=== PATIENT | female | born 1940 | race Caucasian/White ===

== ENCOUNTER → 2017-02-14 | Outpatient (CLI) | payer OTHER ==
[~2017-02-14] MED LIST: AMLO10TA2 PO; ASPI81TA28 PO; CHOL100027 PO; CHOL20007 PO; INSDGI SC; INSUINJ14 SC; LISI40TA PO; LVQ750 PO; METF500T PO; METO-217 PO; NVLGI/PEN SQ; PLMINS INH; PLV75 PO; PRED1SUS3 OPR; PRVHFAIN INH; RISP3TAB12 PO; VEIN SUPPORT PO; VENL150C56 PO; VENL75CA PO
[2017-02-14 14:44] LABS: HEMATOCRIT 39.4 % (37-47); MEAN CORPUSCULAR HEMOGLOBIN 26.9 pg (25-34); PLATELET COUNT 200 K/uL (130-400); RED BLOOD COUNT 4.69 M/uL (4.2-5.4); WHITE BLOOD COUNT 6.59 K/uL (4.8-10.8)
[2017-02-14 14:45] LABS: URINE APPEARANCE CLEAR (CLEAR); URINE BILIRUBIN NEG (NEG); URINE COLOR YELLOW; URINE EPITHELIAL CELL AUTO 0-5 /lpf (0-5); URINE NITRITE NEG (NEG); URINE PH 7.5 (4.5-7.5); URINE SPECIFIC GRAVITY 1.006 (1.000-1.030); UROBILINOGEN NEG (NEG)
[2017-02-14 14:47] LABS: MANUAL MICROSCOPIC REQUIRED? NO; REVIEW REQ? NO
[2017-02-14 15:17] LABS: ALB/GLOB RATIO 1.1 (0.9-2); ALT/SGPT 21 U/L (12-78); AST/SGOT 10 U/L (15-37); BLOOD UREA NITROGEN 23 mg/dl (7-18); BUN/CREATININE RATIO 24.5 (10-20); CARBON DIOXIDE 33 mmol/L (21-32); CREATININE 0.92 mg/dl (0.60-1.20); GLUCOSE 91 mg/dl (70-99)
[2017-02-14 15:18] LABS: CREATININE, URINE < 13.0 mg/dl; URINE TOTAL PROTEIN 6.5 mg/dl (0-11.9)
[2017-02-14 15:50] LABS: ALKALINE PHOSPHATASE 64 U/L (45-117); CHLORIDE 100 mmol/L (98-107); POTASSIUM 4.1 mmol/L (3.5-5.1); SODIUM 139 mmol/L (136-145)
[2017-02-15 05:41] LABS: ESTIMATED AVERAGE GLUCOSE 114 mg/dl; HA1C FLAG Normal (Normal)
== END | disposition home or self-care (01) ==
LOC: C.LAB1850 13:38
PROVIDERS: ATTEND Internal Medicine Nephrology
DX: I12.9 Hypertensive chronic kidney disease with stage 1 through stage 4 chronic kidney disease, or unspecified chronic kidney disease (principal); R80.9 Proteinuria, unspecified; N18.3 Chronic kidney disease, stage 3 (moderate); E55.9 Vitamin D deficiency, unspecified; E66.9 Obesity, unspecified; E11.65 Type 2 diabetes mellitus with hyperglycemia

== ENCOUNTER → 2017-05-22 | Outpatient (CLI) | payer OTHER ==
[~2017-05-22] MED LIST changes: -CHOL20007 PO; -LVQ750 PO; -NVLGI/PEN SQ; -PLMINS INH; -PLV75 PO; -PRVHFAIN INH
[2017-05-22 16:13] LABS: BLOOD UREA NITROGEN 23 mg/dl (7-18); BUN/CREATININE RATIO 25.4 (10-20); CALCIUM 9.1 mg/dl (8.5-10.1); CARBON DIOXIDE 32 mmol/L (21-32); CHLORIDE 101 mmol/L (98-107); CHOLESTEROL 140 mg/dl (0-200); CREATININE 0.92 mg/dl (0.60-1.20); GLUCOSE 140 mg/dl (70-99); POTASSIUM 4.2 mmol/L (3.5-5.1); SODIUM 137 mmol/L (136-145); TRIGLYCERIDES 216 mg/dl (0-150); VERY LOW DENSITY LIPOPROT CALC 43 mg/dl
[2017-05-22 16:23] LABS: CHOLESTEROL/HDL RATIO 3.1; HDL CHOLESTEROL 45 mg/dl; LDL CHOLESTEROL CALCULATED 52 mg/dl
[2017-05-23 06:29] LABS: ESTIMATED AVERAGE GLUCOSE 131 mg/dl; HA1C FLAG Normal (Normal)
== END | disposition home or self-care (01) ==
LOC: C.LAB1850 14:11
PROVIDERS: ATTEND Nurse Practitioner Adult Health
DX: E78.1 Pure hyperglyceridemia (principal); E11.319 Type 2 diabetes mellitus with unspecified diabetic retinopathy without macular edema; Z68.36 Body mass index [BMI] 36.0-36.9, adult; E66.9 Obesity, unspecified

== ENCOUNTER 2017-07-22 09:30 | Inpatient (IN) | payer OTHER ==
[~2017-07-22] VITALS: Ht 152.4 cm; Wt 92.4 kg
[2017-07-22] MEDS ORDERED: INSDGI SC (09:52)
[2017-07-22] MEDS ORDERED: CHOL20007 PO (09:52)
[2017-07-22] MEDS ORDERED: NVLGI/PEN SQ (09:52)
--- NOTE | 2017-07-22 10:27 | DIAGNOSTIC IMAGING REPORT ---
CHEST ONE VIEW PORTABLE CLINICAL HISTORY: Fusion, shortness of breath. COMPARISON STUDY: 04/20/2015 FINDINGS: The cardiac and mediastinal contours are normal. There is no evidence of focal pulmonary consolidation. There is no evidence of failure. No pleural effusions are visualized.[ IMPRESSION: No active disease in the chest. Electronically signed by: Wilbert Koenig M.D. 07/22/2017 10:26 AM Dictated Date/Time: 07/22/2017 10:24 AM
[2017-07-22 11:08] LABS: URINE APPEARANCE CLEAR (CLEAR); URINE BILIRUBIN NEG (NEG); URINE COLOR DK YELLOW; URINE EPITHELIAL CELL AUTO >30 /lpf (0-5); URINE NITRITE NEG (NEG); URINE PH 5.5 (4.5-7.5); URINE SPECIFIC GRAVITY 1.019 (1.000-1.030); UROBILINOGEN NEG (NEG); ZZURINE CULT IF INDIC CATH NO
[2017-07-22 11:10] LABS: BASO % 0.2 %; BASO ABS # 0.01 K/uL (0-0.2); COMPLETE YES; EOS % 0.3 %; HEMATOCRIT 34.2 % (37-47); IG% 0.7 %; LYMPH % 4.1 %; LYMPH ABS # 0.25 K/uL (1.2-3.4); MEAN CELL VOLUME 80.7 fL (80-100); MEAN CORPUSCULAR HEMOGLOBIN 26.9 pg (25-34); MEAN CORPUSCULAR HGB CONC 33.3 g/dl (32-36); MEAN PLATELET VOLUME 10.6 fL (7.4-10.4); MONO % 3.6 %; NEUT % 91.1 %; PLATELET COUNT 114 K/uL (130-400); RED BLOOD COUNT 4.24 M/uL (4.2-5.4); WHITE BLOOD COUNT 6.03 K/uL (4.8-10.8)
[2017-07-22 11:10] LABS: MANUAL MICROSCOPIC REQUIRED? NO; REVIEW REQ? YES
[2017-07-22 11:17] LABS: BUN/CREATININE RATIO 27.9 (10-20); CREATININE 1.11 mg/dl (0.60-1.20); POTASSIUM 3.5 mmol/L (3.5-5.1)
[2017-07-22 11:18] LABS: INR 1.4 (0.9-1.1); PARTIAL THROMBOPLASTIN RATIO 1.3; PROTHROMBIN TIME (PATIENT) 14.7 SECONDS (9.0-12.0)
--- NOTE | 2017-07-22 11:19 | DIAGNOSTIC IMAGING REPORT ---
HEAD WITHOUT CONTRAST (CT) CT DOSE: 614.27 mGy.cm HISTORY: Mental status change AMS TECHNIQUE: Multiaxial CT images of the head were performed without the use of intravenous contrast. A dose lowering technique was utilized adhering to the principles of ALARA. Comparison: None. Findings: The paranasal sinuses and mastoid air cells are clear. The calvarium and skull base are intact. The ventricles and sulci are within normal limits. There is no mass, hematoma, midline shift, or acute infarct. Impression: No acute intracranial abnormality. The above report was generated using voice recognition software. It may contain grammatical, syntax or spelling errors. Electronically signed by: Jamar Vanegas M.D. 07/22/2017 11:17 AM Dictated Date/Time: 07/22/2017 11:12 AM
[2017-07-22] MEDS ORDERED: ASPIRIN 81 MG CHEW PO STA (11:35)
[2017-07-22 11:37] LABS: URINE PATH CASTS 1-5 GRANULAR CASTS /lpf (0)
[2017-07-22] MEDS: ASPIRIN 324 MG CHEW PO STA ×2 (11:59→12:04)
[2017-07-22] MEDS ORDERED: OPTIRAY 320 IV PRN (12:30)
[2017-07-22] MEDS ORDERED: ACETAMINOPHEN 325 MG TAB PO PRN (12:45)
[2017-07-22] MEDS ORDERED: MAGNESIUM HYDROXIDE SUSP 30 ML UDC PO PRN (12:45)
[2017-07-22] MEDS ORDERED: GLUCOSE 10 TABS/TUBE PO PRN (12:45)
[2017-07-22] MEDS ORDERED: PHARMACIST DISCHARGE MED REC CONSULT PRN (12:45)
[2017-07-22] MEDS ORDERED: DEXTROSE 50% 50 ML SYR IV PRN (12:45)
[2017-07-22] MEDS ORDERED: ONDANSETRON INJ 2 MG/ML 2 ML VIAL IV PRN (12:45)
[2017-07-22] MEDS ORDERED: GLUCOSE 40% GEL 15 GM TUBE PO PRN (12:45)
[2017-07-22] MEDS ORDERED: GLUCAGON FOR INJ 1 MG VIAL SQ PRN (12:45)
--- NOTE | 2017-07-22 13:00 | History and Physical ---
History & Physical Date & Time of Service: Jul 22, 2017 at 12:41 Chief Complaint: Hot, Confusion, Shuffling, Curtis, Sob Primary Care Physician: Tab Bellamy M.D. History of Present Illness Source: patient, family 77 y/o F who was brought to the ED for concerns of possible CVA. Pt states she has felt very hot and flushed over the last few days. Daughter states that pt is usually cold and covered up, but that she was complaining of being over heated during this time. Pt states "I thought I might have the flu". She had little appetite and slept more during this time. Last night, it was noted that pt was not able to communicate as she usually would. She was unable to form complete sentences and had some work finding issues with slight slurring. She was also unable to ambulate on her own. She could stand, but not move her LE as she usually would. Pt generally ambulates independently. Daughter states that pt's BS was 330 during this episode. Her BS have been in the low to mid 100s recently as she is working on weight loss with diet and exercise (no supplements ) with a Dr. Crawford, a weight loss doctor in the area. She was seen by Dr. Crawford earlier today and it was again noted that her gait was not its usual. Daughter states that as the day has gone on, it continues to improve. Her speech and mentation are now WNL. Her BP at that appt earlier was 150s/50, which daughter states is a bit high for pt (generally 140s systolic). Pt denies SOB, however daughter states that her son noted that pt seemed to be having difficulty breathing. Pt denies fever, chest pain, abd pain, n/v/c/d, LE pain or swelling. Pt does note that she feels abd bloating. As part of her weight loss plan, she does eat a lot of vegetables and has been having more broccoli lately. Again, no supplements for weight loss. Pt states she still feels a bit flushed at this point, but overall improved. She states that she had this flushing feeling a few years ago. It was determined at that time she might have had a mini-stroke, but it was unclear. She was not admitted at that time. She was started on aspirin 81mg, which she states she rarely misses and specifically did not miss over the last week. 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 hx of TIA, on aspirin 81mg Family History Family history was reviewed; no changes noted. neg for LA, CVA Social History Smoking Status: Former Smoker (quit in 2011) Alcohol Use: none Marital Status: single, Occupational Status: retired Immunizations History of Influenza Vaccine: Yes Influenza Vaccine Date: Aug 09, 2011 History of Tetanus Vaccine?: Yes Tetanus Immunization Date: Apr 08, 2007 History of Pneumococcal: Yes Pneumococcal Date: Apr 08, 2012 History of Hepatitis B Vaccine: No Multi-Drug Resistant Organisms History of MDRO: No Allergies Coded Allergies: Bacitracin (Verified Allergy, Unknown, UNKNOWN, 07/22/17) Polymyxin B (Verified Allergy, Unknown, UNKNOWN, 07/22/17) Adhesives (Verified Adverse Reaction, Mild, RED AND ITCHY, 07/22/17) Home Medications Scheduled Amlodipine Besylate (Norvasc), 10 MG PO QAM Aspirin (Aspirin Ec), 81 MG PO QAM Cholecalciferol (Vitamin D 1000 Unit), 1,000 INTER.UNIT PO QAM Cholecalciferol (Vitamin D3), 2,000 UNITS PO DAILY Insulin Aspart (Novolog Flexpen), 6-8 UNITS SQ TIDM Insulin Glargine (Lantus), 16 UNITS SC QPM Lisinopril (Zestril), 40 MG PO QAM Metformin Hcl (Glucophage), 500 MG PO BIDM Metoprolol Succinate (Toprol Xl), 50 MG PO QAM Risperidone (Risperdal), 3 MG PO QAM Venlafaxine Hcl (Effexor Xr), 75 MG PO QAM Venlafaxine Hcl (Effexor Extended Rel), 150 MG PO QAM Review of Systems Pertinent positives and negatives reviewed in HPI--all others negative Physical Exam Vital Signs Date Time Temp Pulse Resp B/P (MAP) Pulse Ox O2 Delivery O2 Flow Rate FiO2 07/22/17 11:17 77 18 124/48 96 Nasal Cannula 2.0 07/22/17 10:52 93 Nasal Cannula 2.0 07/22/17 10:52 86 20 137/52 88 Room Air 07/22/17 10:16 87 20 149/53 91 07/22/17 10:15 86 07/22/17 09:31 37.0 87 18 145/75 90 Room Air General Appearance: WD/WN, no apparent distress Head: normocephalic, atraumatic Eyes: normal inspection, EOMI ENT: hearing grossly normal Neck: supple Respiratory/Chest: normal breath sounds, no respiratory distress Cardiovascular: regular rate, rhythm, no edema Abdomen/GI: non tender, soft, + distended Extremities/Musculoskelatal: no calf tenderness, no pedal edema 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, alert, normal mood/affect, oriented x 3 Skin: normal color, warm/dry (increased skin temp) Diagnostics Laboratory Results Results Past 24 Hours Test 07/22/17 10:10 07/22/17 10:34 Range/Units Urine Color DK YELLOW Urine Appearance CLEAR CLEAR Urine pH 5.5 4.5-7.5 Urine Specific [place] 1.019 1.000-1.030 Urine Protein 2+ NEG Urine Glucose (UA) NEG NEG Urine Ketones NEG NEG Urine Occult Blood NEG NEG Urine Nitrite NEG NEG Urine Bilirubin NEG NEG Urine Urobilinogen NEG NEG Urine Leukocyte Esterase NEG NEG Urine WBC (Auto) 1-5 0-5 /hpf Urine RBC (Auto) 0-4 0-4 /hpf Urine Hyaline Casts (Auto) 5-10 0-5 /lpf Urine Epithelial Cells (Auto) >30 0-5 /lpf Urine Bacteria (Auto) NEG NEG Urine Crystals AMORPHOUS SEDIMENT NONE PRSENT Urine Pathogenic Casts 1-5 GRANULAR CASTS 0 /lpf White Blood Count 6.03 4.8-10.8 K/uL Red Blood Count 4.24 4.2-5.4 M/uL Hemoglobin 11.4 12.0-16.0 g/dL Hematocrit 34.2 37-47 % Mean Corpuscular Volume 80.7 80-100 fL Mean Corpuscular Hemoglobin 26.9 25-34 pg Mean Corpuscular Hemoglobin Concent 33.3 32-36 g/dl Platelet Count 114 130-400 K/uL Mean Platelet Volume 10.6 7.4-10.4 fL Neutrophils (%) (Auto) 91.1 % Lymphocytes (%) (Auto) 4.1 % Monocytes (%) (Auto) 3.6 % Eosinophils (%) (Auto) 0.3 % Basophils (%) (Auto) 0.2 % Neutrophils # (Auto) 5.49 1.4-6.5 K/uL Lymphocytes # (Auto) 0.25 1.2-3.4 K/uL Monocytes # (Auto) 0.22 0.11-0.59 K/uL Eosinophils # (Auto) 0.02 0-0.5 K/uL Basophils # (Auto) 0.01 0-0.2 K/uL RDW Standard Deviation 45.5 36.4-46.3 fL RDW Coefficient of Variation 15.5 11.5-14.5 % Immature Granulocyte % (Auto) 0.7 % Immature Granulocyte # (Auto) 0.04 0.00-0.02 K/uL Prothrombin Time 14.7 9.0-12.0 SECONDS Prothromb Time International Ratio 1.4 0.9-1.1 Activated Partial Thromboplast Time 33.9 21.0-31.0 SECONDS Partial Thromboplastin Ratio 1.3 D-Dimer 2009 0-500 ug/L FEU Sodium Level 126 136-145 mmol/L Potassium Level 3.5 3.5-5.1 mmol/L Chloride Level 92 98-107 mmol/L Carbon Dioxide Level 26 21-32 mmol/L Anion Gap 8.0 3-11 mmol/L Blood Urea Nitrogen 31 7-18 mg/dl Creatinine 1.11 0.60-1.20 mg/dl Est Creatinine Clear Calc Drug Dose 41.6 ml/min Estimated GFR () 54.7 Estimated GFR (Non- 47.2 BUN/Creatinine Ratio 27.9 10-20 Random Glucose 162 70-99 mg/dl Calcium Level 8.0 8.5-10.1 mg/dl Total Bilirubin 0.8 0.2-1 mg/dl Direct Bilirubin 0.4 0-0.2 mg/dl Aspartate Amino Transf (AST/SGOT) 226 15-37 U/L Alanine Aminotransferase (ALT/SGPT) 277 12-78 U/L Alkaline Phosphatase 49 45-117 U/L Troponin I 0.050 0-0.045 ng/ml Total Protein 6.3 6.4-8.2 gm/dl Albumin 2.8 3.4-5.0 gm/dl Diagnostic Radiology CT head neg for acute CXR normal EKG NSR with RBBB, seen prior Impression Assessment and Plan 77 y/o F who was admitted on 07/22 with possible stroke Stroke like sx: Hx of similar with dx of TIA CT head neg for acute Trop with mild elevation, serials pending ECHO pending Flu swab given flushing Lyme, TSH pending PT/OT pending + ddimer: in the setting of elderly female, given unusual sx and new O2 requirement, will order LE US and t/c CT chest HypoNa: ? related to nutritional status vs recently elevated BS Monitor on fluid restriction t/c salt tab if not improving Transaminitis: in the setting of illness and weight loss Monitor and will consider US if no improvement New O2 req: as above, stable on 2L t/c CT chest if other work-up is neg DM: BS recently quite elevated, but improved now Continue with home lantus + SSI PRN A1c pending HTN: continue home meds Hx of ?? TIA: continue aspirin 81mg Depression/paranoia: continue home meds Other: Does wish for cardiac resuscitation, but no intubation. Also states she would not want a feeding tube or other life prolonging measures DM diet SCDs for DVT proph Level of Care Telemetry Resuscitation Status FULL NO MECH VENTILATION VTE Prophylaxis VTE Risk Assessment Done? Y/N: Yes Risk Level: Low
--- NOTE | 2017-07-22 13:19 | DIAGNOSTIC IMAGING REPORT ---
CT ANGIOGRAM OF THE CHEST CLINICAL HISTORY: Hypoxia. COMPARISON STUDY: No previous studies for comparison. TECHNIQUE: Following the IV administration of 94 mL of [id number]-320, CT angiogram of the thorax was performed from the thoracic inlet to the lung bases utilizing the pulmonary embolus protocol. Images are reviewed in the axial, sagittal, and coronal planes. IV contrast was administered without complication. MIP imaging was performed. A dose lowering technique was utilized adhering to the principles of ALARA. CT DOSE: 568.01 mGy.cm FINDINGS: No pathologically enlarged axillary mediastinal or hilar lymph nodes were visualized. There was no evidence of thoracic aortic dilatation. There were no pulmonary artery filling defects to indicate acute pulmonary embolism. No pleural effusions are visualized. There is no focal pulmonary consolidation. There are mild dependent atelectatic changes. The heart is mildly enlarged. No pericardial effusion is visualized IMPRESSION: 1. No evidence of acute pulmonary embolism 2. No evidence of focal pulmonary consolidation Electronically signed by: Wilbert Koenig M.D. 07/22/2017 1:18 PM Dictated Date/Time: 07/22/2017 1:13 PM
[2017-07-22 13:20] VITALS: O2SAT 97; Ht 152.4 cm; Wt 92.4 kg
[2017-07-22 13:54] VITALS: BP 115/71; PULSE 87; TEMP 37; O2SAT 96
[2017-07-22 14:51] LABS: LYME DISEASE AB IGG NEG (NEG); LYME DISEASE AB IGM NEG (NEG)
--- NOTE | 2017-07-22 15:15 | EMERGENCY ROOM VISIT NOTE ---
History Report prepared by Scott: Emeterio Rodriguez Under the Supervision of: Dr. Raymond Pate D.O. First contact with patient: 09:37 Chief Complaint: CONFUSION Stated Complaint: HOT, CONFUSION, SHUFFLING, HAWK, SOB Nursing Triage Summary: pt reports she is hot and daughter reports pt was having difficulty finding words yesterday to form sentances. c/o headache late yesterday afternoon. denies any pain now. pt is dibetic yesterday was 330 given insulin. today was 187 given insulin History of Present Illness The patient is a 77 year old female who presents to the Emergency Room with complaints of resolved altered mental status beginning yesterday. She was seen by her PCP today and was referred to the ED with concerns of possible stroke. She was reported to have been having trouble finding words yesterday and could hardly speak, but is back to normal today. The patient is also reported to have been having some difficulty with walking. She states that her "skin has felt very hot" recently. She also complains of lack of appetite and shakiness. The patient states that she had a headache yesterday, but it has since resolved. She denies chest pain, SOB, nausea, vomiting, fevers, diarrhea, weakness, numbness, or urinary symptoms. Her last normal bowel movement was this morning. The patient's daughter states that the patient has been "shuffling" when she is walking. She states that the patient's walk has returned to normal. She notes that the patient's blood sugar was 330 yesterday. Source of History: patient, family (daughter) Onset: Yesterday Quality: other Timing: resolved Associated Symptoms: + headache (yesterday), No fevers, No chest pain, No SOB, No nausea, No vomiting, No urinary symptoms, No weakness, No numbness Review of Systems See HPI for pertinent positives & negatives. A total of 10 systems reviewed and were otherwise negative. Past Medical & Surgical Medical Problems: (1) Depression (2) DM (diabetes mellitus) (3) HTN (hypertension) (4) Kidney disease Surgical Problems: (1) Hx of tonsillectomy Family History Diabetes mellitus Heart disease Hypertension Social History Smoking Status: Never Smoker Alcohol Use: none Marital Status: single, Housing Status: lives with family Occupation Status: retired Current/Historical Medications Scheduled Amlodipine Besylate (Norvasc), 10 MG PO QAM Aspirin (Aspirin Ec), 81 MG PO QAM Cholecalciferol (Vitamin D 1000 Unit), 1,000 INTER.UNIT PO QAM Cholecalciferol (Vitamin D3), 2,000 UNITS PO DAILY Insulin Aspart (Novolog Flexpen), 6-8 UNITS SQ TIDM Insulin Glargine (Lantus), 16 UNITS SC QPM Lisinopril (Zestril), 40 MG PO QAM Metformin Hcl (Glucophage), 500 MG PO BIDM Metoprolol Succinate (Toprol Xl), 50 MG PO QAM Risperidone (Risperdal), 3 MG PO QAM Venlafaxine Hcl (Effexor Xr), 75 MG PO QAM Venlafaxine Hcl (Effexor Extended Rel), 150 MG PO QAM Allergies Coded Allergies: Bacitracin (Verified Allergy, Unknown, UNKNOWN, 07/22/17) Polymyxin B (Verified Allergy, Unknown, UNKNOWN, 07/22/17) Adhesives (Verified Adverse Reaction, Mild, RED AND ITCHY, 07/22/17) Physical Exam Vital Signs Date Time Temp Pulse Resp B/P (MAP) Pulse Ox O2 Delivery O2 Flow Rate FiO2 07/22/17 11:17 77 18 124/48 96 Nasal Cannula 2.0 07/22/17 10:52 93 Nasal Cannula 2.0 07/22/17 10:52 86 20 137/52 88 Room Air 07/22/17 10:16 87 20 149/53 91 07/22/17 10:15 86 07/22/17 09:31 37.0 87 18 145/75 90 Room Air Physical Exam GENERAL: Sitting up on edge of bed, slow to respond, disheveled, no acute distress. EYE EXAM: normal conjunctiva. PERRL and EOM's intact. OROPHARYNX: no exudate, no erythema, lips, buccal mucosa, and tongue normal and mucous membranes are moist NECK: supple, no nuchal rigidity, no adenopathy, non-tender LUNGS: Clear to auscultation. Normal chest wall mechanics HEART: no murmurs, S1 normal and S2 normal ABDOMEN: abdomen soft, non-tender, normo-active bowel sounds, no masses, no rebound or guarding. BACK: Back is symmetrical on inspection and there is no deformity, no midline tenderness, no CVA tenderness. SKIN: no rashes and no bruising UPPER EXTREMITIES: upper extremities are grossly normal. LOWER EXTREMITIES: No pitting edema. NEURO EXAM: Normal sensorium, cranial nerves II-XII intact, normal speech, no weakness of arms, no weakness of legs. No drift. Finger to nose intact. Gross sensation intact. Ambulates without difficulty. Medical Decision & Procedures ER Provider Diagnostic Interpretation: Radiology results as stated below per my review and the radiologist's interpretation: HEAD WITHOUT CONTRAST (CT) Findings: The paranasal sinuses and mastoid air cells are clear. The calvarium and skull base are intact. The ventricles and sulci are within normal limits. There is no mass, hematoma, midline shift, or acute infarct. Impression: No acute intracranial abnormality. The above report was generated using voice recognition software. It may contain grammatical, syntax or spelling errors. Electronically signed by: Jamar Vanegas M.D. 07/22/2017 11:17 AM CHEST ONE VIEW PORTABLE FINDINGS: The cardiac and mediastinal contours are normal. There is no evidence of focal pulmonary consolidation. There is no evidence of failure. No pleural effusions are visualized.[ IMPRESSION: No active disease in the chest. Electronically signed by: Wilbert Koenig M.D. 07/22/2017 10:26 AM Laboratory Results 07/22/17 10:34 Red Blood Count 4.24, Mean Corpuscular Volume 80.7, Mean Corpuscular Hemoglobin 26.9, Mean Corpuscular Hemoglobin Concent 33.3, Mean Platelet Volume 10.6, Neutrophils (%) (Auto) 91.1, Lymphocytes (%) (Auto) 4.1, Monocytes (%) (Auto) 3.6, Eosinophils (%) (Auto) 0.3, Basophils (%) (Auto) 0.2, Neutrophils # (Auto) 5.49, Lymphocytes # (Auto) 0.25, Monocytes # (Auto) 0.22, Eosinophils # (Auto) 0.02, Basophils # (Auto) 0.01 07/22/17 10:34 Test 07/22/17 10:10 07/22/17 10:34 Urine Color DK YELLOW Urine Appearance CLEAR (CLEAR) Urine pH 5.5 (4.5-7.5) Urine Specific [place] 1.019 (1.000-1.030) Urine Protein 2+ (NEG) Urine Glucose (UA) NEG (NEG) Urine Ketones NEG (NEG) Urine Occult Blood NEG (NEG) Urine Nitrite NEG (NEG) Urine Bilirubin NEG (NEG) Urine Urobilinogen NEG (NEG) Urine Leukocyte Esterase NEG (NEG) Urine WBC (Auto) 1-5 /hpf (0-5) Urine RBC (Auto) 0-4 /hpf (0-4) Urine Hyaline Casts (Auto) 5-10 /lpf (0-5) Urine Epithelial Cells (Auto) >30 /lpf (0-5) Urine Bacteria (Auto) NEG (NEG) Urine Crystals AMORPHOUS SEDIMENT (NONE Urine Pathogenic Casts 1-5 GRANULAR CASTS /lpf (0) White Blood Count 6.03 K/uL (4.8-10.8) Red Blood Count 4.24 M/uL (4.2-5.4) Hemoglobin 11.4 g/dL (12.0-16.0) Hematocrit 34.2 % (37-47) Mean Corpuscular Volume 80.7 fL (80-100) Mean Corpuscular Hemoglobin 26.9 pg (25-34) Mean Corpuscular Hemoglobin Concent 33.3 g/dl (32-36) Platelet Count 114 K/uL (130-400) Mean Platelet Volume 10.6 fL (7.4-10.4) Neutrophils (%) (Auto) 91.1 % Lymphocytes (%) (Auto) 4.1 % Monocytes (%) (Auto) 3.6 % Eosinophils (%) (Auto) 0.3 % Basophils (%) (Auto) 0.2 % Neutrophils # (Auto) 5.49 K/uL (1.4-6.5) Lymphocytes # (Auto) 0.25 K/uL (1.2-3.4) Monocytes # (Auto) 0.22 K/uL (0.11-0.59) Eosinophils # (Auto) 0.02 K/uL (0-0.5) Basophils # (Auto) 0.01 K/uL (0-0.2) RDW Standard Deviation 45.5 fL (36.4-46.3) RDW Coefficient of Variation 15.5 % (11.5-14.5) Immature Granulocyte % (Auto) 0.7 % Immature Granulocyte # (Auto) 0.04 K/uL (0.00-0.02) Prothrombin Time 14.7 SECONDS (9.0-12.0) Prothromb Time International Ratio 1.4 (0.9-1.1) Activated Partial Thromboplast Time 33.9 SECONDS (21.0-31.0) Partial Thromboplastin Ratio 1.3 D-Dimer 2010 ug/L FEU (0-500) Anion Gap 8.0 mmol/L (3-11) Est Creatinine Clear Calc Drug Dose 41.6 ml/min Estimated GFR () 54.7 Estimated GFR (Non- 47.2 BUN/Creatinine Ratio 27.9 (10-20) Calcium Level 8.0 mg/dl (8.5-10.1) Total Bilirubin 0.8 mg/dl (0.2-1) Direct Bilirubin 0.4 mg/dl (0-0.2) Aspartate Amino Transf (AST/SGOT) 226 U/L (15-37) Alanine Aminotransferase (ALT/SGPT) 277 U/L (12-78) Alkaline Phosphatase 49 U/L (45-117) Troponin I 0.050 ng/ml (0-0.045) Total Protein 6.3 gm/dl (6.4-8.2) Albumin 2.8 gm/dl (3.4-5.0) Lyme Disease IgG Antibody NEG (NEG) Lyme Disease IgM Antibody NEG (NEG) Laboratory results per my review. Medications Administered Medications (Trade) Dose Ordered Sig/Jakub Route Start Time Stop Time Status Last Admin Dose Admin Aspirin (Aspirin Chew) 324 mg NOW STAT PO 07/22/17 11:35 07/22/17 11:36 DC 07/22/17 12:01 324 MG ECG Indication: altered mental status Rate (beats per minute): 90 Rhythm: sinus rhythm Findings: RBBB, other (T-wave flattening inferiorly) ED Course ED COURSE: Vital signs were reviewed and showed mild hypertension. The patients medical record was reviewed The above diagnostic studies were performed and reviewed. ED treatments and interventions as stated above. 0939: The patient was evaluated in room B4B. A complete history and physical examination was performed. 1135: Ordered Aspirin Chew 324 mg PO. 1144: Upon reevaluation, the patient is resting comfortably. I discussed my findings with the patient and she understands and agrees with the treatment plan. Based on the patients age, coexisting illnesses, exam and lab findings the decision to treat as an inpatient was made. The patient remained stable while under my care. The patient will be evaluated for further management. Medical Decision Differential diagnoses includes but is not limited to toxic, metabolic, infectious, traumatic, cardiac, neurologic, hematologic, psychiatric and inflammatory etiologies. Patient is a 77-year-old female who presents to ER feeling hot and shaky. Family notes that yesterday patient had a slurred speech and difficulty talking. She also notes patient has been having trouble inability. Patient saw PCP today. Patient's completely neurologically intact today. CBC was unremarkable. Sodium was 126 along with a transaminitis in the 200s and elevated troponin at 0.05. EKG was nondiagnostic. D-dimer was elevated and CT PE was performed and was negative with the hypoxia. CT head was negative. Chest x-ray was unremarkable. Patient was given fluids. She was updated at bedside admits internal medicine for altered mental status, possible TIA, hypernatremia and transaminitis. Medication Reconcilliation Current Medication List: was personally reviewed by me Blood Pressure Screening Patient's blood pressure: Elevated blood pressure Blood pressure disposition: Elevated BP felt to be situational Consults Time Called: 1135 Consulting Physician: Dr. Ledesma -FELICITY Returned Call: [phone] I reviewed the patient's case with Dr. Ledesma. [facility] [place] will evaluate the patient for further management. Impression Primary Impression: Hyponatremia Additional Impressions: Transaminitis Elevated troponin Anemia Scribe Attestation The scribe's documentation has been prepared under my direction and personally reviewed by me in its entirety. I confirm that the note above accurately reflects all work, treatment, procedures, and medical decision making performed by me. Departure Information Dispostion Being Evaluated By Hospitalist Referrals Tab Bellamy M.D. (PCP) Patient Instructions My [facility] Problem Qualifiers Additional Impressions: Anemia Anemia type: unspecified type Qualified Codes: D64.9 - Anemia, unspecified
[2017-07-22 15:27] VITALS: BP 138/63; PULSE 87; TEMP 36.8; O2SAT 95
--- NOTE | 2017-07-22 16:41 | ECHOCARDIOGRAM REPORT ---
*NOTICE TO RECEIVING [facility] This information is strictly Confidential and protected under [place] law. [place] law prohibits you from making any further disclosure of this information unless further disclosure is expressly permitted by the written consent of the person to whom it pertains or is authorized by law. A general authorization for the release of medical or other information is not sufficient for this purpose. Hospital accepts no responsibility if the information is made available to any other person, INCLUDING THE PATIENT. Interpretation Summary * Name: SAMANTHA REDDY Study Date: 07/22/2017 02:36 PM BP: 124/48 mmHg * Patient Location: .2T\S\S232\S\1 HR: 77 * : 1940 (M/d/yyy) Gender: Female Height: 60 in * Age: 77 yrs Ethnicity: CA Weight: 202 lb * Ordering Physician: Inna Ledesma * Performed By: Andree Giron RDCS * * Reason For Study: ELEVATED TROP * BSA: 1.9 m2 * -- Conclusions -- * There is borderline concentric left ventricular hypertrophy. * Left ventricular systolic function is normal. * Grade I diastolic dysfunction, (abnormal relaxation pattern). * Compared to an echocardiogram from 2012 there is no significant change Procedure Details * A complete two-dimensional transthoracic echocardiogram was performed (2D, M-mode, Doppler and color flow Doppler). * The study was technically difficult. * There were technical limitations due to patient'sbody habitus * A contrast injection of Definity was performed to improve assessment of LV function. * Contrast was injected into an intravenous site in the left arm. * One vial of Definity ultrasound contrast was diluted in normal saline to a total volume of 10 ml. A total of '3' ml of solution was administered during imaging. * Lot # [id number] of Definity utilized for procedure. * Expiration date 07/16. * The attending nurse who injected the contrast agent was LISBET MURPHY RN. Left Ventricle * The left ventricle is normal in size. * There is borderline concentric left ventricular hypertrophy. * Ejection Fraction = >70 %. * Left ventricular systolic function is normal. * Grade I diastolic dysfunction, (abnormal relaxation pattern). * The left ventricular wall motion is normal. Right Ventricle * The right ventricle is grossly normal size. * The right ventricular systolic function is normal as assessed by tricuspid annular plane systolic excursion (TAPSE) (normal >1.5 cm). Atria * The left atrial size is normal. * Right atrial size is normal. Mitral Valve * The mitral valve anatomy is normal. * Significant mitral regurgitation is absent. Tricuspid Valve * The tricuspid valve is not well visualized. * Significant tricuspid regurgitation is absent. Aortic Valve * The aortic valve is normal in structure and function. * No hemodynamically significant valvular aortic stenosis. * No aortic regurgitation is present. Pericardium/Pleural * There is no pericardial effusion. Great Vessels * Normal inferior vena cava diameter and respiratory variation suggests normal central venous pressure. MMode 2D Measurements and Calculations IVSd 1.5 cm IVSs 2.0 cm LVIDd 4.3 cm LVIDs 2.7 cm LVPWd 1.3 cm LVPWs 1.9 cm IVS/LVPW 1.2 FS 37.3 % EDV(Teich) 81.5 ml ESV(Teich) 26.4 ml EF(Teich) 67.6 % EDV(cubed) 77.6 ml ESV(cubed) 19.1 ml EF(cubed) 75.3 % % IVS thick 27.5 % % LVPW thick 45.1 % LV mass(C)d 231.8 grams LV mass(C)dI 123.7 grams/m\S\2 LV mass(C)s 212.7 grams LV mass(C)sI 113.5 grams/m\S\2 SV(Teich) 55.1 ml SI(Teich) 29.4 ml/m\S\2 SV(cubed) 58.4 ml SI(cubed) 31.2 ml/m\S\2 ACS 1.5 cm LA dimension 3.5 cm asc Aorta Diam 2.5 cm LVOT diam 1.8 cm LVOT area 2.4 cm\S\2 LVAd ap4 30.8 cm\S\2 LVLd ap4 7.3 cm EDV(MOD-sp4) 106.2 ml EDV(sp4-el) 110.7 ml LVAs ap4 15.0 cm\S\2 LVLs ap4 5.9 cm ESV(MOD-sp4) 32.5 ml ESV(sp4-el) 32.5 ml EF(MOD-sp4) 69.4 % EF(sp4-el) 70.6 % LVAd ap2 34.1 cm\S\2 LVLd ap2 7.9 cm EDV(MOD-sp2) 120.1 ml EDV(sp2-el) 124.8 ml LVAs ap2 16.3 cm\S\2 LVLs ap2 6.4 cm ESV(MOD-sp2) 35.4 ml ESV(sp2-el) 34.8 ml EF(MOD-sp2) 70.5 % EF(sp2-el) 72.1 % LVLd %diff 8.0 % EDV(MOD-bp) 118.3 ml LVLs %diff 8.5 % ESV(MOD-bp) 33.3 ml EF(MOD-bp) 71.9 % SV(MOD-sp4) 73.8 ml SI(MOD-sp4) 39.4 ml/m\S\2 SV(MOD-sp2) 84.7 ml SI(MOD-sp2) 45.2 ml/m\S\2 SV(MOD-bp) 85.1 ml SI(MOD-bp) 45.4 ml/m\S\2 SV(sp4-el) 78.2 ml SI(sp4-el) 41.7 ml/m\S\2 SV(sp2-el) 90.0 ml SI(sp2-el) 48.0 ml/m\S\2 Doppler Measurements and Calculations MV E max vivian 99.8 cm/sec MV A max vivian 113.8 cm/sec MV E/A 0.88 MV dec time 0.26 sec Ao V2 max 153.6 cm/sec Ao max PG 9.4 mmHg Ao max PG (full) 3.5 mmHg NAYELI(V,A) 1.9 cm\S\2 NAYELI(V,D) 1.9 cm\S\2 LV V1 max PG 5.9 mmHg LV V1 max 121.5 cm/sec PA V2 max 66.9 cm/sec PA max PG 1.8 mmHg
[2017-07-22] MEDS: INSULIN ASPART 100 UNITS/ML 3 ML PEN SC SCH ×2 (17:11→21:12)
[2017-07-22 19:05] LABS: CKMB/CK RATIO 0.6 (0-3.0)
--- NOTE | 2017-07-22 19:10 | DIAGNOSTIC IMAGING REPORT ---
BILATERAL LOWER EXTREMITY VENOUS DOPPLER HISTORY: new O2 req, + ddimer COMPARISON STUDY: None. FINDINGS: There is normal compressibility, flow, and augmentation within the bilateral lower extremity deep venous systems. IMPRESSION: No DVT within the right or left lower extremity. Electronically signed by: Willam Reyes M.D. 07/22/2017 7:09 PM Dictated Date/Time: 07/22/2017 7:08 PM
[2017-07-22 20:00] VITALS: BP 125/76; PULSE 78; TEMP 37; O2SAT 96
[2017-07-22] MEDS ORDERED: NURSING VERBAL MED ORDER ONE (20:45)
[2017-07-22] MEDS ORDERED: INSULIN GLARGINE SOLOSTAR 100 UNITS/ML 3 ML PEN SC SCH (21:00)
[2017-07-22] MEDS ORDERED: RISPERIDONE 3 MG TAB PO SCH (21:00)
[2017-07-22 23:47] VITALS: BP 154/78; PULSE 75; TEMP 36.8; O2SAT 97
[2017-07-22 23:59] VITALS: O2SAT 97
[2017-07-23 01:17] LABS: INFLUENZA A PCR Neg for Influ A (NEG); INFLUENZA B PCR Neg for Influ B (NEG)
[2017-07-23 03:18] LABS: BUN/CREATININE RATIO 28.8 (10-20); CALCIUM 8.1 mg/dl (8.5-10.1); CKMB/CK RATIO 0.7 (0-3.0); CREATININE 0.96 mg/dl (0.60-1.20); POTASSIUM 3.3 mmol/L (3.5-5.1)
[2017-07-23 03:59] VITALS: BP 147/75; PULSE 74; TEMP 37.6; O2SAT 96
[2017-07-23 04:00] VITALS: O2SAT 96
[2017-07-23] MEDS ORDERED: POTASSIUM CHLORIDE 20 MEQ TABCR PO STA (05:57)
[2017-07-23 06:56] LABS: ESTIMATED AVERAGE GLUCOSE 134 mg/dl; HA1C FLAG Normal (Normal)
[2017-07-23 07:36] VITALS: BP 144/66; PULSE 76; TEMP 36.9; O2SAT 96
[2017-07-23] MEDS: INSULIN ASPART 100 UNITS/ML 3 ML PEN SC SCH ×2 (08:11→12:33)
--- NOTE | 2017-07-23 08:48 | Clinical Documentation Query ---
CLINICAL DOCUMENTATION QUERY 77 y/o F who was admitted on 07/22 with possible stroke: In your clinical opinion is this patient being managed for: ( ) Encephalopathy, resolved ( x ) Not Agree, AMS related to TIA ( ) Other explanation of clinical findings (Please Explain) ( ) Unable to determine (Please Define) ( ) Need to Discuss The medical record reflects the following clinical findings, treatment, and risk factors. Clinical Indicators: Altered mental status, confusion, lethargic, BSG 330 Treatment: CT head/chest, aspiration precautions, neuro checks Risk Factors: Age, possible TIA/CVA, fall risk Please clarify and document your clinical opinion in the progress notes and discharge summary. Terms such as "probable", "suspected", "likely", "questionable", "possible", or "still to be ruled out" are acceptable. IF IN AGREEMENT, YOU MUST DOCUMENT ABOVE DIAGNOSTIC STATEMENT IN DAILY PROGRESS NOTES AND DISCHARGE SUMMARY. This document is not part of the patient's record. Thank You, Nanette Shaefr RN [phone]
[2017-07-23] MEDS ORDERED: CHOLECALCIFEROL 1000 INTER.UNIT TAB PO SCH ×2 (09:00)
[2017-07-23] MEDS ORDERED: VENLAFAXINE HCL XR 150 MG CAPXR PO SCH (09:00)
[2017-07-23] MEDS ORDERED: ASPIRIN 81 MG ECTAB PO SCH (09:00)
[2017-07-23] MEDS ORDERED: VENLAFAXINE HCL XR 75 MG CAPXR PO SCH (09:00)
[2017-07-23] MEDS ORDERED: METOPROLOL SUCC 50MG EXT REL TAB PO SCH (09:00)
[2017-07-23] MEDS ORDERED: RISPERIDONE 3 MG TAB PO SCH (09:00)
[2017-07-23] MEDS ORDERED: LISINOPRIL 40 MG TAB PO SCH (09:00)
[2017-07-23] MEDS ORDERED: AMLODIPINE BESYLATE 5 MG TAB PO SCH (09:00)
[2017-07-23 09:42] LABS: MEAN CORPUSCULAR HGB CONC 33.5 g/dl (32-36)
[2017-07-23 09:48] LABS: HEMATOCRIT 32.5 % (37-47); MEAN CORPUSCULAR HEMOGLOBIN 26.8 pg (25-34); RED BLOOD COUNT 4.06 M/uL (4.2-5.4); WHITE BLOOD COUNT 4.13 K/uL (4.8-10.8)
[2017-07-23 10:30] VITALS: BP 137/76; PULSE 72; TEMP 36.6; O2SAT 93
[2017-07-23 10:40] LABS: MEAN PLATELET VOLUME 11.6 fL (7.4-10.4); PLATELET COUNT 86 K/uL (130-400)
[2017-07-23 10:41] LABS: PLT ESTIMATE DECREASED
--- NOTE | 2017-07-23 13:49 | Discharge Instructions ---
Discharge Instructions Date of Service Jul 23, 2017. Admission Reason for Admission: Confusion,Difficulty Walking Discharge Discharge Diagnosis / Problem: Transient ischemic attack Discharge Goals Goal(s): Decrease discomfort, Improve function, Diagnostic testing, Therapeutic intervention Activity Recommendations Activity Limitations: resume your previous activity (as tolerated) . Instructions / Follow-Up Instructions / Follow-Up You were admitted to the hospital after presenting with transient difficulty speaking, confusion, and gait dysfunction. A head CT scan was negative for acute stroke. Your symptoms did resolve on their own, and this is thought to be secondary to a transient ischemic attack (TIA) or "mini-stroke". A cholesterol panel was checked, and this showed that your cholesterol levels are all very low except for your triglycerides. Initiation of a cholesterol medication was held at this time due to your other cholesterol being so low. An echocardiogram or ultrasound of the heart was also checked, and this was normal. Medications: *No changes were made to your medications. Please be sure to take your aspirin every day. Your primary care provider may decide to later add on a medication to help lower your triglycerides. Follow up: *You have been scheduled to follow up at Dr. Bellamy's office with Megan Gtz on July 28 at 1:50 pm. Please seek medical attention if you experience fevers, chills, sweats, changes in vision, dizziness/lightheadedness, loss of consciousness, fall, sudden weakness especially on one side, trouble speaking, slurred speech, chest pain, shortness of breath, nausea, vomiting, numbness or tingling. Risk Factors for Stroke: You can reduce your chances of stroke by working with your medical provider to adopt a healthy lifestyle. Some specific ways to lower your chance of stroke are: * If you are a smoker, now is the time to stop smoking cigarettes * If you are diabetic, improve the control of your blood sugars * Avoid excessive amounts of alcohol * Control high blood pressure * Lose weight if you are overweight * Be sure to lead an active lifestyle * Eat a healthy diet low in salt, cholesterol and fat You should know about other risk factors for stroke that you are unable to control. These include: * Age 55 years or older * Male gender * Certain racial groups: , or / * Family History of Stroke, Mini stroke or Heart Attack * Sickle Cell Disease Follow Up: It is important for you to keep your follow up appointments with your medical provider. Current Hospital Diet Patient's current hospital diet: Diabetes Type 2 Diet Discharge Diet Recommended Diet: AHA Diet (Heart Healthy), Diabetes Type 2 Diet Pending Studies Studies pending at discharge: no Laboratory Results Hemoglobin A1c Test 07/23/17 02:23 Range/Units Estimated Average Glucose 134 mg/dl Hemoglobin A1c 6.3 H 4.5-5.6 % Lipid Panel Test 07/23/17 02:23 Range/Units Triglycerides Level 220 H 0-150 mg/dl Cholesterol Level 72 0-200 mg/dl HDL Cholesterol 12 mg/dl Cholesterol/HDL Ratio 6.0 LDL Cholesterol, Calculated 16 mg/dl Medical Emergencies . Who to Call and When: Medical Emergencies: Call 911 immediately if you experience any of the following warning signs and symptoms of Stroke: * Sudden numbness or weakness of the face, arm or leg, especially on one side of the body * Sudden confusion, trouble speaking or understanding * Sudden trouble seeing in one or both eyes * Sudden trouble walking, dizziness, loss of balance or coordination * Sudden severe headache with no cause Do not delay calling 911 if you experience any warning signs or symptoms of a stroke. Delay in seeking medical attention may affect what treatments can be given to you. . Non-Emergent Contact Non-Emergency issues call your: Primary Care Provider . Past History Medical & Surgical History: (1) TIA (transient ischemic attack) . "Provider Documentation" section prepared by Natividad Basilio. . Stroke Core Measures Reason no t-PA for Stroke: Treatment not indicated Reason no antithrom by day 2: Treatment not indicated Reason no antithrom at D/C: Treatment provided - N/A Reason no statin at D/C: Treatment not indicated (cholesterol very low) Reason no anticoag w/a fib: Treatment not indicated VTE Core Measure Inpt VTE Proph given/why not?: SCD's
[2017-07-23 13:59] VITALS: BP 137/76; PULSE 72; TEMP 36.6; O2SAT 93
--- NOTE | 2017-07-23 15:18 | Discharge Summary ---
Discharge Summary Date of Service Jul 23, 2017. (Natividad Basilio PA-C) Discharge Summary Admission Date: Jul 22, 2017 at 12:40 Discharge Date: Jul 23, 2017 Discharge Disposition: Home Principal Diagnosis: TIA Problems/Secondary Diagnoses: HTN DM II Immunizations: Have You Had Influenza Vaccine: Yes Influenza Vaccine Date: Aug 09, 2011 History of Tetanus Vaccine?: Yes Tetanus Immunization Date: Apr 08, 2007 History of Pneumococcal: Yes Pneumococcal Date: Apr 08, 2012 History of Hepatitis B Vaccine: No Procedures: Echocardiogram: * The tricuspid valve is not well visualized. * Significant tricuspid regurgitation is absent. Aortic Valve * The aortic valve is normal in structure and function. * No hemodynamically significant valvular aortic stenosis. * No aortic regurgitation is present. Pericardium/Pleural * There is no pericardial effusion. Great Vessels * Normal inferior vena cava diameter and respiratory variation suggests normal central venous pressure. (Natividad Basilio PA-C) Medication Reconciliation Continued Medications: Amlodipine Besylate (Norvasc) 10 Mg Tab 10 MG PO QAM, TAB Aspirin (Aspirin Ec) 81 Mg Tab 81 MG PO QAM Cholecalciferol (Vitamin D 1000 Unit) 1,000 Unit Cap 1000 INTER.UNIT PO QAM, CAP Cholecalciferol (Vitamin D3) 2,000 Unit Tab 2000 UNITS PO DAILY for 90 Days, TAB 3 Refills Insulin Aspart (Novolog Flexpen) 100 Units/Ml Inj 6-8 UNITS SQ TIDM Insulin Glargine (Lantus) 100 Unit/Ml Inj 16 UNITS SC QPM, VIAL Lisinopril (Zestril) 40 Mg Tab 40 MG PO QAM Metformin Hcl (Glucophage) 500 Mg Tab 500 MG PO BIDM, TAB Metoprolol Succinate (Toprol Xl) 50 Mg Tabcr 50 MG PO QAM Risperidone (Risperdal) 3 Mg Tab 3 MG PO QAM Venlafaxine Hcl (Effexor Xr) 75 Mg Cap 75 MG PO QAM 225MG TOTAL Venlafaxine Hcl (Effexor Extended Rel) 150 Mg Cap 150 MG PO QAM 225MG TOTAL Discharge Exam The patient reports feeling well. Per patient and daughter, she is back to baseline. She states her right facial droop is chronic. She denies any trouble with word finding, slurred speech, or any difficulty speaking. The patient denies fevers, chills, sweats, chest pain, palpitations, claudication, cough, wheezing, shortness of breath, nausea, vomiting, abdominal pain, dysuria , hematuria, urinary retention, paralysis, weakness, numbness and tingling. Review of Systems: Constitutional: No fever, No chills, No sweats Eyes: No worsening of vision, No eye pain, No diplopia ENT: No hearing loss, No sore throat, No trouble swallowing Respiratory: No cough, No wheezing, No shortness of breath Cardiovascular: No chest pain, No claudication, No palpitations Abdomen: No pain, No nausea, No vomiting Musculoskeletal: No joint pain, No muscle pain, No calf pain Genitourinary - Female: No dysuria, No urinary retention, No hematuria Neurologic: No paralysis, No weakness, No numbness/tingling Integumentary: No rash, No itch, No color change Physical Exam: General Appearance: WD/WN, no apparent distress, + obese Eyes: normal inspection, PERRL, EOMI ENT: normal ENT inspection, hearing grossly normal, pharynx normal Neck: supple, no JVD, trachea midline Respiratory/Chest: lungs clear, normal breath sounds, no respiratory distress Cardiovascular: regular rate, rhythm, no gallop, no murmur Abdomen / GI: normal bowel sounds, non tender, soft Extremities: normal inspection, no calf tenderness, no pedal edema Neurologic/Psychiatric: no motor/sensory deficits, alert, normal mood/affect , oriented x 3, + facial droop (right side, chronic) Skin: normal color, warm/dry, no rash (Natividad Basilio ., PA-C) Hospital Course 77 y/o female with a history of HTN, DM II, CKD stage III, ?TIA/CVA, depression and paranoia who was admitted on 07/22 with possible stroke. Suspected TIA, h/o ?TIA/CVA--resolved -Admit to telemetry. No acute events overnight. Pt in SR with HR 70s-90s -Stroke protocol -Head CT negative. Pt refuses MRI -Trop mildly elevated initially, then trended down. Peak trop 0.05. Cardiac enzymes otherwise negative x 3 -Echo shows LVEF of 70%, grade 1 diastolic dysfunction. No significant change from 2012 study. -Lipid panel shows triglycerides 220, total cholesterol 72, LDL 16, HDL 12 -No statin at this time due to very low cholesterol levels. Hold off on fenofibrate for now, will leave up to PCP to possibly start at later date -Continue ASA 81 mg PO qd -HgbA1c 6.3 on 07/23 -Flu and Lyme negative. Pt had presented with flushing, resolved -PT/OT--recommend return home with family Elevated d-dimer -Ultrasound negative for DVT -CT chest negative for PE HypoNa: ? related to nutritional status vs recently elevated BS--improving -Sodium 128 on discharge. Asymptomatic Transaminitis--improving -In the setting of illness and weight loss -LFTs trending down on discharge, asymptomatic DM II--A1c as above -Hold metformin -Lantus 16 units SC qpm -Insulin sliding scale -Check BSGs q ac and qhs HTN--stable -Continue amlodipine 10 mg PO qd, lisinopril 40 mg PO qd, and metoprolol succinate 50 mg PO qd CKD stage III--stable -Creatinine stable, at baseline Depression/paranoia--stable -Continue Risperdal 3 mg PO qd and Effexor 225 mg PO qd DVT prophylaxis -SCDs Code Status -Level III, FULL NO [facility] Total Time Spent: Greater than 30 minutes This includes examination of the patient, discharge planning, medication reconciliation, and communication with other providers. (Natividad Basilio ., PA-C) I agree with PA assessment and plan and have seen and examined pt myself Resting comfortably in bed VSS Labs reviewed No neuro deficits elicited Facial droop is residual from previous stroke Pt refusing MRI at this time ECHO unremarkable DC home at this time (Jose E Vang, D.O.) Discharge Instructions Please refer to the electronic Patient Visit Report (Discharge Instructions) for additional information. (Natividad Basilio ., EDDI-C) Additional Copies To Megan Gtz PA-C
== END 2017-07-23 14:55 | disposition home or self-care (01) | DRG 69 ==
LOC: C.EDB 09:31 → C.2T 12:40 → ENRESERV 13:08
PROVIDERS: ADMIT Family Medicine; ATTEND Family Medicine
DX: G45.9 Transient cerebral ischemic attack, unspecified (principal); E87.1 Hypo-osmolality and hyponatremia; R79.1 Abnormal coagulation profile; R74.0 Nonspecific elevation of levels of transaminase and lactic acid dehydrogenase [LDH]; E11.9 Type 2 diabetes mellitus without complications; I12.9 Hypertensive chronic kidney disease with stage 1 through stage 4 chronic kidney disease, or unspecified chronic kidney disease; N18.3 Chronic kidney disease, stage 3 (moderate); F32.9 Major depressive disorder, single episode, unspecified; F22 Delusional disorders; E66.9 Obesity, unspecified; Z68.39 Body mass index [BMI] 39.0-39.9, adult; Z86.73 Personal history of transient ischemic attack (TIA), and cerebral infarction without residual deficits; Z87.891 Personal history of nicotine dependence; Z79.4 Long term (current) use of insulin; Z79.82 Long term (current) use of aspirin; Z79.84 Long term (current) use of oral hypoglycemic drugs; Z79.899 Other long term (current) drug therapy; Z88.1 Allergy status to other antibiotic agents

== ENCOUNTER → 2017-07-28 | Outpatient (CLI) | payer OTHER ==
[~2017-07-28] MED LIST changes: +CHOL20007 PO; -INSUINJ14 SC; +NVLGI/PEN SQ; -PRED1SUS3 OPR; -VEIN SUPPORT PO
[2017-07-28 16:33] LABS: BASO % 0.2 %; BASO ABS # 0.02 K/uL (0-0.2); COMPLETE YES; EOS % 1.9 %; HEMATOCRIT 38.9 % (37-47); IG% 1.4 %; LYMPH % 17.1 %; LYMPH ABS # 1.37 K/uL (1.2-3.4); MEAN CELL VOLUME 83.8 fL (80-100); MEAN CORPUSCULAR HEMOGLOBIN 27.2 pg (25-34); MEAN CORPUSCULAR HGB CONC 32.4 g/dl (32-36); MONO % 8.7 %; NEUT % 70.7 %; PLATELET COUNT 256 K/uL (130-400); RED BLOOD COUNT 4.64 M/uL (4.2-5.4); WHITE BLOOD COUNT 8.01 K/uL (4.8-10.8)
[2017-07-28 16:37] LABS: ALT/SGPT 78 U/L (12-78); AST/SGOT 24 U/L (15-37); BLOOD UREA NITROGEN 21 mg/dl (7-18); BUN/CREATININE RATIO 22.6 (10-20); CALCIUM 9.2 mg/dl (8.5-10.1); CARBON DIOXIDE 32 mmol/L (21-32); CHLORIDE 99 mmol/L (98-107); CREATININE 0.95 mg/dl (0.60-1.20); GLUCOSE 100 mg/dl (70-99); POTASSIUM 4.6 mmol/L (3.5-5.1); SODIUM 136 mmol/L (136-145)
[2017-07-28 16:39] LABS: ALB/GLOB RATIO 0.9 (0.9-2); ALKALINE PHOSPHATASE 72 U/L (45-117)
== END | disposition home or self-care (01) ==
LOC: C.LAB1850 14:27
PROVIDERS: ATTEND Physician Assistant Medical
DX: E87.1 Hypo-osmolality and hyponatremia (principal); R74.8 Abnormal levels of other serum enzymes; D69.6 Thrombocytopenia, unspecified; R09.89 Other specified symptoms and signs involving the circulatory and respiratory systems; G45.9 Transient cerebral ischemic attack, unspecified; I65.23 Occlusion and stenosis of bilateral carotid arteries

== ENCOUNTER → 2017-07-28 | Outpatient (CLI) | payer OTHER ==
--- NOTE | 2017-07-28 15:57 | DIAGNOSTIC IMAGING REPORT ---
CAROTID DOPPLER NECK ART HISTORY: Mental status change G45.9 Transient ischemic [id number] Carotid [id number] COMPARISON: None. TECHNIQUE: Real-time, grayscale, and color Doppler sonography of the carotid arteries was performed. Imaging reviewed in the transverse and longitudinal planes. All measurements were calculated based on NASCET criteria. FINDINGS: Antegrade flow is seen in the bilateral vertebral arteries. The brachial pressures are hemodynamically similar. Considerable plaque formation bilaterally The peak systolic velocity within the right ICA is 251. The right systolic ratio is 3.3. The peak systolic velocity within the left ICA is 62. The left systolic ratio is 1.4. IMPRESSION: 1. Considerable plaque formation bilaterally. 2. 80% stenosis right internal carotid artery. 3. High-grade stenosis of the external carotid arteries bilaterally. The above report was generated using voice recognition software. It may contain grammatical, syntax or spelling errors. Electronically signed by: Jamar Vanegas M.D. 07/28/2017 3:56 PM Dictated Date/Time: 07/28/2017 3:55 PM
== END | disposition home or self-care (01) ==
LOC: C.ULTR 14:56
PROVIDERS: ATTEND Physician Assistant Medical
DX: R09.89 Other specified symptoms and signs involving the circulatory and respiratory systems (principal); G45.9 Transient cerebral ischemic attack, unspecified; I65.23 Occlusion and stenosis of bilateral carotid arteries

== ENCOUNTER → 2017-08-19 | Outpatient (CLI) | payer OTHER ==
[2017-08-19 09:39] LABS: HEMATOCRIT 38.6 % (37-47); MEAN CELL VOLUME 84.8 fL (80-100); MEAN CORPUSCULAR HEMOGLOBIN 27.9 pg (25-34); MEAN CORPUSCULAR HGB CONC 32.9 g/dl (32-36); MEAN PLATELET VOLUME 11.6 fL (7.4-10.4); PLATELET COUNT 199 K/uL (130-400); RED BLOOD COUNT 4.55 M/uL (4.2-5.4); WHITE BLOOD COUNT 5.16 K/uL (4.8-10.8)
[2017-08-19 09:43] LABS: MANUAL MICROSCOPIC REQUIRED? YES; URINE APPEARANCE CLEAR (CLEAR); URINE BILIRUBIN NEG (NEG); URINE COLOR YELLOW; URINE NITRITE NEG (NEG); URINE PH 5.5 (4.5-7.5); UROBILINOGEN NEG (NEG)
[2017-08-19 09:44] LABS: REVIEW REQ? NO
[2017-08-19 09:52] LABS: URINE BACTERIA NEG (NEG); URINE RBC 0-4 /hpf (0-4)
[2017-08-19 09:56] LABS: ESTIMATED AVERAGE GLUCOSE 128 mg/dl; HA1C FLAG Normal (Normal)
[2017-08-19 09:58] LABS: BLOOD UREA NITROGEN 24 mg/dl (7-18); BUN/CREATININE RATIO 25.2 (10-20); CALCIUM 9.2 mg/dl (8.5-10.1); CARBON DIOXIDE 31 mmol/L (21-32); CHLORIDE 100 mmol/L (98-107); CREATININE 0.96 mg/dl (0.60-1.20); GLUCOSE 170 mg/dl (70-99); PHOSPHORUS 3.8 mg/dl (2.5-4.9); POTASSIUM 4.3 mmol/L (3.5-5.1); SODIUM 138 mmol/L (136-145)
[2017-08-19 10:05] LABS: CREATININE, URINE 41.6 mg/dl; URINE PROTIEN/CREAT RATIO 0.6 (0-0.2); URINE TOTAL PROTEIN 25.2 mg/dl (0-11.9)
== END | disposition home or self-care (01) ==
LOC: C.LAB1850 07:19
PROVIDERS: ATTEND Internal Medicine Nephrology
DX: E11.319 Type 2 diabetes mellitus with unspecified diabetic retinopathy without macular edema (principal); Z79.4 Long term (current) use of insulin; I12.9 Hypertensive chronic kidney disease with stage 1 through stage 4 chronic kidney disease, or unspecified chronic kidney disease; N18.3 Chronic kidney disease, stage 3 (moderate); R80.9 Proteinuria, unspecified; E55.9 Vitamin D deficiency, unspecified

== ENCOUNTER 2017-08-26 22:50 | Inpatient (IN) | payer OTHER ==
[~2017-08-26] VITALS: Ht 152.4 cm; Wt 91.3 kg
--- NOTE | 2017-08-26 23:22 | EMERGENCY ROOM VISIT NOTE ---
History Report prepared by Scott: Jean Marie Rodriguez Under the Supervision of: Dr. Jazzmine Duran D.O. First contact with patient: 22:58 Chief Complaint: CONFUSION Stated Complaint: CONFUSION, UNABLE TO FIND WORDS History of Present Illness The patient is a 77 year old female who presents to the Emergency Room with complaints of persistent confusion starting last night. The patient's family states that the patient has been having difficulty finding words, weakness, and a headache that started this afternoon. The patient additionally had some congestion and shortness of breath. She denies any falls or recent traumas. The patient was in the ED a couple of weeks ago for similar symptoms consistent with a TIA, and the patient currently denies any fevers. 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 She also has a history of another TIA five years ago, and she has had an intracranial hemorrhage in the past as well. Additionally, the patient's family notes that the stomach flu has been going around her family. The patient does not have difficulty breathing at baseline. Source of History: patient, family Onset: last night Position: other (global) Quality: other (confusion) Timing: other (persistent) Associated Symptoms: + headache, + SOB, + weakness Note: Associated symptoms: Difficulty finding words and congestion Review of Systems See HPI for pertinent positives & negatives. A total of 10 systems reviewed and were otherwise negative. Past Medical & Surgical Medical Problems: (1) Depression (2) DM (diabetes mellitus) (3) HTN (hypertension) (4) Kidney disease (5) TIA (transient ischemic attack) Surgical Problems: (1) Hx of tonsillectomy Family History Diabetes mellitus Heart disease Hypertension Social History Smoking Status: Never Smoker Alcohol Use: none Marital Status: single, Housing Status: lives with family Occupation Status: retired Current/Historical Medications Scheduled Amlodipine Besylate (Norvasc), 10 MG PO QAM Aspirin (Aspirin Ec), 81 MG PO QAM Cholecalciferol (Vitamin D 1000 Unit), 1,000 INTER.UNIT PO QAM Cholecalciferol (Vitamin D3), 2,000 UNITS PO DAILY Clopidogrel Bisulfate (Clopidogrel), 75 MG PO DAILY Insulin Aspart (Novolog Flexpen), 6-8 UNITS SQ TIDM Insulin Glargine (Lantus), 16 UNITS SC QPM Lisinopril (Zestril), 40 MG PO QAM Metformin Hcl (Glucophage), 500 MG PO BIDM Metoprolol Succinate (Toprol Xl), 50 MG PO QAM Risperidone (Risperdal), 3 MG PO QAM Venlafaxine Hcl (Effexor Xr), 75 MG PO QAM Venlafaxine Hcl (Effexor Extended Rel), 150 MG PO QAM Allergies Coded Allergies: Bacitracin (Verified Allergy, Unknown, UNKNOWN, 08/26/17) Polymyxin B (Verified Allergy, Unknown, UNKNOWN, 08/26/17) Adhesives (Verified Adverse Reaction, Mild, RED AND ITCHY, 08/26/17) Physical Exam Vital Signs Date Time Temp Pulse Resp B/P (MAP) Pulse Ox O2 Delivery O2 Flow Rate FiO2 08/27/17 01:06 88 96 08/27/17 01:01 165/61 96 Nasal Cannula 2.0 08/27/17 00:55 92 32 93 08/27/17 00:40 94 96 08/27/17 00:31 174/67 08/27/17 00:25 93 94 08/27/17 00:10 95 20 94 08/27/17 00:05 98 19 95 08/27/17 00:01 185/65 08/26/17 23:31 174/71 08/26/17 23:27 39.2 08/26/17 23:26 176/64 08/26/17 23:20 94 30 95 Nasal Cannula 2.0 08/26/17 23:19 93 Nasal Cannula 2.0 08/26/17 23:09 95 08/26/17 23:02 Nasal Cannula 2.0 08/26/17 22:54 36.7 101 20 184/72 91 Room Air Physical Exam HEENT: Head - normocephalic and atraumatic. Pupils are equal, round, and reactive to light. Extraocular eye muscles are intact and sclera are anicteric. Ears - bilaterally patent canals with noninjected tympanic membranes and no evidence of hemotympanum. Nose - moist nasal mucosa without discharge. Mouth - extremely dry buccal mucosa. Oropharynx is nonerythematous and there is no tonsillar exudate or edema noted. Neck: Supple; no JVD, nuchal rigidity, cervical lymphadenopathy. Heart: Regular rate and rhythm. There is a normal S1 and S2 with no murmurs, clicks, or gallops appreciated. Lungs: Diminished breath sounds bilaterally. Clear to auscultation bilaterally with no wheezes, rales, or rhonchi. Abdomen: Soft, completely nontender, nondistended, with good bowel sounds. There are no palpable pulsatile masses or hepatosplenomegaly. There is no guarding, rigidity, or rebound noted. Extremities: No evidence of cyanosis, clubbing, or edema. There are easily palpable peripheral pulses. Skin: Skin has poor turgor, it is dry and hot. Neuro:The patient is awake and alert, oriented to day, time, and place. Muscle strength is 5/5 in all 4 extremities. The patient has equal distribution driver strength and equal pedal push and pull. The patient has pass-pointing Medical Decision & Procedures ER Provider Diagnostic Interpretation: X-ray results as stated below per interpretation by me: Chest One View: Right upper lobe early infiltrate. Radiology results as stated below per my review and the radiologist's interpretation: CT HEAD: Comparison: CT Dated 07/22/2017. No evidence of acute intracranial abnormality. Stable mild senescent changes of the brain. Laboratory Results 08/26/17 23:12 Red Blood Count 4.31, Mean Corpuscular Volume 82.4, Mean Corpuscular Hemoglobin 27.8, Mean Corpuscular Hemoglobin Concent 33.8, Mean Platelet Volume 10.7, Neutrophils (%) (Auto) 93.1, Lymphocytes (%) (Auto) 1.5, Monocytes (%) (Auto) 4.8, Eosinophils (%) (Auto) 0.0, Basophils (%) (Auto) 0.1, Neutrophils # (Auto) 22.54, Lymphocytes # (Auto) 0.36, Monocytes # (Auto) 1.15, Eosinophils # (Auto) 0.00, Basophils # (Auto) 0.02 08/26/17 23:12 Test 08/26/17 23:12 08/26/17 23:18 08/27/17 00:09 08/27/17 01:00 White Blood Count 24.20 K/uL (4.8-10.8) Red Blood Count 4.31 M/uL (4.2-5.4) Hemoglobin 12.0 g/dL (12.0-16.0) Hematocrit 35.5 % (37-47) Mean Corpuscular Volume 82.4 fL (80-100) Mean Corpuscular Hemoglobin 27.8 pg (25-34) Mean Corpuscular Hemoglobin Concent 33.8 g/dl (32-36) Platelet Count 197 K/uL (130-400) Mean Platelet Volume 10.7 fL (7.4-10.4) Neutrophils (%) (Auto) 93.1 % Lymphocytes (%) (Auto) 1.5 % Monocytes (%) (Auto) 4.8 % Eosinophils (%) (Auto) 0.0 % Basophils (%) (Auto) 0.1 % Neutrophils # (Auto) 22.54 K/uL (1.4-6.5) Lymphocytes # (Auto) 0.36 K/uL (1.2-3.4) Monocytes # (Auto) 1.15 K/uL (0.11-0.59) Eosinophils # (Auto) 0.00 K/uL (0-0.5) Basophils # (Auto) 0.02 K/uL (0-0.2) RDW Standard Deviation 47.8 fL (36.4-46.3) RDW Coefficient of Variation 15.7 % (11.5-14.5) Immature Granulocyte % (Auto) 0.5 % Immature Granulocyte # (Auto) 0.13 K/uL (0.00-0.02) Prothrombin Time 12.9 SECONDS (9.0-12.0) Prothromb Time International Ratio 1.2 (0.9-1.1) Activated Partial Thromboplast Time 32.7 SECONDS (21.0-31.0) Partial Thromboplastin Ratio 1.3 Anion Gap 8.0 mmol/L (3-11) Est Creatinine Clear Calc Drug Dose 43.1 ml/min Estimated GFR () 57.2 Estimated GFR (Non- 49.3 BUN/Creatinine Ratio 22.7 (10-20) Calcium Level 8.8 mg/dl (8.5-10.1) Total Bilirubin 0.6 mg/dl (0.2-1) Aspartate Amino Transf (AST/SGOT) 11 U/L (15-37) Alanine Aminotransferase (ALT/SGPT) 19 U/L (12-78) Alkaline Phosphatase 60 U/L (45-117) Total Creatine Kinase 45 U/L (26-192) Creatine Kinase MB 0.5 ng/ml (0.5-3.6) Troponin I 0.048 ng/ml (0-0.045) Pro-B-Type Natriuretic Peptide 1352 pg/ml (0-1800) Total Protein 6.9 gm/dl (6.4-8.2) Albumin 3.3 gm/dl (3.4-5.0) Globulin 3.6 gm/dl (2.5-4.0) Albumin/Globulin Ratio 0.9 (0.9-2) Bedside Lactic Acid Venous 2.10 mmol/L (0.90-1.70) Creatine Kinase MB Ratio (0-3.0) Urine Color YELLOW Urine Appearance CLEAR (CLEAR) Urine pH 6.0 (4.5-7.5) Urine Specific [place] 1.020 (1.000-1.030) Urine Protein 2+ (NEG) Urine Glucose (UA) NEG (NEG) Urine Ketones NEG (NEG) Urine Occult Blood NEG (NEG) Urine Nitrite NEG (NEG) Urine Bilirubin NEG (NEG) Urine Urobilinogen NEG (NEG) Urine Leukocyte Esterase NEG (NEG) Urine WBC (Auto) 1-5 /hpf (0-5) Urine RBC (Auto) 0-4 /hpf (0-4) Urine Hyaline Casts (Auto) 1-5 /lpf (0-5) Urine Epithelial Cells (Auto) 20-30 /lpf (0-5) Urine Bacteria (Auto) NEG (NEG) Laboratory results per my review. Medications Administered Medications (Trade) Dose Ordered Sig/Jakub Route Start Time Stop Time Status Last Admin Dose Admin Sodium Chloride 500 ml @ 999 mls/hr Q31M STAT IV 08/27/17 00:08 08/27/17 00:38 DC 08/27/17 00:12 999 MLS/HR Acetaminophen (Tylenol Tab) 1,000 mg NOW STAT PO 08/27/17 00:24 08/27/17 00:26 DC 08/27/17 00:34 1,000 MG Piperacillin Sod/ Tazobactam Sod (Zosyn Iv) 4.5 gm NOW STAT IV 08/27/17 00:24 08/27/17 00:26 DC 08/27/17 00:41 4.5 GM Levofloxacin (Levaquin / D5W) 750 mg NOW ONCE IV 08/27/17 00:30 08/27/17 00:31 DC 08/27/17 00:36 750 MG Procedure NSS IV, Zosyn IV, Tylenol Tab, Levofloxacin IV ECG Indication: other (confusion) Rate (beats per minute): 97 Rhythm: normal sinus Findings: RBBB, ST depression (Lateral and inferior) Comparison ECG Date: 07/22/17 Change: The ST depressions in the lateral and inferior leads are new. ED Course 2303: Past medical records reviewed. The patient was evaluated in room C2. A complete history and physical exam was performed. A septic protocol was performed. The patient went for CT scan of the brain because of the increasing headache and recently starting Plavix. She had an EKG as described above. She had a chest x-ray as described above.. She attempted to give urine specimen was unsuccessful. 0008: Sodium Chloride 500 ml @ 999 mls/hr IV. 0024: Zosyn IV 4.5gm IV, Tylenol Tab 1000mg PO 0026: I reevaluated the patient, and she is doing well. I went over the treatment plan with her and the family, and they were agreeable. 0028: Discussed the patient's case with Dr. Squires. The patient will be evaluated for further management. 0030: Levofloxacin 750mg IV Medical Decision The patient is a 77 year old female who presents to the ED with confusion. Differential diagnosis includes sepsis, hyponatremia, TIA, intracranial hemorrhage, pneumonia, and dehydration. Lab results: Lactic acid of 2.1, white count of 24.2, 93% neutrophils, stable H& H, sodium of 129, BUN 24, creatinine 1.0, glucose 186, LFTs are normal, and troponin of 0.048 This is a 77-year-old female patient who presents to the emergency department with confusion, shortness of breath, and chills. The patient was noted to be hypoxic on presentation. She was placed on supplemental oxygen. She appeared significantly dehydrated on physical exam. Her mental status seemed to be normal except for some mild confusion. Occasionally she would appear to be word finding. Patient had a significant leukocytosis and left shift with an elevated lactic acid. The patient was started on antibiotics to treat what appeared to be a right-sided pneumonia. I discussed the case with the [facility] hospitalist and they will evaluate further management. Medication Reconcilliation Current Medication List: was personally reviewed by me Blood Pressure Screening Patient's blood pressure: Elevated blood pressure Monitored by the hospitalist Consults Time Called: 23 Consulting Physician: Dr. Squires Returned Call: 27 Discussed the patient's case with Dr. Squires, [facility]. The patient will be evaluated for further management. Impression Primary Impression: Sepsis Additional Impressions: Hyponatremia Pneumonia involving right lung Hypoxia Scribe Attestation The scribe's documentation has been prepared under my direction and personally reviewed by me in its entirety. I confirm that the note above accurately reflects all work, treatment, procedures, and medical decision making performed by me. Departure Information Dispostion Being Evaluated By Hospitalist Referrals Tab Bellamy M.D. (PCP) Patient Instructions My [facility] Problem Qualifiers Primary Impression: Sepsis Sepsis type: sepsis due to unspecified organism Qualified Codes: A41.9 - Sepsis, unspecified organism Additional Impressions: Pneumonia involving right lung Pneumonia type: due to unspecified organism Lung location: upper lobe of lung Qualified Codes: J18.1 - Lobar pneumonia, unspecified organism
[2017-08-26 23:29] LABS: HEMATOCRIT 35.5 % (37-47); MEAN CELL VOLUME 82.4 fL (80-100); MEAN CORPUSCULAR HEMOGLOBIN 27.8 pg (25-34); MEAN CORPUSCULAR HGB CONC 33.8 g/dl (32-36); MEAN PLATELET VOLUME 10.7 fL (7.4-10.4); PLATELET COUNT 197 K/uL (130-400); RED BLOOD COUNT 4.31 M/uL (4.2-5.4)
[2017-08-26] MEDS ORDERED: PLV75 PO (23:37)
[2017-08-26 23:41] LABS: INR 1.2 (0.9-1.1); PARTIAL THROMBOPLASTIN RATIO 1.3; PROTHROMBIN TIME (PATIENT) 12.9 SECONDS (9.0-12.0)
[2017-08-26 23:49] LABS: BUN/CREATININE RATIO 22.7 (10-20); CALCIUM 8.8 mg/dl (8.5-10.1); CREATININE 1.07 mg/dl (0.60-1.20); POTASSIUM 3.7 mmol/L (3.5-5.1)
[2017-08-26 23:52] LABS: ALB/GLOB RATIO 0.9 (0.9-2)
[2017-08-26 23:56] LABS: BASO % 0.1 %; BASO ABS # 0.02 K/uL (0-0.2); COMPLETE YES; IG% 0.5 %; LYMPH % 1.5 %; LYMPH ABS # 0.36 K/uL (1.2-3.4); MONO % 4.8 %; NEUT % 93.1 %
[2017-08-27] VITALS (13 sets, daily range): BP systolic 109–168; BP diastolic 65–73; PULSE 77–98; TEMP 36.7–38.2; O2SAT 93–97; Ht 152.4 cm; Wt 91.3 kg
[2017-08-27] MEDS ORDERED: SODIUM CHLORIDE 0.9% 500ML 500 ML IV STA (00:08)
[2017-08-27] MEDS ORDERED: ACETAMINOPHEN 500 MG TAB PO STA (00:24)
[2017-08-27] MEDS ORDERED: PIPERACILLIN/TAZOBACTAM 4.5 GM/100ML D5W IV STA (00:24)
[2017-08-27] MEDS ORDERED: LEVAQUIN 750MG / 150ML D5W IV ONE (00:30)
[2017-08-27 00:49] LABS: CKMB/CK RATIO 1.1 (0-3.0)
[2017-08-27 01:26] LABS: URINE APPEARANCE CLEAR (CLEAR); URINE BILIRUBIN NEG (NEG); URINE COLOR YELLOW; URINE EPITHELIAL CELL AUTO 20-30 /lpf (0-5); URINE NITRITE NEG (NEG); UROBILINOGEN NEG (NEG); ZZURINE CULT IF INDIC CATH NO
[2017-08-27] MEDS ORDERED: ONDANSETRON INJ 2 MG/ML 2 ML VIAL IV PRN (01:30)
[2017-08-27] MEDS ORDERED: DEXTROSE 50% 50 ML SYR IV PRN (01:30)
[2017-08-27] MEDS ORDERED: ACETAMINOPHEN 325 MG TAB PO PRN (01:30)
[2017-08-27] MEDS ORDERED: GLUCOSE 10 TABS/TUBE PO PRN (01:30)
[2017-08-27] MEDS ORDERED: NITROGLYCERIN 0.4 MG SL PER TAB CHARGE SL PRN (01:30)
[2017-08-27] MEDS ORDERED: GLUCAGON FOR INJ 1 MG VIAL SQ PRN (01:30)
[2017-08-27] MEDS ORDERED: GLUCOSE 40% GEL 15 GM TUBE PO PRN (01:30)
[2017-08-27] MEDS ORDERED: VANCOMYCIN INJ 1,000 MG in SODIUM CHLORIDE 0.9% 250ML 250 ML IV STA (01:32)
[2017-08-27] MEDS ORDERED: IPRATROPIUM BROMIDE NEB SOLN 0.02% 2.5 ML VIAL INH PRN (01:45)
[2017-08-27] MEDS ORDERED: CEFEPIME IV 1,000 MG in DEXTROSE 5% 100ML 100 ML IV SCH (01:45)
[2017-08-27] MEDS ORDERED: LEVALBUTEROL 1.25MG/0.5ML NEB INH PRN (01:45)
--- NOTE | 2017-08-27 01:46 | History and Physical ---
History & Physical Date & Time of Service: Aug 27, 2017 at 01:35 Chief Complaint: Confusion, Unable To Find Words Primary Care Physician: Tab Bellamy M.D. History of Present Illness Source: patient, family, hospital records The patient is a 77-year-old female who is brought to the emergency room after her daughter noticed difficulty with word finding, generalized weakness, headache and shortness of breath that began earlier in the afternoon. These symptoms, except for the shortness of breath, with similar to what brought her into the hospital a little over 1 month ago when she was diagnosed with a TIA. Family reports that the patient was just placed on Plavix 2 days ago due to a worsening of carotid artery stenosis. She does have a history of intracranial hemorrhage. Past Medical/Surgical History Medical Problems: (1) Depression Status: Chronic (2) DM (diabetes mellitus) Status: Chronic (3) HTN (hypertension) Status: Chronic (4) Kidney disease Status: Chronic Surgical Problems: (1) Hx of tonsillectomy Status: Resolved Family History Diabetes mellitus Heart disease Hypertension Social History Smoking Status: Never Smoker Smokeless Tobacco Use: No Alcohol Use: none Drug Use: none Marital Status: single, Occupational Status: retired Immunizations History of Influenza Vaccine: Yes Influenza Vaccine Date: Aug 09, 2011 History of Tetanus Vaccine?: Yes Tetanus Immunization Date: Apr 08, 2007 History of Pneumococcal: Yes Pneumococcal Date: Apr 08, 2012 History of Hepatitis B Vaccine: No Multi-Drug Resistant Organisms History of MDRO: No Allergies Coded Allergies: Bacitracin (Verified Allergy, Unknown, UNKNOWN, 08/26/17) Polymyxin B (Verified Allergy, Unknown, UNKNOWN, 08/26/17) Adhesives (Verified Adverse Reaction, Mild, RED AND ITCHY, 08/26/17) Home Medications Scheduled Amlodipine Besylate (Norvasc), 10 MG PO QAM Aspirin (Aspirin Ec), 81 MG PO QAM Cholecalciferol (Vitamin D 1000 Unit), 1,000 INTER.UNIT PO QAM Cholecalciferol (Vitamin D3), 2,000 UNITS PO DAILY Clopidogrel Bisulfate (Clopidogrel), 75 MG PO DAILY Insulin Aspart (Novolog Flexpen), 6-8 UNITS SQ TIDM Insulin Glargine (Lantus), 16 UNITS SC QPM Lisinopril (Zestril), 40 MG PO QAM Metformin Hcl (Glucophage), 500 MG PO BIDM Metoprolol Succinate (Toprol Xl), 50 MG PO QAM Risperidone (Risperdal), 3 MG PO QAM Venlafaxine Hcl (Effexor Xr), 75 MG PO QAM Venlafaxine Hcl (Effexor Extended Rel), 150 MG PO QAM Review of Systems The patient denies chest pain, palpitations, cough, lower extremity swelling, vision change, hearing change, sore throat, fevers, chills, sweats, weight change, fatigue, nausea, vomiting, diarrhea or constipation, abdominal pain, pelvic pain, blood in urine or stool, dysuria, urinary frequency or urgency, loss of consciousness, rash, abnormal bruising or bleeding, focal weakness, numbness or tingling in arms or legs, generalized arthralgias or myalgias, back or neck pain, or night sweats. The review of systems is otherwise negative other than for that already noted above, and at least 10 systems have been reviewed. Physical Exam Vital Signs Date Time Temp Pulse Resp B/P (MAP) Pulse Ox O2 Delivery O2 Flow Rate FiO2 08/27/17 01:24 37.5 08/27/17 01:21 89 30 94 08/27/17 01:06 88 96 08/27/17 01:01 165/61 96 Nasal Cannula 2.0 08/27/17 00:55 92 32 93 08/27/17 00:40 94 96 08/27/17 00:31 174/67 08/27/17 00:25 93 94 08/27/17 00:10 95 20 94 08/27/17 00:05 98 19 95 08/27/17 00:01 185/65 08/26/17 23:31 174/71 08/26/17 23:27 39.2 08/26/17 23:26 176/64 08/26/17 23:20 94 30 95 Nasal Cannula 2.0 08/26/17 23:19 93 Nasal Cannula 2.0 08/26/17 23:09 95 08/26/17 23:02 Nasal Cannula 2.0 08/26/17 22:54 36.7 101 20 184/72 91 Room Air The patient is awake, well-developed and adequately nourished, alert and oriented 3, normocephalic and atraumatic, lying in bed and in no acute distress. HEENT--PERRL, EOMI, mucous membranes and oropharynx normal. Neck--supple, no JVD or bruits, thyroid normal, trachea midline, no adenopathy. Heart--normal S1 and S2, no extra beats, no murmurs, rubs or gallops. Lungs--decreased breath sounds right side, no respiratory distress, no accessory muscle use. Abdomen--normal bowel sounds and soft, nontender and nondistended, no hernias or masses, no organomegaly. Extremities--no cyanosis, clubbing or edema. There are good distal pulses b/l. Dermatologic--normal skin turgor, normal color, warm and dry, no abnormal lymph nodes, no rash. Neurologic--cranial nerves II through XII grossly intact. Rheumatologic--normal range of motion. Psychiatric--normal affect. Diagnostics Laboratory Results Results Past 24 Hours Test 08/26/17 23:12 08/26/17 23:18 08/27/17 00:09 08/27/17 01:00 Range/Units White Blood Count 24.20 4.8-10.8 K/uL Red Blood Count 4.31 4.2-5.4 M/uL Hemoglobin 12.0 12.0-16.0 g/dL Hematocrit 35.5 37-47 % Mean Corpuscular Volume 82.4 80-100 fL Mean Corpuscular Hemoglobin 27.8 25-34 pg Mean Corpuscular Hemoglobin Concent 33.8 32-36 g/dl Platelet Count 197 130-400 K/uL Mean Platelet Volume 10.7 7.4-10.4 fL Neutrophils (%) (Auto) 93.1 % Lymphocytes (%) (Auto) 1.5 % Monocytes (%) (Auto) 4.8 % Eosinophils (%) (Auto) 0.0 % Basophils (%) (Auto) 0.1 % Neutrophils # (Auto) 22.54 1.4-6.5 K/uL Lymphocytes # (Auto) 0.36 1.2-3.4 K/uL Monocytes # (Auto) 1.15 0.11-0.59 K/uL Eosinophils # (Auto) 0.00 0-0.5 K/uL Basophils # (Auto) 0.02 0-0.2 K/uL RDW Standard Deviation 47.8 36.4-46.3 fL RDW Coefficient of Variation 15.7 11.5-14.5 % Immature Granulocyte % (Auto) 0.5 % Immature Granulocyte # (Auto) 0.13 0.00-0.02 K/uL Prothrombin Time 12.9 9.0-12.0 SECONDS Prothromb Time International Ratio 1.2 0.9-1.1 Activated Partial Thromboplast Time 32.7 21.0-31.0 SECONDS Partial Thromboplastin Ratio 1.3 Sodium Level 129 136-145 mmol/L Potassium Level 3.7 3.5-5.1 mmol/L Chloride Level 94 98-107 mmol/L Carbon Dioxide Level 27 21-32 mmol/L Anion Gap 8.0 3-11 mmol/L Blood Urea Nitrogen 24 7-18 mg/dl Creatinine 1.07 0.60-1.20 mg/dl Est Creatinine Clear Calc Drug Dose 43.1 ml/min Estimated GFR () 57.2 Estimated GFR (Non- 49.3 BUN/Creatinine Ratio 22.7 10-20 Random Glucose 186 70-99 mg/dl Calcium Level 8.8 8.5-10.1 mg/dl Total Bilirubin 0.6 0.2-1 mg/dl Aspartate Amino Transf (AST/SGOT) 11 15-37 U/L Alanine Aminotransferase (ALT/SGPT) 19 12-78 U/L Alkaline Phosphatase 60 45-117 U/L Total Creatine Kinase 45 26-192 U/L Creatine Kinase MB 0.5 0.5-3.6 ng/ml Creatine Kinase MB Ratio 1.1 0-3.0 Troponin I 0.048 0-0.045 ng/ml Pro-B-Type Natriuretic Peptide 1352 0-1800 pg/ml Total Protein 6.9 6.4-8.2 gm/dl Albumin 3.3 3.4-5.0 gm/dl Globulin 3.6 2.5-4.0 gm/dl Albumin/Globulin Ratio 0.9 0.9-2 Bedside Lactic Acid Venous 2.10 0.90-1.70 mmol/L Microbiology Results 08/26/17 Blood Culture, Received Pending 08/26/17 Blood Culture, Received Pending Impression Assessment and Plan Pneumonia involving right lung-- Place on vancomycin IV and cefepime IV due to recent hospitalization a little over 1 month ago. Xopenex with Atrovent nebulizer every 6 hours while awake and every 2 hours when necessary Nasal cannula oxygen, titrate to keep pulse ox greater than or equal to 92% and keep humidified. Pulmicort Respules 0.5 mg inhaled twice a day. Elevated troponin/hypertension/cerebrovascular disease/carotid stenosis-- Troponin is mildly elevated at 0.048. The patient will be admitted to telemetry for serial cardiac enzymes, cardiac rhythm monitoring and a 2-D echocardiogram with Dopplers. Continue amlodipine 10 mg by mouth every morning, aspirin 81 mg by mouth every morning, clopidogrel 75 mg by mouth daily, lisinopril 40 mg by mouth every morning and metoprolol succinate 50 mg by mouth every morning. Diabetes mellitus-- Continue Lantus 16 units subcutaneous in the evening. Place on Accu-Cheks before meals and at bedtime with NovoLog coverage per scale. Hold metformin 500 mg by mouth twice a day. Depression-- Continue risperidone 3 mg every morning and venlafaxine ER 225 mg by mouth every morning. Level of Care Telemetry Advanced Directives Existing Advance Directive: No Existing Living Will: No Existing Power of Sterile Supply Technician: No Resuscitation Status FULL RESUSCITATION VTE Prophylaxis VTE Risk Assessment Done? Y/N: Yes Risk Level: Moderate Given or contraindicated: SCD's Social Service Consult None Apply
[2017-08-27 01:49] LABS: MANUAL MICROSCOPIC REQUIRED? NO; REVIEW REQ? NO
[2017-08-27] MEDS: IPRATROPIUM BROMIDE NEB SOLN 0.02% 2.5 ML VIAL INH SCH ×4 (02:02→19:01)
[2017-08-27] MEDS: LEVALBUTEROL 1.25MG/0.5ML NEB INH SCH ×4 (02:02→19:01)
[2017-08-27] MEDS ORDERED: VANCOMYCIN CONSULT ACTIVE PRN (02:15)
[2017-08-27] MEDS ORDERED: VANCOMYCIN INJ 2,250 MG in SODIUM CHLORIDE 0.9% 500ML 500 ML IV SCH (02:30)
[2017-08-27] MEDS ORDERED: LEVALBUTEROL/IPRATROPIUM NEB INH SCH (03:00)
[2017-08-27] MEDS: CEFEPIME IV 1,000 MG in SYRINGE 0 ML IV SCH ×3 (03:56→20:55)
[2017-08-27] MEDS: BUDESONIDE 0.5 MG/2 ML VIAL (PULMICORT) INH SCH ×2 (06:55→19:01)
--- NOTE | 2017-08-27 07:06 | DIAGNOSTIC IMAGING REPORT ---
HEAD CT NONCONTRAST CT DOSE: 537.48 mGy.cm HISTORY: Altered mental status. TECHNIQUE: Multiaxial CT images of the head were performed without the use of intravenous contrast. Automated exposure control was utilized for this study. A dose lowering technique was utilized adhering to the principles of ALARA. Comparison: Head CT 07/22/2017. Findings: The paranasal sinuses and mastoid air cells are clear. The calvarium and skull base are intact. There is no mass, hematoma, midline shift, acute infarct. White matter hypodensity is nonspecific but suggestive of microvascular ischemic change. The ventricles and sulci demonstrate mild age-related involutional changes. Impression: No significant change compared to the prior study. No acute intracranial abnormality. Electronically signed by: Willam Reyes M.D. 08/27/2017 7:05 AM Dictated Date/Time: 08/27/2017 7:04 AM
--- NOTE | 2017-08-27 07:09 | DIAGNOSTIC IMAGING REPORT ---
CHEST ONE VIEW PORTABLE CLINICAL HISTORY: 77 years-old Female presenting with Sepsis. TECHNIQUE: Portable upright AP view of the chest was obtained. COMPARISON: 07/22/2017. FINDINGS: Atherosclerosis of aortic arch. Cardiac silhouette normal in size. Patchy vague opacities in the right upper and lower lung. Left lung essentially clear. Trace blunting of the costophrenic angles may suggest trace pleural effusions. No pneumothorax. Degenerative changes of the thoracic spine. Upper abdomen normal. IMPRESSION: 1. Vague patchy opacities in the right lung concerning for pneumonia. The report will be called/faxed according to standard departmental protocol. Electronically signed by: Sincere Reyes M.D. 08/27/2017 7:08 AM Dictated Date/Time: 08/27/2017 7:06 AM
[2017-08-27] MEDS: CLOPIDOGREL BISULFATE 75 MG TAB PO SCH (07:43)
[2017-08-27] MEDS: AMLODIPINE BESYLATE 5 MG TAB PO SCH (07:43)
[2017-08-27] MEDS: ASPIRIN 81 MG ECTAB PO SCH (07:43)
[2017-08-27] MEDS: LISINOPRIL 40 MG TAB PO SCH (07:44)
[2017-08-27] MEDS: CHOLECALCIFEROL 1000 INTER.UNIT TAB PO SCH (07:45)
[2017-08-27] MEDS: RISPERIDONE 3 MG TAB PO SCH (07:45)
[2017-08-27] MEDS: METOPROLOL SUCC 50MG EXT REL TAB PO SCH (07:46)
[2017-08-27] MEDS: INSULIN ASPART 100 UNITS/ML 3 ML PEN SC SCH ×4 (07:55→21:26)
[2017-08-27] MEDS: HEPARIN SOD 5000 UNIT/0.5 ML CARP SQ SCH ×2 (07:56→21:27)
[2017-08-27] MEDS ORDERED: CHOLECALCIFEROL 1000 INTER.UNIT TAB PO SCH (09:00)
[2017-08-27] MEDS ORDERED: VENLAFAXINE HCL XR 150 MG CAPXR PO SCH (09:00)
[2017-08-27] MEDS: VENLAFAXINE HCL XR 75 MG CAPXR PO SCH (09:18)
--- NOTE | 2017-08-27 09:41 | Progress Note ---
Progress Note Date of Service Aug 27, 2017. Progress Note Patient admitted after midnight. Seen and examined this morning. Patient states that she is feeling better. She currently denies any SOB, cough , wheezing, or chest pain. She had presented with weakness but is unsure if she still feels weak as she hasn't really been up yet. The patient denies fevers, chills, sweats, chest pain, palpitations, claudication, cough, wheezing , shortness of breath, nausea, vomiting, abdominal pain, dysuria, hematuria, urinary retention, paralysis, weakness, numbness and tingling. Physical exam pertinent for decreased breath sounds in right side. Pt on 3L currently, does not wear oxygen at home. Alert and oriented x 3. Physical exam otherwise unremarkable. A/P: R HCAP -Admit to telemetry -O2 by protocol. Currently 95% on 3L -Blood cultures pending -D/C vanc -Continue Cefepime IV. Start Levaquin 750 mg IV q48h (renal dosing). Day #1 -Continue Xopenex/Atrovent nebs QIDR and q2h prn SOB/wheezing -Continue Pulmicort BID -Afebrile today Elevated troponin--resolved, likely demand ischemia. Denies CP -Troponin 0.048 on admission -Repeat troponin WNL H/o CVA/TIA, CAD, HTN--stable -Continue ASA, Plavix, Norvasc 10 mg PO qd, lisinopril 40 mg PO qd, and Toprol XL 50 mg PO qd CKD stage III--stable -Creatinine stable, at baseline DM II--last HgbA1c 08/19/17 was 6.1 -Hold metformin -Lantus 16 units SC qpm -Insulin sliding scale -Check BSGs q ac and qhs Depression, paranoia -Continue Risperdal 3 mg PO qd, Effexor 225 mg PO qd Dispo -Lives at home with daughter -PT/OT evaluate and treat
[2017-08-27 09:59] LABS: HEMATOCRIT 32.7 % (37-47); MEAN CELL VOLUME 82.6 fL (80-100); MEAN CORPUSCULAR HGB CONC 32.7 g/dl (32-36); MEAN PLATELET VOLUME 10.9 fL (7.4-10.4); PLATELET COUNT 170 K/uL (130-400); RED BLOOD COUNT 3.96 M/uL (4.2-5.4); WHITE BLOOD COUNT 19.47 K/uL (4.8-10.8)
[2017-08-27 10:22] LABS: CALCIUM 8.6 mg/dl (8.5-10.1); CKMB/CK RATIO 1.5 (0-3.0); CREATININE 1.2 mg/dl (0.60-1.20); POTASSIUM 3.5 mmol/L (3.5-5.1)
[2017-08-27] MEDS ORDERED: PERFLUTREN LIPID MICROSPHERE (DEFINITY) IV ONE (14:42)
--- NOTE | 2017-08-27 16:16 | ECHOCARDIOGRAM REPORT ---
*NOTICE TO RECEIVING [facility] This information is strictly Confidential and protected under [place] law. [place] law prohibits you from making any further disclosure of this information unless further disclosure is expressly permitted by the written consent of the person to whom it pertains or is authorized by law. A general authorization for the release of medical or other information is not sufficient for this purpose. Hospital accepts no responsibility if the information is made available to any other person, INCLUDING THE PATIENT. Interpretation Summary * Name: SAMANTHA REDDY Study Date: 08/27/2017 02:17 PM BP: 152/72 mmHg * Patient Location: C.2T\S\S242\S\2 HR: 104 * : 1940 (M/d/y) Gender: Female Height: 60 in * Age: 77 yrs Ethnicity: [place] Weight: 202 lb * Ordering Physician: Cyrus Squires * Referring Physician: Self, Referred * Performed By: Barbara Austin RDCS * * Reason For Study: ELEVATED TROPONIN, FOLLOW UP * BSA: 1.9 m2 * -- Conclusions -- * Limited study to evaluate LV function and wall motion. * Left ventricular systolic function is normal. * The left ventricular wall motion is normal. Procedure Details * A contrast injection of Definity was performed to improve assessment of LV function. * Contrast was injected into an intravenous site in the left arm. * One vial of Definity ultrasound contrast was diluted in normal saline to a total volume of 10 ml. A total of '1' ml of solution was administered during imaging. * Lot # [id number] of Definity utilized for procedure. * Expiration date SEP 15. * The attending nurse who injected the contrast agent was LISBET MURPHY RN. * Limited study to evaluate LV function and wall motion. Left Ventricle * Ejection Fraction = 65-70%. * Left ventricular systolic function is normal. * The left ventricular wall motion is normal. * No regional walll motion abnormalities Right Ventricle * The right ventricle is normal in size and function. MMode 2D Measurements and Calculations IVSd 1.2 cm IVSs 1.5 cm LVIDd 4.3 cm LVIDs 2.6 cm LVPWd 1.3 cm LVPWs 2.3 cm IVS/LVPW 0.96 FS 39.9 % EDV(Teich) 82.8 ml ESV(Teich) 24.1 ml EF(Teich) 70.9 % EDV(cubed) 79.2 ml ESV(cubed) 17.2 ml EF(cubed) 78.3 % % IVS thick 25.8 % % LVPW thick 80.7 % LV mass(C)d 194.8 grams LV mass(C)dI 103.9 grams/m\S\2 LV mass(C)s 205.7 grams LV mass(C)sI 109.7 grams/m\S\2 SV(Teich) 58.7 ml SI(Teich) 31.3 ml/m\S\2 SV(cubed) 62.1 ml SI(cubed) 33.1 ml/m\S\2 LVAd ap4 28.2 cm\S\2 LVLd ap4 8.5 cm EDV(MOD-sp4) 77.0 ml EDV(sp4-el) 80.1 ml LVAs ap4 14.0 cm\S\2 LVLs ap4 6.5 cm ESV(MOD-sp4) 26.2 ml ESV(sp4-el) 25.8 ml EF(MOD-sp4) 66.0 % EF(sp4-el) 67.8 % LVAd ap2 28.2 cm\S\2 LVLd ap2 8.1 cm EDV(MOD-sp2) 81.3 ml EDV(sp2-el) 83.4 ml LVAs ap2 14.1 cm\S\2 LVLs ap2 6.4 cm ESV(MOD-sp2) 25.4 ml ESV(sp2-el) 26.3 ml EF(MOD-sp2) 68.8 % EF(sp2-el) 68.5 % LVLd %diff -4.53 % EDV(MOD-bp) 81.0 ml LVLs %diff -10 % ESV(MOD-bp) 25.7 ml EF(MOD-bp) 68.2 % SV(MOD-sp4) 50.9 ml SI(MOD-sp4) 27.1 ml/m\S\2 SV(MOD-sp2) 55.9 ml SI(MOD-sp2) 29.8 ml/m\S\2 SV(MOD-bp) 55.2 ml SI(MOD-bp) 29.5 ml/m\S\2 SV(sp4-el) 54.3 ml SI(sp4-el) 28.9 ml/m\S\2 SV(sp2-el) 57.1 ml SI(sp2-el) 30.5 ml/m\S\2
[2017-08-27 18:26] LABS: CKMB/CK RATIO 1.4 (0-3.0)
[2017-08-27] MEDS ORDERED: VANCOMYCIN INJ 1,250 MG in SODIUM CHLORIDE 0.9% 250ML 250 ML IV SCH (21:00)
[2017-08-27] MEDS: INSULIN GLARGINE SOLOSTAR 100 UNITS/ML 3 ML PEN SC SCH (21:26)
[2017-08-28] VITALS (13 sets, daily range): BP systolic 125–167; BP diastolic 66–80; PULSE 76–97; TEMP 36.5–37.8; O2SAT 90–99
[2017-08-28] MEDS: LEVALBUTEROL 1.25MG/0.5ML NEB INH SCH ×4 (01:38→19:36)
[2017-08-28] MEDS: IPRATROPIUM BROMIDE NEB SOLN 0.02% 2.5 ML VIAL INH SCH ×4 (01:38→19:36)
[2017-08-28] MEDS: CEFEPIME IV 1,000 MG in SYRINGE 0 ML IV SCH ×3 (04:03→20:13)
[2017-08-28] MEDS: BUDESONIDE 0.5 MG/2 ML VIAL (PULMICORT) INH SCH ×2 (07:02→19:36)
[2017-08-28 08:11] LABS: BASO % 0.1 %; BASO ABS # 0.01 K/uL (0-0.2); COMPLETE YES; EOS % 0.8 %; HEMATOCRIT 32.4 % (37-47); IG% 0.5 %; LYMPH % 3.5 %; MEAN CORPUSCULAR HEMOGLOBIN 27.1 pg (25-34); MEAN PLATELET VOLUME 11.5 fL (7.4-10.4); MONO % 4.5 %; NEUT % 90.6 %; PLATELET COUNT 178 K/uL (130-400); RED BLOOD COUNT 3.95 M/uL (4.2-5.4); WHITE BLOOD COUNT 11.44 K/uL (4.8-10.8)
[2017-08-28 08:20] LABS: BUN/CREATININE RATIO 21.3 (10-20); CALCIUM 8.7 mg/dl (8.5-10.1); CREATININE 0.98 mg/dl (0.60-1.20); POTASSIUM 3.7 mmol/L (3.5-5.1)
[2017-08-28] MEDS: METOPROLOL SUCC 50MG EXT REL TAB PO SCH (08:34)
[2017-08-28] MEDS: AMLODIPINE BESYLATE 5 MG TAB PO SCH (08:34)
[2017-08-28] MEDS: CLOPIDOGREL BISULFATE 75 MG TAB PO SCH (08:34)
[2017-08-28] MEDS: ASPIRIN 81 MG ECTAB PO SCH (08:34)
[2017-08-28] MEDS: CHOLECALCIFEROL 1000 INTER.UNIT TAB PO SCH (08:34)
[2017-08-28] MEDS: VENLAFAXINE HCL XR 75 MG CAPXR PO SCH (08:35)
[2017-08-28] MEDS: RISPERIDONE 3 MG TAB PO SCH (08:37)
[2017-08-28] MEDS: LISINOPRIL 40 MG TAB PO SCH (08:37)
[2017-08-28] MEDS: INSULIN ASPART 100 UNITS/ML 3 ML PEN SC SCH ×4 (08:40→21:00)
[2017-08-28] MEDS: HEPARIN SOD 5000 UNIT/0.5 ML CARP SQ SCH ×2 (08:42→21:15)
--- NOTE | 2017-08-28 08:50 | Clinical Documentation Query ---
CLINICAL DOCUMENTATION QUERY QUERY 1 OF 2 A 77-year-old female who is brought to the emergency room after her daughter noticed difficulty with word finding, generalized weakness, headache and shortness of breath that began earlier in the afternoon. In your clinical opinion is this patient being managed for: ( ) Sepsis in the setting of pneumonia and treated with IV Zosyn, Levofloxacin and Vancomycin ( ) Not Agree ( ) Other explanation of clinical findings (Please Explain) ( ) Unable to determine (Please Define) ( ) Need to Discuss The medical record reflects the following clinical findings, treatment, and risk factors. Clinical Indicators: WBC 24.20, lactic acid 2.10, temp 38.2, tachycardia Treatment: IV Zosyn, Levofloxacin, Vancomycin, O2, telemetry Risk Factors: Age, pneumonia QUERY 2 OF 2 In your clinical opinion is this patient being managed for: ( ) Hyponatremia ( ) Not Agree ( ) Other explanation of clinical findings (Please Explain) ( ) Unable to determine (Please Define) ( ) Need to Discuss The medical record reflects the following clinical findings, treatment, and risk factors. Clinical Indicators: Na 125, Treatment: IV hydration, telemetry Risk Factors: Age, pneumonia Please clarify and document your clinical opinion in the progress notes and discharge summary. Terms such as "probable", "suspected", "likely", "questionable", "possible", or "still to be ruled out" are acceptable. IF IN AGREEMENT, YOU MUST DOCUMENT ABOVE DIAGNOSTIC STATEMENT IN DAILY PROGRESS NOTES AND DISCHARGE SUMMARY. This document is not part of the patient's record. Thank You, Nanette Shafer RN [phone] You, Nanette Shafer RN [phone]
[2017-08-28 10:14] LABS: INFLUENZA A PCR Neg for Influ A (NEG); INFLUENZA B PCR Neg for Influ B (NEG)
--- NOTE | 2017-08-28 13:38 | Hospitalist Progress Note ---
Hospitalist Progress Note Date of Service Aug 28, 2017. (Hedy Stephenson CRNP) Subjective Pt evaluation today including: conversation w/ patient, physical exam, chart review, lab review, review of inpatient medication list Ms. Alfaro feels better this morning. Her sob has improved, no cough. ROS Constitutional: no chills, aches, sweats or fever Respiratory: see HPI Cardiac: no chest pain, palpitations, edema, orthopnea or lightheadedness GI: no abdominal pain, nausea, vomiting, diarrhea or constipation : no dysuria or hesitancy Extremities: no joint pain or weakness Skin: no rash (Hedy Stephenson CRNP) Medications Medications Administered Medications (Trade) Dose Ordered Sig/Jakub Route Start Time Stop Time Status Last Admin Dose Admin Sodium Chloride 500 ml @ 999 mls/hr Q31M STAT IV 08/27/17 00:08 08/27/17 00:38 DC 08/27/17 00:12 999 MLS/HR Acetaminophen (Tylenol Tab) 1,000 mg NOW STAT PO 08/27/17 00:24 08/27/17 00:26 DC 08/27/17 00:34 1,000 MG Piperacillin Sod/ Tazobactam Sod (Zosyn Iv) 4.5 gm NOW STAT IV 08/27/17 00:24 08/27/17 00:26 DC 08/27/17 00:41 4.5 GM Levofloxacin (Levaquin / D5W) 750 mg NOW ONCE IV 08/27/17 00:30 08/27/17 00:31 DC 08/27/17 00:36 750 MG Heparin Sodium (Porcine) (Heparin Sq 5000 Unit/0.5ml) 5,000 unit Q12 SQ 08/27/17 09:00 09/26/17 08:59 08/28/17 08:42 5,000 UNIT Acetaminophen (Tylenol Tab) 650 mg Q4H PRN PO 08/27/17 01:30 09/26/17 01:29 08/27/17 19:03 650 MG Amlodipine Besylate (Norvasc Tab) 10 mg QAM PO 08/27/17 09:00 09/26/17 08:59 08/28/17 08:34 10 MG Aspirin (Ecotrin Tab) 81 mg QAM PO 08/27/17 09:00 09/26/17 08:59 08/28/17 08:34 81 MG Clopidogrel Bisulfate (plAVix TAB) 75 mg DAILY PO 08/27/17 09:00 09/26/17 08:59 08/28/17 08:34 75 MG Insulin Glargine (Lantus Solostar Pen) 16 units QPM SC 08/27/17 21:00 09/26/17 20:59 08/27/17 21:26 16 UNITS Lisinopril (Zestril Tab) 40 mg QAM PO 08/27/17 09:00 09/26/17 08:59 08/28/17 08:37 40 MG Metoprolol Succinate (Toprol Xl Tab) 50 mg QAM PO 08/27/17 09:00 09/26/17 08:59 08/28/17 08:34 50 MG Risperidone (Risperdal Tab) 3 mg QAM PO 08/27/17 09:00 09/26/17 08:59 08/28/17 08:37 3 MG Cholecalciferol (Vitamin D Tab) 3,000 inter.unit QAM PO 08/27/17 09:00 09/26/17 08:59 08/28/17 08:34 3,000 INTER.UNIT Insulin Aspart (novoLOG ASPART) SLIDING SCALE If C... ACHS SC 08/27/17 07:00 09/26/17 06:59 08/28/17 12:38 5 UNITS Ipratropium [place] (Atrovent 0.02% 0.5MG/2.5ML Neb) 0.5 mg Q6R INH 08/27/17 03:00 09/26/17 02:59 08/28/17 07:02 0.5 MG Levalbuterol (Xopenex 1.25MG/ 0.5ML Neb) 1.25 mg Q6R INH 08/27/17 03:00 09/26/17 02:59 08/28/17 07:02 1.25 MG Budesonide (Pulmicort Respules 0.5MG/ 2ML Neb Soln) 0.5 mg BIDR INH 08/27/17 08:00 09/26/17 07:59 08/28/17 07:02 0.5 MG Vancomycin HCl 2250 mg/Sodium Chloride 545 ml @ 200 mls/hr TODAY@0230 IV 08/27/17 02:30 08/27/17 05:14 DC 08/27/17 02:39 200 MLS/HR Cefepime HCl 1000 mg/Syringe 11 ml @ 5.5 mls/min Q8H IV 08/27/17 04:00 09/03/17 03:59 08/28/17 12:31 5.5 MLS/MIN Venlafaxine HCl (effeXOR EXTENDED REL CAP) 225 mg QAM PO 08/27/17 09:00 09/26/17 08:59 08/28/17 08:35 225 MG Perflutren Lipid Microsphere (Definity) 2 ml ONE ONCE IV 08/27/17 14:42 08/27/17 14:43 DC 08/27/17 14:42 2 ML (Hedy Stephenson CRNP) Objective Vital Signs Date Time Temp Pulse Resp B/P (MAP) Pulse Ox O2 Delivery O2 Flow Rate FiO2 08/28/17 12:39 36.5 76 18 148/66 (93) 99 08/28/17 08:19 37.6 76 18 149/74 (99) 95 08/28/17 08:00 91 Nasal Cannula 2.0 08/28/17 07:02 97 20 91 Nasal Cannula 3.0 08/28/17 04:00 Nasal Cannula 2.0 08/28/17 04:00 37.8 94 20 156/74 (101) 93 Nasal Cannula 2.0 08/28/17 01:38 90 20 94 Nasal Cannula 3.0 08/28/17 01:00 37.7 90 18 148/79 (102) 97 Nasal Cannula 2.0 08/28/17 00:00 Nasal Cannula 2.0 08/27/17 22:37 94 Nasal Cannula 3.0 08/27/17 20:31 38.2 98 16 164/73 (103) 94 Nasal Cannula 3.0 08/27/17 19:01 98 20 94 Nasal Cannula 3.0 08/27/17 15:36 88 95 08/27/17 15:17 36.7 87 18 168/70 (102) 95 Nasal Cannula 3.0 08/27/17 15:15 93 Nasal Cannula 2.0 (Hedy Stephenson CRNP) Physical Exam Notes: General: no distress Eyes: normal inspection, PERLL Respiratory: chest non tender, clear to auscultation, normal breath sounds, no respiratory distress, no accessory muscle use Cardiac: regular rate and rhythm, no rub or gallop, no murmur, no edema, no jvd GI/: active bowel sounds, no abd pain or tenderness, soft, non distended Extremities: normal range of motion, normal strength, non tender Neuro/Psych: alert and oriented x 3, normal mood and affect Skin: normal color, dry (Hedy Stephenson, MICHELLE) Laboratory Results Last 24 Hours Test 08/27/17 16:01 08/27/17 17:41 08/27/17 20:13 08/28/17 07:08 Bedside Glucose 135 mg/dl 227 mg/dl Total Creatine Kinase 44 U/L Creatine Kinase MB 0.6 ng/ml Creatine Kinase MB Ratio 1.4 Troponin I 0.030 ng/ml White Blood Count 11.44 K/uL Red Blood Count 3.95 M/uL Hemoglobin 10.7 g/dL Hematocrit 32.4 % Mean Corpuscular Volume 82.0 fL Mean Corpuscular Hemoglobin 27.1 pg Mean Corpuscular Hemoglobin Concent 33.0 g/dl Platelet Count 178 K/uL Mean Platelet Volume 11.5 fL Neutrophils (%) (Auto) 90.6 % Lymphocytes (%) (Auto) 3.5 % Monocytes (%) (Auto) 4.5 % Eosinophils (%) (Auto) 0.8 % Basophils (%) (Auto) 0.1 % Neutrophils # (Auto) 10.36 K/uL Lymphocytes # (Auto) 0.40 K/uL Monocytes # (Auto) 0.52 K/uL Eosinophils # (Auto) 0.09 K/uL Basophils # (Auto) 0.01 K/uL RDW Standard Deviation 48.7 fL RDW Coefficient of Variation 16.1 % Immature Granulocyte % (Auto) 0.5 % Immature Granulocyte # (Auto) 0.06 K/uL Sodium Level 131 mmol/L Potassium Level 3.7 mmol/L Chloride Level 96 mmol/L Carbon Dioxide Level 28 mmol/L Anion Gap 7.0 mmol/L Blood Urea Nitrogen 21 mg/dl Creatinine 0.98 mg/dl Est Creatinine Clear Calc Drug Dose 46.8 ml/min Estimated GFR () 63.6 Estimated GFR (Non- 54.9 BUN/Creatinine Ratio 21.3 Random Glucose 122 mg/dl Calcium Level 8.7 mg/dl Magnesium Level 2.0 mg/dl Chemistry Specimen Hemolysis Test 08/28/17 07:12 08/28/17 09:15 08/28/17 11:45 Bedside Glucose 128 mg/dl 162 mg/dl Influenza Type A (RT-PCR) Neg for Influ A Influenza Type B (RT-PCR) Neg for Influ B (Hedy Stephenson, MICHELLE) Assessment and Plan Ms. Alfaro is a 77 year old woman here for right upper and lower lobe pneumonia. Right upper and lower lung pneumonia -O2 by protocol. Currently 95% on 2L -Blood cultures 08/26 - no growth -Continue Cefepime and Levaquin -Continue Xopenex/Atrovent nebs -Continue Pulmicort BID - Flu negative Elevated troponin--resolved, likely demand ischemia. -Troponin 0.048 on admission, repeat trops wnl H/o CVA/TIA, CAD, HTN--stable -Continue ASA, Plavix, Norvasc 10 mg PO qd, lisinopril 40 mg PO qd, and Toprol XL 50 mg PO qd - no focal neuro deficits on exam today CKD stage III -Creatinine stable, at baseline DM II--last HgbA1c 08/19/17 was 6.1 - Hold metformin - Lantus, ss - BSGs AC&HS Depression, paranoia -Continue Risperdal 3 mg PO qd, Effexor 225 mg PO qd DVT prophylaxis - heparin full code (Hedy Stephenson CRNP) Attending Attestation: Pt seen/examined, chart reviewed, care plan d/w MICHELLE Stephenson. I agree w/ the francois components of her documentation. Pt "feeling better." Minimal cough. Fever subsiding. Better appetite. Stools still slightly loose. VSS Tm >38 gen - NAD neck - no JVD mouth - MM dry heart - RRR lungs - mild rales, RUL and right base; minimal left basilar rales no wheeze abd - soft, obese ext - no edema Na 131 Cr 0.9 A/P: 1. RUL/RLL pneumonia, likely gram negative in etiology - cont same IV abx. 2. sepsis 2nd to #1 - improving. 3. hyponatremia - appears volume depleted; check urine osm, urine Na to be complete but anticipate giving a little more IVF. 4. acute kidney injury - improved. PT, OT consults Erik Bailey MD (Erik Bailey MD)
[2017-08-28] MEDS ORDERED: SODIUM CHLORIDE 0.9% 1000ML 1,000 ML IV SCH (18:30)
[2017-08-28] MEDS: INSULIN GLARGINE SOLOSTAR 100 UNITS/ML 3 ML PEN SC SCH (21:14)
[2017-08-29] VITALS (14 sets, daily range): BP systolic 156–194; BP diastolic 66–77; PULSE 81–99; TEMP 36.6–37.1; O2SAT 87–98
[2017-08-29] MEDS ORDERED: LEVOFLOXACIN / D5W 750 MG in PREMIXED IN D5W 150 ML IV SCH
[2017-08-29] MEDS: LEVALBUTEROL 1.25MG/0.5ML NEB INH SCH ×4 (01:46→19:10)
[2017-08-29] MEDS: IPRATROPIUM BROMIDE NEB SOLN 0.02% 2.5 ML VIAL INH SCH ×4 (01:46→19:10)
[2017-08-29] MEDS: CEFEPIME IV 1,000 MG in SYRINGE 0 ML IV SCH ×3 (04:10→20:57)
[2017-08-29 07:31] LABS: BUN/CREATININE RATIO 21.5 (10-20); CALCIUM 8.4 mg/dl (8.5-10.1); CREATININE 0.84 mg/dl (0.60-1.20); POTASSIUM 3.8 mmol/L (3.5-5.1)
[2017-08-29] MEDS: BUDESONIDE 0.5 MG/2 ML VIAL (PULMICORT) INH SCH ×2 (07:37→19:10)
[2017-08-29] MEDS ORDERED: VANCOMYCIN TROUGH ONE (08:30)
[2017-08-29] MEDS: AMLODIPINE BESYLATE 5 MG TAB PO SCH (08:57)
[2017-08-29] MEDS: CHOLECALCIFEROL 1000 INTER.UNIT TAB PO SCH (08:58)
[2017-08-29] MEDS: ASPIRIN 81 MG ECTAB PO SCH (08:58)
[2017-08-29] MEDS: METOPROLOL SUCC 50MG EXT REL TAB PO SCH (08:58)
[2017-08-29] MEDS: CLOPIDOGREL BISULFATE 75 MG TAB PO SCH (08:58)
[2017-08-29] MEDS: VENLAFAXINE HCL XR 75 MG CAPXR PO SCH (08:58)
[2017-08-29] MEDS: LISINOPRIL 40 MG TAB PO SCH (08:59)
[2017-08-29] MEDS: HEPARIN SOD 5000 UNIT/0.5 ML CARP SQ SCH ×2 (09:03→20:56)
[2017-08-29] MEDS: INSULIN ASPART 100 UNITS/ML 3 ML PEN SC SCH ×4 (09:03→20:55)
--- NOTE | 2017-08-29 09:22 | Clinical Documentation Query ---
CLINICAL VALIDATION The Hospitalist Progress Note dated 08/28/17 indicates the patient is/has been treated for RAIN. Acute Kidney Injury is defined as any of the following: o Increase in SCr by (>/=) 0.3 mg/dl within 48 hours; or o Increase in SCr to (>/=)1.5 times baseline, which is known or presumed to have occurred within the prior 7 days; or o Urine volume <0.5 ml/kg/h for 6 hours. Please document indications and treatment for support of an RAIN diagnosis. Thank you. Please clarify and document your clinical opinion in the progress notes and discharge summary. Terms such as "probable", "suspected", "likely", "questionable", "possible", or "still to be ruled out" are acceptable. IF IN AGREEMENT, YOU MUST DOCUMENT ABOVE DIAGNOSTIC STATEMENT IN DAILY PROGRESS NOTES AND DISCHARGE SUMMARY. This document is not part of the patient's record. Thank You, Nanette Shafer RN [phone]
--- NOTE | 2017-08-29 10:28 | Hospitalist Progress Note ---
Hospitalist Progress Note Date of Service Aug 29, 2017. (Hedy Stephenson ., MICHELLE) Subjective Pt evaluation today including: conversation w/ patient, physical exam, chart review, lab review, review of inpatient medication list Voiding: no voiding problems Ms. Alfaro says that she is feeling 90% better and would like to go home. She continues to be sob especially with exertion. She has a mild cough, no sputum. Per nursing, she desats into the mid 80s when off supplemental O2. ROS Constitutional: no chills, aches, sweats or fever Respiratory: See HPI Cardiac: no chest pain, palpitations, edema, orthopnea or lightheadedness GI: no abdominal pain, nausea, vomiting, diarrhea or constipation : no dysuria or hesitancy Extremities: no joint pain or weakness Skin: no rash All Other Systems: Reviewed and Negative (Hedy Stephenson CRNP) Medications Medications Administered Medications (Trade) Dose Ordered Sig/Jakub Route Start Time Stop Time Status Last Admin Dose Admin Sodium Chloride 500 ml @ 999 mls/hr Q31M STAT IV 08/27/17 00:08 08/27/17 00:38 DC 08/27/17 00:12 999 MLS/HR Acetaminophen (Tylenol Tab) 1,000 mg NOW STAT PO 08/27/17 00:24 08/27/17 00:26 DC 08/27/17 00:34 1,000 MG Piperacillin Sod/ Tazobactam Sod (Zosyn Iv) 4.5 gm NOW STAT IV 08/27/17 00:24 08/27/17 00:26 DC 08/27/17 00:41 4.5 GM Levofloxacin (Levaquin / D5W) 750 mg NOW ONCE IV 08/27/17 00:30 08/27/17 00:31 DC 08/27/17 00:36 750 MG Heparin Sodium (Porcine) (Heparin Sq 5000 Unit/0.5ml) 5,000 unit Q12 SQ 08/27/17 09:00 09/26/17 08:59 08/29/17 09:03 5,000 UNIT Acetaminophen (Tylenol Tab) 650 mg Q4H PRN PO 08/27/17 01:30 09/26/17 01:29 08/27/17 19:03 650 MG Amlodipine Besylate (Norvasc Tab) 10 mg QAM PO 08/27/17 09:00 09/26/17 08:59 08/29/17 08:57 10 MG Aspirin (Ecotrin Tab) 81 mg QAM PO 08/27/17 09:00 09/26/17 08:59 08/29/17 08:58 81 MG Clopidogrel Bisulfate (plAVix TAB) 75 mg DAILY PO 08/27/17 09:00 09/26/17 08:59 08/29/17 08:58 75 MG Insulin Glargine (Lantus Solostar Pen) 16 units QPM SC 08/27/17 21:00 09/26/17 20:59 08/28/17 21:14 16 UNITS Lisinopril (Zestril Tab) 40 mg QAM PO 08/27/17 09:00 09/26/17 08:59 08/29/17 08:59 40 MG Metoprolol Succinate (Toprol Xl Tab) 50 mg QAM PO 08/27/17 09:00 09/26/17 08:59 08/29/17 08:58 50 MG Risperidone (Risperdal Tab) 3 mg QAM PO 08/27/17 09:00 08/28/17 20:35 DC 08/28/17 08:37 3 MG Cholecalciferol (Vitamin D Tab) 3,000 inter.unit QAM PO 08/27/17 09:00 09/26/17 08:59 08/29/17 08:58 3,000 INTER.UNIT Insulin Aspart (novoLOG ASPART) SLIDING SCALE If C... ACHS LA 08/27/17 07:00 09/26/17 06:59 08/29/17 09:03 4 UNITS Ipratropium [place] (Atrovent 0.02% 0.5MG/2.5ML Neb) 0.5 mg Q6R INH 08/27/17 03:00 09/26/17 02:59 08/29/17 07:37 0.5 MG Levalbuterol (Xopenex 1.25MG/ 0.5ML Neb) 1.25 mg Q6R INH 08/27/17 03:00 09/26/17 02:59 08/29/17 07:37 1.25 MG Budesonide (Pulmicort Respules 0.5MG/ 2ML Neb Soln) 0.5 mg BIDR INH 08/27/17 08:00 09/26/17 07:59 08/29/17 07:37 0.5 MG Vancomycin HCl 2250 mg/Sodium Chloride 545 ml @ 200 mls/hr TODAY@0230 IV 08/27/17 02:30 08/27/17 05:14 DC 08/27/17 02:39 200 MLS/HR Cefepime HCl 1000 mg/Syringe 11 ml @ 5.5 mls/min Q8H IV 08/27/17 04:00 09/03/17 03:59 08/29/17 04:10 5.5 MLS/MIN Venlafaxine HCl (effeXOR EXTENDED REL CAP) 225 mg QAM PO 08/27/17 09:00 09/26/17 08:59 08/29/17 08:58 225 MG Levofloxacin 750 mg/Prmx 150 ml @ 100 mls/hr Q48H IV 08/29/17 00:00 09/05/17 00:00 08/28/17 23:30 100 MLS/HR Perflutren Lipid Microsphere (Definity) 2 ml ONE ONCE IV 08/27/17 14:42 08/27/17 14:43 DC 08/27/17 14:42 2 ML Sodium Chloride 1,000 ml @ 75 mls/hr [id number] IV 08/28/17 18:30 08/29/17 07:49 DC 08/28/17 18:26 75 MLS/HR (Hedy Stephenson, MICHELLE) Objective Vital Signs Date Time Temp Pulse Resp B/P (MAP) Pulse Ox O2 Delivery O2 Flow Rate FiO2 08/29/17 09:39 87 Room Air 08/29/17 08:00 36.8 93 20 156/73 (100) 94 Nasal Cannula 1.5 Humidified Oxygen 08/29/17 07:37 88 20 90 Nasal Cannula 2.0 08/29/17 04:00 Nasal Cannula 2.0 08/29/17 03:35 37.1 88 17 169/66 (100) 91 Nasal Cannula 2.0 08/29/17 01:49 84 20 98 Nasal Cannula 2.0 08/28/17 23:59 Nasal Cannula 2.0 08/28/17 23:38 37.7 97 23 132/80 (97) 90 Room Air 08/28/17 20:00 Nasal Cannula 2.0 08/28/17 19:39 91 20 93 Nasal Cannula 2.0 08/28/17 19:13 37.2 93 18 167/77 (107) 93 Nasal Cannula 1.0 08/28/17 16:44 Nasal Cannula 2.0 08/28/17 16:00 37.3 87 18 155/75 (101) 94 Nasal Cannula 1.0 08/28/17 14:47 86 20 93 Nasal Cannula 2.0 08/28/17 13:57 76 99 08/28/17 12:39 36.5 76 18 148/66 (93) 99 08/28/17 12:00 Nasal Cannula 2.0 (Hedy Stephenson CRNP) Physical Exam Notes: General: no distress Eyes: normal inspection, PERLL Respiratory: chest non tender, crackles left lung upper and lower lobes, right lung cta, no respiratory distress, no accessory muscle use Cardiac: regular rate and rhythm, no rub or gallop, no murmur, no edema, no jvd GI/: active bowel sounds, no abd pain or tenderness, soft, non distended Extremities: normal range of motion, normal strength, non tender Neuro/Psych: alert and oriented x 3, normal mood and affect Skin: normal color, dry (Hedy Stephenson CRNP) Laboratory Results Last 24 Hours Test 08/28/17 11:45 08/28/17 16:19 08/28/17 17:15 08/28/17 20:46 Bedside Glucose 162 mg/dl 124 mg/dl 148 mg/dl Urine Osmolality 238 mOms/kg Urine Random Sodium 10 mEq/L Test 08/29/17 06:36 08/29/17 06:52 Sodium Level 132 mmol/L Potassium Level 3.8 mmol/L Chloride Level 99 mmol/L Carbon Dioxide Level 30 mmol/L Anion Gap 3.0 mmol/L Blood Urea Nitrogen 18 mg/dl Creatinine 0.84 mg/dl Est Creatinine Clear Calc Drug Dose 54.7 ml/min Estimated GFR () 76.6 Estimated GFR (Non- 66.1 BUN/Creatinine Ratio 21.5 Random Glucose 124 mg/dl Calcium Level 8.4 mg/dl Bedside Glucose 119 mg/dl (Hedy Stephenson CRNP) Assessment and Plan Ms. Alfaro is a 77 year old woman here for right upper and lower lobe pneumonia. Right upper and lower lung pneumonia/encephalopathy due to infection -O2 by protocol. Currently 95% on 2L - desats to mid 80s on RA -Blood cultures 08/26 - no growth -Continue Cefepime and Levaquin -Continue Xopenex/Atrovent nebs -Continue Pulmicort BID - Flu negative - encephalopathy resolved Elevated troponin--resolved, likely demand ischemia. -Troponin 0.048 on admission, repeat trops wnl H/o CVA/TIA, CAD, HTN--stable -Continue ASA, Plavix,ivan htn medications CKD stage III -Creatinine stable, at baseline Hyponatremia - Sodium continues to trend up - 132 today DM II--last HgbA1c 08/19/17 was 6.1 - Hold metformin - Lantus, ss - BSGs AC&HS Depression, paranoia -Continue Risperdal 3 mg PO qd, Effexor 225 mg PO qd Transfer to med/surg DVT prophylaxis - heparin full code (Hedy Stephenson, MICHELLE) Attending Attestation: Pt seen/examined, chart reviewed, care plan d/w MICHELLE Stephenson. I agree w/ the francois components of her documentation. Pt asks about discharge. "I feel good." No dyspnea at rest or w/ exertion. Minimal cough. Good appetite. VSS afebrile gen - NAD neck - no JVD mouth - MM more moist today heart - RRR lungs - mild rales b/l, good airation, no wheeze today abd - soft, obese ext - no edema Na 132 A/P: 1. RUL/RLL pneumonia, likely gram negative in etiology - cont same IV abx. Day #3 of abx. Would complete at least 5 days of IV therapy, then transition to monotherapy with levaquin. 2. sepsis 2nd to #1 - resolved. 3. hyponatremia - has improved with IVF and oral hydration. Urine Na was 10 c/ w salt depletion. BMP am. 4. acute kidney injury - resolved. PT, OT consults to determine if safe for d/c home cxr in AM Erik Bailey MD (Erik Bailey MD)
[2017-08-29] MEDS: INSULIN GLARGINE SOLOSTAR 100 UNITS/ML 3 ML PEN SC SCH (20:56)
[2017-08-29] MEDS: RISPERIDONE 3 MG TAB PO SCH (20:58)
[2017-08-30] VITALS (7 sets, daily range): BP systolic 170–179; BP diastolic 73–81; PULSE 74–87; TEMP 36.3–37; O2SAT 92–95
[2017-08-30] MEDS: LEVALBUTEROL 1.25MG/0.5ML NEB INH SCH ×4 (01:33→19:22)
[2017-08-30] MEDS: IPRATROPIUM BROMIDE NEB SOLN 0.02% 2.5 ML VIAL INH SCH ×4 (01:33→19:22)
[2017-08-30] MEDS: CEFEPIME IV 1,000 MG in SYRINGE 0 ML IV SCH ×3 (04:14→20:54)
[2017-08-30] MEDS: BUDESONIDE 0.5 MG/2 ML VIAL (PULMICORT) INH SCH ×2 (07:05→19:22)
[2017-08-30] MEDS: CLOPIDOGREL BISULFATE 75 MG TAB PO SCH (08:41)
[2017-08-30] MEDS: VENLAFAXINE HCL XR 75 MG CAPXR PO SCH (08:41)
[2017-08-30] MEDS: METOPROLOL SUCC 50MG EXT REL TAB PO SCH ×2 (08:41→21:45)
[2017-08-30] MEDS: CHOLECALCIFEROL 1000 INTER.UNIT TAB PO SCH (08:42)
[2017-08-30] MEDS: ASPIRIN 81 MG ECTAB PO SCH (08:42)
[2017-08-30] MEDS: AMLODIPINE BESYLATE 5 MG TAB PO SCH (08:42)
[2017-08-30] MEDS: LISINOPRIL 40 MG TAB PO SCH (08:43)
[2017-08-30] MEDS: INSULIN ASPART 100 UNITS/ML 3 ML PEN SC SCH ×4 (08:50→20:49)
[2017-08-30 09:09] LABS: BUN/CREATININE RATIO 17.9 (10-20); CALCIUM 9.1 mg/dl (8.5-10.1); CREATININE 0.89 mg/dl (0.60-1.20); POTASSIUM 4.1 mmol/L (3.5-5.1)
--- NOTE | 2017-08-30 09:27 | DIAGNOSTIC IMAGING REPORT ---
CHEST 2 VIEWS ROUTINE HISTORY: 77 years-old Female recent pneumonia, interval change follow-up study in a patient with pneumonia COMPARISON: Chest radiographs 08/26/2017 TECHNIQUE: PA and lateral views of the chest FINDINGS: Cardiac silhouette is mildly enlarged, unchanged. There is no pneumothorax. Mild blunting of the costophrenic angles suggests effusions. No overt pulmonary edema. No lobar airspace consolidations of the left lung. There are progressive alveolar opacities of the right upper lobe with unchanged alveolar opacities of the right lower lobe. Bones of the chest appear grossly intact. IMPRESSION: 1. Progressive airspace consolidation of the right upper lobe with unchanged alveolar opacities of the right lower lobe suggesting pneumonia. Follow-up recommended. 2. Mild cardiomegaly without overt pulmonary edema. 3. Trace bilateral pleural effusions. The above report was generated using voice recognition software. It may contain grammatical, syntax or spelling errors. Electronically signed by: Silver Childress M.D. 08/30/2017 9:26 AM Dictated Date/Time: 08/30/2017 9:24 AM
[2017-08-30] MEDS: HEPARIN SOD 5000 UNIT/0.5 ML CARP SQ SCH ×2 (10:36→20:54)
--- NOTE | 2017-08-30 20:18 | Progress Note ---
Subjective Date of Service: Aug 30, 2017. Subjective Pt evaluation today including: conversation w/ patient, conversation w/ family (daughter, grand-daughter at bedside), physical exam, chart review, lab review, review of studies (cxr), review of inpatient medication list Pain: none PO Intake: improved/normal Voiding: no voiding problems feels very good/improved minimal cough no sputum denies dyspnea asks about discharge Problem List Medical Problems: (1) Hyponatremia Status: Acute (2) Hypoxia Status: Acute (3) Pneumonia involving right lung Status: Acute (4) Sepsis Status: Acute Review of Systems Constitutional: No fever, No chills Respiratory: No shortness of breath, No dyspnea on exertion Cardiac: No chest pain Abdomen: No pain, No diarrhea Objective Vital Signs Date Time Temp Pulse Resp B/P (MAP) Pulse Ox O2 Delivery O2 Flow Rate FiO2 08/30/17 19:22 81 18 95 Nasal Cannula 2.0 08/30/17 16:00 Room Air 90 08/30/17 14:57 36.4 76 18 175/73 (107) 93 2.0 08/30/17 08:30 Room Air 2.0 08/30/17 07:55 37.0 87 18 174/81 (112) 92 Room Air 08/30/17 07:05 83 18 92 Nasal Cannula 2.0 08/30/17 01:35 82 18 93 Nasal Cannula 2.0 08/30/17 00:00 Nasal Cannula 2.0 08/29/17 23:36 93 166/74 (104) 08/29/17 22:54 37.0 99 20 194/73 (113) 91 Nasal Cannula 2.0 Physical Exam General Appearance: no apparent distress, + pertinent finding (looks well ) ENT: pharynx normal Neck: no JVD Respiratory/Chest: no respiratory distress, no accessory muscle use, + decreased breath sounds (right base), + rales (minimal, right anterior chest) Cardiovascular: regular rate, rhythm, no gallop, no JVD, no murmur Abdomen: normal bowel sounds, non tender, soft, no organomegaly Extremities: no pedal edema Laboratory Results Last 24 Hours Test 08/29/17 20:32 08/30/17 07:56 08/30/17 08:18 08/30/17 11:58 Bedside Glucose 144 mg/dl 133 mg/dl 160 mg/dl Sodium Level 133 mmol/L Potassium Level 4.1 mmol/L Chloride Level 98 mmol/L Carbon Dioxide Level 31 mmol/L Anion Gap 4.0 mmol/L Blood Urea Nitrogen 16 mg/dl Creatinine 0.89 mg/dl Est Creatinine Clear Calc Drug Dose 51.6 ml/min Estimated GFR () 71.4 Estimated GFR (Non- 61.6 BUN/Creatinine Ratio 17.9 Random Glucose 144 mg/dl Calcium Level 9.1 mg/dl Test 08/30/17 17:00 08/30/17 20:03 Bedside Glucose 114 mg/dl 123 mg/dl Assessment and Plan 77yo female: 1. RUL/RLL pneumonia, likely gram negative in etiology - cont same IV abx. Day #4 of abx. Would complete at least 5 days of IV therapy, possibly up to 7, in light of significant lobar distribution on today's chest x-ray. With that said she has done quite well with normalization of wbc count, no fever in several days, and good appetite. reasonable to make the levaquin oral but cont cefepime. MRSA CAR JOCKEY swab checked and was negative; defer on MRSA coverage for now. 2. sepsis 2nd to #1 - resolved. 3. hyponatremia - continues to improve; 133 today; BMP in am. 4. acute kidney injury - resolved. 5. T2DM - controlled. 6. +troponin - likely myocardial demand ischemia in setting of #1/#2 above. 7. HTN - uncontrolled - increase metoprolol to BID dosing. Cont other meds as is. 8. DVT proph - heparin. family updated ambulate, incentive paco, wean O2 as tolerated PT, OT have cleared her for home Continued [facility] stay due to: multiple IV medications needed Discharge planning: home
[2017-08-30] MEDS: RISPERIDONE 3 MG TAB PO SCH (20:48)
[2017-08-30] MEDS: INSULIN GLARGINE SOLOSTAR 100 UNITS/ML 3 ML PEN SC SCH (20:53)
[2017-08-31] VITALS (9 sets, daily range): BP systolic 157–178; BP diastolic 68–73; PULSE 75–86; TEMP 36.4; O2SAT 84–97
[2017-08-31] MEDS: LEVALBUTEROL 1.25MG/0.5ML NEB INH SCH ×4 (01:29→19:32)
[2017-08-31] MEDS: IPRATROPIUM BROMIDE NEB SOLN 0.02% 2.5 ML VIAL INH SCH ×4 (01:29→19:32)
[2017-08-31] MEDS: CEFEPIME IV 1,000 MG in SYRINGE 0 ML IV SCH ×3 (03:53→20:42)
[2017-08-31 06:42] LABS: HEMATOCRIT 34.9 % (37-47); MEAN CELL VOLUME 83.9 fL (80-100); MEAN CORPUSCULAR HEMOGLOBIN 27.6 pg (25-34); MEAN PLATELET VOLUME 10.3 fL (7.4-10.4); PLATELET COUNT 223 K/uL (130-400); RED BLOOD COUNT 4.16 M/uL (4.2-5.4); WHITE BLOOD COUNT 6.45 K/uL (4.8-10.8)
[2017-08-31] MEDS: BUDESONIDE 0.5 MG/2 ML VIAL (PULMICORT) INH SCH ×2 (06:58→19:32)
[2017-08-31 07:21] LABS: CREATININE 0.84 mg/dl (0.60-1.20); POTASSIUM 4.1 mmol/L (3.5-5.1)
[2017-08-31] MEDS: VENLAFAXINE HCL XR 75 MG CAPXR PO SCH (08:41)
[2017-08-31] MEDS: METOPROLOL SUCC 50MG EXT REL TAB PO SCH ×2 (08:41→20:28)
[2017-08-31] MEDS: ASPIRIN 81 MG ECTAB PO SCH (08:42)
[2017-08-31] MEDS: LISINOPRIL 40 MG TAB PO SCH (08:42)
[2017-08-31] MEDS: CLOPIDOGREL BISULFATE 75 MG TAB PO SCH (08:42)
[2017-08-31] MEDS: CHOLECALCIFEROL 1000 INTER.UNIT TAB PO SCH (08:42)
[2017-08-31] MEDS: AMLODIPINE BESYLATE 5 MG TAB PO SCH (08:43)
[2017-08-31] MEDS: INSULIN ASPART 100 UNITS/ML 3 ML PEN SC SCH ×4 (08:51→20:30)
[2017-08-31] MEDS: HEPARIN SOD 5000 UNIT/0.5 ML CARP SQ SCH ×2 (08:51→20:34)
[2017-08-31] MEDS ORDERED: LEVOFLOXACIN 750 MG TAB PO SCH (11:00)
[2017-08-31] MEDS: RISPERIDONE 3 MG TAB PO SCH (20:28)
[2017-08-31] MEDS: INSULIN GLARGINE SOLOSTAR 100 UNITS/ML 3 ML PEN SC SCH (20:33)
[2017-09-01] VITALS (7 sets, daily range): BP systolic 164–180; BP diastolic 85–93; PULSE 74–82; TEMP 36.4–36.9; O2SAT 93–96
[2017-09-01] MEDS: LEVALBUTEROL 1.25MG/0.5ML NEB INH SCH ×3 (01:41→14:24)
[2017-09-01] MEDS: IPRATROPIUM BROMIDE NEB SOLN 0.02% 2.5 ML VIAL INH SCH ×3 (01:41→14:24)
[2017-09-01] MEDS: CEFEPIME IV 1,000 MG in SYRINGE 0 ML IV SCH ×2 (04:16→12:43)
--- NOTE | 2017-09-01 05:09 | Progress Note ---
Subjective Date of Service: late entry for visit Aug 31, 2017. Subjective Pt evaluation today including: conversation w/ patient, physical exam, chart review, lab review Pain: none PO Intake: normal appetite Voiding: no voiding problems feels good no complaints no sob at rest no dyspnea on exertion scant cough no real sputum no chest pain good energy walking hallways w/o issue lowest O2 sat w/ walking about 84% today Problem List Medical Problems: (1) Hyponatremia Status: Acute (2) Hypoxia Status: Acute (3) Pneumonia involving right lung Status: Acute (4) Sepsis Status: Acute Review of Systems Constitutional: No fever Cardiac: No chest pain Abdomen: No pain, No diarrhea Objective Vital Signs Date Time Temp Pulse Resp B/P (MAP) Pulse Ox O2 Delivery O2 Flow Rate FiO2 09/01/17 01:42 82 18 95 Nasal Cannula 2.0 09/01/17 01:06 36.9 79 18 164/86 (112) 94 1.0 09/01/17 00:30 Nasal Cannula 2.0 08/31/17 20:23 75 178/69 (105) 96 Nasal Cannula 2.0 08/31/17 19:33 86 18 95 Nasal Cannula 2.0 08/31/17 16:00 Nasal Cannula 2.0 08/31/17 15:57 36.4 78 20 165/73 (103) 97 Nasal Cannula 2.0 08/31/17 14:14 83 18 97 Nasal Cannula 2.0 08/31/17 09:36 92 Nasal Cannula 2.0 08/31/17 09:35 84 Room Air 08/31/17 07:23 36.4 84 20 157/68 (97) 93 Nasal Cannula 2.0 08/31/17 07:01 80 18 95 Nasal Cannula 2.0 Physical Exam General Appearance: no apparent distress ENT: pharynx normal Neck: no JVD Respiratory/Chest: no respiratory distress, no accessory muscle use, + crackles (minimal rales heard RUL anterior and posterior; otherwise CTA b/l ) Cardiovascular: regular rate, rhythm, no gallop, no murmur Abdomen: normal bowel sounds, non tender, soft, no organomegaly Extremities: no pedal edema Neurologic/Psychiatric: alert, oriented x 3 Laboratory Results Last 24 Hours Test 08/31/17 06:21 08/31/17 07:40 08/31/17 11:23 08/31/17 16:45 White Blood Count 6.45 K/uL Red Blood Count 4.16 M/uL Hemoglobin 11.5 g/dL Hematocrit 34.9 % Mean Corpuscular Volume 83.9 fL Mean Corpuscular Hemoglobin 27.6 pg Mean Corpuscular Hemoglobin Concent 33.0 g/dl RDW Standard Deviation 49.8 fL RDW Coefficient of Variation 16.3 % Platelet Count 223 K/uL Mean Platelet Volume 10.3 fL Sodium Level 134 mmol/L Potassium Level 4.1 mmol/L Chloride Level 98 mmol/L Carbon Dioxide Level 33 mmol/L Anion Gap 3.0 mmol/L Blood Urea Nitrogen 20 mg/dl Creatinine 0.84 mg/dl Est Creatinine Clear Calc Drug Dose 54.7 ml/min Estimated GFR () 76.6 Estimated GFR (Non- 66.1 BUN/Creatinine Ratio 24.0 Random Glucose 124 mg/dl Calcium Level 9.0 mg/dl Bedside Glucose 138 mg/dl 168 mg/dl 81 mg/dl Test 08/31/17 20:21 Bedside Glucose 123 mg/dl Assessment and Plan 77yo female: 1. RUL/RLL pneumonia, likely gram negative in etiology - cont same IV abx. Day #5 of abx. She has done quite well with normalization of wbc count, no fever in several days, and good appetite. 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 2. sepsis 2nd to #1 - resolved. 3. hyponatremia - continues to improve; 134 today. Can stop bmp checks for now. 4. acute kidney injury - resolved. 5. T2DM - controlled. 6. +troponin - likely myocardial demand ischemia in setting of #1/#2 above. 7. HTN - uncontrolled but slowly improving with the metoprolol that was added; adjust as needed. 8. DVT proph - heparin. I believe if we keep her 1 additional day she will not need O2 at discharge PT, OT have cleared her for home possible d/c tomorrow Continued [facility] stay due to: multiple IV medications needed Discharge planning: home
[2017-09-01] MEDS: BUDESONIDE 0.5 MG/2 ML VIAL (PULMICORT) INH SCH (07:10)
[2017-09-01] MEDS: ASPIRIN 81 MG ECTAB PO SCH (08:20)
[2017-09-01] MEDS: AMLODIPINE BESYLATE 5 MG TAB PO SCH (08:20)
[2017-09-01] MEDS: METOPROLOL SUCC 50MG EXT REL TAB PO SCH (08:21)
[2017-09-01] MEDS: CLOPIDOGREL BISULFATE 75 MG TAB PO SCH (08:21)
[2017-09-01] MEDS: VENLAFAXINE HCL XR 75 MG CAPXR PO SCH (08:21)
[2017-09-01] MEDS: LISINOPRIL 40 MG TAB PO SCH (08:21)
[2017-09-01] MEDS: CHOLECALCIFEROL 1000 INTER.UNIT TAB PO SCH (08:21)
[2017-09-01] MEDS: INSULIN ASPART 100 UNITS/ML 3 ML PEN SC SCH ×2 (08:29→12:32)
[2017-09-01] MEDS: HEPARIN SOD 5000 UNIT/0.5 ML CARP SQ SCH (08:30)
[2017-09-01] MEDS ORDERED: LEVOFLOXACIN 750 MG TAB PO SCH (11:00)
[2017-09-01] MEDS ORDERED: PRVHFAIN INH (15:30)
[2017-09-01] MEDS ORDERED: LVQ750 PO (15:30)
[2017-09-01] MEDS ORDERED: PLMINS INH (15:30)
--- NOTE | 2017-09-01 15:34 | Discharge Instructions ---
Discharge Instructions Date of Service Sep 01, 2017. Admission Reason for Admission: Elevated Troponin, Pneumonia Involving Rt Lung Discharge Discharge Diagnosis / Problem: elevated troponin, pneumonia right lung Discharge Goals Goal(s): Decrease discomfort, Improve disease control Activity Recommendations Activity Limitations: resume your previous activity Exercise/Sports Limitations: gradually increase as tolerated . Instructions / Follow-Up Instructions / Follow-Up You will be going home with supplemental oxygen for when you are ambulating or moving around. Your oxygen saturations are good when you are at rest. You can reassess your need for the oxygen with your primary care doctor as your pneumonia heals. Current Hospital Diet Patient's current hospital diet: Diabetes Type 2 Diet, AHA Diet (Heart Healthy) Discharge Diet Recommended Diet: AHA Diet (Heart Healthy), Diabetes Type 2 Diet Procedures Procedures Performed: Chest xray Chest CT Pending Studies Studies pending at discharge: no Laboratory Results Hemoglobin A1c Test 08/19/17 07:22 Range/Units Estimated Average Glucose 128 mg/dl Hemoglobin A1c 6.1 H 4.5-5.6 % Lipid Panel Test 07/23/17 02:23 Range/Units Triglycerides Level 220 H 0-150 mg/dl Cholesterol Level 72 0-200 mg/dl HDL Cholesterol 12 mg/dl Cholesterol/HDL Ratio 6.0 LDL Cholesterol, Calculated 16 mg/dl Medical Emergencies . Who to Call and When: Medical Emergencies: If at any time you feel your situation is an emergency, please call 911 immediately. . Non-Emergent Contact Non-Emergency issues call your: Primary Care Provider Call Non-Emergent contact if: you have a fever, you have any medication questions . Past History Medical & Surgical History: (1) Pneumonia involving right lung (2) Elevated troponin (3) Hypoxia (4) Confusion . "Provider Documentation" section prepared by Hedy Stephenson. . VTE Core Measure Inpt VTE Proph given/why not?: SCD's
[2017-09-01] MEDS ORDERED: METO-217 PO (17:47)
--- NOTE | 2017-09-01 18:32 | Discharge Summary ---
Discharge Summary Date of Service Sep 01, 2017. Discharge Summary Admission Date: Aug 27, 2017 at 01:13 Discharge Date: Sep 01, 2017 Discharge Disposition: Home Principal Diagnosis: RUL/RLL pneumonia, likely gram negative in etiology Problems/Secondary Diagnoses: Acute medical conditions: 1. hyponatremia - resolved 2. acute kidney injury - resolved 3. sepsis 2nd to pneumonia - resolved 4. metabolic encephalopathy 2nd to pneumonia - resolved Chronic medical conditions: (1) Depression Status: Chronic (2) T2DM Status: Chronic (3) HTN (hypertension) Status: Chronic (4) CKD stage 2 Status: Chronic Immunizations: Have You Had Influenza Vaccine: Yes Influenza Vaccine Date: Aug 09, 2011 History of Tetanus Vaccine?: Yes Tetanus Immunization Date: Apr 08, 2007 History of Pneumococcal: Yes Pneumococcal Date: Apr 08, 2012 History of Hepatitis B Vaccine: No Procedures: Head CT Impression: No significant change compared to the prior study. No acute intracranial abnormality. CXR 08/26 IMPRESSION: 1. Vague patchy opacities in the right lung concerning for pneumonia. CXR 08/30 IMPRESSION: 1. Progressive airspace consolidation of the right upper lobe with unchanged alveolar opacities of the right lower lobe suggesting pneumonia. Follow-up recommended. 2. Mild cardiomegaly without overt pulmonary edema. 3. Trace bilateral pleural effusions. Echocardiogram: -- Conclusions -- Limited study to evaluate LV function and wall motion. Left ventricular systolic function is normal. The left ventricular wall motion is normal. Consultations: PT, OT Medication Reconciliation New Medications: Albuterol (Ventolin Hfa) 60 Puffs/5400 Mcg Aers 2 PUFFS INH Q4H for SOB/Wheezing for 14 Days, #1 DOSE Budesonide (Inhalation) (Pulmicort Respules 0.5MG/2ML) 0.5 Mg/2 Ml Leatha 0.5 MG INH BIDR for 14 Days, #1 INHALER 1 Refill Levofloxacin (Levofloxacin) 750 Mg Tab 750 MG PO DAILY@1100 for 3 Days, #3 TAB Changed Medications: Metoprolol Succinate (Toprol Xl) 50 Mg Tabcr 50 MG PO BID, #60 TABS 5 Refills (Changed from: QAM; Refills: ) Continued Medications: Amlodipine Besylate (Norvasc) 10 Mg Tab 10 MG PO QAM, TAB Aspirin (Aspirin Ec) 81 Mg Tab 81 MG PO QAM Cholecalciferol (Vitamin D 1000 Unit) 1,000 Unit Cap 1000 INTER.UNIT PO QAM, CAP Cholecalciferol (Vitamin D3) 2,000 Unit Tab 2000 UNITS PO DAILY for 90 Days, TAB 3 Refills Clopidogrel Bisulfate (Clopidogrel) 75 Mg Tab 75 MG PO DAILY Insulin Aspart (Novolog Flexpen) 100 Units/Ml Inj 6-8 UNITS SQ TIDM Insulin Glargine (Lantus) 100 Unit/Ml Inj 16 UNITS SC QPM, VIAL Lisinopril (Zestril) 40 Mg Tab 40 MG PO QAM Metformin Hcl (Glucophage) 500 Mg Tab 500 MG PO BIDM, TAB Risperidone (Risperdal) 3 Mg Tab 3 MG PO QAM Venlafaxine Hcl (Effexor Xr) 75 Mg Cap 75 MG PO QAM 225MG TOTAL Venlafaxine Hcl (Effexor Extended Rel) 150 Mg Cap 150 MG PO QAM 225MG TOTAL Discharge Exam ROS Constitutional: no chills, aches, sweats or fever Respiratory: no sob,cough, sputum, or wheezing Cardiac: no chest pain, palpitations, edema, orthopnea or lightheadedness GI: no abdominal pain, nausea, vomiting, diarrhea or constipation : no dysuria or hesitancy Extremities: no joint pain or weakness Skin: no rash PE General: no distress Eyes: normal inspection, PERLL Respiratory: chest non tender, clear to auscultation, normal breath sounds, no respiratory distress, no accessory muscle use Cardiac: regular rate and rhythm, no rub or gallop, no murmur, no edema, no jvd GI/: active bowel sounds, no abd pain or tenderness, soft, non distended Extremities: normal range of motion, normal strength, non tender Neuro/Psych: alert and oriented x 3, normal mood and affect Skin: normal color, dry Hospital Course The patient is a 77-year-old female who was brought to the emergency room after her daughter noticed difficulty with word finding, generalized weakness, headache and shortness of breath that began earlier on the day of admission. These symptoms, except for the shortness of breath, were similar to what brought her into the hospital a little over 1 month ago when she was diagnosed with a TIA. Upon obtaining a CXR it was found that the patient had right lobe pneumonia. The encephalopathy resolved shortly after admission. Right upper and lower lung pneumonia/encephalopathy due to infection -Blood cultures showed no growth - given Cefepime and Levaquin - will continue Levaquin for three more days outpatient for a total of 10 days abx treatment - Given Xopenex/Atrovent nebs while inpatient - to home with prn albuterol inhaler - Continue Pulmicort BID for home - Flu negative - encephalopathy resolved shortly after admission - head CT was negative for acute process - to home with supplemental O2 due to desat to mid 80s when ambulating, sats mid 90s on RA when at rest Elevated troponin--resolved, likely demand ischemia. -Troponin 0.048 on admission, repeat trops wnl H/o CVA/TIA, CAD, HTN- -Continued ASA, Plavix, lisinopril, amlodipine - metoprolol changed to 50 mg bid for home as sbp continued to be 150s-180s - will need outpatient follow up with this CKD stage III -Creatinine stable, at baseline Hyponatremia - Sodium 129 on admission and trended up to 134 at time of discharge DM II--last HgbA1c 08/19/17 was 6.1 - Held metformin - restarted upon discharge - Lantus, sliding scale while inpatient - BSGs AC&HS - BSGs remained stable Depression, paranoia -Continue Risperdal 3 mg PO qd, Effexor 225 mg PO qd Patient cleared by PT/OT for discharge home. Attending Discharge note & attestation: Pt seen/examined, chart reviewed, discharge care plan d/w MICHELLE Stephenson. I agree w/ the francois components of her discharge summary. 77yo female - admitted 1 month ago for TIA - who presented with hyponatremia, altered MS, cough, congestion, and dyspnea. CXR at ER presentation showed right-sided pneumonia. She was begun on broad-spectrum IV antibiotics (cefepime, levaquin) to cover for possible gram negative etiology. The patient had an uneventful hospitalization marked by resolution of her leukocytosis, resolution of her pulmonary symptoms, and improved O2 requirement. Unfortunately she will need O2 with ambulation after discharge (but O2 sats at rest were normal in room air). CXR later in her stay showed consolidation in the RUL and mild opacities in the RLL without any effusion. Blood cx's were negative while here. 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 Hyponatremia improved to 134 with IVF. Her altered MS was thought 2nd to the hyponatremia & pneumonia NOT another TIA. She will complete 3 more days of oral levaquin after discharge. All other medical problems remained stable while here. Discharge exam: gen - nad neck - no JVD mouth - no thrush heart - RRR, s1, s2 lungs - mild rales right upper lobe anteriorly, otherwise CTA b/l abd - soft, NT ext - trace edema b/l Repeat cxr in 6 weeks is recommended to ensure resolution of infiltrates. Erik Bailey MD Total Time Spent: Greater than 30 minutes This includes examination of the patient, discharge planning, medication reconciliation, and communication with other providers. Discharge Instructions Please refer to the electronic Patient Visit Report (Discharge Instructions) for additional information. Follow-Up Dr. Bellamy's office with Megan Gtz PA-C on FridaySeptember 05 at 1:20 pm. Additional Copies To Tab Bellamy M.D.
== END 2017-09-01 18:30 | disposition home or self-care (01) | DRG 871 ==
LOC: C.EDB 22:50 → C.2T 08-27 01:13 → ENRESERV 08-27 01:23 → C.4E 08-29 12:22
PROVIDERS: ADMIT Hospitalist; ATTEND Internal Medicine
DX: A41.9 Sepsis, unspecified organism (principal); J15.6 Pneumonia due to other Gram-negative bacteria; G93.41 Metabolic encephalopathy; I21.A1 Myocardial infarction type 2; E87.1 Hypo-osmolality and hyponatremia; N17.9 Acute kidney failure, unspecified; I13.10 Hypertensive heart and chronic kidney disease without heart failure, with stage 1 through stage 4 chronic kidney disease, or unspecified chronic kidney disease; E11.22 Type 2 diabetes mellitus with diabetic chronic kidney disease; I25.10 Atherosclerotic heart disease of native coronary artery without angina pectoris; F32.9 Major depressive disorder, single episode, unspecified; N18.3 Chronic kidney disease, stage 3 (moderate); Z79.899 Other long term (current) drug therapy; Z79.4 Long term (current) use of insulin; Z79.82 Long term (current) use of aspirin; Z86.73 Personal history of transient ischemic attack (TIA), and cerebral infarction without residual deficits; Z83.3 Family history of diabetes mellitus; Z82.49 Family history of ischemic heart disease and other diseases of the circulatory system

== ENCOUNTER 2017-10-06 20:43 | Inpatient (IN) | payer OTHER ==
[~2017-10-06] VITALS: Ht 152.4 cm; Wt 86.9 kg
[~2017-10-06 20:43] MED LIST changes: -OPTIRAY 320 IV PRN
[2017-10-06] MEDS ORDERED: ALBUT/IPRATROP 3MG/0.5MG NEB 3 ML VIAL INH STA (20:59)
--- NOTE | 2017-10-06 21:15 | DIAGNOSTIC IMAGING REPORT ---
SINGLE VIEW CHEST CLINICAL HISTORY: Dyspnea. FINDINGS: An AP, portable, upright chest radiograph is compared to study dated 08/30/2017. The examination is degraded by portable technique and patient rotation. The heart is top normal for projection and there is atherosclerotic calcification of the thoracic aorta. There is prominence of the central pulmonary vessels. There is dense right basilar airspace consolidation with a right pleural effusion. A small left pleural effusion is noted. No pneumothorax is seen. The skeletal structures are osteopenic. The bony thorax is grossly intact. Calcific tendinopathy is noted in the left shoulder. IMPRESSION: 1. There is dense right bibasilar consolidation with associated right pleural effusion. The appearance suggests pneumonia. Clinical correlation will be required and radiographic follow-up to resolution is recommended. 2. A trace left pleural effusion is identified. 3. Cardiomegaly with prominence of the central pulmonary vessels. Cortical clinically for evidence of mild congestive failure. Electronically signed by: Sebastian Aguilar M.D. 10/06/2017 9:14 PM Dictated Date/Time: 10/06/2017 9:12 PM
[2017-10-06] MEDS ORDERED: LEVOFLOXACIN / D5W 750 MG in PREMIXED IN D5W 150 ML IV STA (21:29)
[2017-10-06] MEDS ORDERED: PIPERACILL/TAZOBAC IV 4.5 GM in DEXTROSE 5% 100ML 100 ML IV STA (21:29)
[2017-10-06 21:35] LABS: BASO % 0.2 %; BASO ABS # 0.02 K/uL (0-0.2); EOS % 1.7 %; EOS ABS # 0.14 K/uL (0-0.5); HEMATOCRIT 35.1 % (37-47); HEMOGLOBIN 11.2 g/dL (12.0-16.0); IG# 0.04 K/uL (0.00-0.02); LYMPH % 10.1 %; LYMPH ABS # 0.82 K/uL (1.2-3.4); MEAN CELL VOLUME 83.8 fL (80-100); MEAN CORPUSCULAR HEMOGLOBIN 26.7 pg (25-34); MEAN CORPUSCULAR HGB CONC 31.9 g/dl (32-36); MEAN PLATELET VOLUME 9.9 fL (7.4-10.4); MONO % 7.2 %; MONO ABS # 0.59 K/uL (0.11-0.59); NEUT % 80.3 %; NEUT ABS # 6.53 K/uL (1.4-6.5); NUCLEATED RED BLOOD CELL ABS 0.04 K/uL (0-0); PLATELET COUNT 342 K/uL (130-400); RED CELL DISTRIBUTION WIDTH CV 15.8 % (11.5-14.5); RED CELL DISTRIBUTION WIDTH SD 47.9 fL (36.4-46.3); WHITE BLOOD COUNT 8.14 K/uL (4.8-10.8)
[2017-10-06 21:46] LABS: INR 1.1 (0.9-1.1); PTT PATIENT 31.2 SECONDS (21.0-31.0)
[2017-10-06 22:56] LABS: ALBUMIN 2.9 gm/dl (3.4-5.0); CREATININE 0.79 mg/dl (0.60-1.20); POTASSIUM 4.4 mmol/L (3.5-5.1)
[2017-10-06 23:01] LABS: CKMB 2.8 ng/ml (0.5-3.6); TOTAL PROTEIN 7.1 gm/dl (6.4-8.2)
[2017-10-07] VITALS (11 sets, daily range): BP systolic 137–183; BP diastolic 72–90; PULSE 69–84; TEMP 36.4–36.8; O2SAT 86–95; Ht 152.4 cm; Wt 86.9 kg
[2017-10-07] MEDS ORDERED: GLUCOSE 40% GEL 15 GM TUBE PO PRN (01:45)
[2017-10-07] MEDS ORDERED: ACETAMINOPHEN 325 MG TAB PO PRN (01:45)
[2017-10-07] MEDS ORDERED: DEXTROSE 50% 50 ML SYR IV PRN (01:45)
[2017-10-07] MEDS ORDERED: MAGNESIUM HYDROXIDE SUSP 30 ML UDC PO PRN (01:45)
[2017-10-07] MEDS ORDERED: NITROGLYCERIN 0.4 MG SL PER TAB CHARGE SL PRN (01:45)
[2017-10-07] MEDS ORDERED: ONDANSETRON INJ 2 MG/ML 2 ML VIAL IV PRN (01:45)
[2017-10-07] MEDS ORDERED: GLUCAGON FOR INJ 1 MG VIAL SQ PRN (01:45)
[2017-10-07] MEDS ORDERED: GLUCOSE 10 TABS/TUBE PO PRN (01:45)
--- NOTE | 2017-10-07 02:00 | History and Physical ---
History & Physical Date & Time of Service: Oct 07, 2017 at 01:51 Chief Complaint: SOB Primary Care Physician: Tab Bellamy M.D. History of Present Illness Source: patient, hospital records The patient is a 77-year-old female with a past medical history of diabetes, hypertension, depression, and recently an episode of pneumonia 1 month ago with discharge on 2 L of oxygen, that presents with a one-month history of shortness of breath that has worsened over the last 2 days. The family states that she has been struggling to breathe over the last few days, gasping for air and also using accessory abdominal muscles in order to breathe. The patient has been on 2 L of oxygen since discharge from the hospital after experiencing her pneumonia. The family states that she experiences pneumonia after initially having been admitted to the hospital for concerns over a possible stroke. Before her episode of pneumonia, the patient never experienced any episodes of shortness of breath or chest pain. The patient has not had any flulike symptoms including fevers, chills, cough, or productive sputum. The patient does have an approximate [id number] smoking history. The patient was prescribed an albuterol inhaler as needed for wheezing on discharge. The patient was in the hospital earlier today for an MRI brain and CTA of the neck. Past Medical/Surgical History Medical Problems: (1) Depression Status: Chronic (2) DM (diabetes mellitus) Status: Chronic (3) HTN (hypertension) Status: Chronic (4) Kidney disease Status: Chronic Surgical Problems: (1) Hx of tonsillectomy Status: Resolved Family History Diabetes mellitus Heart disease Hypertension Social History Smoking Status: Former Smoker Smokeless Tobacco Use: No Alcohol Use: none Drug Use: none Marital Status: single, Occupational Status: retired Immunizations History of Influenza Vaccine: Yes Influenza Vaccine Date: Aug 09, 2011 History of Tetanus Vaccine?: Yes Tetanus Immunization Date: Apr 08, 2007 History of Pneumococcal: Yes Pneumococcal Date: Apr 08, 2012 History of Hepatitis B Vaccine: No Multi-Drug Resistant Organisms History of MDRO: No Allergies Coded Allergies: Bacitracin (Verified Allergy, Unknown, UNKNOWN, 10/06/17) Polymyxin B (Verified Allergy, Unknown, UNKNOWN, 10/06/17) Adhesives (Verified Adverse Reaction, Mild, RED AND ITCHY, 10/06/17) Home Medications Scheduled Albuterol (Ventolin Hfa), 2 PUFFS INH Q4H Amlodipine Besylate (Norvasc), 10 MG PO QAM Aspirin (Aspirin Ec), 81 MG PO QAM Cholecalciferol (Vitamin D3), 2,000 UNITS PO DAILY Clopidogrel Bisulfate (Clopidogrel), 75 MG PO DAILY Insulin Aspart (Novolog Flexpen), 6-8 UNITS SQ TIDM Insulin Glargine (Lantus), 16 UNITS SC QPM Lisinopril (Zestril), 40 MG PO QAM Metformin Hcl (Glucophage), 500 MG PO BIDM Metoprolol Succinate (Toprol Xl), 50 MG PO BID Risperidone (Risperdal), 3 MG PO HS Venlafaxine Hcl (Effexor Xr), 75 MG PO QAM Venlafaxine Hcl (Effexor Extended Rel), 150 MG PO QAM Review of Systems Constitutional: + fatigue, No fever, No chills, No sweats Respiratory: + wheezing, + shortness of breath, + dyspnea on exertion, No cough , No sputum Cardiovascular: No chest pain, No palpitations Abdomen: No pain, No nausea, No vomiting, No diarrhea, No constipation Genitourinary - Female: No dysuria Neurologic: + weakness, No numbness/tingling Endocrine: + fatigue Physical Exam Vital Signs Date Time Temp Pulse Resp B/P (MAP) Pulse Ox O2 Delivery O2 Flow Rate FiO2 10/07/17 00:49 71 28 176/81 90 Nasal Cannula 3.0 10/07/17 00:47 73 10/06/17 22:36 72 30 169/67 90 Nasal Cannula 3.0 10/06/17 21:09 95 Nasal Cannula 3.0 10/06/17 21:00 82 10/06/17 20:57 95 Nasal Cannula 3.0 10/06/17 20:46 36.7 93 24 203/79 62 Room Air General Appearance: + mild distress, + obese Head: normocephalic, atraumatic Eyes: normal inspection, sclerae normal Neck: supple, no JVD Respiratory/Chest: chest non-tender, + respiratory distress, + decreased breath sounds (over right lower lobe), + wheezing Cardiovascular: regular rate, rhythm, no gallop, no JVD, no murmur Abdomen/GI: normal bowel sounds, non tender, soft Extremities/Musculoskelatal: no calf tenderness, no pedal edema Neurologic/Psych: alert, oriented x 3 Diagnostics Laboratory Results Results Past 24 Hours Test 10/06/17 21:21 10/06/17 21:33 10/06/17 22:14 Range/Units White Blood Count 8.14 4.8-10.8 K/uL Red Blood Count 4.19 4.2-5.4 M/uL Hemoglobin 11.2 12.0-16.0 g/dL Hematocrit 35.1 37-47 % Mean Corpuscular Volume 83.8 80-100 fL Mean Corpuscular Hemoglobin 26.7 25-34 pg Mean Corpuscular Hemoglobin Concent 31.9 32-36 g/dl Platelet Count 342 130-400 K/uL Mean Platelet Volume 9.9 7.4-10.4 fL Neutrophils (%) (Auto) 80.3 % Lymphocytes (%) (Auto) 10.1 % Monocytes (%) (Auto) 7.2 % Eosinophils (%) (Auto) 1.7 % Basophils (%) (Auto) 0.2 % Neutrophils # (Auto) 6.53 1.4-6.5 K/uL Lymphocytes # (Auto) 0.82 1.2-3.4 K/uL Monocytes # (Auto) 0.59 0.11-0.59 K/uL Eosinophils # (Auto) 0.14 0-0.5 K/uL Basophils # (Auto) 0.02 0-0.2 K/uL RDW Standard Deviation 47.9 36.4-46.3 fL RDW Coefficient of Variation 15.8 11.5-14.5 % Immature Granulocyte % (Auto) 0.5 % Immature Granulocyte # (Auto) 0.04 0.00-0.02 K/uL Nucleated RBC Absolute Count (auto) 0.04 0-0 K/uL Nucleated Red Blood Cells % 0.4 % Prothrombin Time 11.8 9.0-12.0 SECONDS Prothromb Time International Ratio 1.1 0.9-1.1 Activated Partial Thromboplast Time 31.2 21.0-31.0 SECONDS Partial Thromboplastin Ratio 1.2 Sodium Level 136 136-145 mmol/L Potassium Level 4.4 3.5-5.1 mmol/L Chloride Level 97 98-107 mmol/L Carbon Dioxide Level 37 21-32 mmol/L Anion Gap 2.0 3-11 mmol/L Blood Urea Nitrogen 23 7-18 mg/dl Creatinine 0.79 0.60-1.20 mg/dl Est Creatinine Clear Calc Drug Dose 57.4 ml/min Estimated GFR () 82.5 Estimated GFR (Non- 71.2 BUN/Creatinine Ratio 28.4 10-20 Random Glucose 101 70-99 mg/dl Calcium Level 9.0 8.5-10.1 mg/dl Total Bilirubin 0.2 0.2-1 mg/dl Aspartate Amino Transf (AST/SGOT) 11 15-37 U/L Alanine Aminotransferase (ALT/SGPT) 20 12-78 U/L Alkaline Phosphatase 62 45-117 U/L Total Creatine Kinase 55 26-192 U/L Creatine Kinase MB 2.8 0.5-3.6 ng/ml Creatine Kinase MB Ratio 5.1 0-3.0 Troponin I 0.020 0-0.045 ng/ml Pro-B-Type Natriuretic Peptide 464 0-1800 pg/ml Total Protein 7.1 6.4-8.2 gm/dl Albumin 2.9 3.4-5.0 gm/dl Globulin 4.2 2.5-4.0 gm/dl Albumin/Globulin Ratio 0.7 0.9-2 Arterial Blood pH 7.35 7.35-7.45 Arterial Blood Partial Pressure CO2 64 35-46 mmHg Arterial Blood Partial Pressure O2 66 80-95 mm/Hg Arterial Blood HCO3 35 19-24 mmol/L Arterial Blood Oxygen Saturation 89.5 90-95 % Arterial Blood Base Excess 7.3 -9-1.8 mEq/L Arterial Blood Gas Delivery 3 L Arian Test POS POS Bedside Lactic Acid Venous 0.50 0.90-1.70 mmol/L Microbiology Results 10/06/17 Blood Culture, Received Pending 10/06/17 Blood Culture, Received Pending Impression Assessment and Plan The patient is a 77-year-old female with a past medical history of diabetes, hypertension, depression, and recently an episode of pneumonia 1 month ago with discharge on 2 L of oxygen, that presents with a one-month history of shortness of breath that has worsened over the last 2 days. 1) Acute Hypoxic Respiratory Failure - Supplemental oxygen to maintain SpO2 > 92% - Duonebs q3h + q2h PRN for shortness of breath - CXR: 1. There is dense right bibasilar consolidation with associated right pleural effusion. The appearance suggests pneumonia. Clinical correlation will be required and radiographic follow-up to resolution is recommended. 2. A trace left pleural effusion is identified. 3. Cardiomegaly with prominence of the central pulmonary vessels. Cortical clinically for evidence of mild congestive failure. - Repeat Chest CT - Most recent ECHO on 08/27 shows EF of 65-70% 2) Hospital Acquired Pneumonia - See X-ray findings above - Vancomycin and Zosyn - Blood Cultures - Oxygen and Duonebs as needed - Pulmonary Consult --> concern for repeat pnuemonias in the right lung, risk of COPD due to extensive smoking history, continued oxygen use despite antibiotic therapy 3) Diabetes - Lantus 16 units SC qPM - ISS - BSG AC & HS - Hold home metformin 4) Carotid Stenosis - High Grade Stenosis in right coronary artery on CTA neck yesterday --> ordered by Dr. Briceno as part of stroke workup - Continue home Aspirin and Plavex 5) Hypertension - Continue home Norvasc, Zestril, and Toprol XL 6) Depression - Continue home Risperdal and Effexor 7) DVT Prophylaxis - Heparin 8) Code Status - Full Resuscitation Attending addendum: I have physically seen this patient, have supervised the medical residents activities, and agree with the H&P unless as otherwise noted. Assessment and Plan: Acute respiratory therapy with hypoxia/healthcare associated pneumonia-- The patient will be admitted to telemetry for serial cardiac enzymes, serial EKG's, cardiac rhythm monitoring. Most recent echo on 08/27 shows EF 65-70%. Vancomycin IV per pharmacokinetic monitoring Zosyn 3.375 mg IV every 8 hours Levofloxacin 500 mg IV every 24 hours Duonebs every 4 hours while awake and every 2 hours when necessary. Pulmicort Respules 0.5 mg inhaled twice a day Guaifenesin extended release 600 mg by mouth twice a day Nasal cannula oxygen titrate to keep pulse ox greater than or equal to 92% Follow sputum Gram stain and culture, and cultures. Consult pulmonology Level of Care Telemetry Advanced Directives Existing Advance Directive: No Existing Living Will: No Existing Power of Reel And Rewinder Operator: No Resuscitation Status FULL RESUSCITATION VTE Prophylaxis VTE Risk Assessment Done? Y/N: Yes Risk Level: Moderate Given or contraindicated: Unfractionated heparin SQ Resident Tracking Resident Involvement: Resident Care Provided Care Provided: Adult Hospital Medicine
--- NOTE | 2017-10-07 02:45 | EMERGENCY ROOM VISIT NOTE ---
History Report prepared by Scott: Mak Jamil Under the Supervision of: Dr. Román Worley D.O. First contact with patient: 20:53 Chief Complaint: SHORTNESS OF BREATH Stated Complaint: SOB History of Present Illness The patient is a 77 year old female who presents to the Emergency Room with complaints of constant shortness of breath beginning a month ago. The patient states she had pneumonia a month ago, and since then, she has been short of breath. She reports she cannot walk or hold a conversation without getting short of breath. The patient's family notes the patient was here 5 weeks ago for her sodium level. They state it is suspected that the patient picked up her pneumonia during that visit because she did not show signs of pneumonia. The family reports she came to the ED for a fever and was diagnosed with pneumonia. They note she did not have a cough or congestion. The patient states she thinks her pneumonia may not have been completely resolved. She reports she was discharged on 2L of oxygen, and she has never had to wear oxygen before. She states she has a chest x-ray scheduled in 6 days, but she did not want to wait for it. The patient denies swelling in her legs. She notes she has a history of smoking but quit several years ago. Source of History: patient Onset: a month ago Position: other (global) Quality: other (SOB) Timing: constant Modifying Factors (Worsening): exertion, other (talking) Note: Denies: swelling in her legs Review of Systems See HPI for pertinent positives & negatives. A total of 10 systems reviewed and were otherwise negative. Past Medical & Surgical Medical Problems: (1) Depression (2) DM (diabetes mellitus) (3) HCAP (healthcare-associated pneumonia) (4) HTN (hypertension) (5) Kidney disease (6) TIA (transient ischemic attack) Surgical Problems: (1) Hx of tonsillectomy Family History Diabetes mellitus Heart disease Hypertension Social History Smoking Status: Former Smoker Alcohol Use: none Drug Use: none Marital Status: single, Housing Status: lives with family Occupation Status: retired Current/Historical Medications Scheduled Albuterol (Ventolin Hfa), 2 PUFFS INH Q4H Amlodipine Besylate (Norvasc), 10 MG PO QAM Aspirin (Aspirin Ec), 81 MG PO QAM Cholecalciferol (Vitamin D3), 2,000 UNITS PO DAILY Clopidogrel Bisulfate (Clopidogrel), 75 MG PO DAILY Insulin Aspart (Novolog Flexpen), 6-8 UNITS SQ TIDM Insulin Glargine (Lantus), 16 UNITS SC QPM Lisinopril (Zestril), 40 MG PO QAM Metformin Hcl (Glucophage), 500 MG PO BIDM Metoprolol Succinate (Toprol Xl), 50 MG PO BID Risperidone (Risperdal), 3 MG PO HS Venlafaxine Hcl (Effexor Xr), 75 MG PO QAM Venlafaxine Hcl (Effexor Extended Rel), 150 MG PO QAM Allergies Coded Allergies: Bacitracin (Verified Allergy, Unknown, UNKNOWN, 10/06/17) Polymyxin B (Verified Allergy, Unknown, UNKNOWN, 10/06/17) Adhesives (Verified Adverse Reaction, Mild, RED AND ITCHY, 10/06/17) Physical Exam Vital Signs Date Time Temp Pulse Resp B/P (MAP) Pulse Ox O2 Delivery O2 Flow Rate FiO2 10/07/17 02:10 70 30 157/63 91 Room Air 10/07/17 00:49 71 28 176/81 90 Nasal Cannula 3.0 10/07/17 00:47 73 10/06/17 22:36 72 30 169/67 90 Nasal Cannula 3.0 10/06/17 21:09 95 Nasal Cannula 3.0 10/06/17 21:00 82 10/06/17 20:57 95 Nasal Cannula 3.0 10/06/17 20:46 36.7 93 24 203/79 62 Room Air Physical Exam CONSTITUTIONAL/VITAL SIGNS: Reviewed / noted above. GENERAL: Non-toxic in appearance. INTEGUMENTARY: Warm, dry, and [place]. HEAD: Normocephalic. EYES: without scleral icterus or trauma. ENT/OROPHARYNX: clear and moist. LYMPHADENOPATHY/NECK: Is supple without lymphadenopathy or meningismus. RESPIRATORY: Diminished breath sounds on the right compared to left. Poor air movement bilaterally. Increased rate of respirations. Mild increase workers breathing. CARDIOVASCULAR: Regular rate and rhythm. GI/ABDOMEN: Soft and nontender. No organomegaly or pulsatile mass. No rebound or guarding. Normal bowel sounds. EXTREMITIES: Warm and well perfused. BACK: No CVA tenderness. NEUROLOGICAL: Intact without focal deficits. PSYCHIATRIC: normal affect. MUSCULOSKELETAL: Normally developed with good muscle tone. Medical Decision & Procedures ER Provider Diagnostic Interpretation: X ray results and stated below per my interpretation and radiology interpretation. SINGLE VIEW CHEST CLINICAL HISTORY: Dyspnea. FINDINGS: An AP, portable, upright chest radiograph is compared to study dated 08/30/2017. The examination is degraded by portable technique and patient rotation. The heart is top normal for projection and there is atherosclerotic calcification of the thoracic aorta. There is prominence of the central pulmonary vessels. There is dense right basilar airspace consolidation with a right pleural effusion. A small left pleural effusion is noted. No pneumothorax is seen. The skeletal structures are osteopenic. The bony thorax is grossly intact. Calcific tendinopathy is noted in the left shoulder. IMPRESSION: 1. There is dense right bibasilar consolidation with associated right pleural effusion. The appearance suggests pneumonia. Clinical correlation will be required and radiographic follow-up to resolution is recommended. 2. A trace left pleural effusion is identified. 3. Cardiomegaly with prominence of the central pulmonary vessels. Cortical clinically for evidence of mild congestive failure. Electronically signed by: Sebastian Aguilar M.D. 10/06/2017 9:14 PM Dictated Date/Time: 10/06/2017 9:12 PM Laboratory Results 10/06/17 21:21 Red Blood Count 4.19, Mean Corpuscular Volume 83.8, Mean Corpuscular Hemoglobin 26.7, Mean Corpuscular Hemoglobin Concent 31.9, Mean Platelet Volume 9.9, Neutrophils (%) (Auto) 80.3, Lymphocytes (%) (Auto) 10.1, Monocytes (%) (Auto) 7.2, Eosinophils (%) (Auto) 1.7, Basophils (%) (Auto) 0.2, Neutrophils # (Auto) 6.53, Lymphocytes # (Auto) 0.82, Monocytes # (Auto) 0.59, Eosinophils # (Auto) 0.14, Basophils # (Auto) 0.02 10/06/17 21:21 Test 10/06/17 21:21 10/06/17 21:33 10/06/17 22:14 White Blood Count 8.14 K/uL (4.8-10.8) Red Blood Count 4.19 M/uL (4.2-5.4) Hemoglobin 11.2 g/dL (12.0-16.0) Hematocrit 35.1 % (37-47) Mean Corpuscular Volume 83.8 fL (80-100) Mean Corpuscular Hemoglobin 26.7 pg (25-34) Mean Corpuscular Hemoglobin Concent 31.9 g/dl (32-36) Platelet Count 342 K/uL (130-400) Mean Platelet Volume 9.9 fL (7.4-10.4) Neutrophils (%) (Auto) 80.3 % Lymphocytes (%) (Auto) 10.1 % Monocytes (%) (Auto) 7.2 % Eosinophils (%) (Auto) 1.7 % Basophils (%) (Auto) 0.2 % Neutrophils # (Auto) 6.53 K/uL (1.4-6.5) Lymphocytes # (Auto) 0.82 K/uL (1.2-3.4) Monocytes # (Auto) 0.59 K/uL (0.11-0.59) Eosinophils # (Auto) 0.14 K/uL (0-0.5) Basophils # (Auto) 0.02 K/uL (0-0.2) RDW Standard Deviation 47.9 fL (36.4-46.3) RDW Coefficient of Variation 15.8 % (11.5-14.5) Immature Granulocyte % (Auto) 0.5 % Immature Granulocyte # (Auto) 0.04 K/uL (0.00-0.02) Nucleated RBC Absolute Count (auto) 0.04 K/uL (0-0) Nucleated Red Blood Cells % 0.4 % Prothrombin Time 11.8 SECONDS (9.0-12.0) Prothromb Time International Ratio 1.1 (0.9-1.1) Activated Partial Thromboplast Time 31.2 SECONDS (21.0-31.0) Partial Thromboplastin Ratio 1.2 Anion Gap 2.0 mmol/L (3-11) Est Creatinine Clear Calc Drug Dose 57.4 ml/min Estimated GFR () 82.5 Estimated GFR (Non- 71.2 BUN/Creatinine Ratio 28.4 (10-20) Calcium Level 9.0 mg/dl (8.5-10.1) Total Bilirubin 0.2 mg/dl (0.2-1) Aspartate Amino Transf (AST/SGOT) 11 U/L (15-37) Alanine Aminotransferase (ALT/SGPT) 20 U/L (12-78) Alkaline Phosphatase 62 U/L (45-117) Total Creatine Kinase 55 U/L (26-192) Creatine Kinase MB 2.8 ng/ml (0.5-3.6) Creatine Kinase MB Ratio 5.1 (0-3.0) Troponin I 0.020 ng/ml (0-0.045) Pro-B-Type Natriuretic Peptide 464 pg/ml (0-1800) Total Protein 7.1 gm/dl (6.4-8.2) Albumin 2.9 gm/dl (3.4-5.0) Globulin 4.2 gm/dl (2.5-4.0) Albumin/Globulin Ratio 0.7 (0.9-2) Arterial Blood pH 7.35 (7.35-7.45) Arterial Blood Partial Pressure CO2 64 mmHg (35-46) Arterial Blood Partial Pressure O2 66 mm/Hg (80-95) Arterial Blood HCO3 35 mmol/L (19-24) Arterial Blood Oxygen Saturation 89.5 % (90-95) Arterial Blood Base Excess 7.3 mEq/L (-9-1.8) Arterial Blood Gas Delivery 3 L Arian Test POS (POS) Bedside Lactic Acid Venous 0.50 mmol/L (0.90-1.70) Laboratory results as stated above per my review. Medications Administered Medications (Trade) Dose Ordered Sig/Jakub Route Start Time Stop Time Status Last Admin Dose Admin Albuterol/ Ipratropium (Duoneb) 3 ml NOW STAT INH 10/06/17 20:59 10/06/17 21:02 DC 10/06/17 21:35 3 ML Piperacillin Sod/ Tazobactam Sod 4.5 gm/Dextrose 120 ml @ 200 mls/hr Q6 STAT IV 10/06/17 21:29 10/06/17 22:04 DC 10/06/17 22:35 200 MLS/HR Levofloxacin 750 mg/Prmx 150 ml @ 100 mls/hr Q24H STAT IV 10/06/17 21:29 10/06/17 22:58 DC 10/06/17 23:12 100 MLS/HR ECG Indication: SOB/dyspnea Rate (beats per minute): 77 Rhythm: normal sinus Findings: RBBB, no acute ischemic change, no ectopy ED Course 2053: Previous medical records were reviewed. The patient was evaluated in room A11B. A complete history and physical examination was performed. 2058: Ordered Albuterol/Ipratropium 3 ml INH 2128: Ordered Levofloxacin 750 mg/Prmx 150 ml @ 100 mls/hr IV, Piperacillin Sod/ Tazobactam Sod 4.5 gm/Dextrose 120 ml @ 200 mls/hr IV 2356: On reevaluation, the patient is resting comfortably. I discussed the results and findings with her. She verbalized agreement of the treatment plan. The patient will be evaluated for further management and care. 2358: I discussed the patient's case with Dr. Squires [facility] Hospitalist. The patient will be evaluated for further management and care. Medical Decision Differentials considered include acute myocardial infarction, acute coronary syndrome, myocarditis, pericarditis, pericardial effusions /tamponade, esophageal perforation, pulmonary embolism, pneumonia, pneumothorax, cardiomyopathy, congestive heart, anemia, and COPD/asthma exacerbation. This is a 77-year-old female who presents to the ED with a chief complaint of having pneumonia 1 month ago. The patient was discharged on oxygen at that time. She has become increasingly weak recently and short of breath with exertion. She is requiring 2 L of oxygen at home but this does not seem to be assisting with her dyspnea. The past 5 days the patient has progressively worsened. Her initial blood pressure was 203/77. This did improve some during her stay. The patient's exam revealed diminished breath sounds on the right. Chest x-ray revealed right base pneumonia. EKG shows a normal sinus rhythm. CBC was unremarkable, troponin was negative and a BnP was normal. An ABG reveals a normal acid base status with PCO2 of 64 and PaO2 66. She is somewhat hypercarbic although this appears to be mostly chronic. The patient was started on IV antibiotics. She was given a DuoNeb treatment. She will be seen by the hospitalist service for further inpatient evaluation and care. Medication Reconcilliation Current Medication List: was personally reviewed by me Blood Pressure Screening Patient's blood pressure: Elevated blood pressure Blood pressure disposition: Elevated BP felt to be situational Monitored by hospitalist. Consults Time Called: 2350 Consulting Physician: Dr. Squires [facility] Hospitalist Returned Call: [phone] I discussed the patient's case with Dr. Squires [facility] Hospitalist. The patient will be evaluated for further management and care. Impression Primary Impression: PNA (pneumonia) Scribe Attestation The scribe's documentation has been prepared under my direction and personally reviewed by me in its entirety. I confirm that the note above accurately reflects all work, treatment, procedures, and medical decision making performed by me. Departure Information Dispostion Being Evaluated By Hospitalist Referrals Tab Bellamy M.D. (PCP) Patient Instructions My [facility] [address]
[2017-10-07] MEDS ORDERED: VANCOMYCIN INJ 2,000 MG in SODIUM CHLORIDE 0.9% 500ML 500 ML IV SCH (04:00)
[2017-10-07] MEDS ORDERED: PIPERACILL/TAZOBAC CONSULT ACTIVE PRN (04:00)
[2017-10-07] MEDS ORDERED: VANCOMYCIN CONSULT ACTIVE PRN (04:00)
[2017-10-07] MEDS: PIPERACILL/TAZOBAC IV 4.5 GM in DEXTROSE 5% 100ML IV SCH ×3 (04:54→19:59)
[2017-10-07] MEDS ORDERED: PIPERACILL/TAZOBAC IV 3.375 GM in DEXTROSE 5% 100ML 100 ML IV SCH (06:00)
[2017-10-07] MEDS: HEPARIN SOD 5000 UNIT/0.5 ML CARP SQ SCH ×3 (06:26→21:05)
[2017-10-07] MEDS: ALBUT/IPRATROP 3MG/0.5MG NEB 3 ML VIAL INH SCH ×4 (07:38→20:03)
--- NOTE | 2017-10-07 08:12 | DIAGNOSTIC IMAGING REPORT ---
(CHEST) THORAX WITHOUT CT DOSE: 595.88 mGy.cm HISTORY: Short of breath. recurrent pneumonia TECHNIQUE: Multiaxial CT images of the chest were performed without contrast. A dose lowering technique was utilized adhering to the principles of ALARA. COMPARISON: Chest CTA 07/22/2017. FINDINGS: Interval development of a moderate to large right pleural effusion. This results in compressive atelectasis of the posterior aspects of the right upper lobe and right lower lobe. No pneumothorax. Nodular septal thickening with scattered groundglass airspace opacities suggestive of pulmonary edema. There are few small nodular opacities within the left lower lobe demonstrating a groundglass halo. This favors a component of the pulmonary edema or a mild infectious change. Central airways are patent. No suspicious lytic or blastic osseous lesions. No acute fractures within the visualized osseous structures. The visualized liver and spleen are unremarkable. Mild bilateral adrenal gland thickening, unchanged. A few borderline enlarged. Lymph nodes which have slightly increased in size. Normal caliber thoracic aorta. The heart is mildly enlarged. No significant pericardial effusion. IMPRESSION: 1. Interval development of a moderate to large right pleural effusion. 2. Mild cardiomegaly with mild pulmonary edema. 3. Prominent mediastinal lymph nodes which may be reactive. 4. Small nodular opacities within the left lower lobe demonstrating a groundglass halo. This could be due to pulmonary edema or mild infectious change. Electronically signed by: Willam Reyes M.D. 10/07/2017 8:11 AM Dictated Date/Time: 10/07/2017 8:03 AM
[2017-10-07] MEDS: VENLAFAXINE HCL XR 75 MG CAPXR PO SCH (08:14)
[2017-10-07] MEDS: VENLAFAXINE HCL XR 150 MG CAPXR PO SCH (08:14)
[2017-10-07] MEDS: METOPROLOL SUCC 50MG EXT REL TAB PO SCH ×2 (08:15→20:55)
[2017-10-07] MEDS: LISINOPRIL 40 MG TAB PO SCH (08:15)
[2017-10-07] MEDS: AMLODIPINE BESYLATE 5 MG TAB PO SCH (08:16)
[2017-10-07] MEDS: ASPIRIN 81 MG ECTAB PO SCH (08:16)
--- NOTE | 2017-10-07 08:33 | Pharmacy Progress Note ---
Pharmacy Abx Initial Consult Date of Service Oct 07, 2017. Pharmacy Dosing Scope Date of Consult: 10/07/17 Consultation requested by: Dr. Alvarado Pharmacy is consulted to initiate Vancomycin/Zosyn IV dosing therapy, order appropriate labs and adjust drug dose/frequency. Subjective The patient is a 77 year old female admitted on Oct 07, 2017 at 01:50 with respiratory failure. Objective Height (Feet): 5 Height (Inches): 0.00 Weight (Kilograms): 89.600 Vital Signs (Past 12Hrs) Vital Signs Past 12 Hours Date Time Temp Pulse Resp B/P (MAP) Pulse Ox O2 Delivery O2 Flow Rate FiO2 10/07/17 08:12 84 163/76 (105) 10/07/17 07:44 70 16 86 Nasal Cannula 3.0 10/07/17 07:35 36.8 73 18 170/79 (109) 91 3.0 10/07/17 05:06 19 170/73 (105) 95 Nasal Cannula 3.0 10/07/17 03:10 36.4 78 20 183/90 90 Nasal Cannula 3.0 10/07/17 02:41 79 26 150/89 91 10/07/17 02:10 70 30 157/63 91 Room Air 10/07/17 00:49 71 28 176/81 90 Nasal Cannula 3.0 10/07/17 00:47 73 10/06/17 22:36 72 30 169/67 90 Nasal Cannula 3.0 10/06/17 21:09 95 Nasal Cannula 3.0 10/06/17 21:00 82 10/06/17 20:57 95 Nasal Cannula 3.0 10/06/17 20:46 36.7 93 24 203/79 62 Room Air Lab Results (24Hrs) Laboratory Tests (24 Hours) Test 10/06/17 21:21 White Blood Count 8.14 K/uL (4.8-10.8) Red Blood Count 4.19 M/uL (4.2-5.4) L Hemoglobin 11.2 g/dL (12.0-16.0) L Hematocrit 35.1 % (37-47) L Mean Corpuscular Volume 83.8 fL (80-100) Mean Corpuscular Hemoglobin 26.7 pg (25-34) Mean Corpuscular Hemoglobin Concent 31.9 g/dl (32-36) L Platelet Count 342 K/uL (130-400) Mean Platelet Volume 9.9 fL (7.4-10.4) Neutrophils (%) (Auto) 80.3 % Lymphocytes (%) (Auto) 10.1 % Monocytes (%) (Auto) 7.2 % Eosinophils (%) (Auto) 1.7 % Basophils (%) (Auto) 0.2 % Neutrophils # (Auto) 6.53 K/uL (1.4-6.5) H Lymphocytes # (Auto) 0.82 K/uL (1.2-3.4) L Monocytes # (Auto) 0.59 K/uL (0.11-0.59) Eosinophils # (Auto) 0.14 K/uL (0-0.5) Basophils # (Auto) 0.02 K/uL (0-0.2) Total Creatine Kinase 55 U/L (26-192) Micro Results Date/Time Source Procedure Growth Status 10/06/17 21:33 Blood Blood Culture Pending Received 10/06/17 20:59 Blood Blood Culture Pending Received Risk Factors for Resistance * Hospitalization for 48 hours or more within the past 90 days * Antimicrobial use within the last 90 days: Levaquin + Cefepime IV Assessment & Plan Assessment 77 year old female admitted with respiratory failure likely secondary to a recurrent pneumonia. Pt initiated on Vancomycin/Zosyn IV and blood cultures pending. MRSA nasal swab added to aid in future deescalation. Plan Vancomycin IV * Loading dose: 2000 mg (22 mg/kg) * Maintenance dose: 1250 mg IV (14 mg/kg) every 14 hours * Goal trough level for pneumonia: 15 to 20 mcg/mL * Trough level ordered for 10/09/17 @1130 prior to 1200 dose. * There is a likelihood of drug accumulation in BMI >35 which should be seen around day 3-5 of continued therapy. Will initiate aggressive Vancomycin given clinical picture and pull back if/when drug accumulation takes place. Piperacillin/tazobactam * 4.5 g IV extended infusion every 8 hours for CrCl greater than 20 mL/min * Aggressive dosing selected due to BMI 35 Pharmacy will continue to follow and will adjust dose/frequency as necessary. Thank you.
[2017-10-07] MEDS: INSULIN ASPART 100 UNITS/ML 3 ML PEN SC SCH ×4 (08:52→20:54)
[2017-10-07] MEDS ORDERED: VANCOMYCIN INJ 1,000 MG in SODIUM CHLORIDE 0.9% 250ML 250 ML IV SCH (09:00)
[2017-10-07] MEDS ORDERED: CLOPIDOGREL BISULFATE 75 MG TAB PO SCH (09:00)
--- NOTE | 2017-10-07 10:40 | Hospitalist Progress Note ---
Hospitalist Progress Note Date of Service Oct 07, 2017. Subjective Pt evaluation today including: conversation w/ patient, physical exam, chart review, lab review, review of studies, conversation w/ internet consultant (Sebastian Stein PA-C - Pulmonary), review of inpatient medication list Patient seen and evaluated. Admitted early this AM for suspected HCAP. Patient is afebrile and without leukocytosis with a large R pleural effusion with minimal L sided effusion. Echo reviewed from previous admission with appropriate EF and no mention of diastolic dysfunction. Given smoking history this effusion is concerning. She denies unintentional weight loss but does report she has noticed sweating at night x approx. 2 weeks. Likely she will need a thoracentesis to further evaluation. She denies feeling SOB and is laying relatively flat. Appears to be breathing more from the abdomen. Mentation is appropriate. Constitutional: + sweats (nightly x 2 weeks), No fever, No chills, No weight loss Respiratory: + dyspnea on exertion, No cough, No shortness of breath Cardiovascular: No chest pain Abdomen: No pain, No nausea, No vomiting, No diarrhea, No constipation, No GI bleeding Musculoskeletal: + swelling (b/l hands - denies swelling of b/l lower extremities), No calf pain Female : No dysuria Heme: No abnormal bleeding/bruising Medications Current Inpatient Medications Medications (Trade) Dose Ordered Sig/Symone Route Start Time Stop Time Status Last Admin Dose Admin Heparin Sodium (Porcine) (Heparin Sq 5000 Unit/0.5ml) 5,000 unit Q8 SQ 10/07/17 06:00 11/06/17 05:59 10/07/17 06:26 5,000 UNIT Acetaminophen (Tylenol Tab) 650 mg Q4H PRN PO 10/07/17 01:45 11/06/17 01:44 Magnesium Hydroxide (Milk Of Magnesia Susp) 30 ml Q12H PRN PO 10/07/17 01:45 11/06/17 01:44 Ondansetron HCl (Zofran Inj) 4 mg Q6H PRN IV 10/07/17 01:45 11/06/17 01:44 Nitroglycerin (Nitrostat Tab) 0.4 mg UD PRN SL 10/07/17 01:45 11/06/17 01:44 Polyethylene (Miralax Powder Packet) 17 gm DAILY PRN PO 10/07/17 01:45 11/06/17 01:44 Insulin Aspart (novoLOG ASPART) SLIDING SCALE If C... ACHS SC 10/07/17 06:30 11/06/17 06:59 10/07/17 08:52 3 UNITS Glucose (Glucose 40% Gel) 15-30 GRAMS 15 GRAMS... UD PRN PO 10/07/17 01:45 11/06/17 01:44 Glucose (Glucose Chew Tab) 4-8 Tablets 4 Tabl... UD PRN PO 10/07/17 01:45 11/06/17 01:44 Dextrose (Dextrose 50% 50ML Syringe) 25-50ML OF 50% DW IV FOR... UD PRN IV 10/07/17 01:45 11/06/17 01:44 Glucagon (Glucagon Inj) 1 mg UD PRN SQ 10/07/17 01:45 11/06/17 01:44 Amlodipine Besylate (Norvasc Tab) 10 mg QAM PO 10/07/17 09:00 11/06/17 08:59 10/07/17 08:16 10 MG Aspirin (Ecotrin Tab) 81 mg QAM PO 10/07/17 09:00 11/06/17 08:59 10/07/17 08:16 81 MG Clopidogrel Bisulfate (plAVix TAB) 75 mg DAILY PO 10/07/17 09:00 11/06/17 08:59 10/07/17 08:15 75 MG Insulin Glargine (Lantus Solostar Pen) 16 units QPM SC 10/07/17 21:00 11/06/17 20:59 Lisinopril (Zestril Tab) 40 mg QAM PO 10/07/17 09:00 11/06/17 08:59 10/07/17 08:15 40 MG Metoprolol Succinate (Toprol Xl Tab) 50 mg BID PO 10/07/17 09:00 11/06/17 08:59 10/07/17 08:15 50 MG Risperidone (Risperdal Tab) 3 mg HS PO 10/07/17 21:00 11/06/17 20:59 Venlafaxine HCl (effeXOR EXTENDED REL CAP) 150 mg QAM PO 10/07/17 09:00 11/06/17 08:59 10/07/17 08:14 150 MG Venlafaxine HCl (effeXOR EXTENDED REL CAP) 75 mg QAM PO 10/07/17 09:00 11/06/17 08:59 10/07/17 08:14 75 MG Albuterol/ Ipratropium (Duoneb) 3 ml QIDR INH 10/07/17 08:00 11/06/17 07:59 10/07/17 07:38 3 ML Piperacillin Sod/ Tazobactam Sod 4.5 gm/Dextrose 120 ml @ 30 mls/hr Q8H IV 10/07/17 04:00 10/14/17 03:59 10/07/17 04:54 30 MLS/HR Vancomycin HCl (Consult) 1 ea UD PRN N/A 10/07/17 04:00 11/06/17 03:59 Piperacillin Sod/ Tazobactam Sod (Consult) 1 ea UD PRN N/A 10/07/17 04:00 11/06/17 03:59 Vancomycin HCl 1250 mg/Sodium Chloride 275 ml @ 125 mls/hr Q14H IV 10/07/17 18:00 10/14/17 17:59 Objective Vital Signs Date Time Temp Pulse Resp B/P (MAP) Pulse Ox O2 Delivery O2 Flow Rate FiO2 10/07/17 08:12 84 163/76 (105) 10/07/17 08:00 Nasal Cannula 4.0 10/07/17 07:44 70 16 86 Nasal Cannula 3.0 10/07/17 07:35 36.8 73 18 170/79 (109) 91 3.0 10/07/17 05:06 19 170/73 (105) 95 Nasal Cannula 3.0 10/07/17 03:10 36.4 78 20 183/90 90 Nasal Cannula 3.0 10/07/17 02:41 79 26 150/89 91 10/07/17 02:10 70 30 157/63 91 Room Air 10/07/17 00:49 71 28 176/81 90 Nasal Cannula 3.0 10/07/17 00:47 73 10/06/17 22:36 72 30 169/67 90 Nasal Cannula 3.0 10/06/17 21:09 95 Nasal Cannula 3.0 10/06/17 21:00 82 10/06/17 20:57 95 Nasal Cannula 3.0 10/06/17 20:46 36.7 93 24 203/79 62 Room Air Physical Exam General Appearance: WD/WN, + mild distress (labored breathing/abdominal breathing - however able to care a full conversation), + obese Eyes: sclerae normal ENT: hearing grossly normal Neck: supple, + JVD Respiratory/Chest: + decreased breath sounds (largely diminished profusely but likely rom body habitus - no exp. wheeze and hard to apprec. crackles; air flow better in L compared to R) Cardiovascular: regular rate, rhythm Abdomen: normal bowel sounds, non tender, soft Extremities: no pedal edema, no calf tenderness Neurologic/Psychiatric: alert, oriented x 3 Skin: normal color, warm/dry Laboratory Results Last 24 Hours Test 10/06/17 21:21 10/06/17 21:33 10/06/17 22:14 10/07/17 07:38 White Blood Count 8.14 K/uL Red Blood Count 4.19 M/uL Hemoglobin 11.2 g/dL Hematocrit 35.1 % Mean Corpuscular Volume 83.8 fL Mean Corpuscular Hemoglobin 26.7 pg Mean Corpuscular Hemoglobin Concent 31.9 g/dl Platelet Count 342 K/uL Mean Platelet Volume 9.9 fL Neutrophils (%) (Auto) 80.3 % Lymphocytes (%) (Auto) 10.1 % Monocytes (%) (Auto) 7.2 % Eosinophils (%) (Auto) 1.7 % Basophils (%) (Auto) 0.2 % Neutrophils # (Auto) 6.53 K/uL Lymphocytes # (Auto) 0.82 K/uL Monocytes # (Auto) 0.59 K/uL Eosinophils # (Auto) 0.14 K/uL Basophils # (Auto) 0.02 K/uL RDW Standard Deviation 47.9 fL RDW Coefficient of Variation 15.8 % Immature Granulocyte % (Auto) 0.5 % Immature Granulocyte # (Auto) 0.04 K/uL Nucleated RBC Absolute Count (auto) 0.04 K/uL Nucleated Red Blood Cells % 0.4 % Prothrombin Time 11.8 SECONDS Prothromb Time International Ratio 1.1 Activated Partial Thromboplast Time 31.2 SECONDS Partial Thromboplastin Ratio 1.2 Sodium Level 136 mmol/L Potassium Level 4.4 mmol/L Chloride Level 97 mmol/L Carbon Dioxide Level 37 mmol/L Anion Gap 2.0 mmol/L Blood Urea Nitrogen 23 mg/dl Creatinine 0.79 mg/dl Est Creatinine Clear Calc Drug Dose 57.4 ml/min Estimated GFR () 82.5 Estimated GFR (Non- 71.2 BUN/Creatinine Ratio 28.4 Random Glucose 101 mg/dl Calcium Level 9.0 mg/dl Total Bilirubin 0.2 mg/dl Aspartate Amino Transf (AST/SGOT) 11 U/L Alanine Aminotransferase (ALT/SGPT) 20 U/L Alkaline Phosphatase 62 U/L Total Creatine Kinase 55 U/L Creatine Kinase MB 2.8 ng/ml Creatine Kinase MB Ratio 5.1 Troponin I 0.020 ng/ml Pro-B-Type Natriuretic Peptide 464 pg/ml Total Protein 7.1 gm/dl Albumin 2.9 gm/dl Globulin 4.2 gm/dl Albumin/Globulin Ratio 0.7 Arterial Blood pH 7.35 Arterial Blood Partial Pressure CO2 64 mmHg Arterial Blood Partial Pressure O2 66 mm/Hg Arterial Blood HCO3 35 mmol/L Arterial Blood Oxygen Saturation 89.5 % Arterial Blood Base Excess 7.3 mEq/L Arterial Blood Gas Delivery 3 L Arian Test POS Bedside Lactic Acid Venous 0.50 mmol/L Bedside Glucose 124 mg/dl Assessment and Plan The patient is a 77-year-old female with a past medical history of diabetes, hypertension, depression, and recently an episode of pneumonia 1 month ago with discharge on 2 L of oxygen, that presents with a one-month history of shortness of breath that has worsened over the last 2 days. 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 - Will continue coverage and could consider procalcitonin in AM - suspect worsening of breathing related to fluid and associated atelectasis - Continue Zosyn and Vanc at this time - Can continue Duonebs SYMONE T2DM: - Hold Metformin and cover with Lantus 16 units HS and SSI Carotid Stenosis: - Continue ASA 81 mg daily and hold Plavix with anticipated thoracentesis HTN: - Lisinopril 40 mg daiy, Norvasc 10 mg daily, and Toprol XL 50 mg BID DVT Prophylaxis: Heparin 5000 units SC Q8H Code Status: FULL RESUSCITATION Disposition: Pending clinical course - in-house thora vs outpatient Continued [facility] stay due to: multiple IV medications needed
[2017-10-07] MEDS: VANCOMYCIN INJ 1,250 MG in SODIUM CHLORIDE 0.9% 250ML 250 ML IV SCH (17:41)
--- NOTE | 2017-10-07 18:29 | Pulmonary Consultation ---
History General Date of Service: Oct 07, 2017. Chief Complaint: shortness of breath, large right pleural effusion Stated Complaint: HCAP HPI The patient is a 77 year old female who presents to [facility] with complaints of HCAP. The patient's primary care provider is Tab Bellamy M.D.. The patient was previously admitted from 08/27 - 09/01 for sepsis secondary to pneumonia. The patient was discharged on supplemental O2 2 L/m. She was also discharged on albuterol HFA inhaler, Pulmicort inhaler, and levofloxacin 750 mg for a total seven days of treatment. Since her discharge she has been doing relatively well until the last 2-3 days when she had increased shortness of breath. She noticed that she started having some feeling of chest fullness as well as an increased wheeze and shortness of breath. On admission the chest x- ray showed that there was a dense right bibasilar consolidation as well as a right pleural effusion. He was also evidence of trace left pleural effusion. Due to her recent admission, the patient was on levofloxacin, Zosyn, vancomycin. WBC this admission is 8.14. Patient is afebrile. She denies any significant sputum production. CT scan of the chest does reveal some right middle lobe and right lower lobe atelectasis. She also has prominent mediastinal lymph nodes which may be reactive. The patient does continue to smoke daily and has a 50+ pack year history. Aside from fatigue and some shortness of breath the patient denies any fever, chills, sweats, rigors. She does note that occasionally she has night sweats. She has no chest pain or tightness. She has no nausea or vomiting. She is morbidly obese and has a protuberant abdomen and has difficulty positioning herself in bed. She has no asymmetrical edema of lower extremities. She has no other acute complaints. Review of Systems A total of 12 systems was reviewed and is negative other than as listed above in the HPI All Other Symptoms All Other Systems: Reviewed and Negative Past Medical History Past Medical History: Medical Problems: (1) Depression (2) DM (diabetes mellitus) (3) HCAP (healthcare-associated pneumonia) (4) HTN (hypertension) (5) Kidney disease (6) TIA (transient ischemic attack) Past Surgical History: Surgical Problems: (1) Hx of tonsillectomy Family History Diabetes mellitus Heart disease Hypertension Social History Hx Tobacco Use In Past Year?: No (Quit 2011) Smoking Status: Former Smoker Alcohol: never Drug Use: none Marital status: single, Housing status: lives with family Occupational Status: retired Immunizations History of Influenza Vaccine: Yes Influenza Vaccine Date: Aug 09, 2011 History of Tetanus Vaccine?: Yes Tetanus Immunization Date: Apr 08, 2007 History of Pneumococcal: Yes Pneumococcal Date: Apr 08, 2012 History of Hepatitis B Vaccine: No History of MDRO History of MDRO: No Allergies Coded Allergies: Bacitracin (Verified Allergy, Unknown, UNKNOWN, 10/06/17) Polymyxin B (Verified Allergy, Unknown, UNKNOWN, 10/06/17) Adhesives (Verified Adverse Reaction, Mild, RED AND ITCHY, 10/06/17) Current Medications Reported Home Medications Medications Dose Route/Sig Max Daily Dose Days Date Category Dose Instructions Toprol Xl (Metoprolol Succinate) 50 Mg Tabcr 50 Mg PO BID 09/01/17 Rx Ventolin Hfa (Albuterol) 60 Puffs/5400 Mcg Aers 2 Puffs INH Q4H 14 09/01/17 Rx Clopidogrel (Clopidogrel Bisulfate) 75 Mg Tab 75 Mg PO DAILY 08/26/17 Reported Vitamin D3 (Cholecalciferol) 2,000 Unit Tab 2,000 Units PO DAILY 90 07/22/17 Reported Lantus (Insulin Glargine) 100 Unit/Ml Inj 16 Units SC QPM 07/22/17 Reported Novolog Flexpen (Insulin Aspart) 100 Units/Ml Inj 6-8 Units SQ TIDM 07/22/17 Reported Effexor Extended Rel (Venlafaxine Hcl) 150 Mg Cap 150 Mg PO QAM 03/19/16 Reported 225MG TOTAL Risperdal (Risperidone) 3 Mg Tab 3 Mg PO HS 04/20/15 Reported Aspirin Ec (Aspirin) 81 Mg Tab 81 Mg PO QAM 04/20/15 Reported Zestril (Lisinopril) 40 Mg Tab 40 Mg PO QAM 06/20/14 Reported Effexor Xr (Venlafaxine Hcl) 75 Mg Cap 75 Mg PO QAM 06/20/14 Reported 225MG TOTAL Norvasc (Amlodipine Besylate) 10 Mg Tab 10 Mg PO QAM 06/20/14 Reported Glucophage (Metformin Hcl) 500 Mg Tab 500 Mg PO BIDM 04/05/12 Reported PT NOT TAKING UNTIL FURTHER NOTICE. PT CALLING THE DR ROOT 10/08/17 FOR INSTRUCTIONS. Physical Physical Exam Vital Signs: Date Time Temp Pulse Resp B/P (MAP) Pulse Ox O2 Delivery O2 Flow Rate FiO2 10/07/17 16:00 Nasal Cannula 4.0 10/07/17 16:00 36.5 75 18 137/72 (93) 93 Nasal Cannula 2.0 10/07/17 15:09 70 16 93 Nasal Cannula 4.0 10/07/17 12:00 Nasal Cannula 4.0 10/07/17 11:31 36.6 77 18 163/73 (103) 92 4.0 10/07/17 11:16 78 16 92 Nasal Cannula 3.0 10/07/17 08:12 84 163/76 (105) 10/07/17 08:00 Nasal Cannula 4.0 10/07/17 07:44 70 16 86 Nasal Cannula 3.0 10/07/17 07:35 36.8 73 18 170/79 (109) 91 3.0 10/07/17 05:06 19 170/73 (105) 95 Nasal Cannula 3.0 10/07/17 03:10 36.4 78 20 183/90 90 Nasal Cannula 3.0 10/07/17 02:41 79 26 150/89 91 10/07/17 02:10 70 30 157/63 91 Room Air 10/07/17 00:49 71 28 176/81 90 Nasal Cannula 3.0 10/07/17 00:47 73 10/06/17 22:36 72 30 169/67 90 Nasal Cannula 3.0 10/06/17 21:09 95 Nasal Cannula 3.0 10/06/17 21:00 82 10/06/17 20:57 95 Nasal Cannula 3.0 10/06/17 20:46 36.7 93 24 203/79 62 Room Air Weight in Kilograms: 89.6 GENERAL : No acute distress. However, she does appear short of breath EYES: No icterus, gaze conjugate. PERRL NOSE: No evidence of epistaxis. Nasal cannula in place MOUTH: No lesions or candidiasis. Tongue midline NECK: Supple. No stridor. Positive carotid bruits LUNGS: Decreased breath sounds at the right base to mid lung field. Diminished breath sounds globally HEART: Regular, rate controlled ABDOMEN: Soft, NT, ND, BS Present. Protuberant EXTREMITIES: No LE edema, pedal pulses intact NEURO: [facility] Labs Results Past 24 Hours Test 10/06/17 21:21 10/06/17 21:33 10/06/17 22:14 10/07/17 07:38 Range/Units White Blood Count 8.14 4.8-10.8 K/uL Red Blood Count 4.19 4.2-5.4 M/uL Hemoglobin 11.2 12.0-16.0 g/dL Hematocrit 35.1 37-47 % Mean Corpuscular Volume 83.8 80-100 fL Mean Corpuscular Hemoglobin 26.7 25-34 pg Mean Corpuscular Hemoglobin Concent 31.9 32-36 g/dl Platelet Count 342 130-400 K/uL Mean Platelet Volume 9.9 7.4-10.4 fL Neutrophils (%) (Auto) 80.3 % Lymphocytes (%) (Auto) 10.1 % Monocytes (%) (Auto) 7.2 % Eosinophils (%) (Auto) 1.7 % Basophils (%) (Auto) 0.2 % Neutrophils # (Auto) 6.53 1.4-6.5 K/uL Lymphocytes # (Auto) 0.82 1.2-3.4 K/uL Monocytes # (Auto) 0.59 0.11-0.59 K/uL Eosinophils # (Auto) 0.14 0-0.5 K/uL Basophils # (Auto) 0.02 0-0.2 K/uL RDW Standard Deviation 47.9 36.4-46.3 fL RDW Coefficient of Variation 15.8 11.5-14.5 % Immature Granulocyte % (Auto) 0.5 % Immature Granulocyte # (Auto) 0.04 0.00-0.02 K/uL Nucleated RBC Absolute Count (auto) 0.04 0-0 K/uL Nucleated Red Blood Cells % 0.4 % Prothrombin Time 11.8 9.0-12.0 SECONDS Prothromb Time International Ratio 1.1 0.9-1.1 Activated Partial Thromboplast Time 31.2 21.0-31.0 SECONDS Partial Thromboplastin Ratio 1.2 Sodium Level 136 136-145 mmol/L Potassium Level 4.4 3.5-5.1 mmol/L Chloride Level 97 98-107 mmol/L Carbon Dioxide Level 37 21-32 mmol/L Anion Gap 2.0 3-11 mmol/L Blood Urea Nitrogen 23 7-18 mg/dl Creatinine 0.79 0.60-1.20 mg/dl Est Creatinine Clear Calc Drug Dose 57.4 ml/min Estimated GFR () 82.5 Estimated GFR (Non- 71.2 BUN/Creatinine Ratio 28.4 10-20 Random Glucose 101 70-99 mg/dl Calcium Level 9.0 8.5-10.1 mg/dl Total Bilirubin 0.2 0.2-1 mg/dl Aspartate Amino Transf (AST/SGOT) 11 15-37 U/L Alanine Aminotransferase (ALT/SGPT) 20 12-78 U/L Alkaline Phosphatase 62 45-117 U/L Total Creatine Kinase 55 26-192 U/L Creatine Kinase MB 2.8 0.5-3.6 ng/ml Creatine Kinase MB Ratio 5.1 0-3.0 Troponin I 0.020 0-0.045 ng/ml Pro-B-Type Natriuretic Peptide 464 0-1800 pg/ml Total Protein 7.1 6.4-8.2 gm/dl Albumin 2.9 3.4-5.0 gm/dl Globulin 4.2 2.5-4.0 gm/dl Albumin/Globulin Ratio 0.7 0.9-2 Arterial Blood pH 7.35 7.35-7.45 Arterial Blood Partial Pressure CO2 64 35-46 mmHg Arterial Blood Partial Pressure O2 66 80-95 mm/Hg Arterial Blood HCO3 35 19-24 mmol/L Arterial Blood Oxygen Saturation 89.5 90-95 % Arterial Blood Base Excess 7.3 -9-1.8 mEq/L Arterial Blood Gas Delivery 3 L Arian Test POS POS Bedside Lactic Acid Venous 0.50 0.90-1.70 mmol/L Bedside Glucose 124 70-90 mg/dl Test 10/07/17 11:53 10/07/17 16:39 Range/Units Bedside Glucose 137 117 70-90 mg/dl Microbiology Results 10/06/17 Blood Culture, Received Pending 10/06/17 Blood Culture, Received Pending 10/07/17 MRSA DNA Surveillance Screen - Final, Complete Specimen Negative for MRSA by DNA Probe Diagnostic Radiology (CHEST) THORAX WITHOUT CT DOSE: 595.88 mGy.cm HISTORY: Short of breath. recurrent pneumonia TECHNIQUE: Multiaxial CT images of the chest were performed without contrast. A dose lowering technique was utilized adhering to the principles of ALARA. COMPARISON: Chest CTA 07/22/2017. FINDINGS: Interval development of a moderate to large right pleural effusion. This results in compressive atelectasis of the posterior aspects of the right upper lobe and right lower lobe. No pneumothorax. Nodular septal thickening with scattered groundglass airspace opacities suggestive of pulmonary edema. There are few small nodular opacities within the left lower lobe demonstrating a groundglass halo. This favors a component of the pulmonary edema or a mild infectious change. Central airways are patent. No suspicious lytic or blastic osseous lesions. No acute fractures within the visualized osseous structures. The visualized liver and spleen are unremarkable. Mild bilateral adrenal gland thickening, unchanged. A few borderline enlarged. Lymph nodes which have slightly increased in size. Normal caliber thoracic aorta. The heart is mildly enlarged. No significant pericardial effusion. IMPRESSION: 1. Interval development of a moderate to large right pleural effusion. 2. Mild cardiomegaly with mild pulmonary edema. 3. Prominent mediastinal lymph nodes which may be reactive. 4. Small nodular opacities within the left lower lobe demonstrating a groundglass halo. This could be due to pulmonary edema or mild infectious change. Electronically signed by: Willam Reyes M.D. 10/07/2017 8:11 AM SINGLE VIEW CHEST CLINICAL HISTORY: Dyspnea. FINDINGS: An AP, portable, upright chest radiograph is compared to study dated 08/30/2017. The examination is degraded by portable technique and patient rotation. The heart is top normal for projection and there is atherosclerotic calcification of the thoracic aorta. There is prominence of the central pulmonary vessels. There is dense right basilar airspace consolidation with a right pleural effusion. A small left pleural effusion is noted. No pneumothorax is seen. The skeletal structures are osteopenic. The bony thorax is grossly intact. Calcific tendinopathy is noted in the left shoulder. IMPRESSION: 1. There is dense right bibasilar consolidation with associated right pleural effusion. The appearance suggests pneumonia. Clinical correlation will be required and radiographic follow-up to resolution is recommended. 2. A trace left pleural effusion is identified. 3. Cardiomegaly with prominence of the central pulmonary vessels. Cortical clinically for evidence of mild congestive failure. Electronically signed by: Sebastian Aguilar M.D. 10/06/2017 9:14 PM Impression Assessment and Plan LARGE RIGHT PLEURAL EFFUSION * Patient would most likely benefit from thoracentesis * Patient currently is on Plavix (clopidogrel) with last dose 10/07/17 am * We'll continue monitoring the patient and family are aware that we will need to wait for thoracentesis secondary to recent Plavix * In the event the patient is ready for discharge prior to thoracentesis, can bring her back for outpatient procedure * No prior history of pleural effusion per the patient QUESTION OF HCAP * Patient started on broad-spectrum antibiotics * Question of aspiration component * Patient is afebrile with no elevation of white count * Check Pro calcitonin * Most likely atelectasis versus pneumonia * Patient was started on Zosyn and vancomycin - de-escalate as appropriate CAROTID STENOSIS * Patient placed on clopidogrel per Dr. Mcgregor due to 80% stenosis of bilateral carotid arteries * Clopidogrel has been held for possible thoracentesis * Continue aspirin 81 mg daily * Carotid bruits appreciated bilaterally * Patient and family aware that clopidogrel has been held for possible procedure DVT PROPHYLAXIS * Probable thoracentesis in the next few days * Okay to continue with heparin 5000 units subcutaneously every 8 hours * Recommend TEDs/SCDs * Ambulate as tolerated Thank you for including us in the care of this patient. Please refer to Dr. Carranza's addendum for further recommendations Physician Supervision Note: I was present with Sebastian Stein PA-C during the history and exam. I discussed the case with his and agree with the findings and plan as documented in the note. Any exceptions or clarifications are listed here: 77 year old female with h/o DM, recent pneumonia (right upper lobe), active smoker, returned to the hospital for increasing shortness of breath and new onset large left pleural effusion. Possibly para-pneumonic effusion. Doubt empyema She is not symptomatic at rest. Will plan for thoracentesis, but meanwhile will hold the Plavix Continue Abx Documented By: Bonifacio Carranza MD
[2017-10-07] MEDS: RISPERIDONE 3 MG TAB PO SCH (20:55)
[2017-10-07] MEDS: INSULIN GLARGINE SOLOSTAR 100 UNITS/ML 3 ML PEN SC SCH (21:05)
[2017-10-08] VITALS (12 sets, daily range): BP systolic 138–173; BP diastolic 63–84; PULSE 62–94; TEMP 36.4–36.8; O2SAT 90–99
[2017-10-08] MEDS: PIPERACILL/TAZOBAC IV 4.5 GM in DEXTROSE 5% 100ML IV SCH ×3 (04:00→20:05)
[2017-10-08] MEDS: HEPARIN SOD 5000 UNIT/0.5 ML CARP SQ SCH ×3 (05:57→21:30)
[2017-10-08 06:23] LABS: HEMOGLOBIN 10.7 g/dL (12.0-16.0); MEAN CELL VOLUME 84.7 fL (80-100); MEAN CORPUSCULAR HEMOGLOBIN 25.9 pg (25-34); MEAN CORPUSCULAR HGB CONC 30.6 g/dl (32-36); MEAN PLATELET VOLUME 9.9 fL (7.4-10.4); PLATELET COUNT 334 K/uL (130-400); RED CELL DISTRIBUTION WIDTH CV 15.7 % (11.5-14.5); RED CELL DISTRIBUTION WIDTH SD 48.4 fL (36.4-46.3); WHITE BLOOD COUNT 6.36 K/uL (4.8-10.8)
[2017-10-08 06:50] LABS: CALCIUM 8.7 mg/dl (8.5-10.1); CREATININE 0.89 mg/dl (0.60-1.20); POTASSIUM 4.5 mmol/L (3.5-5.1)
[2017-10-08 07:25] LABS: HEMOGLOBIN A1C 6.1 % (4.5-5.6)
[2017-10-08] MEDS: ASPIRIN 81 MG ECTAB PO SCH (07:27)
[2017-10-08] MEDS: VENLAFAXINE HCL XR 75 MG CAPXR PO SCH (07:27)
[2017-10-08] MEDS: VENLAFAXINE HCL XR 150 MG CAPXR PO SCH (07:27)
[2017-10-08] MEDS: LISINOPRIL 40 MG TAB PO SCH (07:28)
[2017-10-08] MEDS: METOPROLOL SUCC 50MG EXT REL TAB PO SCH ×2 (07:28→21:24)
[2017-10-08] MEDS: AMLODIPINE BESYLATE 5 MG TAB PO SCH (07:28)
[2017-10-08] MEDS: VANCOMYCIN INJ 1,250 MG in SODIUM CHLORIDE 0.9% 250ML 250 ML IV SCH (07:32)
[2017-10-08] MEDS: POLYETHYLENE (MIRALAX) 17 GM PACK PO PRN (07:32)
[2017-10-08] MEDS: ALBUT/IPRATROP 3MG/0.5MG NEB 3 ML VIAL INH SCH ×4 (07:43→20:03)
[2017-10-08] MEDS: INSULIN ASPART 100 UNITS/ML 3 ML PEN SC SCH ×4 (08:09→21:00)
--- NOTE | 2017-10-08 14:43 | Hospitalist Progress Note ---
Hospitalist Progress Note Date of Service Oct 08, 2017. (Britni Tavarez PA-C) Subjective Pt evaluation today including: conversation w/ patient, conversation w/ family , physical exam, chart review, lab review, review of studies, review of inpatient medication list Patient seen and evaluated. No acute events overnight. Telemetry unremarkable with NSR. Patient is sitting at bedside chair and no respiratory distress but still requiring 4L. Compared to exam yesterday breathing looks improved however exam yesterday she was laying in bed. Procalcitonin negative and WBC WNL and remains afebrile. Possibly somewhat improving on antibiotics but suspect that the underlying issue is not infectious. Plavix is on hold and plan for likely thoracentesis. Would like plan on in- house thora. Constitutional: No fever, No chills Respiratory: + cough, + dyspnea on exertion, No sputum, No dyspnea at rest Cardiovascular: No chest pain Abdomen: No pain, No nausea, No vomiting, No diarrhea, No constipation Heme: No abnormal bleeding/bruising Skin: No rash (Britni Tavarez PA-C) Medications Current Inpatient Medications Medications (Trade) Dose Ordered Sig/Jakub Route Start Time Stop Time Status Last Admin Dose Admin Heparin Sodium (Porcine) (Heparin Sq 5000 Unit/0.5ml) 5,000 unit Q8 SQ 10/07/17 06:00 11/06/17 05:59 10/08/17 13:53 5,000 UNIT Acetaminophen (Tylenol Tab) 650 mg Q4H PRN PO 10/07/17 01:45 11/06/17 01:44 Magnesium Hydroxide (Milk Of Magnesia Susp) 30 ml Q12H PRN PO 10/07/17 01:45 11/06/17 01:44 Ondansetron HCl (Zofran Inj) 4 mg Q6H PRN IV 10/07/17 01:45 11/06/17 01:44 Nitroglycerin (Nitrostat Tab) 0.4 mg UD PRN SL 10/07/17 01:45 11/06/17 01:44 Polyethylene (Miralax Powder Packet) 17 gm DAILY PRN PO 10/07/17 01:45 11/06/17 01:44 10/08/17 07:32 17 GM Insulin Aspart (novoLOG ASPART) SLIDING SCALE If C... ACHS SC 10/07/17 06:30 11/06/17 06:59 10/08/17 12:19 3 UNITS Glucose (Glucose 40% Gel) 15-30 GRAMS 15 GRAMS... UD PRN PO 10/07/17 01:45 11/06/17 01:44 Glucose (Glucose Chew Tab) 4-8 Tablets 4 Tabl... UD PRN PO 10/07/17 01:45 11/06/17 01:44 Dextrose (Dextrose 50% 50ML Syringe) 25-50ML OF 50% DW IV FOR... UD PRN IV 10/07/17 01:45 11/06/17 01:44 Glucagon (Glucagon Inj) 1 mg UD PRN SQ 10/07/17 01:45 11/06/17 01:44 Amlodipine Besylate (Norvasc Tab) 10 mg QAM PO 10/07/17 09:00 11/06/17 08:59 10/08/17 07:28 10 MG Aspirin (Ecotrin Tab) 81 mg QAM PO 10/07/17 09:00 11/06/17 08:59 10/08/17 07:27 81 MG Clopidogrel Bisulfate (plAVix TAB) 75 mg DAILY PO 10/07/17 09:00 11/06/17 08:59 Future Hold 10/07/17 08:15 75 MG Insulin Glargine (Lantus Solostar Pen) 16 units QPM SC 10/07/17 21:00 11/06/17 20:59 10/07/17 21:05 16 UNITS Lisinopril (Zestril Tab) 40 mg QAM PO 10/07/17 09:00 11/06/17 08:59 10/08/17 07:28 40 MG Metoprolol Succinate (Toprol Xl Tab) 50 mg BID PO 10/07/17 09:00 11/06/17 08:59 10/08/17 07:28 50 MG Risperidone (Risperdal Tab) 3 mg HS PO 10/07/17 21:00 11/06/17 20:59 10/07/17 20:55 3 MG Venlafaxine HCl (effeXOR EXTENDED REL CAP) 150 mg QAM PO 10/07/17 09:00 11/06/17 08:59 10/08/17 07:27 150 MG Venlafaxine HCl (effeXOR EXTENDED REL CAP) 75 mg QAM PO 10/07/17 09:00 11/06/17 08:59 10/08/17 07:27 75 MG Albuterol/ Ipratropium (Duoneb) 3 ml QIDR INH 10/07/17 08:00 11/06/17 07:59 10/08/17 11:22 3 ML Piperacillin Sod/ Tazobactam Sod 4.5 gm/Dextrose 120 ml @ 30 mls/hr Q8H IV 10/07/17 04:00 10/14/17 03:59 10/08/17 11:57 30 MLS/HR Piperacillin Sod/ Tazobactam Sod (Consult) 1 ea UD PRN N/A 10/07/17 04:00 11/06/17 03:59 (Britni Tavarez PA-C) Objective Vital Signs Date Time Temp Pulse Resp B/P (MAP) Pulse Ox O2 Delivery O2 Flow Rate FiO2 10/08/17 11:59 Nasal Cannula 4.0 10/08/17 11:27 36.4 81 18 155/84 (107) 91 10/08/17 11:22 79 16 91 Nasal Cannula 4.0 10/08/17 07:47 36.4 94 20 173/79 (110) 99 10/08/17 07:43 79 16 95 Nasal Cannula 4.0 10/08/17 07:40 Nasal Cannula 4.0 10/08/17 04:09 36.4 66 18 145/68 (93) 94 Nasal Cannula 4.0 10/08/17 04:00 Nasal Cannula 4.0 10/08/17 00:08 36.7 62 18 138/75 (96) 90 Nasal Cannula 4.0 10/08/17 00:00 Nasal Cannula 4.0 10/07/17 20:07 36.6 69 18 151/73 (99) 90 Nasal Cannula 4.0 10/07/17 20:03 79 16 93 Nasal Cannula 4.0 10/07/17 20:00 Nasal Cannula 4.0 10/07/17 16:00 Nasal Cannula 4.0 10/07/17 16:00 36.5 75 18 137/72 (93) 93 Nasal Cannula 2.0 10/07/17 15:09 70 16 93 Nasal Cannula 4.0 (Britni Tavarez PA-C) Physical Exam General Appearance: WD/WN, no apparent distress, + obese Eyes: sclerae normal ENT: hearing grossly normal Neck: supple, no JVD, trachea midline Respiratory/Chest: no respiratory distress, no accessory muscle use, + decreased breath sounds (R mid-base of lungs - good air flow in RUL; L lung boyd clear) Cardiovascular: regular rate, rhythm Abdomen: normal bowel sounds, non tender, soft Neurologic/Psychiatric: alert, oriented x 3 Skin: normal color, warm/dry (Britni Tavarez, TYRELL) Laboratory Results Last 24 Hours Test 10/07/17 16:39 10/07/17 20:28 10/08/17 05:47 10/08/17 07:20 Bedside Glucose 117 mg/dl 121 mg/dl 134 mg/dl White Blood Count 6.36 K/uL Red Blood Count 4.13 M/uL Hemoglobin 10.7 g/dL Hematocrit 35.0 % Mean Corpuscular Volume 84.7 fL Mean Corpuscular Hemoglobin 25.9 pg Mean Corpuscular Hemoglobin Concent 30.6 g/dl RDW Standard Deviation 48.4 fL RDW Coefficient of Variation 15.7 % Platelet Count 334 K/uL Mean Platelet Volume 9.9 fL Sodium Level 137 mmol/L Potassium Level 4.5 mmol/L Chloride Level 98 mmol/L Carbon Dioxide Level 40 mmol/L Anion Gap -1.0 mmol/L Blood Urea Nitrogen 16 mg/dl Creatinine 0.89 mg/dl Est Creatinine Clear Calc Drug Dose 50.9 ml/min Estimated GFR () 71.4 Estimated GFR (Non- 61.6 BUN/Creatinine Ratio 17.5 Random Glucose 103 mg/dl Estimated Average Glucose 128 mg/dl Hemoglobin A1c 6.1 % Calcium Level 8.7 mg/dl Procalcitonin < 0.05 ng/ml Test 10/08/17 11:36 Bedside Glucose 131 mg/dl (Britni Tavarez PA-C) Assessment and Plan The patient is a 77-year-old female with a past medical history of diabetes, hypertension, depression, and recently an episode of pneumonia 1 month ago with discharge on 2 L of oxygen, that presents with a one-month history of shortness of breath that has worsened over the last 2 days. Acute on Chronic Hypoxic Respiratory Failure 2/2 Pleural Effusion: Para- Pneumonic vs Malignant - Continue supplemental O2 and wean if tolerated; continue aspiration precautions but no overt signs of bedside swallow eval - Echo from previous admission reviewed - no mention of diastolic dysfunction and EF 60-70% - Given past smoking history this is concerning for underlying malignancy vs para-pneumonic but given acute nature following recent PNA could easily be for infectious related - Hold on Lasix at this time as suspect minimal contribution to overall picture given the one sided nature of the effusion - Pulmonary following - continue to hold Plavix and plan for upcoming thoracentesis Possible HCAP: - Patient remains afebrile and without leukocytosis - procalcitonin negative - Continue Zosyn at this time as clinically she appears to be improving but this may be more from sitting up and better lung expansion as her O2 requirements are still more than baseline - Can continue Duonebs JAKUB T2DM: - Hold Metformin and cover with Lantus 16 units HS and SSI Carotid Stenosis: - Continue ASA 81 mg daily and hold Plavix with anticipated thoracentesis HTN: - Lisinopril 40 mg daily, Norvasc 10 mg daily, and Toprol XL 50 mg BID DVT Prophylaxis: Heparin 5000 units SC Q8H Code Status: FULL RESUSCITATION Disposition: Pending clinical course - in-house thora vs outpatient - PT/OT evaluations Continued [facility] stay due to: multiple IV medications needed Discharge planning: home (Britni Tavarez PAKarinC) Attending Attestation: Pt seen/examined, chart reviewed, care plan d/w EDDI Tavarez. I agree w/ the francois components of her documentation. Pt w/o complaints during my visit. Reports 6# of weight loss since her July admission but this was intentional. Has been eating fine. No fever but some chronic sweats. No cough. No pleuritic pain. VSS no fever gen - nad heart - RRR lungs - decreased BS 3/4 way up right posterior hemithorax, no rales or wheeze, left lung clear abd - soft ext - no edema A/P: 1. acute/chronic hypoxic resp failure - acute component 2nd to large right- sided pleural effusion. 2. right-sided pleural effusion - needs diagnostic/therapeutic thoracentesis but awaiting plavix to exit system. Doubt empyema (no fever, no leukocytosis, no pleurisy). Could be para-pneumonic , malignant, etc. Await tap. 3. ?recurrent pneumonia - agree with Ms. Tavarez - this is doubtful, but remains on antibiotics as precautionary measure. daughter updated at bedside Bi BAILEY MD (Erik Bailey MD)
--- NOTE | 2017-10-08 20:31 | Pulmonology Progress Note ---
Pulmonary Progress Note Date of Service Oct 08, 2017. Attending Dr. Carranza Subjective 77-year-old female with tobacco abuse referred to us for evaluation of large right pleural effusion. Imaging reviewed and patient does have a large effusion. Patient is on clopidogrel for bilateral internal carotid stenosis. Last dose received was 10/07/17. Per standard, clopidogrel will need to be held for five days prior to invasive procedure. Patient and family aware of this. Patient currently is asymptomatic and able to lay flat in bed. She did ambulate out of bed to chair today without difficulty. She's been a substantial amount of time upright in the bedside chair. She is tolerating her diet with no nausea or vomiting or dysphagia. She has no fever, chills, pleuritic pain. No acute complaints Objective Vital Signs - as noted below Laboratory Data - as noted below Physical Exam: General - NAD Eyes - No icterus, gaze conjugate ENT - Mucosa moist, no lesions or candidiasis Neck - Supple, No JVD Lungs - No bronchospasm, rales, or rhonchi. Decreased breath sounds in the right Heart - Regular, rate controlled Abdomen - Soft, NT, ND, BS present Extremities - No edema, pedal pulses intact Neuro - A&OX3 Assessment & Plan LARGE RIGHT PLEURAL EFFUSION * Patient would most likely benefit from thoracentesis * Patient currently is on Plavix (clopidogrel) with last dose 10/07/17 am * Will continue monitoring the patient. Family aware that we will need to wait for thoracentesis secondary to recent Plavix * In the event the patient is ready for discharge prior to thoracentesis, can bring her back for outpatient procedure * No prior history of pleural effusion per the patient QUESTION OF HCAP * Patient started on broad-spectrum antibiotics * Question of aspiration component * Patient is afebrile with no elevation of white count * Pro calcitonin is negative * Most likely atelectasis versus pneumonia * Patient was started on Zosyn and vancomycin - recommend de-escalating abx CAROTID STENOSIS * Patient placed on clopidogrel per Dr. Mcgregor due to 80% stenosis of bilateral carotid arteries * Clopidogrel has been held for possible thoracentesis * Continue aspirin 81 mg daily * Carotid bruits appreciated bilaterally * Patient and family aware that clopidogrel has been held for possible procedure DVT PROPHYLAXIS * Probable thoracentesis in the next few days * Okay to continue with heparin 5000 units subcutaneously every 8 hours * Recommend TEDs/SCDs * Ambulate as tolerated Thank you for including us in the care of this patient. Please refer to Dr. Carranza's addendum for further recommendations Physician Supervision Note: I was present with Sebastian Stein PA-C during the history and exam. I discussed the case with his and agree with the findings and plan as documented in the note. Any exceptions or clarifications are listed here: 77 year old female with h/o DM, recent pneumonia (right upper lobe), active smoker, returned to the hospital for increasing shortness of breath and new onset large left pleural effusion. Possibly para-pneumonic effusion. Doubt empyema She is not symptomatic at rest. Will plan for thoracentesis, but meanwhile will hold the Plavix Continue Abx Documented By: Bonifacio Carranza MD Data Medications: Current Inpatient Medications Medications (Trade) Dose Ordered Sig/Jakub Route Start Time Stop Time Status Last Admin Dose Admin Heparin Sodium (Porcine) (Heparin Sq 5000 Unit/0.5ml) 5,000 unit Q8 SQ 10/07/17 06:00 11/06/17 05:59 10/08/17 13:53 5,000 UNIT Acetaminophen (Tylenol Tab) 650 mg Q4H PRN PO 10/07/17 01:45 11/06/17 01:44 Magnesium Hydroxide (Milk Of Magnesia Susp) 30 ml Q12H PRN PO 10/07/17 01:45 11/06/17 01:44 Ondansetron HCl (Zofran Inj) 4 mg Q6H PRN IV 10/07/17 01:45 11/06/17 01:44 Nitroglycerin (Nitrostat Tab) 0.4 mg UD PRN SL 10/07/17 01:45 11/06/17 01:44 Polyethylene (Miralax Powder Packet) 17 gm DAILY PRN PO 10/07/17 01:45 11/06/17 01:44 10/08/17 07:32 17 GM Insulin Aspart (novoLOG ASPART) SLIDING SCALE If C... ACHS SC 10/07/17 06:30 11/06/17 06:59 10/08/17 17:28 4 UNITS Glucose (Glucose 40% Gel) 15-30 GRAMS 15 GRAMS... UD PRN PO 10/07/17 01:45 11/06/17 01:44 Glucose (Glucose Chew Tab) 4-8 Tablets 4 Tabl... UD PRN PO 10/07/17 01:45 11/06/17 01:44 Dextrose (Dextrose 50% 50ML Syringe) 25-50ML OF 50% DW IV FOR... UD PRN IV 10/07/17 01:45 11/06/17 01:44 Glucagon (Glucagon Inj) 1 mg UD PRN SQ 10/07/17 01:45 11/06/17 01:44 Amlodipine Besylate (Norvasc Tab) 10 mg QAM PO 10/07/17 09:00 11/06/17 08:59 10/08/17 07:28 10 MG Aspirin (Ecotrin Tab) 81 mg QAM PO 10/07/17 09:00 11/06/17 08:59 10/08/17 07:27 81 MG Clopidogrel Bisulfate (plAVix TAB) 75 mg DAILY PO 10/07/17 09:00 11/06/17 08:59 Future Hold 10/07/17 08:15 75 MG Insulin Glargine (Lantus Solostar Pen) 16 units QPM SC 10/07/17 21:00 11/06/17 20:59 10/07/17 21:05 16 UNITS Lisinopril (Zestril Tab) 40 mg QAM PO 10/07/17 09:00 11/06/17 08:59 10/08/17 07:28 40 MG Metoprolol Succinate (Toprol Xl Tab) 50 mg BID PO 10/07/17 09:00 11/06/17 08:59 10/08/17 07:28 50 MG Risperidone (Risperdal Tab) 3 mg HS PO 10/07/17 21:00 11/06/17 20:59 10/07/17 20:55 3 MG Venlafaxine HCl (effeXOR EXTENDED REL CAP) 150 mg QAM PO 10/07/17 09:00 11/06/17 08:59 10/08/17 07:27 150 MG Venlafaxine HCl (effeXOR EXTENDED REL CAP) 75 mg QAM PO 10/07/17 09:00 11/06/17 08:59 10/08/17 07:27 75 MG Albuterol/ Ipratropium (Duoneb) 3 ml QIDR INH 10/07/17 08:00 11/06/17 07:59 10/08/17 20:03 3 ML Piperacillin Sod/ Tazobactam Sod 4.5 gm/Dextrose 120 ml @ 30 mls/hr Q8H IV 10/07/17 04:00 10/14/17 03:59 10/08/17 20:05 30 MLS/HR Piperacillin Sod/ Tazobactam Sod (Consult) 1 ea UD PRN N/A 10/07/17 04:00 11/06/17 03:59 I & O: 24-Hour Column 10/09/17 07:59 Intake Total 580 ml Output Total 300 ml Balance 280 ml Vital Signs: Date Time Temp Pulse Resp B/P (MAP) Pulse Ox O2 Delivery O2 Flow Rate FiO2 10/08/17 20:17 36.8 70 18 151/63 (92) 98 Nasal Cannula 3.0 10/08/17 20:03 82 16 92 Nasal Cannula 2.0 10/08/17 16:00 93 Nasal Cannula 3.0 10/08/17 15:59 36.4 94 18 138/71 (93) 99 Room Air 10/08/17 14:48 80 16 93 Nasal Cannula 4.0 10/08/17 11:59 Nasal Cannula 4.0 10/08/17 11:27 36.4 81 18 155/84 (107) 91 10/08/17 11:22 79 16 91 Nasal Cannula 4.0 10/08/17 07:47 36.4 94 20 173/79 (110) 99 10/08/17 07:43 79 16 95 Nasal Cannula 4.0 10/08/17 07:40 Nasal Cannula 4.0 10/08/17 04:09 36.4 66 18 145/68 (93) 94 Nasal Cannula 4.0 10/08/17 04:00 Nasal Cannula 4.0 10/08/17 00:08 36.7 62 18 138/75 (96) 90 Nasal Cannula 4.0 10/08/17 00:00 Nasal Cannula 4.0 Laboratory Results: Last 24 Hours Test 10/07/17 20:28 10/08/17 05:47 10/08/17 07:20 10/08/17 11:36 Bedside Glucose 121 mg/dl 134 mg/dl 131 mg/dl White Blood Count 6.36 K/uL Red Blood Count 4.13 M/uL Hemoglobin 10.7 g/dL Hematocrit 35.0 % Mean Corpuscular Volume 84.7 fL Mean Corpuscular Hemoglobin 25.9 pg Mean Corpuscular Hemoglobin Concent 30.6 g/dl RDW Standard Deviation 48.4 fL RDW Coefficient of Variation 15.7 % Platelet Count 334 K/uL Mean Platelet Volume 9.9 fL Sodium Level 137 mmol/L Potassium Level 4.5 mmol/L Chloride Level 98 mmol/L Carbon Dioxide Level 40 mmol/L Anion Gap -1.0 mmol/L Blood Urea Nitrogen 16 mg/dl Creatinine 0.89 mg/dl Est Creatinine Clear Calc Drug Dose 50.9 ml/min Estimated GFR () 71.4 Estimated GFR (Non- 61.6 BUN/Creatinine Ratio 17.5 Random Glucose 103 mg/dl Estimated Average Glucose 128 mg/dl Hemoglobin A1c 6.1 % Calcium Level 8.7 mg/dl Procalcitonin < 0.05 ng/ml Test 10/08/17 16:29 Bedside Glucose 124 mg/dl
[2017-10-08] MEDS: RISPERIDONE 3 MG TAB PO SCH (21:23)
[2017-10-08] MEDS: INSULIN GLARGINE SOLOSTAR 100 UNITS/ML 3 ML PEN SC SCH (21:29)
[2017-10-09] VITALS (14 sets, daily range): BP systolic 127–162; BP diastolic 55–79; PULSE 51–86; TEMP 36.3–36.8; O2SAT 90–99
[2017-10-09] MEDS: PIPERACILL/TAZOBAC IV 4.5 GM in DEXTROSE 5% 100ML IV SCH ×3 (03:53→20:56)
[2017-10-09] MEDS: HEPARIN SOD 5000 UNIT/0.5 ML CARP SQ SCH ×3 (05:44→20:55)
[2017-10-09 06:38] LABS: CREATININE 0.84 mg/dl (0.60-1.20)
[2017-10-09] MEDS: ALBUT/IPRATROP 3MG/0.5MG NEB 3 ML VIAL INH SCH ×4 (07:03→19:01)
[2017-10-09] MEDS: METOPROLOL SUCC 50MG EXT REL TAB PO SCH ×2 (09:09→20:57)
[2017-10-09] MEDS: VENLAFAXINE HCL XR 75 MG CAPXR PO SCH (09:09)
[2017-10-09] MEDS: ASPIRIN 81 MG ECTAB PO SCH (09:09)
[2017-10-09] MEDS: VENLAFAXINE HCL XR 150 MG CAPXR PO SCH (09:09)
[2017-10-09] MEDS: AMLODIPINE BESYLATE 5 MG TAB PO SCH (09:10)
[2017-10-09] MEDS: LISINOPRIL 40 MG TAB PO SCH (09:11)
[2017-10-09] MEDS: INSULIN ASPART 100 UNITS/ML 3 ML PEN SC SCH ×4 (09:12→20:55)
[2017-10-09] MEDS: POLYETHYLENE (MIRALAX) 17 GM PACK PO PRN (09:12)
[2017-10-09] MEDS ORDERED: VANCOMYCIN TROUGH SCH (11:30)
--- NOTE | 2017-10-09 16:47 | Hospitalist Progress Note ---
Hospitalist Progress Note Date of Service Oct 09, 2017. (Britni Tavarez PA-C) Subjective Pt evaluation today including: conversation w/ patient, conversation w/ family , physical exam, chart review, lab review, review of studies, review of inpatient medication list Patient seen and evaluated. No acute events overnight. Continues to report improvement in breathing. No respiratory distress sitting in bedside chair. Sounds to have somewhat better airflow in R lung however still diminished in comparison to L lung field. Still requiring about 3 L NC at this time. Reviewed PTs note that she ambulated 150 feet and needed to stop to rest with sats at 83% requiring 3 minutes to return to 89%. Constitutional: No fever, No chills Respiratory: + dyspnea on exertion, No dyspnea at rest Cardiovascular: No chest pain Abdomen: No pain, No nausea, No vomiting, No diarrhea, No constipation Musculoskeletal: No swelling, No calf pain Heme: No abnormal bleeding/bruising Skin: No rash (Britni Tavarez, DIAZC) Medications Current Inpatient Medications Medications (Trade) Dose Ordered Sig/Jakub Route Start Time Stop Time Status Last Admin Dose Admin Heparin Sodium (Porcine) (Heparin Sq 5000 Unit/0.5ml) 5,000 unit Q8 SQ 10/07/17 06:00 11/06/17 05:59 10/09/17 14:18 5,000 UNIT Acetaminophen (Tylenol Tab) 650 mg Q4H PRN PO 10/07/17 01:45 11/06/17 01:44 Magnesium Hydroxide (Milk Of Magnesia Susp) 30 ml Q12H PRN PO 10/07/17 01:45 11/06/17 01:44 10/09/17 09:12 30 ML Ondansetron HCl (Zofran Inj) 4 mg Q6H PRN IV 10/07/17 01:45 11/06/17 01:44 Nitroglycerin (Nitrostat Tab) 0.4 mg UD PRN SL 10/07/17 01:45 11/06/17 01:44 Polyethylene (Miralax Powder Packet) 17 gm DAILY PRN PO 10/07/17 01:45 11/06/17 01:44 10/09/17 09:12 17 GM Insulin Aspart (novoLOG ASPART) SLIDING SCALE If C... ACHS SC 10/07/17 06:30 11/06/17 06:59 10/09/17 12:24 5 UNITS Glucose (Glucose 40% Gel) 15-30 GRAMS 15 GRAMS... UD PRN PO 10/07/17 01:45 11/06/17 01:44 Glucose (Glucose Chew Tab) 4-8 Tablets 4 Tabl... UD PRN PO 10/07/17 01:45 11/06/17 01:44 Dextrose (Dextrose 50% 50ML Syringe) 25-50ML OF 50% DW IV FOR... UD PRN IV 10/07/17 01:45 11/06/17 01:44 Glucagon (Glucagon Inj) 1 mg UD PRN SQ 10/07/17 01:45 11/06/17 01:44 Amlodipine Besylate (Norvasc Tab) 10 mg QAM PO 10/07/17 09:00 11/06/17 08:59 10/09/17 09:10 10 MG Aspirin (Ecotrin Tab) 81 mg QAM PO 10/07/17 09:00 11/06/17 08:59 10/09/17 09:09 81 MG Clopidogrel Bisulfate (plAVix TAB) 75 mg DAILY PO 10/07/17 09:00 11/06/17 08:59 Future Hold 10/07/17 08:15 75 MG Insulin Glargine (Lantus Solostar Pen) 16 units QPM SC 10/07/17 21:00 11/06/17 20:59 10/08/17 21:29 16 UNITS Lisinopril (Zestril Tab) 40 mg QAM PO 10/07/17 09:00 11/06/17 08:59 10/09/17 09:11 40 MG Metoprolol Succinate (Toprol Xl Tab) 50 mg BID PO 10/07/17 09:00 11/06/17 08:59 10/09/17 09:09 50 MG Risperidone (Risperdal Tab) 3 mg HS PO 10/07/17 21:00 11/06/17 20:59 10/08/17 21:23 3 MG Venlafaxine HCl (effeXOR EXTENDED REL CAP) 150 mg QAM PO 10/07/17 09:00 11/06/17 08:59 10/09/17 09:09 150 MG Venlafaxine HCl (effeXOR EXTENDED REL CAP) 75 mg QAM PO 10/07/17 09:00 11/06/17 08:59 10/09/17 09:09 75 MG Albuterol/ Ipratropium (Duoneb) 3 ml QIDR INH 10/07/17 08:00 11/06/17 07:59 10/09/17 15:36 3 ML Piperacillin Sod/ Tazobactam Sod 4.5 gm/Dextrose 120 ml @ 30 mls/hr Q8H IV 10/07/17 04:00 10/14/17 03:59 10/09/17 12:22 30 MLS/HR Piperacillin Sod/ Tazobactam Sod (Consult) 1 ea UD PRN N/A 10/07/17 04:00 11/06/17 03:59 (Britni Tavarez PA-C) Objective Vital Signs Date Time Temp Pulse Resp B/P (MAP) Pulse Ox O2 Delivery O2 Flow Rate FiO2 10/09/17 15:41 36.3 86 18 132/76 (94) 99 10/09/17 15:37 59 14 92 Nasal Cannula 3.0 10/09/17 12:00 Nasal Cannula 3.0 10/09/17 11:38 36.5 66 20 136/78 (97) 95 10/09/17 11:13 60 14 93 Nasal Cannula 3.0 10/09/17 09:07 72 139/79 (99) 10/09/17 08:00 Nasal Cannula 3.0 10/09/17 07:52 36.4 55 20 127/65 (85) 96 10/09/17 07:05 63 14 96 Nasal Cannula 3.0 10/09/17 04:13 36.8 67 16 127/64 (85) 97 Nasal Cannula 3.0 10/09/17 04:00 Nasal Cannula 3.0 10/09/17 00:01 36.5 51 16 153/73 (99) 93 Nasal Cannula 3.0 10/09/17 00:00 Nasal Cannula 3.0 10/08/17 20:17 36.8 70 18 151/63 (92) 98 Nasal Cannula 3.0 10/08/17 20:03 82 16 92 Nasal Cannula 2.0 10/08/17 20:00 98 Nasal Cannula 3.0 (Britni Tavarez PA-C) Physical Exam General Appearance: WD/WN, no apparent distress, + obese Eyes: sclerae normal ENT: hearing grossly normal Neck: supple, no JVD, trachea midline Respiratory/Chest: no respiratory distress, no accessory muscle use, + decreased breath sounds (R mid-base but appears slightly more airflow compared to previous exam) Cardiovascular: regular rate, rhythm Abdomen: normal bowel sounds, non tender, soft Extremities: no pedal edema, no calf tenderness Neurologic/Psychiatric: alert, oriented x 3 Skin: normal color, warm/dry (Britni Tavarez, TYRELL) Laboratory Results Last 24 Hours Test 10/08/17 20:46 10/09/17 05:33 10/09/17 11:53 Bedside Glucose 134 mg/dl 153 mg/dl Creatinine 0.84 mg/dl Est Creatinine Clear Calc Drug Dose 53.9 ml/min Estimated GFR () 76.6 Estimated GFR (Non- 66.1 (Britni Tavarez PA-C) Assessment and Plan The patient is a 77-year-old female with a past medical history of diabetes, hypertension, depression, and recently an episode of pneumonia 1 month ago with discharge on 2 L of oxygen, that presents with a one-month history of shortness of breath that has worsened over the last 2 days. Acute on Chronic Hypoxic Respiratory Failure 2/2 Pleural Effusion: Para- Pneumonic vs Malignant - Continue supplemental O2 and wean if tolerated; continue aspiration precautions but no overt signs on bedside swallow eval - Echo from previous admission reviewed - no mention of diastolic dysfunction and EF 60-70% - Given past smoking history this is concerning for underlying malignancy vs para-pneumonic as given acute nature following recent PNA could easily be for infectious related - Hold on Lasix at this time as suspect minimal contribution to overall picture given the one sided nature of the effusion - Significantly hypoxic with ambulation at 150 ft requiring approx. 3 minutes of rest to reach 89% - Pulmonary following - continue to hold Plavix and plan for upcoming thoracentesis Possible HCAP: - Patient remains afebrile and without leukocytosis - procalcitonin negative - Continue Zosyn at this time as clinically she appears to be improving but this may be more from sitting up and better lung expansion as her O2 requirements are still more than baseline - Can continue Duonebs [facility] T2DM: - Hold Metformin and cover with Lantus 16 units HS and SSI - Glucose well-controlled during admission Carotid Stenosis: - Continue ASA 81 mg daily and hold Plavix with anticipated thoracentesis HTN: - Lisinopril 40 mg daily, Norvasc 10 mg daily, and Toprol XL 50 mg BID DVT Prophylaxis: Heparin 5000 units SC Q8H Code Status: FULL RESUSCITATION Disposition: Pending clinical course - in-house thora vs outpatient - PT/OT evaluations - plan to return home Continued [facility] stay due to: multiple IV medications needed Discharge planning: home (Britni Tavarez, PA-C) Attending Attestation: Pt seen/examined, chart reviewed, care plan d/w EDDI Tavarez. I agree w/ the francois components of her documentation. Tele stable overnight pt w/o any complaints except for [place] VSS no fever gen - nad heart - RRR lungs - decreased BS 3/4 way up right posterior hemithorax with perhaps slight improvement in airation on right; no rales or wheeze, left lung clear abd - soft ext - no edema A/P: 1. acute/chronic hypoxic resp failure - acute component 2nd to large right- sided pleural effusion. Awaiting diagnostic/therapeutic thoracentesis. 2. right-sided pleural effusion - needs diagnostic/therapeutic thoracentesis but awaiting plavix to exit system. Last dose was 10/07. Doubt empyema (no fever, no leukocytosis, no pleurisy). Could be para-pneumonic , malignant, etc. Await tap. 3. ?recurrent pneumonia - she really has no symptoms/signs of pneumonia. If diagnostic thoracentesis does not indicate empyema/infectious effusion then I would consider d/c of all antibiotics. 4. T2DM - controlled. daughter updated at bedside Bi BAILEY MD (Erik Bailey MD)
[2017-10-09] MEDS: INSULIN GLARGINE SOLOSTAR 100 UNITS/ML 3 ML PEN SC SCH (20:55)
[2017-10-09] MEDS: RISPERIDONE 3 MG TAB PO SCH (20:56)
[2017-10-10] VITALS (9 sets, daily range): BP systolic 115–183; BP diastolic 59–81; PULSE 59–86; TEMP 36.4–37; O2SAT 91–97
[2017-10-10] MEDS: PIPERACILL/TAZOBAC IV 4.5 GM in DEXTROSE 5% 100ML IV SCH ×3 (03:50→20:56)
[2017-10-10] MEDS: HEPARIN SOD 5000 UNIT/0.5 ML CARP SQ SCH ×3 (05:57→21:01)
[2017-10-10] MEDS: ALBUT/IPRATROP 3MG/0.5MG NEB 3 ML VIAL INH SCH ×2 (06:59→11:04)
[2017-10-10] MEDS: ASPIRIN 81 MG ECTAB PO SCH (07:57)
[2017-10-10] MEDS: METOPROLOL SUCC 50MG EXT REL TAB PO SCH ×2 (07:57→21:02)
[2017-10-10] MEDS: VENLAFAXINE HCL XR 75 MG CAPXR PO SCH (07:58)
[2017-10-10] MEDS: VENLAFAXINE HCL XR 150 MG CAPXR PO SCH (07:58)
[2017-10-10] MEDS: LISINOPRIL 40 MG TAB PO SCH (07:58)
[2017-10-10] MEDS: AMLODIPINE BESYLATE 5 MG TAB PO SCH (07:58)
[2017-10-10] MEDS: INSULIN ASPART 100 UNITS/ML 3 ML PEN SC SCH ×4 (08:03→21:00)
[2017-10-10 08:34] LABS: CALCIUM 8.9 mg/dl (8.5-10.1); CREATININE 0.87 mg/dl (0.60-1.20)
[2017-10-10] MEDS ORDERED: ALBUTEROL 0.5% NEB SOLN 2.5 MG/0.5 ML VIAL INH PRN (11:15)
[2017-10-10] MEDS: ALBUTEROL HFA 8 GM INHALER INH SCH ×4 (13:25→23:41)
--- NOTE | 2017-10-10 14:34 | Hospitalist Progress Note ---
Hospitalist Progress Note Date of Service Oct 10, 2017. (Britni Tavarez, DIAZC) Subjective Pt evaluation today including: conversation w/ patient, conversation w/ family , physical exam, chart review, lab review, review of studies, review of inpatient medication list Patient seen and evaluated. Looking well and no dyspnea even when laying flat in bed. Per nursing and family later in the day she ambulated the hallways without difficulty. Airflow seems to be improving in R midlung but still diminished in R base. Planning for U/S later this afternoon to evaluate fluid level Has been maintained on home 2 L. Constitutional: No fever, No chills Respiratory: + dyspnea on exertion, No cough, No dyspnea at rest Cardiovascular: No chest pain Abdomen: No pain, No nausea, No vomiting, No diarrhea, No constipation ( Britni Tavarez, DIAZC) Medications Current Inpatient Medications Medications (Trade) Dose Ordered Sig/Jakub Route Start Time Stop Time Status Last Admin Dose Admin Heparin Sodium (Porcine) (Heparin Sq 5000 Unit/0.5ml) 5,000 unit Q8 SQ 10/07/17 06:00 11/06/17 05:59 10/10/17 13:29 5,000 UNIT Acetaminophen (Tylenol Tab) 650 mg Q4H PRN PO 10/07/17 01:45 11/06/17 01:44 Magnesium Hydroxide (Milk Of Magnesia Susp) 30 ml Q12H PRN PO 10/07/17 01:45 11/06/17 01:44 10/09/17 09:12 30 ML Ondansetron HCl (Zofran Inj) 4 mg Q6H PRN IV 10/07/17 01:45 11/06/17 01:44 Nitroglycerin (Nitrostat Tab) 0.4 mg UD PRN SL 10/07/17 01:45 11/06/17 01:44 Polyethylene (Miralax Powder Packet) 17 gm DAILY PRN PO 10/07/17 01:45 11/06/17 01:44 10/09/17 09:12 17 GM Insulin Aspart (novoLOG ASPART) SLIDING SCALE If C... ACHS SC 10/07/17 06:30 11/06/17 06:59 10/10/17 13:29 4 UNITS Glucose (Glucose 40% Gel) 15-30 GRAMS 15 GRAMS... UD PRN PO 10/07/17 01:45 11/06/17 01:44 Glucose (Glucose Chew Tab) 4-8 Tablets 4 Tabl... UD PRN PO 10/07/17 01:45 11/06/17 01:44 Dextrose (Dextrose 50% 50ML Syringe) 25-50ML OF 50% DW IV FOR... UD PRN IV 10/07/17 01:45 11/06/17 01:44 Glucagon (Glucagon Inj) 1 mg UD PRN SQ 10/07/17 01:45 11/06/17 01:44 Amlodipine Besylate (Norvasc Tab) 10 mg QAM PO 10/07/17 09:00 11/06/17 08:59 10/10/17 07:58 10 MG Aspirin (Ecotrin Tab) 81 mg QAM PO 10/07/17 09:00 11/06/17 08:59 10/10/17 07:57 81 MG Clopidogrel Bisulfate (plAVix TAB) 75 mg DAILY PO 10/07/17 09:00 11/06/17 08:59 Future Hold 10/07/17 08:15 75 MG Insulin Glargine (Lantus Solostar Pen) 16 units QPM SC 10/07/17 21:00 11/06/17 20:59 10/09/17 20:55 16 UNITS Lisinopril (Zestril Tab) 40 mg QAM PO 10/07/17 09:00 11/06/17 08:59 10/10/17 07:58 40 MG Metoprolol Succinate (Toprol Xl Tab) 50 mg BID PO 10/07/17 09:00 11/06/17 08:59 10/10/17 07:57 50 MG Risperidone (Risperdal Tab) 3 mg HS PO 10/07/17 21:00 11/06/17 20:59 10/09/17 20:56 3 MG Venlafaxine HCl (effeXOR EXTENDED REL CAP) 150 mg QAM PO 10/07/17 09:00 11/06/17 08:59 10/10/17 07:58 150 MG Venlafaxine HCl (effeXOR EXTENDED REL CAP) 75 mg QAM PO 10/07/17 09:00 11/06/17 08:59 10/10/17 07:58 75 MG Piperacillin Sod/ Tazobactam Sod 4.5 gm/Dextrose 120 ml @ 30 mls/hr Q8H IV 10/07/17 04:00 10/14/17 03:59 10/10/17 12:08 30 MLS/HR Piperacillin Sod/ Tazobactam Sod (Consult) 1 ea UD PRN N/A 10/07/17 04:00 11/06/17 03:59 Albuterol (Ventolin Hfa Inhaler) 2 puffs Q4 INH 10/10/17 12:00 11/09/17 11:59 10/10/17 13:25 2 PUFFS Albuterol Sulfate (Ventolin 0.5% 2.5MG/0.5ML Neb) 2.5 mg Q2H PRN INH 10/10/17 11:15 11/09/17 11:14 (Britni Tavarez, TYRELL) Objective Vital Signs Date Time Temp Pulse Resp B/P (MAP) Pulse Ox O2 Delivery O2 Flow Rate FiO2 10/10/17 12:00 Nasal Cannula 2.0 10/10/17 11:34 36.7 59 20 115/65 (82) 97 10/10/17 08:00 Nasal Cannula 2.0 10/10/17 07:52 86 139/77 (97) 10/10/17 07:32 36.6 74 20 154/76 (102) 92 10/10/17 06:59 61 14 92 Nasal Cannula 2.0 10/10/17 04:09 37.0 71 18 136/59 (84) 95 Nasal Cannula 2.0 10/10/17 04:00 Nasal Cannula 2.0 10/10/17 00:00 Nasal Cannula 2.0 10/09/17 23:05 36.8 61 18 144/55 (84) 94 Nasal Cannula 2.0 Humidified Oxygen 10/09/17 20:00 90 Nasal Cannula 3.0 10/09/17 19:30 36.3 58 22 162/65 (97) 90 Nasal Cannula 2.0 10/09/17 19:03 63 14 96 Nasal Cannula 3.0 10/09/17 16:00 99 Nasal Cannula 3.0 10/09/17 15:41 36.3 86 18 132/76 (94) 99 10/09/17 15:37 59 14 92 Nasal Cannula 3.0 (Britni Tavarez, DIAZC) Physical Exam General Appearance: WD/WN, no apparent distress Respiratory/Chest: no respiratory distress, no accessory muscle use, + decreased breath sounds (R base into mid-lung but continues to have improved air flow), + pertinent finding (L lung boyd diffusely clear) Cardiovascular: regular rate, rhythm Abdomen: normal bowel sounds, non tender, soft Extremities: no pedal edema Neurologic/Psychiatric: alert (Britni Tavarez PA-C) Laboratory Results Last 24 Hours Test 10/09/17 16:33 10/09/17 20:13 10/10/17 07:33 10/10/17 07:50 Bedside Glucose 85 mg/dl 130 mg/dl 93 mg/dl Sodium Level 139 mmol/L Potassium Level 4.0 mmol/L Chloride Level 97 mmol/L Carbon Dioxide Level 39 mmol/L Anion Gap 4.0 mmol/L Blood Urea Nitrogen 14 mg/dl Creatinine 0.87 mg/dl Est Creatinine Clear Calc Drug Dose 51.5 ml/min Estimated GFR () 73.4 Estimated GFR (Non- 63.4 BUN/Creatinine Ratio 15.5 Random Glucose 83 mg/dl Calcium Level 8.9 mg/dl Test 10/10/17 11:29 Bedside Glucose 105 mg/dl (Britni Tavarez, EDDI-C) Assessment and Plan The patient is a 77-year-old female with a past medical history of diabetes, hypertension, depression, and recently an episode of pneumonia 1 month ago with discharge on 2 L of oxygen, that presents with a one-month history of shortness of breath that has worsened over the last 2 days. Acute on Chronic Hypoxic Respiratory Failure 2/2 Pleural Effusion: Para- Pneumonic vs Malignant - Continue supplemental O2 and wean if tolerated; continue aspiration precautions but no overt signs on bedside swallow eval - Echo from previous admission reviewed - no mention of diastolic dysfunction and EF 60-70% - Pulmonary following - continue to hold Plavix and plan for upcoming thoracentesis; going to have U/S to further evaluate fluid levels Possible HCAP: - Patient remains afebrile and without leukocytosis - procalcitonin negative - Continue Zosyn - Will continue home inhalers and keep nebs PRN T2DM: - Hold Metformin and cover with Lantus 16 units HS and SSI - Glucose well-controlled during admission Carotid Stenosis: - Continue ASA 81 mg daily and hold Plavix with anticipated thoracentesis HTN: - Lisinopril 40 mg daily, Norvasc 10 mg daily, and Toprol XL 50 mg BID DVT Prophylaxis: Heparin 5000 units SC Q8H Code Status: FULL RESUSCITATION Disposition: Plan to return home on D/C Continued [facility] stay due to: multiple IV medications needed Discharge planning: home (Britni Tavarez, TYRELL) Attending Attestation: Pt seen/examined, chart reviewed, care plan d/w EDDI Tavarez. I agree w/ the francois components of her documentation. Tele stable overnight Pt feeling well; denies pleuritic pain, cough, anorexia VSS no fever gen - nad heart - RRR lungs - decreased BS still at least 1/2 way up right posterior hemithorax; dullness to percussion same region; left lung clear abd - soft, NT ext - no edema A/P: 1. acute/chronic hypoxic resp failure - acute component 2nd to large right- sided pleural effusion. Awaiting diagnostic/therapeutic thoracentesis. u/s today with 1300cc of fluid on right. marked for the tap. Pulmonary following - possible thoracentesis on Friday am. 2. right-sided pleural effusion - needs diagnostic/therapeutic thoracentesis but awaiting plavix to exit system. Last dose was 10/07. Doubt empyema (no fever, no leukocytosis, no pleurisy). Could be para-pneumonic , malignant, etc. Await tap. 3. ?recurrent pneumonia - she really has no symptoms/signs of pneumonia. If diagnostic thoracentesis does not indicate empyema/infectious effusion then I would consider d/c of all antibiotics (zosyn). 4. T2DM - controlled. Bi BAILEY MD (Erik Bailey MD)
--- NOTE | 2017-10-10 15:55 | DIAGNOSTIC IMAGING REPORT ---
EFFUSION-CHEST/MEDIASTINUM CLINICAL HISTORY: right sided pleural effusion; assess size pleural effusion TECHNIQUE: Ultrasound COMPARISON STUDY: None FINDINGS: No significant left pleural effusion mild central criteria. 1300 cc right pleural effusion. This was marked for later thoracentesis IMPRESSION: 1. 1300 cc right pleural effusion which was marked for later thoracentesis. 2. No significant left effusion The above report was generated using voice recognition software. It may contain grammatical, syntax or spelling errors. Electronically signed by: Jamar Vanegas M.D. 10/10/2017 3:54 PM Dictated Date/Time: 10/10/2017 3:53 PM
--- NOTE | 2017-10-10 20:07 | Pulmonology Progress Note ---
Pulmonary Progress Note Date of Service Oct 10, 2017. Attending Dr. Carranza Subjective Patient feels as though she is at baseline. She has no shortness of breath and no dyspnea with exertion. She has no chest pain or pleuritic pain. She is ambulating well from bed to chair. She has no cough or sputum production. Anxiously awaiting thoracentesis Objective Vital Signs - as noted below Laboratory Data - as noted below Physical Exam: General - NAD Eyes - No icterus, gaze conjugate ENT - Mucosa moist, no lesions or candidiasis Neck - Supple, No JVD Lungs - No bronchospasm, rales, or rhonchi. Persistent decreased breath sounds at the right base Heart - Regular, rate controlled Abdomen - Soft, NT, ND, BS present Extremities - No edema, pedal pulses intact Neuro - A&OX3 Assessment & Plan LARGE RIGHT PLEURAL EFFUSION * Ultrasound today with 1360 estimated volume on the right. No evidence of loculation but there is atelectatic lung in the approach window * Patient currently is on Plavix (clopidogrel) with last dose 10/07/17 am * We'll plan on thoracentesis on Friday Please refer to Dr. Carranza's addendum for further recommendations Data Medications: Current Inpatient Medications Medications (Trade) Dose Ordered Sig/Jakub Route Start Time Stop Time Status Last Admin Dose Admin Heparin Sodium (Porcine) (Heparin Sq 5000 Unit/0.5ml) 5,000 unit Q8 SQ 10/07/17 06:00 11/06/17 05:59 10/10/17 13:29 5,000 UNIT Acetaminophen (Tylenol Tab) 650 mg Q4H PRN PO 10/07/17 01:45 11/06/17 01:44 Magnesium Hydroxide (Milk Of Magnesia Susp) 30 ml Q12H PRN PO 10/07/17 01:45 11/06/17 01:44 10/09/17 09:12 30 ML Ondansetron HCl (Zofran Inj) 4 mg Q6H PRN IV 10/07/17 01:45 11/06/17 01:44 Nitroglycerin (Nitrostat Tab) 0.4 mg UD PRN SL 10/07/17 01:45 11/06/17 01:44 Polyethylene (Miralax Powder Packet) 17 gm DAILY PRN PO 10/07/17 01:45 11/06/17 01:44 10/09/17 09:12 17 GM Insulin Aspart (novoLOG ASPART) SLIDING SCALE If C... ACHS SC 10/07/17 06:30 11/06/17 06:59 10/10/17 18:01 2 UNITS Glucose (Glucose 40% Gel) 15-30 GRAMS 15 GRAMS... UD PRN PO 10/07/17 01:45 11/06/17 01:44 Glucose (Glucose Chew Tab) 4-8 Tablets 4 Tabl... UD PRN PO 10/07/17 01:45 11/06/17 01:44 Dextrose (Dextrose 50% 50ML Syringe) 25-50ML OF 50% DW IV FOR... UD PRN IV 10/07/17 01:45 11/06/17 01:44 Glucagon (Glucagon Inj) 1 mg UD PRN SQ 10/07/17 01:45 11/06/17 01:44 Amlodipine Besylate (Norvasc Tab) 10 mg QAM PO 10/07/17 09:00 11/06/17 08:59 10/10/17 07:58 10 MG Aspirin (Ecotrin Tab) 81 mg QAM PO 10/07/17 09:00 11/06/17 08:59 10/10/17 07:57 81 MG Clopidogrel Bisulfate (plAVix TAB) 75 mg DAILY PO 10/07/17 09:00 11/06/17 08:59 Future Hold 10/07/17 08:15 75 MG Insulin Glargine (Lantus Solostar Pen) 16 units QPM SC 10/07/17 21:00 11/06/17 20:59 10/09/17 20:55 16 UNITS Lisinopril (Zestril Tab) 40 mg QAM PO 10/07/17 09:00 11/06/17 08:59 10/10/17 07:58 40 MG Metoprolol Succinate (Toprol Xl Tab) 50 mg BID PO 10/07/17 09:00 11/06/17 08:59 10/10/17 07:57 50 MG Risperidone (Risperdal Tab) 3 mg HS PO 10/07/17 21:00 11/06/17 20:59 10/09/17 20:56 3 MG Venlafaxine HCl (effeXOR EXTENDED REL CAP) 150 mg QAM PO 10/07/17 09:00 11/06/17 08:59 10/10/17 07:58 150 MG Venlafaxine HCl (effeXOR EXTENDED REL CAP) 75 mg QAM PO 10/07/17 09:00 11/06/17 08:59 10/10/17 07:58 75 MG Piperacillin Sod/ Tazobactam Sod 4.5 gm/Dextrose 120 ml @ 30 mls/hr Q8H IV 10/07/17 04:00 10/14/17 03:59 10/10/17 12:08 30 MLS/HR Piperacillin Sod/ Tazobactam Sod (Consult) 1 ea UD PRN N/A 10/07/17 04:00 11/06/17 03:59 Albuterol (Ventolin Hfa Inhaler) 2 puffs Q4 INH 10/10/17 12:00 11/09/17 11:59 10/10/17 16:42 2 PUFFS Albuterol Sulfate (Ventolin 0.5% 2.5MG/0.5ML Neb) 2.5 mg Q2H PRN INH 10/10/17 11:15 11/09/17 11:14 I & O: 24-Hour Column 10/11/17 08:00 Intake Total 111 ml Output Total 1300 ml Balance -1189 ml Vital Signs: Date Time Temp Pulse Resp B/P (MAP) Pulse Ox O2 Delivery O2 Flow Rate FiO2 10/10/17 19:45 36.6 61 18 145/81 (102) 95 Nasal Cannula 10/10/17 15:31 36.4 60 20 183/71 (108) 91 10/10/17 12:00 Nasal Cannula 2.0 10/10/17 11:34 36.7 59 20 115/65 (82) 97 10/10/17 08:00 Nasal Cannula 2.0 10/10/17 07:52 86 139/77 (97) 10/10/17 07:32 36.6 74 20 154/76 (102) 92 10/10/17 06:59 61 14 92 Nasal Cannula 2.0 10/10/17 04:09 37.0 71 18 136/59 (84) 95 Nasal Cannula 2.0 10/10/17 04:00 Nasal Cannula 2.0 10/10/17 00:00 Nasal Cannula 2.0 10/09/17 23:05 36.8 61 18 144/55 (84) 94 Nasal Cannula 2.0 Humidified Oxygen Laboratory Results: Last 24 Hours Test 10/09/17 20:13 10/10/17 07:33 10/10/17 07:50 10/10/17 11:29 Bedside Glucose 130 mg/dl 93 mg/dl 105 mg/dl Sodium Level 139 mmol/L Potassium Level 4.0 mmol/L Chloride Level 97 mmol/L Carbon Dioxide Level 39 mmol/L Anion Gap 4.0 mmol/L Blood Urea Nitrogen 14 mg/dl Creatinine 0.87 mg/dl Est Creatinine Clear Calc Drug Dose 51.5 ml/min Estimated GFR () 73.4 Estimated GFR (Non- 63.4 BUN/Creatinine Ratio 15.5 Random Glucose 83 mg/dl Calcium Level 8.9 mg/dl Test 10/10/17 16:30 Bedside Glucose 101 mg/dl
[2017-10-10] MEDS: INSULIN GLARGINE SOLOSTAR 100 UNITS/ML 3 ML PEN SC SCH (20:59)
[2017-10-10] MEDS: RISPERIDONE 3 MG TAB PO SCH (21:02)
[2017-10-11] VITALS (9 sets, daily range): BP systolic 126–184; BP diastolic 57–84; PULSE 48–77; TEMP 36.5–37; O2SAT 92–96
[2017-10-11] MEDS: ALBUTEROL HFA 8 GM INHALER INH SCH ×5 (03:32→20:38)
[2017-10-11] MEDS: PIPERACILL/TAZOBAC IV 4.5 GM in DEXTROSE 5% 100ML IV SCH (03:32)
[2017-10-11] MEDS: HEPARIN SOD 5000 UNIT/0.5 ML CARP SQ SCH ×3 (06:01→21:05)
[2017-10-11] MEDS: ASPIRIN 81 MG ECTAB PO SCH (08:22)
[2017-10-11] MEDS: VENLAFAXINE HCL XR 150 MG CAPXR PO SCH (08:22)
[2017-10-11] MEDS: LISINOPRIL 40 MG TAB PO SCH (08:22)
[2017-10-11] MEDS: METOPROLOL SUCC 50MG EXT REL TAB PO SCH ×2 (08:22→20:38)
[2017-10-11] MEDS: VENLAFAXINE HCL XR 75 MG CAPXR PO SCH (08:22)
[2017-10-11] MEDS: AMLODIPINE BESYLATE 5 MG TAB PO SCH (08:23)
[2017-10-11] MEDS: INSULIN ASPART 100 UNITS/ML 3 ML PEN SC SCH ×4 (08:27→20:42)
[2017-10-11 09:17] LABS: HEMATOCRIT 37.4 % (37-47); HEMOGLOBIN 11.5 g/dL (12.0-16.0); MEAN CELL VOLUME 84.8 fL (80-100); MEAN CORPUSCULAR HEMOGLOBIN 26.1 pg (25-34); MEAN CORPUSCULAR HGB CONC 30.7 g/dl (32-36); MEAN PLATELET VOLUME 9.7 fL (7.4-10.4); PLATELET COUNT 318 K/uL (130-400); RED CELL DISTRIBUTION WIDTH CV 15.8 % (11.5-14.5); RED CELL DISTRIBUTION WIDTH SD 48.7 fL (36.4-46.3); WHITE BLOOD COUNT 4.93 K/uL (4.8-10.8)
[2017-10-11 09:47] LABS: CALCIUM 8.8 mg/dl (8.5-10.1); CREATININE 1.02 mg/dl (0.60-1.20); POTASSIUM 4.3 mmol/L (3.5-5.1)
--- NOTE | 2017-10-11 12:04 | Hospitalist Progress Note ---
Hospitalist Progress Note Date of Service Oct 11, 2017. (Beatriz Peace ., PA-C) Subjective Pt evaluation today including: conversation w/ patient, physical exam, lab review, review of studies, review of inpatient medication list Voiding: no voiding problems Patient resting in bed. Eating and drinking OK. On 2L O2 NC. Denies SOB. Walking to bathroom this AM, no SOB. +BM yesterday. Planning for home at discharge- lives w/ family. Denies any ambulatory issues or recent falls. Patient denies any fever, chills, sweats, lightheadedness, dizziness, vision changes, CP, palpitations, edema, SOB, wheezing, cough, abdominal pain, nausea, vomiting, diarrhea, urinary symptoms, melena, numbness/tingling, weakness, muscle/joint pain, anxiety/depression, active bleeding, or new skin discoloration/changes. (Beatriz Peace ., PA-C) Medications Current Inpatient Medications Medications (Trade) Dose Ordered Sig/Jakub Route Start Time Stop Time Status Last Admin Dose Admin Heparin Sodium (Porcine) (Heparin Sq 5000 Unit/0.5ml) 5,000 unit Q8 SQ 10/07/17 06:00 11/06/17 05:59 10/11/17 06:01 5,000 UNIT Acetaminophen (Tylenol Tab) 650 mg Q4H PRN PO 10/07/17 01:45 11/06/17 01:44 Magnesium Hydroxide (Milk Of Magnesia Susp) 30 ml Q12H PRN PO 10/07/17 01:45 11/06/17 01:44 10/09/17 09:12 30 ML Ondansetron HCl (Zofran Inj) 4 mg Q6H PRN IV 10/07/17 01:45 11/06/17 01:44 Nitroglycerin (Nitrostat Tab) 0.4 mg UD PRN SL 10/07/17 01:45 11/06/17 01:44 Polyethylene (Miralax Powder Packet) 17 gm DAILY PRN PO 10/07/17 01:45 11/06/17 01:44 10/09/17 09:12 17 GM Insulin Aspart (novoLOG ASPART) SLIDING SCALE If C... ACHS SC 10/07/17 06:30 11/06/17 06:59 10/11/17 08:27 3 UNITS Glucose (Glucose 40% Gel) 15-30 GRAMS 15 GRAMS... UD PRN PO 10/07/17 01:45 11/06/17 01:44 Glucose (Glucose Chew Tab) 4-8 Tablets 4 Tabl... UD PRN PO 10/07/17 01:45 11/06/17 01:44 Dextrose (Dextrose 50% 50ML Syringe) 25-50ML OF 50% DW IV FOR... UD PRN IV 10/07/17 01:45 11/06/17 01:44 Glucagon (Glucagon Inj) 1 mg UD PRN SQ 10/07/17 01:45 11/06/17 01:44 Amlodipine Besylate (Norvasc Tab) 10 mg QAM PO 10/07/17 09:00 11/06/17 08:59 10/11/17 08:23 10 MG Aspirin (Ecotrin Tab) 81 mg QAM PO 10/07/17 09:00 11/06/17 08:59 10/11/17 08:22 81 MG Clopidogrel Bisulfate (plAVix TAB) 75 mg DAILY PO 10/07/17 09:00 11/06/17 08:59 Future Hold 10/07/17 08:15 75 MG Insulin Glargine (Lantus Solostar Pen) 16 units QPM SC 10/07/17 21:00 11/06/17 20:59 10/10/17 20:59 16 UNITS Lisinopril (Zestril Tab) 40 mg QAM PO 10/07/17 09:00 11/06/17 08:59 10/11/17 08:22 40 MG Metoprolol Succinate (Toprol Xl Tab) 50 mg BID PO 10/07/17 09:00 11/06/17 08:59 10/11/17 08:22 50 MG Risperidone (Risperdal Tab) 3 mg HS PO 10/07/17 21:00 11/06/17 20:59 10/10/17 21:02 3 MG Venlafaxine HCl (effeXOR EXTENDED REL CAP) 150 mg QAM PO 10/07/17 09:00 11/06/17 08:59 10/11/17 08:22 150 MG Venlafaxine HCl (effeXOR EXTENDED REL CAP) 75 mg QAM PO 10/07/17 09:00 11/06/17 08:59 10/11/17 08:22 75 MG Albuterol (Ventolin Hfa Inhaler) 2 puffs Q4 INH 10/10/17 12:00 11/09/17 11:59 10/11/17 08:23 2 PUFFS Albuterol Sulfate (Ventolin 0.5% 2.5MG/0.5ML Neb) 2.5 mg Q2H PRN INH 10/10/17 11:15 11/09/17 11:14 (Beatriz Peace, PA-C) Objective Vital Signs Date Time Temp Pulse Resp B/P (MAP) Pulse Ox O2 Delivery O2 Flow Rate FiO2 10/11/17 11:19 36.5 48 18 153/84 (107) 92 Nasal Cannula 2.0 10/11/17 08:21 72 126/76 (93) 10/11/17 08:00 Nasal Cannula 2.0 10/11/17 07:48 37.0 75 18 184/77 (112) 93 Nasal Cannula 2.0 10/11/17 05:50 36.6 69 18 129/65 (86) 95 Nasal Cannula 2.0 10/11/17 04:00 Nasal Cannula 2.0 10/11/17 00:37 37.0 69 18 127/75 (92) 92 Nasal Cannula 2.0 10/11/17 00:00 Nasal Cannula 2.0 10/10/17 20:00 95 Nasal Cannula 2.0 10/10/17 19:45 36.6 61 18 145/81 (102) 95 Nasal Cannula 10/10/17 16:00 95 Nasal Cannula 2.0 10/10/17 15:31 36.4 60 20 183/71 (108) 91 10/10/17 12:00 Nasal Cannula 2.0 (Beatriz Peace, PA-C) Physical Exam General Appearance: no apparent distress, + obese, + pertinent finding (O2 NC ) Eyes: normal inspection, PERRL ENT: hearing grossly normal Neck: supple Respiratory/Chest: lungs clear, no respiratory distress, no accessory muscle use, + decreased breath sounds (R lung base ) Cardiovascular: regular rate, rhythm Abdomen: normal bowel sounds, non tender, soft Extremities: no pedal edema, no calf tenderness Neurologic/Psychiatric: alert, normal mood/affect, oriented x 3 Skin: normal color, warm/dry, no rash (Beatriz Peace ., PA-C) Laboratory Results Last 24 Hours Test 10/10/17 16:30 10/10/17 20:35 10/11/17 07:42 10/11/17 08:52 Bedside Glucose 101 mg/dl 118 mg/dl 101 mg/dl White Blood Count 4.93 K/uL Red Blood Count 4.41 M/uL Hemoglobin 11.5 g/dL Hematocrit 37.4 % Mean Corpuscular Volume 84.8 fL Mean Corpuscular Hemoglobin 26.1 pg Mean Corpuscular Hemoglobin Concent 30.7 g/dl RDW Standard Deviation 48.7 fL RDW Coefficient of Variation 15.8 % Platelet Count 318 K/uL Mean Platelet Volume 9.7 fL Sodium Level 136 mmol/L Potassium Level 4.3 mmol/L Chloride Level 95 mmol/L Carbon Dioxide Level 38 mmol/L Anion Gap 4.0 mmol/L Blood Urea Nitrogen 14 mg/dl Creatinine 1.02 mg/dl Est Creatinine Clear Calc Drug Dose 43.8 ml/min Estimated GFR () 60.6 Estimated GFR (Non- 52.3 BUN/Creatinine Ratio 13.5 Random Glucose 213 mg/dl Calcium Level 8.8 mg/dl (Beatriz Peace ., PA-C) Assessment and Plan The patient is a 77-year-old female with a past medical history of diabetes, hypertension, depression, and recently an episode of pneumonia 1 month ago with discharge on 2 L of oxygen, that presents with a one-month history of shortness of breath that has worsened over the last 2 days. Acute on chronic hypoxic respiratory failure secondary to R pleural effusion: - Admitted to [facility] for cardiac monitoring- no acute events, will transfer to med /surg - Continue supplemental O2 and wean if tolerated- does NOT have O2 supplement at home - Speech evaluation- aspiration precautions - ECHO Jul 2017- no mention of diastolic dysfunction, EF 60-70% - Pulmonary following - continue to hold Plavix (last dose 10/07) and planing for thoracentesis on 10/12 -- US showing 1300 mL, marked for upcoming tap Possible HCAP: - IV Zosyn- afebrile and without leukocytosis, procalcitonin negative- will discontinue - Will continue home inhalers and nebs PRN - BCx negative; MRSA swab negative T2DM- hgbA1c 6.1%: - Hold Metformin while inpatient - Lantus 16 units HS - BSG ACHS and ISS Carotid stenosis: Continue ASA 81 mg daily and hold Plavix with anticipated thoracentesis HTN: Lisinopril 40 mg daily, Norvasc 10 mg daily, and Toprol XL 50 mg BID Depression: Continue Effexor 225 mg daily DVT Prophylaxis: Heparin 5000 units SC Q8H Code Status: FULL RESUSCITATION Disposition: Plan to return home on D/C - PT/OT recommend home w/ family assist (Beatriz Peace ., PAKarinC) Attending Attestation: Pt seen/examined, chart reviewed, care plan d/w EDDI Peace. I agree w/ the francois components of her documentation. Tele stable overnight Pt feeling well; denies pleuritic pain, cough, anorexia, dyspnea at rest. Minimal [place] when going to bathroom. VSS no fever gen - nad heart - RRR lungs - decreased BS right base; mild improvement in airation right lung; left lung clear abd - soft, NT ext - trace edema b/l A/P: 1. acute/chronic hypoxic resp failure - acute component 2nd to large right- sided pleural effusion. Awaiting diagnostic/therapeutic thoracentesis on . u/s with 1300cc of fluid on right. marked for the tap. Pulmonary to perform tap tomorrow. Holding plavix. And hold heparin SC starting tonight. 2. right-sided pleural effusion - needs diagnostic/therapeutic thoracentesis but awaiting plavix to exit system. Last dose was 10/07. Doubt empyema (no fever, no leukocytosis, no pleurisy). Could be para-pneumonic , malignant, etc. Await tap. 3. ?recurrent pneumonia - she really has no symptoms/signs of pneumonia. Has received 5 days of zosyn - would d/c. 4. T2DM - controlled. all other medical problems stable agree with transfer to med/surg Bi BAILEY MD (Erik Bailey MD)
[2017-10-11] MEDS: RISPERIDONE 3 MG TAB PO SCH (20:38)
[2017-10-11] MEDS: INSULIN GLARGINE SOLOSTAR 100 UNITS/ML 3 ML PEN SC SCH (20:43)
[2017-10-12] MEDS: ALBUTEROL HFA 8 GM INHALER INH SCH ×7 (04:21→23:29)
[2017-10-12 06:56] VITALS: BP 145/77; PULSE 78; TEMP 37; O2SAT 97
[2017-10-12] MEDS: VENLAFAXINE HCL XR 75 MG CAPXR PO SCH (08:20)
[2017-10-12] MEDS: LISINOPRIL 40 MG TAB PO SCH (08:20)
[2017-10-12] MEDS: ASPIRIN 81 MG ECTAB PO SCH (08:20)
[2017-10-12] MEDS: METOPROLOL SUCC 50MG EXT REL TAB PO SCH ×2 (08:20→19:48)
[2017-10-12] MEDS: VENLAFAXINE HCL XR 150 MG CAPXR PO SCH (08:20)
[2017-10-12] MEDS: AMLODIPINE BESYLATE 5 MG TAB PO SCH (08:21)
[2017-10-12] MEDS: INSULIN ASPART 100 UNITS/ML 3 ML PEN SC SCH ×4 (08:23→21:11)
--- NOTE | 2017-10-12 10:17 | Pulmonology Progress Note ---
Pulmonary Progress Note Date of Service Oct 12, 2017. Attending Dr. Carranza Subjective Ms. Alfaro is a pleasant 77-year-old female who presented with shortness of breath and was found to have a moderate to large right pleural effusion. She was evaluated for thoracentesis. However, she was found to be on clopidogrel for bilateral carotid stenosis. Orders were placed to hold the clopidogrel. Last dose received was 10/07/17. Patient was placed on heparin 5000 units subcutaneously for DVT prophylaxis. Last dose was last evening. Today the patient states that she is comfortable with no significant dyspnea with exertion or at rest. She does continue with supplemental O2. She does not use home O2. Plan will be to perform thoracentesis today. After the procedure we will do two-step and hopefully allow the patient to be discharged home without supplemental oxygen being required. The patient denies any acute findings. She has no shortness of breath. She has no nausea or vomiting. She has no cough or sputum. She has no chest pain or tightness. Objective Vital Signs - as noted below Laboratory Data - as noted below Physical Exam: General - NAD Eyes - No icterus, gaze conjugate ENT - Mucosa moist, no lesions or candidiasis Neck - Supple, No JVD Lungs - No bronchospasm, rales, or rhonchi. Persistent decreased breath sounds at the right base Heart - Regular, rate controlled Abdomen - Soft, NT, ND, BS present Extremities - No edema, pedal pulses intact Neuro - A&OX3 Assessment & Plan LARGE RIGHT PLEURAL EFFUSION * Ultrasound Friday with 1360 estimated volume on the right. No evidence of loculation but there is atelectatic lung in the approach window * Patient currently is on Plavix (clopidogrel) with last dose 10/07/17 am * Will plan on thoracentesis today * Most recent INR was 1.1 * Today is day five without clopidogrel * Heparin subcutaneously was held last night * No other anticoagulant therapy Thank you for including us in the care of this patient. We will let the hospitalist team know results from thoracentesis. It is anticipated that patient can be discharged home later today with successful thoracentesis from a pulmonary perspective. Please refer to Dr. Carranza's addendum for further recommendations. Physician Supervision Note: I was present with Sebastian Stein PA-C during the history and exam. I discussed the case with his and agree with the findings and plan as documented in the note. Any exceptions or clarifications are listed here: 77 year old female with h/o DM, recent pneumonia (right upper lobe), active smoker, returned to the hospital for increasing shortness of breath and new onset large left pleural effusion. Possibly para-pneumonic effusion. Doubt empyema She is not symptomatic at rest. S/p thoracentesis today, removed 1360 ml of clear straw color fluid. Likely exudative, but serum protein/LDH not recently done, will check them. No pneumothorax post-procedure Possible discharge home tomorrow Documented By: Bonifacio Carranza MD Data Medications: Current Inpatient Medications Medications (Trade) Dose Ordered Sig/Jakub Route Start Time Stop Time Status Last Admin Dose Admin Heparin Sodium (Porcine) (Heparin Sq 5000 Unit/0.5ml) 5,000 unit Q8 SQ 10/07/17 06:00 11/06/17 05:59 Future Hold 10/11/17 21:05 5,000 UNIT Acetaminophen (Tylenol Tab) 650 mg Q4H PRN PO 10/07/17 01:45 11/06/17 01:44 Magnesium Hydroxide (Milk Of Magnesia Susp) 30 ml Q12H PRN PO 10/07/17 01:45 11/06/17 01:44 10/09/17 09:12 30 ML Ondansetron HCl (Zofran Inj) 4 mg Q6H PRN IV 10/07/17 01:45 11/06/17 01:44 Nitroglycerin (Nitrostat Tab) 0.4 mg UD PRN SL 10/07/17 01:45 11/06/17 01:44 Polyethylene (Miralax Powder Packet) 17 gm DAILY PRN PO 10/07/17 01:45 11/06/17 01:44 10/09/17 09:12 17 GM Insulin Aspart (novoLOG ASPART) SLIDING SCALE If C... ACHS SC 10/07/17 06:30 11/06/17 06:59 10/12/17 08:23 1 UNITS Glucose (Glucose 40% Gel) 15-30 GRAMS 15 GRAMS... UD PRN PO 10/07/17 01:45 11/06/17 01:44 Glucose (Glucose Chew Tab) 4-8 Tablets 4 Tabl... UD PRN PO 10/07/17 01:45 11/06/17 01:44 Dextrose (Dextrose 50% 50ML Syringe) 25-50ML OF 50% DW IV FOR... UD PRN IV 10/07/17 01:45 11/06/17 01:44 Glucagon (Glucagon Inj) 1 mg UD PRN SQ 10/07/17 01:45 11/06/17 01:44 Amlodipine Besylate (Norvasc Tab) 10 mg QAM PO 10/07/17 09:00 11/06/17 08:59 10/12/17 08:21 10 MG Aspirin (Ecotrin Tab) 81 mg QAM PO 10/07/17 09:00 11/06/17 08:59 10/12/17 08:20 81 MG Clopidogrel Bisulfate (plAVix TAB) 75 mg DAILY PO 10/07/17 09:00 11/06/17 08:59 Future Hold 10/07/17 08:15 75 MG Insulin Glargine (Lantus Solostar Pen) 16 units QPM SC 10/07/17 21:00 11/06/17 20:59 10/11/17 20:43 16 UNITS Lisinopril (Zestril Tab) 40 mg QAM PO 10/07/17 09:00 11/06/17 08:59 10/12/17 08:20 40 MG Metoprolol Succinate (Toprol Xl Tab) 50 mg BID PO 10/07/17 09:00 11/06/17 08:59 10/12/17 08:20 50 MG Risperidone (Risperdal Tab) 3 mg HS PO 10/07/17 21:00 11/06/17 20:59 10/11/17 20:38 3 MG Venlafaxine HCl (effeXOR EXTENDED REL CAP) 150 mg QAM PO 10/07/17 09:00 11/06/17 08:59 10/12/17 08:20 150 MG Venlafaxine HCl (effeXOR EXTENDED REL CAP) 75 mg QAM PO 10/07/17 09:00 11/06/17 08:59 10/12/17 08:20 75 MG Albuterol (Ventolin Hfa Inhaler) 2 puffs Q4 INH 10/10/17 12:00 11/09/17 11:59 10/12/17 08:20 2 PUFFS Albuterol Sulfate (Ventolin 0.5% 2.5MG/0.5ML Neb) 2.5 mg Q2H PRN INH 10/10/17 11:15 11/09/17 11:14 Vital Signs: Date Time Temp Pulse Resp B/P (MAP) Pulse Ox O2 Delivery O2 Flow Rate FiO2 10/12/17 06:56 37.0 78 18 145/77 (99) 97 Nasal Cannula 2.0 10/12/17 00:00 Nasal Cannula 2.0 10/11/17 23:33 36.8 58 16 128/57 (80) 96 Nasal Cannula 2.0 10/11/17 21:08 96 Nasal Cannula 2.0 Humidified Oxygen 10/11/17 20:36 36.5 64 162/78 (106) 96 Room Air 10/11/17 16:00 Nasal Cannula 2.0 10/11/17 15:09 36.5 77 18 157/71 (99) 93 Nasal Cannula 2.0 10/11/17 12:00 Nasal Cannula 2.0 10/11/17 11:19 36.5 48 18 153/84 (107) 92 Nasal Cannula 2.0 Laboratory Results: Last 24 Hours Test 10/11/17 11:38 10/11/17 16:34 10/11/17 20:02 10/12/17 07:44 Bedside Glucose 126 mg/dl 181 mg/dl 149 mg/dl 114 mg/dl
--- NOTE | 2017-10-12 11:33 | Discharge Instructions ---
Discharge Instructions Date of Service Oct 12, 2017. Admission Reason for Admission: HCAP Discharge Discharge Diagnosis / Problem: Right pleural effusion Discharge Goals Goal(s): Decrease discomfort, Improve function, Improve disease control, Learn about illness, Diagnostic testing, Therapeutic intervention, Prevent Disease Progression Activity Recommendations Activity Limitations: resume your previous activity . Instructions / Follow-Up Instructions / Follow-Up You were found to have a right-sided pleural effusion (fluid around the lung). A thoracentesis (drainage of fluid) was completed by pulmonary. The fluid was sent off for further analysis to determine cause of fluid accumulation. These studies will be discussed with you at your pulmonary follow-up appointment. Resume all regular home medications as prescribed FOLLOW-UPS: Please follow-up with your PCP within 5-7 days Please follow-up with Pulmonary as instructed Please follow-up/keep all of your subspecialty appointments Current Hospital Diet Patient's current hospital diet: Diabetes Type 2 Diet, AHA Diet (Heart Healthy) Discharge Diet Recommended Diet: AHA Diet (Heart Healthy), Diabetes Type 2 Diet Procedures Procedures Performed: R-sided thoracentesis Pending Studies Studies pending at discharge: yes List of pending studies: Pleural studies Laboratory Results Hemoglobin A1c Test 10/08/17 05:47 Range/Units Estimated Average Glucose 128 mg/dl Hemoglobin A1c 6.1 H 4.5-5.6 % Lipid Panel Test 07/23/17 02:23 Range/Units Triglycerides Level 220 H 0-150 mg/dl Cholesterol Level 72 0-200 mg/dl HDL Cholesterol 12 mg/dl Cholesterol/HDL Ratio 6.0 LDL Cholesterol, Calculated 16 mg/dl Medical Emergencies . Who to Call and When: Medical Emergencies: If at any time you feel your situation is an emergency, please call 911 immediately. . Non-Emergent Contact Non-Emergency issues call your: Primary Care Provider, Dipper Fish Call Non-Emergent contact if: you have any medication questions . . "Provider Documentation" section prepared by Beatriz Peace. . VTE Core Measure Inpt VTE Proph given/why not?: Unfractionated heparin SQ
--- NOTE | 2017-10-12 11:41 | Discharge Summary ---
Discharge Summary Date of Service Oct 12, 2017. Discharge Summary Admission Date: Oct 07, 2017 at 01:50 Discharge Date: Oct 12, 2017 Discharge Disposition: Home (w/ family assistance ) Principal Diagnosis: Right-sided pleural effusion Problems/Secondary Diagnoses: Acute on chronic hypoxic respiratory failure secondary to R pleural effusion Possible HCAP T2DM- hgbA1c 6.1% Carotid stenosis HTN Depression Immunizations: Have You Had Influenza Vaccine: Yes Influenza Vaccine Date: Aug 09, 2011 History of Tetanus Vaccine?: Yes Tetanus Immunization Date: Apr 08, 2007 History of Pneumococcal: Yes Pneumococcal Date: Apr 08, 2012 History of Hepatitis B Vaccine: No Procedures: R-sided thoracentesis Procedure Note Procedure Date Oct 12, 2017. Procedure Description Procedure Name: Right-sided thoracentesis Procedure time out: side/site verified, patient ID confirmed, correct procedure Consent obtained: written (obtained by Dr. Carranza) Time of procedure: 11:00 Performed by: physician kaiawhina kohanga reo (Sebastian Stein PA-C) Indications: diagnostic, therapeutic Contraindications: none (Plavix held after 10/07/17 dose. Heparin subq held after last night's dose) Description: INDICATION: Large right pleural effusion. PROCEDURE [employer] INSTRUCTOR: Sebastian Stein PA-C PROCEDURE SUMMARY: A time out was performed. The patient was prepped and draped in a sterile manner using chlorhexidine scrub after the appropriate level was confirmed by ultrasound. 1% lidocaine was used to numb the region. A finder needle was then used to locate fluid and instill lidocaine into the pleural space. A small incision was made with a #10 scalpel. A a needle with overlying catheter was advanced using negative pressure on the syringe until a pleural flash was obtained. The thoracentesis catheter was then threaded without difficulty and without any bleeding. The patient had 1360 mL of clear yellow fluid removed. The incision site was then covered with a gauze pad with paper tape. No evidence of bleeding. No immediate complications were noted during the procedure. Dr. Carranza was present for the entire procedure. A post-procedure chest x-ray was completed and showed no pneumothorax. The patient tolerated the procedure well with no shortness of breath, no increase in heart rate, and no other acute symptoms. Pulse oximetry remained at 95% or higher for the entire procedure. SBP did drop to 94. NIBP cuff was loose. It was re-applied and SBP was in the mid teens The fluid was sent for laboratory analysis. Complications: none Patient tolerated procedure: well Post-procedure vital signs: reviewed and stable <Electronically signed by Sebastian Stein PA-C> Signed: 10/12/17 1209 Signed: The status of this report is ISigned * If report status is Draft, the document has not been finalized by the responsible provider. SINGLE VIEW CHEST CLINICAL HISTORY: Dyspnea. FINDINGS: An AP, portable, upright chest radiograph is compared to study dated 08/30/2017. The examination is degraded by portable technique and patient rotation. The heart is top normal for projection and there is atherosclerotic calcification of the thoracic aorta. There is prominence of the central pulmonary vessels. There is dense right basilar airspace consolidation with a right pleural effusion. A small left pleural effusion is noted. No pneumothorax is seen. The skeletal structures are osteopenic. The bony thorax is grossly intact. Calcific tendinopathy is noted in the left shoulder. IMPRESSION: 1. There is dense right bibasilar consolidation with associated right pleural effusion. The appearance suggests pneumonia. Clinical correlation will be required and radiographic follow-up to resolution is recommended. 2. A trace left pleural effusion is identified. 3. Cardiomegaly with prominence of the central pulmonary vessels. Cortical clinically for evidence of mild congestive failure. Electronically signed by: Sebastian Aguilar M.D. 10/06/2017 9:14 PM Dictated Date/Time: 10/06/2017 9:12 PM The status of this report is Signed. Draft = Not yet reviewed or approved by Radiologist. Signed = Reviewed and approved by Radiologist. (CHEST) THORAX WITHOUT CT DOSE: 595.88 mGy.cm HISTORY: Short of breath. recurrent pneumonia TECHNIQUE: Multiaxial CT images of the chest were performed without contrast. A dose lowering technique was utilized adhering to the principles of ALARA. COMPARISON: Chest CTA 07/22/2017. FINDINGS: Interval development of a moderate to large right pleural effusion. This results in compressive atelectasis of the posterior aspects of the right upper lobe and right lower lobe. No pneumothorax. Nodular septal thickening with scattered groundglass airspace opacities suggestive of pulmonary edema. There are few small nodular opacities within the left lower lobe demonstrating a groundglass halo. This favors a component of the pulmonary edema or a mild infectious change. Central airways are patent. No suspicious lytic or blastic osseous lesions. No acute fractures within the visualized osseous structures. The visualized liver and spleen are unremarkable. Mild bilateral adrenal gland thickening, unchanged. A few borderline enlarged. Lymph nodes which have slightly increased in size. Normal caliber thoracic aorta. The heart is mildly enlarged. No significant pericardial effusion. IMPRESSION: 1. Interval development of a moderate to large right pleural effusion. 2. Mild cardiomegaly with mild pulmonary edema. 3. Prominent mediastinal lymph nodes which may be reactive. 4. Small nodular opacities within the left lower lobe demonstrating a groundglass halo. This could be due to pulmonary edema or mild infectious change. Electronically signed by: Willam Reyes M.D. 10/07/2017 8:11 AM Dictated Date/Time: 10/07/2017 8:03 AM The status of this report is Signed. Draft = Not yet reviewed or approved by Radiologist. Signed = Reviewed and approved by Radiologist. EFFUSION-CHEST/MEDIASTINUM CLINICAL HISTORY: right sided pleural effusion; assess size pleural effusion TECHNIQUE: Ultrasound COMPARISON STUDY: None FINDINGS: No significant left pleural effusion mild central criteria. 1300 cc right pleural effusion. This was marked for later thoracentesis IMPRESSION: 1. 1300 cc right pleural effusion which was marked for later thoracentesis. 2. No significant left effusion The above report was generated using voice recognition software. It may contain grammatical, syntax or spelling errors. Electronically signed by: Jamar Vanegas M.D. 10/10/2017 3:54 PM Dictated Date/Time: 10/10/2017 3:53 PM The status of this report is Signed. Draft = Not yet reviewed or approved by Radiologist. Signed = Reviewed and approved by Radiologist Consultations: Pulmonary Medication Reconciliation Continued Medications: Albuterol (Ventolin Hfa) 60 Puffs/5400 Mcg Aers 2 PUFFS INH Q4H for SOB/Wheezing for 14 Days, #1 DOSE Amlodipine Besylate (Norvasc) 10 Mg Tab 10 MG PO QAM, TAB Aspirin (Aspirin Ec) 81 Mg Tab 81 MG PO QAM Cholecalciferol (Vitamin D3) 2,000 Unit Tab 2000 UNITS PO DAILY for 90 Days, TAB 3 Refills Clopidogrel Bisulfate (Clopidogrel) 75 Mg Tab 75 MG PO DAILY Insulin Aspart (Novolog Flexpen) 100 Units/Ml Inj 6-8 UNITS SQ TIDM Insulin Glargine (Lantus) 100 Unit/Ml Inj 16 UNITS SC QPM, VIAL Lisinopril (Zestril) 40 Mg Tab 40 MG PO QAM Metformin Hcl (Glucophage) 500 Mg Tab 500 MG PO BIDM, TAB PT NOT TAKING UNTIL FURTHER NOTICE. PT CALLING THE DR ROOT 10/08/17 FOR INSTRUCTIONS. Metoprolol Succinate (Toprol Xl) 50 Mg Tabcr 50 MG PO BID, #60 TABS 5 Refills Risperidone (Risperdal) 3 Mg Tab 3 MG PO HS Venlafaxine Hcl (Effexor Xr) 75 Mg Cap 75 MG PO QAM 225MG TOTAL Venlafaxine Hcl (Effexor Extended Rel) 150 Mg Cap 150 MG PO QAM 225MG TOTAL Referrals At Discharge Follow up Referrals: Family Practice Referral - Within 1-2 Weeks with Tab Bellamy M.D. Discharge Exam Review of Systems: Constitutional: No fever, No chills, No sweats, No weakness, No fatigue Eyes: No worsening of vision ENT: No hearing loss Respiratory: No cough, No shortness of breath, No hemoptysis Cardiovascular: No chest pain, No edema, No palpitations Abdomen: No pain, No nausea, No vomiting, No diarrhea Musculoskeletal: No joint pain, No muscle pain, No swelling, No calf pain Genitourinary - Female: No dysuria, No hematuria Neurologic: No weakness, No numbness/tingling Psychiatric: No depression symptoms, No anxiety Endocrine: No fatigue Hematologic / Lymphatic: No abnormal bleeding/bruising Integumentary: No rash, No itch, No new/changing skin lesions Physical Exam: General Appearance: no apparent distress Eyes: normal inspection, PERRL ENT: hearing grossly normal Neck: supple Respiratory/Chest: lungs clear, no respiratory distress, no accessory muscle use, + decreased breath sounds (R lung base ) Cardiovascular: regular rate, rhythm Abdomen / GI: normal bowel sounds, non tender, soft Extremities: no calf tenderness, no pedal edema Neurologic/Psychiatric: alert, normal mood/affect, oriented x 3 Skin: normal color, warm/dry, no rash Hospital Course Admission H&P: The patient is a 77 year old female who presents to the Emergency Room with complaints of constant shortness of breath beginning a month ago. The patient states she had pneumonia a month ago, and since then, she has been short of breath. She reports she cannot walk or hold a conversation without getting short of breath. The patient's family notes the patient was here 5 weeks ago for her sodium level. They state it is suspected that the patient picked up her pneumonia during that visit because she did not show signs of pneumonia. The family reports she came to the ED for a fever and was diagnosed with pneumonia. They note she did not have a cough or congestion. The patient states she thinks her pneumonia may not have been completely resolved. She reports she was discharged on 2L of oxygen, and she has never had to wear oxygen before. She states she has a chest x-ray scheduled in 6 days, but she did not want to wait for it. The patient denies swelling in her legs. She notes she has a history of smoking but quit several years ago. Physical Exam Vital Signs Date Time Temp Pulse Resp B/P (MAP) Pulse Ox O2 Delivery O2 Flow Rate FiO2 10/07/17 02:10 70 30 157/63 91 Room Air 10/07/17 00:49 71 28 176/81 90 Nasal Cannula 3.0 10/07/17 00:47 73 10/06/17 22:36 72 30 169/67 90 Nasal Cannula 3.0 10/06/17 21:09 95 Nasal Cannula 3.0 10/06/17 21:00 82 10/06/17 20:57 95 Nasal Cannula 3.0 10/06/17 20:46 36.7 93 24 203/79 62 Room Air Physical Exam CONSTITUTIONAL/VITAL SIGNS: Reviewed / noted above. GENERAL: Non-toxic in appearance. INTEGUMENTARY: Warm, dry, and [place]. HEAD: Normocephalic. EYES: without scleral icterus or trauma. ENT/OROPHARYNX: clear and moist. LYMPHADENOPATHY/NECK: Is supple without lymphadenopathy or meningismus. RESPIRATORY: Diminished breath sounds on the right compared to left. Poor air movement bilaterally. Increased rate of respirations. Mild increase workers breathing. CARDIOVASCULAR: Regular rate and rhythm. GI/ABDOMEN: Soft and nontender. No organomegaly or pulsatile mass. No rebound or guarding. Normal bowel sounds. EXTREMITIES: Warm and well perfused. BACK: No CVA tenderness. NEUROLOGICAL: Intact without focal deficits. PSYCHIATRIC: normal affect. MUSCULOSKELETAL: Normally developed with good muscle tone. Hospital Course: The patient is a 77-year-old female with a past medical history of diabetes, hypertension, depression, and recently an episode of pneumonia 1 month ago with discharge on 2 L of oxygen, that presents with a one-month history of shortness of breath that has worsened over the last 2 days. Acute on chronic hypoxic respiratory failure secondary to R pleural effusion: - Admitted to [facility] for cardiac monitoring- no acute events, transferred to med/ surg - Continue supplemental O2 and wean if tolerated- does NOT have O2 supplement at home- 2-step completed after thoracentesis - Speech evaluation- aspiration precautions - ECHO Jul 2017- no mention of diastolic dysfunction, EF 60-70% - Pulmonary following - Plavix needed held x5 days prior to procedure (last dose 10/07) -- US showing 1300 mL, marked for tap -- s/p thoracentesis on 10/12- drained 1.3L, looked transudative, pleural studies pending -- Pulmonary to scheduled outpatient f/u Possible HCAP: - IV Zosyn- afebrile and without leukocytosis, procalcitonin negative- discontinued - Will continue home inhalers and nebs PRN - BCx negative; MRSA swab negative T2DM- hgbA1c 6.1%: - Hold Metformin while inpatient- resume at discharge - Lantus 16 units HS - BSG ACHS and ISS Carotid stenosis: Continue ASA 81 mg daily and hold Plavix with anticipated thoracentesis- resume Plavix at discharge HTN: Lisinopril 40 mg daily, Norvasc 10 mg daily, and Toprol XL 50 mg BID Depression: Continue Effexor 225 mg daily DVT Prophylaxis: Heparin 5000 units SC Q8H Code Status: FULL RESUSCITATION Disposition: Discharge to home w/ family assistance Total Time Spent: Greater than 30 minutes This includes examination of the patient, discharge planning, medication reconciliation, and communication with other providers. Discharge Instructions Please refer to the electronic Patient Visit Report (Discharge Instructions) for additional information. Follow-Up Please follow-up with your PCP within 5-7 days Please follow-up with Pulmonary as instructed Please follow-up/keep all of your subspecialty appointments Additional Copies To Tab Bellamy M.D.
--- NOTE | 2017-10-12 12:07 | DIAGNOSTIC IMAGING REPORT ---
CHEST ONE VIEW PORTABLE HISTORY: S/P right thoracentesis - R/O PNX COMPARISON: Chest 10/06/2017. FINDINGS: Decrease in size in the small right pleural effusion status post thoracentesis. No pneumothorax. Trace left pleural effusion persists. The heart remains mildly enlarged. Mild central pulmonary vascular congestion without overt edema. Small peripheral airspace opacity within the right upper lobe. IMPRESSION: 1. Decrease in size in the small right pleural effusion status post thoracentesis. No pneumothorax. 2. Mild central pulmonary vascular congestion without overt edema. 3. Small airspace opacity within the right upper lobe. Electronically signed by: Willam Reyes M.D. 10/12/2017 12:05 PM Dictated Date/Time: 10/12/2017 12:04 PM
--- NOTE | 2017-10-12 12:09 | Procedure Note ---
Procedure Note Procedure Date Oct 12, 2017. (Sebastian Stein PA-C) Procedure Description Procedure Name: Right-sided thoracentesis Procedure time out: side/site verified, patient ID confirmed, correct procedure Consent obtained: written (obtained by Dr. Carranza) Time of procedure: 11:00 Performed by: physician chemical laboratory scientist (Sebastian Stein PA-C) Indications: diagnostic, therapeutic Contraindications: none (Plavix held after 10/07/17 dose. Heparin subq held after last night's dose) Description: INDICATION: Large right pleural effusion. PROCEDURE PENSION FUND MANAGER: Sebastian Stein PA-C PROCEDURE SUMMARY: A time out was performed. The patient was prepped and draped in a sterile manner using chlorhexidine scrub after the appropriate level was confirmed by ultrasound. 1% lidocaine was used to numb the region. A finder needle was then used to locate fluid and instill lidocaine into the pleural space. A small incision was made with a #10 scalpel. A a needle with overlying catheter was advanced using negative pressure on the syringe until a pleural flash was obtained. The thoracentesis catheter was then threaded without difficulty and without any bleeding. The patient had 1360 mL of clear yellow fluid removed. The incision site was then covered with a gauze pad with paper tape. No evidence of bleeding. No immediate complications were noted during the procedure. Dr. Carranza was present for the entire procedure. A post-procedure chest x-ray was completed and showed no pneumothorax. The patient tolerated the procedure well with no shortness of breath, no increase in heart rate, and no other acute symptoms. Pulse oximetry remained at 95% or higher for the entire procedure. SBP did drop to 94. NIBP cuff was loose. It was re-applied and SBP was in the mid teens The fluid was sent for laboratory analysis. Complications: none Patient tolerated procedure: well Post-procedure vital signs: reviewed and stable (Sebastian Stein PA-C) Comments: Resident Physician Supervision Note: I directly supervised Sebastian Stein during thoracentesis. I was immediately available throughout the procedure. Documented By: Bonifacio Carranza MD (Bonifacio Carrnaza .MD)
[2017-10-12 12:16] LABS: PLEURAL FLUID TOTAL PROTEIN 4.2 g/dl
--- NOTE | 2017-10-12 14:32 | Hospitalist Progress Note ---
Hospitalist Progress Note Date of Service Oct 12, 2017. (Beatriz Peace ., TYRELL) Subjective Pt evaluation today including: conversation w/ patient, physical exam, lab review, review of studies, review of inpatient medication list Voiding: no voiding problems Patient sitting in bedside chair. Eating and drinking OK. s/p thoracentesis- O2 sats dropped to 80s. Patient denies any fever, chills, sweats, lightheadedness, dizziness, vision changes, CP, palpitations, edema, SOB, wheezing, cough, abdominal pain, nausea, vomiting, diarrhea, urinary symptoms, melena, numbness/tingling, weakness, muscle/joint pain, anxiety/depression, active bleeding, or new skin discoloration/changes. (Beatriz Peace ., DIAZC) Medications Current Inpatient Medications Medications (Trade) Dose Ordered Sig/Jakub Route Start Time Stop Time Status Last Admin Dose Admin Heparin Sodium (Porcine) (Heparin Sq 5000 Unit/0.5ml) 5,000 unit Q8 SQ 10/07/17 06:00 11/06/17 05:59 Future Hold 10/11/17 21:05 5,000 UNIT Acetaminophen (Tylenol Tab) 650 mg Q4H PRN PO 10/07/17 01:45 11/06/17 01:44 Magnesium Hydroxide (Milk Of Magnesia Susp) 30 ml Q12H PRN PO 10/07/17 01:45 11/06/17 01:44 10/09/17 09:12 30 ML Ondansetron HCl (Zofran Inj) 4 mg Q6H PRN IV 10/07/17 01:45 11/06/17 01:44 Nitroglycerin (Nitrostat Tab) 0.4 mg UD PRN SL 10/07/17 01:45 11/06/17 01:44 Polyethylene (Miralax Powder Packet) 17 gm DAILY PRN PO 10/07/17 01:45 11/06/17 01:44 10/09/17 09:12 17 GM Insulin Aspart (novoLOG ASPART) SLIDING SCALE If C... ACHS SC 10/07/17 06:30 11/06/17 06:59 10/12/17 13:21 8 UNITS Glucose (Glucose 40% Gel) 15-30 GRAMS 15 GRAMS... UD PRN PO 10/07/17 01:45 11/06/17 01:44 Glucose (Glucose Chew Tab) 4-8 Tablets 4 Tabl... UD PRN PO 10/07/17 01:45 11/06/17 01:44 Dextrose (Dextrose 50% 50ML Syringe) 25-50ML OF 50% DW IV FOR... UD PRN IV 10/07/17 01:45 11/06/17 01:44 Glucagon (Glucagon Inj) 1 mg UD PRN SQ 10/07/17 01:45 11/06/17 01:44 Amlodipine Besylate (Norvasc Tab) 10 mg QAM PO 10/07/17 09:00 11/06/17 08:59 10/12/17 08:21 10 MG Aspirin (Ecotrin Tab) 81 mg QAM PO 10/07/17 09:00 11/06/17 08:59 10/12/17 08:20 81 MG Clopidogrel Bisulfate (plAVix TAB) 75 mg DAILY PO 10/07/17 09:00 11/06/17 08:59 Future Hold 10/07/17 08:15 75 MG Insulin Glargine (Lantus Solostar Pen) 16 units QPM SC 10/07/17 21:00 11/06/17 20:59 10/11/17 20:43 16 UNITS Lisinopril (Zestril Tab) 40 mg QAM PO 10/07/17 09:00 11/06/17 08:59 10/12/17 08:20 40 MG Metoprolol Succinate (Toprol Xl Tab) 50 mg BID PO 10/07/17 09:00 11/06/17 08:59 10/12/17 08:20 50 MG Risperidone (Risperdal Tab) 3 mg HS PO 10/07/17 21:00 11/06/17 20:59 10/11/17 20:38 3 MG Venlafaxine HCl (effeXOR EXTENDED REL CAP) 150 mg QAM PO 10/07/17 09:00 11/06/17 08:59 10/12/17 08:20 150 MG Venlafaxine HCl (effeXOR EXTENDED REL CAP) 75 mg QAM PO 10/07/17 09:00 11/06/17 08:59 10/12/17 08:20 75 MG Albuterol (Ventolin Hfa Inhaler) 2 puffs Q4 INH 1/12/18 12:00 11/09/17 11:59 10/12/17 13:19 2 PUFFS Albuterol Sulfate (Ventolin 0.5% 2.5MG/0.5ML Neb) 2.5 mg Q2H PRN INH 10/10/17 11:15 11/09/17 11:14 (Beatriz Peace ., PA-C) Objective Vital Signs Date Time Temp Pulse Resp B/P (MAP) Pulse Ox O2 Delivery O2 Flow Rate FiO2 10/12/17 08:00 Nasal Cannula 2.0 10/12/17 06:56 37.0 78 18 145/77 (99) 97 Nasal Cannula 2.0 10/12/17 00:00 Nasal Cannula 2.0 10/11/17 23:33 36.8 58 16 128/57 (80) 96 Nasal Cannula 2.0 10/11/17 21:08 96 Nasal Cannula 2.0 Humidified Oxygen 10/11/17 20:36 36.5 64 162/78 (106) 96 Room Air 10/11/17 16:00 Nasal Cannula 2.0 10/11/17 15:09 36.5 77 18 157/71 (99) 93 Nasal Cannula 2.0 (Beatriz Peace ., PA-C) Physical Exam General Appearance: no apparent distress, + pertinent finding (O2 NC ) Eyes: normal inspection, PERRL ENT: hearing grossly normal Neck: supple Respiratory/Chest: lungs clear, no respiratory distress, no accessory muscle use, + decreased breath sounds (R lung base ) Cardiovascular: regular rate, rhythm Abdomen: normal bowel sounds, non tender, soft Extremities: no pedal edema, no calf tenderness Neurologic/Psychiatric: alert, normal mood/affect, oriented x 3 Skin: normal color, warm/dry, no rash (Beatriz Peace ., PA-C) Laboratory Results Last 24 Hours Test 10/11/17 16:34 10/11/17 20:02 10/12/17 07:44 10/12/17 11:27 Bedside Glucose 181 mg/dl 149 mg/dl 114 mg/dl Pleural Fluid Source RIGHT LUNG Pleural Fluid Color YELLOW Pleural Fluid Appearance CLOUDY Pleural Fluid WBC 836 /uL Pleural Fluid RBC < 3000 /uL Pleural Fluid pH 7.38 Pleural Fluid Polynuclear WBCs % 19.4 % Pleural Fluid Mononuclear WBCs % 80.6 % Pleural Fluid Total Protein 4.2 g/dl Pleural Fluid LDH 135 IU Pleural Fluid Glucose 171 mg/dl Pleural Fluid Amylase 21 U/L Test 10/12/17 11:46 Bedside Glucose 139 mg/dl (Beatriz Peace PA-C) Assessment and Plan The patient is a 77-year-old female with a past medical history of diabetes, hypertension, depression, and recently an episode of pneumonia 1 month ago with discharge on 2 L of oxygen, that presents with a one-month history of shortness of breath that has worsened over the last 2 days. Acute on chronic hypoxic respiratory failure secondary to R pleural effusion: - Admitted to tele for cardiac monitoring- no acute events, transferred to med/ surg - Continue supplemental O2 and wean if tolerated- does NOT have O2 supplement at home- 2-step completed after thoracentesis and O2 sats dropped to 80s - Speech evaluation- aspiration precautions - ECHO Jul 2017- no mention of diastolic dysfunction, EF 60-70% - Pulmonary following - Plavix needed held x5 days prior to procedure (last dose 10/07) -- US showing 1300 mL, marked for tap -- s/p thoracentesis on 10/12- drained 1.3L, looked transudative, pleural studies pending -- Pulmonary to scheduled outpatient f/u Possible HCAP: - IV Zosyn- afebrile and without leukocytosis, procalcitonin negative- discontinued - Continue home inhalers and nebs PRN - BCx negative; MRSA swab negative T2DM- hgbA1c 6.1%: - Hold Metformin while inpatient - Lantus 16 units HS - BSG ACHS and ISS Carotid stenosis: Continue ASA 81 mg daily and hold Plavix with anticipated thoracentesis- resume Plavix tomorrow HTN: Lisinopril 40 mg daily, Norvasc 10 mg daily, and Toprol XL 50 mg BID Depression: Continue Effexor 225 mg daily DVT Prophylaxis: Heparin 5000 units SC Q8H Code Status: FULL RESUSCITATION Disposition: Discharge to home w/ family assistance once medically stable- hopefully tomorrow- CM and PT/OT following (Beatriz Peace PA-C) EDDI Physician Supervision Note: I interviewed and examined the patient. Discussed with Beatriz Peace PAC and agree with findings and plan as documented in the note. Any exceptions or clarifications are listed here: None This patient was seen after thoracentesis removing greater than 1 L she however had still developed dyspnea with exertion we'll continue to observe her and reevaluate her oxygen requirement after improving atelectasis status post a thoracentesis Vitals are reviewed she did desaturate to the lower 80s with ambulation Her cardiac exam is regular lungs had decreased breath sounds at both bases however the right is much better than left currently This patient status post pleural effusion which is suspected to be status post recent infection awaiting fluid analysis and continuing supplemental oxygen with possible need for home O2 Documented By: Scot Lindo (Scot Lindo M.D.)
[2017-10-12 15:33] VITALS: BP 142/70; PULSE 73; TEMP 36.4; O2SAT 92
[2017-10-12] MEDS: RISPERIDONE 3 MG TAB PO SCH (20:44)
[2017-10-12] MEDS: INSULIN GLARGINE SOLOSTAR 100 UNITS/ML 3 ML PEN SC SCH (20:46)
[2017-10-12 23:58] VITALS: BP 128/75; PULSE 63; TEMP 36.5; O2SAT 94
[2017-10-13] MEDS: ALBUTEROL HFA 8 GM INHALER INH SCH ×3 (04:00→12:12)
[2017-10-13 07:31] VITALS: BP 155/77; PULSE 69; TEMP 36.8; O2SAT 96
[2017-10-13 08:08] LABS: ALBUMIN 2.7 gm/dl (3.4-5.0); ALKALINE PHOSPHATASE 51 U/L (45-117); ALT/SGPT 21 U/L (12-78); AST/SGOT 12 U/L (15-37); TOTAL PROTEIN 6.3 gm/dl (6.4-8.2)
[2017-10-13] MEDS: AMLODIPINE BESYLATE 5 MG TAB PO SCH (08:35)
[2017-10-13] MEDS: METOPROLOL SUCC 50MG EXT REL TAB PO SCH (08:35)
[2017-10-13] MEDS: VENLAFAXINE HCL XR 150 MG CAPXR PO SCH (08:35)
[2017-10-13] MEDS: ASPIRIN 81 MG ECTAB PO SCH (08:35)
[2017-10-13] MEDS: LISINOPRIL 40 MG TAB PO SCH (08:35)
[2017-10-13] MEDS: VENLAFAXINE HCL XR 75 MG CAPXR PO SCH (08:36)
[2017-10-13] MEDS: INSULIN ASPART 100 UNITS/ML 3 ML PEN SC SCH ×2 (08:39→12:36)
[2017-10-13] MEDS ORDERED: OPTIRAY 320 IV PRN (10:00)
--- NOTE | 2017-10-13 11:15 | DIAGNOSTIC IMAGING REPORT ---
CT ANGIOGRAM OF THE CHEST COMBO CLINICAL HISTORY: Hypoxia. Dyspnea. COMPARISON STUDY: Chest CT scans dated 10/07/2017 and 07/22/2017. Chest x-ray dated 10/12/2017. TECHNIQUE: Before and following the IV administration of 89 cc of Optiray 320, CT angiogram of the chest was performed from the thoracic inlet to the upper abdomen utilizing the dissection protocol. Images are reviewed in the axial, sagittal, and coronal planes. 3-D MIPS images are created and assessed. IV contrast was administered without complication. A dose lowering technique was utilized adhering to the principles of ALARA. CT DOSE: 641.39 mGy.cm FINDINGS: Thyroid: Imaged portions of the thyroid gland are normal in size and attenuation. Thoracic aorta: There is atherosclerotic calcification of the thoracic aorta, which is normal in caliber and demonstrates standard 3-vessel arch anatomy. No dissection is seen. Pulmonary vasculature: The pulmonary trunk is normal in caliber. There are no central filling defects identified in the pulmonary vessels to suggest pulmonary embolus. Note that this examination was not specifically protocoled to assess for pulmonary emboli. Heart: The heart is mildly enlarged and without pericardial effusion. There are coronary artery calcifications. Lungs and pleural spaces: There is a small right pleural effusion. Patchy airspace consolidation is seen throughout the right lower lobe. Mild foci of consolidative change are also present in the right upper lobe. The left lung appears clear noting dependent atelectasis. The trachea and central airways are patent. Mediastinum: There is no mediastinal lymphadenopathy. Stefani: Clear. Axillae: There is no axillary lymphadenopathy. Upper abdomen: Bilateral adrenal adenomas are unchanged from previous. Partially visualized upper abdominal viscera is otherwise within normal limits. Skeletal structures: The skeletal structures are osteopenic. Arthritic change is noted in the shoulders and thoracic spine. No lytic or blastic bony lesions are seen. IMPRESSION: 1. There is no evidence of pulmonary embolus in the main, lobar, or segmental pulmonary arteries. 2. Cardiomegaly. 3. Small right pleural effusion with airspace consolidation throughout the right lung, greatest at the right lung base. This could represent pneumonia, asymmetric/reexpansion pulmonary edema, or less likely hemorrhage. Clinical correlation will be required. 4. The left lung appears clear. 5. Additional findings as above. Electronically signed by: Sebastian Aguilar M.D. 10/13/2017 11:13 AM Dictated Date/Time: 10/13/2017 11:07 AM
[2017-10-13 13:52] VITALS: BP 155/77; PULSE 69; TEMP 36.8; O2SAT 96
--- NOTE | 2017-10-13 15:31 | Discharge Summary ---
Discharge Summary Date of Service Oct 13, 2017. Discharge Summary Admission Date: Oct 07, 2017 at 01:50 Discharge Date: Oct 13, 2017 Discharge Disposition: Home Principal Diagnosis: Acute on Chronic Respiratory Failure 2/2 R Pleural Effusion Problems/Secondary Diagnoses: 1. Chronic Hypoxic Respiratory Failure - Since Previous PNA 2. Recent PNA 3. T2DM 4. Carotid Stenosis 5. HTN Immunizations: Have You Had Influenza Vaccine: Yes Influenza Vaccine Date: Aug 09, 2011 History of Tetanus Vaccine?: Yes Tetanus Immunization Date: Apr 08, 2007 History of Pneumococcal: Yes Pneumococcal Date: Apr 08, 2012 History of Hepatitis B Vaccine: No Procedures: CT ANGIOGRAM OF THE CHEST COMBO FINDINGS: Thyroid: Imaged portions of the thyroid gland are normal in size and attenuation. Thoracic aorta: There is atherosclerotic calcification of the thoracic aorta, which is normal in caliber and demonstrates standard 3-vessel arch anatomy. No dissection is seen. Pulmonary vasculature: The pulmonary trunk is normal in caliber. There are no central filling defects identified in the pulmonary vessels to suggest pulmonary embolus. Note that this examination was not specifically protocoled to assess for pulmonary emboli. Heart: The heart is mildly enlarged and without pericardial effusion. There are coronary artery calcifications. Lungs and pleural spaces: There is a small right pleural effusion. Patchy airspace consolidation is seen throughout the right lower lobe. Mild foci of consolidative change are also present in the right upper lobe. The left lung appears clear noting dependent atelectasis. The trachea and central airways are patent. Mediastinum: There is no mediastinal lymphadenopathy. Stefani: Clear. Axillae: There is no axillary lymphadenopathy. Upper abdomen: Bilateral adrenal adenomas are unchanged from previous. Partially visualized upper abdominal viscera is otherwise within normal limits. Skeletal structures: The skeletal structures are osteopenic. Arthritic change is noted in the shoulders and thoracic spine. No lytic or blastic bony lesions are seen. IMPRESSION: 1. There is no evidence of pulmonary embolus in the main, lobar, or segmental pulmonary arteries. 2. Cardiomegaly. 3. Small right pleural effusion with airspace consolidation throughout the right lung, greatest at the right lung base. This could represent pneumonia, asymmetric/reexpansion pulmonary edema, or less likely hemorrhage. Clinical correlation will be required. 4. The left lung appears clear. 5. Additional findings as above. EFFUSION-CHEST/MEDIASTINUM FINDINGS: No significant left pleural effusion mild central criteria. 1300 cc right pleural effusion. This was marked for later thoracentesis IMPRESSION: 1. 1300 cc right pleural effusion which was marked for later thoracentesis. 2. No significant left effusion (CHEST) THORAX WITHOUT FINDINGS: Interval development of a moderate to large right pleural effusion. This results in compressive atelectasis of the posterior aspects of the right upper lobe and right lower lobe. No pneumothorax. Nodular septal thickening with scattered groundglass airspace opacities suggestive of pulmonary edema. There are few small nodular opacities within the left lower lobe demonstrating a groundglass halo. This favors a component of the pulmonary edema or a mild infectious change. Central airways are patent. No suspicious lytic or blastic osseous lesions. No acute fractures within the visualized osseous structures. The visualized liver and spleen are unremarkable. Mild bilateral adrenal gland thickening, unchanged. A few borderline enlarged. Lymph nodes which have slightly increased in size. Normal caliber thoracic aorta. The heart is mildly enlarged. No significant pericardial effusion. IMPRESSION: 1. Interval development of a moderate to large right pleural effusion. 2. Mild cardiomegaly with mild pulmonary edema. 3. Prominent mediastinal lymph nodes which may be reactive. 4. Small nodular opacities within the left lower lobe demonstrating a groundglass halo. This could be due to pulmonary edema or mild infectious change. Consultations: 1. Pulmonology Medication Reconciliation Continued Medications: Albuterol (Ventolin Hfa) 60 Puffs/5400 Mcg Aers 2 PUFFS INH Q4H for SOB/Wheezing for 14 Days, #1 DOSE Amlodipine Besylate (Norvasc) 10 Mg Tab 10 MG PO QAM, TAB Aspirin (Aspirin Ec) 81 Mg Tab 81 MG PO QAM Cholecalciferol (Vitamin D3) 2,000 Unit Tab 2000 UNITS PO DAILY for 90 Days, TAB 3 Refills Clopidogrel Bisulfate (Clopidogrel) 75 Mg Tab 75 MG PO DAILY Insulin Aspart (Novolog Flexpen) 100 Units/Ml Inj 6-8 UNITS SQ TIDM Insulin Glargine (Lantus) 100 Unit/Ml Inj 16 UNITS SC QPM, VIAL Lisinopril (Zestril) 40 Mg Tab 40 MG PO QAM Metformin Hcl (Glucophage) 500 Mg Tab 500 MG PO BIDM, TAB PT NOT TAKING UNTIL FURTHER NOTICE. PT CALLING THE DR ROOT 10/08/17 FOR INSTRUCTIONS. Metoprolol Succinate (Toprol Xl) 50 Mg Tabcr 50 MG PO BID, #60 TABS 5 Refills Risperidone (Risperdal) 3 Mg Tab 3 MG PO HS Venlafaxine Hcl (Effexor Xr) 75 Mg Cap 75 MG PO QAM 225MG TOTAL Venlafaxine Hcl (Effexor Extended Rel) 150 Mg Cap 150 MG PO QAM 225MG TOTAL Discharge Exam Review of Systems: Constitutional: No fever, No chills Respiratory: + cough, + dyspnea on exertion, No sputum, No dyspnea at rest Cardiovascular: No chest pain Abdomen: No pain, No nausea, No vomiting, No diarrhea, No constipation Musculoskeletal: No swelling, No calf pain Genitourinary - Female: No dysuria Hematologic / Lymphatic: No abnormal bleeding/bruising Physical Exam: General Appearance: WD/WN, no apparent distress Eyes: sclerae normal ENT: hearing grossly normal Neck: supple, no JVD, trachea midline Respiratory/Chest: no respiratory distress, no accessory muscle use, + decreased breath sounds (bases b/l with improved airflow specifically in the R lung boyd compared to previous exams; L lung boyd clear otherwise) Cardiovascular: regular rate, rhythm Abdomen / GI: normal bowel sounds, non tender, soft Extremities: no pedal edema Neurologic/Psychiatric: alert, oriented x 3 Skin: normal color, warm/dry Hospital Course ADMISSION: The patient is a 77-year-old female with a past medical history of diabetes, hypertension, depression, and recently an episode of pneumonia 1 month ago with discharge on 2 L of oxygen, that presents with a one-month history of shortness of breath that has worsened over the last 2 days. The family states that she has been struggling to breathe over the last few days, gasping for air and also using accessory abdominal muscles in order to breathe. The patient has been on 2 L of oxygen since discharge from the hospital after experiencing her pneumonia. The family states that she experiences pneumonia after initially having been admitted to the hospital for concerns over a possible stroke. Before her episode of pneumonia, the patient never experienced any episodes of shortness of breath or chest pain. The patient has not had any flulike symptoms including fevers, chills, cough, or productive sputum. The patient does have an approximate [id number]-edpf smoking history. The patient was prescribed an albuterol inhaler as needed for wheezing on discharge. The patient was in the hospital earlier today for an MRI brain and CTA of the neck. HOSPITAL COURSE: Ms. Alfaro was admitted for Acute on Chronic Respiratory Failure 2/2 R Pleural Effusion. She was recently admitted for a pneumonia which was aggressively treated at that time. During admission she was treated with Zosyn but remained afebrile and without leukocytosis. Procalcitonin was negative. However, clinically seemed to improve with IV Abx and appeared to have some improved aeration of the R lung boyd. She is S/P Thoracentesis on and she tolerated the procedure well with 1.3 L removed. Unfortunately still requiring supplemental O2. Currently needs 2 L continuous. Completed 2-step for this. Fluid analysis is still pending. Did perform CT to R/O other sources of hypoxia with no evidence of PE and still shows consolidation which could be related to re-expansion issues? Will likely need further evaluation and hopefully can continue to wean of O2. During admission she did have bedside swallow that did not show overt aspiration as a contributor. Given her smoking history could consider PFTs to further evaluate underlying lung disease. There is also a possibility of loculated areas? Encouraged her to take deep breaths and to sit up as much as tolerated to encourage lung expansion. Will hold on further antibiotics at this time. PA Physician Supervision Note: I interviewed and examined the patient. Discussed with Britni Tavarez PAC and agree with findings and plan as documented in the note. Any exceptions or clarifications are listed here: None Patient presented with concerns for continued dyspnea after recently being treated for pneumonia after that discharge did require oxygen when she reports that she had a pleural effusion which was concern for a empyema this however did not show any significant findings consistent with such. She remained hypoxic and we felt this might be secondary to atelectasis however despite aggressive reinforcement of incentive spirometry and she remained hypoxic. The patient does have a history of smoking in her life and the concern may be that she does have some smoking-related lung injury we will have her go home on oxygen with a pulmonary follow-up prior to her leaving we did perform a CT scan with contrast showing no pulmonary embolism and improvement of the area affected by her pleural effusion Her vitals were stable with exception of exertional hypoxia she'll remain on oxygen as previously prescribed at home Her lungs were more clear with only scant crackles at the bases she did improve but not resolve with deep inspiration Postinfectious pleural effusion which is transudate of and persistent hypoxia which may be from tobacco related lung injury, referral to outpatient for continued diagnosis and treatment in pulmonary clinic Documented By: Scot Lindo Total Time Spent: Greater than 30 minutes This includes examination of the patient, discharge planning, medication reconciliation, and communication with other providers. Discharge Instructions Please refer to the electronic Patient Visit Report (Discharge Instructions) for additional information. Additional Copies To Tab Bellamy M.D.; Megan Gtz PA-C
== END 2017-10-13 15:36 | disposition home or self-care (01) | DRG 186 ==
LOC: C.EDB 20:45 → C.MED 10-07 01:50 → ENRESERV 10-07 02:25 → C.MS4W 10-12 15:19
PROVIDERS: ADMIT Student in an Organized Health Care Education/Training Program; ATTEND Internal Medicine
PROC: 0W993ZZ Drainage of Right Pleural Cavity, Percutaneous Approach (ICD-10-PCS; principal; 2017-10-12)
DX: J90 Pleural effusion, not elsewhere classified (principal); J18.9 Pneumonia, unspecified organism; J96.21 Acute and chronic respiratory failure with hypoxia; E11.9 Type 2 diabetes mellitus without complications; F32.9 Major depressive disorder, single episode, unspecified; I10 Essential (primary) hypertension; Z86.73 Personal history of transient ischemic attack (TIA), and cerebral infarction without residual deficits; Z79.82 Long term (current) use of aspirin; Z79.899 Other long term (current) drug therapy; Z79.4 Long term (current) use of insulin; I65.29 Occlusion and stenosis of unspecified carotid artery

== ENCOUNTER → 2017-10-06 | Outpatient (CLI) | payer OTHER ==
[~2017-10-06] MED LIST changes: +LVQ750 PO; +OPTIRAY 320 IV PRN; +PLMINS INH; +PLV75 PO; +PRVHFAIN INH
--- NOTE | 2017-10-06 08:12 | DIAGNOSTIC IMAGING REPORT ---
BRAIN WITHOUT CONTRAST HISTORY: Mental status change R47.9 Speech [id number] TECHNIQUE: Multiplanar multisequence MRI of the brain was performed without the use of contrast. COMPARISON STUDY: 04/06/2012 FINDINGS: Diffusion images are negative for an acute ischemic insult. Signal characteristics are considered unremarkable within the cerebellar as well as cerebral hemispheres. The ventricular system is midline. Sella and parasellar regions are within normal limits. Internal artery canals are symmetric. IMPRESSION: Normal study. No change from the prior exam. The above report was generated using voice recognition software. It may contain grammatical, syntax or spelling errors. Electronically signed by: Jamar Vanegas M.D. 10/06/2017 8:11 AM Dictated Date/Time: 10/06/2017 8:07 AM
--- NOTE | 2017-10-06 09:16 | DIAGNOSTIC IMAGING REPORT ---
NECK CTA HISTORY: Carotid artery stenosis. Abnormal carotid Doppler study. TECHNIQUE: Multiaxial CT images of the neck were performed both before and after the intravenous administration of contrast to evaluate the major cervical vessels. Maximum intensity projection images were also obtained. All measurements were calculated based on NASCET criteria. A dose lowering technique was utilized adhering to the principles of ALARA. COMPARISON STUDY: Carotid Doppler 07/28/2017. FINDINGS: Mild calcified plaque within the aortic arch and mild to moderate calcified plaque within the bilateral carotid bifurcations. Partially visualized moderate to large right pleural effusion. The visualized aortic arch and proximal great vessels are widely patent. No significant stenosis within the bilateral common carotid arteries or vertebral arteries. High-grade stenosis of greater than 80% at the origin of the right external carotid artery. There is approximately 50% stenosis at the origin of the left external carotid artery. There is approximately 30% stenosis at the takeoff of the left internal carotid artery. High-grade stenosis of approximately 80% at the takeoff of the right internal carotid artery. The bilateral mid to distal internal carotid arteries are widely patent. IMPRESSION: 1. Approximately 80% stenosis at the takeoff of the right internal carotid artery and right external carotid artery. 2. Approximately 30% stenosis at the takeoff of the left internal carotid artery. 3. The bilateral vertebral arteries are widely patent. 4. Partially visualized moderate to large right pleural effusion. Electronically signed by: Willam Reyes M.D. 10/06/2017 9:14 AM Dictated Date/Time: 10/06/2017 9:07 AM
== END | disposition home or self-care (01) ==
LOC: C.MRI 07:29
PROVIDERS: ATTEND Psychiatry & Neurology Neurology
DX: I65.29 Occlusion and stenosis of unspecified carotid artery (principal); R47.9 Unspecified speech disturbances

== ENCOUNTER → 2017-10-20 | Outpatient (CLI) | payer OTHER ==
[~2017-10-20] MED LIST changes: -CHOL100027 PO; -LVQ750 PO; -PLMINS INH
--- NOTE | 2017-10-20 12:12 | DIAGNOSTIC IMAGING REPORT ---
TWO VIEW CHEST CLINICAL HISTORY: Pleural effusion. Pneumonia. FINDINGS: PA and lateral chest radiographs are compared to study dated 10/12/2017 and correlated with chest CT dated 10/13/2017. The heart is enlarged and there is atherosclerotic calcification of the thoracic aorta. The pulmonary vasculature is noncongested. A right pleural effusion with associated right basilar consolidation persists. The left lung is grossly clear. There is no pneumothorax. The skeletal structures are osteopenic. The bony thorax appears intact. IMPRESSION: 1. Cardiomegaly without radiographic evidence of congestive failure. 2. A right pleural effusion with associated right basilar consolidation has not significantly changed from 10/12/2017. Electronically signed by: Sebastian Aguilar M.D. 10/20/2017 12:11 PM Dictated Date/Time: 10/20/2017 12:09 PM
== END | disposition home or self-care (01) ==
LOC: C.RAD1850 11:25
PROVIDERS: ATTEND Physician Assistant Medical
DX: J18.9 Pneumonia, unspecified organism (principal); J90 Pleural effusion, not elsewhere classified

== ENCOUNTER → 2017-11-25 | Outpatient (CLI) | payer OTHER ==
--- NOTE | 2017-11-25 10:13 | DIAGNOSTIC IMAGING REPORT ---
CHEST 2 VIEWS ROUTINE HISTORY: 77 years-old Female PLEURAL EFFUSION ON RIGHT; PNEUMONIA follow-up study in a patient with right-sided pleural effusion COMPARISON: Chest radiographs 10/20/2017, CTA of the chest 10/13/2017 TECHNIQUE: PA and lateral views of the chest FINDINGS: Cardiac silhouette is again mildly enlarged, unchanged. Unchanged right pleural effusion appears small with subsegmental linear right basilar opacities. There is mild blunting of the left costophrenic angle which is unchanged suggesting atelectasis/scarring. No pneumothorax. Atherosclerosis of the aorta. Bones of the chest are grossly intact. IMPRESSION: 1. Unchanged right pleural effusion with subsegmental right basilar opacities suggesting compressive atelectasis. 2. Cardiomegaly without overt pulmonary edema. The above report was generated using voice recognition software. It may contain grammatical, syntax or spelling errors. Electronically signed by: Silver Childress M.D. 11/25/2017 10:11 AM Dictated Date/Time: 11/25/2017 10:03 AM
== END | disposition home or self-care (01) ==
LOC: C.RAD1850 09:56
PROVIDERS: ATTEND Internal Medicine Pulmonary Disease
DX: J18.9 Pneumonia, unspecified organism (principal); J90 Pleural effusion, not elsewhere classified

== ENCOUNTER → 2018-02-05 | Outpatient (CLI) | payer OTHER ==
--- NOTE | 2018-02-06 07:48 | MAMMOGRAPHY REPORT ---
BILATERAL DIGITAL SCREENING MAMMOGRAM TOMOSYNTHESIS WITH CAD: 02/05/2018 CLINICAL HISTORY: Routine screening. Patient has no complaints. TECHNIQUE: Breast tomosynthesis in addition to standard 2D mammography was performed. Current study was also evaluated with a Computer Aided Detection (CAD) system. COMPARISON: Comparison is made to exams dated: 06/04/2016 mammogram, 05/30/2015 mammogram, 03/03/2014 mamm ogram, 02/24/2013 mammogram, 07/16/2012 mammogram, and 01/10/2012 mammogram - [facility]. BREAST COMPOSITION: There are scattered areas of fibroglandular density in both breasts. FINDINGS: No suspicious masses, calcifications, or areas of architectural distortion are noted in ei ther breast. There has been no significant interval change compared to prior exams. Scattered bilater al benign-appearing calcifications are not significantly changed. There is stable postsurgical archi tectural distortion in the right breast at approximately 12:00 from prior benign surgical excision in 2005. IMPRESSION: ACR BI-RADS CATEGORY 2: BENIGN There is no mammographic evidence of malignancy. A 1 year screening mammogram is recommended. The pa tient will receive written notification of the results. Approximately 10% of breast cancers are not detected with mammography. A negative mammographic report should not delay biopsy if a clinically suggestive mass is present. Barbara Cox M.D. /:02/05/2018 07:43:07 Contingents Supervisor: Maribel [facility] letter sent: Normal 1/2 BI-RADS Code: ACR BI-RADS Category 2: Benign
== END | disposition home or self-care (01) ==
LOC: C.MAMM 07:04
PROVIDERS: ATTEND Internal Medicine Pulmonary Disease
DX: Z12.31 Encounter for screening mammogram for malignant neoplasm of breast (principal)

== ENCOUNTER 2018-02-07 16:34 | Emergency (ER) | payer OTHER ==
[~2018-02-07] VITALS: Ht 152.4 cm; Wt 93.7 kg
[~2018-02-07 16:34] MED LIST changes: -METF500T PO; -PLV75 PO
[2018-02-07 16:36] VITALS: TEMP 36.6; Ht 152.4 cm; Wt 93.7 kg
[2018-02-07] MEDS ORDERED: LIDOCAINE/EPINEPHRINE 1% 20 ML VIAL INFIL STA (16:39)
[2018-02-07] MEDS ORDERED: AMOX875T PO (17:13)
[2018-02-07] MEDS ORDERED: AMOXICILLIN/CLAVULANATE TAB 875 MG TAB PO ONE (17:15)
[2018-02-07] MEDS ORDERED: METO50TA8 PO (17:18)
--- NOTE | 2018-02-07 17:42 | EMERGENCY ROOM VISIT NOTE ---
History Report prepared by Scott: Kraig Villanueva Under the Supervision of: Dr. Román Gary M.D. First contact with patient: 16:35 Stated Complaint: R LOWER LEG 4"LAC/TEAR History of Present Illness The patient is a 77 year old female who presents to the Emergency Room with complaints of persistent right lower leg pain beginning prior to arrival. She rates her pain as a 2/10 in severity. The patient states she was trying to walk into her neighbor's house for baking supplies when her shoe slipped. She reports she ended up falling and cutting her right lower leg. The patient states she takes Plavix and was having difficulty stopping the bleeding initially. She reports the site is currently no longer actively bleeding but she states the area is "burning". She states she does not remember when her last tetanus shot was. She denies hitting her head or syncope. Source of History: patient Onset: [employer] Position: leg (right) Symptom Intensity: 2/10 Quality: burning Timing: other (persistent) Associated Symptoms: No LOC Review of Systems See HPI for pertinent positives & negatives. A total of 10 systems reviewed and were otherwise negative. Past Medical & Surgical Medical Problems: (1) Depression (2) DM (diabetes mellitus) (3) HCAP (healthcare-associated pneumonia) (4) HTN (hypertension) (5) Kidney disease (6) Pleural effusion (7) TIA (transient ischemic attack) Surgical Problems: (1) Hx of tonsillectomy Family History Diabetes mellitus Heart disease Hypertension Social History Smoking Status: Former Smoker Alcohol Use: none Drug Use: none Marital Status: single, Housing Status: lives with family Occupation Status: retired Current/Historical Medications Scheduled Albuterol (Ventolin Hfa), 2 PUFFS INH Q4H Amlodipine Besylate (Norvasc), 10 MG PO QAM Amoxicillin & Pot Clavulanate (Augmentin 875-125 mg), 1 TAB PO BID Cholecalciferol (Vitamin D3), 2,000 UNITS PO DAILY Clopidogrel Bisulfate (Clopidogrel), 75 MG PO DAILY Insulin Aspart (Novolog Flexpen), 6-8 UNITS SQ TIDM Insulin Glargine (Lantus), 16 UNITS SC QPM Lisinopril (Zestril), 40 MG PO QAM Metformin Hcl (Glucophage), 500 MG PO BIDM Metoprolol Succ (Toprol Xl) (Toprol-Xl), 50 MG PO DAILY Risperidone (Risperdal), 3 MG PO HS Venlafaxine Hcl (Effexor Xr), 75 MG PO QAM Venlafaxine Hcl (Effexor Extended Rel), 150 MG PO QAM Allergies Coded Allergies: Bacitracin (Verified Allergy, Unknown, UNKNOWN, 10/06/17) Polymyxin B (Verified Allergy, Unknown, UNKNOWN, 10/06/17) Adhesives (Verified Adverse Reaction, Mild, RED AND ITCHY, 10/06/17) Physical Exam Vital Signs Date Time Temp Pulse Resp B/P (MAP) Pulse Ox O2 Delivery O2 Flow Rate FiO2 02/07/18 17:44 68 20 175/65 94 02/07/18 17:39 68 20 175/65 94 Room Air 02/07/18 16:36 36.6 71 22 181/55 93 Room Air Physical Exam GENERAL: Awake, alert, well-appearing, in no acute distress HENT: Normocephalic, atraumatic. Oropharynx unremarkable. EYES: Normal conjunctiva. Sclera non-icteric. NECK: Supple. No nuchal rigidity. FROM. No JVD. RESPIRATORY: Clear to auscultation. CARDIAC: Regular rate, normal rhythm. Extremities warm and well perfused. Pulses equal. ABDOMEN: Soft, non-distended. No tenderness to palpation. No rebound or guarding. No masses. RECTAL: Deferred. MUSCULOSKELETAL: Chest examination reveals no tenderness. The back is symmetrical on inspection without obvious abnormality. There is no CVA tenderness to palpation. No joint edema. LOWER EXTREMITIES: Calves are equal size bilaterally and non-tender. No edema. No discoloration. 5 cm curvilinear laceration to the right mena. NEURO: Normal sensorium. No sensory or motor deficits noted. SKIN: No rash or jaundice noted. Medical Decision & Procedures Medications Administered Medications (Trade) Dose Ordered Sig/Jakub Route Start Time Stop Time Status Last Admin Dose Admin Amoxicillin/ Clavulanate Potassium (Augmentin Tab) 875 mg ONE ONCE PO 02/07/18 17:15 02/07/18 17:16 DC 02/07/18 17:20 875 MG Procedure Location: Right lower extremity Total length: 5 cm Complexity: Simple Verbal consent was obtained after the risks and benefits were explained, including but not limited to bleeding, scarring, infection, pain, and bone/joint /nerve damage. At this time, the risks of the procedure are less than the risks of NOT performing the procedure. A time out was taken and the correct patient and site identified. The skin was prepped with betadine. The target area was anesthetized with 10 ml of 1% lidocaine without epinephrine. Copious irrigation was performed using 1000 ccs normal saline. The skin was re-prepped with betadine and a sterile field set. The wound was explored for foreign bodies and none found. Examination revealed no injury to deep structures such as tendons, bone, or significant blood vessels. Debridement was not performed. The wound edges were approximated using 10, 4-0 simple interrupted nylon sutures. Hemostasis and excellent approximation was achieved. Antibacterial ointment and a sterile dressing applied. Detailed wound care instructions and signs and symptoms of infection reviewed with the the patient. No complications and the patient tolerated the procedure well. ED Course 1637: Past medical records reviewed. The patient was evaluated in room B04B. A complete history and physical examination was performed. 1639: Ordered Lidocaine/Epinephrine 20 ml INFIL. 1641: I performed a laceration repair. See procedure notes for further detail. 1653: I discussed the treatment plan with the patient, which she agrees to. The patient is ready for discharge. 1715: Ordered Amoxicillin/ Clavulanate Potassium 875 mg PO. 1745: Ordered Adacel Injection 0.5 ml IM. Medical Decision This is a 77-year-old female who presents the emergency department complaining of laceration to the leg. Laceration was repaired as above, the patient was started on Augmentin because I am concerned that the patient is at high risk for infection based on chronic venous stasis changes to her leg. She was also given a Tdap shot. The laceration was closed as above. I strongly recommended pressure dressing as well as compression stockings for the patient. Patient and family were in agreement with the treatment plan. I also offered to have the patient follow-up with wound clinic. Medication Reconcilliation Current Medication List: was personally reviewed by me Blood Pressure Screening Patient's blood pressure: Elevated blood pressure Blood pressure disposition: Referred to PCP Impression Primary Impression: Laceration Scribe Attestation The scribe's documentation has been prepared under my direction and personally reviewed by me in its entirety. I confirm that the note above accurately reflects all work, treatment, procedures, and medical decision making performed by me. Departure Information Dispostion Home / Self-Care Prescriptions Amoxicillin & Pot Clavulanate (Augmentin 875-125 mg) 1 Tab Tab 1 TAB PO BID for 10 Days, #20 TAB Prov: Román Gary MD 02/07/18 Referrals Tab Bellamy M.D. (PCP) Patient Instructions ED Laceration Sure Close, ED Stockings [place], Merly [facility] [address] Additional Instructions Follow up with Wound care Keep wound clean, dry, and elevated Return if you develop red streaking or pus from wound You were found to have an elevated blood pressure today (>120 sytolic or >90 diastolic). Per medicare guidelines, you need to follow up with this blood pressure screening with your Primary Care Physician (PCP). For a new PCP call [phone]. You have been examined and treated today on an emergency basis only. This is not a substitute for, or an effort to provide, complete comprehensive medical care. It is impossible to recognize and treat all injuries or illnesses in a single emergency department visit. It is therefore important that you follow up closely with Dr Bellamy. Call as soon as possible for an appointment. Thank you for your time and consideration. I look forward to speaking with you again soon. Please don't hesitate to call us if you have any questions.
[2018-02-07 17:44] VITALS: BP 175/65; PULSE 68; O2SAT 94
[2018-02-07] MEDS ORDERED: DIPHTHERIA/TETANUS/PERTUSSIS 0.5 ML SYR/VIAL IM. ONE (17:45)
[2018-02-07] MEDS ORDERED: METF500T PO (18:29)
[2018-02-07] MEDS ORDERED: PLV75 PO (23:37)
== END 2018-02-07 17:44 | disposition home or self-care (01) ==
LOC: C.EDB 16:34
DX: S81.811A Laceration without foreign body, right lower leg, initial encounter (principal); W18.30XA Fall on same level, unspecified, initial encounter; Y92.009 Unspecified place in unspecified non-institutional (private) residence as the place of occurrence of the external cause; I87.8 Other specified disorders of veins; E11.9 Type 2 diabetes mellitus without complications; I10 Essential (primary) hypertension; Z79.01 Long term (current) use of anticoagulants; Z79.4 Long term (current) use of insulin; Z79.84 Long term (current) use of oral hypoglycemic drugs; Z87.891 Personal history of nicotine dependence; Z79.899 Other long term (current) drug therapy; Z79.51 Long term (current) use of inhaled steroids; Z88.8 Allergy status to other drugs, medicaments and biological substances; Z91.048 Other nonmedicinal substance allergy status; Z23 Encounter for immunization

== ENCOUNTER → 2018-02-18 | Outpatient (CLI) | payer OTHER ==
[~2018-02-18] MED LIST changes: +AMOX875T PO; -ASPI81TA28 PO; +METF500T PO; -METO-217 PO; +METO50TA8 PO; +PLV75 PO
[2018-02-18 17:43] LABS: HEMATOCRIT 38.8 % (37-47); HEMOGLOBIN 12.9 g/dL (12.0-16.0); MEAN CELL VOLUME 80.7 fL (80-100); MEAN CORPUSCULAR HEMOGLOBIN 26.8 pg (25-34); MEAN CORPUSCULAR HGB CONC 33.2 g/dl (32-36); MEAN PLATELET VOLUME 10.3 fL (7.4-10.4); PLATELET COUNT 259 K/uL (130-400); RED CELL DISTRIBUTION WIDTH CV 15.7 % (11.5-14.5); RED CELL DISTRIBUTION WIDTH SD 46.5 fL (36.4-46.3)
[2018-02-18 18:07] LABS: ALBUMIN 3.9 gm/dl (3.4-5.0); BLOOD UREA NITROGEN 22 mg/dl (7-18); CARBON DIOXIDE 34 mmol/L (21-32); CREATININE 0.96 mg/dl (0.60-1.20); GLUCOSE 113 mg/dl (70-99); POTASSIUM 4.3 mmol/L (3.5-5.1); SODIUM 132 mmol/L (136-145)
== END | disposition home or self-care (01) ==
LOC: C.LAB1850 17:16
PROVIDERS: ATTEND Internal Medicine Nephrology
DX: I12.9 Hypertensive chronic kidney disease with stage 1 through stage 4 chronic kidney disease, or unspecified chronic kidney disease (principal); N18.3 Chronic kidney disease, stage 3 (moderate); E55.9 Vitamin D deficiency, unspecified; R80.9 Proteinuria, unspecified; R60.9 Edema, unspecified

== ENCOUNTER 2021-01-21 18:30 | Inpatient (IN) ==
[2021-01-21] MEDS ORDERED: NITROGLYCERIN SL 0.4 MG/TAB TAB SL STA (19:02)
[2021-01-21] MEDS ORDERED: NITROGLYCERIN SL 0.4 MG/TAB TAB ONE ×2 (19:05)
--- NOTE | 2021-01-21 19:24 | XRay Report ---
XR chest 1V portable CLINICAL HISTORY: sob chf COMPARISON STUDY: Chest radiograph November 25, 2017. FINDINGS: There is no pneumothorax. Small bilateral pleural effusions are noted with bibasilar opacit ies. Interstitial thickening represents pulmonary edema. Cardiomediastinal silhouette is stable. IMPRESSION: Interstitial pulmonary edema with small bilateral pleural effusions. ACT 112: Negative or not required by law. Electronically signed by: Wolf Elizalde M.D. 01/21/2021 7:22 PM
[2021-01-21 19:43] LABS: Basophils # (auto) 0.01 K/uL (0-0.2); Basophils % (auto) 0.1 %; Eosinophils # (auto) 0.04 K/uL (0-0.5); Eosinophils % (auto) 0.4 %; Hematocrit (blood only) 39.2 % (37-47); Immature Granulocytes # (auto) 0.03 K/uL (0.00-0.02); Immature Granulocytes % (auto) 0.3 %; Lymphocytes # (auto) 0.84 K/uL (1.2-3.4); Mean Corpuscular Hemoglobin 27.3 pg (25-34); Mean Corpuscular Hgb Conc 33.2 g/dL (32-36); Mean Corpuscular Volume 82.2 fL (80-100); Mean Platelet Volume 11.5 fL (7.4-10.4); Monocytes # (auto) 0.74 K/uL (0.11-0.59); Monocytes % (auto) 7.9 %; Neutrophils # (auto) 7.66 K/uL (1.4-6.5); Neutrophils % (auto) 82.3 %; Platelet Count 218 K/uL (130-400); RDW Coefficient of Variation 16.4 % (11.5-14.5); RDW Standard Deviation 49.1 fL (36.4-46.3); Red Blood Count 4.77 M/uL (4.2-5.4); White Blood Count 9.32 K/uL (4.8-10.8)
[2021-01-21 19:49] LABS: Base Excess ABG 5.7 mEq/L (-9-1.8); HCO3 ABG 32 mmol/L (19-24); Oxygen Saturation ABG 95.4 % (90-95); PCO2 ABG 53 mmHg (35-46); PO2 ABG 76 mmHg (80-95)
[2021-01-21 19:51] LABS: Allen Test Pos (Pos)
[2021-01-21 19:53] LABS: INR 1.1 (0.9-1.1); Partial Thromboplastin Ratio 1.1; Partial Thromboplastin Time 28.5 Seconds (21.0-31.0); Prothrombin Time 11.4 Seconds (9.0-12.0)
[2021-01-21 20:00] LABS: Alanine Aminotransferase 87 U/L (12-78); Albumin Level 3.2 gm/dl (3.4-5.0); Aspartate Aminotransferase 39 U/L (15-37); BUN Creatinine Ratio 31.9 (10-20); Bilirubin Direct < 0.1 mg/dl (0-0.2); Blood Urea Nitrogen 33 mg/dl (7-18); Calcium 8.9 mg/dl (8.5-10.1); Carbon Dioxide 31 mmol/L (21-32); Chloride 100 mmol/L (98-107); Est GFR (African American) 57.9; Glucose 112 mg/dl (70-99); Potassium 4.3 mmol/L (3.5-5.1); Sodium 136 mmol/L (136-145)
[2021-01-21 20:05] LABS: Alkaline Phosphatase 68 U/L (45-117); Bilirubin,Total 0.4 mg/dl (0.2-1); NT Pro B Type Natriuretic Pept 1482 pg/ml (0-1800); Total Protein 6.5 gm/dl (6.4-8.2)
[2021-01-21 20:50] LABS: Influenza A virus by PCR Negative (Neg); Influenza B virus by PCR Negative (Neg); RSV by PCR Negative (Neg); SARS CoV2 RNA(COVID-19) InHosp NEGATIVE (Negative)
[2021-01-21] MEDS ORDERED: FUROSEMIDE 40 MG/4 ML VIAL IV STA (20:54)
--- NOTE | 2021-01-21 21:33 | Emergency Department Note ---
History of Present Illness General Chief Complaint: Illness Stated Complaint: SOB, WEAKNESS, ABNORMAL INCONTINENCE Time Seen by Provider: 01/21/21 18:54 History of Present Illness Provider Complaint: shortness of breath Onset (ago): month(s) (1) Severity: moderate Consistency/Duration: + progressively worsening Maximum Pain Intensity: 2 Relieved By: + upright position Exacerbated By: + lying flat and + exertion Context: no recent illness, no choking/aspiration, no medication noncompliance, no recent travel, no trauma/injury and no CO exposure Associated symptoms: + cough, + orthopnea and + polyuria; no chest pain, no pain with inspiration, no fever, no wheezing, no sputum production, no paresthesias, no palpitations, no hemoptysis, no diaphoresis, no syncope, no abdominal pain, no chest congestion and no lightheadedness Treatment prior to arrival: none Home Medications Medication Instructions Recorded Confirmed Type lancets 30 gauge #25 ea 05/04/19 12/04/20 History pen needle,diabetic dual safty 30 #100 ea 05/04/19 12/04/20 History gauge x 3/16" venlafaxine 75 mg capsule,extended 75 mg PO DAILY cap 05/04/19 01/21/21 History release 24 hr OneTouch Ultra Blue Test Strip #400 ea NS 06/11/19 12/04/20 Rx cholecalciferol (vitamin D3) 50 2,000 units PO DAILY tab 06/21/19 01/21/21 History mcg (2,000 unit) tablet risperidone 3 mg tablet 3 mg PO DAILY tab 06/21/19 01/21/21 History venlafaxine 150 mg 150 mg PO DAILY 07/27/19 01/21/21 History capsule,extended release 24 hr albuterol sulfate 90 mcg/actuation 1 puffs INH Q6H PRN 09/17/19 01/21/21 History aerosol inhaler hydrochlorothiazide 25 mg tablet 25 mg PO DAILY 09/17/19 01/21/21 History lisinopril 40 mg tablet 40 mg PO DAILY #90 tab 12/24/19 01/21/21 Rx clopidogrel 75 mg tablet 75 mg PO DAILY #30 tab 06/27/20 01/21/21 Rx atorvastatin 40 mg tablet 40 mg PO DAILY #90 tab 10/18/20 01/21/21 Rx mupirocin 1 applic TOPICAL BID #15 g 11/30/20 01/21/21 Rx metoprolol succinate 50 mg 50 mg PO DAILY #90 tab 12/27/20 01/21/21 Rx tablet,extended release 24 hr insulin aspart U-100 100 unit/mL 50 unit SQ DAILY 90 Days #45 ml 01/11/21 01/21/21 Rx (3 mL) subcutaneous pen amlodipine 10 mg tablet 10 mg PO DAILY #90 tab 01/12/21 01/21/21 Rx insulin glargine [Lantus Solostar 16 unit SQ HS 01/21/21 01/21/21 History U-100 Insulin] metformin 500 mg PO BID 01/21/21 01/21/21 History Allergies Allergy/AdvReac Type Severity Reaction Status Date / Time bacitracin Allergy Unknown UNKNOWN Verified 01/21/21 20:39 polymyxin B Allergy Unknown UNKNOWN Verified 01/21/21 20:39 neomycin Allergy Verified 01/21/21 20:39 [From Neosporin ([id number])] adhesive AdvReac Mild RED AND Verified 01/21/21 20:39 ITCHY Bandaid Allergy Mild red and Uncoded 01/21/21 20:39 itchy 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) Vitamin D deficiency Surgical History History of cataract surgery History of dilatation and curettage History of ear surgery approx 1984 Hx of tonsillectomy Family History Family/Other Family history of coronary arteriosclerosis Depression Mother Cardiovascular disease Diabetes Other Family history of bleeding disorder No family history of adverse response to anesthesia Social History Smoking Status: Former smoker Tobacco Type: Cigarettes packs per day: 1; Years Smoked: 20; Hx Alcohol Use: No Hx Substance Use: No Preferred Language: Haitian marital status: / Current Living Situation: Family current occupational status: retired Feels Safe at Home: Yes Review of Systems A total of 10 systems reviewed and were otherwise negative Physical Exam Vital Signs: Vital Signs - 24 hr 01/21/21 18:46 01/21/21 19:12 01/21/21 21:04 Temperature 36.6 C Temperature Source Temporal Artery Sc an Pulse Rate 43 L Pulse Rate [Right Radial] 44 L 38 L Respiratory Rate 18 22 20 Respiratory Effort / Characteristics Spontaneous Short of Breath Non-Labored Sponta neous Non-Labored Sponta neous Respiratory Patter n Regular Blood Pressure 223/89 H Blood Pressure Fallon n 133 Blood Pressure Pos ition Sitting Pulse Oximetry 88 L 95 96 Oxygen Delivery Me thod Room Air High Flow Nasal Ca nnula High Flow Nasal Ca nnula Oxygen Flow Rate 20 20 Fraction of Inspir ed Oxygen 40 40 Sepsis Recent Feve r Within 48 Hours No Sepsis New/Unexpla ined Change in Men miguel Status N/A Sepsis Action Take n by Nursing No Action Required Physical Exam: Physical Exam HENT: Exam performed. -Head: Normocephalic and atraumatic. -Right Ear: External ear normal. No mastoid tenderness. -Left Ear: External ear normal. No mastoid tenderness. -Mouth/Throat: The oropharynx is clear and moist. No trismus in the jaw. No dental abscesses or uvula swelling. No oropharyngeal exudate or tonsillar abscesses. EYES: Conjunctivae and EOM are normal. Pupils are equal, round, and reactive to light. Right eye exhibits no discharge. Left eye exhibits no discharge. No scleral icterus. NECK: Normal range of motion. Neck supple. No JVD present. No spinous process tenderness present. No carotid bruit present. No rigidity. No tracheal deviation and normal range of motion present. No Brudzinski's sign and no Kernig's sign noted. CV: Normal rate, regular rhythm, normal heart sounds and intact distal pulses. Palpable radial pulses bue. PULM/CHEST: Effort normal and breath sounds normal. No respiratory distress. No stridor. She has no wheezes. She has no rales. -Chest Wall: She exhibits no tenderness. ABD: The abdomen is soft. Bowel sounds are normal. She has no distension. No mass is present. There is no tenderness. There is no rebound, no guarding, no Marin's sign and no tenderness at McBurney's point. Rovsig negative MUSC/SKEL: Normal range of motion. There is 3+ bilateral pitting of the lower extremities edema. No tenderness or deformity. LYMPH: No cervical adenopathy. NEURO: She is alert and oriented to person, place, and time. She has normal strength. No cranial nerve deficit or sensory deficit. Coordination and gait normal. GCS eye subscore is 4. GCS verbal subscore is 5. GCS motor subscore is 6. Cerebellar tests wnl. SKIN: Skin is warm and dry. She is not diaphoretic. PSYCH: She has a normal mood and affect. Behavior is normal. Judgment and thought content normal. Course Course 1853: The patient was evaluated in room A3. A complete history and physical exam was performed Cardiac monitoring: An order was placed for continuous cardiac monitoring. The monitor shows a rate of 40 with sinus rhythm Patient was found to be hypoxic on room air in the low 80s. Patient was placed on nasal cannula which did improve her oxygen saturation mildly. On physical exam the patient does appear to be fluid overloaded. Patient is not in respiratory distress that is severe. We will hold off on BiPAP. We will start the patient on high flow nasal cannula/Vapotherm. 1950: Made aware by the monitor Ken the patient is persistently bradycardic and randomly appears to drop QRS. My interpretation there does not appear to be any AV block. Repeat EKG showed sinus bradycardia with rate of 39. TN and QTc intervals within normal limits. QRS 128. Right bundle branch block present. No ST elevation or ST depression. Electrolytes are still pending. Chest x-ray does show that the patient appears to be fluid overloaded. The patient's blood pressure has improved status post 1 sublingual nitroglycerin. Patient is tolerating the Vapotherm well. 2054: Patient remains bradycardic and her blood pressure remains improved on the Vapotherm and after 1 sublingual nitro. ABG confirmed the hypoxia. Troponin 0.02 proBNP 1482. Patient negative for COVID-19 influenza and RSV. Patient will be given Lasix 40 mg IV push [facility]. Administered Medications Discontinued Medications Nitroglycerin (Nitroglycerin Sl 0.4 Mg/Tab Tab) 0.4 mg SL NOW STA Stop: 01/21/21 19:03 Last Admin: 01/21/21 19:07 Dose: 0.4 mg Documented by: [id number] Nitroglycerin (Nitroglycerin Sl 0.4 Mg/Tab Tab) Confirm Administered Dose 0.4 mg .ROUTE .STK-MED ONE Stop: 01/21/21 19:06 Last Admin: 01/21/21 19:07 Dose: Not Given Documented by: [id number] Nitroglycerin (Nitroglycerin Sl 0.4 Mg/Tab Tab) Confirm Administered Dose 0.4 mg .ROUTE .STK-MED ONE Stop: 01/21/21 19:06 Last Admin: 01/21/21 19:07 Dose: Not Given Documented by: [id number] Medical Decision Making Laboratory Data Result diagrams: 01/21/21 19:32 01/21/21 19:32 Lab Results 01/21/21 01/21/21 01/21/21 Range/Units 19:32 19:32 19:32 WBC 9.32 (4.8-10.8) K/uL RBC 4.77 (4.2-5.4) M/uL Hgb 13.0 (12.0-16.0) g/dL Hct 39.2 (37-47) % MCV 82.2 (80-100) fL MCH 27.3 (25-34) pg MCHC 33.2 (32-36) g/dL RDW Std Deviation 49.1 H (36.4-46.3) fL RDW Coeff of Juanita 16.4 H (11.5-14.5) % Plt Count 218 (130-400) K/uL MPV 11.5 H (7.4-10.4) fL Immature Gran % (Auto) 0.3 % Neut % (Auto) 82.3 % Lymph % (Auto) 9.0 % Isabella % (Auto) 7.9 % Eos % (Auto) 0.4 % Baso % (Auto) 0.1 % Neut # (Auto) 7.66 H (1.4-6.5) K/uL Lymph # (Auto) 0.84 L (1.2-3.4) K/uL Isabella # (Auto) 0.74 H (0.11-0.59) K/uL Eos # (Auto) 0.04 (0-0.5) K/uL Baso # (Auto) 0.01 (0-0.2) K/uL Immature Gran # (Auto) 0.03 H (0.00-0.02) K/uL PT 11.4 (9.0-12.0) Seconds INR 1.1 (0.9-1.1) APTT 28.5 (21.0-31.0) Seconds PTT Ratio 1.1 ABG pH (7.35-7.45) ABG pCO2 (35-46) mmHg ABG pO2 (80-95) mmHg ABG HCO3 (19-24) mmol/L ABG O2 Saturation (90-95) % ABG Base Excess (-9-1.8) mEq/L Arian Test (Pos) Barometric Pressure mm/Hg Oxygen Given Sodium 136 (136-145) mmol/L Potassium 4.3 (3.5-5.1) mmol/L Chloride 100 (98-107) mmol/L Carbon Dioxide 31 (21-32) mmol/L Anion Gap 5.0 (3-11) BUN 33 H (7-18) mg/dl Creatinine 1.04 (0.6-1.2) mg/dl Est Cr Clr Drug Dosing Not Reportable Est GFR ( Amer) 57.9 Est GFR (Non-Af Amer) 50.0 BUN/Creatinine Ratio 31.9 H (10-20) Glucose 112 H (70-99) mg/dl Calcium 8.9 (8.5-10.1) mg/dl Magnesium 2.0 (1.8-2.4) mg/dl Total Bilirubin 0.4 (0.2-1) mg/dl Direct Bilirubin < 0.1 (0-0.2) mg/dl AST 39 H (15-37) U/L ALT 87 H (12-78) U/L Alkaline Phosphatase 68 (45-117) U/L Troponin I 0.020 (0-0.045) ng/ml NT-Pro-B Natriuret Pep 1482 (0-1800) pg/ml Total Protein 6.5 (6.4-8.2) gm/dl Albumin 3.2 L (3.4-5.0) gm/dl Lipase (73-393) U/L COVID-19 Eval Order SARS-CoV-2 (PCR) (Negative) Influenza Type A (PCR) (Neg) Influenza Type B (PCR) (Neg) RSV (RT-PCR) (Neg) 01/21/21 01/21/21 01/21/21 Range/Units 19:32 19:38 19:45 WBC (4.8-10.8) K/uL RBC (4.2-5.4) M/uL Hgb (12.0-16.0) g/dL Hct (37-47) % MCV (80-100) fL MCH (25-34) pg MCHC (32-36) g/dL RDW Std Deviation (36.4-46.3) fL RDW Coeff of Juanita (11.5-14.5) % Plt Count (130-400) K/uL MPV (7.4-10.4) fL Immature Gran % (Auto) % Neut % (Auto) % Lymph % (Auto) % Isabella % (Auto) % Eos % (Auto) % Baso % (Auto) % Neut # (Auto) (1.4-6.5) K/uL Lymph # (Auto) (1.2-3.4) K/uL Isabella # (Auto) (0.11-0.59) K/uL Eos # (Auto) (0-0.5) K/uL Baso # (Auto) (0-0.2) K/uL Immature Gran # (Auto) (0.00-0.02) K/uL PT (9.0-12.0) Seconds INR (0.9-1.1) APTT (21.0-31.0) Seconds PTT Ratio ABG pH 7.40 (7.35-7.45) ABG pCO2 53 H (35-46) mmHg ABG pO2 76 L (80-95) mmHg ABG HCO3 32 H (19-24) mmol/L ABG O2 Saturation 95.4 H (90-95) % ABG Base Excess 5.7 H (-9-1.8) mEq/L Arian Test Pos (Pos) Barometric Pressure 729.6 mm/Hg Oxygen Given 40% Sodium (136-145) mmol/L Potassium (3.5-5.1) mmol/L Chloride (98-107) mmol/L Carbon Dioxide (21-32) mmol/L Anion Gap (3-11) BUN (7-18) mg/dl Creatinine (0.6-1.2) mg/dl Est Cr Clr Drug Dosing Est GFR ( Amer) Est GFR (Non-Af Amer) BUN/Creatinine Ratio (10-20) Glucose (70-99) mg/dl Calcium (8.5-10.1) mg/dl Magnesium (1.8-2.4) mg/dl Total Bilirubin (0.2-1) mg/dl Direct Bilirubin (0-0.2) mg/dl AST (15-37) U/L ALT (12-78) U/L Alkaline Phosphatase (45-117) U/L Troponin I (0-0.045) ng/ml NT-Pro-B Natriuret Pep (0-1800) pg/ml Total Protein (6.4-8.2) gm/dl Albumin (3.4-5.0) gm/dl Lipase 92 (73-393) U/L COVID-19 Eval Order CovFluRsv at [facility] SARS-CoV-2 (PCR) (Negative) Influenza Type A (PCR) (Neg) Influenza Type B (PCR) (Neg) RSV (RT-PCR) (Neg) 01/21/21 Range/Units 19:45 WBC (4.8-10.8) K/uL RBC (4.2-5.4) M/uL Hgb (12.0-16.0) g/dL Hct (37-47) % MCV (80-100) fL MCH (25-34) pg MCHC (32-36) g/dL RDW Std Deviation (36.4-46.3) fL RDW Coeff of Juanita (11.5-14.5) % Plt Count (130-400) K/uL MPV (7.4-10.4) fL Immature Gran % (Auto) % Neut % (Auto) % Lymph % (Auto) % Isabella % (Auto) % Eos % (Auto) % Baso % (Auto) % Neut # (Auto) (1.4-6.5) K/uL Lymph # (Auto) (1.2-3.4) K/uL Isabella # (Auto) (0.11-0.59) K/uL Eos # (Auto) (0-0.5) K/uL Baso # (Auto) (0-0.2) K/uL Immature Gran # (Auto) (0.00-0.02) K/uL PT (9.0-12.0) Seconds INR (0.9-1.1) APTT (21.0-31.0) Seconds PTT Ratio ABG pH (7.35-7.45) ABG pCO2 (35-46) mmHg ABG pO2 (80-95) mmHg ABG HCO3 (19-24) mmol/L ABG O2 Saturation (90-95) % ABG Base Excess (-9-1.8) mEq/L Arian Test (Pos) Barometric Pressure mm/Hg Oxygen Given Sodium (136-145) mmol/L Potassium (3.5-5.1) mmol/L Chloride (98-107) mmol/L Carbon Dioxide (21-32) mmol/L Anion Gap (3-11) BUN (7-18) mg/dl Creatinine (0.6-1.2) mg/dl Est Cr Clr Drug Dosing Est GFR ( Amer) Est GFR (Non-Af Amer) BUN/Creatinine Ratio (10-20) Glucose (70-99) mg/dl Calcium (8.5-10.1) mg/dl Magnesium (1.8-2.4) mg/dl Total Bilirubin (0.2-1) mg/dl Direct Bilirubin (0-0.2) mg/dl AST (15-37) U/L ALT (12-78) U/L Alkaline Phosphatase (45-117) U/L Troponin I (0-0.045) ng/ml NT-Pro-B Natriuret Pep (0-1800) pg/ml Total Protein (6.4-8.2) gm/dl Albumin (3.4-5.0) gm/dl Lipase (73-393) U/L COVID-19 Eval Order SARS-CoV-2 (PCR) NEGATIVE (Negative) Influenza Type A (PCR) Negative (Neg) Influenza Type B (PCR) Negative (Neg) RSV (RT-PCR) Negative (Neg) Imaging Data Radiologist's Impression: Chest X-Ray 01/21/21 19:03 XR chest 1V portable CLINICAL HISTORY: sob chf COMPARISON STUDY: Chest radiograph November 25, 2017. FINDINGS: There is no pneumothorax. Small bilateral pleural effusions are noted with bibasilar opacities. Interstitial thickening represents pulmonary edema. Cardiomediastinal silhouette is stable. IMPRESSION: Interstitial pulmonary edema with small bilateral pleural effusions. ACT 112: Negative or not required by law. Electronically signed by: Wolf Elizalde M.D. 01/21/2021 7:22 PM ECG Data Interpretation: EKG #1 at 1904: Sinus bradycardia with rate of 44. TN and QTc intervals within normal limits. QRS 122. Right bundle branch block present. No ST elevation or ST depression. EKG #2 at 194: Sinus bradycardia with rate 39. TN and QTc intervals within normal limits. QRS 128. Right bundle branch block present. No ST elevation or ST depression. Head Trauma GCS Score: 15 MDM Narrative 1853: The patient was evaluated in room A3. A complete history and physical exam was performed Cardiac monitoring: An order was placed for continuous cardiac monitoring. The monitor shows a rate of 40 with sinus rhythm Patient was found to be hypoxic on room air in the low 80s. Patient was placed on nasal cannula which did improve her oxygen saturation mildly. On physical exam the patient does appear to be fluid overloaded. Patient is not in respiratory distress that is severe. We will hold off on BiPAP. We will start the patient on high flow nasal cannula/Vapotherm. 1950: Made aware by the monitor Ken the patient is persistently bradycardic and randomly appears to drop QRS. My interpretation there does not appear to be any AV block. Repeat EKG showed sinus bradycardia with rate of 39. TN and QTc intervals within normal limits. QRS 128. Right bundle branch block present. No ST elevation or ST depression. Electrolytes are still pending. Chest x-ray does show that the patient appears to be fluid overloaded. The patient's blood pressure has improved status post 1 sublingual nitroglycerin. Patient is tolerating the Vapotherm well. 2054: Patient remains bradycardic and her blood pressure remains improved on the Vapotherm and after 1 sublingual nitro. ABG confirmed the hypoxia. Troponin 0.02 proBNP 1482. Patient negative for COVID-19 influenza and RSV. Patient will be given Lasix 40 mg IV push and [facility] notified. Impression & Plan Hypoxia, Fluid overload Critical Care Time Critical Care Time: Yes Total Critical Care Time: 82 I have personally spent greater than 82 minutes of critical care time in the direct management of this patient. This includes bedside care, interpretation of diagnostic studies, and testing, discussion with consultants, patient, and family members, and other required patient management activities. This 82 minutes is in excess of all separately billable procedures. Discharge Plan Visit Data Chief Complaint: Illness Stated Complaint: SOB, WEAKNESS, ABNORMAL INCONTINENCE ED Provider: Stan Enrique Discharge Problem: Hypoxia, Fluid overload Patient Disposition: Admitted As Inpatient Forms Stand Alone Forms: My [facility] Prescriptions Prescriptions: No Action (DME) OneTouch Ultra Blue Test Strip strip See Dose Instructions .ROUTE .MEDSUPPLY Qty: 400 RF: 3 lisinopril 40 mg tablet 40 mg PO DAILY Qty: 90 RF: 3 clopidogrel 75 mg tablet 75 mg PO DAILY Qty: 30 RF: 11 atorvastatin 40 mg tablet 40 mg PO DAILY Qty: 90 RF: 3 metoprolol succinate 50 mg tablet extended release 24 hr 50 mg PO DAILY Qty: 90 RF: 3 Novolog Flexpen U-100 Insulin 100 unit/mL (3 mL) insulin pen 50 unit SQ DAILY 90 Days Qty: 45 RF: 3 amlodipine 10 mg tablet 10 mg PO DAILY Qty: 90 RF: 3 venlafaxine 75 mg capsule,extended release 24hr 75 mg PO DAILY RF: 0 (DME) BD AutoShield Duo Pen Needle 30 gauge x 3/16" needle See Dose Instructions .ROUTE .MEDSUPPLY Qty: 100 RF: 0 (DME) lancets [OneTouch Delica Lancets] 30 gauge misc See Dose Instructions .ROUTE .MEDSUPPLY Qty: 25 RF: 0 cholecalciferol (vitamin D3) 2,000 unit tablet 2,000 units PO DAILY RF: 0 risperidone 3 mg tablet 3 mg PO DAILY RF: 0 hydrochlorothiazide 25 mg tablet 25 mg PO DAILY RF: 0 albuterol sulfate [Ventolin HFA] 90 mcg/actuation HFA aerosol inhaler 1 puffs INH Q6H PRN (Reason: SOB) RF: 0 venlafaxine 150 mg capsule,extended release 24hr 150 mg PO DAILY RF: 0 mupirocin 2 % ointment 1 applic topical BID Qty: 15 RF: 0 metformin 500 mg tablet 500 mg PO BID RF: 0 Lantus Solostar U-100 Insulin 100 unit/mL (3 mL) insulin pen 16 unit SQ HS RF: 0 Referrals Referrals: Tab Bellamy MD [Primary Care Provider] - Discharge Problem: Fluid overload Qualifiers: Hypervolemia type: unspecified Qualified Code(s): E87.70 - Fluid overload, unspecified
[2021-01-21] MEDS ORDERED: DEXTROSE 50% 50 ML SYRINGE IV PRN (21:45)
[2021-01-21] MEDS ORDERED: GLUCAGON FOR INJ 1 MG VIAL SQ PRN (21:45)
[2021-01-21] MEDS ORDERED: ALBUTEROL HFA 8 GM INHALER INH PRN (21:45)
[2021-01-21] MEDS ORDERED: GLUCOSE 40% GEL 15 GM TUBE PO PRN (21:45)
[2021-01-21] MEDS ORDERED: CARBOHYDRATES FOR HYPOGLYCEMIA PO PRN (21:45)
[2021-01-21] MEDS ORDERED: GLUCOSE 10 TABS/TUBE PO PRN (21:45)
--- NOTE | 2021-01-21 21:50 | History & Physical Report ---
Date of Service January 21, 2021 Assessment & Plan (1) Acute respiratory failure with hypoxia: 80 yo F PMHx bilateral NIDA, HTN, HLD, DM2, depression admitted for acute hypoxic respiratory failure. Acute hypoxic respiratory failure: On presentation with O2 saturation in low 80s on room air. Improved to mid-90s on HFNC, and now on 2LNC. XR chest with interstitial pulmonary edema and bilateral small pleural effusions. BNP 1492, however possibly falsely low due to obesity. Lasix 40mg IV x1 given in ER. Primary cause suspected to be fluid overload. Low sodium diet with 1800mL fluid restriction. Echocardiogram in the morning to rule out CHF. Last Echo in 2017 showed normal EF. No findings on exam or lab evaluation that would suggest infectious cause. No antibiotics at this time. Transaminitis: Mild transaminitis this admission. Repeat CMP tomorrow AM. LFTs were normal as recently as two weeks ago. Consider Liver US if no improvement in LFTs with improvement in vascular congestion. Asymptomatic bradycardia: In ER with HR 38-45; no palpitations, chest pain. Hold metoprolol. Did receive one time dose of nitro for HTN. Telemetry for cardiac monitoring. May require lower dose of metoprolol for home. HTN: History of, on amlodipine, HCTZ, lisinopril, and metoprolol. Initially with BP 230 systolic, down to 185 with nitro. Hold metoprolol due to bradycardia. Monitor BP per floor protocol; no additional antihypertensives at this time. CKD stage 3: History of, with baseline creatinine 1.0 (GFR 50). No RAIN this admission. NIDA: CTA neck from September 2018 showed stable 75% stenosis of the origin of the right ICA and 50% stenosis of the left ICA. Follows with Dr. Capellan, and [facility] regarding if any intervention would be appropriate. No neurologic symptoms this admission. Holding metoprolol as above due to bradycardia. Continue statin. Heart Healthy diet. DM2: History of, insulin dependent. Lantus 16u daily with SSI, titrate as appropriate based on need. DM2 diet. HLD: Continue statin. Code Status: DNR/DNI FEN: heart healthy, low sodium, DM2 diet DVT ppx: Lovenox 40mg daily Dispo: Telemetry for continuous cardiac monitoring (2) Depression: (3) Carotid artery stenosis: (4) Chronic kidney disease, stage 3 (moderate): (5) Dyslipidemia: (6) Controlled type 2 diabetes mellitus with kidney complication, with long-term current use of insulin: (7) Hypertension: History of Present Illness Chief Complaint: dyspnea Primary Care Provider: Tab Bellamy MD 80 yo F PMHx bilateral NIDA, HTN, HLD, DM2, depression presented to the ER with shortness of breath. She admits that for the last 2 weeks has felt overall unwell, one week ago began feeling somewhat short of breath, and today after letting her daughter know she was struggling to breathe they came to the ER. Denies recent illness, fevers or chills, abdominal pain, nausea or vomiting, headache, chest pain. In the ER patient was hypoxic to low 80s on room air with improvement on HFNC; she was also hypertensive with systolic 230. Labwork showed no leukocytosis, mild transaminitis, BNP 1492, COVID 19 negative. XR showed pulmonary edema and small bialteral pleural effusions. She was given Lasix 40mg IV x1, as well as nitro x1 given systolic BP. Of note, patient admits to eating a lot of salt-containing foods. She eats Augustine Eduard breakfast bowls and protein bowls from the frozen foods section somewhat frequently, and her daughter states that she eats a lot of potato chips recently. She does not have a history of heart failure. Last Echo was done in 2016, normal LVEF at that time. Allergies Allergy/AdvReac Type Severity Reaction Status Date / Time bacitracin Allergy Unknown UNKNOWN Verified 01/21/21 20:39 polymyxin B Allergy Unknown UNKNOWN Verified 01/21/21 20:39 neomycin Allergy Verified 01/21/21 20:39 [From Neosporin ([id number])] adhesive AdvReac Mild RED AND Verified 01/21/21 20:39 ITCHY Bandaid Allergy Mild red and Uncoded 01/21/21 20:39 itchy Home Medications Medication Instructions Recorded Confirmed Type lancets 30 gauge #25 ea 05/04/19 12/04/20 History pen needle,diabetic dual safty 30 #100 ea 05/04/19 12/04/20 History gauge x 3/16" venlafaxine 75 mg capsule,extended 75 mg PO DAILY cap 05/04/19 01/21/21 History release 24 hr OneTouch Ultra Blue Test Strip #400 ea NS 06/11/19 12/04/20 Rx cholecalciferol (vitamin D3) 50 2,000 units PO DAILY tab 06/21/19 01/21/21 History mcg (2,000 unit) tablet risperidone 3 mg tablet 3 mg PO DAILY tab 06/21/19 01/21/21 History venlafaxine 150 mg 150 mg PO DAILY 07/27/19 01/21/21 History capsule,extended release 24 hr albuterol sulfate 90 mcg/actuation 1 puffs INH Q6H PRN 09/17/19 01/21/21 History aerosol inhaler hydrochlorothiazide 25 mg tablet 25 mg PO DAILY 09/17/19 01/21/21 History lisinopril 40 mg tablet 40 mg PO DAILY #90 tab 12/24/19 01/21/21 Rx clopidogrel 75 mg tablet 75 mg PO DAILY #30 tab 06/27/20 01/21/21 Rx atorvastatin 40 mg tablet 40 mg PO DAILY #90 tab 10/18/20 01/21/21 Rx mupirocin 1 applic TOPICAL BID #15 g 11/30/20 01/21/21 Rx metoprolol succinate 50 mg 50 mg PO DAILY #90 tab 12/27/20 01/21/21 Rx tablet,extended release 24 hr insulin aspart U-100 100 unit/mL 50 unit SQ DAILY 90 Days #45 ml 01/11/21 01/21/21 Rx (3 mL) subcutaneous pen amlodipine 10 mg tablet 10 mg PO DAILY #90 tab 01/12/21 01/21/21 Rx insulin glargine [Lantus Solostar 16 unit SQ HS 01/21/21 01/21/21 History U-100 Insulin] metformin 500 mg PO BID 01/21/21 01/21/21 History 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) Vitamin D deficiency Surgical History History of cataract surgery History of dilatation and curettage History of ear surgery approx 1984 Hx of tonsillectomy Family History Family/Other Family history of coronary arteriosclerosis Depression Mother Cardiovascular disease Diabetes Other Family history of bleeding disorder No family history of adverse response to anesthesia Social History Smoking Status: Former smoker Tobacco Type: Cigarettes packs per day: 1; Years Smoked: 20; Hx Alcohol Use: No Hx Substance Use: No Preferred Language: Malian Communication Ability: Effective Coil Builder Required: No Beliefs That Will Affect Care: None marital status: / Current Living Situation: Family current occupational status: retired Other Information That Helps Us Care for You: No Feels Safe at Home: Yes Safety Concerns: Feels Safe At This Time Assistive Devices: Denture - Upper, Denture - Lower, Glasses and Hearing Aid - Bilateral Review of Systems Review of Systems: All systems reviewed & are unremarkable except as noted in HPI & below Constitutional: no fever, no chills and no malaise Respiratory: + dyspnea on exertion (improved currently as compared to arrival); no cough Cardiovascular: no chest pain, no palpitations and no edema Gastrointestinal: no abdominal pain, no constipation and no diarrhea/loose stools Genitourinary: no dysuria and no hematuria Physical Exam Constitutional: WD/WN, vitals as above Eyes: PERRL, conjunctivae normal, anicteric sclerae ENMT: external ear and nose normal, oropharynx normal Neck: normal visual inspection Respiratory: normal respiratory effort and + cough; no respiratory distress and no retractions Auscultation: + crackles (bibasilar); no wheezes Cardiovascular: Rate/Rhythm: regular rate and regular rhythm Heart Sounds: no murmur Extremities: + edema (bilateral 2+ pitting edema) Gastrointestinal (Abdomen): normal bowel sounds, soft, nontender, no hepatosplenomegaly Musculoskeletal: no cyanosis or clubbing, extremities motor strength 5/5 Skin: no rashes, warm and dry Neurologic: AAOx3, normal speech. No tremor. Psychiatric: A+Ox3, euthymic affect Results & Data Results & Data ([facility]) Vital Signs (Past 12 Hours) Vital Signs Temp Pulse Pulse Resp BP Pulse Ox 01/21/21 21:04 38 L 20 96 01/21/21 19:12 44 L 22 95 01/21/21 18:46 36.6 C 43 L 18 223/89 H 88 L Laboratory Results Lab Results 01/21/21 01/21/21 01/21/21 Range/Units 19:32 19:32 19:32 WBC 9.32 (4.8-10.8) K/uL RBC 4.77 (4.2-5.4) M/uL Hgb 13.0 (12.0-16.0) g/dL Hct 39.2 (37-47) % MCV 82.2 (80-100) fL MCH 27.3 (25-34) pg MCHC 33.2 (32-36) g/dL RDW Std Deviation 49.1 H (36.4-46.3) fL RDW Coeff of Juanita 16.4 H (11.5-14.5) % Plt Count 218 (130-400) K/uL MPV 11.5 H (7.4-10.4) fL Immature Gran % (Auto) 0.3 % Neut % (Auto) 82.3 % Lymph % (Auto) 9.0 % [place] % (Auto) 7.9 % Eos % (Auto) 0.4 % Baso % (Auto) 0.1 % Neut # (Auto) 7.66 H (1.4-6.5) K/uL Lymph # (Auto) 0.84 L (1.2-3.4) K/uL [place] # (Auto) 0.74 H (0.11-0.59) K/uL Eos # (Auto) 0.04 (0-0.5) K/uL Baso # (Auto) 0.01 (0-0.2) K/uL Immature Gran # (Auto) 0.03 H (0.00-0.02) K/uL PT 11.4 (9.0-12.0) Seconds INR 1.1 (0.9-1.1) APTT 28.5 (21.0-31.0) Seconds PTT Ratio 1.1 ABG pH (7.35-7.45) ABG pCO2 (35-46) mmHg ABG pO2 (80-95) mmHg ABG HCO3 (19-24) mmol/L ABG O2 Saturation (90-95) % ABG Base Excess (-9-1.8) mEq/L Arian Test (Pos) Barometric Pressure mm/Hg Oxygen Given Sodium 136 (136-145) mmol/L Potassium 4.3 (3.5-5.1) mmol/L Chloride 100 (98-107) mmol/L Carbon Dioxide 31 (21-32) mmol/L Anion Gap 5.0 (3-11) BUN 33 H (7-18) mg/dl Creatinine 1.04 (0.6-1.2) mg/dl Est Cr Clr Drug Dosing Not Reportable Est GFR ( Amer) 57.9 Est GFR (Non-Af Amer) 50.0 BUN/Creatinine Ratio 31.9 H (10-20) Glucose 112 H (70-99) mg/dl Calcium 8.9 (8.5-10.1) mg/dl Magnesium 2.0 (1.8-2.4) mg/dl Total Bilirubin 0.4 (0.2-1) mg/dl Direct Bilirubin < 0.1 (0-0.2) mg/dl AST 39 H (15-37) U/L ALT 87 H (12-78) U/L Alkaline Phosphatase 68 (45-117) U/L Troponin I 0.020 (0-0.045) ng/ml NT-Pro-B Natriuret Pep 1482 (0-1800) pg/ml Total Protein 6.5 (6.4-8.2) gm/dl Albumin 3.2 L (3.4-5.0) gm/dl Lipase (73-393) U/L COVID-19 Eval Order SARS-CoV-2 (PCR) (Negative) Influenza Type A (PCR) (Neg) Influenza Type B (PCR) (Neg) RSV (RT-PCR) (Neg) 01/21/21 01/21/21 01/21/21 Range/Units 19:32 19:38 19:45 WBC (4.8-10.8) K/uL RBC (4.2-5.4) M/uL Hgb (12.0-16.0) g/dL Hct (37-47) % MCV (80-100) fL MCH (25-34) pg MCHC (32-36) g/dL RDW Std Deviation (36.4-46.3) fL RDW Coeff of Juanita (11.5-14.5) % Plt Count (130-400) K/uL MPV (7.4-10.4) fL Immature Gran % (Auto) % Neut % (Auto) % Lymph % (Auto) % [place] % (Auto) % Eos % (Auto) % Baso % (Auto) % Neut # (Auto) (1.4-6.5) K/uL Lymph # (Auto) (1.2-3.4) K/uL [place] # (Auto) (0.11-0.59) K/uL Eos # (Auto) (0-0.5) K/uL Baso # (Auto) (0-0.2) K/uL Immature Gran # (Auto) (0.00-0.02) K/uL PT (9.0-12.0) Seconds INR (0.9-1.1) APTT (21.0-31.0) Seconds PTT Ratio ABG pH 7.40 (7.35-7.45) ABG pCO2 53 H (35-46) mmHg ABG pO2 76 L (80-95) mmHg ABG HCO3 32 H (19-24) mmol/L ABG O2 Saturation 95.4 H (90-95) % ABG Base Excess 5.7 H (-9-1.8) mEq/L Arian Test Pos (Pos) Barometric Pressure 729.6 mm/Hg Oxygen Given 40% Sodium (136-145) mmol/L Potassium (3.5-5.1) mmol/L Chloride (98-107) mmol/L Carbon Dioxide (21-32) mmol/L Anion Gap (3-11) BUN (7-18) mg/dl Creatinine (0.6-1.2) mg/dl Est Cr Clr Drug Dosing Est GFR ( Amer) Est GFR (Non-Af Amer) BUN/Creatinine Ratio (10-20) Glucose (70-99) mg/dl Calcium (8.5-10.1) mg/dl Magnesium (1.8-2.4) mg/dl Total Bilirubin (0.2-1) mg/dl Direct Bilirubin (0-0.2) mg/dl AST (15-37) U/L ALT (12-78) U/L Alkaline Phosphatase (45-117) U/L Troponin I (0-0.045) ng/ml NT-Pro-B Natriuret Pep (0-1800) pg/ml Total Protein (6.4-8.2) gm/dl Albumin (3.4-5.0) gm/dl Lipase 92 (73-393) U/L COVID-19 Eval Order [facility]FluRsv at [facility] SARS-CoV-2 (PCR) (Negative) Influenza Type A (PCR) (Neg) Influenza Type B (PCR) (Neg) RSV (RT-PCR) (Neg) 01/21/21 Range/Units 19:45 WBC (4.8-10.8) K/uL RBC (4.2-5.4) M/uL Hgb (12.0-16.0) g/dL Hct (37-47) % MCV (80-100) fL MCH (25-34) pg MCHC (32-36) g/dL RDW Std Deviation (36.4-46.3) fL RDW Coeff of Juanita (11.5-14.5) % Plt Count (130-400) K/uL MPV (7.4-10.4) fL Immature Gran % (Auto) % Neut % (Auto) % Lymph % (Auto) % [place] % (Auto) % Eos % (Auto) % Baso % (Auto) % Neut # (Auto) (1.4-6.5) K/uL Lymph # (Auto) (1.2-3.4) K/uL [place] # (Auto) (0.11-0.59) K/uL Eos # (Auto) (0-0.5) K/uL Baso # (Auto) (0-0.2) K/uL Immature Gran # (Auto) (0.00-0.02) K/uL PT (9.0-12.0) Seconds INR (0.9-1.1) APTT (21.0-31.0) Seconds PTT Ratio ABG pH (7.35-7.45) ABG pCO2 (35-46) mmHg ABG pO2 (80-95) mmHg ABG HCO3 (19-24) mmol/L ABG O2 Saturation (90-95) % ABG Base Excess (-9-1.8) mEq/L Arian Test (Pos) Barometric Pressure mm/Hg Oxygen Given Sodium (136-145) mmol/L Potassium (3.5-5.1) mmol/L Chloride (98-107) mmol/L Carbon Dioxide (21-32) mmol/L Anion Gap (3-11) BUN (7-18) mg/dl Creatinine (0.6-1.2) mg/dl Est Cr Clr Drug Dosing Est GFR ( Amer) Est GFR (Non-Af Amer) BUN/Creatinine Ratio (10-20) Glucose (70-99) mg/dl Calcium (8.5-10.1) mg/dl Magnesium (1.8-2.4) mg/dl Total Bilirubin (0.2-1) mg/dl Direct Bilirubin (0-0.2) mg/dl AST (15-37) U/L ALT (12-78) U/L Alkaline Phosphatase (45-117) U/L Troponin I (0-0.045) ng/ml NT-Pro-B Natriuret Pep (0-1800) pg/ml Total Protein (6.4-8.2) gm/dl Albumin (3.4-5.0) gm/dl Lipase (73-393) U/L COVID-19 Eval Order SARS-CoV-2 (PCR) NEGATIVE (Negative) Influenza Type A (PCR) Negative (Neg) Influenza Type B (PCR) Negative (Neg) RSV (RT-PCR) Negative (Neg) Diagnostic Findings XR chest 1V portable CLINICAL HISTORY: sob chf COMPARISON STUDY: Chest radiograph November 25, 2017. FINDINGS: There is no pneumothorax. Small bilateral pleural effusions are noted with bibasilar opacities. Interstitial thickening represents pulmonary edema. Cardiomediastinal silhouette is stable. IMPRESSION: Interstitial pulmonary edema with small bilateral pleural effusions. ACT 112: Negative or not required by law. Electronically signed by: Wolf Elizalde M.D. 01/21/2021 7:22 PM Dictated: 01/21/211920Transcribed: 01/21/211920 Code Status & VTE Plan VTE Prophylaxis Plan VTE Prophylaxis will be ordered: Yes Supervising Physician Co-Signing Physician Notes Patient seen and examined, chart reviewed, case discussed with Dr. Pearson and I agree with her assessment and plan as documented above. Briefly, patient is an 80yo female presenting with SOB, acute hypoxic respiratory failure on arrival requiring supplemental O2 via HFNC. On exam she is bradycardic, marked systolic hypertension +Edema of bilateral LE - 2+ +Crackles in bilateral bases No chest wall pain No focal deficits Remainder of exam unremarkable Labs and images reviewed. EKG with sinus bradycardia, ?unconducted P-waves signifying Mobitz 2 Assessment/Plan: Bradycardia, CHF. ?if patient's new bradycardia has led to her CHF symptoms. Her EKG is concerning for Mobitz II. May need pacemaker pl acement -Lasix given with good response -Holding BB -Echo in AM -Cardiology consultation -Remainder of plan as above Resident Activity Tracking Resident Involvement: Resident Care Provided Care Provided: Adult [facility] (1) Carotid artery stenosis Laterality: bilateral Qualified Code(s): I65.23 - Occlusion and stenosis of bilateral carotid arteries (2) Chronic kidney disease, stage 3 (moderate) Chronic kidney disease stage 3 subtype: unspecified whether 3a or 3b Qualified Code(s): N18.30 - Chronic kidney disease, stage 3 unspecified (3) Depression Active/Remission status: remission status unspecified Depression Type: major depressive disorder Major depression recurrence: unspecified whether recurrent Qualified Code(s): F32.9 - Major depressive disorder, single episode, unspecified (4) Controlled type 2 diabetes mellitus with kidney complication, with long-term current use of insulin Chronic kidney disease stage: unspecified stage Diabetes mellitus complication detail: with chronic kidney disease Qualified Code(s): E11.22 - Type 2 diabetes mellitus with diabetic chronic kidney disease; 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
[2021-01-22] MEDS ORDERED: ACETAMINOPHEN 325 MG TAB PO PRN (00:39)
[2021-01-22] MEDS ORDERED: POLYETHYLENE (MIRALAX) 17 GM PACK PO PRN (00:39)
[2021-01-22] MEDS ORDERED: ONDANSETRON INJ 2 MG/ML 2 ML VIAL IV PRN (00:39)
[2021-01-22] MEDS: amLODIPine BESYLATE 5 MG TAB PO SCH (01:37)
--- NOTE | 2021-01-22 03:38 | Billing Data ---
Date of Service January 21, 2021 Coding Level of Care Code 15475 Initial Inpt Care Lvl 3
[2021-01-22 06:30] LABS: Hemoglobin 12.9 g/dL (12.0-16.0); Mean Corpuscular Hemoglobin 27.8 pg (25-34); Mean Corpuscular Hgb Conc 33.9 g/dL (32-36); Mean Corpuscular Volume 81.9 fL (80-100); Mean Platelet Volume 11.5 fL (7.4-10.4); Platelet Count 208 K/uL (130-400); RDW Coefficient of Variation 16.6 % (11.5-14.5); RDW Standard Deviation 50.3 fL (36.4-46.3); Red Blood Count 4.64 M/uL (4.2-5.4); White Blood Count 6.99 K/uL (4.8-10.8)
[2021-01-22 06:48] LABS: Estimated Average Glucose 169 mg/dl; Hemoglobin A1C 7.5 % (4.5-5.6)
[2021-01-22 06:52] LABS: Albumin Level 3.1 gm/dl (3.4-5.0); BUN Creatinine Ratio 28.2 (10-20); Calcium 9.1 mg/dl (8.5-10.1); Creatinine Clr Calc Pharmacy 46.3 ml/min; Est GFR (African American) 63.8; Est GFR (Non-African American) 55.1; Potassium 3.7 mmol/L (3.5-5.1)
[2021-01-22 06:55] LABS: Bilirubin,Total 0.6 mg/dl (0.2-1); Globulin 3.1 gm/dl (2.5-4.0); Total Protein 6.2 gm/dl (6.4-8.2)
[2021-01-22] MEDS ORDERED: NON-FORMULARY MEDICATION (Mupirocin 2 % ointment) TOP SCH (09:00)
--- NOTE | 2021-01-22 09:28 | Hospitalist Progress Note ---
Date of Service January 22, 2021 Assessment & Plan (1) Acute respiratory failure with hypoxia: 80 yo F PMHx bilateral NIDA, HTN, HLD, DM2, depression admitted for acute hypoxic respiratory failure in the setting of Acute hypoxic respiratory failure: -On presentation with O2 saturation in low 80s on room air and now on 2LNC. -likely secondary to increased volume status in setting of HF with preserved EF, and reported high amounts of sodium consumed daily -XR chest with interstitial pulmonary edema and bilateral small pleural effusions. -BNP 1492, however possibly falsely low due to obesity. -Lasix 40mg IV x1 given in ER with improvement -Low sodium diet with 1800mL fluid restriction. -Echocardiogram demonstrating EF of 60-65% with some LVH -repeat Lasix dosing with 20mg IV today, and continuation of monitoring at this time Transaminitis: -Mild transaminitis on admission. -Consider Liver US if no improvement in LFTs with improvement in vascular congestion. Asymptomatic bradycardia: -In ER with HR 38-45; no palpitations, chest pain. -Hold metoprolol. -Did receive one time dose of nitro for HTN. -Telemetry for cardiac monitoring. May require lower dose of metoprolol for home. HTN: -History of, on amlodipine, HCTZ, lisinopril, and metoprolol. -Initially with BP 230 systolic, down to 185 with nitro. -Hold metoprolol due to bradycardia. -Monitor BP per floor protocol; no additional antihypertensives at this time. CKD stage 3: -History of, with baseline creatinine 1.0 (GFR 50). -No RAIN this admission. NIDA: -CTA neck from September 2018 showed stable 75% stenosis of the origin of the right ICA and 50% stenosis of the left ICA. -Follows with Dr. Capellan, and has [facility] regarding if any intervention would be appropriate. -No neurologic symptoms this admission. -Holding metoprolol as above due to bradycardia. -Continue statin. -Heart Healthy diet. DM2: -History of, insulin dependent. -Lantus 16u daily with SSI, titrate as appropriate based on need. -DM2 diet. HLD: -Continue statin. Code Status: DNR/DNI FEN: heart healthy, low sodium, DM2 diet DVT ppx: Lovenox 40mg daily Dispo: Med/Surg (2) Depression: (3) Carotid artery stenosis: (4) Chronic kidney disease, stage 3 (moderate): (5) Dyslipidemia: (6) Controlled type 2 diabetes mellitus with kidney complication, with long-term current use of insulin: (7) Hypertension: Admission and Anticipated Discharge Date Admission Date: January 21, 2021 Supervising Physician Co-Signing Physician Notes I personally examined the patient and verified all francois points of history and exam, discussed case, and agree with decision making with Dr Stafford. Breathing feeling better, although still requiring oxygen. Expresses reasonably good understanding of sodium leading to fluid retention leading to CHF, and discusses a willingness to change her diet. Vitals noted, in general she is awake and alert pleasant no distress. HEENT normocephalic atraumatic mucous membranes moist. Lungs show diminished air entry bibasilar with faint rales, no rhonchi no wheezes no accessory muscle use good effort. Skin shows no rashes no pallor or icterus. Acute on chronic diastolic CHF/acute HFpEFher diet sounds like it would not be unreasonable to suspect she is taking in as much as 5 g of sodium a day lately, certainly this could overwhelm an 80-year-old somewhat stiff heart. Continue to diurese, educate on sodium restriction, Dr. Stafford started educating patient's daughter who helps with food preparation. Continue to diurese and follow closely. Otherwise as above. Subjective Patient states that she feels much improved this morning as compared to what originally brought her to the hospital. Was able to get up and move independently too and from the bathroom overnight without difficulty. Continues to remain on NC as she feels more comfortable while using it, attempts to wean off oxygen later in the day resulted in desaturations to the mid 80s. Desires to make diet modifications to limit her sodium consumption as she predominantly eats soups, frozen foods, and quick preparation meals. Review of Systems Review of Systems: All systems reviewed & are unremarkable except as noted in Subjective Physical Exam Constitutional: WD/WN, vitals as above Eyes: PERRL, conjunctivae normal, anicteric sclerae Respiratory: normal respiratory effort, lungs clear to auscultation Auscultation: + diminished lung sounds (B/l lower lobes) and + crackles; no rales and no rhonchi Cardiovascular: Rate/Rhythm: regular rate and regular rhythm Heart Sounds: no gallop, no murmur and no cardiac rub Vessels: normal peripheral pulses; no JVD Extremities: + edema (Trace b/l lower extremities) Gastrointestinal (Abdomen): Inspection/Auscultation: normal bowel sounds; abdomen not distended Percussion/Palpation: abdomen soft; abdomen nontender and no guarding Musculoskeletal: no cyanosis or clubbing, extremities motor strength 5/5 Skin: no rashes, warm and dry Neurologic: PERRL, EOMI, accommodation nl, no face palsy, no dysarthria CN's II-XI intact bilaterally and moves all extremities Psychiatric: Orientation: alert and oriented x 3 Results & Data Results & Data ([facility]) Vital Signs (Past 12 Hours) Vital Signs Temp Pulse Pulse Pulse Resp BP BP 01/22/21 08:23 36.5 C 64 17 155/62 H 01/22/21 03:40 36.4 C L 62 19 182/66 H 01/22/21 00:44 36.9 C 68 22 201/63 H 01/22/21 00:17 36.5 C 01/22/21 00:12 63 22 224/93 H 01/21/21 23:15 38 L 18 233/83 H 01/21/21 22:36 43 L 29 H 213/67 H 01/21/21 22:34 45 L 29 H 200/80 H 01/21/21 22:32 48 L 21 01/21/21 22:25 46 L 20 01/21/21 22:00 40 L 21 185/83 H 01/21/21 21:32 40 L 13 189/69 H 01/21/21 21:30 42 L 20 Pulse Ox 01/22/21 08:23 93 01/22/21 03:40 95 01/22/21 00:44 95 01/22/21 00:17 01/22/21 00:12 97 01/21/21 23:15 96 01/21/21 22:36 96 01/21/21 22:34 93 01/21/21 22:32 90 01/21/21 22:25 95 01/21/21 22:00 92 01/21/21 21:32 92 01/21/21 21:30 90 Laboratory Results 01/22/21 01/22/21 01/22/21 Range/Units 16:32 11:36 05:53 WBC (4.8-10.8) K/uL RBC (4.2-5.4) M/uL Hgb (12.0-16.0) g/dL Hct (37-47) % MCV (80-100) fL MCH (25-34) pg MCHC (32-36) g/dL RDW Std Deviation (36.4-46.3) fL RDW Coeff of Juanita (11.5-14.5) % Plt Count (130-400) K/uL MPV (7.4-10.4) fL Immature Gran % (Auto) % Neut % (Auto) % Lymph % (Auto) % [place] % (Auto) % Eos % (Auto) % Baso % (Auto) % Neut # (Auto) (1.4-6.5) K/uL Lymph # (Auto) (1.2-3.4) K/uL [place] # (Auto) (0.11-0.59) K/uL Eos # (Auto) (0-0.5) K/uL Baso # (Auto) (0-0.2) K/uL Immature Gran # (Auto) (0.00-0.02) K/uL PT (9.0-12.0) Seconds INR (0.9-1.1) APTT (21.0-31.0) Seconds PTT Ratio ABG pH (7.35-7.45) ABG pCO2 (35-46) mmHg ABG pO2 (80-95) mmHg ABG HCO3 (19-24) mmol/L ABG O2 Saturation (90-95) % ABG Base Excess (-9-1.8) mEq/L Arian Test (Pos) Barometric Pressure mm/Hg Oxygen Given Sodium (136-145) mmol/L Potassium (3.5-5.1) mmol/L Chloride (98-107) mmol/L Carbon Dioxide (21-32) mmol/L Anion Gap (3-11) BUN (7-18) mg/dl Creatinine (0.6-1.2) mg/dl Est Cr Clr Drug Dosing Est GFR ( Amer) Est GFR (Non-Af Amer) BUN/Creatinine Ratio (10-20) Glucose (70-99) mg/dl POC Glucose 110 H 156 H (70-99) mg/dl Estimat Average Glucose 169 mg/dl Hemoglobin A1c 7.5 H (4.5-5.6) % Calcium (8.5-10.1) mg/dl Magnesium (1.8-2.4) mg/dl Total Bilirubin (0.2-1) mg/dl Direct Bilirubin (0-0.2) mg/dl AST (15-37) U/L ALT (12-78) U/L Alkaline Phosphatase (45-117) U/L Troponin I (0-0.045) ng/ml NT-Pro-B Natriuret Pep (0-1800) pg/ml Total Protein (6.4-8.2) gm/dl Albumin (3.4-5.0) gm/dl Globulin (2.5-4.0) gm/dl Albumin/Globulin Ratio (0.9-2) Lipase (73-393) U/L COVID-19 Eval Order SARS-CoV-2 (PCR) (Negative) Influenza Type A (PCR) (Neg) Influenza Type B (PCR) (Neg) RSV (RT-PCR) (Neg) 01/22/21 01/22/21 01/21/21 Range/Units 05:53 05:53 19:45 WBC 6.99 (4.8-10.8) K/uL RBC 4.64 (4.2-5.4) M/uL Hgb 12.9 (12.0-16.0) g/dL Hct 38.0 (37-47) % MCV 81.9 (80-100) fL MCH 27.8 (25-34) pg MCHC 33.9 (32-36) g/dL RDW Std Deviation 50.3 H (36.4-46.3) fL RDW Coeff of Juanita 16.6 H (11.5-14.5) % Plt Count 208 (130-400) K/uL MPV 11.5 H (7.4-10.4) fL Immature Gran % (Auto) % Neut % (Auto) % Lymph % (Auto) % [place] % (Auto) % Eos % (Auto) % Baso % (Auto) % Neut # (Auto) (1.4-6.5) K/uL Lymph # (Auto) (1.2-3.4) K/uL [place] # (Auto) (0.11-0.59) K/uL Eos # (Auto) (0-0.5) K/uL Baso # (Auto) (0-0.2) K/uL Immature Gran # (Auto) (0.00-0.02) K/uL PT (9.0-12.0) Seconds INR (0.9-1.1) APTT (21.0-31.0) Seconds PTT Ratio ABG pH (7.35-7.45) ABG pCO2 (35-46) mmHg ABG pO2 (80-95) mmHg ABG HCO3 (19-24) mmol/L ABG O2 Saturation (90-95) % ABG Base Excess (-9-1.8) mEq/L Arian Test (Pos) Barometric Pressure mm/Hg Oxygen Given Sodium 138 (136-145) mmol/L Potassium 3.7 (3.5-5.1) mmol/L Chloride 100 (98-107) mmol/L Carbon Dioxide 34 H (21-32) mmol/L Anion Gap 4.0 (3-11) BUN 27 H (7-18) mg/dl Creatinine 0.96 (0.6-1.2) mg/dl Est Cr Clr Drug Dosing 46.3 Est GFR ( Amer) 63.8 Est GFR (Non-Af Amer) 55.1 BUN/Creatinine Ratio 28.2 H (10-20) Glucose 111 H (70-99) mg/dl POC Glucose (70-99) mg/dl Estimat Average Glucose mg/dl Hemoglobin A1c (4.5-5.6) % Calcium 9.1 (8.5-10.1) mg/dl Magnesium (1.8-2.4) mg/dl Total Bilirubin 0.6 (0.2-1) mg/dl Direct Bilirubin (0-0.2) mg/dl AST 24 (15-37) U/L ALT 72 (12-78) U/L Alkaline Phosphatase 64 (45-117) U/L Troponin I (0-0.045) ng/ml NT-Pro-B Natriuret Pep (0-1800) pg/ml Total Protein 6.2 L (6.4-8.2) gm/dl Albumin 3.1 L (3.4-5.0) gm/dl Globulin 3.1 (2.5-4.0) gm/dl Albumin/Globulin Ratio 1.0 (0.9-2) Lipase (73-393) U/L COVID-19 Eval Order SARS-CoV-2 (PCR) NEGATIVE (Negative) Influenza Type A (PCR) Negative (Neg) Influenza Type B (PCR) Negative (Neg) RSV (RT-PCR) Negative (Neg) 01/21/21 01/21/21 01/21/21 Range/Units 19:45 19:38 19:32 WBC (4.8-10.8) K/uL RBC (4.2-5.4) M/uL Hgb (12.0-16.0) g/dL Hct (37-47) % MCV (80-100) fL MCH (25-34) pg MCHC (32-36) g/dL RDW Std Deviation (36.4-46.3) fL RDW Coeff of Juanita (11.5-14.5) % Plt Count (130-400) K/uL MPV (7.4-10.4) fL Immature Gran % (Auto) % Neut % (Auto) % Lymph % (Auto) % [place] % (Auto) % Eos % (Auto) % Baso % (Auto) % Neut # (Auto) (1.4-6.5) K/uL Lymph # (Auto) (1.2-3.4) K/uL [place] # (Auto) (0.11-0.59) K/uL Eos # (Auto) (0-0.5) K/uL Baso # (Auto) (0-0.2) K/uL Immature Gran # (Auto) (0.00-0.02) K/uL PT (9.0-12.0) Seconds INR (0.9-1.1) APTT (21.0-31.0) Seconds PTT Ratio ABG pH 7.40 (7.35-7.45) ABG pCO2 53 H (35-46) mmHg ABG pO2 76 L (80-95) mmHg ABG HCO3 32 H (19-24) mmol/L ABG O2 Saturation 95.4 H (90-95) % ABG Base Excess 5.7 H (-9-1.8) mEq/L Arian Test Pos (Pos) Barometric Pressure 729.6 mm/Hg Oxygen Given 40% Sodium (136-145) mmol/L Potassium (3.5-5.1) mmol/L Chloride (98-107) mmol/L Carbon Dioxide (21-32) mmol/L Anion Gap (3-11) BUN (7-18) mg/dl Creatinine (0.6-1.2) mg/dl Est Cr Clr Drug Dosing Est GFR ( Amer) Est GFR (Non-Af Amer) BUN/Creatinine Ratio (10-20) Glucose (70-99) mg/dl POC Glucose (70-99) mg/dl Estimat Average Glucose mg/dl Hemoglobin A1c (4.5-5.6) % Calcium (8.5-10.1) mg/dl Magnesium (1.8-2.4) mg/dl Total Bilirubin (0.2-1) mg/dl Direct Bilirubin (0-0.2) mg/dl AST (15-37) U/L ALT (12-78) U/L Alkaline Phosphatase (45-117) U/L Troponin I (0-0.045) ng/ml NT-Pro-B Natriuret Pep (0-1800) pg/ml Total Protein (6.4-8.2) gm/dl Albumin (3.4-5.0) gm/dl Globulin (2.5-4.0) gm/dl Albumin/Globulin Ratio (0.9-2) Lipase 92 (73-393) U/L COVID-19 Eval Order CovFluRsv at [facility] SARS-CoV-2 (PCR) (Negative) Influenza Type A (PCR) (Neg) Influenza Type B (PCR) (Neg) RSV (RT-PCR) (Neg) 01/21/21 01/21/21 01/21/21 Range/Units 19:32 19:32 19:32 WBC 9.32 (4.8-10.8) K/uL RBC 4.77 (4.2-5.4) M/uL Hgb 13.0 (12.0-16.0) g/dL Hct 39.2 (37-47) % MCV 82.2 (80-100) fL MCH 27.3 (25-34) pg MCHC 33.2 (32-36) g/dL RDW Std Deviation 49.1 H (36.4-46.3) fL RDW Coeff of Juanita 16.4 H (11.5-14.5) % Plt Count 218 (130-400) K/uL MPV 11.5 H (7.4-10.4) fL Immature Gran % (Auto) 0.3 % Neut % (Auto) 82.3 % Lymph % (Auto) 9.0 % [place] % (Auto) 7.9 % Eos % (Auto) 0.4 % Baso % (Auto) 0.1 % Neut # (Auto) 7.66 H (1.4-6.5) K/uL Lymph # (Auto) 0.84 L (1.2-3.4) K/uL [place] # (Auto) 0.74 H (0.11-0.59) K/uL Eos # (Auto) 0.04 (0-0.5) K/uL Baso # (Auto) 0.01 (0-0.2) K/uL Immature Gran # (Auto) 0.03 H (0.00-0.02) K/uL PT 11.4 (9.0-12.0) Seconds INR 1.1 (0.9-1.1) APTT 28.5 (21.0-31.0) Seconds PTT Ratio 1.1 ABG pH (7.35-7.45) ABG pCO2 (35-46) mmHg ABG pO2 (80-95) mmHg ABG HCO3 (19-24) mmol/L ABG O2 Saturation (90-95) % ABG Base Excess (-9-1.8) mEq/L Arian Test (Pos) Barometric Pressure mm/Hg Oxygen Given Sodium 136 (136-145) mmol/L Potassium 4.3 (3.5-5.1) mmol/L Chloride 100 (98-107) mmol/L Carbon Dioxide 31 (21-32) mmol/L Anion Gap 5.0 (3-11) BUN 33 H (7-18) mg/dl Creatinine 1.04 (0.6-1.2) mg/dl Est Cr Clr Drug Dosing Not Reportable Est GFR ( Amer) 57.9 Est GFR (Non-Af Amer) 50.0 BUN/Creatinine Ratio 31.9 H (10-20) Glucose 112 H (70-99) mg/dl POC Glucose (70-99) mg/dl Estimat Average Glucose mg/dl Hemoglobin A1c (4.5-5.6) % Calcium 8.9 (8.5-10.1) mg/dl Magnesium 2.0 (1.8-2.4) mg/dl Total Bilirubin 0.4 (0.2-1) mg/dl Direct Bilirubin < 0.1 (0-0.2) mg/dl AST 39 H (15-37) U/L ALT 87 H (12-78) U/L Alkaline Phosphatase 68 (45-117) U/L Troponin I 0.020 (0-0.045) ng/ml NT-Pro-B Natriuret Pep 1482 (0-1800) pg/ml Total Protein 6.5 (6.4-8.2) gm/dl Albumin 3.2 L (3.4-5.0) gm/dl Globulin (2.5-4.0) gm/dl Albumin/Globulin Ratio (0.9-2) Lipase (73-393) U/L COVID-19 Eval Order SARS-CoV-2 (PCR) (Negative) Influenza Type A (PCR) (Neg) Influenza Type B (PCR) (Neg) RSV (RT-PCR) (Neg) Medications Administered Current Inpatient Medications Acetaminophen (Acetaminophen 325 Mg Tab) 650 mg PO Q4H PRN PRN Reason: Pain or Fever Stop: 02/21/21 00:38 Albuterol (Albuterol Hfa 8 Gm Inhaler) 1 puffs INH Q6H PRN PRN Reason: Shortness Of Breath Stop: 02/20/21 21:44 Amlodipine Besylate (Amlodipine Besylate 5 Mg Tab) 10 mg PO DAILY SYMONE Stop: 02/21/21 08:59 Last Admin: 01/22/21 01:37 Dose: 10 mg Documented by: Atorvastatin Calcium (Atorvastatin 40 Mg Tab) 40 mg PO DAILY SYMONE Stop: 02/21/21 08:59 Last Admin: 01/22/21 09:34 Dose: 40 mg Documented by: Clopidogrel Bisulfate (Clopidogrel Bisulfate 75 Mg Tab) 75 mg PO DAILY SYMONE Stop: 02/21/21 08:59 Last Admin: 01/22/21 09:34 Dose: 75 mg Documented by: Dextrose (Dextrose 50% 50 Ml Syringe) 25 - 50 ml IV UD PRN; Protocol PRN Reason: Hypoglycemia Protocol Stop: 02/20/21 21:44 Enoxaparin Sodium (Enoxaparin Inj 40 Mg/0.4 Ml Syr) 40 mg SQ Q24H SYMONE Stop: 02/21/21 08:59 Last Admin: 01/22/21 09:34 Dose: 40 mg Documented by: Glucagon (Glucagon For Inj 1 Mg Vial) 1 mg SQ UD PRN; Protocol PRN Reason: Hypoglycemia Protocol Stop: 02/20/21 21:44 Glucose (Glucose 10 Tabs/Tube) 4 - 8 tabs PO UD PRN; Protocol PRN Reason: Hypoglycemia Protocol Stop: 02/20/21 21:44 Glucose (Glucose 40% Gel 15 Gm Tube) 15 - 30 gm PO UD PRN; Protocol PRN Reason: Hypoglycemia Protocol Stop: 02/20/21 21:44 Hydrochlorothiazide (Hydrochlorothiazide 25 Mg Tab) 25 mg PO DAILY SYMONE Stop: 02/21/21 08:59 Last Admin: 01/22/21 09:33 Dose: 25 mg Documented by: Insulin Aspart (Insulin Aspart 100 Units/Ml 3 Ml Pen) 0 units SC ACHS SYMONE Stop: 02/21/21 07:29 Last Admin: 01/22/21 17:07 Dose: 6 units Documented by: Insulin Glargine (Insulin Glargine Solostar 100 Units/Ml 3 Ml Pen) 16 units SQ HS SYMONE Stop: 02/21/21 20:59 Lisinopril (Lisinopril 40 Mg Tab) 40 mg PO DAILY SYMONE Stop: 02/21/21 08:59 Last Admin: 01/22/21 09:33 Dose: 40 mg Documented by: Miscellaneous (Carbohydrates For Hypoglycemia ) 15 - 30 gm PO UD PRN PRN Reason: Hypoglycemia Protocol Stop: 02/20/21 21:44 Ondansetron HCl (Ondansetron Inj 2 Mg/Ml 2 Ml Vial) 4 mg IV Q6H PRN PRN Reason: Nausea Stop: 02/21/21 00:38 Polyethylene Glycol (Polyethylene (Miralax) 17 Gm Pack) 17 gm PO DAILY PRN PRN Reason: Constipation Stop: 02/21/21 00:38 Risperidone (Risperidone 3 Mg Tablet) 3 mg PO DAILY SYMONE Stop: 02/21/21 08:59 Last Admin: 01/22/21 09:33 Dose: 3 mg Documented by: Venlafaxine HCl (Venlafaxine Hcl Xr 75 Mg Capxr) 75 mg PO DAILY SYMONE Stop: 02/21/21 08:59 Last Admin: 01/22/21 09:33 Dose: 75 mg Documented by: Venlafaxine HCl (Venlafaxine Hcl Xr 150 Mg Capxr) 150 mg PO DAILY SYMONE Stop: 02/21/21 08:59 Last Admin: 01/22/21 09:33 Dose: 150 mg Documented by: Vitamin D (Cholecalciferol 1,000 Units 25 Mcg Tab) 2,000 units PO DAILY SYMONE Stop: 02/21/21 08:59 Last Admin: 01/22/21 09:34 Dose: 2,000 units Documented by: Resident Activity Tracking Resident Involvement: Resident Care Provided Care Provided: Adult [facility] Medicine (1) Carotid artery stenosis Laterality: bilateral Qualified Code(s): I65.23 - Occlusion and stenosis of bilateral carotid arteries (2) Chronic kidney disease, stage 3 (moderate) Chronic kidney disease stage 3 subtype: unspecified whether 3a or 3b Qualified Code(s): N18.30 - Chronic kidney disease, stage 3 unspecified (3) Depression Active/Remission status: remission status unspecified Depression Type: major depressive disorder Major depression recurrence: unspecified whether recurrent Qualified Code(s): F32.9 - Major depressive disorder, single episode, unspecified (4) Controlled type 2 diabetes mellitus with kidney complication, with long-term current use of insulin Chronic kidney disease stage: unspecified stage Diabetes mellitus complication detail: with chronic kidney disease Qualified Code(s): E11.22 - Type 2 diabetes mellitus with diabetic chronic kidney disease; Z79.4 - prison (current) use of insulin (5) Hypertension Hypertension type: essential hypertension Qualified Code(s): I10 - Essential (primary) hypertension
[2021-01-22] MEDS: VENLAFAXINE HCL XR 75 MG CAPXR PO SCH (09:33)
[2021-01-22] MEDS: hydroCHLOROthiazide 25 MG TAB PO SCH (09:33)
[2021-01-22] MEDS: VENLAFAXINE HCL XR 150 MG CAPXR PO SCH (09:33)
[2021-01-22] MEDS: lisinopril 40 MG TAB PO SCH (09:33)
[2021-01-22] MEDS: risperiDONE 3 MG TABLET PO SCH (09:33)
[2021-01-22] MEDS: CLOPIDOGREL BISULFATE 75 MG TAB PO SCH (09:34)
[2021-01-22] MEDS: ENOXAPARIN INJ 40 MG/0.4 ML SYR SQ SCH (09:34)
[2021-01-22] MEDS: ATORVASTATIN 40 MG TAB PO SCH (09:34)
[2021-01-22] MEDS: CHOLECALCIFEROL 1,000 UNITS 25 MCG TAB PO SCH (09:34)
[2021-01-22] MEDS: INSULIN ASPART 100 UNITS/ML 3 ML PEN SC SCH ×4 (09:56→20:09)
--- NOTE | 2021-01-22 11:15 | Cardiology Consultation ---
Date of Consultation January 22, 2021 Assessment & Plan (1) Acute on chronic diastolic CHF (congestive heart failure): -improved with a dose of IV Lasix in the emergency room. -would continue intravenous diuretics while hospitalized. -likely secondary to dietary indiscretion with salt. -discussed a low-salt diet. -discussed daily weights and sliding-scale diuretics. -I am happy to see her in follow-up. (2) Sinus bradycardia: -resolved with discontinuation of her metoprolol succinate. (3) Hypertension: -blood pressure this morning adequately controlled. -may need an additional antihypertensive agent as her metoprolol was discontinued. (4) Dyslipidemia: -continue atorvastatin. History of Present Illness Attending Physician: Raymond Ku DO History of Present Illness Mrs. Alfaro is an 80-year-old female admitted yesterday with an acute exacerbation of CHF. This consultation was ordered to assist in her cardiac management. The patient was in her usual state of health until approximately 1 week prior to presentation. The patient began to note progressive exertional dyspnea and some lower extremity edema. On the day of presentation, the patient was noticing shortness of breath rest. She presented to the emergency room for further care. On arrival here, her saturations were in the low 80% range and her chest x-ray noted his pulmonary edema. The patient did not experience any concurrent chest discomfort. She did not experience PND or orthopnea, however, she does sleep in a reclining chair for comfort. She admits to noncompliance with a low-salt diet. She has been eating Augustine Eduard sausage bowls for breakfast, potato chips, and had a large portion of ham for dinner approximately 1 week ago. The patient has never known of a cardiac event. She has not had a cardiac catheterization. Currently, patient is resting comfortably in bed without complaints. Past medical and surgical history 1. Hypertension 2. Hypercholesterolemia 3. Diabetes mellitus 4. Chronic renal failure 5. Cerebrovascular disease->70% RITESH, 50-69% LICA, August 2019 6. Obesity 7. Vitamin-D deficiency 8. Hearing loss 9. DJD 10. Depression 11. History of melanoma 12. T&A 13. D&C intra-ocular lens implants Social history , lives with her daughter and son-in-law. Twenty pack year smoking history No alcohol Family history Noncontributory Review of systems A 10 review systems was negative except for that described above. Allergies Allergy/AdvReac Type Severity Reaction Status Date / Time bacitracin Allergy Unknown UNKNOWN Verified 01/21/21 20:39 polymyxin B Allergy Unknown UNKNOWN Verified 01/21/21 20:39 neomycin Allergy Verified 01/21/21 20:39 [From Neosporin ([id number])] adhesive AdvReac Mild RED AND Verified 01/21/21 20:39 ITCHY Bandaid Allergy Mild red and Uncoded 01/21/21 20:39 itchy Home Medications Medication Instructions Recorded Confirmed Type lancets 30 gauge #25 ea 05/04/19 12/04/20 History pen needle,diabetic dual safty 30 #100 ea 05/04/19 12/04/20 History gauge x 3/16" venlafaxine 75 mg capsule,extended 75 mg PO DAILY cap 05/04/19 01/21/21 History release 24 hr OneTouch Ultra Blue Test Strip #400 ea NS 06/11/19 12/04/20 Rx cholecalciferol (vitamin D3) 50 2,000 units PO DAILY tab 06/21/19 01/21/21 History mcg (2,000 unit) tablet risperidone 3 mg tablet 3 mg PO DAILY tab 06/21/19 01/21/21 History venlafaxine 150 mg 150 mg PO DAILY 07/27/19 01/21/21 History capsule,extended release 24 hr albuterol sulfate 90 mcg/actuation 1 puffs INH Q6H PRN 09/17/19 01/21/21 History aerosol inhaler hydrochlorothiazide 25 mg tablet 25 mg PO DAILY 09/17/19 01/21/21 History lisinopril 40 mg tablet 40 mg PO DAILY #90 tab 12/24/19 01/21/21 Rx clopidogrel 75 mg tablet 75 mg PO DAILY #30 tab 06/27/20 01/21/21 Rx atorvastatin 40 mg tablet 40 mg PO DAILY #90 tab 10/18/20 01/21/21 Rx mupirocin 1 applic TOPICAL BID #15 g 11/30/20 01/21/21 Rx metoprolol succinate 50 mg 50 mg PO DAILY #90 tab 12/27/20 01/21/21 Rx tablet,extended release 24 hr insulin aspart U-100 100 unit/mL 50 unit SQ DAILY 90 Days #45 ml 01/11/21 01/21/21 Rx (3 mL) subcutaneous pen amlodipine 10 mg tablet 10 mg PO DAILY #90 tab 01/12/21 01/21/21 Rx insulin glargine [Lantus Solostar 16 unit SQ HS 01/21/21 01/21/21 History U-100 Insulin] metformin 500 mg PO BID 01/21/21 01/21/21 History Patient History Medical History Anemia Arthritis Carotid artery stenosis Cerumen impaction Chronic kidney disease, stage 3 (moderate) Depression Diabetes mellitus, type II Diabetic retinopathy, nonproliferative Dyslipidemia ETD (eustachian tube dysfunction) History of skin cancer Melanoma Mixed conductive and sensorineural hearing loss of right ear with restricted hearing of left ear No family history of adverse response to anesthesia Obesity, morbid, BMI 40.0-49.9 Pleural effusion Sensorineural hearing loss of both 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) Vitamin D deficiency Surgical History History of cataract surgery History of dilatation and curettage History of ear surgery approx 1984 Hx of tonsillectomy Family History Family/Other Family history of coronary arteriosclerosis Depression Mother Cardiovascular disease Diabetes Other Family history of bleeding disorder No family history of adverse response to anesthesia Social History Smoking Status: Former smoker Tobacco Type: Cigarettes packs per day: 1; Years Smoked: 20; Hx Alcohol Use: No Hx Substance Use: No Preferred Language: Estonian Communication Ability: Effective 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 HEENT exam is negative. Neck is supple with full carotid upstrokes. No obvious bruits. Jugular venous pressure is flat at 90. There is no thyromegaly. Cardiovascular exam reveals a regular rhythm with distant heart sounds. No obvious murmurs. No S3. Lungs are clear without rales, rhonchi or wheezes. Abdomen is soft nontender without bruits. Extremities reveal intact radial artery pulses bilaterally. There is 1+ pretibial edema. Results & Data ([facility]) Vital Signs (Past 12 Hours) Vital Signs Temp Pulse Pulse Pulse Resp BP BP 01/22/21 08:23 36.5 C 64 17 155/62 H 01/22/21 03:40 36.4 C L 62 19 182/66 H 01/22/21 00:44 36.9 C 68 22 201/63 H 01/22/21 00:17 36.5 C 01/22/21 00:12 63 22 224/93 H 01/21/21 23:15 38 L 18 233/83 H Pulse Ox 01/22/21 08:23 93 01/22/21 03:40 95 01/22/21 00:44 95 01/22/21 00:17 01/22/21 00:12 97 01/21/21 23:15 96 Laboratory Results CBC notes hemoglobin of 12.9, hematocrit 38.0, white count 6.99, platelet count 440999. Electrolytes note a sodium of 138, potassium 3.7, chloride 100, bicarb 34, BUN 27, creatinine 0.96, and glucose of 111. Initial troponin I level is 0.02. BNP is normal at 1482. Diagnostic Findings EKG notes sinus bradycardia with a complete right bundle branch block. Chest x- ray notes cardiomegaly and evidence of interstitial edema. Echo cardiac notes normal left ventricular systolic function without wall motion abnormalities. There is mild left ventricular hypertrophy. No valvular heart disease. PG Care Time/CCT Total # of Minutes Spent Total Time Spent with Patient: Total time spent is greater than 50% in coordination of care (as documented) at patient's floor/unit and/or counseling patient: Coding Level of Care Code 52882 Initial Inpt Care Lvl 3 Diagnoses Acute on chronic diastolic CHF (congestive heart failure) I50.33 Sinus bradycardia R00.1 Hypertension I10 Hypertension type: essential hypertension Dyslipidemia E78.5 (1) Hypertension Hypertension type: essential hypertension Qualified Code(s): I10 - Essential (primary) hypertension
--- NOTE | 2021-01-22 11:52 | XCELERA ---
[id number] \\[id number]_[id number]
[2021-01-22] MEDS ORDERED: FUROSEMIDE 20 MG in SYRINGE 0 ML IV ONE (14:00)
--- NOTE | 2021-01-22 14:29 | Electrocardiogram Report ---
Test Reason : Blood Pressure : / mmHG Vent. Rate : 044 BPM Atrial Rate : 044 BPM P-R Int : 174 ms QRS Dur : 122 ms QT Int : 496 ms P-R-T Axes : 069 078 078 degrees QTc Int : 424 ms Poor data quality, interpretation may be adversely affected Sinus rhythm with 2:1 A-V conduction Right bundle branch block Abnormal ECG When compared with ECG of 06-OCT-2017 21:16, Significant changes have occurred Confirmed by Adolfo Todd ([id number]) on 01/22/2021 2:28:37 PM Referred By: REFERRED SELF Confirmed By:Adolfo Todd
--- NOTE | 2021-01-22 14:30 | Electrocardiogram Report ---
Test Reason : Blood Pressure : / mmHG Vent. Rate : 039 BPM Atrial Rate : 039 BPM P-R Int : 176 ms QRS Dur : 128 ms QT Int : 532 ms P-R-T Axes : 081 077 076 degrees QTc Int : 428 ms Sinus rhythm with 2:1 A-V conduction Right bundle branch block Abnormal ECG When compared with ECG of 21-JAN-2021 19:04, (unconfirmed) No significant change Confirmed by Adolfo Todd ([id number]) on 01/22/2021 2:30:02 PM Referred By: REFERRED SELF Confirmed By:Adolfo Todd
--- NOTE | 2021-01-22 17:51 | Billing Data ---
Date of Service January 22, 2021 Coding Level of Care Code 48036 Subseq Hosp Care Lvl 3
[2021-01-22] MEDS ORDERED: INSULIN GLARGINE SOLOSTAR 100 UNITS/ML 3 ML PEN SQ SCH (21:00)
[2021-01-23 06:04] LABS: Basophils # (auto) 0.01 K/uL (0-0.2); Basophils % (auto) 0.2 %; Eosinophils # (auto) 0.17 K/uL (0-0.5); Eosinophils % (auto) 2.6 %; Hematocrit (blood only) 39.1 % (37-47); Hemoglobin 12.7 g/dL (12.0-16.0); Immature Granulocytes # (auto) 0.01 K/uL (0.00-0.02); Immature Granulocytes % (auto) 0.2 %; Lymphocytes # (auto) 0.77 K/uL (1.2-3.4); Lymphocytes % (auto) 11.8 %; Mean Corpuscular Hemoglobin 27.2 pg (25-34); Mean Corpuscular Hgb Conc 32.5 g/dL (32-36); Mean Corpuscular Volume 83.7 fL (80-100); Mean Platelet Volume 10.9 fL (7.4-10.4); Monocytes # (auto) 0.48 K/uL (0.11-0.59); Monocytes % (auto) 7.3 %; Neutrophils % (auto) 77.9 %; Platelet Count 175 K/uL (130-400); RDW Coefficient of Variation 16.3 % (11.5-14.5); RDW Standard Deviation 49.5 fL (36.4-46.3); Red Blood Count 4.67 M/uL (4.2-5.4); White Blood Count 6.54 K/uL (4.8-10.8)
[2021-01-23 06:33] LABS: BUN Creatinine Ratio 29.5 (10-20); Calcium 8.4 mg/dl (8.5-10.1); Creatinine Clr Calc Pharmacy 49.4 ml/min; Est GFR (Non-African American) 59.5; Potassium 3.7 mmol/L (3.5-5.1)
[2021-01-23] MEDS: INSULIN ASPART 100 UNITS/ML 3 ML PEN SC SCH ×2 (09:22→12:33)
[2021-01-23] MEDS: CLOPIDOGREL BISULFATE 75 MG TAB PO SCH (09:24)
[2021-01-23] MEDS: ATORVASTATIN 40 MG TAB PO SCH (09:24)
[2021-01-23] MEDS: VENLAFAXINE HCL XR 75 MG CAPXR PO SCH (09:25)
[2021-01-23] MEDS: CHOLECALCIFEROL 1,000 UNITS 25 MCG TAB PO SCH (09:25)
[2021-01-23] MEDS: risperiDONE 3 MG TABLET PO SCH (09:25)
[2021-01-23] MEDS: VENLAFAXINE HCL XR 150 MG CAPXR PO SCH (09:26)
[2021-01-23] MEDS: lisinopril 40 MG TAB PO SCH (09:26)
[2021-01-23] MEDS: amLODIPine BESYLATE 5 MG TAB PO SCH (09:26)
[2021-01-23] MEDS: ENOXAPARIN INJ 40 MG/0.4 ML SYR SQ SCH (09:27)
[2021-01-23] MEDS: hydroCHLOROthiazide 25 MG TAB PO SCH (09:27)
--- NOTE | 2021-01-23 10:32 | Cardiology Progress Note ---
Date of Service January 23, 2021 Assessment & Plan (1) Acute on chronic diastolic CHF (congestive heart failure): -would continue intravenous diuretics while hospitalized. -likely secondary to dietary indiscretion with salt. -discussed a low-salt diet. -discussed daily weights and sliding-scale diuretics. -normal left ventricular systolic function on current echocardiogram. (2) Sinus bradycardia: -admission EKG notes sinus rhythm with 2-1 AV conduction while on metoprolol. -awake overnight monitor yesterday noted improvement off that medication. (3) Hypertension: -may need an additional antihypertensive agent as her metoprolol was discontinued. (4) Dyslipidemia: -continue atorvastatin. Admission and Anticipated Discharge Date Admission Date: January 21, 2021 Subjective The patient is resting comfortably in bedside chair without complaints of chest pain or dyspnea. She is anxious for hospital discharge. Physical Exam Physical Exam: In general this is an obese white female lying supine in bed without complaints. HEENT exam is negative. Neck is supple with full carotid upstrokes. No obvious bruits. Jugular venous pressure is flat at 90. There is no thyromegaly. Cardiovascular exam reveals a regular rhythm with distant heart sounds. No obvious murmurs. No S3. Lungs are clear without rales, rhonc hi or wheezes. Abdomen is soft nontender without bruits. Extremities reveal intact radial artery pulses bilaterally. There is trace pretibial edema. Results & Data ([facility]) Vital Signs (Past 12 Hours) Vital Signs Temp Pulse Pulse Resp BP Pulse Ox 01/23/21 07:08 36.7 C 75 16 152/69 H 93 01/22/21 22:41 36.5 C 62 18 139/70 97 PG Care Time/CCT Total # of Minutes Spent Total Time Spent with Patient: Total time spent is greater than 50% in coordination of care (as documented) at patient's floor/unit and/or counseling patient: Coding Level of Care Code 49112 Subseq Hosp Care Lvl 3 Diagnoses Acute on chronic diastolic CHF (congestive heart failure) I50.33 Sinus bradycardia R00.1 Hypertension I10 Hypertension type: essential hypertension Dyslipidemia E78.5 (1) Hypertension Hypertension type: essential hypertension Qualified Code(s): I10 - Essential (primary) hypertension
--- NOTE | 2021-01-23 10:39 | Discharge Summary ---
Date of Service January 23, 2021 Admission HPI Per Admitting Provider 80 yo F PMHx bilateral NIDA, HTN, HLD, DM2, depression presented to the ER with shortness of breath. She admits that for the last 2 weeks has felt overall unwell, one week ago began feeling somewhat short of breath, and today after letting her daughter know she was struggling to breathe they came to the ER. Denies recent illness, fevers or chills, abdominal pain, nausea or vomiting, headache, chest pain. In the ER patient was hypoxic to low 80s on room air with improvement on HFNC; she was also hypertensive with systolic 230. Labwork showed no leukocytosis, mild transaminitis, BNP 1492, COVID 19 negative. XR showed pulmonary edema and small bialteral pleural effusions. She was given Lasix 40mg IV x1, as well as nitro x1 given systolic BP. Of note, patient admits to eating a lot of salt-containing foods. She eats Augustine Eduard breakfast bowls and protein bowls from the frozen foods section somewhat frequently, and her daughter states that she eats a lot of potato chips recently. She does not have a history of heart failure. Last Echo was done in 2017, normal LVEF at that time. Principal Diagnosis acute on chronic diastolic chf (hfpef) Discharge Exam Constitutional WD/WN, vitals as above Eyes PERRL, conjunctivae normal, anicteric sclerae Respiratory normal respiratory effort, lungs clear to auscultation Auscultation: no rales and no rhonchi Cardiovascular Rate/Rhythm: regular rate and regular rhythm Heart Sounds: no gallop, no murmur and no cardiac rub Vessels: normal peripheral pulses; no JVD Extremities: + edema (Trace b/l lower extremities) Gastrointestinal (Abdomen) Inspection/Auscultation: normal bowel sounds; abdomen not distended Percussion/Palpation: abdomen soft; abdomen nontender and no guarding Musculoskeletal no cyanosis or clubbing, extremities motor strength 5/5 Skin no rashes, warm and dry Neurologic PERRL, EOMI, accommodation nl, no face palsy, no dysarthria CN's II-XI intact bilaterally and moves all extremities Psychiatric Orientation: alert and oriented x 3 Discharge Data Allergies Allergy/AdvReac Type Severity Reaction Status Date / Time bacitracin Allergy Unknown UNKNOWN Verified 01/21/21 20:39 polymyxin B Allergy Unknown UNKNOWN Verified 01/21/21 20:39 neomycin Allergy Verified 01/21/21 20:39 [From Neosporin ([id number])] adhesive AdvReac Mild RED AND Verified 01/21/21 20:39 ITCHY Bandaid Allergy Mild red and Uncoded 01/21/21 20:39 itchy Consultations 01/21/21 20:55 ED Decision to Admit Stat 01/22/21 03:48 Consult Cardiology Routine Hospital Course (1) Acute respiratory failure with hypoxia: 80 yo F PMHx bilateral NIDA, HTN, HLD, DM2, depression admitted for acute hypoxic respiratory failure in the setting of Acute hypoxic respiratory failure: -On presentation with O2 saturation in low 80s on room air and now on 2LNC. -likely secondary to increased volume status in setting of heart failure with preserved EF, and reported high amounts of sodium consumed daily -XR chest with interstitial pulmonary edema and bilateral small pleural effusions. -BNP 1492, however possibly falsely low due to obesity. -received 40mg IV lasix x1, and 20mg IV lasix x1 with resolution of dyspnea, and improvement in edema -Echocardiogram demonstrating EF of 60-65% with some LVH -Instructed to follow weights daily, and call PCP/Heart Failure clinic if 2lb gain in weight in one day, or if redevelopment of shortness of breath or progressive fatigue -provided with Lasix 40mg PO PRN for weight gain >2lbs in 24hr or development of shortness of breath/orthopnea -Instructed to follow low-sodium (less than 2000mg) diet, but given rapid resolution and apparent sizeable contributions from patient's high salt diet do not think that she will need to have fluid restriction in addition -follow-up in one week with Heart Failure clinic and PCP HTN:. -Initially with BP 230 systolic, down to 185 with nitro. -continue Amlodipine, HCTZ, lisinopril, and metoprolol without change CKD stage 3: -History of, with baseline creatinine 1.0 (GFR 50). -No RAIN this admission. NIDA: -CTA neck from September 2018 showed stable 75% stenosis of the origin of the right ICA and 50% stenosis of the left ICA. -Follows with Dr. Capellan, and [facility] if any intervention would be appropriate. -No neurologic symptoms this admission. -Continue metoprolol -Continue statin. DM2: -continue home diabetic regimen HLD: -Continue statin. (2) Depression: (3) Carotid artery stenosis: (4) Chronic kidney disease, stage 3 (moderate): (5) Dyslipidemia: (6) Controlled type 2 diabetes mellitus with kidney complication, with long-term current use of insulin: (7) Hypertension: Total Time Total Time Spent Total Time Spent (In Minutes): <30 Discharge Plan Discharge Items Patient Disposition: Home - Self-Care Reason For Visit: SOB Discharge Diagnosis: Heart Failure Activity: Per Instructions section Non-emergency contact: Primary Care Provider and Dental Appliance Repairer Call non-emergency contact if: you have any medication questions and your symptoms worsen Follow-up/Referrals: Tab Bellamy MD [Primary Care Provider] - 01/31/21 1:30 pm (Follow-up in one week) Kinza Quintana PA-C [Physician Solar Process Engineer] - 01/30/21 1:30 pm (Follow-up in heart failure clinic in one week) Diet: Carb Consistent or DM2 and Low Sodium (2gm) Addtl Attending Provider Instructions: . Who to Call and When: Call 911 or go to the Emergency Room if: * If at any time you feel your situation is an emergency * You have tightness or pain in your chest that does not go away with rest or Nitroglycerin * You are very short of breath even with rest . Call your Primary Care doctor if any of the following symptoms or problems start or get worse: * Shortness of breath or difficulty breathing * Wake up at night short of breath * Chest pain * Cough * Swelling of your hands, feet, or legs * More fatigued or tired with your normal activity * Palpitations - sudden fast heart beats WEIGHT * Weigh yourself every morning after using the bathroom. * Use the same scale. * Wear the same amount of clothing. * Write your weight down on a chart. * Call your Primary Care doctor if you gain more than 2 pounds in 1 days, and take the 40mg of Lasix. MEDICATIONS * Use this discharge instruction sheet for medication instructions. * Take your medications at the time your doctor ordered. * Do not skip a dose of your medicines. * If you miss a dose of medicine, take it as soon as possible, but DO NOT DOUBLE A DOSE. * Read your medicine information when you get home. * Know all of the side effects of your medicine. If in doubt, ask your pharmacist * Call your Primary Care doctor's office if you have any side effects. * Be sure all of your doctors know what medicine and herbs you take (including cold, flu, and herbal medicine). Take the following with you to your follow-up doctor appointments: * Weight Chart * Medication List * List of questions Do not drink excessive alcohol, beer or wine. Pending Studies at Discharge: No Stand-Alone Forms: My [facility] [employer], Smoking Cessation Medications and DC Order Prescriptions: New furosemide [Lasix] 40 mg tablet 40 mg PO DAILY PRN (Reason: edema) Qty: 10 RF: 0 Continued (DME) OneTouch Ultra Blue Test Strip strip See Dose Instructions .ROUTE .MEDSUPPLY Qty: 400 RF: 3 lisinopril 40 mg tablet 40 mg PO DAILY Qty: 90 RF: 3 clopidogrel 75 mg tablet 75 mg PO DAILY Qty: 30 RF: 11 atorvastatin 40 mg tablet 40 mg PO DAILY Qty: 90 RF: 3 metoprolol succinate 50 mg tablet extended release 24 hr 50 mg PO DAILY Qty: 90 RF: 3 Novolog Flexpen U-100 Insulin 100 unit/mL (3 mL) insulin pen 50 unit SQ DAILY 90 Days Qty: 45 RF: 3 amlodipine 10 mg tablet 10 mg PO DAILY Qty: 90 RF: 3 venlafaxine 75 mg capsule,extended release 24hr 75 mg PO DAILY RF: 0 (DME) BD AutoShield Duo Pen Needle 30 gauge x 3/16" needle See Dose Instructions .ROUTE .MEDSUPPLY Qty: 100 RF: 0 (DME) lancets [OneTouch Delica Lancets] 30 gauge misc See Dose Instructions .ROUTE .MEDSUPPLY Qty: 25 RF: 0 cholecalciferol (vitamin D3) 2,000 unit tablet 2,000 units PO DAILY RF: 0 risperidone 3 mg tablet 3 mg PO DAILY RF: 0 hydrochlorothiazide 25 mg tablet 25 mg PO DAILY RF: 0 albuterol sulfate [Ventolin HFA] 90 mcg/actuation HFA aerosol inhaler 1 puffs INH Q6H PRN (Reason: SOB) RF: 0 venlafaxine 150 mg capsule,extended release 24hr 150 mg PO DAILY RF: 0 mupirocin 2 % ointment 1 applic topical BID Qty: 15 RF: 0 metformin 500 mg tablet 500 mg PO BID RF: 0 Lantus Solostar U-100 Insulin 100 unit/mL (3 mL) insulin pen 16 unit SQ HS RF: 0 Discharge Orders: Discharge Order (Routine); Ordered 01/23/21 Ordered By: Cameron Castillo/Other Patient Handouts: Heart Failure Signs of Flare-Up, Managing Type 2 Diabetes, Heart Failure Making Changes to ..., Managing Diabetes: The A1C Test, Heart Failure: Know Your Baselines Admission Data Admit Date/Time: 01/21/21 21:45 Attending Provider: Raymond Ku Admit Provider: Danya Pearson Primary Care Provider: Tab Bellamy Other Providers: Babrara Zaragoza ; Tonio Tomlin Other Interventions: Discharge Summary Assessment (RN) Last Done: 01/23/21 11:52 Supervising Physician Co-Signing Physician Notes I personally examined the patient and verified all francois points of history and exam, discussed case, and agree with decision making with Dr Stafford. off O2 breathing well feeling up to going home. really expressing good understanding of importance of Na restriction, asking good questions as well. Vitals noted, in general she is awake and alert pleasant no distress. HEENT normocephalic atraumatic mucous membranes moist. Lungs cta b/l no r/r/w no accessory muscle use good effort. Skin shows no rashes no pallor or icterus. Acute on chronic diastolic CHF/acute HFpEFher diet sounds like it would not be unreasonable to suspect she is taking in as much as 5 g of sodium a day lately, certainly this could overwhelm an 80-year-old somewhat stiff heart. now stable for home - since she appears quite motivated and capable of lifestyle change, for now symptom triggered lasix prn only. close outpt f/u. otherwise as above Resident Activity Tracking Resident Involvement: Resident Care Provided Care Provided: Adult Hospital Medicine
--- NOTE | 2021-01-23 12:37 | Billing Data ---
Date of Service January 23, 2021 Coding Level of Care Code D/C Day Management <30 mins
== END 2021-01-23 13:08 | disposition home or self-care (01) | DRG 291 ==
LOC: ED 18:30 → 2S 21:45 → SUATTDRO 21:45 → 2S 01-22 00:24 → 3E 01-22 20:44

== ENCOUNTER 2022-02-21 14:11 | Inpatient (IN) ==
--- NOTE | 2022-02-21 14:33 | Emergency Department Note ---
Impression & Plan [place] (dyspnea on exertion), Pleural effusion, Swelling ED Provider Note Provider: Jm Capellan MD DATE OF SERVICE: 02/21/2022 CHIEF COMPLAINT: Dizziness, weakness HISTORY OF PRESENT ILLNESS: Patient is a 81-year-old female with a past medical history including CKD, diabetes, hypertension, and anemia presenting here brought by daughter today reporting over the past 3 to 4 days has been exp eriencing some dyspnea on exertion and, sinus congestion, increased abdominal and leg swelling right greater than left. No trauma or falls reported. No other sick contacts reported. Patient denies abdominal pain. States maybe she had a little chest pressure earlier but denies significant chest pain or chest pressure right now. No nausea or vomiting reported. Patient and daughter report a history of some fluid overload in the past although states they were cleared by cardiology and did not follow with them regularly. Has tried some Lasix diuretic the last several days which has not helped with the patient report some urinary frequency. REVIEW OF SYSTEMS: A total of 10 review of systems was obtained and negative except as stated above in the HPI. PAST MEDICAL HISTORY: As noted above MEDICATIONS: Reviewed home medications. SOCIAL HISTORY: , distant former smoker. PHYSICAL EXAM: GENERAL: alert and oriented in no acute distress on stretcher although slightly fatigued and appears Head: normocephalic and atraumatic EYES: No injection, discharge or icterus. NECK: Trachea midline. ENT: Mucous membranes pink and moist. LUNGS: Airway patent. No retractions. Breath sounds with diminished bases HEART: Regular rate and rhythm. No chest wall tenderness ABDOMEN: Soft and non-tender, without guarding or rebound mildly distended. SKIN: Acyanotic, warm, dry, without rashes EXTREMITIES: And with 1+ left lower extremity swelling and 2+ right lower extremity swelling without significant tenderness on exam. No open large wounds noted. NEUROLOGICAL: No focal deficits. No aphasia. No facial droop or slurred speech. EK bpm sinus bradycardia with 2-1 AV conduction block with a rate controlled branch block and a QTC of 415. AV conduction block appears similar to previous available from December 2020. CONTINUOUS CARDIAC MONITORING: was ordered and showed a heart rate of 30s-50s bpm in sinus bradycardia with a 2-1 AV conduction block Patient's laboratory studies and imaging reviewed. Differential includes Infection, dehydration, metabolic abnormality, hypo/hyp erglycemia, electrolyte disturbance, anemia, hypoxia, cardiac sources, intracerebral event, toxicologic, neurologic, as well as other pathologies. IMPRESSION/MEDICAL DECISION MAKING: Reviewed patient's medical history. Family and patient report similar episode just over a year ago. Has been on diuretic at home without improvement of symptoms of the last several days. Dizzy but no trauma or falls reported. Denies significant headache. Denies any chest pain now maybe a little bit of chest discomfort earlier. EKG appears similar to previous although she is bradycardic with a 2-1 AV conduction block. Basic labs were sent as well as troponin. CT of the head as well as CT of the chest will be ordered to exclude PE or intracranial abnormality ultrasound of the right lower extremity exclude DVT will be completed. Blood work here returns without leukocytosis and minimal anemia of 11.1. Some slightly worse renal function with creatinine 1.25 noted today with a BUN elevated at 42. BNP is elevated in the 600s and high sensitive troponin somewhat elevated at 89. Review of prior normal sensitivity troponins do show occasionally she has some elevation. Negative Lyme. Urinalysis reassuring. CT the head without acute findings per radiology. CT of the chest without PE but evidence of significant pleural effusions. Believe likely diffuse fluid overload. Given a dose of some Lasix. Believe she needs further monitored diuresis as an inpatient given failed outpatient diuresis. Discussed with the hospitalist. DIAGNOSIS: Fluid overload, dizziness, dyspnea on exertion, weakness, , swelling DISPOSITION: Hospitalist will evaluate Patient was agreeable with this plan. 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) Trauma of upper extremity Vitamin D deficiency Surgical History History of cataract surgery History of dilatation and curettage History of ear surgery approx 1984 Hx of tonsillectomy Family History Family/Other Family history of coronary arteriosclerosis Depression Mother Cardiovascular disease Diabetes Other Family history of bleeding disorder No family history of adverse response to anesthesia Social History Smoking Status: Never smoker Tobacco Type: Cigarettes packs per day: 1; Years Smoked: 20; Hx Alcohol Use: No Hx Substance Use: No Preferred Language: Welsh Communication Ability: Effective Hearing Ability: Hard of Hearing Back Tender Cylinder Required: No Beliefs That Will Affect Care: None marital status: / Current Living Situation: Family Current Living Situation Comment: with daughter current occupational status: retired Other Information That Helps Us Care for You: No Feels Safe at Home: Yes caffeine: Yes during the past year weight has: decreased > 10 lbs Do you think of yourself as: straight/heterosexual Gender Identity: Female Assistive Devices: None Allergies Allergies Allergy/AdvReac Type Severity Reaction Status Date / Time bacitracin Allergy Unknown UNKNOWN Verified 01/01/22 14:06 neomycin Allergy Unknown Unknown Verified 02/21/22 15:52 [From Neosporin ([id number])] polymyxin B Allergy Unknown UNKNOWN Verified 01/01/22 14:06 adhesive AdvReac Mild RED AND Verified 01/01/22 14:06 ITCHY Bandaid Allergy Mild red and Uncoded 01/01/22 14:06 itchy Home Meds Home Medications Medication Instructions Recorded Confirmed lancets 30 gauge ([id number] ea 05/04/19 01/01/22 Lancets) cholecalciferol (vitamin D3) 50 2,000 units PO DAILY tab 06/21/19 02/21/22 mcg (2,000 unit) tablet albuterol sulfate 90 mcg/actuation 2 puffs INH Q6H PRN 09/17/19 02/21/22 aerosol inhaler (Ventolin HFA) mecobalamin (vitamin B12) 5,000 2,500 mcg PO DAILY tab 03/27/21 02/21/22 mcg disintegrating tablet vitamin E (dl, acetate) 180 mg 45 mg PO DAILY 03/27/21 02/21/22 (400 unit) capsule mirtazapine 15 mg tablet 15 mg PO HS 07/03/21 02/21/22 olanzapine 10 mg tablet (Zyprexa) 10 mg PO HS tab 07/03/21 02/21/22 venlafaxine 150 mg 300 mg PO QAM cap 07/03/21 02/21/22 capsule,extended release 24 hr methylphenidate HCl 10 mg tablet 10 mg PO TID tab 08/15/21 02/21/22 (Ritalin) olanzapine 2.5 mg tablet 2.5 mg PO HS 01/01/22 02/21/22 atorvastatin 40 mg tablet 40 mg PO HS 02/21/22 02/21/22 Previous Rx's Medication Instructions Recorded metformin 500 mg tablet 500 mg PO BID #180 tab 05/07/21 clopidogrel 75 mg tablet 75 mg PO DAILY #30 tab 07/06/21 OneTouch Ultra Test (blood sugar #100 ea NS 01/03/22 diagnostic) metoprolol succinate 50 mg 50 mg PO DAILY #90 tab 01/11/22 tablet,extended release 24 hr amlodipine 10 mg tablet 10 mg PO DAILY #90 tab 01/24/22 lisinopril 40 mg tablet 40 mg PO DAILY #90 tab 01/24/22 furosemide 40 mg tablet 40 mg PO DAILY PRN #30 tab 02/20/22 Results & Data (ED) Vital Signs Vital Signs - 24 hr 02/21/22 14:11 02/21/22 14:17 02/21/22 14:27 Temperature 36.5 C Temperature Source Temporal Artery Scan Pulse Rate 40 L Pulse Rate [Apical] 42 L Pulse Rate from SpO2 Sensor Respiratory Rate 20 25 H Respiratory Effort / Characteristics Non-Labored Spontaneous Respiratory Depth Normal Respiratory Pattern Regular Blood Pressure Blood Pressure [Right Arm] 205/67 H Blood Pressure Mean Blood Pressure Mean [Right Arm] 113 Blood Pressure Position [Right Arm] Semi-fowlers Pulse Oximetry 94 95 94 Oxygen Delivery Method Room Air Room Air Room Air Sepsis Recent Fever Within 48 Hours No Sepsis New/Unexplained Change in Mental Status No Sepsis Action Taken by Nursing No Action Required 02/21/22 14:29 02/21/22 14:39 02/21/22 14:41 Temperature Temperature Source Pulse Rate 42 L 39 L Pulse Rate [Apical] Pulse Rate from SpO2 Sensor 42 L 39 L Respiratory Rate 18 21 Respiratory Effort / Characteristics Respiratory Depth Respiratory Pattern Blood Pressure 183/55 H Blood Pressure [Right Arm] Blood Pressure Mean 97 Blood Pressure Mean [Right Arm] Blood Pressure Position [Right Arm] Pulse Oximetry 94 94 94 Oxygen Delivery Method Room Air Room Air Sepsis Recent Fever Within 48 Hours Sepsis New/Unexplained Change in Mental Status Sepsis Action Taken by Nursing 02/21/22 14:51 02/21/22 15:01 02/21/22 15:13 Temperature Temperature Source Pulse Rate 38 L 37 L 36 L Pulse Rate [Apical] Pulse Rate from SpO2 Sensor 38 L 38 L 36 L Respiratory Rate 19 18 20 Respiratory Effort / Characteristics Respiratory Depth Respiratory Pattern Blood Pressure 190/55 H 186/63 H 182/51 H Blood Pressure [Right Arm] Blood Pressure Mean 100 104 94 Blood Pressure Mean [Right Arm] Blood Pressure Position [Right Arm] Pulse Oximetry 92 92 100 Oxygen Delivery Method Sepsis Recent Fever Within 48 Hours Sepsis New/Unexplained Change in Mental Status Sepsis Action Taken by Nursing 02/21/22 16:27 02/21/22 16:30 02/21/22 16:32 Temperature Temperature Source Pulse Rate 38 L 38 L Pulse Rate [Apical] Pulse Rate from SpO2 Sensor 39 L 38 L 38 L Respiratory Rate 17 14 Respiratory Effort / Characteristics Respiratory Depth Respiratory Pattern Blood Pressure 140/78 Blood Pressure [Right Arm] Blood Pressure Mean 98 Blood Pressure Mean [Right Arm] Blood Pressure Position [Right Arm] Pulse Oximetry 96 97 97 Oxygen Delivery Method Sepsis Recent Fever Within 48 Hours Sepsis New/Unexplained Change in Mental Status Sepsis Action Taken by Nursing 02/21/22 17:00 Temperature Temperature Source Pulse Rate 37 L Pulse Rate [Apical] Pulse Rate from SpO2 Sensor 37 L Respiratory Rate 20 Respiratory Effort / Characteristics Respiratory Depth Respiratory Pattern Blood Pressure Blood Pressure [Right Arm] Blood Pressure Mean Blood Pressure Mean [Right Arm] Blood Pressure Position [Right Arm] Pulse Oximetry 97 Oxygen Delivery Method Sepsis Recent Fever Within 48 Hours Sepsis New/Unexplained Change in Mental Status Sepsis Action Taken by Nursing Laboratory Data Result diagrams: 02/21/22 14:43 02/21/22 14:43 Lab Results 02/21/22 02/21/22 02/21/22 Range/Units 14:34 14:37 14:43 WBC 6.70 (4.8-10.8) K/uL RBC 4.00 L (4.2-5.4) M/uL Hgb 11.1 L (12.0-16.0) g/dL POC Hgb 12.2 (12.0-16.0) g/dl Hct 34.5 L (37-47) % POC Hct 36 L (37-47) % MCV 86.3 (80-100) fL MCH 27.8 (25-34) pg MCHC 32.2 (32-36) g/dL RDW Std Deviation 51.6 H (36.4-46.3) fL RDW Coeff of Juanita 16.3 H (11.5-14.5) % Plt Count 266 (130-400) K/uL MPV 11.4 H (7.4-10.4) fL Immature Gran % (Auto) 0.3 % Neut % (Auto) 76.4 % Lymph % (Auto) 15.1 % Baxter % (Auto) 6.9 % Eos % (Auto) 1.0 % Baso % (Auto) 0.3 % Neut # (Auto) 5.12 (1.4-6.5) K/uL Lymph # (Auto) 1.01 L (1.2-3.4) K/uL Baxter # (Auto) 0.46 (0.11-0.59) K/uL Eos # (Auto) 0.07 (0-0.5) K/uL Baso # (Auto) 0.02 (0-0.2) K/uL Immature Gran # (Auto) 0.02 (0.00-0.02) K/uL PT (9.0-12.0) Seconds INR (0.9-1.1) POC Sodium 133 L (135-144) mmol/L Sodium (136-145) mmol/L POC Potassium 4.9 (3.3-5.0) mmol/L Potassium (3.5-5.1) mmol/L POC Chloride 95 L (101-112) mmol/L Chloride (98-107) mmol/L Carbon Dioxide (21-32) mmol/L POC Total CO2 28 (24-31) mmol/L Anion Gap (3-11) POC Anion Gap 15.0 L (16-25) mmol/L POC BUN 39 H (7-18) mg/dl BUN (6-23) mg/dl Creatinine (0.6-1.2) mg/dl POC Creatinine 1.4 H (0.6-1.3) mg/dl Est Cr Clr Drug Dosing ml/min Est GFR ( Amer) ml/min Est GFR (Non-Af Amer) ml/min BUN/Creatinine Ratio (10-20) Glucose (70-99(Fasting)) mg/dl POC Glucose (other) 141 H (70-99) mg/dl Calcium (8.5-10.1) mg/dl POC Ioniz Calcium Anastasiia 1.26 (1.12-1.32) mmol/l Magnesium (1.7-2.4) mg/dl Total Bilirubin (0.2-1.0) mg/dl AST (13-39) U/L ALT (7-52) U/L Alkaline Phosphatase (34-104) U/L Troponin I High Sens (0-14) pg/ml B-Natriuretic Peptide 619 H (0-100) pg/ml Total Protein (6.0-8.3) gm/dl Albumin (3.4-5.0) gm/dl Globulin (2.5-4.0) gm/dl Albumin/Globulin Ratio (0.9-2) Urine Color Urine Appearance (Clear) Urine pH (4.5-7.5) Ur Specific [place] (1.000-1.030) Urine Protein (Negative) Urine Glucose (UA) (Negative) Urine Ketones (Negative) Urine Blood (Negative) Urine Nitrite (Negative) Urine Bilirubin (Negative) Urine Urobilinogen (Negative) Ur Leukocyte Esterase (Negative) Urine WBC (Auto) (0-5) /hpf Urine RBC (Auto) (0-4) /hpf U Hyaline Cast (Auto) (0-5) /lpf U Epithel Cells (Auto) (0-5) /lpf Urine Bacteria (Auto) (Negative) Lyme Disease IgG Ab (Negative) Lyme Disease IgM Ab (Negative) 02/21/22 02/21/22 02/21/22 Range/Units 14:43 14:43 14:43 WBC (4.8-10.8) K/uL RBC (4.2-5.4) M/uL Hgb (12.0-16.0) g/dL POC Hgb (12.0-16.0) g/dl Hct (37-47) % POC Hct (37-47) % MCV (80-100) fL MCH (25-34) pg MCHC (32-36) g/dL RDW Std Deviation (36.4-46.3) fL RDW Coeff of Juanita (11.5-14.5) % Plt Count (130-400) K/uL MPV (7.4-10.4) fL Immature Gran % (Auto) % Neut % (Auto) % Lymph % (Auto) % Baxter % (Auto) % Eos % (Auto) % Baso % (Auto) % Neut # (Auto) (1.4-6.5) K/uL Lymph # (Auto) (1.2-3.4) K/uL Baxter # (Auto) (0.11-0.59) K/uL Eos # (Auto) (0-0.5) K/uL Baso # (Auto) (0-0.2) K/uL Immature Gran # (Auto) (0.00-0.02) K/uL PT 11.4 (9.0-12.0) Seconds INR 1.1 (0.9-1.1) POC Sodium (135-144) mmol/L Sodium 133 L (136-145) mmol/L POC Potassium (3.3-5.0) mmol/L Potassium 4.8 (3.5-5.1) mmol/L POC Chloride (101-112) mmol/L Chloride 97 L (98-107) mmol/L Carbon Dioxide 30 (21-32) mmol/L POC Total CO2 (24-31) mmol/L Anion Gap 6 (3-11) POC Anion Gap (16-25) mmol/L POC BUN (7-18) mg/dl BUN 42 H (6-23) mg/dl Creatinine 1.25 H (0.6-1.2) mg/dl POC Creatinine (0.6-1.3) mg/dl Est Cr Clr Drug Dosing 31.4 ml/min Est GFR ( Amer) 46.1 ml/min Est GFR (Non-Af Amer) 39.7 ml/min BUN/Creatinine Ratio 33.6 H (10-20) Glucose 135 H (70-99(Fasting)) mg/dl POC Glucose (other) (70-99) mg/dl Calcium 9.6 (8.5-10.1) mg/dl POC Ioniz Calcium Anastasiia (1.12-1.32) mmol/l Magnesium 1.9 (1.7-2.4) mg/dl Total Bilirubin 0.3 (0.2-1.0) mg/dl AST 31 (13-39) U/L ALT 37 (7-52) U/L Alkaline Phosphatase 63 (34-104) U/L Troponin I High Sens 89.8 H* (0-14) pg/ml B-Natriuretic Peptide (0-100) pg/ml Total Protein 6.8 (6.0-8.3) gm/dl Albumin 4.2 (3.4-5.0) gm/dl Globulin 2.6 (2.5-4.0) gm/dl Albumin/Globulin Ratio 1.6 (0.9-2) Urine Color Urine Appearance (Clear) Urine pH (4.5-7.5) Ur Specific [place] (1.000-1.030) Urine Protein (Negative) Urine Glucose (UA) (Negative) Urine Ketones (Negative) Urine Blood (Negative) Urine Nitrite (Negative) Urine Bilirubin (Negative) Urine Urobilinogen (Negative) Ur Leukocyte Esterase (Negative) Urine WBC (Auto) (0-5) /hpf Urine RBC (Auto) (0-4) /hpf U Hyaline Cast (Auto) (0-5) /lpf U Epithel Cells (Auto) (0-5) /lpf Urine Bacteria (Auto) (Negative) Lyme Disease IgG Ab Negative (Negative) Lyme Disease IgM Ab Negative (Negative) 02/21/22 02/21/22 Range/Units 15:20 16:51 WBC (4.8-10.8) K/uL RBC (4.2-5.4) M/uL Hgb (12.0-16.0) g/dL POC Hgb (12.0-16.0) g/dl Hct (37-47) % POC Hct (37-47) % MCV (80-100) fL MCH (25-34) pg MCHC (32-36) g/dL RDW Std Deviation (36.4-46.3) fL RDW Coeff of Juanita (11.5-14.5) % Plt Count (130-400) K/uL MPV (7.4-10.4) fL Immature Gran % (Auto) % Neut % (Auto) % Lymph % (Auto) % Baxter % (Auto) % Eos % (Auto) % Baso % (Auto) % Neut # (Auto) (1.4-6.5) K/uL Lymph # (Auto) (1.2-3.4) K/uL Baxter # (Auto) (0.11-0.59) K/uL Eos # (Auto) (0-0.5) K/uL Baso # (Auto) (0-0.2) K/uL Immature Gran # (Auto) (0.00-0.02) K/uL PT (9.0-12.0) Seconds INR (0.9-1.1) POC Sodium (135-144) mmol/L Sodium (136-145) mmol/L POC Potassium (3.3-5.0) mmol/L Potassium (3.5-5.1) mmol/L POC Chloride (101-112) mmol/L Chloride (98-107) mmol/L Carbon Dioxide (21-32) mmol/L POC Total CO2 (24-31) mmol/L Anion Gap (3-11) POC Anion Gap (16-25) mmol/L POC BUN (7-18) mg/dl BUN (6-23) mg/dl Creatinine (0.6-1.2) mg/dl POC Creatinine (0.6-1.3) mg/dl Est Cr Clr Drug Dosing ml/min Est GFR ( Amer) ml/min Est GFR (Non-Af Amer) ml/min BUN/Creatinine Ratio (10-20) Glucose (70-99(Fasting)) mg/dl POC Glucose (other) (70-99) mg/dl Calcium (8.5-10.1) mg/dl POC Ioniz Calcium Anastasiia (1.12-1.32) mmol/l Magnesium (1.7-2.4) mg/dl Total Bilirubin (0.2-1.0) mg/dl AST (13-39) U/L ALT (7-52) U/L Alkaline Phosphatase (34-104) U/L Troponin I High Sens 102.5 H* (0-14) pg/ml B-Natriuretic Peptide (0-100) pg/ml Total Protein (6.0-8.3) gm/dl Albumin (3.4-5.0) gm/dl Globulin (2.5-4.0) gm/dl Albumin/Globulin Ratio (0.9-2) Urine Color Dark Yellow Urine Appearance Clear (Clear) Urine pH 5.5 (4.5-7.5) Ur Specific [place] 1.015 (1.000-1.030) Urine Protein 2+ H (Negative) Urine Glucose (UA) Negative (Negative) Urine Ketones Negative (Negative) Urine Blood Negative (Negative) Urine Nitrite Negative (Negative) Urine Bilirubin Negative (Negative) Urine Urobilinogen Negative (Negative) Ur Leukocyte Esterase Negative (Negative) Urine WBC (Auto) 1-5 (0-5) /hpf Urine RBC (Auto) 0-4 (0-4) /hpf U Hyaline Cast (Auto) 0 (0-5) /lpf U Epithel Cells (Auto) 5-10 H (0-5) /lpf Urine Bacteria (Auto) Negative (Negative) Lyme Disease IgG Ab (Negative) Lyme Disease IgM Ab (Negative) Administered Medications Atorvastatin Calcium (Atorvastatin 40 Mg Tab) 40 mg PO [facility] Stop: 03/23/22 20:59 Last Admin: 02/21/22 20:08 Dose: 40 mg Documented by: [id number] Insulin Aspart (Insulin Aspart Per Unit) 0 units SC [facility] Stop: 03/23/22 20:59 Last Admin: 02/21/22 20:10 Dose: 3 units Documented by: [id number] Cosigned by: [id number] Mirtazapine (Mirtazapine Tab 15 Mg Tab) 15 mg PO [facility] Stop: 03/23/22 20:59 Last Admin: 02/21/22 20:09 Dose: 15 mg Documented by: [id number] Olanzapine (Olanzapine 2.5 Mg Tab) 2.5 mg PO [facility] Stop: 03/23/22 20:59 Last Admin: 02/21/22 20:09 Dose: 2.5 mg Documented by: [id number] Olanzapine (Olanzapine 10 Mg Tab) 10 mg PO [facility] Stop: 03/23/22 20:59 Last Admin: 02/21/22 20:10 Dose: 10 mg Documented by: [id number] Discontinued Medications Furosemide (Furosemide 40 Mg/4 Ml Vial) 40 mg IV ONE ONE Stop: 02/21/22 16:19 Last Admin: 02/21/22 16:48 Dose: 40 mg Documented by: [id number] Ioversol (Optiray 320 125ml) 105 ml IV ONCE ONE Stop: 02/21/22 15:46 Last Admin: 02/21/22 15:46 Dose: 105 ml Documented by: [id number] Methylphenidate HCl (Methylphenidate Hcl 10 Mg Tablet) 10 mg PO ONE STA Stop: 02/21/22 18:35 Last Admin: 02/21/22 19:45 Dose: 10 mg Documented by: [id number] Imaging Data Radiologist's Impression: Chest X-Ray 02/21/22 14:29 XR chest 1V portable CLINICAL HISTORY: Dyspnea TECHNIQUE: Single frontal radiograph of the chest was obtained. Comparison: Comparison is made to chest radiograph 01/21/2021 FINDINGS: No lines and tubes are seen. The cardiomediastinal silhouette is normal. Prominence and cephalization of the vasculature is seen. There is a small left effusion. IMPRESSION: Mild pulmonary edema. Small left pleural effusion. ACT 112: Negative or not required by law. Electronically signed by: Waylon Robert M.D. 02/21/2022 4:23 PM Venous Doppler Study 02/21/22 15:13 RIGHT LOWER EXTREMITY VENOUS DOPPLER HISTORY: Right leg swelling COMPARISON STUDY: None. FINDINGS: There is normal compressibility, flow, and augmentation within the right lower extremity deep venous system. IMPRESSION: No DVT within the right lower extremity ACT 112: Negative or not required by law. Electronically signed by: Willam Reyes M.D. 02/21/2022 4:21 PM Chest CTA 02/21/22 15:14 CT angio chest PE protocol CLINICAL HISTORY: Shortness of breath and lower extremity swelling. Evaluate for pulmonary embolus. COMPARISON STUDY: Previous CTA chest from 10/13/2018 CT DOSE: 520.05 mGycm TECHNIQUE: CT Angio of the chest was performed.followed by image post processing with coronal, and sagittal MIP reformats. Contrast Volume: Optiray 320, 105 ml FINDINGS: Vasculature: There is homogeneous perfusion of the pulmonary vasculature bilaterally. No intraluminal filling defects or evidence for pulmonary embolus is seen. Airway: The airway is clear. No endobronchial lesion is identified. Lungs and pleural: There are moderately large bilateral pleural effusions with compressive atelectasis/collapse present involving both lower lobes. The remainder of the lungs are clear of acute alveolar opacities, air bronchograms or pulmonary nodules. Mediastinum: There is no evidence for pathologic adenopathy. The heart is mildly enlarged. Coronary artery calcification is present. The thoracic aorta is within normal limits. There is no evidence for pericardial effusion. Upper abdomen:The adrenal glands are normal bilaterally. Osseous structures: There is no acute osseous pathology. Impression: 1. No CTA evidence for pulmonary embolus. 2. Moderately large bilateral pleural effusions with compressive atelectasis/collapse of both lower lobes. ACT 112: Negative or not required by law. Electronically signed by: Fermin Salinas M.D. 02/21/2022 3:[address] 02/21/22 15:14 CT head/brain wo con CLINICAL HISTORY: dizzy COMPARISON STUDY: 05/14/2021 CT DOSE: 638.56 mGycm TECHNIQUE: Standard CT of the Brain was performed without IV contrast. A dose lowering technique was utilized adhering to the principles of ALARA. FINDINGS: Extraaxial space: There is no evidence for subdural hematoma. There are no extra-axial fluid collections. Ventricles and cisterns: The ventricles are mildly dilated bilaterally. There is no evidence for midline shift or mass effect. Parenchyma: There is no subarachnoid or intraparenchymal hemorrhage. There is no evidence for an acute infarct or cerebral edema. There is mild cerebral cortical atrophy and decreased attenuation in the periventricular white matter represe nting remote small vessel disease. Stable calcification is seen at the cerebellopontine angle on the left. There are no gross mass lesions. Osseous structures: There is no evidence for an acute fracture. The visualized paranasal sinuses are clear. The mastoid air cells are clear bilaterally. Soft tissues: There is no evidence for focal soft tissue swelling. IMPRESSION: 1. No acute intracerebral pathology. 2. Mild cerebral cortical atrophy and remote small vessel disease are again seen. ACT 112: Negative or not required by law. Electronically signed by: Fermin Salinas M.D. 02/21/2022 3:48 PM Discharge Plan Visit Data Chief Complaint: Shortness of Breath/Dyspnea Stated Complaint: SOB, PULSE IS DOWN TO 39, DIZZINESS ED Provider: Jm Capellan Discharge Problem: [place] (dyspnea on exertion), Pleural effusion, Swelling Patient Disposition: Admitted As Inpatient Discharge Instructions Interventions: ED Discharge Assessment Last Done: 02/21/22 18:40
[2022-02-21 14:55] LABS: iSTAT Creatinine 1.4 mg/dl (0.6-1.3); iSTAT Hemoglobin 12.2 g/dl (12.0-16.0); iSTAT Ionized Calcium 1.26 mmol/l (1.12-1.32); iSTAT Potassium 4.9 mmol/L (3.3-5.0)
[2022-02-21 15:09] LABS: Albumin Globulin Ratio 1.6 (0.9-2); Albumin Level 4.2 gm/dl (3.4-5.0); BUN Creatinine Ratio 33.6 (10-20); Bilirubin,Total 0.3 mg/dl (0.2-1.0); Calcium 9.6 mg/dl (8.5-10.1); Creatinine Clr Calc Pharmacy 31.4 ml/min; Est GFR (African American) 46.1 ml/min; Est GFR (Non-African American) 39.7 ml/min; Globulin 2.6 gm/dl (2.5-4.0); Magnesium 1.9 mg/dl (1.7-2.4); Potassium 4.8 mmol/L (3.5-5.1); Total Protein 6.8 gm/dl (6.0-8.3)
[2022-02-21 15:15] LABS: INR 1.1 (0.9-1.1); Prothrombin Time 11.4 Seconds (9.0-12.0)
[2022-02-21 15:16] LABS: Basophils # (auto) 0.02 K/uL (0-0.2); Basophils % (auto) 0.3 %; Eosinophils # (auto) 0.07 K/uL (0-0.5); Hematocrit (blood only) 34.5 % (37-47); Hemoglobin 11.1 g/dL (12.0-16.0); Immature Granulocytes # (auto) 0.02 K/uL (0.00-0.02); Immature Granulocytes % (auto) 0.3 %; Lymphocytes # (auto) 1.01 K/uL (1.2-3.4); Lymphocytes % (auto) 15.1 %; Mean Corpuscular Hemoglobin 27.8 pg (25-34); Mean Corpuscular Hgb Conc 32.2 g/dL (32-36); Mean Corpuscular Volume 86.3 fL (80-100); Mean Platelet Volume 11.4 fL (7.4-10.4); Monocytes # (auto) 0.46 K/uL (0.11-0.59); Monocytes % (auto) 6.9 %; Neutrophils # (auto) 5.12 K/uL (1.4-6.5); Neutrophils % (auto) 76.4 %; Platelet Count 266 K/uL (130-400); RDW Coefficient of Variation 16.3 % (11.5-14.5); RDW Standard Deviation 51.6 fL (36.4-46.3); Troponin I High Sensitivity 89.8 pg/ml (0-14)
[2022-02-21 15:38] LABS: Appearance Urine Clear (Clear); Bacteria Urine Automated Negative (Negative); Bilirubin Urine Negative (Negative); Blood Urine Negative (Negative); Cast Urine Automated 0 /lpf (0-5); Color Urine Dark Yellow; Glucose Urine UA Negative (Negative); Ketones Urine Negative (Negative); Leukocyte Esterase Urine Negative (Negative); Nitrite Urine Negative (Negative); Protein Urine 2+ (Negative); RBC Urine Automated 0-4 /hpf (0-4); Specific Gravity Urine 1.015 (1.000-1.030); Urobilinogen Urine Negative (Negative); pH Urine 5.5 (4.5-7.5)
[2022-02-21] MEDS ORDERED: OPTIRAY 320 125ml IV ONE (15:45)
--- NOTE | 2022-02-21 15:50 | CT Scan Report ---
CT head/brain wo con CLINICAL HISTORY: dizzy COMPARISON STUDY: 05/14/2021 CT DOSE: 638.56 mGycm TECHNIQUE: Standard CT of the Brain was performed without IV contrast. A dose lowering technique was utilized adhering to the principles of ALARA. FINDINGS: Extraaxial space: There is no evidence for subdural hematoma. There are no extra-axial fluid collecti ons. Ventricles and cisterns: The ventricles are mildly dilated bilaterally. There is no evidence for midl ine shift or mass effect. Parenchyma: There is no subarachnoid or intraparenchymal hemorrhage. There is no evidence for an acut e infarct or cerebral edema. There is mild cerebral cortical atrophy and decreased attenuation in the periventricular white matter representing remote small vessel disease. Stable calcification is seen at the cerebellopontine angle on the left. There are no gross mass lesions. Osseous structures: There is no evidence for an acute fracture. The visualized paranasal sinuses are clear. The mastoid air cells are clear bilaterally. Soft tissues: There is no evidence for focal soft tissue swelling. IMPRESSION: 1. No acute intracerebral pathology. 2. Mild cerebral cortical atrophy and remote small vessel disease are again seen. ACT 112: Negative or not required by law. Electronically signed by: Fermin Salinas M.D. 02/21/2022 3:48 PM
[2022-02-21 15:53] LABS: Lyme Ab IgG w/WB Rflx Negative (Negative); Lyme Ab IgM w/WB Rflx Negative (Negative)
--- NOTE | 2022-02-21 15:56 | CT Scan Report ---
CT angio chest PE protocol CLINICAL HISTORY: Shortness of breath and lower extremity swelling. Evaluate for pulmonary embolus. COMPARISON STUDY: Previous CTA chest from 10/13/2018 CT DOSE: 520.05 mGycm TECHNIQUE: CT Angio of the chest was performed.followed by image post processing with coronal, and s agittal MIP reformats. Contrast Volume: Optiray 320, 105 ml FINDINGS: Vasculature: There is homogeneous perfusion of the pulmonary vasculature bilaterally. No intraluminal filling defects or evidence for pulmonary embolus is seen. Airway: The airway is clear. No endobronchial lesion is identified. Lungs and pleural: There are moderately large bilateral pleural effusions with compressive atelectasi s/collapse present involving both lower lobes. The remainder of the lungs are clear of acute alveolar opacities, air bronchograms or pulmonary nodules. Mediastinum: There is no evidence for pathologic adenopathy. The heart is mildly enlarged. Coronary a rtery calcification is present. The thoracic aorta is within normal limits. There is no evidence for pericardial effusion. Upper abdomen:The adrenal glands are normal bilaterally. Osseous structures: There is no acute osseous pathology. Impression: 1. No CTA evidence for pulmonary embolus. 2. Moderately large bilateral pleural effusions with compressive atelectasis/collapse of both lower l obes. ACT 112: Negative or not required by law. Electronically signed by: Fermin Salinas M.D. 02/21/2022 3:54 PM
[2022-02-21] MEDS ORDERED: FUROSEMIDE 40 MG/4 ML VIAL IV ONE (16:18)
--- NOTE | 2022-02-21 16:22 | Ultrasound Report ---
RIGHT LOWER EXTREMITY VENOUS DOPPLER HISTORY: Right leg swelling COMPARISON STUDY: None. FINDINGS: There is normal compressibility, flow, and augmentation within the right lower extremity de ep venous system. IMPRESSION: No DVT within the right lower extremity ACT 112: Negative or not required by law. Electronically signed by: Willam Reyes M.D. 02/21/2022 4:21 PM
--- NOTE | 2022-02-21 16:26 | XRay Report ---
XR chest 1V portable CLINICAL HISTORY: Dyspnea TECHNIQUE: Single frontal radiograph of the chest was obtained. Comparison: Comparison is made to chest radiograph 01/21/2021 FINDINGS: No lines and tubes are seen. The cardiomediastinal silhouette is normal. Prominence and cephalization of the vasculature is seen. There is a small left effusion. IMPRESSION: Mild pulmonary edema. Small left pleural effusion. ACT 112: Negative or not required by law. Electronically signed by: Waylon Robert M.D. 02/21/2022 4:23 PM
--- NOTE | 2022-02-21 16:46 | History & Physical Report ---
Date of Service February 21, 2022 Assessment & Plan (1) Acute on chronic heart failure with preserved ejection fraction: Plan: - Fluid retention in the setting of high sodium diet with known HFpEF, does not regularly take Lasix. Also in setting of CKD 3 with proteinuria. - Echo in December 2020 with EF 60 to 65%, no significant valvular disease - 40 mg IV Lasix x1 in ED, will repeat this dose in order 40 IV Lasix twice daily to begin tomorrow. - Update echo. - Patient was seen in heart failure clinic after last admission, last appointment was in February 2021. Would recommend follow-up as outpatient. - Daily weights, strict I & O's, 1.8L fluid restriction, low-sodium/diabetic diet. - Patient on 2L NC, with SPO2 >95%. Do not see saturations below 92% in ED, continue to wean with diuresis. (2) Elevated troponin: Plan: - hs trop 89.8, repeat 2 hours later 102.5. Suspect it is elevated in setting of hypervolemia/CHF, however we will continue to trend overnight. (3) Second degree Mobitz II AV block: Plan: - HR 30-50s on monitor with 2:1 AV block; without hypotension, AMS, chest pain/palpitations. - We will continue to monitor, patient will be on telemetry unit. - Holding metoprolol. (4) Pleural effusion: Plan: - Diurese as above. (5) Hypertension: Plan: - Continue amlodipine, lisinopril. (6) Dyslipidemia: Plan: - Continue atorvastatin 40 mg. (7) Diabetes mellitus, type II: Plan: - Previously insulin-dependent, however lost significant weight and A1c in August 2021 was 5.1. - Accu-Cheks achs with SSI. Without carb ratio. - A1c in AM. - Diabetic/low-sodium diet. (8) Carotid artery stenosis: Plan: - Chronic, stable. - Continue aspirin and Plavix. (9) Chronic kidney disease, stage 3 (moderate): Plan: - Chronic, stable. Follows with Dr. Lee. - Creatinine mildly elevated from baseline of 1-1.10, now 1.25. - Given only a minimal bump in creatinine, will continue lisinopril. Otherwise, avoid nephrotoxic agents, renally dose medications as able. (10) Anemia: Plan: - Chronic, stable. No evidence of acute bleeding. - Hgb 11.1, slightly lower than baseline, probably somewhat diluted due to hypervolemia. - Continue to monitor on a.m. labs. (11) Severe recurrent major depression with psychotic features: Plan: - Follows with Dr. Rivero for ongoing management. - Continue Zyprexa, Remeron, methylphenidate, and venlafaxine. Plan: - Med/tele. - SCDs for DVT ppx. - Full Code. History of Present Illness Chief Complaint: Shortness of breath Primary Care Provider: Tab Bellamy MD Ms. Alfaro is an 81-year-old female with a past medical history significant for HTN, carotid stenosis, HFpEF, dyslipidemia, DM2 with CKD, anemia, and depression who presents today with worsening shortness of breath over the past few days. States she has been less strict with her diet lately, eating more sweets as well as chips and some hot dogs this past week as she was [place] a campsite with family. She has noticed an increase of 3-5 pounds over the past few weeks, with swelling noted in bilateral legs and abdomen, also with associated shortness of breath with activity and a mild cough. She had a leftover prescription for 40 mg of Lasix that she was told to take as needed for weight gain. She took 1 pill yesterday, however this was the last pill she had. Daughter was going to refill prescription today, however due to her shortness of breath combined with a low heart rate at home, came to ED for further evaluation. Otherwise without fever/chills, sputum production, chest pain/pressure, palpitations, PND, orthopnea, calf pain, abdominal pain, nausea, vomiting. In ED, she is hypertensive, also bradycardic with HR 30s40s, 92% on RA so was placed on 2L NC and now SpO2 > 97%. Labs significant for BUN 42, creatinine 1.25, baseline ~1.0. BNP 619. Initial hsTroponin 89.8, repeat 2 hours later 102.5. UA with protein. COVID and Lyme negative. CXR showed mild pulmonary edema and small left pleural effusion, chest CT with moderately large bilateral pleural effusions and compressive atelectasis/collapse of lower lobes. No evidence for PE, venous Doppler without evidence of DVT. Allergies Allergy/AdvReac Type Severity Reaction Status Date / Time bacitracin Allergy Unknown UNKNOWN Verified 01/01/22 14:06 neomycin Allergy Unknown Unknown Verified 02/21/22 15:52 [From Neosporin ([id number])] polymyxin B Allergy Unknown UNKNOWN Verified 01/01/22 14:06 adhesive AdvReac Mild RED AND Verified 01/01/22 14:06 ITCHY Bandaid Allergy Mild red and Uncoded 01/01/22 14:06 itchy Home Medications Medication Instructions Recorded Confirmed Type lancets 30 gauge (OneTouch Delica #25 ea 05/04/19 01/01/22 History Lancets) cholecalciferol (vitamin D3) 50 2,000 units PO DAILY tab 06/21/19 02/21/22 History mcg (2,000 unit) tablet albuterol sulfate 90 mcg/actuation 2 puffs INH Q6H PRN 09/17/19 02/21/22 History aerosol inhaler (Ventolin HFA) mecobalamin (vitamin B12) 5,000 2,500 mcg PO DAILY tab 03/27/21 02/21/22 History mcg disintegrating tablet vitamin E (dl, acetate) 180 mg 45 mg PO DAILY 03/27/21 02/21/22 History (400 unit) capsule metformin 500 mg tablet 500 mg PO BID #180 tab 05/07/21 02/21/22 Rx mirtazapine 15 mg tablet 15 mg PO HS 07/03/21 02/21/22 History olanzapine 10 mg tablet (Zyprexa) 10 mg PO HS tab 07/03/21 02/21/22 History venlafaxine 150 mg 300 mg PO QAM cap 07/03/21 02/21/22 History capsule,extended release 24 hr clopidogrel 75 mg tablet 75 mg PO DAILY #30 tab 07/06/21 02/21/22 Rx methylphenidate HCl 10 mg tablet 10 mg PO TID tab 08/15/21 02/21/22 History (Ritalin) olanzapine 2.5 mg tablet 2.5 mg PO HS 01/01/22 02/21/22 History OneTouch Ultra Test (blood sugar #100 ea NS 01/03/22 Rx diagnostic) metoprolol succinate 50 mg 50 mg PO DAILY #90 tab 01/11/22 02/21/22 Rx tablet,extended release 24 hr amlodipine 10 mg tablet 10 mg PO DAILY #90 tab 01/24/22 02/21/22 Rx lisinopril 40 mg tablet 40 mg PO DAILY #90 tab 01/24/22 02/21/22 Rx furosemide 40 mg tablet 40 mg PO DAILY PRN #30 tab 02/20/22 02/21/22 Rx atorvastatin 40 mg tablet 40 mg PO HS 02/21/22 02/21/22 History 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) Trauma of upper extremity Vitamin D deficiency Surgical History History of cataract surgery History of dilatation and curettage History of ear surgery approx 1984 Hx of tonsillectomy Family History Family/Other Family history of coronary arteriosclerosis Depression Mother Cardiovascular disease Diabetes Other Family history of bleeding disorder No family history of adverse response to anesthesia Social History Smoking Status: Never smoker Tobacco Type: Cigarettes packs per day: 1; Years Smoked: 20; Hx Alcohol Use: No Hx Substance Use: No Preferred Language: Luxembourgish Communication Ability: Effective Hearing Ability: Hard of Hearing Nuclear Process 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 Required: No Beliefs That Will Affect Care: None marital status: / Current Living Situation: Family Current Living Situation Comment: with daughter current occupational status: retired Other Information That Helps Us Care for You: No Feels Safe at Home: Yes caffeine: Yes during the past year weight has: decreased > 10 lbs Do you think of yourself as: straight/heterosexual Gender Identity: Female Assistive Devices: None Review of Systems Review of Systems: Constitutional: weakness, fatigue x 2 days; No fever/chills, myalgias, anorexia, night sweats Eyes: No diplopia, no worsening or blurred vision ENT: normal hearing, no trouble swallowing Respiratory: New cough without sputum, as well as dyspnea on exertion; no sputum production, dyspnea at rest, orthopnea, PND Cardiovascular: No chest pain, tightness or palpitations Abdomen: No pain, nausea, vomiting, diarrhea or constipation : Denies dysuria, hematuria, increased urgency/frequency, urinary retention Musculoskeletal: No joint pain, calf pain, swelling Neurologic: No weakness, numbness/tingling, or balance problems Psychiatric: No anxiety or depression Skin: No rash or itch Physical Exam Physical Exam: General: awake, alert, no apparent distress Head: Normocephalic, atraumatic ENT: PERRL, EOMI, no pharyngeal exudate, mucous membranes moist Chest: Clear to auscultation, on 2 LNC, no adventitious breath sounds Cardiac: Bradycardic, regular rhythm, no murmur, no JVD, normal peripheral pulses, good capillary refill Abdominal: NABS x 4 quadrants, soft, nontender to palpation, no rebound, guarding or tenderness Extremities: Mild bilateral lower extremity edema; normal inspection, no erythema, calfs nontender to palpation Psych: Normal mood and affect Neuro: AAO x 3, strength intact bilaterally and rated 5/5, no motor deficits, speech is clear, no peripheral sensory deficits Skin: no rash or erythema Results & Data Results & Data ([facility]) Vital Signs (Past 12 Hours) Vital Signs Temp Pulse Pulse Resp BP BP Pulse Ox 02/21/22 16:32 38 L 14 140/78 97 02/21/22 16:30 38 L 17 97 02/21/22 16:27 96 02/21/22 15:13 36 L 20 182/51 H 100 02/21/22 15:01 37 L 18 186/63 H 92 02/21/22 14:51 38 L 19 190/55 H 92 02/21/22 14:41 39 L 21 183/55 H 94 02/21/22 14:39 94 02/21/22 14:29 42 L 18 94 02/21/22 14:27 42 L 25 H 205/67 H 94 02/21/22 14:17 36.5 C 40 L 20 95 02/21/22 14:11 94 Laboratory Results Abnormal lab results 02/21/22 02/21/22 02/21/22 Range/Units 14:34 14:37 14:43 RBC 4.00 L (4.2-5.4) M/uL Hgb 11.1 L (12.0-16.0) g/dL Hct 34.5 L (37-47) % POC Hct 36 L (37-47) % RDW Std Deviation 51.6 H (36.4-46.3) fL RDW Coeff of Juanita 16.3 H (11.5-14.5) % MPV 11.4 H (7.4-10.4) fL Lymph # (Auto) 1.01 L (1.2-3.4) K/uL POC Sodium 133 L (135-144) mmol/L Sodium (136-145) mmol/L POC Chloride 95 L (101-112) mmol/L Chloride (98-107) mmol/L POC Anion Gap 15.0 L (16-25) mmol/L POC BUN 39 H (7-18) mg/dl BUN (6-23) mg/dl Creatinine (0.6-1.2) mg/dl POC Creatinine 1.4 H (0.6-1.3) mg/dl BUN/Creatinine Ratio (10-20) Glucose (70-99(Fasting)) mg/dl POC Glucose (other) 141 H (70-99) mg/dl Troponin I High Sens (0-14) pg/ml B-Natriuretic Peptide 619 H (0-100) pg/ml Urine Protein (Negative) U Epithel Cells (Auto) (0-5) /lpf 02/21/22 02/21/22 Range/Units 14:43 15:20 RBC (4.2-5.4) M/uL Hgb (12.0-16.0) g/dL Hct (37-47) % POC Hct (37-47) % RDW Std Deviation (36.4-46.3) fL RDW Coeff of Juanita (11.5-14.5) % MPV (7.4-10.4) fL Lymph # (Auto) (1.2-3.4) K/uL POC Sodium (135-144) mmol/L Sodium 133 L (136-145) mmol/L POC Chloride (101-112) mmol/L Chloride 97 L (98-107) mmol/L POC Anion Gap (16-25) mmol/L POC BUN (7-18) mg/dl BUN 42 H (6-23) mg/dl Creatinine 1.25 H (0.6-1.2) mg/dl POC Creatinine (0.6-1.3) mg/dl BUN/Creatinine Ratio 33.6 H (10-20) Glucose 135 H (70-99(Fasting)) mg/dl POC Glucose (other) (70-99) mg/dl Troponin I High Sens 89.8 H* (0-14) pg/ml B-Natriuretic Peptide (0-100) pg/ml Urine Protein 2+ H (Negative) U Epithel Cells (Auto) 5-10 H (0-5) /lpf Diagnostic Findings Chest X-Ray 02/21/22 14:29 XR chest 1V portable CLINICAL HISTORY: Dyspnea TECHNIQUE: Single frontal radiograph of the chest was obtained. Comparison: Comparison is made to chest radiograph 01/21/2021 FINDINGS: No lines and tubes are seen. The cardiomediastinal silhouette is normal. Prominence and cephalization of the vasculature is seen. There is a small left effusion. IMPRESSION: Mild pulmonary edema. Small left pleural effusion. ACT 112: Negative or not required by law. Electronically signed by: Waylon Robert M.D. 02/21/2022 4:23 PM Venous Doppler Study 02/21/22 15:13 RIGHT LOWER EXTREMITY VENOUS DOPPLER HISTORY: Right leg swelling COMPARISON STUDY: None. FINDINGS: There is normal compressibility, flow, and augmentation within the right lower extremity deep venous system. IMPRESSION: No DVT within the right lower extremity ACT 112: Negative or not required by law. Electronically signed by: Willam Reyes M.D. 02/21/2022 4:21 PM Chest CTA 02/21/22 15:14 CT angio chest PE protocol CLINICAL HISTORY: Shortness of breath and lower extremity swelling. Evaluate for pulmonary embolus. COMPARISON STUDY: Previous CTA chest from 10/13/2018 CT DOSE: 520.05 mGycm TECHNIQUE: CT Angio of the chest was performed.followed by image post processing with coronal, and sagittal MIP reformats. Contrast Volume: Optiray 320, 105 ml FINDINGS: Vasculature: There is homogeneous perfusion of the pulmonary vasculature bilaterally. No intraluminal filling defects or evidence for pulmonary embolus is seen. Airway: The airway is clear. No endobronchial lesion is identified. Lungs and pleural: There are moderately large bilateral pleural effusions with compressive atelectasis/collapse present involving both lower lobes. The britney maxim of the lungs are clear of acute alveolar opacities, air bronchograms or pulmonary nodules. Mediastinum: There is no evidence for pathologic adenopathy. The heart is mildly enlarged. Coronary artery calcification is present. The thoracic aorta is within normal limits. There is no evidence for pericardial effusion. Upper abdomen:The adrenal glands are normal bilaterally. Osseous structures: There is no acute osseous pathology. Impression: 1. No CTA evidence for pulmonary embolus. 2. Moderately large bilateral pleural effusions with compressive atelectasis/collapse of both lower lobes. ACT 112: Negative or not required by law. Electronically signed by: Fermin Salinas M.D. 02/21/2022 3:[address] 02/21/22 15:14 CT head/brain wo con CLINICAL HISTORY: dizzy COMPARISON STUDY: 05/14/2021 CT DOSE: 638.56 mGycm TECHNIQUE: Standard CT of the Brain was performed without IV contrast. A dose lowering technique was utilized adhering to the principles of ALARA. FINDINGS: Extraaxial space: There is no evidence for subdural hematoma. There are no extra-axial fluid collections. Ventricles and cisterns: The ventricles are mildly dilated bilaterally. There is no evidence for midline shift or mass effect. Parenchyma: There is no subarachnoid or intraparenchymal hemorrhage. There is no evidence for an acute infarct or cerebral edema. There is mild cerebral cortical atrophy and decreased attenuation in the periventricular white matter representing remote small vessel disease. Stable calcification is seen at the cerebellopontine angle on the left. There are no gross mass lesions. Osseous structures: There is no evidence for an acute fracture. The visualized paranasal sinuses are clear. The mastoid air cells are clear bilaterally. Soft tissues: There is no evidence for focal soft tissue swelling. IMPRESSION: 1. No acute intracerebral pathology. 2. Mild cerebral cortical atrophy and remote small vessel disease are again seen. ACT 112: Negative or not required by law. Electronically signed by: Fermin Salinas M.D. 02/21/2022 3:48 PM ECG Additional Comments: Marked sinus bradycardia Possible Left atrial enlargement Right bundle branch block Abnormal ECG When compared with ECG of 21-JAN-2021 19:46, No significant change was found. Code Status & VTE Plan Code Status Full code. Supervising Physician Co-Signing Physician Notes I personally saw and examined the patient. I verified all francois points and agree with Mariam Sahu PA-C with the following exceptions and/or additions: 81 year old female admission with slowly progressively worsening shortness of breath with associated weight gain. Similar to admission in December 2020. EKG with type 1 second degree HB while on metoprolol (last took this morning). O/E HS1+2, bradycardia, no murmurs, Chest sounds absent breath sounds bibasal, no crackles or wheeze, Abdo SNT A/P Hypervolemia - suspect more CKD related with proteinuria than heart failure however will repeat TTE. Agree with Lasix 40mg IV BID. Daily weights. Strict I&Os. Possibly has 10kg to lose looking at weights from EHR. Second degree heart block, Mobitz 2 - while on metoprolol, d/c metoprolol. Minimal symptoms with this, occasional dizziness on exertion. Consult cardiology as if does not resolve with stopping metoprolol will require pacemaker. PG Care Time/CCT Total # of Minutes Spent Total Time Spent with Patient: Total time spent is greater than 50% in coordination of care (as documented) at patient's floor/unit and/or counseling patient: Coding Level of Care Code 77136 Initial Inpt Care Lvl 3 Diagnoses Acute on chronic heart failure with preserved ejection fraction I50.33 Severe recurrent major depression with psychotic features F33.3 Pleural effusion J90 Carotid artery stenosis I65.23 Laterality: bilateral Chronic kidney disease, stage 3 (moderate) N18.30 Chronic kidney disease stage 3 subtype: unspecified whether 3a or 3b Diabetes mellitus, type II E11.9 Dyslipidemia E78.5 Hypertension I10 Hypertension type: essential hypertension Anemia D64.9 Elevated troponin R77.8 Second degree Mobitz II AV block I44.1 (1) Carotid artery stenosis Laterality: bilateral Qualified Code(s): I65.23 - Occlusion and stenosis of bilateral carotid arteries (2) Chronic kidney disease, stage 3 (moderate) Chronic kidney disease stage 3 subtype: unspecified whether 3a or 3b Qualified Code(s): N18.30 - Chronic kidney disease, stage 3 unspecified (3) Hypertension Hypertension type: essential hypertension Qualified Code(s): I10 - Essential (primary) hypertension
[2022-02-21] MEDS ORDERED: METHYLPHENIDATE HCL 10 MG TABLET PO STA (18:34)
[2022-02-21] MEDS ORDERED: GLUCOSE 40% GEL 15 GM TUBE PO PRN (19:03)
[2022-02-21] MEDS ORDERED: ALBUTEROL HFA 8 GM INHALER INH PRN (19:03)
[2022-02-21] MEDS ORDERED: ONDANSETRON INJ 2 MG/ML 2 ML VIAL IV PRN (19:03)
[2022-02-21] MEDS ORDERED: ACETAMINOPHEN 325 MG TAB PO PRN (19:03)
[2022-02-21] MEDS ORDERED: GLUCAGON FOR INJ 1 MG VIAL SQ PRN (19:03)
[2022-02-21] MEDS ORDERED: CARBOHYDRATES FOR HYPOGLYCEMIA PO PRN (19:03)
[2022-02-21] MEDS ORDERED: POLYETHYLENE (MIRALAX) 17 GM PACK PO PRN (19:03)
[2022-02-21] MEDS ORDERED: GLUCOSE 10 TABS/TUBE PO PRN (19:03)
[2022-02-21] MEDS ORDERED: DEXTROSE 50% 50 ML SYRINGE IV PRN (19:03)
[2022-02-21] MEDS: ATORVASTATIN 40 MG TAB PO SCH (20:08)
[2022-02-21] MEDS: MIRTAZAPINE TAB 15 MG TAB PO SCH (20:09)
[2022-02-21] MEDS: OLANZAPINE 2.5 MG TAB PO SCH (20:09)
[2022-02-21] MEDS: INSULIN ASPART PER UNIT SC SCH (20:10)
[2022-02-21] MEDS: OLANZapine 10 MG TAB PO SCH (20:10)
--- NOTE | 2022-02-21 22:18 | Electrocardiogram Report ---
Test Reason : Blood Pressure : / mmHG Vent. Rate : 044 BPM Atrial Rate : 044 BPM P-R Int : 170 ms QRS Dur : 130 ms QT Int : 486 ms P-R-T Axes : 071 069 058 degrees QTc Int : 415 ms Sinus rhythm with 2nd degree A-V block and 2:1 AV block Possible Left atrial enlargement Right bundle branch block Abnormal ECG When compared with ECG of 21-JAN-2021 19:46, No significant change was found Confirmed by Tonio Tomlin ([id number]) on 02/21/2022 10:18:39 PM Referred By: REFERRED SELF Confirmed By:Tonio Tomlin
[2022-02-22 06:19] LABS: Basophils # (auto) 0.02 K/uL (0-0.2); Basophils % (auto) 0.4 %; Eosinophils # (auto) 0.13 K/uL (0-0.5); Eosinophils % (auto) 2.4 %; Hematocrit (blood only) 31.5 % (37-47); Hemoglobin 10.2 g/dL (12.0-16.0); Immature Granulocytes # (auto) 0.01 K/uL (0.00-0.02); Immature Granulocytes % (auto) 0.2 %; Lymphocytes # (auto) 1.35 K/uL (1.2-3.4); Lymphocytes % (auto) 24.5 %; Mean Corpuscular Hemoglobin 27.3 pg (25-34); Mean Corpuscular Hgb Conc 32.4 g/dL (32-36); Mean Corpuscular Volume 84.5 fL (80-100); Mean Platelet Volume 10.8 fL (7.4-10.4); Monocytes # (auto) 0.57 K/uL (0.11-0.59); Monocytes % (auto) 10.3 %; Neutrophils # (auto) 3.44 K/uL (1.4-6.5); Neutrophils % (auto) 62.2 %; Platelet Count 230 K/uL (130-400); RDW Coefficient of Variation 16.5 % (11.5-14.5); RDW Standard Deviation 50.5 fL (36.4-46.3); Red Blood Count 3.73 M/uL (4.2-5.4); White Blood Count 5.52 K/uL (4.8-10.8)
[2022-02-22 06:58] LABS: Calcium 9.1 mg/dl (8.5-10.1); Creatinine Clr Calc Pharmacy 27.4 ml/min; Est GFR (African American) 40.5 ml/min; Potassium 4.2 mmol/L (3.5-5.1)
[2022-02-22 07:14] LABS: Estimated Average Glucose 111 mg/dl; Hemoglobin A1C 5.5 % (4.5-5.6)
[2022-02-22] MEDS: INSULIN ASPART PER UNIT SC SCH ×4 (07:56→21:35)
[2022-02-22] MEDS: TOCOPHERYL, DL-ALPHA 400 UNITS 180 MG CAP PO SCH (08:03)
[2022-02-22] MEDS: METHYLPHENIDATE HCL 10 MG TABLET PO SCH ×3 (08:03→17:19)
[2022-02-22] MEDS: CYANOCOBALAMIN (B-12) 2,500 MCG TABLET SL SCH (08:03)
[2022-02-22] MEDS: amLODIPine BESYLATE 5 MG TAB PO SCH (08:03)
[2022-02-22] MEDS: CLOPIDOGREL BISULFATE 75 MG TAB PO SCH (08:04)
[2022-02-22] MEDS: VENLAFAXINE HCL XR 150 MG CAPXR PO SCH (08:04)
[2022-02-22] MEDS: CHOLECALCIFEROL 1,000 UNITS 25 MCG TAB PO SCH (08:04)
[2022-02-22] MEDS: FUROSEMIDE 40 MG/4 ML VIAL IV SCH ×2 (08:08→17:49)
[2022-02-22 08:14] LABS: Creatinine Urine Random 61.5 mg/dl; Protein Creatinine Ratio Urine 0.9 (0-0.2); Total Protein Urine Random 56.8 mg/dl (0-11.9)
--- NOTE | 2022-02-22 12:30 | XCELERA ---
[id number]
--- NOTE | 2022-02-22 13:01 | Hospitalist Progress Note ---
Date of Service February 22, 2022 Assessment & Plan (1) Acute on chronic heart failure with preserved ejection fraction: Plan: Heavy concern that high-degree AV block and bradycardia has led to decompensated diastolic CHF. [facility] [place] Cardiology addressing AV block (see below). Beta elias on hold due to #2. Cont IV lasix 40mg BID. Repeat BMP am. Fluid restrict to 1500cc/day. Daily weights. (2) Second degree Mobitz II AV block: Plan: Although metoprolol succinate could be contributing to bradycardia we are 24+ hours out from her last dose and she remains with 2:1 block. This would argue she has intrinsic conduction disease and very well may need permanent pacemaker placement. Dr Weinstein from EP has seen; tentatively patient is on schedule for pacer placement on 02/26. Continue telemetry. Hold metoprolol. Lyme negative. Check TSH for completeness sake. (3) Elevated troponin: Plan: 2nd to myocardial demand ischemia in setting of #1 above. No evidence of ACS. Echo without WMA. (4) Pleural effusion: Plan: Cont IV lasix. Would not pursue thoracentesis at this time. (5) Hypertension: Plan: Continue amlodipine. Hold lisinopril. Hold metoprolol xl. (6) Dyslipidemia: Plan: Continue atorvastatin 40 mg. (7) Diabetes mellitus, type II: Plan: HbA1C 5.5% - not even in pre-DM range. BSGs here have been excellent. Can stop BSG checks. Can get rid of DM diet. (8) Carotid artery stenosis: Plan: Noted. Continue aspirin and Plavix. (9) Chronic kidney disease, stage 3 (moderate): Plan: Chronic, stable. Follows with Dr. Lee. Mild rise in Cr overnight likely from AV block with hypoperfusion as well as diuresis. Daily BMP. (10) Anemia: Plan: H/H mildly low but stable. (11) Severe recurrent major depression with psychotic features: Plan: Follows with Dr. Rivero for ongoing management as outpatient. Cont Zyprexa, Remeron, methylphenidate, and venlafaxine. Plan: since pacemaker isn't planned until next week would add SC heparin for DVT proph starting tomorrow daughter Siobhan updated by phone this evening Admission and Anticipated Discharge Date Admission Date: February 21, 2022 Subjective tele overnight - HRs about 40BPM remains in 2:1 AV block pt feels a little better today with respect to breathing no PND or orthopnea overnight no chest pain walking to the bathroom does still lead to dyspnea and she continues with O2 requirement I spoke with Dr Todd from cardiology - he is aware of AV block Review of Systems Review of Systems: gen - no fever, eating fine cv - no chest pain pulm - no cough GI - no pain Physical Exam Physical Exam: gen - NAD, pleasant neck - mild JVD mouth - MMM heart - bradycardic, s1 s2, no murmur lungs - decreased BS bases, minimal rales bases, no wheeze; no increased work of breathing abd - soft NT ND BS+ ext - trace edema b/l, pulses 2+ b/l psych - a/o x 3 Results & Data Results & Data ([facility]) Vital Signs (Past 12 Hours) Vital Signs Temp Pulse Resp BP BP Pulse Ox 02/22/22 12:24 36.5 C 40 L 19 172/52 H 96 02/22/22 07:28 36.5 C 41 L 18 179/50 H 92 02/22/22 03:53 36.3 C L 33 L 20 159/98 H 96 Laboratory Results Laboratory Results - last 24 hr 02/21/22 02/21/22 02/21/22 14:34 14:37 14:43 WBC 6.70 RBC 4.00 L Hgb 11.1 L POC Hgb 12.2 Hct 34.5 L POC Hct 36 L MCV 86.3 MCH 27.8 MCHC 32.2 RDW Std Deviation 51.6 H RDW Coeff of Juanita 16.3 H Plt Count 266 MPV 11.4 H Immature Gran % (Auto) 0.3 Neut % (Auto) 76.4 Lymph % (Auto) 15.1 Shackelford % (Auto) 6.9 Eos % (Auto) 1.0 Baso % (Auto) 0.3 Neut # (Auto) 5.12 Lymph # (Auto) 1.01 L Shackelford # (Auto) 0.46 Eos # (Auto) 0.07 Baso # (Auto) 0.02 Immature Gran # (Auto) 0.02 PT INR POC Sodium 133 L Sodium POC Potassium 4.9 Potassium POC Chloride 95 L Chloride Carbon Dioxide POC Total CO2 28 Anion Gap POC Anion Gap 15.0 L POC BUN 39 H BUN Creatinine POC Creatinine 1.4 H Est Cr Clr Drug Dosing Est GFR ( Amer) Est GFR (Non-Af Amer) BUN/Creatinine Ratio Glucose POC Glucose POC Glucose (other) 141 H Estimat Average Glucose Hemoglobin A1c Calcium POC Ioniz Calcium Anastasiia 1.26 Magnesium Total Bilirubin AST ALT Alkaline Phosphatase Troponin I High Sens B-Natriuretic Peptide 619 H Total Protein Albumin Globulin Albumin/Globulin Ratio Urine Color Urine Appearance Urine pH Ur Specific Zullinger Urine Protein Urine Glucose (UA) Urine Ketones Urine Blood Urine Nitrite Urine Bilirubin Urine Urobilinogen Ur Leukocyte Esterase Urine WBC (Auto) Urine RBC (Auto) U Hyaline Cast (Auto) U Epithel Cells (Auto) Urine Bacteria (Auto) Ur Random Creatinine U Random Total Protein Protein/Creatinin Ratio Lyme Disease IgG Ab Lyme Disease IgM Ab SARS-CoV-2, RNA, NAAT 02/21/22 02/21/22 02/21/22 14:43 14:43 14:43 WBC RBC Hgb POC Hgb Hct POC Hct MCV MCH MCHC RDW Std Deviation RDW Coeff of Juanita Plt Count MPV Immature Gran % (Auto) Neut % (Auto) Lymph % (Auto) Shackelford % (Auto) Eos % (Auto) Baso % (Auto) Neut # (Auto) Lymph # (Auto) Shackelford # (Auto) Eos # (Auto) Baso # (Auto) Immature Gran # (Auto) PT 11.4 INR 1.1 POC Sodium Sodium 133 L POC Potassium Potassium 4.8 POC Chloride Chloride 97 L Carbon Dioxide 30 POC Total CO2 Anion Gap 6 POC Anion Gap POC BUN BUN 42 H Creatinine 1.25 H POC Creatinine Est Cr Clr Drug Dosing 31.4 Est GFR ( Amer) 46.1 Est GFR (Non-Af Amer) 39.7 BUN/Creatinine Ratio 33.6 H Glucose 135 H POC Glucose POC Glucose (other) Estimat Average Glucose Hemoglobin A1c Calcium 9.6 POC Ioniz Calcium Anastasiia Magnesium 1.9 Total Bilirubin 0.3 AST 31 ALT 37 Alkaline Phosphatase 63 Troponin I High Sens 89.8 H* B-Natriuretic Peptide Total Protein 6.8 Albumin 4.2 Globulin 2.6 Albumin/Globulin Ratio 1.6 Urine Color Urine Appearance Urine pH Ur Specific Zullinger Urine Protein Urine Glucose (UA) Urine Ketones Urine Blood Urine Nitrite Urine Bilirubin Urine Urobilinogen Ur Leukocyte Esterase Urine WBC (Auto) Urine RBC (Auto) U Hyaline Cast (Auto) U Epithel Cells (Auto) Urine Bacteria (Auto) Ur Random Creatinine U Random Total Protein Protein/Creatinin Ratio Lyme Disease IgG Ab Negative Lyme Disease IgM Ab Negative SARS-CoV-2, RNA, NAAT 02/21/22 02/21/22 02/21/22 15:20 16:51 20:07 WBC RBC Hgb POC Hgb Hct POC Hct MCV MCH MCHC RDW Std Deviation RDW Coeff of Juanita Plt Count MPV Immature Gran % (Auto) Neut % (Auto) Lymph % (Auto) Shackelford % (Auto) Eos % (Auto) Baso % (Auto) Neut # (Auto) Lymph # (Auto) Shackelford # (Auto) Eos # (Auto) Baso # (Auto) Immature Gran # (Auto) PT INR POC Sodium Sodium POC Potassium Potassium POC Chloride Chloride Carbon Dioxide POC Total CO2 Anion Gap POC Anion Gap POC BUN BUN Creatinine POC Creatinine Est Cr Clr Drug Dosing Est GFR ( Amer) Est GFR (Non-Af Amer) BUN/Creatinine Ratio Glucose POC Glucose 204 H POC Glucose (other) Estimat Average Glucose Hemoglobin A1c Calcium POC Ioniz Calcium Anastasiia Magnesium Total Bilirubin AST ALT Alkaline Phosphatase Troponin I High Sens 102.5 H* B-Natriuretic Peptide Total Protein Albumin Globulin Albumin/Globulin Ratio Urine Color Dark Yellow Urine Appearance Clear Urine pH 5.5 Ur Specific Zullinger 1.015 Urine Protein 2+ H Urine Glucose (UA) Negative Urine Ketones Negative Urine Blood Negative Urine Nitrite Negative Urine Bilirubin Negative Urine Urobilinogen Negative Ur Leukocyte Esterase Negative Urine WBC (Auto) 1-5 Urine RBC (Auto) 0-4 U Hyaline Cast (Auto) 0 U Epithel Cells (Auto) 5-10 H Urine Bacteria (Auto) Negative Ur Random Creatinine U Random Total Protein Protein/Creatinin Ratio Lyme Disease IgG Ab Lyme Disease IgM Ab SARS-CoV-2, RNA, NAAT 02/21/22 02/22/22 02/22/22 Unknown 05:42 05:42 WBC 5.52 RBC 3.73 L Hgb 10.2 L POC Hgb Hct 31.5 L POC Hct MCV 84.5 MCH 27.3 MCHC 32.4 RDW Std Deviation 50.5 H RDW Coeff of Juanita 16.5 H Plt Count 230 MPV 10.8 H Immature Gran % (Auto) 0.2 Neut % (Auto) 62.2 Lymph % (Auto) 24.5 Shackelford % (Auto) 10.3 Eos % (Auto) 2.4 Baso % (Auto) 0.4 Neut # (Auto) 3.44 Lymph # (Auto) 1.35 Shackelford # (Auto) 0.57 Eos # (Auto) 0.13 Baso # (Auto) 0.02 Immature Gran # (Auto) 0.01 PT INR POC Sodium Sodium 137 POC Potassium Potassium 4.2 POC Chloride Chloride 100 Carbon Dioxide 32 POC Total CO2 Anion Gap 5 POC Anion Gap POC BUN BUN 50 H Creatinine 1.39 H POC Creatinine Est Cr Clr Drug Dosing 27.4 Est GFR ( Amer) 40.5 Est GFR (Non-Af Amer) 35.0 BUN/Creatinine Ratio 36.0 H Glucose 85 POC Glucose POC Glucose (other) Estimat Average Glucose Hemoglobin A1c Calcium 9.1 POC Ioniz Calcium Anastasiia Magnesium Total Bilirubin AST ALT Alkaline Phosphatase Troponin I High Sens B-Natriuretic Peptide Total Protein Albumin Globulin Albumin/Globulin Ratio Urine Color Urine Appearance Urine pH Ur Specific Zullinger Urine Protein Urine Glucose (UA) Urine Ketones Urine Blood Urine Nitrite Urine Bilirubin Urine Urobilinogen Ur Leukocyte Esterase Urine WBC (Auto) Urine RBC (Auto) U Hyaline Cast (Auto) U Epithel Cells (Auto) Urine Bacteria (Auto) Ur Random Creatinine U Random Total Protein Protein/Creatinin Ratio Lyme Disease IgG Ab Lyme Disease IgM Ab SARS-CoV-2, RNA, NAAT NEGATIVE 02/22/22 02/22/22 02/22/22 05:42 07:21 07:40 WBC RBC Hgb POC Hgb Hct POC Hct MCV MCH MCHC RDW Std Deviation RDW Coeff of Juanita Plt Count MPV Immature Gran % (Auto) Neut % (Auto) Lymph % (Auto) Shackelford % (Auto) Eos % (Auto) Baso % (Auto) Neut # (Auto) Lymph # (Auto) Shackelford # (Auto) Eos # (Auto) Baso # (Auto) Immature Gran # (Auto) PT INR POC Sodium Sodium POC Potassium Potassium POC Chloride Chloride Carbon Dioxide POC Total CO2 Anion Gap POC Anion Gap POC BUN BUN Creatinine POC Creatinine Est Cr Clr Drug Dosing Est GFR ( Amer) Est GFR (Non-Af Amer) BUN/Creatinine Ratio Glucose POC Glucose 91 POC Glucose (other) Estimat Average Glucose 111 Hemoglobin A1c 5.5 Calcium POC Ioniz Calcium Anastasiia Magnesium Total Bilirubin AST ALT Alkaline Phosphatase Troponin I High Sens B-Natriuretic Peptide Total Protein Albumin Globulin Albumin/Globulin Ratio Urine Color Urine Appearance Urine pH Ur Specific Zullinger Urine Protein Urine Glucose (UA) Urine Ketones Urine Blood Urine Nitrite Urine Bilirubin Urine Urobilinogen Ur Leukocyte Esterase Urine WBC (Auto) Urine RBC (Auto) U Hyaline Cast (Auto) U Epithel Cells (Auto) Urine Bacteria (Auto) Ur Random Creatinine 61.5 U Random Total Protein 56.8 H Protein/Creatinin Ratio 0.9 H Lyme Disease IgG Ab Lyme Disease IgM Ab SARS-CoV-2, RNA, NAAT 02/22/22 12:18 WBC RBC Hgb POC Hgb Hct POC Hct MCV MCH MCHC RDW Std Deviation RDW Coeff of Juanita Plt Count MPV Immature Gran % (Auto) Neut % (Auto) Lymph % (Auto) Shackelford % (Auto) Eos % (Auto) Baso % (Auto) Neut # (Auto) Lymph # (Auto) Shackelford # (Auto) Eos # (Auto) Baso # (Auto) Immature Gran # (Auto) PT INR POC Sodium Sodium POC Potassium Potassium POC Chloride Chloride Carbon Dioxide POC Total CO2 Anion Gap POC Anion Gap POC BUN BUN Creatinine POC Creatinine Est Cr Clr Drug Dosing Est GFR ( Amer) Est GFR (Non-Af Amer) BUN/Creatinine Ratio Glucose POC Glucose 113 H POC Glucose (other) Estimat Average Glucose Hemoglobin A1c Calcium POC Ioniz Calcium Anastasiia Magnesium Total Bilirubin AST ALT Alkaline Phosphatase Troponin I High Sens B-Natriuretic Peptide Total Protein Albumin Globulin Albumin/Globulin Ratio Urine Color Urine Appearance Urine pH Ur Specific Zullinger Urine Protein Urine Glucose (UA) Urine Ketones Urine Blood Urine Nitrite Urine Bilirubin Urine Urobilinogen Ur Leukocyte Esterase Urine WBC (Auto) Urine RBC (Auto) U Hyaline Cast (Auto) U Epithel Cells (Auto) Urine Bacteria (Auto) Ur Random Creatinine U Random Total Protein Protein/Creatinin Ratio Lyme Disease IgG Ab Lyme Disease IgM Ab SARS-CoV-2, RNA, NAAT Diagnostic Findings Echo - normal EF, mild MR, grade 2 diastolic dysfunction PG Care Time/CCT Total # of Minutes Spent Total Time Spent with Patient: Total time spent is greater than 50% in coordination of care (as documented) at patient's floor/unit and/or counseling patient: Coding Level of Care Code 97706 Subseq Hosp Care Lvl 2 Diagnoses Acute on chronic heart failure with preserved ejection fraction I50.33 Elevated troponin R77.8 Second degree Mobitz II AV block I44.1 Pleural effusion J90 Hypertension I10 Hypertension type: essential hypertension Dyslipidemia E78.5 Diabetes mellitus, type II E11.9 Carotid artery stenosis I65.23 Laterality: bilateral Chronic kidney disease, stage 3 (moderate) N18.30 Chronic kidney disease stage 3 subtype: unspecified whether 3a or 3b Anemia D64.9 Severe recurrent major depression with psychotic features F33.3 (1) Carotid artery stenosis Laterality: bilateral Qualified Code(s): I65.23 - Occlusion and stenosis of bilateral carotid arteries (2) Chronic kidney disease, stage 3 (moderate) Chronic kidney disease stage 3 subtype: unspecified whether 3a or 3b Qualified Code(s): N18.30 - Chronic kidney disease, stage 3 unspecified (3) Hypertension Hypertension type: essential hypertension Qualified Code(s): I10 - Essential (primary) hypertension
--- NOTE | 2022-02-22 14:46 | Cardiology Consultation ---
Date of Consultation February 22, 2022 Assessment & Plan (1) Second degree atrioventricular block by electrocardiogram: (2) Acute on chronic heart failure with preserved ejection fraction: (3) Elevated troponin: (4) Hypertension: 1. Second-degree AV block: She is in 2-1 AV block, this may be exacerbated by beta-blockade although it does suggest that she has underlying conduction disease since she is on a relatively low dose of metoprolol and is more than 24 hours since she has had a dose and she remains in 2-1 AV block. I cannot tell if it is Mobitz 1 (AV alcides) or Mobitz 2 (possibly His-Purkinje) since it is 2-1. She likely she will need a pacemaker at some point, now more than 24 hours after her last dose of beta-blockade it suggest that she has significant AV conduction disease and it may be reasonable to consider pacemaker implantation now. Alternatively we could wait to see whether this resolves with further metabolism of the beta-elias. I discussed this with the patient's daughter Siobhan Alfaro by phone, and she also discussed it with her sister in [place] who I also talked to subsequently by phone. Both would like us to wait to see whether this resolves with holding the beta-elias. I have tentatively scheduled her for pacemaker implantation on the afternoon of February 26, 2022, depending on whether she regains conduction or not. 2. Congestive heart failure: She clearly has evidence of fluid overload, likely it is due to decreased renal perfusion from bradycardia. It is diastolic and she has normal left ventricular systolic function. Agree with diuresis. 3. Elevated troponin: She does have a somewhat elevated troponin however it is not very high, there is no evidence that this is an ischemic event and I would not pursue further evaluation. 4. Hypertension: She has a wide pulse pressure and an elevated systolic blood pressure, both of these are consistent with bradycardia and decreased vascular compliance. It will be difficult to bring her systolic to normal but there may be some rebound from holding her beta-elias. History of Present Illness Reason for Consultation: Second-degree AV block Attending Physician: Erik Bailey History of Present Illness This is an 81-year-old woman who has a history of dyslipidemia, hypertension, diabetes mellitus, chronic kidney disease, cerebrovascular disease and AV conduction disease. In December 2020 she presented with 2-1 AV block however was on metoprolol succinate 50 mg daily which was held. Her AV block did resolve. Echocardiography at that time on January 22, 2021 showed normal left ventricular systolic function with mild concentric left ventricular hypertrophy. She did have diastolic congestive heart failure and was seen several times in heart failure clinic. She presents with worsening shortness of breath of several days duration. It sounds as though she may have had some dietary indiscretion and some weight gain including leg swelling, however she was also noted to have a heart rate in the 30s to 40s. As recently as January 01, 2022 her heart rate was 60 bpm. In the emergency room on February 21, 2022 at 1425 her electrocardiogram showed sinus rhythm with 2-1 AV block and a ventricular rate of 44 bpm. She did have a right bundle branch block pattern. Her beta-elias (metoprolol succinate 50 mg daily) was held, therefore the last dose she had was on the morning of February 21, 2022. An echocardiogram done on February 22, 2022 shows normal left ventricular systolic function with mild concentric left ventricular hypertrophy and mild mitral regurgitation. At the time of my evaluation this morning she was comfortable, she had no specific cardiac complaints. She denies shortness of breath, lightheadedness or dizziness. She did admit to dyspnea on exertion but has not been active in the hospital. Allergies Allergy/AdvReac Type Severity Reaction Status Date / Time bacitracin Allergy Unknown UNKNOWN Verified 01/01/22 14:06 neomycin Allergy Unknown Unknown Verified 02/21/22 15:52 [From Neosporin ([id number])] polymyxin B Allergy Unknown UNKNOWN Verified 01/01/22 14:06 adhesive AdvReac Mild RED AND Verified 01/01/22 14:06 ITCHY Bandaid Allergy Mild red and Uncoded 01/01/22 14:06 itchy Home Medications Medication Instructions Recorded Confirmed Type lancets 30 gauge (VerdiemTouch Delica #25 ea 05/04/19 01/01/22 History Lancets) cholecalciferol (vitamin D3) 50 2,000 units PO DAILY tab 06/21/19 02/21/22 History mcg (2,000 unit) tablet albuterol sulfate 90 mcg/actuation 2 puffs INH Q6H PRN 09/17/19 02/21/22 History aerosol inhaler (Ventolin HFA) mecobalamin (vitamin B12) 5,000 2,500 mcg PO DAILY tab 03/27/21 02/21/22 History mcg disintegrating tablet vitamin E (dl, acetate) 180 mg 45 mg PO DAILY 03/27/21 02/21/22 History (400 unit) capsule metformin 500 mg tablet 500 mg PO BID #180 tab 05/07/21 02/21/22 Rx mirtazapine 15 mg tablet 15 mg PO HS 07/03/21 02/21/22 History olanzapine 10 mg tablet (Zyprexa) 10 mg PO HS tab 07/03/21 02/21/22 History venlafaxine 150 mg 300 mg PO QAM cap 07/03/21 02/21/22 History capsule,extended release 24 hr clopidogrel 75 mg tablet 75 mg PO DAILY #30 tab 07/06/21 02/21/22 Rx methylphenidate HCl 10 mg tablet 10 mg PO TID tab 08/15/21 02/21/22 History (Ritalin) olanzapine 2.5 mg tablet 2.5 mg PO HS 01/01/22 02/21/22 History OneTouch Ultra Test (blood sugar #100 ea NS 01/03/22 Rx diagnostic) metoprolol succinate 50 mg 50 mg PO DAILY #90 tab 01/11/22 02/21/22 Rx tablet,extended release 24 hr amlodipine 10 mg tablet 10 mg PO DAILY #90 tab 01/24/22 02/21/22 Rx lisinopril 40 mg tablet 40 mg PO DAILY #90 tab 01/24/22 02/21/22 Rx furosemide 40 mg tablet 40 mg PO DAILY PRN #30 tab 02/20/22 02/21/22 Rx atorvastatin 40 mg tablet 40 mg PO HS 02/21/22 02/21/22 History Patient History Medical History Anemia Arthritis Carotid artery stenosis Cerumen impaction Chronic kidney disease, stage 3 (moderate) Depression Diabetes mellitus, type II Diabetic retinopathy, nonproliferative Dyslipidemia ETD (eustachian tube dysfunction) History of skin cancer Melanoma Mixed conductive and sensorineural hearing loss of right ear with restricted hearing of left ear No family history of adverse response to anesthesia Obesity, morbid, BMI 40.0-49.9 Pleural effusion Sensorineural hearing loss of both 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) Trauma of upper extremity Vitamin D deficiency Surgical History History of cataract surgery History of dilatation and curettage History of ear surgery approx 1984 Hx of tonsillectomy Family History Family/Other Family history of coronary arteriosclerosis Depression Mother Cardiovascular disease Diabetes Other Family history of bleeding disorder No family history of adverse response to anesthesia Social History Smoking Status: Never smoker Tobacco Type: Cigarettes packs per day: 1; Years Smoked: 20; Hx Alcohol Use: No Hx Substance Use: No Preferred Language: Gambian Communication Ability: Effective Hearing Ability: Hard of Hearing Beer Cooler Required: No Beliefs That Will Affect Care: None marital status: / Current Living Situation: Family Current Living Situation Comment: with daughter current occupational status: retired How many Children do You have: 2 Other Information That Helps Us Care for You: No Feels Safe at Home: Yes caffeine: Yes during the past year weight has: decreased > 10 lbs Do you think of yourself as: straight/heterosexual Gender Identity: Female Assistive Devices: None Review of Systems Review of Systems: A review of systems was performed and is notable as in the HPI. Physical Exam Physical Exam: Constitutional: Alert, cooperative and in no distress. She is resting in bed. HEENT: Unremarkable Neck: No jugular venous distention, carotid pulses are slow but equal bilaterally without bruits. Pulmonary: Clear to auscultation bilaterally. Cardiac: Regular slow rhythm with no murmur, gallop or rub. Abdomen: Soft, nontender with normal bowel sounds. Extremities: +2 bilateral pretibial edema. Distal pulses intact. Neurologic: No focal findings. Gait was not tested. Skin: No rash, ecchymoses or petechiae. Results & Data ([facility]) Vital Signs (Past 12 Hours) Vital Signs Temp Pulse Resp BP BP Pulse Ox 02/22/22 12:24 36.5 C 40 L 19 172/52 H 96 02/22/22 07:28 36.5 C 41 L 18 179/50 H 92 02/22/22 03:53 36.3 C L 33 L 20 159/98 H 96 Laboratory Results Cardiac Enzymes 05/02/21/22 02/21/22 Range/Units 14:37 14:43 16:51 AST 31 (13-39) U/L Troponin I High Sens 89.8 H* 102.5 H* (0-14) pg/ml B-Natriuretic Peptide 619 H (0-100) pg/ml Coagulation 02/21/22 02/21/22 Range/Units 14:37 14:43 PT 11.4 (9.0-12.0) Seconds B-Natriuretic Peptide 619 H (0-100) pg/ml CBC 02/21/22 02/22/22 Range/Units 14:43 05:42 WBC 6.70 5.52 (4.8-10.8) K/uL RBC 4.00 L 3.73 L (4.2-5.4) M/uL Hgb 11.1 L 10.2 L (12.0-16.0) g/dL Hct 34.5 L 31.5 L (37-47) % Plt Count 266 230 (130-400) K/uL Neut # (Auto) 5.12 3.44 (1.4-6.5) K/uL Lymph # (Auto) 1.01 L 1.35 (1.2-3.4) K/uL Warrick # (Auto) 0.46 0.57 (0.11-0.59) K/uL Eos # (Auto) 0.07 0.13 (0-0.5) K/uL Baso # (Auto) 0.02 0.02 (0-0.2) K/uL Comprehensive Metabolic Panel 02/21/22 02/22/22 Range/Units 14:43 05:42 Sodium 133 L 137 (136-145) mmol/L Potassium 4.8 4.2 (3.5-5.1) mmol/L Chloride 97 L 100 (98-107) mmol/L Carbon Dioxide 30 32 (21-32) mmol/L BUN 42 H 50 H (6-23) mg/dl Creatinine 1.25 H 1.39 H (0.6-1.2) mg/dl Glucose 135 H 85 (70-99(Fasting)) mg/dl Calcium 9.6 9.1 (8.5-10.1) mg/dl AST 31 (13-39) U/L ALT 37 (7-52) U/L Alkaline Phosphatase 63 (34-104) U/L Total Protein 6.8 (6.0-8.3) gm/dl Albumin 4.2 (3.4-5.0) gm/dl Intake and Output 02/21/22 02/22/22 02/22/22 22:59 06:59 14:59 Intake Total 200 / 200 0 / 200 Output Total 1999 Balance 200 / 200 0 / 200 -1999 Intake: Oral 200 / 200 0 / 200 Output: Urine 1999 Other: Other Intake Source NPO # Unmeasured Voids 1 Weight 77 kg 73 kg 73 kg Weight Measurement Method Standing Scale Built in [facility] Patient Weight 02/23/22 06:59 Weight 73 kg Diagnostic Findings Telemetry: She has been in 2-1 AV block since presentation, ventricular heart rate averaging around 40 bpm. PG Care Time/CCT Total # of Minutes Spent Total Time Spent with Patient: Total time spent is greater than 50% in coordination of care (as documented) at patient's floor/unit and/or counseling patient: Coding Level of Care Code 91927 Initial Inpt Care Lvl 3 Diagnoses Second degree atrioventricular block by electrocardiogram I44.1 Acute on chronic heart failure with preserved ejection fraction I50.33 Elevated troponin R77.8 Hypertension I10 Hypertension type: essential hypertension (1) Hypertension Hypertension type: essential hypertension Qualified Code(s): I10 - Essential (primary) hypertension
[2022-02-22] MEDS: ATORVASTATIN 40 MG TAB PO SCH (20:07)
[2022-02-22] MEDS: MIRTAZAPINE TAB 15 MG TAB PO SCH (20:07)
[2022-02-22] MEDS: OLANZapine 10 MG TAB PO SCH (20:07)
[2022-02-22] MEDS: OLANZAPINE 2.5 MG TAB PO SCH (20:08)
[2022-02-23] MEDS: INSULIN ASPART PER UNIT SC SCH (07:47)
[2022-02-23] MEDS: CLOPIDOGREL BISULFATE 75 MG TAB PO SCH (08:22)
[2022-02-23] MEDS: TOCOPHERYL, DL-ALPHA 400 UNITS 180 MG CAP PO SCH (08:22)
[2022-02-23] MEDS: amLODIPine BESYLATE 5 MG TAB PO SCH (08:22)
[2022-02-23] MEDS: CYANOCOBALAMIN (B-12) 2,500 MCG TABLET SL SCH (08:23)
[2022-02-23] MEDS: CHOLECALCIFEROL 1,000 UNITS 25 MCG TAB PO SCH (08:23)
[2022-02-23] MEDS: VENLAFAXINE HCL XR 150 MG CAPXR PO SCH (08:23)
[2022-02-23] MEDS: METHYLPHENIDATE HCL 10 MG TABLET PO SCH ×3 (08:29→16:04)
[2022-02-23] MEDS: FUROSEMIDE 40 MG/4 ML VIAL IV SCH ×2 (08:31→17:21)
[2022-02-23 09:40] LABS: BUN Creatinine Ratio 35.2 (10-20); Calcium 8.8 mg/dl (8.5-10.1); Creatinine Clr Calc Pharmacy 26.1 ml/min; Est GFR (African American) 38.5 ml/min; Est GFR (Non-African American) 33.2 ml/min; Magnesium 2.1 mg/dl (1.7-2.4); Potassium 4.3 mmol/L (3.5-5.1)
--- NOTE | 2022-02-23 11:35 | Cardiology Progress Note ---
Date of Service February 23, 2022 Assessment & Plan (1) Second degree atrioventricular block by electrocardiogram: (2) Acute on chronic heart failure with preserved ejection fraction: (3) Hypertension: (4) Elevated troponin: Plan: Patient remains markedly bradycardic despite being off low-dose metoprolol for several days now. Given prior symptoms and mild congestive heart failure, she would benefit from pacemaker implantation. This is tentatively scheduled for afternoon of 02/26/2022. Since she is asymptomatic at rest, no indication for urgent pacemaker placement. She appears euvolemic, creatinine is increasing, could decrease her IV diuretic to furosemide 40 mg once daily rather than twice daily. Blood pressure moderately elevated, but would allow permissive hypertension in the near term given her bradycardia. I did leave a voice message with her daughter Siobhan as well as my cell number to update her. Will continue to follow. Admission and Anticipated Discharge Date Admission Date: February 21, 2022 Subjective Patient feels well this morning, no dyspnea, chest discomfort, lightheadedness, or palpitations. She has been sitting quietly, she does walk to the bathroom and has not felt lightheaded. Telemetry shows sinus rhythm with 2-1 AV block, rate is consistently 45 bpm. Physical Exam Physical Exam: No distress. BP moderately hypertensive. Pulse 45 bpm and regular. Skin: no ecchymoses or generalized lesions. HEENT: unremarkable. Neck: Jugular venous pulse at the clavicle at 90 degrees, no carotid bruits. Lungs: clear. Cardiac: regular/bradycardic rhythm, intact aortic closure sound, 2/6 systolic ejection murmur right upper sternal border which is nonradiating, 2/6 apical holosystolic murmur, no diastolic murmur or gallop. Abdomen: benign. Extremities: no edema, pulses intact. Neurologic: normal affect, nonfocal. Results & Data ([facility]) Vital Signs (Past 12 Hours) Vital Signs Temp Pulse Pulse Resp BP BP Pulse Ox 02/23/22 07:44 98.1 F 44 L 18 179/64 H 92 02/23/22 07:14 46 L 02/23/22 05:40 180/61 H 02/23/22 04:31 98.1 F 42 L 16 194/49 H 92 02/22/22 23:52 98.1 F 39 L 18 160/52 H 94 Laboratory Results Normal electrolytes, BUN 51, creatinine 1.45 (1.39 yesterday) Diagnostic Findings Echocardiogram today showed EF 60 to 65% with mild mitral regurgitation. Compared to 2000 study, no significant change. PG Care Time/CCT Total # of Minutes Spent Total Time Spent with Patient: Total time spent is greater than 50% in coordination of care (as documented) at patient's floor/unit and/or counseling patient: Coding Level of Care Code 13676 Subseq Hosp Care Lvl 3 Diagnoses Second degree atrioventricular block by electrocardiogram I44.1 Acute on chronic heart failure with preserved ejection fraction I50.33 Hypertension I10 Hypertension type: essential hypertension Elevated troponin R77.8 (1) Hypertension Hypertension type: essential hypertension Qualified Code(s): I10 - Essential (primary) hypertension
[2022-02-23] MEDS: ACETAMINOPHEN 500 MG TAB PO SCH ×2 (18:34→20:09)
[2022-02-23] MEDS: ATORVASTATIN 40 MG TAB PO SCH (20:10)
[2022-02-23] MEDS: MIRTAZAPINE TAB 15 MG TAB PO SCH (20:10)
[2022-02-23] MEDS: OLANZapine 10 MG TAB PO SCH (20:10)
[2022-02-23] MEDS: OLANZAPINE 2.5 MG TAB PO SCH (20:10)
--- NOTE | 2022-02-23 21:41 | Hospitalist Progress Note ---
Date of Service February 23, 2022 Assessment & Plan (1) Acute on chronic heart failure with preserved ejection fraction: Plan: Heavy concern that high-degree AV block and bradycardia has led to decompensated diastolic CHF. [facility] Cardiology addressing AV block (see below). Beta elias on hold due to #2. Has lost about 10 pounds of fluid since admission. Agree with Dr Lopez's recommendation to lower lasix from BID to qdaily dosing. Repeat BMP am. Fluid restrict to 1500cc/day. Daily weights. (2) Second degree Mobitz II AV block: Plan: Although metoprolol succinate could be contributing to bradycardia we are 48+ hours out from her last dose and she remains with 2:1 block. This would argue she has intrinsic conduction disease and needs permanent pacemaker placement. Dr Weinstein from has seen; tentatively patient is on schedule for pacer placement on 02/26. Continue telemetry. Hold metoprolol. Lyme negative. TSH wnl. (3) Elevated troponin: Plan: 2nd to myocardial demand ischemia in setting of #1 above. No evidence of ACS. Echo without WMA. Left arm symptoms likely from cervical spine disease. (4) Pleural effusion: Plan: Cont IV lasix. Would not pursue thoracentesis at this time. (5) Hypertension: Plan: Continue amlodipine. Hold lisinopril. Hold metoprolol xl. Allowingpermissiveness in light of #2 above. (6) Dyslipidemia: Plan: Continue atorvastatin 40 mg. (7) Diabetes mellitus, type II: Plan: HbA1C 5.5% - not even in pre-DM range. BSGs here have been excellent. Can stop BSG checks. (8) Carotid artery stenosis: Plan: Noted. Continue aspirin and Plavix. (9) Chronic kidney disease, stage 3 (moderate): Plan: Chronic, stable. Follows with Dr. Lee. Mild rise in Cr overnight likely from AV block with hypoperfusion as well as diuresis. Daily BMP. (10) Anemia: Plan: H/H mildly low but stable. (11) Severe recurrent major depression with psychotic features: Plan: Follows with Dr. Rivero for ongoing management as outpatient. Cont Zyprexa, Remeron, methylphenidate, and venlafaxine. Plan: daughter Siobhan updated at bedside today DVT proph - heparin 5000 TID PT, OT evals needed; patient not moving much since admission; encouraged her to sit in chair, etc Admission and Anticipated Discharge Date Admission Date: February 21, 2022 Subjective tele remains 2:1 AV block (mobitz 2); no 3rd degree block pt "feels ok" denies any orthpnea or dyspnea at rest still with [place] she complains of mild neck pain, mild left scapular pain, and "an ache" in the left upper arm present 1-2 days constant no chest pain Review of Systems Review of Systems: GI - feels constipated although she had a BM yesterday neuro - no numbness of left arm/hand; no motor weakness CV - no cp pulm - no cough Physical Exam Physical Exam: gen - NAD, pleasant neck - no JVD neck - mild tenderness left paraspinal region mouth - MMM heart - bradycardic, s1 s2, no murmur lungs - decreased BS bases, no rales, no wheeze; no increased work of breathing abd - soft NT ND BS+ ext - no edema b/l, pulses 2+ b/l psych - a/o x 3 musculo - no deformity L should or L upper arm; full ROM at the L shoulder chest - no pain to palpation Results & Data Results & Data ([facility]) Vital Signs (Past 12 Hours) Vital Signs Temp Pulse Pulse Resp BP Pulse Ox 02/23/22 19:39 36.5 C 43 L 18 186/61 H 96 02/23/22 16:22 36.6 C 43 L 16 184/67 H 95 02/23/22 15:05 43 L 02/23/22 12:09 36.6 C 73 18 172/56 H 95 Laboratory Results Laboratory Results - last 24 hr 02/23/22 02/23/22 08:56 08:56 Sodium 136 Potassium 4.3 Chloride 98 Carbon Dioxide 31 Anion Gap 7 BUN 51 H Creatinine 1.45 H Est Cr Clr Drug Dosing 26.1 Est GFR ( Amer) 38.5 Est GFR (Non-Af Amer) 33.2 BUN/Creatinine Ratio 35.2 H Glucose 233 H Calcium 8.8 Magnesium 2.1 TSH 3.510 PG Care Time/CCT Total # of Minutes Spent Total Time Spent with Patient: Total time spent is greater than 50% in coordination of care (as documented) at patient's floor/unit and/or counseling patient: Coding Level of Care Code 55067 Subseq Hosp Care Lvl 2 Diagnoses Acute on chronic heart failure with preserved ejection fraction I50.33 Second degree Mobitz II AV block I44.1 Elevated troponin R77.8 Pleural effusion J90 Hypertension I10 Hypertension type: essential hypertension Dyslipidemia E78.5 Diabetes mellitus, type II E11.9 Carotid artery stenosis I65.23 Laterality: bilateral Chronic kidney disease, stage 3 (moderate) N18.30 Chronic kidney disease stage 3 subtype: unspecified whether 3a or 3b Anemia D64.9 Severe recurrent major depression with psychotic features F33.3 (1) Carotid artery stenosis Laterality: bilateral Qualified Code(s): I65.23 - Occlusion and stenosis of bilateral carotid arteries (2) Chronic kidney disease, stage 3 (moderate) Chronic kidney disease stage 3 subtype: unspecified whether 3a or 3b Qualified Code(s): N18.30 - Chronic kidney disease, stage 3 unspecified (3) Hypertension Hypertension type: essential hypertension Qualified Code(s): I10 - Essential (primary) hypertension
[2022-02-24] MEDS: METHYLPHENIDATE HCL 10 MG TABLET PO SCH ×3 (08:43→15:51)
[2022-02-24] MEDS: VENLAFAXINE HCL XR 150 MG CAPXR PO SCH (08:43)
[2022-02-24] MEDS: TOCOPHERYL, DL-ALPHA 400 UNITS 180 MG CAP PO SCH (08:44)
[2022-02-24] MEDS: CLOPIDOGREL BISULFATE 75 MG TAB PO SCH (08:44)
[2022-02-24] MEDS: amLODIPine BESYLATE 5 MG TAB PO SCH (08:44)
[2022-02-24] MEDS: CHOLECALCIFEROL 1,000 UNITS 25 MCG TAB PO SCH (08:44)
[2022-02-24] MEDS: ACETAMINOPHEN 500 MG TAB PO SCH ×3 (08:45→21:22)
[2022-02-24] MEDS: CYANOCOBALAMIN (B-12) 2,500 MCG TABLET SL SCH (08:45)
[2022-02-24] MEDS ORDERED: bisacodyL 5 MG TABEC PO ONE (08:57)
[2022-02-24] MEDS ORDERED: FUROSEMIDE 40 MG/4 ML VIAL IV SCH (09:00)
[2022-02-24] MEDS ORDERED: POLYETHYLENE (MIRALAX) 17 GM PACK PO SCH (09:00)
[2022-02-24 09:46] LABS: BUN Creatinine Ratio 42.7 (10-20); Calcium 9.2 mg/dl (8.5-10.1); Creatinine Clr Calc Pharmacy 30.6 ml/min; Est GFR (African American) 46.5 ml/min; Est GFR (Non-African American) 40.1 ml/min
[2022-02-24] MEDS: HEPARIN SOD 5,000 UNIT/0.5 ML VIAL SQ SCH ×3 (10:17→21:21)
--- NOTE | 2022-02-24 11:44 | Cardiology Progress Note ---
Date of Service February 24, 2022 Assessment & Plan (1) Second degree atrioventricular block by electrocardiogram: (2) Acute on chronic heart failure with preserved ejection fraction: (3) Hypertension: (4) Elevated troponin: Plan: Patient remains markedly bradycardic with second-degree heart block and brief periods of complete heart block yesterday. Permanent pacemaker is tentatively scheduled for the afternoon of 02/26/2022. Since she is asymptomatic at rest, no indication for urgent pacemaker placement. She appears euvolemic, furosemide reduced from twice daily to once daily. Blood pressure moderately elevated, but would allow permissive hypertension in the near term given her bradycardia. I did speak with her daughter Siobhan yesterday, she is aware of the plan for pacemaker placement. She is stable and awaiting pacemaker placement, please contact Dr. Todd if any new clinical issues should arise tomorrow, otherwise Dr. Pryor will see the patient on Friday. Admission and Anticipated Discharge Date Admission Date: February 21, 2022 Subjective Patient feels well this morning, no chest pain, dyspnea, or subjective palpitations at rest. Telemetry overnight showed sinus rhythm with 2:1 AV block with ventricular rate 45 bpm. She did have transient episodes of complete heart block lasting for 4-8 beats with a ventricular escape rhythm at 38 bpm occurring yesterday during the day, none overnight or this morning. Physical Exam Physical Exam: No distress. BP moderately hypertensive. Pulse 45 bpm and regular. Skin: no ecchymoses or generalized lesions. HEENT: unremarkable. Neck: Jugular venous pulse at the clavicle at 90 degrees, no carotid bruits. Lungs: clear. Cardiac: regular/bradycardic rhythm, intact aortic closure sound, 2/6 systolic ejection murmur right upper sternal border which is nonradiating, 2/6 apical ho losystolic murmur, no diastolic murmur or gallop. Abdomen: benign. Extremities: no edema, pulses intact. Neurologic: normal affect, nonfocal. Results & Data ([facility]) Vital Signs (Past 12 Hours) Vital Signs Temp Pulse Pulse Resp BP BP Pulse Ox 02/24/22 07:43 97.7 F 47 L 18 184/51 H 96 02/24/22 07:13 49 L 02/24/22 03:53 97.7 F 41 L 18 162/63 H 94 Laboratory Results Normal electrolytes, urine 53, creatinine 1.24 (down from 1.45). PG Care Time/CCT Total # of Minutes Spent Total Time Spent with Patient: Total time spent is greater than 50% in coordination of care (as documented) at patient's floor/unit and/or counseling patient: Coding Level of Care Code 01189 Subseq Hosp Care Lvl 3 Diagnoses Second degree atrioventricular block by electrocardiogram I44.1 Acute on chronic heart failure with preserved ejection fraction I50.33 Hypertension I10 Hypertension type: essential hypertension Elevated troponin R77.8 (1) Hypertension Hypertension type: essential hypertension Qualified Code(s): I10 - Essential (primary) hypertension
[2022-02-24] MEDS ORDERED: hydrALAZINE HCL 20 MG/ML VIAL IV ONE (12:38)
--- NOTE | 2022-02-24 20:09 | Hospitalist Progress Note ---
Date of Service February 24, 2022 Assessment & Plan (1) Acute on chronic heart failure with preserved ejection fraction: Plan: Decompensated CHF improving. 10+ pounds of weight loss since admission. Cont IV lasix daily. BMP am. Beta elias on hold due to #2. Cont Fluid restriction at 1500cc/day. Daily weights. Likely that #2 has contributed or caused her decompensated CHF. (2) Second degree Mobitz II AV block: Plan: Despite 72+ hours of holding metoprolol succinate she continues with Mobitz type 2 AV block & even brief runs of 3rd degree AV block yesterday. This suggests she has intrinsic conduction disease and needs permanent pacemaker placement. Dr Weinstein from EP has seen; patient is on schedule for pacer placement on 02/26. Continue telemetry. Hold metoprolol. Lyme negative. TSH wnl. (3) Elevated troponin: Plan: 2nd to myocardial demand ischemia in setting of #1 above. No evidence of ACS. Echo without WMA. (4) Pleural effusion: Plan: Cont IV lasix. Would not pursue thoracentesis. (5) Hypertension: Plan: Uncontrolled, with some systolics in the 180-190 range. Start hydralazine 25mg BID. Cont amlodipine. Cont to hold HILDA & BB. (6) Dyslipidemia: Plan: Continue atorvastatin 40 mg. (7) Diabetes mellitus, type II: Plan: HbA1C 5.5% - not even in pre-DM range. BSGs were excellent; have stopped such since the readings were all normal. (8) Carotid artery stenosis: Plan: Continue aspirin and Plavix. (9) Chronic kidney disease, stage 3 (moderate): Plan: Chronic, stable. Follows with Dr. Lee. Daily BMP in the face of diuresis. (10) Anemia: Plan: H/H mildly low but stable. (11) Severe recurrent major depression with psychotic features: Plan: Follows with Dr. Rivero for ongoing management as outpatient. Cont Zyprexa, Remeron, methylphenidate, and venlafaxine. Plan: daughter Siobhan updated at bedside yesterday DVT proph - heparin 5000 TID PT, OT karli requested Admission and Anticipated Discharge Date Admission Date: February 21, 2022 Subjective tele overnight - 2:1 AV block with some periods of NSR; very brief episodes yesterday of complete heart block/ventricular escape rhythm patient feels good today [place] is improved no dizziness with walking to bathroom neck and left upper arm discomfort/ache is resolved eating well still no bowel movement Review of Systems Review of Systems: gen - no fevers cv - no chest pain, no orthopnea pulm - no cough GI - no abd pain Physical Exam Physical Exam: gen - NAD, pleasant neck - no JVD mouth - MMM heart - bradycardic, s1 s2, no murmur lungs - decreased BS bases, no rales, no wheeze abd - soft NT ND BS+ ext - no edema b/l, pulses 2+ b/l psych - a/o x 3 Results & Data Results & Data ([facility]) Vital Signs (Past 12 Hours) Vital Signs Temp Pulse Pulse Resp BP Pulse Ox 02/24/22 17:41 175/68 H 02/24/22 17:30 36.3 C L 69 18 192/73 H 98 02/24/22 16:00 73 02/24/22 12:43 168/48 H 02/24/22 12:27 36.6 C 69 16 193/70 H 99 Laboratory Results Laboratory Results - last 24 hr 02/24/22 06:19 Sodium 138 Potassium 4.0 Chloride 100 Carbon Dioxide 32 Anion Gap 6 BUN 53 H Creatinine 1.24 H Est Cr Clr Drug Dosing 30.6 Est GFR ( Amer) 46.5 Est GFR (Non-Af Amer) 40.1 BUN/Creatinine Ratio 42.7 H Glucose 107 H Calcium 9.2 PG Care Time/CCT Total # of Minutes Spent Total Time Spent with Patient: Total time spent is greater than 50% in coordination of care (as documented) at patient's floor/unit and/or counseling patient: Coding Level of Care Code 50863 Subseq Hosp Care Lvl 2 Diagnoses Acute on chronic heart failure with preserved ejection fraction I50.33 Second degree Mobitz II AV block I44.1 Elevated troponin R77.8 Pleural effusion J90 Hypertension I10 Hypertension type: essential hypertension Dyslipidemia E78.5 Diabetes mellitus, type II E11.9 Carotid artery stenosis I65.23 Laterality: bilateral Chronic kidney disease, stage 3 (moderate) N18.30 Chronic kidney disease stage 3 subtype: unspecified whether 3a or 3b Anemia D64.9 Severe recurrent major depression with psychotic features F33.3 (1) Carotid artery stenosis Laterality: bilateral Qualified Code(s): I65.23 - Occlusion and stenosis of bilateral carotid arteries (2) Chronic kidney disease, stage 3 (moderate) Chronic kidney disease stage 3 subtype: unspecified whether 3a or 3b Qualified Code(s): N18.30 - Chronic kidney disease, stage 3 unspecified (3) Hypertension Hypertension type: essential hypertension Qualified Code(s): I10 - Essential (primary) hypertension
[2022-02-24] MEDS: SENNA 8.6 MG TAB PO SCH (21:20)
[2022-02-24] MEDS: hydrALAZINE HCL 25 MG TAB PO SCH (21:21)
[2022-02-24] MEDS: POLYETHYLENE (MIRALAX) 17 GM PACK PO SCH (21:21)
[2022-02-24] MEDS: OLANZapine 10 MG TAB PO SCH (21:22)
[2022-02-24] MEDS: OLANZAPINE 2.5 MG TAB PO SCH (21:23)
[2022-02-24] MEDS: ATORVASTATIN 40 MG TAB PO SCH (21:23)
[2022-02-24] MEDS: MIRTAZAPINE TAB 15 MG TAB PO SCH (21:23)
[2022-02-25] MEDS: HEPARIN SOD 5,000 UNIT/0.5 ML VIAL SQ SCH ×3 (06:31→20:36)
[2022-02-25 06:51] LABS: BUN Creatinine Ratio 39.3 (10-20); Creatinine Clr Calc Pharmacy 26.1 ml/min; Est GFR (African American) 38.5 ml/min; Est GFR (Non-African American) 33.2 ml/min; Potassium 4.6 mmol/L (3.5-5.1)
[2022-02-25] MEDS: amLODIPine BESYLATE 5 MG TAB PO SCH (08:32)
[2022-02-25] MEDS: CLOPIDOGREL BISULFATE 75 MG TAB PO SCH (08:32)
[2022-02-25] MEDS: ACETAMINOPHEN 500 MG TAB PO SCH ×3 (08:32→20:36)
[2022-02-25] MEDS: CYANOCOBALAMIN (B-12) 2,500 MCG TABLET SL SCH (08:32)
[2022-02-25] MEDS: TOCOPHERYL, DL-ALPHA 400 UNITS 180 MG CAP PO SCH (08:32)
[2022-02-25] MEDS: CHOLECALCIFEROL 1,000 UNITS 25 MCG TAB PO SCH (08:32)
[2022-02-25] MEDS: SENNA 8.6 MG TAB PO SCH (08:32)
[2022-02-25] MEDS: VENLAFAXINE HCL XR 150 MG CAPXR PO SCH (08:32)
[2022-02-25] MEDS: POLYETHYLENE (MIRALAX) 17 GM PACK PO SCH ×2 (08:33→20:36)
[2022-02-25] MEDS: hydrALAZINE HCL 25 MG TAB PO SCH ×3 (08:33→20:36)
[2022-02-25] MEDS: METHYLPHENIDATE HCL 10 MG TABLET PO SCH ×3 (09:00→16:48)
[2022-02-25] MEDS: OLANZapine 10 MG TAB PO SCH (20:35)
[2022-02-25] MEDS: OLANZAPINE 2.5 MG TAB PO SCH (20:35)
[2022-02-25] MEDS: MIRTAZAPINE TAB 15 MG TAB PO SCH (20:36)
[2022-02-25] MEDS: ATORVASTATIN 40 MG TAB PO SCH (20:36)
--- NOTE | 2022-02-25 22:52 | Hospitalist Progress Note ---
Date of Service February 25, 2022 Assessment & Plan (1) Acute on chronic heart failure with preserved ejection fraction: Plan: Decompensated CHF improved. Likely euvolemic, and BUN with Cr are rising. 10+ pounds of weight loss since admission. HOLD any further diuresis. BMP am. Beta elias on hold due to #2. Cont Fluid restriction at 1500cc/day. Daily weights. Likely that #2 has contributed or caused her decompensated CHF. (2) Second degree Mobitz II AV block: Plan: Despite 3-4+ days of holding metoprolol succinate she continues with Mobitz type 2 AV block & even brief runs of 3rd degree AV block. Fortunately no symptoms at rest, and SBP if anything is high. Thus she has intrinsic conduction disease and needs permanent pacemaker placement. Dr Weinstein from EP has seen; patient is on schedule for pacer placement tomorrow. NPO after MN tonight. Hold heparin SC. Continue telemetry. Cont to hold metoprolol. Lyme negative. TSH wnl. (3) Elevated troponin: Plan: 2nd to myocardial demand ischemia in setting of #1 above. No evidence of ACS. Echo without WMA. (4) Pleural effusion: Plan: Repeat cxr to re-eval the effusions but would not pursue thoracentesis at this time. (5) Hypertension: Plan: Uncontrolled, with some systolics in the 180-190 range. Started hydralazine 25mg BID --> titrated to TID dosing. Cont amlodipine. Cont to hold HILDA & BB. (6) Dyslipidemia: Plan: Continue atorvastatin 40 mg. (7) Diabetes mellitus, type II: Plan: HbA1C 5.5% - not even in pre-DM range. BSGs were excellent; have stopped such since the readings were all normal. (8) Carotid artery stenosis: Plan: Continue aspirin and Plavix. (9) Chronic kidney disease, stage 3 (moderate): Plan: Chronic, stable. Follows with Dr. Lee. Daily BMP in the face of diuresis. Cr has trended up slightly thus lasix placed on hold. (10) Anemia: Plan: H/H mildly low but stable. repeat cbc am. (11) Severe recurrent major depression with psychotic features: Plan: Follows with Dr. Rivero for ongoing management as outpatient. Cont Zyprexa, Remeron, methylphenidate, and venlafaxine. Plan: daughter Siobhan updated again today DVT proph - heparin [address] on hold for pacer tomorrow PT, OT karli requested Admission and Anticipated Discharge Date Admission Date: February 21, 2022 Subjective remains largely in a 2:1 AV block (Mobitz 2) no new complaints today eating well breathing comfortably no dyspnea with transferring from bed to chair Review of Systems Review of Systems: gen - feels decent, energy ok cv - no orthopnea pulm - no cough GI - still with constipation - still no BM despite multiple meds Physical Exam Physical Exam: gen - NAD, pleasant, sitting in chair comfortably neck - no JVD mouth - MMM heart - bradycardic, s1 s2, no murmur lungs - decreased BS bases, no rales, no wheeze, no increased work of breathing abd - soft NT ND BS+ ext - no edema b/l, pulses 2+ b/l psych - a/o x 3 Results & Data Results & Data ([facility]) Vital Signs (Past 12 Hours) Vital Signs Temp Pulse Pulse Resp BP Pulse Ox Pulse Ox 02/25/22 19:57 36.4 C L 42 L 18 188/65 H 97 02/25/22 19:00 95 02/25/22 15:55 36.6 C 40 L 18 157/47 H 98 02/25/22 14:18 42 L 02/25/22 11:15 36.8 C 41 L 18 195/64 H 97 Laboratory Results Laboratory Results - last 24 hr 02/25/22 05:53 Sodium 138 Potassium 4.6 Chloride 100 Carbon Dioxide 34 H Anion Gap 4 BUN 57 H Creatinine 1.45 H Est Cr Clr Drug Dosing 26.1 Est GFR ( Amer) 38.5 Est GFR (Non-Af Amer) 33.2 BUN/Creatinine Ratio 39.3 H Glucose 102 H Calcium 9.0 PG Care Time/CCT Total # of Minutes Spent Total Time Spent with Patient: Total time spent is greater than 50% in coordination of care (as documented) at patient's floor/unit and/or counseling patient: Coding Level of Care Code 42975 Subseq Hosp Care Lvl 2 Diagnoses Acute on chronic heart failure with preserved ejection fraction I50.33 Second degree Mobitz II AV block I44.1 Elevated troponin R77.8 Pleural effusion J90 Hypertension I10 Hypertension type: essential hypertension Dyslipidemia E78.5 Diabetes mellitus, type II E11.9 Carotid artery stenosis I65.23 Laterality: bilateral Chronic kidney disease, stage 3 (moderate) N18.30 Chronic kidney disease stage 3 subtype: unspecified whether 3a or 3b Anemia D64.9 Severe recurrent major depression with psychotic features F33.3 (1) Carotid artery stenosis Laterality: bilateral Qualified Code(s): I65.23 - Occlusion and stenosis of bilateral carotid arteries (2) Chronic kidney disease, stage 3 (moderate) Chronic kidney disease stage 3 subtype: unspecified whether 3a or 3b Qualified Code(s): N18.30 - Chronic kidney disease, stage 3 unspecified (3) Hypertension Hypertension type: essential hypertension Qualified Code(s): I10 - Essential (primary) hypertension
[2022-02-26] MEDS ORDERED: ceFAZolin 330 MG/ML 1 GM VIAL IV SCH (06:00)
[2022-02-26 07:36] LABS: Hemoglobin 11.2 g/dL (12.0-16.0); Mean Corpuscular Hemoglobin 28.4 pg (25-34); Mean Corpuscular Hgb Conc 33.9 g/dL (32-36); Mean Corpuscular Volume 83.8 fL (80-100); Mean Platelet Volume 11.8 fL (7.4-10.4); Platelet Count 232 K/uL (130-400); RDW Coefficient of Variation 16.1 % (11.5-14.5); RDW Standard Deviation 49.9 fL (36.4-46.3); Red Blood Count 3.94 M/uL (4.2-5.4); White Blood Count 5.35 K/uL (4.8-10.8)
[2022-02-26 08:02] LABS: BUN Creatinine Ratio 39.8 (10-20); Calcium 9.2 mg/dl (8.5-10.1); Creatinine Clr Calc Pharmacy 23.7 ml/min; Est GFR (African American) 33.9 ml/min; Est GFR (Non-African American) 29.3 ml/min; Potassium 5.4 mmol/L (3.5-5.1)
[2022-02-26] MEDS: LACTATED RINGER'S 1,000 ML IV SCH (08:08)
[2022-02-26] MEDS: ACETAMINOPHEN 500 MG TAB PO SCH ×3 (08:10→20:57)
[2022-02-26] MEDS: hydrALAZINE HCL 25 MG TAB PO SCH ×3 (08:10→20:58)
[2022-02-26] MEDS: METHYLPHENIDATE HCL 10 MG TABLET PO SCH ×3 (08:10→16:55)
[2022-02-26] MEDS: amLODIPine BESYLATE 5 MG TAB PO SCH (08:11)
[2022-02-26] MEDS: CYANOCOBALAMIN (B-12) 2,500 MCG TABLET SL SCH (08:11)
[2022-02-26] MEDS: CHOLECALCIFEROL 1,000 UNITS 25 MCG TAB PO SCH (08:11)
[2022-02-26] MEDS: SENNA 8.6 MG TAB PO SCH (08:11)
[2022-02-26] MEDS: TOCOPHERYL, DL-ALPHA 400 UNITS 180 MG CAP PO SCH (08:11)
[2022-02-26] MEDS: VENLAFAXINE HCL XR 150 MG CAPXR PO SCH (08:11)
[2022-02-26] MEDS: CLOPIDOGREL BISULFATE 75 MG TAB PO SCH (08:12)
[2022-02-26] MEDS: POLYETHYLENE (MIRALAX) 17 GM PACK PO SCH ×2 (08:12→20:59)
[2022-02-26] MEDS ORDERED: PATIROMER CALCIUM SORBITEX 8.4 GM PACK PO STA (08:32)
[2022-02-26] MEDS ORDERED: WATER, STERILE FOR INJ 10 ML VIAL ONE (12:51)
[2022-02-26] MEDS ORDERED: LIDOCAINE 1% LOCAL 20 ML VIAL ONE (12:51)
[2022-02-26] MEDS ORDERED: VANCOMYCIN HCL 1000MG/20ML VIAL ONE (12:52)
--- NOTE | 2022-02-26 14:11 | Cardiology Progress Note ---
Date of Service February 26, 2022 Assessment & Plan (1) Second degree atrioventricular block by electrocardiogram: (2) Hypertension: (3) Diastolic congestive heart failure: (4) Kidney disease: Plan: 1. Second-degree AV block: She remains in symptomatic second-degree AV block, there is no clear reversible cause and I think we need to proceed to pacemaker implantation. 2. Hypertension: She has a wide pulse pressure and an elevated systolic blood pressure, both of these are consistent with bradycardia and decreased vascular compliance. I suspect following pacemaker implantation that these numbers will improve significantly. 3. Congestive heart failure: She had evidence of fluid overload on presentation, I suspect this is on the basis of underperfusion of her kidneys. Hopefully this will improve as well with a more appropriate heart rate. 4. Kidney disease: I believe her elevated creatinine is probably due to decreased renal perfusion which should improve with pacemaker implantation. I discussed the indications, procedure, risks and alternatives of pacemaker implantation with the patient and she understands and agrees to proceed. She provided consent. I also discussed conscious sedation and she agrees and consent obtained. I also talked to her daughter Siobhan in the waiting room prior to the procedure. Admission and Anticipated Discharge Date Admission Date: February 21, 2022 Subjective She remains in second-degree AV block with periods of what appears to be brief complete heart block. She is awake and alert and has no specific complaints while laying in bed. She is now 5 days off of metoprolol succinate and it should be completely out of her system. There are no other reversible causes for her AV block identified therefore we should proceed with pacemaker implantation. Physical Exam Physical Exam: Constitutional: Alert, cooperative and in no distress. She is resting in bed. HEENT: Unremarkable Neck: No jugular venous distention, carotid pulses are slow but equal bilaterally without bruits. Pulmonary: Clear to auscultation bilaterally. Cardiac: Regular slow rhythm with no murmur, gallop or rub. Abdomen: Soft, nontender with normal bowel sounds. Extremities: +2 bilateral pretibial edema. Distal pulses intact. Neurologic: No focal findings. Gait was not tested. Skin: No rash, ecchymoses or petechiae. Results & Data ([facility]) Vital Signs (Past 12 Hours) Vital Signs Temp Pulse Resp BP Pulse Ox 02/26/22 12:53 42 L 18 187/54 H 98 02/26/22 11:41 36.4 C L 42 L 20 175/90 H 93 02/26/22 07:36 36.8 C 44 L 18 193/49 H 93 Laboratory Results CBC 02/26/22 Range/Units 06:08 WBC 5.35 (4.8-10.8) K/uL RBC 3.94 L (4.2-5.4) M/uL Hgb 11.2 L (12.0-16.0) g/dL Hct 33.0 L (37-47) % Plt Count 232 (130-400) K/uL Comprehensive Metabolic Panel 02/26/22 Range/Units 06:08 Sodium 133 L (136-145) mmol/L Potassium 5.4 H (3.5-5.1) mmol/L Chloride 96 L (98-107) mmol/L Carbon Dioxide 31 (21-32) mmol/L BUN 64 H (6-23) mg/dl Creatinine 1.61 H (0.6-1.2) mg/dl Glucose 129 H (70-99(Fasting)) mg/dl Calcium 9.2 (8.5-10.1) mg/dl Intake and Output 02/25/22 02/26/22 02/26/22 22:59 06:59 14:59 Intake Total 0 / 1100 100 / 1100 Output Total 0 / 1 Balance 0 / 1099 100 / 1099 Intake: Oral 0 / 1100 100 / 1100 Output: Urine 0 / 0 Other: Other Intake Source NPO # Unmeasured Voids 1 Weight 73.4 kg Weight Measurement Method Built in [facility] A housing on Diagnostic Findings Telemetry: Sinus rhythm with predominantly 2-1 AV block, heart rate hovering around 40 bpm. PG Care Time/CCT Total # of Minutes Spent Total Time Spent with Patient: Total time spent is greater than 50% in coordination of care (as documented) at patient's floor/unit and/or counseling patient: Coding Level of Care Code 19281 Subseq Hosp Care Lvl 3 Diagnoses Second degree atrioventricular block by electrocardiogram I44.1 Hypertension I10 Hypertension type: essential hypertension Diastolic congestive heart failure I50.31 Heart failure chronicity: acute Kidney disease N28.9 (1) Diastolic congestive heart failure Heart failure chronicity: acute Qualified Code(s): I50.31 - Acute diastolic (congestive) heart failure (2) Hypertension Hypertension type: essential hypertension Qualified Code(s): I10 - Essential (primary) hypertension
[2022-02-26] MEDS ORDERED: fentaNYL citrate 100 MCG/2 ML VIAL ONE (14:25)
[2022-02-26] MEDS ORDERED: MIDAZOLAM HCL 5 MG/ML 1 ML VIAL ONE (14:25)
[2022-02-26] MEDS ORDERED: ceFAZolin 330 MG/ML 1 GM VIAL ONE (14:25)
--- NOTE | 2022-02-26 14:25 | Pre Anesthesia Assessment ---
Date of Service February 26, 2022 Pre Sedation Assessment Vital Signs Temp Pulse Resp BP Pulse Ox Pulse Ox 02/26/22 12:53 42 L 18 187/54 H 98 02/26/22 11:41 36.4 C L 42 L 20 175/90 H 93 02/26/22 07:36 36.8 C 44 L 18 193/49 H 93 02/25/22 23:00 36.6 C 40 L 20 157/53 H 94 02/25/22 19:57 36.4 C L 42 L 18 188/65 H 97 02/25/22 19:00 95 02/25/22 15:55 36.6 C 40 L 18 157/47 H 98 Cardiovascular RRR, no murmur, no edema + bradycardic Respiratory normal respiratory effort, lungs clear to auscultation Pre-Sedation Airway Assessment Smoking Status: Never smoker Hx Sleep Apnea: No Short, Thick Neck: No Thyromental Distance: > or= 3.5 Finger Breadths Oral Cavity: + WNL Mallampati Class: III ASA: ASA3 NPO Status Date of Last Intake of Fluids: 02/26/22 Time of Last Intake of Fluids: 08:00 Date of Last Intake of Solid Food: 02/25/22 Time of Last Intake of Solid Foods: 18:00 Procedure Planning Contraindications for Sedation: none Current Medications Reviewed: Yes Notes The planned sedation has been discussed with the patient. Informed Consent was obtained. I have identified the patient, determined the appropriateness of sedation and have assessed the patient immediately prior to the procedure. All medicine(s) and interventions are by my order.
[2022-02-26] MEDS ORDERED: MUPIROCIN 2% OINT 22 GM TUBE EXT SCH (15:00)
[2022-02-26] MEDS ORDERED: METOPROLOL TARTRATE 1 MG/ML VIAL IV ONE (15:54)
[2022-02-26] MEDS ORDERED: ACETAMINOPHEN 325 MG TAB PO PRN (16:10)
[2022-02-26] MEDS ORDERED: ACETAMINOPHEN W/CODEINE #3 1 TAB PO PRN (16:10)
--- NOTE | 2022-02-26 16:10 | Electrophysiology Report ---
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 The left prepectoral region was anesthetized with 1% lidocaine local anesthetic and left axillary venipuncture was performed by percutaneous technique and a guidewire placed through the left subclavian vein into the superior vena cava. The area was further infiltrated with 1% lidocaine local anesthetic and a 5 cm incision was made parallel to the left clavicle and 2 cm below it and carried down to the anterior pectoralis fascia. A pacemaker pocket was formed by blunt dissection anterior to the pectoralis fascia and a vancomycin-soaked sponge was placed in the pocket. An 8 [place] Medtronic lead introducer was placed over the guidewire into the left subclavian vein, the dilator and guidewire were removed and a bipolar active fixation steroid tipped atrial lead was advanced through the introducer into the superior vena cava. A guidewire was placed through the introducer and the introducer was stripped from the lead and guidewire. A 7 [place] Medtronic lead introducer was placed over the guidewire into the left subclavian vein, the dilator and guidewire were removed. The atrial lead was temporarily positioned in the right ventricle for backup pacing. A C315 His 02 septal sheath was advanced through the introducer over a guidewire and advanced into the right ventricular outflow tract. The guidewire and dilator were removed and the sheath was positioned in a mid septal location. A bipolar active fixation steroid tipped ventricular lead was advanced through the introducer and rotated to advance the screw into the septum. Pacing and sensing thresholds were evaluated in bipolar configuration and are noted on the data sheet. The septal sheath was stripped away from the lead. The atrial lead was then removed from the right ventricle and using a curved stylette the atrial lead was positioned in the region of the atrial appendage and the screw extended fixing the lead in position. Pacing and sensing thresholds were evaluated in bipolar configuration and are recorded on the implant data sheet. Once the leads were in position they were attached to the anterior pectoralis fascia using 2 sutures of 2-0 silk around each lead collar. The vancomycin soaked sponge was removed from the pocket, hemostasis was obtained, the pacemaker was attached to the leads and placed in the pocket with the leads coiled beneath it. The incision was closed with a running double subcutaneous closure of 3-0 Vicryl absorbable suture, followed by running subcuticular skin closure of 4-0 Vicryl absorbable suture. Antibiotic ointment was placed on the incision and a dressing applied. [facility] [place] Electrophysiology codes Indication for Procedure (1) High-grade atrioventricular block: Pacing Procedure 1: Pacin Insert/Replace Pacer A & V PG Moderate Sedation Codes Moderate Sedation Codes Procedure 1: Sedation/Anesthesia: 18795 Mod Sedation by the same physician;Init15 Min Child Age 5 & Up Procedure 2: Sedation/Anesthesia: 11699 Mod Sedation by the same physician; Ea [id number] Minutes
--- NOTE | 2022-02-26 16:41 | Electrocardiogram Report ---
Test Reason : Blood Pressure : / mmHG Vent. Rate : 081 BPM Atrial Rate : 081 BPM P-R Int : 216 ms QRS Dur : 154 ms QT Int : 458 ms P-R-T Axes : 073 098 -77 degrees QTc Int : 532 ms Atrial-sensed ventricular-paced rhythm with prolonged AV conduction Abnormal ECG When compared with ECG of 21-FEB-2022 14:25, Electronic ventricular pacemaker has replaced Sinus rhythm Vent. rate has increased BY 37 BPM Confirmed by Chris Lopez ([id number]) on 02/26/2022 4:41:38 PM Referred By: REFERRED SELF Confirmed By:Chris Lopez
[2022-02-26] MEDS: METOPROLOL SUCC 50MG EXT REL TAB PO SCH (17:20)
[2022-02-26] MEDS: MIRTAZAPINE TAB 15 MG TAB PO SCH (20:58)
[2022-02-26] MEDS: ATORVASTATIN 40 MG TAB PO SCH (20:58)
[2022-02-26] MEDS: OLANZapine 10 MG TAB PO SCH (20:59)
[2022-02-26] MEDS: OLANZAPINE 2.5 MG TAB PO SCH (20:59)
[2022-02-26 21:06] LABS: BUN Creatinine Ratio 34.8 (10-20); Calcium 8.9 mg/dl (8.5-10.1); Creatinine Clr Calc Pharmacy 20.4 ml/min; Est GFR (African American) 28.3 ml/min; Est GFR (Non-African American) 24.4 ml/min; Potassium 4.8 mmol/L (3.5-5.1)
[2022-02-26] MEDS ORDERED: SODIUM CHLORIDE 0.9% 1000ML 1,000 ML IV SCH (21:30)
--- NOTE | 2022-02-26 23:36 | Hospitalist Progress Note ---
Date of Service February 26, 2022 Assessment & Plan (1) Acute on chronic heart failure with preserved ejection fraction: Plan: Decompensated CHF resolved. BUN & Cr started to trend up the last 48 hours and thus IV diuresis was discontinued. 10+ pounds of weight loss since admission. Suspect that acute CHF was due to development of high-grade AV block. Cont daily weights. After pacer implantation can likely resume her beta elias but defer to cardiology. (2) Second degree Mobitz II AV block: Plan: Despite 5+ days of holding metoprolol succinate she continues with Mobitz type 2 AV block & even brief runs of 3rd degree AV block. This is clear evidence of intrinsic conduction disease. Lyme negative. TSH wnl. s/p permanent pacemaker placement today by Dr Weinstein - appreciate his assistance. CXR in am. Labs in am. Interrogation in am. Sling restrictions - left arm. Pain meds prn. (3) RAIN (acute kidney injury): Plan: Over-diuresis, recent CT contrast for CTA chest, and impaired renal perfusion from #2 likely all to blame. I repeated the BMP this evening - Cr sera further. Thus, start isotonic fluids and repeat BMP in am. (4) Hyperkalemia: Plan: 2nd to #3. Patiromer x 1. Resolved, repeat K this evening improved. (5) Elevated troponin: Plan: At time of admission. 2nd to myocardial demand ischemia in setting of #1 above. No evidence of ACS. Echo without WMA. (6) Pleural effusion: Plan: Can re-evaluate them when she has cxr tomorrow s/p pacer placement. Unlikely to need any intervention. Had thoracentesis in the distant past. (7) Hypertension: Plan: Uncontrolled, with some systolics in the 180-190 range. Started hydralazine 25mg BID --> titrated to TID dosing. Cont amlodipine. Cont to hold HILDA & BB. BPs should improve following pacer placement. Can likely resume BB post-pacer placement. (8) Dyslipidemia: Plan: Continue atorvastatin 40 mg. (9) Diabetes mellitus, type II: Plan: HbA1C 5.5% - not even in pre-DM range. BSGs were excellent earlier this admission thus BSGs were stopped. (10) Carotid artery stenosis: Plan: Continue aspirin and Plavix. (11) Chronic kidney disease, stage 3 (moderate): Plan: Chronic, stable. Follows with Dr. Lee. Now with RAIN - see above. BMP in am. (12) Anemia: Plan: H/H mildly low but stable. repeat cbc today acceptable. (13) Severe recurrent major depression with psychotic features: Plan: Follows with Dr. Rivero for ongoing management as outpatient. Cont Zyprexa, Remeron, methylphenidate, and venlafaxine. Plan: daughter Siobhan updated yesterday DVT proph - heparin 5000 TID but was on hold for pacer placement today PT, OT karli requested to determine post-d/c disposition Admission and Anticipated Discharge Date Admission Date: February 21, 2022 Subjective saw patient post-pacer placement she was resting comfortably; denied c/o pain in the left upper chest at site of implantation denied dyspnea is happy that "everything went well" prior to pacer implantation today she was in mobitz 2 all night and this am K this am was 5.4 - thus, gave patiromer x 1 this am for such Review of Systems Review of Systems: gen - feels well cv - no orthopnea pulm - no dyspnea GI - no pain; finally had a bowel movement last pm Physical Exam Physical Exam: gen - NAD, pleasant, resting in bed comfortably; sling left arm in place neck - no JVD mouth - MMM heart - RRR, s1 s2, no murmur lungs - decreased BS bases but no rales, no wheeze chest - pacer site left upper chest clean, no hematoma abd - soft NT ND BS+ ext - no edema b/l, pulses 2+ b/l psych - a/o x 3 Results & Data Results & Data ([facility]) Vital Signs (Past 12 Hours) Vital Signs Temp Pulse Pulse Resp BP BP Pulse Ox 02/26/22 19:58 36.3 C L 67 24 165/65 H 96 02/26/22 18:25 83 18 153/69 H 96 02/26/22 18:00 83 18 155/67 H 96 02/26/22 17:30 81 18 151/69 H 96 02/26/22 17:25 85 18 152/61 H 94 02/26/22 16:55 185 H 18 150/51 H 96 02/26/22 16:52 84 02/26/22 16:25 81 18 182/67 H 97 02/26/22 16:10 83 18 173/67 H 97 02/26/22 12:53 42 L 18 187/54 H 98 02/26/22 11:41 36.4 C L 42 L 20 175/90 H 93 Laboratory Results Laboratory Results - last 24 hr 02/26/22 02/26/22 02/26/22 06:08 06:08 20:18 WBC 5.35 RBC 3.94 L Hgb 11.2 L Hct 33.0 L MCV 83.8 MCH 28.4 MCHC 33.9 RDW Std Deviation 49.9 H RDW Coeff of Juanita 16.1 H Plt Count 232 MPV 11.8 H Sodium 133 L 133 L Potassium 5.4 H 4.8 Chloride 96 L 98 Carbon Dioxide 31 28 Anion Gap 6 7 BUN 64 H 65 H Creatinine 1.61 H 1.87 H Est Cr Clr Drug Dosing 23.7 20.4 Est GFR ( Amer) 33.9 28.3 Est GFR (Non-Af Amer) 29.3 24.4 BUN/Creatinine Ratio 39.8 H 34.8 H Glucose 129 H 125 H Calcium 9.2 8.9 PG Care Time/CCT Total # of Minutes Spent Total Time Spent with Patient: Total time spent is greater than 50% in coordination of care (as documented) at patient's floor/unit and/or counseling patient: Coding Level of Care Code 39118 Subseq Hosp Care Lvl 3 Diagnoses Acute on chronic heart failure with preserved ejection fraction I50.33 Second degree Mobitz II AV block I44.1 Elevated troponin R77.8 Pleural effusion J90 Hypertension I10 Hypertension type: essential hypertension Dyslipidemia E78.5 Diabetes mellitus, type II E11.9 Carotid artery stenosis I65.23 Laterality: bilateral Chronic kidney disease, stage 3 (moderate) N18.30 Chronic kidney disease stage 3 subtype: unspecified whether 3a or 3b Anemia D64.9 Severe recurrent major depression with psychotic features F33.3 RAIN (acute kidney injury) N17.9 Hyperkalemia E87.5 (1) Carotid artery stenosis Laterality: bilateral Qualified Code(s): I65.23 - Occlusion and stenosis of bilateral carotid arteries (2) Chronic kidney disease, stage 3 (moderate) Chronic kidney disease stage 3 subtype: unspecified whether 3a or 3b Qualified Code(s): N18.30 - Chronic kidney disease, stage 3 unspecified (3) Hypertension Hypertension type: essential hypertension Qualified Code(s): I10 - Essential (primary) hypertension
[2022-02-27 07:22] LABS: BUN Creatinine Ratio 38.6 (10-20); Calcium 9.1 mg/dl (8.5-10.1); Creatinine Clr Calc Pharmacy 26.1 ml/min; Est GFR (African American) 38.5 ml/min; Est GFR (Non-African American) 33.2 ml/min; Potassium 4.4 mmol/L (3.5-5.1)
[2022-02-27] MEDS: LACTATED RINGER'S 1,000 ML IV SCH (08:44)
[2022-02-27] MEDS: METOPROLOL SUCC 50MG EXT REL TAB PO SCH (08:45)
[2022-02-27] MEDS: CLOPIDOGREL BISULFATE 75 MG TAB PO SCH (08:45)
[2022-02-27] MEDS: TOCOPHERYL, DL-ALPHA 400 UNITS 180 MG CAP PO SCH (08:45)
[2022-02-27] MEDS: ACETAMINOPHEN 500 MG TAB PO SCH ×2 (08:45→14:10)
[2022-02-27] MEDS: CYANOCOBALAMIN (B-12) 2,500 MCG TABLET SL SCH (08:45)
[2022-02-27] MEDS: SENNA 8.6 MG TAB PO SCH (08:45)
[2022-02-27] MEDS: amLODIPine BESYLATE 5 MG TAB PO SCH (08:45)
[2022-02-27] MEDS: VENLAFAXINE HCL XR 150 MG CAPXR PO SCH (08:45)
[2022-02-27] MEDS: CHOLECALCIFEROL 1,000 UNITS 25 MCG TAB PO SCH (08:45)
[2022-02-27] MEDS: hydrALAZINE HCL 25 MG TAB PO SCH ×2 (08:45→14:11)
[2022-02-27] MEDS: POLYETHYLENE (MIRALAX) 17 GM PACK PO SCH (08:46)
[2022-02-27] MEDS: METHYLPHENIDATE HCL 10 MG TABLET PO SCH ×2 (08:49→12:38)
--- NOTE | 2022-02-27 08:49 | XRay Report ---
TWO VIEW CHEST CLINICAL HISTORY: Pacemaker implantation. FINDINGS: PA and lateral chest radiographs are compared to chest x-ray and chest CT dated 02/21/2022. An arm obscures the chest on the lateral view. A 2-lead cardiac pacemaker has been placed and partial ly obscures the left mid chest. Leads project over the right atrial appendage and the right ventricle . The heart is enlarged noting atherosclerotic calcification of the thoracic aorta. The pulmonary vas culature is noncongested. There are small pleural effusions, left larger than right with dependent co nsolidation. There is no pneumothorax. The skeletal structures are osteopenic. The bony thorax appear s intact. IMPRESSION: 1. A 2-lead cardiac pacemaker has been implanted as above. No pneumothorax is identified post procedu re. 2. Cardiomegaly with no radiographic evidence of congestive failure. 3. Small pleural effusions with dependent consolidation. This is similar to previous. ACT 112: Negative or not required by law. Electronically signed by: Sebastian Aguilar M.D. 02/27/2022 8:47 AM
--- NOTE | 2022-02-27 09:32 | Cardiology Progress Note ---
Date of Service February 27, 2022 Assessment & Plan (1) Status post placement of cardiac pacemaker: Plan: 1. Postop day #1 pacemaker implantation: She is doing well post pacemaker implantation yesterday. The site looks good, she feels well, the chest x-ray shows good lead position and measurements are excellent. Her creatinine is improving as hoped. From my standpoint she is stable for discharge. I did restart her beta-elias although her pressure is still elevated. I will arrange office follow-up in place discharge instructions and her discharge paperwork. Admission and Anticipated Discharge Date Admission Date: February 21, 2022 Subjective She is feeling well, she is sitting at her bedside with no cardiovascular complaints. She is not short of breath and has no chest discomfort. She has had no lightheadedness or dizziness. She has no significant incisional discomfort. Physical Exam Physical Exam: The incision is clean and dry, minor ecchymosis as expected. Cardiac rhythm is regular with no rub Lungs are clear Results & Data ([facility]) Vital Signs (Past 12 Hours) Vital Signs Temp Pulse Pulse Resp BP BP Pulse Ox 02/27/22 07:25 36.5 C 72 18 155/71 H 95 02/27/22 04:00 36.6 C 89 16 192/69 H 93 02/26/22 22:52 37.1 C 68 22 143/66 H 95 02/26/22 22:17 73 Diagnostic Findings Comprehensive Metabolic Panel 02/26/22 02/27/22 Range/Units 20:18 06:46 Sodium 133 L 135 L (136-145) mmol/L Potassium 4.8 4.4 (3.5-5.1) mmol/L Chloride 98 100 (98-107) mmol/L Carbon Dioxide 28 31 (21-32) mmol/L BUN 65 H 56 H (6-23) mg/dl Creatinine 1.87 H 1.45 H D (0.6-1.2) mg/dl Glucose 125 H 90 (70-99(Fasting)) mg/dl Calcium 8.9 9.1 (8.5-10.1) mg/dl Intake and Output 02/26/22 02/27/22 02/27/22 22:59 06:59 14:59 Intake Total 300 / 500 200 / 500 369 / 369 Output Total 500 / 1200 700 / 1200 Balance -200 / -700 -500 / -700 369 / 369 Intake: IV 369 / 369 Lactated Ringer's 1,000 ml @ 15 369 / 369 mls/hr IV .Q24H [facility] Rx#: [id number] Oral 300 / 500 200 / 500 Output: Urine 500 / 1200 700 / 1200 Other: Weight 72.1 kg Weight Measurement Method [facility] Postop ECG: Atrial sensing and ventricular pacing appropriately Telemetry: Atrial sensing and ventricular pacing throughout Pacemaker evaluation: Excellent pacing and sensing characteristics Chest x-ray: Good lead position, no pneumothorax PG Care Time/CCT Total # of Minutes Spent Total Time Spent with Patient: Total time spent is greater than 50% in coordination of care (as documented) at patient's floor/unit and/or counseling patient: Coding Level of Care Code 03270 Post Operative Follow-Up Diagnoses Status post placement of cardiac pacemaker Z95.0 CPT Codes Dual Lead Pacemaker System - 95699 ([id number])
--- NOTE | 2022-02-27 10:17 | Post Anesthesia Assessment ---
Date of Service February 27, 2022 Post Sedation Assessment Vital Signs Temp Pulse Pulse Resp BP BP Pulse Ox 02/27/22 07:25 36.5 C 72 18 155/71 H 95 02/27/22 04:00 36.6 C 89 16 192/69 H 93 02/26/22 22:52 37.1 C 68 22 143/66 H 95 02/26/22 22:17 73 02/26/22 19:58 36.3 C L 67 24 165/65 H 96 02/26/22 18:25 83 18 153/69 H 96 02/26/22 18:00 83 18 155/67 H 96 02/26/22 17:30 81 18 151/69 H 96 02/26/22 17:25 85 18 152/61 H 94 02/26/22 16:55 185 H 18 150/51 H 96 02/26/22 16:52 84 02/26/22 16:25 81 18 182/67 H 97 02/26/22 16:10 83 18 173/67 H 97 02/26/22 12:53 42 L 18 187/54 H 98 02/26/22 11:41 36.4 C L 42 L 20 175/90 H 93 Recovery Score Activity: Moves 4 extremities Respiration: Deep Breath/Cough Circulation: +/-20% PreAnes Value Consciousness: Fully Awake Oxygen Saturation: > 92% On Room Air Post Anesthesia Score: 10 Discharge Sedation Level of Care: Fast Track Phase II Post Sedation Plan On clinical assessment, the patient appears to have tolerated the sedation without complications. Patient is recovering as anticipated. Patient will continue to be monitored by nursing and may be discharged when sedation discharge criteria are met per below protocol. Upon Completions of procedure up to 15 minutes continue every 5 minute vital signs and the P.A.R. score; then discharge to a Phase I or Fast Track to Phase II per the following guidelines: * Discharge Patient to appropriate Phase II area if PAR is 8 or greater or return to pre- procedure baseline. The post - procedure orders will be as directed. * If PAR score is less than 8 or not return to pre-procedure baseline then patient will follow Phase I monitoring till PAR is reached for Phase II. The Phase I may be done in procedure room or may call to secure a Phase I area. * If naloxone or flumazenil are used for reversal, hold in Phase I for continued monitoring from when last reversal dose was given for a minimum of 60 minutes or longer pending the nurse and/or physician discretion of patient condition before discharge to Phase II. Please call the Sedation Physician to re-evaluate and complete post-note for discharge to Phase II area. Do NOT discharge from procedure sedation or Phase 1 until post- sedation evaluation note is complete by procedure /sedation MD Sedation Discharge Instructions to be given to the patient at discharge to home.
--- NOTE | 2022-02-27 18:36 | Discharge Summary ---
Date of Service February 27, 2022 Admission HPI Per Admitting Provider Ms. Alfaro is an 81-year-old female with a past medical history significant for HTN, carotid stenosis, HFpEF, dyslipidemia, DM2 with CKD, anemia, and depression who presents today with worsening shortness of breath over the past few days. States she has been less strict with her diet lately, eating more sweets as well as chips and some hot dogs this past week as she was [place] campsite with family. She has noticed an increase of 3-5 pounds over the past few weeks, with swelling noted in bilateral legs and abdomen, also with associated shortness of breath with activity and a mild cough. She had a leftover prescription for 40 mg of Lasix that she was told to take as needed for weight gain. She took 1 pill yesterday, however this was the last pill she had. Daughter was going to refill prescription today, however due to her shortness of breath combined with a low heart rate at home, came to ED for further evaluation. Otherwise without fever/chills, sputum production, chest pain/pressure, palpitations, PND, orthopnea, calf pain, abdominal pain, nausea, vomiting. In ED, she is hypertensive, also bradycardic with HR 30s40s, 92% on RA so was placed on 2L NC and now SpO2 > 97%. Labs significant for BUN 42, creatinine 1.25, baseline ~1.0. BNP 619. Initial hsTroponin 89.8, repeat 2 hours later 102.5. UA with protein. COVID and Lyme negative. CXR showed mild pulmonary edema and small left pleural effusion, chest CT with moderately large bilateral pleural effusions and compressive atelectasis/collapse of lower lobes. No evidence for PE, venous Doppler without evidence of DVT. Principal Diagnosis HFpEF second degree heart block, type 2, s/p pacemaker insertion Medtronic bipolar, MRI compatible, DDDR Discharge Exam The patient appeared well Vital signs as documented. Bandage left upper chest Lungs are clear to auscultation and appear unlabored Cardiac exam, Rhythm is regular.. Neurologic exam is alert and oriented, no focal loss of strength or sensation Discharge Data Allergies Allergy/AdvReac Type Severity Reaction Status Date / Time bacitracin Allergy Unknown UNKNOWN Verified 01/01/22 14:06 neomycin Allergy Unknown Unknown Verified 02/21/22 15:52 [From Neosporin ([id number])] polymyxin B Allergy Unknown UNKNOWN Verified 01/01/22 14:06 adhesive AdvReac Mild RED AND Verified 01/01/22 14:06 ITCHY Bandaid Allergy Mild red and Uncoded 01/01/22 14:06 itchy Consultations 02/21/22 16:36 ED Decision to Admit Stat 02/21/22 19:24 Consult Cardiology Routine Procedures Performed Operation Date: 02/26/22 14:00 Actual Procedures p Pacer with A/V Leads (Dual) - Tapan Weinstein MD s Lead LV (No Priopr Implant) - Tapan Weinstein MD Ordered Studies 02/21/22 15:13 US venous doppler LE RT Stat 02/21/22 15:14 CT angio chest PE protocol Stat CT head/brain wo con Stat 02/26/22 14:30 EP Lab Images for PACS ONCE Hospital Course (1) Acute on chronic heart failure with preserved ejection fraction: Decompensated CHF resolved. Suspect that acute CHF was due to development of high-grade AV block. (2) Second degree Mobitz II AV block: Despite 5+ days of holding metoprolol succinate she continues with Mobitz type 2 AV block & even brief runs of 3rd degree AV block. Lyme negative. TSH wnl. s/p permanent pacemaker placement today by Dr Weinstein -02/27/2022 CXR in am shows no pneumothorax cardiology has relayed that they feel she stable for discharge (3) RAIN (acute kidney injury): Improving but not completely at baseline expected continue to improve with increased perfusion from reliable heart rate (4) Hyperkalemia: Patiromer x 1. Resolved, repeat K this evening improved. (5) Elevated troponin: At time of admission. 2nd to myocardial demand ischemia No evidence of ACS. Echo without WMA. (6) Pleural effusion: (7) Hypertension: Continue amlodipine reduce lisinopril dose to 10 mg a day continue metformin 50 (8) Dyslipidemia: Continue atorvastatin 40 mg. (9) Diabetes mellitus, type II: HbA1C 5.5% - not even in pre-DM range. BSGs were excellent earlier this admission thus BSGs were stopped. (10) Carotid artery stenosis: Continue aspirin and Plavix. (11) Chronic kidney disease, stage 3 (moderate): Continue to follow with Dr. Donelan (12) Anemia: H/H mildly low but stable. repeat cbc today acceptable. (13) Severe recurrent major depression with psychotic features: Follows with Dr. Rivero for ongoing management as outpatient. Cont Zyprexa, Remeron, methylphenidate, and venlafaxine. Patient was able ambulate in the hallway before going home Total Time Total Time Spent Total Time Spent (In Minutes): It required greater than 30 minutes to prepare this patient for discharge Discharge Plan Discharge Items Patient Disposition: Home - Home Health Services Reason For Visit: [place] WITH B/L PLEURAL EFFUSIONS Discharge Diagnosis: heart block with pacemaker placement Activity: Per Instructions section Activity Comment: restriction of arm movement as per cardiology Non-emergency contact: Primary Care Provider and Drug Clerk Call non-emergency contact if: your symptoms worsen Follow-up/Referrals: Tapan Weinstein MD [Physician] - 03/01/22 10:30 am Tab Bellamy MD [Primary Care Provider] - 03/20/22 1:15 pm Diet: Carb Consistent or DM2 and Low Sodium (2gm) Addtl Attending Provider Instructions: Some of your traditional home medicines have been stopped or reduced, please see your family doctor to discuss if these changes should continue post discharge. IN regard to your pacemaker, please follow instructions below and follow up with Dr Weinstein ACTIVITY RECOMMENDATIONS: * You may shower/bathe in 2 day. MEDICATIONS: * Tylenol, as directed, for discomfort. SPECIAL CARE INSTRUCTIONS: * If bleeding occurs, apply direct pressure to area for 5 minutes. * Call your doctor if you have severe pain, fever, drainage or bleeding at site. * Keep dressing on and dry for 48 hours then remove. * Keep any scheduled doctor's appointment. SKIN IRRITATION: * You may experience some redness and/or swelling in the area where radiation was administered. If any skin irritation occurs, please contact your family physician. FOLLOW UP VISIT: Keep any scheduled doctor appointments. Pending Studies at Discharge: No Stand-Alone Forms: My [employer], Smoking Cessation Medications and DC Order Prescriptions: New polyethylene glycol 3350 [Miralax] 17 gram Powder In Packet 17 g PO BID 30 Days Qty: 60 RF: 0 lisinopril 10 mg tablet 10 mg PO DAILY Qty: 30 RF: 0 Continued mirtazapine 15 mg tablet 15 mg PO HS RF: 0 olanzapine [Zyprexa] 10 mg tablet 10 mg PO HS RF: 0 methylphenidate HCl [Ritalin] 10 mg tablet 10 mg PO TID RF: 0 metformin 500 mg tablet 500 mg PO BID Qty: 180 RF: 3 clopidogrel 75 mg tablet 75 mg PO DAILY Qty: 30 RF: 11 (DME) OneTouch Ultra Test Strip See Rx Instructions .ROUTE .MEDSUPPLY Qty: 100 RF: 3 metoprolol succinate 50 mg tablet extended release 24 hr 50 mg PO DAILY Qty: 90 RF: 3 amlodipine 10 mg tablet 10 mg PO DAILY Qty: 90 RF: 3 furosemide 40 mg tablet 40 mg PO DAILY PRN (Reason: weight gain) Qty: 30 RF: 6 (DME) lancets [OneTouch Delica Lancets] 30 gauge misc See Dose Instructions .ROUTE .MEDSUPPLY Qty: 25 RF: 0 cholecalciferol (vitamin D3) 2,000 unit tablet 2,000 units PO DAILY RF: 0 albuterol sulfate [Ventolin HFA] 90 mcg/actuation HFA aerosol inhaler 2 puffs INH Q6H PRN (Reason: SOB) RF: 0 olanzapine 2.5 mg tablet 2.5 mg PO HS RF: 0 venlafaxine 150 mg capsule,extended release 24hr 300 mg PO QAM RF: 0 mecobalamin (vitamin B12) 5,000 mcg tablet,disintegrating 2,500 mcg PO DAILY RF: 0 vitamin E (dl, acetate) 400 unit capsule 45 mg PO DAILY RF: 0 atorvastatin 40 mg tablet 40 mg PO HS RF: 0 Discharge Orders: Discharge Order (Routine); Ordered 02/27/22 Ordered By: Scot Castillo/Other Patient Handouts: Managing Type 2 Diabetes Admission Data Admit Date/Time: 02/21/22 17:07 Attending Provider: Scot Lindo Admit Provider: Erik Ryder Primary Care Provider: Tab Bellamy Other Providers: Erik Ryder ; Adolfo Todd Other Interventions: Discharge Summary Assessment (RN) Last Done: 02/27/22 13:16 Coding Level of Care Code D/C DAY MANAGEMENT >30 MINS Diagnoses Acute on chronic heart failure with preserved ejection fraction I50.33 Second degree Mobitz II AV block I44.1 RAIN (acute kidney injury) N17.9 Hyperkalemia E87.5 Elevated troponin R77.8 Pleural effusion J90 Hypertension I10 Hypertension type: essential hypertension Dyslipidemia E78.5 Diabetes mellitus, type II E11.9 Carotid artery stenosis I65.23 Laterality: bilateral Chronic kidney disease, stage 3 (moderate) N18.30 Chronic kidney disease stage 3 subtype: unspecified whether 3a or 3b Anemia D64.9 Severe recurrent major depression with psychotic features F33.3
== END 2022-02-27 14:28 | disposition home or self-care (01) | DRG 242 ==
LOC: ED 14:11 → 2N 17:07 → SUATTDRO 17:07 → 2N 18:40 → 2S 21:27

== ENCOUNTER 2022-03-05 10:31 | Inpatient (IN) ==
--- NOTE | 2022-03-05 11:37 | XRay Report ---
SINGLE VIEW CHEST CLINICAL HISTORY: Atypical chest pain FINDINGS: An AP, portable, upright chest radiograph is compared to study dated 02/27/2022 and correlate d with chest CT dated 02/21/2022. A 2-lead cardiac pacemaker is unchanged in position and partially ob scures the left mid chest. The heart is enlarged noting atherosclerotic calcification of the thoracic aorta. There is pulmonary vessel congestion. There are layering pleural effusions with dependent con solidation. No pneumothorax is seen. The skeletal structures are osteopenic. The bony thorax is gross ly intact. IMPRESSION: 1. Cardiomegaly and cardiac pacemaker with evidence of congestive failure. 2. Layering pleural effusions with dependent consolidation. ACT 112: Negative or not required by law. Electronically signed by: Sebastian Aguilar M.D. 03/05/2022 11:35 AM
[2022-03-05 12:05] LABS: Basophils # (auto) 0.02 K/uL (0-0.2); Basophils % (auto) 0.3 %; Eosinophils # (auto) 0.23 K/uL (0-0.5); Hematocrit (blood only) 30.9 % (37-47); Immature Granulocytes # (auto) 0.09 K/uL (0.00-0.02); Immature Granulocytes % (auto) 1.2 %; Lymphocytes % (auto) 14.3 %; Mean Corpuscular Hemoglobin 27.1 pg (25-34); Mean Corpuscular Hgb Conc 32.4 g/dL (32-36); Mean Corpuscular Volume 83.7 fL (80-100); Mean Platelet Volume 10.4 fL (7.4-10.4); Monocytes # (auto) 0.47 K/uL (0.11-0.59); Monocytes % (auto) 6.1 %; Neutrophils # (auto) 5.76 K/uL (1.4-6.5); Neutrophils % (auto) 75.1 %; Nucleated RBC # (auto) 0.02 K/uL (0-0); Nucleated RBC % (auto) 0.2 %; Platelet Count 272 K/uL (130-400); RDW Coefficient of Variation 16.4 % (11.5-14.5); RDW Standard Deviation 50.2 fL (36.4-46.3); Red Blood Count 3.69 M/uL (4.2-5.4); White Blood Count 7.67 K/uL (4.8-10.8)
[2022-03-05 12:24] LABS: INR 1.1 (0.9-1.1); Partial Thromboplastin Ratio 1.1; Partial Thromboplastin Time 30.2 Seconds (21.0-31.0)
[2022-03-05 12:26] LABS: D Dimer 2280 ug/L FEU (0-500)
[2022-03-05 12:45] LABS: Troponin I High Sensitivity 27.6 pg/ml (0-14)
[2022-03-05 12:51] LABS: Influenza A virus by PCR Negative (Neg); Influenza B virus by PCR Negative (Neg); RSV by PCR Negative (Neg); SARS CoV2 RNA(COVID-19) InHosp NEGATIVE (Negative)
[2022-03-05 13:50] LABS: Calcium 9.4 mg/dl (8.5-10.1); Potassium 4.9 mmol/L (3.5-5.1)
[2022-03-05] MEDS ORDERED: FUROSEMIDE 40 MG/4 ML VIAL IV ONE (13:55)
--- NOTE | 2022-03-05 13:55 | Emergency Department Note ---
History of Present Illness General Chief Complaint: Respiratory Problems Stated Complaint: PACEMAKER, O2 LEVELS DROPPING, 70S Time Seen by Provider: 03/05/22 11:04 History of Present Illness Provider Complaint: shortness of breath Onset (ago): week(s) (1) Severity: moderate Consistency/Duration: + progressively worsening Relieved By: + nothing Exacerbated By: + exertion Context: + other (pacemaker placed 1 week ago); no recent illness or no choking/aspiration Known history of: congestive heart failure Associated symptoms: no chest pain, no fever, no wheezing, no sputum production, no palpitations, no abdominal pain or no chest congestion Home Medications Medication Instructions Recorded Confirmed Type lancets 30 gauge (Selectable MediaTouch Delica #25 ea 05/04/19 01/01/22 History Lancets) cholecalciferol (vitamin D3) 50 2,000 units PO QAM tab 06/21/19 03/05/22 History mcg (2,000 unit) tablet albuterol sulfate 90 mcg/actuation 2 puffs INH Q6H PRN 09/17/19 03/05/22 History aerosol inhaler (Ventolin HFA) mecobalamin (vitamin B12) 5,000 2,500 mcg PO QAM tab 03/27/21 03/05/22 History mcg disintegrating tablet vitamin E (dl, acetate) 180 mg 45 mg PO QAM 03/27/21 03/05/22 History (400 unit) capsule metformin 500 mg tablet 500 mg PO BID #180 tab 05/07/21 03/05/22 Rx mirtazapine 15 mg tablet 15 mg PO HS 07/03/21 03/05/22 History olanzapine 10 mg tablet (Zyprexa) 10 mg PO HS tab 07/03/21 03/05/22 History venlafaxine 150 mg 300 mg PO QAM cap 07/03/21 03/05/22 History capsule,extended release 24 hr methylphenidate HCl 10 mg tablet 10 mg PO TID tab 08/15/21 03/05/22 History (Ritalin) olanzapine 2.5 mg tablet 2.5 mg PO HS 01/01/22 03/05/22 History Selectable MediaTouch Ultra Test (blood sugar #100 ea NS 01/03/22 Rx diagnostic) furosemide 40 mg tablet 40 mg PO DAILY PRN #30 tab 02/20/22 03/05/22 Rx atorvastatin 40 mg tablet 40 mg PO HS 02/21/22 03/05/22 History polyethylene glycol 3350 17 gram 17 g PO BID 30 Days #60 ea 02/27/22 03/05/22 Rx oral powder packet (Miralax) amlodipine 10 mg tablet 10 mg PO QAM 03/05/22 03/05/22 History clopidogrel 75 mg tablet 75 mg PO QAM 03/05/22 03/05/22 History lisinopril 10 mg tablet 10 mg PO QAM 03/05/22 03/05/22 History metoprolol succinate 50 mg 50 mg PO QAM 03/05/22 03/05/22 History tablet,extended release 24 hr Allergies Allergy/AdvReac Type Severity Reaction Status Date / Time bacitracin Allergy Unknown UNKNOWN Verified 03/05/22 12:31 neomycin Allergy Unknown Unknown Verified 03/05/22 12:31 [From Neosporin ([id number])] polymyxin B Allergy Unknown UNKNOWN Verified 03/05/22 12:31 adhesive AdvReac Mild RED AND Verified 03/05/22 12:31 ITCHY Bandaid Allergy Mild red and Uncoded 03/05/22 12:31 itchy 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) Trauma of upper extremity Vitamin D deficiency Surgical History History of cataract surgery History of dilatation and curettage History of ear surgery approx 1984 Hx of tonsillectomy Family History Family/Other Family history of coronary arteriosclerosis Depression Mother Cardiovascular disease Diabetes Other Family history of bleeding disorder No family history of adverse response to anesthesia Social History Smoking Status: Former smoker Tobacco Type: Cigarettes packs per day: 1; Years Smoked: 20; Hx Alcohol Use: No Hx Substance Use: No Preferred Language: Spanish Communication Ability: Effective Hearing Ability: Hard of Hearing [employer] Furniture Required: No Beliefs That Will Affect Care: None marital status: / Current Living Situation: Family Current Living Situation Comment: with daughter current occupational status: retired How many Children do You have: 2 Feels Safe at Home: Yes caffeine: Yes during the past year weight has: decreased > 10 lbs Do you think of yourself as: straight/heterosexual Gender Identity: Female Assistive Devices: None Review of Systems A total of 10 systems reviewed and were otherwise negative Physical Exam Vital Signs: Vital Signs - 24 hr 03/05/22 10:42 03/05/22 11:31 03/05/22 12:06 Temperature 36.2 C L Temperature Source Temporal Artery Sc an Pulse Rate 64 Pulse Rate [Left F caren] 62 Pulse Rhythm [Left Finger] Regular Pulse Strength [Le ft Finger] Normal Respiratory Rate 18 18 Respiratory Effort / Characteristics Non-Labored Sponta neous Respiratory Depth Normal Respiratory Patter n Regular Blood Pressure 173/71 H Blood Pressure [Le ft Arm] 180/66 H Blood Pressure Fallon n 105 Blood Pressure Fall[place] n [Left Arm] 104 Blood Pressure Pos ition Lying Blood Pressure Pos ition [Left Arm] Lying Pulse Oximetry 92 92 88 L Oxygen Delivery Me thod Room Air Room Air Nasal Cannula Oxygen Flow Rate 0 Sepsis Recent Feve r Within 48 Hours No Sepsis New/Unexpla ined Change in Men miguel Status N/A Sepsis Action Take n by Nursing No Action Required Oxygen Flow Rate - Titration 2 Pulse Oximetry Pos t Tiitration 98 03/05/22 13:58 03/05/22 15:00 Temperature Temperature Source Pulse Rate Pulse Rate [Left F caren] 64 60 Pulse Rhythm [Left Finger] Regular Regular Pulse Strength [Le ft Finger] Normal Normal Respiratory Rate 18 18 Respiratory Effort / Characteristics Non-Labored Non-Labored Respiratory Depth Normal Normal Respiratory Patter n Regular Regular Blood Pressure Blood Pressure [Le ft Arm] 156/60 H 158/82 H Blood Pressure Fallon n Blood Pressure Fallon n [Left Arm] 92 107 Blood Pressure Pos ition Blood Pressure Pos ition [Left Arm] Lying Pulse Oximetry 99 98 Oxygen Delivery Me thod Nasal Cannula Nasal Cannula Oxygen Flow Rate 2 2 Sepsis Recent Feve r Within 48 Hours Sepsis New/Unexpla ined Change in Men miguel Status Sepsis Action Take n by Nursing Oxygen Flow Rate - Titration Pulse Oximetry Pos t Tiitration Physical Exam: Physical Exam GENERAL: She is oriented to person, place, and time. She appears well-developed and well-nourished. She does not appear distressed. HENT: Exam performed. -Head: Normocephalic and atraumatic. -Right Ear: External ear normal. No mastoid tenderness. -Left Ear: External ear normal. No mastoid tenderness. -Mouth/Throat: The oropharynx is clear and moist. No trismus in the jaw. No dental abscesses or uvula swelling. No oropharyngeal exudate or tonsillar abscesses. EYES: Conjunctivae and EOM are normal. Pupils are equal, round, and reactive to light. Right eye exhibits no discharge. Left eye exhibits no discharge. No scleral icterus. NECK: Normal range of motion. Neck supple. No JVD present. No spinous process tenderness present. No carotid bruit present. No rigidity. No tracheal deviation and normal range of motion present. No Brudzinski's sign and no Kernig's sign noted. CV: Normal rate, regular rhythm, normal heart sounds and intact distal pulses. There is no peripheral edema. Palpable radial pulses bue. PULM/CHEST: Rhonchi bilaterally and faint inspiratory rales at the bases. -Chest Wall: She exhibits no tenderness. ABD: The abdomen is soft. Bowel sounds are normal. She has no distension. No mass is present. There is no tenderness. There is no rebound, no guarding, no Marin's sign and no tenderness at McBurney's point. Rovsig negative MUSC/SKEL: Normal range of motion. There is no peripheral edema, tenderness or deformity. LYMPH: No cervical adenopathy. NEURO: She is alert and oriented to person, place, and time. She has normal strength. No cranial nerve deficit or sensory deficit. Coordination and gait normal. GCS eye subscore is 4. GCS verbal subscore is 5. GCS motor subscore is 6. Cerebellar tests wnl. SKIN: Skin is warm and dry. She is not diaphoretic. PSYCH: She has a normal mood and affect. Behavior is normal. Judgment and thought content normal. Course Course 1104: The patient was evaluated in room B2. A complete history and physical exam was performed Cardiac monitoring: An order was placed for continuous cardiac monitoring. The monitor shows a rate of 60 with paced rhythm 1200: Vital signs showed that the patient's oxygen saturation went below 90% while sitting in bed. Patient was applied supplemental oxygen via nasal cannula which improved the patient's oxygen saturation. 1500:Vital signs stable on supplemental oxygen via nasal cannula. Labs within normal limits with exception of an elevated troponin of 27.6, patient denies any chest pain. Imaging does show fluid overloaded. D-dimer is also elevated however CTA of the chest was negative for PE. Patient was treated with Lasix 40 mg IV push [facility]. Administered Medications Discontinued Medications Furosemide (Furosemide 40 Mg/4 Ml Vial) 40 mg IV ONE ONE Stop: 03/05/22 13:56 Last Admin: 03/05/22 14:44 Dose: 40 mg Documented by: [id number] Ioversol (Optiray 320 125ml) 120 ml IV ONCE ONE Stop: 03/05/22 14:31 Last Admin: 03/05/22 14:17 Dose: 120 ml Documented by: [id number] Medical Decision Making Laboratory Data Result diagrams: 03/05/22 11:51 03/05/22 11:51 Lab Results 03/05/22 03/05/22 03/05/22 Range/Units 11:51 11:51 11:51 WBC 7.67 (4.8-10.8) K/uL RBC 3.69 L (4.2-5.4) M/uL Hgb 10.0 L (12.0-16.0) g/dL POC Hgb (12.0-16.0) g/dl Hct 30.9 L (37-47) % POC Hct (37-47) % MCV 83.7 (80-100) fL MCH 27.1 (25-34) pg MCHC 32.4 (32-36) g/dL RDW Std Deviation 50.2 H (36.4-46.3) fL RDW Coeff of Juanita 16.4 H (11.5-14.5) % Plt Count 272 (130-400) K/uL MPV 10.4 (7.4-10.4) fL Immature Gran % (Auto) 1.2 % Neut % (Auto) 75.1 % Lymph % (Auto) 14.3 % [place] % (Auto) 6.1 % Eos % (Auto) 3.0 % Baso % (Auto) 0.3 % Neut # (Auto) 5.76 (1.4-6.5) K/uL Lymph # (Auto) 1.10 L (1.2-3.4) K/uL [place] # (Auto) 0.47 (0.11-0.59) K/uL Eos # (Auto) 0.23 (0-0.5) K/uL Baso # (Auto) 0.02 (0-0.2) K/uL Immature Gran # (Auto) 0.09 H (0.00-0.02) K/uL Absolute Nucleated RBC 0.02 H (0-0) K/uL Nucleated RBC % (auto) 0.2 % PT 12.0 (9.0-12.0) Seconds INR 1.1 (0.9-1.1) APTT 30.2 (21.0-31.0) Seconds PTT Ratio 1.1 D-Dimer 2280 H* (0-500) ug/L FEU POC Sodium (135-144) mmol/L Sodium 131 L (136-145) mmol/L POC Potassium (3.3-5.0) mmol/L Potassium 4.9 (3.5-5.1) mmol/L POC Chloride (101-112) mmol/L Chloride 93 L (98-107) mmol/L Carbon Dioxide 31 (21-32) mmol/L POC Total CO2 (24-31) mmol/L Anion Gap 7 (3-11) POC Anion Gap (16-25) mmol/L POC BUN (7-18) mg/dl BUN 32 H (6-23) mg/dl Creatinine 0.99 (0.6-1.2) mg/dl POC Creatinine (0.6-1.3) mg/dl Est Cr Clr Drug Dosing 39.4 ml/min Est GFR ( Amer) 61.1 ml/min Est GFR (Non-Af Amer) 52.7 ml/min BUN/Creatinine Ratio 32.3 H (10-20) Glucose 81 (70-99(Fasting)) mg/dl POC Glucose (other) (70-99) mg/dl Calcium 9.4 (8.5-10.1) mg/dl POC Ioniz Calcium Anastasiia (1.12-1.32) mmol/l Troponin I High Sens 27.6 H D (0-14) pg/ml Lipase 34 (11-82) U/L SARS-CoV-2 (PCR) (Negative) Influenza Type A (PCR) (Neg) Influenza Type B (PCR) (Neg) RSV (RT-PCR) (Neg) 03/05/22 03/05/22 Range/Units 11:51 13:54 WBC (4.8-10.8) K/uL RBC (4.2-5.4) M/uL Hgb (12.0-16.0) g/dL POC Hgb 9.5 L (12.0-16.0) g/dl Hct (37-47) % POC Hct 28 L (37-47) % MCV (80-100) fL MCH (25-34) pg MCHC (32-36) g/dL RDW Std Deviation (36.4-46.3) fL RDW Coeff of Juanita (11.5-14.5) % Plt Count (130-400) K/uL MPV (7.4-10.4) fL Immature Gran % (Auto) % Neut % (Auto) % Lymph % (Auto) % [place] % (Auto) % Eos % (Auto) % Baso % (Auto) % Neut # (Auto) (1.4-6.5) K/uL Lymph # (Auto) (1.2-3.4) K/uL [place] # (Auto) (0.11-0.59) K/uL Eos # (Auto) (0-0.5) K/uL Baso # (Auto) (0-0.2) K/uL Immature Gran # (Auto) (0.00-0.02) K/uL Absolute Nucleated RBC (0-0) K/uL Nucleated RBC % (auto) % PT (9.0-12.0) Seconds INR (0.9-1.1) APTT (21.0-31.0) Seconds PTT Ratio D-Dimer (0-500) ug/L FEU POC Sodium 130 L (135-144) mmol/L Sodium (136-145) mmol/L POC Potassium 4.7 (3.3-5.0) mmol/L Potassium (3.5-5.1) mmol/L POC Chloride 91 L (101-112) mmol/L Chloride (98-107) mmol/L Carbon Dioxide (21-32) mmol/L POC Total CO2 32 H (24-31) mmol/L Anion Gap (3-11) POC Anion Gap 12.0 L (16-25) mmol/L POC BUN 35 H (7-18) mg/dl BUN (6-23) mg/dl Creatinine (0.6-1.2) mg/dl POC Creatinine 0.9 (0.6-1.3) mg/dl Est Cr Clr Drug Dosing ml/min Est GFR ( Amer) ml/min Est GFR (Non-Af Amer) ml/min BUN/Creatinine Ratio (10-20) Glucose (70-99(Fasting)) mg/dl POC Glucose (other) 92 (70-99) mg/dl Calcium (8.5-10.1) mg/dl POC Ioniz Calcium Anastasiia 1.16 (1.12-1.32) mmol/l Troponin I High Sens (0-14) pg/ml Lipase (11-82) U/L SARS-CoV-2 (PCR) NEGATIVE (Negative) Influenza Type A (PCR) Negative (Neg) Influenza Type B (PCR) Negative (Neg) RSV (RT-PCR) Negative (Neg) Imaging Data Radiologist's Impression: Chest X-Ray 03/05/22 11:08 SINGLE VIEW CHEST CLINICAL HISTORY: Atypical chest pain FINDINGS: An AP, portable, upright chest radiograph is compared to study dated 02/27/2022 and correlated with chest CT dated 02/21/2022. A 2-lead cardiac pacemaker is unchanged in position and partially obscures the left mid chest. The heart is enlarged noting atherosclerotic calcification of the thoracic aorta. There is pulmonary vessel congestion. There are layering pleural effusions with dependent consolidation. No pneumothorax is seen. The skeletal structures are osteopenic. The bony thorax is grossly intact. IMPRESSION: 1. Cardiomegaly and cardiac pacemaker with evidence of congestive failure. 2. Layering pleural effusions with dependent consolidation. ACT 112: Negative or not required by law. Electronically signed by: Sebastian Aguilar M.D. 03/05/2022 11:35 AM Chest CTA 03/05/22 13:55 CT angio chest PE protocol CT DOSE: 553.08 mGycm HISTORY: 81 years-old Female with ro PE. Acute shortness of breath with recent pacemaker placement TECHNIQUE: Multiple CTA images of the chest were obtained after the intravenous administration of 120 ml Optiray. Coronal and sagittal MIPS were obtained from the axial data set and were submitted for review. All measurements were obtained according to NASCET criteria. A dose lowering technique was utilized adhering to the principles of ALARA. COMPARISON: Chest radiograph of same day, CTA chest 02/21/2022 and also 10/13/2017. FINDINGS: CTA: Moderate to marked cardiomegaly with cardiac pacer. Extensive [place] coronary artery calcifications. Atherosclerosis of the thoracic aorta without aneurysm or dissection. Dilated pulmonary artery suggestive of pulmonary artery hypertension. No filling defects identified to suggest thromboembolic disease. CT CHEST: Unremarkable thyroid. No pathologically enlarged lymph nodes. Moderate layering pleural effusions. No pneumothorax. Moderate pulmonary emphysema with bronchial wall thickening. Dependent bibasilar consolidation. There are a few scattered low suspicion solid pulmonary nodules measuring up to 4 mm which are unchanged. The central airways are patent mild intralobular septal thickening. Thickening of the adrenal glands suggests adrenal hyperplasia. There is moderate colonic fecal retention. Unremarkable soft tissues. There are a few subacute to chronic appearing anterior left-sided rib fractures. Degenerative changes of the shoulders and spine. IMPRESSION: 1. Cardiomegaly with mild interstitial pulmonary edema and moderate layering pleural effusions. 2. Dependent bibasilar consolidation suggests compressive atelectasis. 3. No pulmonary emboli. ACT 112: Negative or not required by law. The above report was generated using voice recognition software. It may contain grammatical, syntax or spelling errors. Electronically signed by: Pino Childress M.D. 03/05/2022 2:51 PM ECG Data Interpretation: Paced rhythm with rate of 60.DE 200 QRS 162 QTC 452. No ectopy. [facility] Narrative 1104: The patient was evaluated in room B2. A complete history and physical exam was performed Cardiac monitoring: An order was placed for continuous cardiac monitoring. The monitor shows a rate of 60 with paced rhythm 1200: Vital signs showed that the patient's oxygen saturation went below 90% while sitting in bed. Patient was applied supplemental oxygen via nasal cannula which improved the patient's oxygen saturation. 1500:Vital signs stable on supplemental oxygen via nasal cannula. Labs within normal limits with exception of an elevated troponin of 27.6, patient denies any chest pain. Imaging does show fluid overloaded. D-dimer is also elevated however CTA of the chest was negative for PE. Patient was treated with Lasix 40 mg IV push the patient will be admitted to the [facility] hospitalist team Dr. Gaston notified. Impression & Plan Hypoxia, Acute exacerbation of CHF (congestive heart failure) Critical Care Time Critical Care Time: Yes Total Critical Care Time: 40 I have personally spent greater than 40 minutes of critical care time in the direct management of this patient. This includes bedside care, interpretation of diagnostic studies, and testing, discussion with consultants, patient, and family members, and other required patient management activities. This 40 minutes is in excess of all separately billable procedures. Discharge Plan Visit Data Chief Complaint: Respiratory Problems Stated Complaint: PACEMAKER, O2 LEVELS DROPPING, 70S Discharge Problem: Hypoxia, Acute exacerbation of CHF (congestive heart failure) Patient Disposition: Admitted As Inpatient Forms Stand Alone Forms: My [facility] Prescriptions Prescriptions: No Action mirtazapine 15 mg tablet 15 mg PO HS RF: 0 olanzapine [Zyprexa] 10 mg tablet 10 mg PO HS RF: 0 methylphenidate HCl [Ritalin] 10 mg tablet 10 mg PO TID RF: 0 metformin 500 mg tablet 500 mg PO BID Qty: 180 RF: 3 (DME) OneTouch Ultra Test Strip See Rx Instructions .ROUTE .MEDSUPPLY Qty: 100 RF: 3 furosemide 40 mg tablet 40 mg PO DAILY PRN (Reason: weight gain) Qty: 30 RF: 6 (DME) lancets [OneTouch Delica Lancets] 30 gauge misc See Dose Instructions .ROUTE .MEDSUPPLY Qty: 25 RF: 0 cholecalciferol (vitamin D3) 2,000 unit tablet 2,000 units PO QAM RF: 0 albuterol sulfate [Ventolin HFA] 90 mcg/actuation HFA aerosol inhaler 2 puffs INH Q6H PRN (Reason: SOB) RF: 0 olanzapine 2.5 mg tablet 2.5 mg PO HS RF: 0 venlafaxine 150 mg capsule,extended release 24hr 300 mg PO QAM RF: 0 mecobalamin (vitamin B12) 5,000 mcg tablet,disintegrating 2,500 mcg PO QAM RF: 0 vitamin E (dl, acetate) 400 unit capsule 45 mg PO QAM RF: 0 metoprolol succinate 50 mg tablet extended release 24 hr 50 mg PO QAM RF: 0 clopidogrel 75 mg tablet 75 mg PO QAM RF: 0 amlodipine 10 mg tablet 10 mg PO QAM RF: 0 lisinopril 10 mg tablet 10 mg PO QAM RF: 0 atorvastatin 40 mg tablet 40 mg PO HS RF: 0 polyethylene glycol 3350 [Miralax] 17 gram Powder In Packet 17 g PO BID 30 Days Qty: 60 RF: 0 Referrals Referrals: Tab Bellamy MD [Primary Care Provider] -
[2022-03-05 13:56] LABS: BUN Creatinine Ratio 32.3 (10-20); Creatinine Clr Calc Pharmacy 39.4 ml/min; Est GFR (African American) 61.1 ml/min; Est GFR (Non-African American) 52.7 ml/min
[2022-03-05 14:05] LABS: iSTAT Creatinine 0.9 mg/dl (0.6-1.3); iSTAT Hemoglobin 9.5 g/dl (12.0-16.0); iSTAT Ionized Calcium 1.16 mmol/l (1.12-1.32); iSTAT Potassium 4.7 mmol/L (3.3-5.0)
[2022-03-05] MEDS ORDERED: OPTIRAY 320 125ml IV ONE (14:30)
--- NOTE | 2022-03-05 14:52 | CT Scan Report ---
CT angio chest PE protocol CT DOSE: 553.08 mGycm HISTORY: 81 years-old Female with ro PE. Acute shortness of breath with recent pacemaker placement TECHNIQUE: Multiple CTA images of the chest were obtained after the intravenous administration of 120 ml Optiray. Coronal and sagittal MIPS were obtained from the axial data set and were submitted for review. All measurements were obtained according to NASCET criteria. A dose lowering technique was u tilized adhering to the principles of ALARA. COMPARISON: Chest radiograph of same day, CTA chest 02/21/2022 and also 10/13/2017. FINDINGS: CTA: Moderate to marked cardiomegaly with cardiac pacer. Extensive [place] coronary artery calcifications. Atherosclerosis of the thoracic aorta without aneurysm or dissection. Dilated pulmonary artery sugges tive of pulmonary artery hypertension. No filling defects identified to suggest thromboembolic diseas e. CT CHEST: Unremarkable thyroid. No pathologically enlarged lymph nodes. Moderate layering pleural effusions. No pneumothorax. Moderate pulmonary emphysema with bronchial wall thickening. Dependent bibasilar conso lidation. There are a few scattered low suspicion solid pulmonary nodules measuring up to 4 mm which are unchanged. The central airways are patent mild intralobular septal thickening. Thickening of the adrenal glands suggests adrenal hyperplasia. There is moderate colonic fecal retent ion. Unremarkable soft tissues. There are a few subacute to chronic appearing anterior left-sided rib fractures. Degenerative changes of the shoulders and spine. IMPRESSION: 1. Cardiomegaly with mild interstitial pulmonary edema and moderate layering pleural effusions. 2. Dependent bibasilar consolidation suggests compressive atelectasis. 3. No pulmonary emboli. ACT 112: Negative or not required by law. The above report was generated using voice recognition software. It may contain grammatical, syntax o r spelling errors. Electronically signed by: Pino Childress M.D. 03/05/2022 2:51 PM
--- NOTE | 2022-03-05 16:42 | History & Physical Report ---
Date of Service March 05, 2022 Assessment & Plan (1) Acute on chronic heart failure with preserved ejection fraction: Plan: Patient treated for same during the previous admission. At that time her decompensated CHF was felt 2nd to her high-degree AV block with poor cardiac output from such. She was diuresed aggressively; did developed mild RAIN from such. It is quite possible that her b/l pleural effusions never resolved despite diuresis. s/p lasix IV in the ER today. Will cont such -- 40mg IV BID. Repeat cxr next 1-2 days. If effusions persist consider thoracentesis. Continue beta elias. (2) Status post placement of cardiac pacemaker: Plan: 02/26/22 - Dr Weinstein, 2nd to high-degree AV block. Request interrogation - ensure proper device function. (3) Second degree Mobitz II AV block: Plan: as above (4) Acute respiratory failure with hypoxia: Plan: 2nd to #1 NC O2 diurese other supportive measures (5) Bilateral pleural effusion: Plan: moderate in size on CT chest today. she had the effusions during the prior stay. it does not appear these improved despite aggressive attempts at diuresis. follow carefully - may need intervention (thoracentesis). cont IV lasix in meantime. (6) Constipation: Plan: senna + miralax BID (7) RAIN (acute kidney injury): Plan: 2nd to recent decompensated CHF, AV block, diuretics, etc. now improved. BMP am. (8) Controlled type 2 diabetes mellitus: Plan: 02/22/22 - HbA1C 5.5%. Novolog SSI. BSGs ac/hs. (9) Chronic kidney disease, stage 3 (moderate): Plan: baseline Creatinine low 1's daily BMP while being diuresed (10) Depression: Plan: with h/o hospitalization for such cont all home meds Plan: DVT proph - heparin SC daughter updated at bedside patient will need PT/OT History of Present Illness Chief Complaint: dyspnea on exertion Primary Care Provider: Tab Bellamy MD 81yo female with h/o chronic diastolic CHF and recent hospitalization for decompensated CHF 2nd to development of high-grade AV block (Mobitz 2) s/p permanent pacemaker placement presents with ongoing dyspnea on exertion beginning shortly after arrival home. Patient's daughter is at bedside during the encounter and states that upon return home her mother's o2 sats were low 90s in RA at rest. However, with activity, O2 sats would drop to the 80s. This trend continued over the last few days. Denies cough, fever, anorexia or dyspnea at rest. She has had orthopnea and has been sleeping in a chair at an angle in the living room since her hospital discharge. Overnight her daughter checked her O2 sats at rest and they registered 70s prompting the ER visit. She has been compliant with lasix 40mg daily. Weights have been 163 to 164 pounds. Allergies Allergy/AdvReac Type Severity Reaction Status Date / Time bacitracin Allergy Unknown UNKNOWN Verified 03/05/22 12:31 neomycin Allergy Unknown Unknown Verified 03/05/22 12:31 [From Neosporin ([id number])] polymyxin B Allergy Unknown UNKNOWN Verified 03/05/22 12:31 adhesive AdvReac Mild RED AND Verified 03/05/22 12:31 ITCHY Bandaid Allergy Mild red and Uncoded 03/05/22 12:31 itchy Home Medications Medication Instructions Recorded Confirmed Type lancets 30 gauge (OneTouch Delica #25 ea 05/04/19 01/01/22 History Lancets) cholecalciferol (vitamin D3) 50 2,000 units PO QAM tab 06/21/19 03/05/22 History mcg (2,000 unit) tablet albuterol sulfate 90 mcg/actuation 2 puffs INH Q6H PRN 09/17/19 03/05/22 History aerosol inhaler (Ventolin HFA) mecobalamin (vitamin B12) 5,000 2,500 mcg PO QAM tab 03/27/21 03/05/22 History mcg disintegrating tablet vitamin E (dl, acetate) 180 mg 45 mg PO QAM 03/27/21 03/05/22 History (400 unit) capsule metformin 500 mg tablet 500 mg PO BID #180 tab 05/07/21 03/05/22 Rx mirtazapine 15 mg tablet 15 mg PO HS 07/03/21 03/05/22 History olanzapine 10 mg tablet (Zyprexa) 10 mg PO HS tab 07/03/21 03/05/22 History venlafaxine 150 mg 300 mg PO QAM cap 07/03/21 03/05/22 History capsule,extended release 24 hr methylphenidate HCl 10 mg tablet 10 mg PO TID tab 08/15/21 03/05/22 History (Ritalin) olanzapine 2.5 mg tablet 2.5 mg PO HS 01/01/22 03/05/22 History OneTouch Ultra Test (blood sugar #100 ea NS 01/03/22 Rx diagnostic) furosemide 40 mg tablet 40 mg PO DAILY PRN #30 tab 02/20/22 03/05/22 Rx atorvastatin 40 mg tablet 40 mg PO HS 02/21/22 03/05/22 History polyethylene glycol 3350 17 gram 17 g PO BID 30 Days #60 ea 02/27/22 03/05/22 Rx oral powder packet (Miralax) amlodipine 10 mg tablet 10 mg PO QAM 03/05/22 03/05/22 History clopidogrel 75 mg tablet 75 mg PO QAM 03/05/22 03/05/22 History lisinopril 10 mg tablet 10 mg PO QAM 03/05/22 03/05/22 History metoprolol succinate 50 mg 50 mg PO QAM 03/05/22 03/05/22 History tablet,extended release 24 hr Past Med/Surg History Medical History (Updated 03/05/22 @ 23:41 by Erik Bailey) Anemia Arthritis Carotid artery stenosis Cerumen impaction Chronic kidney disease, stage 3 (moderate) Depression Diabetes mellitus, type II Diabetic retinopathy, nonproliferative Dyslipidemia ETD (eustachian tube dysfunction) History of skin cancer Melanoma Mixed conductive and sensorineural hearing loss of right ear with restricted hearing of left ear No family history of adverse response to anesthesia Obesity, morbid, BMI 40.0-49.9 Pleural effusion Sensorineural hearing loss of both 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) Trauma of upper extremity Vitamin D deficiency Surgical History History of cataract surgery History of dilatation and curettage History of ear surgery approx 1984 Hx of tonsillectomy 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 - Tapan Weinstein MD - 02/2022 Family History Family/Other Family history of coronary arteriosclerosis Depression Mother Cardiovascular disease Diabetes Other Family history of bleeding disorder No family history of adverse response to anesthesia Social History (Updated 03/05/22 @ 17:29 by Erik Howard Smoking Status: Former smoker Tobacco Type: Cigarettes packs per day: 1; Years Smoked: 50; Hx Alcohol Use: No Hx Substance Use: No Preferred Language: Haitian Communication Ability: Effective Hearing Ability: Hard of Hearing Counter Clerk Required: No Beliefs That Will Affect Care: None marital status: / Current Living Situation: Family Current Living Situation Comment: house current occupational status: retired current occupation: worked in the [employer] How many Children do You have: 2 Other Information That Helps Us Care for You: No Feels Safe at Home: Yes Safety Concerns: Feels Safe At This Time caffeine: Yes during the past year weight has: decreased > 10 lbs Do you think of yourself as: straight/heterosexual Gender Identity: Female Assistive Devices: Glasses Assistive Devices Comment: no glasses with her doesn't wear dentures Review of Systems Review of Systems: gen - no fevers, chills, loss of appetite; no significant weight gain or loss since hospital discharge eyes - no change in vision HENT - chronic nasal discharge, no dysphagia CV - no chest pain; +orthopnea, +[place]; no cough pulm - no sputum or cough GI - no N/V/diarrhea; some constipation - no dysuria musculo - no specific joint pains skin - well-healing operative site left upper chest; no rash psych - normal mood endo - history of diabetes neuro - no headache Physical Exam Physical Exam: gen - NAD, comfortable eyes - PERRL HENT - MM dry, no lesions neck - JVD present; no masses heart - RRR, s1 s2 lungs - decreased BS bases, CTA b/l apices, no increased work of breathing abd - mildly distended, BS+, NT, no HSM ext - trace edema b/l, pulses 2+ b/l skin - pacer site left upper chest well-healed, clean neuro - strength 5/5 x 4 exts, DTRs 2+ b/l musculo - no joint swelling psych - a/o x 3 Results & Data Results & Data ([facility]) Vital Signs (Past 12 Hours) Vital Signs Temp Pulse Pulse Resp BP BP Pulse Ox 03/05/22 15:00 60 18 158/82 H 98 03/05/22 13:58 64 18 156/60 H 99 03/05/22 12:06 88 L 06/07/22 11:31 62 18 180/66 H 92 03/05/22 10:42 36.2 C L 64 18 173/71 H 92 Laboratory Results Laboratory Results - last 24 hr 03/05/22 03/05/22 03/05/22 11:51 11:51 11:51 WBC 7.67 RBC 3.69 L Hgb 10.0 L POC Hgb Hct 30.9 L POC Hct MCV 83.7 MCH 27.1 MCHC 32.4 RDW Std Deviation 50.2 H RDW Coeff of Juanita 16.4 H Plt Count 272 MPV 10.4 Immature Gran % (Auto) 1.2 Neut % (Auto) 75.1 Lymph % (Auto) 14.3 [place] % (Auto) 6.1 Eos % (Auto) 3.0 Baso % (Auto) 0.3 Neut # (Auto) 5.76 Lymph # (Auto) 1.10 L [place] # (Auto) 0.47 Eos # (Auto) 0.23 Baso # (Auto) 0.02 Immature Gran # (Auto) 0.09 H Absolute Nucleated RBC 0.02 H Nucleated RBC % (auto) 0.2 PT 12.0 INR 1.1 APTT 30.2 PTT Ratio 1.1 D-Dimer 2280 H* POC Sodium Sodium 131 L POC Potassium Potassium 4.9 POC Chloride Chloride 93 L Carbon Dioxide 31 POC Total CO2 Anion Gap 7 POC Anion Gap POC BUN BUN 32 H Creatinine 0.99 POC Creatinine Est Cr Clr Drug Dosing 39.4 Est GFR ( Amer) 61.1 Est GFR (Non-Af Amer) 52.7 BUN/Creatinine Ratio 32.3 H Glucose 81 POC Glucose POC Glucose (other) Calcium 9.4 POC Ioniz Calcium Anastasiia Troponin I High Sens 27.6 H D Lipase 34 SARS-CoV-2 (PCR) Influenza Type A (PCR) Influenza Type B (PCR) RSV (RT-PCR) 03/05/22 03/05/22 03/05/22 11:51 13:54 20:03 WBC RBC Hgb POC Hgb 9.5 L Hct POC Hct 28 L MCV MCH MCHC RDW Std Deviation RDW Coeff of Juanita Plt Count MPV Immature Gran % (Auto) Neut % (Auto) Lymph % (Auto) [place] % (Auto) Eos % (Auto) Baso % (Auto) Neut # (Auto) Lymph # (Auto) [place] # (Auto) Eos # (Auto) Baso # (Auto) Immature Gran # (Auto) Absolute Nucleated RBC Nucleated RBC % (auto) PT INR APTT PTT Ratio D-Dimer POC Sodium 130 L Sodium POC Potassium 4.7 Potassium POC Chloride 91 L Chloride Carbon Dioxide POC Total CO2 32 H Anion Gap POC Anion Gap 12.0 L POC BUN 35 H BUN Creatinine POC Creatinine 0.9 Est Cr Clr Drug Dosing Est GFR ( Amer) Est GFR (Non-Af Amer) BUN/Creatinine Ratio Glucose POC Glucose 135 H POC Glucose (other) 92 Calcium POC Ioniz Calcium Anastasiia 1.16 Troponin I High Sens Lipase SARS-CoV-2 (PCR) NEGATIVE Influenza Type A (PCR) Negative Influenza Type B (PCR) Negative RSV (RT-PCR) Negative Diagnostic Findings Chest X-Ray 03/05/22 11:08 SINGLE VIEW CHEST CLINICAL HISTORY: Atypical chest pain FINDINGS: An AP, portable, upright chest radiograph is compared to study dated 02/27/2022 and correlated with chest CT dated 02/21/2022. A 2-lead cardiac pacemaker is unchanged in position and partially obscures the left mid chest. The heart is enlarged noting atherosclerotic calcification of the thoracic aorta. There is pulmonary vessel congestion. There are layering pleural effusions with dependent consolidation. No pneumothorax is seen. The skeletal structures are osteopenic. The bony thorax is grossly intact. IMPRESSION: 1. Cardiomegaly and cardiac pacemaker with evidence of congestive failure. 2. Layering pleural effusions with dependent consolidation. ACT 112: Negative or not required by law. Electronically signed by: Sebastian Aguilar M.D. 03/05/2022 11:35 AM Chest CTA 03/05/22 13:55 CT angio chest PE protocol CT DOSE: 553.08 mGycm HISTORY: 81 years-old Female with ro PE. Acute shortness of breath with recent pacemaker placement TECHNIQUE: Multiple CTA images of the chest were obtained after the intravenous administration of 120 ml Optiray. Coronal and sagittal MIPS were obtained from the axial data set and were submitted for review. All measurements were obtained according to NASCET criteria. A dose lowering technique was utilized adhering to the principles of ALARA. COMPARISON: Chest radiograph of same day, CTA chest 02/21/2022 and also 10/13/2017. FINDINGS: CTA: Moderate to marked cardiomegaly with cardiac pacer. Extensive lower el[place]a coronary artery calcifications. Atherosclerosis of the thoracic aorta without aneurysm or dissection. Dilated pulmonary artery suggestive of pulmonary artery hypertension. No filling defects identified to suggest thromboembolic disease. CT CHEST: Unremarkable thyroid. No pathologically enlarged lymph nodes. Moderate layering pleural effusions. No pneumothorax. Moderate pulmonary emphysema with bronchial wall thickening. Dependent bibasilar consolidation. There are a few scattered low suspicion solid pulmonary nodules measuring up to 4 mm which are unchanged. The central airways are patent mild intralobular septal thickening. Thickening of the adrenal glands suggests adrenal hyperplasia. There is moderate colonic fecal retention. Unremarkable soft tissues. There are a few subacute to chronic appearing anterior left-sided rib fractures. Degenerative changes of the shoulders and spine. IMPRESSION: 1. Cardiomegaly with mild interstitial pulmonary edema and moderate layering pleural effusions. 2. Dependent bibasilar consolidation suggests compressive atelectasis. 3. No pulmonary emboli. ACT 112: Negative or not required by law. The above report was generated using voice recognition software. It may contain grammatical, syntax or spelling errors. Electronically signed by: Pino Childress M.D. 03/05/2022 2:51 PM EKG - pacing Code Status & VTE Plan Code Status full code PG Care Time/CCT Total # of Minutes Spent Total Time Spent with Patient: Total time spent is greater than 50% in coordination of care (as documented) at patient's floor/unit and/or counseling patient: Coding Level of Care Code INT OBSERVATION CARE 70M LVL 3 Diagnoses Status post placement of cardiac pacemaker Z95.0 Second degree Mobitz II AV block I44.1 Acute on chronic heart failure with preserved ejection fraction I50.33 Acute respiratory failure with hypoxia J96.01 Bilateral pleural effusion J90 Constipation K59.00 RAIN (acute kidney injury) N17.9 Controlled type 2 diabetes mellitus E11.9 Chronic kidney disease, stage 3 (moderate) N18.30 Chronic kidney disease stage 3 subtype: unspecified whether 3a or 3b Depression F32.9 Depression Type: major depressive disorder Major depression recurrence: unspecified whether recurrent Active/Remission status: remission status unspecified (1) Chronic kidney disease, stage 3 (moderate) Chronic kidney disease stage 3 subtype: unspecified whether 3a or 3b Qualified Code(s): N18.30 - Chronic kidney disease, stage 3 unspecified (2) Depression Depression Type: major depressive disorder Major depression recurrence: unspecified whether recurrent Active/Remission status: remission status unspecified Qualified Code(s): F32.9 - Major depressive disorder, single episode, unspecified
[2022-03-05] MEDS ORDERED: NITROGLYCERIN SL 0.4 MG/TAB TAB SL PRN (19:32)
[2022-03-05] MEDS ORDERED: ONDANSETRON INJ 2 MG/ML 2 ML VIAL IV PRN (19:32)
[2022-03-05] MEDS ORDERED: ACETAMINOPHEN 325 MG TAB PO PRN (19:32)
[2022-03-05] MEDS ORDERED: ALBUTEROL HFA 8 GM INHALER INH PRN (19:32)
[2022-03-05] MEDS: ATORVASTATIN 40 MG TAB PO SCH (20:54)
[2022-03-05] MEDS: POLYETHYLENE (MIRALAX) 17 GM PACK PO SCH (20:54)
[2022-03-05] MEDS: MIRTAZAPINE TAB 15 MG TAB PO SCH (20:54)
[2022-03-05] MEDS: OLANZAPINE 2.5 MG TAB PO SCH (20:54)
[2022-03-05] MEDS: OLANZapine 10 MG TAB PO SCH (20:54)
[2022-03-05] MEDS ORDERED: CARBOHYDRATES FOR HYPOGLYCEMIA PO PRN (21:45)
[2022-03-05] MEDS ORDERED: DEXTROSE 50% 50 ML SYRINGE IV PRN (21:45)
[2022-03-05] MEDS ORDERED: GLUCOSE 10 TABS/TUBE PO PRN (21:45)
[2022-03-05] MEDS ORDERED: GLUCAGON FOR INJ 1 MG VIAL IM PRN (21:45)
[2022-03-05] MEDS ORDERED: GLUCOSE 40% GEL 15 GM TUBE PO PRN (21:45)
[2022-03-06 06:44] LABS: BUN Creatinine Ratio 30.5 (10-20); Calcium 9.6 mg/dl (8.5-10.1); Creatinine Clr Calc Pharmacy 40.4 ml/min; Est GFR (African American) 64.2 ml/min; Est GFR (Non-African American) 55.4 ml/min; Potassium 4.3 mmol/L (3.5-5.1)
[2022-03-06] MEDS: INSULIN ASPART PER UNIT SC SCH ×4 (08:58→21:08)
[2022-03-06] MEDS: ENOXAPARIN INJ 40 MG/0.4 ML SYR SQ SCH (09:00)
[2022-03-06] MEDS: CLOPIDOGREL BISULFATE 75 MG TAB PO SCH (09:00)
[2022-03-06] MEDS: SENNA 8.6 MG TAB PO SCH (09:00)
[2022-03-06] MEDS ORDERED: lisinopril 10 MG TAB PO SCH (09:00)
[2022-03-06] MEDS: VENLAFAXINE HCL XR 150 MG CAPXR PO SCH (09:01)
[2022-03-06] MEDS: amLODIPine BESYLATE 5 MG TAB PO SCH (09:01)
[2022-03-06] MEDS: TOCOPHERYL, DL-ALPHA 400 UNITS 180 MG CAP PO SCH (09:01)
[2022-03-06] MEDS: METOPROLOL SUCC 50MG EXT REL TAB PO SCH (09:01)
[2022-03-06] MEDS: CHOLECALCIFEROL 1,000 UNITS 25 MCG TAB PO SCH (09:02)
[2022-03-06] MEDS: CYANOCOBALAMIN (B-12) 2,500 MCG TABLET SL SCH (09:02)
[2022-03-06] MEDS: POLYETHYLENE (MIRALAX) 17 GM PACK PO SCH ×3 (09:02→21:07)
[2022-03-06] MEDS: FUROSEMIDE 40 MG/4 ML VIAL IV SCH ×2 (09:02→17:25)
--- NOTE | 2022-03-06 14:45 | XRay Report ---
XR chest 2V PA/lateral CLINICAL HISTORY: CHF/effusions; eval size of effusions. COMPARISON STUDY: 03/05/2022 TECHNIQUE: 2 views of the chest FINDINGS: Frontal and lateral radiographs of the chest demonstrate the cardiomediastinal silhouette to be withi n normal limits. Permanent cardiac pacer is in place. There has been almost complete resolution of pr eviously identified vascular congestion. Small bilateral pleural effusions are present, left greater than right with persistent left basilar atelectasis. No confluent alveolar opacity are identified. Th ere is no acute osseous pathology. IMPRESSION: 1. Almost complete resolution of vascular congestion. 2. Small bilateral pleural effusions, left greater than right with left basilar atelectasis. ACT 112: Negative or not required by law. Electronically signed by: Fermin Salinas M.D. 03/06/2022 2:44 PM
--- NOTE | 2022-03-06 19:57 | Hospitalist Progress Note ---
Date of Service March 06, 2022 Assessment & Plan (1) Acute on chronic heart failure with preserved ejection fraction: Plan: acute component improved. cont lasix 40mg IV BID. cont BB. tighten BP control - increase lisinopril 10mg BID. daily weights. limit fluid intake to 1500cc/day. (2) Status post placement of cardiac pacemaker: Plan: 02/26/22 - Dr Weinstein, 2nd to high-degree AV block. Repeat interrogation wnl with good pacer function, no dysrhythmia, etc. (3) Second degree Mobitz II AV block: Plan: as above (4) Acute respiratory failure with hypoxia: Plan: 2nd to #1 NC O2 cont to diurese other supportive measures (5) Bilateral pleural effusion: Plan: 2nd decompensated CHF repeat cxr today - improved effusions cont to monitor if O2 requirement continues consider u/s to check volume and eval for thoracentesis (6) Constipation: Plan: senna + miralax BID (7) RAIN (acute kidney injury): Plan: 2nd to recent decompensated CHF, AV block, diuretics, etc. resolved. BMP am. (8) Controlled type 2 diabetes mellitus: Plan: 02/22/22 - HbA1C 5.5%. Novolog SSI. BSGs ac/hs. (9) Chronic kidney disease, stage 3 (moderate): Plan: baseline Creatinine low 1's daily BMP while being diuresed (10) Depression: Plan: with h/o hospitalization for such cont all home meds Plan: DVT proph - heparin SC grandson updated at bedside today left message for daughter Siobhan on her voicemail this evening needs PT/OT evals due to recent weakness Admission and Anticipated Discharge Date Admission Date: March 06, 2022 Subjective tele - 100% paced overnight pacer interrogation - no abnormal rhythms; 100% v-paced pt feeling better today less dyspnea eating well grandson at bedside Review of Systems Review of Systems: gen - energy ok, no fevers cv - no chest pain, no orthopnea pulm - less dyspnea, no cough GI - no abd pain, vomiting, nausea Physical Exam Physical Exam: gen - NAD, looks good today neck - no JVD heart - RRR, s1 s2 lungs - decreased BS bases, otherwise CTA b/l abd - soft NT ND BS+ ext - trace edema b/l, pulses 2+ b/l psych - a/o x 3 Results & Data Results & Data ([facility]) Vital Signs (Past 12 Hours) Vital Signs Temp Pulse Pulse Resp BP Pulse Ox 03/06/22 19:22 36.6 C 83 20 105/71 100 03/06/22 15:48 36.8 C 62 20 157/76 H 97 03/06/22 14:29 71 03/06/22 11:23 36.5 C 62 20 133/72 97 03/06/22 07:57 36.4 C L 61 20 159/74 H 97 Laboratory Results Laboratory Results - last 24 hr 03/05/22 03/06/22 03/06/22 20:03 05:37 07:44 Sodium 133 L Potassium 4.3 Chloride 94 L Carbon Dioxide 35 H Anion Gap 4 BUN 29 H Creatinine 0.95 Est Cr Clr Drug Dosing 40.4 Est GFR ( Amer) 64.2 Est GFR (Non-Af Amer) 55.4 BUN/Creatinine Ratio 30.5 H Glucose 94 POC Glucose 135 H 109 H Calcium 9.6 03/06/22 03/06/22 11:13 16:31 Sodium Potassium Chloride Carbon Dioxide Anion Gap BUN Creatinine Est Cr Clr Drug Dosing Est GFR ( Amer) Est GFR (Non-Af Amer) BUN/Creatinine Ratio Glucose POC Glucose 99 88 Calcium PG Care Time/CCT Total # of Minutes Spent Total Time Spent with Patient: Total time spent is greater than 50% in coordination of care (as documented) at patient's floor/unit and/or counseling patient: Coding Level of Care Code 99636 Subseq Hosp Care Lvl 2 Diagnoses Acute on chronic heart failure with preserved ejection fraction I50.33 Status post placement of cardiac pacemaker Z95.0 Second degree Mobitz II AV block I44.1 Acute respiratory failure with hypoxia J96.01 Bilateral pleural effusion J90 Constipation K59.00 RAIN (acute kidney injury) N17.9 Controlled type 2 diabetes mellitus E11.9 Chronic kidney disease, stage 3 (moderate) N18.30 Chronic kidney disease stage 3 subtype: unspecified whether 3a or 3b Depression F32.9 Active/Remission status: remission status unspecified Depression Type: major depressive disorder Major depression recurrence: unspecified whether recurrent (1) Chronic kidney disease, stage 3 (moderate) Chronic kidney disease stage 3 subtype: unspecified whether 3a or 3b Raghu lified Code(s): N18.30 - Chronic kidney disease, stage 3 unspecified (2) Depression Active/Remission status: remission status unspecified Depression Type: major depressive disorder Major depression recurrence: unspecified whether recurrent Qualified Code(s): F32.9 - Major depressive disorder, single episode, unspecified
[2022-03-06] MEDS: MIRTAZAPINE TAB 15 MG TAB PO SCH (21:06)
[2022-03-06] MEDS: OLANZapine 10 MG TAB PO SCH (21:06)
[2022-03-06] MEDS: ATORVASTATIN 40 MG TAB PO SCH (21:06)
[2022-03-06] MEDS: OLANZAPINE 2.5 MG TAB PO SCH (21:06)
[2022-03-06] MEDS: lisinopril 10 MG TAB PO SCH (21:07)
--- NOTE | 2022-03-06 21:10 | Electrocardiogram Report ---
Test Reason : Blood Pressure : / mmHG Vent. Rate : 063 BPM Atrial Rate : 063 BPM P-R Int : 200 ms QRS Dur : 162 ms QT Int : 442 ms P-R-T Axes : 061 110 -37 degrees QTc Int : 452 ms AV dual-paced rhythm Abnormal ECG When compared with ECG of 26-FEB-2022 16:07, Vent. rate has decreased BY 18 BPM Confirmed by Tonio Tomlin ([id number]) on 03/06/2022 9:10:39 PM Referred By: Confirmed By:Tonio Tomlin
[2022-03-07 08:15] LABS: BUN Creatinine Ratio 30.6 (10-20); Calcium 9.3 mg/dl (8.5-10.1); Est GFR (Non-African American) 47.4 ml/min; Magnesium 2.1 mg/dl (1.7-2.4); Potassium 4.1 mmol/L (3.5-5.1)
[2022-03-07] MEDS: CHOLECALCIFEROL 1,000 UNITS 25 MCG TAB PO SCH (08:15)
[2022-03-07] MEDS: lisinopril 10 MG TAB PO SCH (08:15)
[2022-03-07] MEDS: amLODIPine BESYLATE 5 MG TAB PO SCH (08:15)
[2022-03-07] MEDS: CLOPIDOGREL BISULFATE 75 MG TAB PO SCH (08:15)
[2022-03-07] MEDS: SENNA 8.6 MG TAB PO SCH (08:15)
[2022-03-07] MEDS: TOCOPHERYL, DL-ALPHA 400 UNITS 180 MG CAP PO SCH (08:16)
[2022-03-07] MEDS: CYANOCOBALAMIN (B-12) 2,500 MCG TABLET SL SCH (08:16)
[2022-03-07] MEDS: VENLAFAXINE HCL XR 150 MG CAPXR PO SCH (08:16)
[2022-03-07] MEDS: ENOXAPARIN INJ 40 MG/0.4 ML SYR SQ SCH (08:17)
[2022-03-07] MEDS: METOPROLOL SUCC 50MG EXT REL TAB PO SCH (08:17)
[2022-03-07] MEDS: POLYETHYLENE (MIRALAX) 17 GM PACK PO SCH ×2 (08:17→20:01)
[2022-03-07] MEDS: FUROSEMIDE 40 MG/4 ML VIAL IV SCH ×2 (08:18→17:36)
[2022-03-07] MEDS ORDERED: lisinopril 10 MG TAB PO STA (08:39)
[2022-03-07] MEDS: INSULIN ASPART PER UNIT SC SCH ×4 (08:55→19:57)
[2022-03-07] MEDS: OLANZapine 10 MG TAB PO SCH (20:02)
[2022-03-07] MEDS: ATORVASTATIN 40 MG TAB PO SCH (20:02)
[2022-03-07] MEDS: MIRTAZAPINE TAB 15 MG TAB PO SCH (20:04)
[2022-03-07] MEDS: lisinopril 20 MG TAB PO SCH (20:04)
[2022-03-07] MEDS: OLANZAPINE 2.5 MG TAB PO SCH (20:55)
--- NOTE | 2022-03-07 21:09 | Hospitalist Progress Note ---
Date of Service March 07, 2022 Assessment & Plan (1) Acute on chronic heart failure with preserved ejection fraction: Plan: grade 2 diastolic dysfunction on echo 01/2022. acute component improved. weight today <160 pounds - best weight in quite some time. cont lasix 40mg IV BID. cont BB. tighten BP control - increase lisinopril again to 20mg BID. daily weights. limit fluid intake to 1500cc/day. (2) Status post placement of cardiac pacemaker: Plan: 02/26/22 - Dr Weinstein, 2nd to high-degree AV block. Repeat interrogation wnl with good pacer function, no dysrhythmia, etc. (3) Second degree Mobitz II AV block: Plan: as above (4) Acute respiratory failure with hypoxia: Plan: 2nd to #1 nearly resolved cont to wean NC O2 cont to diurese other supportive measures (5) Bilateral pleural effusion: Plan: 2nd decompensated CHF repeat cxr yesterday - improved effusions cont to monitor if O2 requirement continues consider u/s to check volume and eval for thoracentesis (6) Constipation: Plan: senna + miralax BID (7) RAIN (acute kidney injury): Plan: 2nd to recent decompensated CHF, AV block, diuretics, etc. resolved. BMP am. (8) Controlled type 2 diabetes mellitus: Plan: 02/22/22 - HbA1C 5.5%. Novolog SSI. BSGs ac/hs. (9) Chronic kidney disease, stage 3 (moderate): Plan: baseline Creatinine low 1's daily BMP while being diuresed (10) Depression: Plan: with h/o hospitalization for such cont all home meds Plan: DVT proph - lovenox daily daughter Siobhan updated at bedside today PT and OT evals done - ok for home - HH advised Admission and Anticipated Discharge Date Admission Date: March 06, 2022 Subjective pt "feels good" denies any new complaints dyspnea much improved no orthopnea or PND overnight eating well ambulating and getting around well denies any dizziness tele - pacing 100% of the time daughter at bedside Review of Systems Review of Systems: gen - no fevers, good appetite cv - no chest pain pulm - no cough; occasional [place] GI - no nausea, emesis Physical Exam Physical Exam: gen - NAD, looks great today neck - no JVD heart - RRR, s1 s2 lungs - decreased BS bases, otherwise CTA b/l; no rales, no wheezing abd - soft NT ND BS+ ext - trace edema b/l, pulses 2+ b/l; mild varicose veins b/l legs psych - a/o x 3 skin - left upper chest - incision well-healed, scant resolving ecchymoses; no hematoma Results & Data Results & Data ([facility]) Vital Signs (Past 12 Hours) Vital Signs Temp Pulse Resp BP Pulse Ox 03/07/22 18:34 36.5 C 62 20 126/74 100 03/07/22 15:02 36.3 C L 66 18 147/78 H 97 03/07/22 11:45 36.4 C L 61 19 133/69 97 Laboratory Results Laboratory Results - last 24 hr 03/07/22 03/07/22 03/07/22 07:07 07:34 11:37 Sodium 136 Potassium 4.1 Chloride 95 L Carbon Dioxide 36 H Anion Gap 5 BUN 33 H Creatinine 1.08 Est Cr Clr Drug Dosing 35.0 Est GFR ( Amer) 55.0 Est GFR (Non-Af Amer) 47.4 BUN/Creatinine Ratio 30.6 H Glucose 89 POC Glucose 98 124 H Calcium 9.3 Magnesium 2.1 03/07/22 03/07/22 16:50 19:47 Sodium Potassium Chloride Carbon Dioxide Anion Gap BUN Creatinine Est Cr Clr Drug Dosing Est GFR ( Amer) Est GFR (Non-Af Amer) BUN/Creatinine Ratio Glucose POC Glucose 76 146 H Calcium Magnesium PG Care Time/CCT Total # of Minutes Spent Total Time Spent with Patient: Total time spent is greater than 50% in coordination of care (as documented) at patient's floor/unit and/or counseling patient: Coding Level of Care Code 57329 Subseq Hosp Care Lvl 2 Diagnoses Acute on chronic heart failure with preserved ejection fraction I50.33 Status post placement of cardiac pacemaker Z95.0 Second degree Mobitz II AV block I44.1 Acute respiratory failure with hypoxia J96.01 Bilateral pleural effusion J90 Constipation K59.00 RAIN (acute kidney injury) N17.9 Controlled type 2 diabetes mellitus E11.9 Chronic kidney disease, stage 3 (moderate) N18.30 Chronic kidney disease stage 3 subtype: unspecified whether 3a or 3b Depression F32.9 Active/Remission status: remission status unspecified Depression Type: major depressive disorder Major depression recurrence: unspecified whether recurrent (1) Chronic kidney disease, stage 3 (moderate) Chronic kidney disease stage 3 subtype: unspecified whether 3a or 3b Qualified Code(s): N18.30 - Chronic kidney disease, stage 3 unspecified (2) Depression Active/Remission status: remission status unspecified Depression Type: major depressive disorder Major depression recurrence: unspecified whether recurrent Qualified Code(s): F32.9 - Major depressive disorder, single episode, unspecifie d
[2022-03-08 06:58] LABS: Calcium 9.1 mg/dl (8.5-10.1); Est GFR (African American) 43.9 ml/min; Est GFR (Non-African American) 37.9 ml/min; Potassium 4.1 mmol/L (3.5-5.1)
[2022-03-08] MEDS: VENLAFAXINE HCL XR 150 MG CAPXR PO SCH (07:52)
[2022-03-08] MEDS: CLOPIDOGREL BISULFATE 75 MG TAB PO SCH (07:52)
[2022-03-08] MEDS: METOPROLOL SUCC 50MG EXT REL TAB PO SCH (07:52)
[2022-03-08] MEDS: FUROSEMIDE 40 MG/4 ML VIAL IV SCH ×2 (07:52→15:31)
[2022-03-08] MEDS: CYANOCOBALAMIN (B-12) 2,500 MCG TABLET SL SCH (07:53)
[2022-03-08] MEDS: SENNA 8.6 MG TAB PO SCH (07:53)
[2022-03-08] MEDS: CHOLECALCIFEROL 1,000 UNITS 25 MCG TAB PO SCH (07:53)
[2022-03-08] MEDS: lisinopril 20 MG TAB PO SCH ×2 (07:53→20:25)
[2022-03-08] MEDS: amLODIPine BESYLATE 5 MG TAB PO SCH (07:53)
[2022-03-08] MEDS: TOCOPHERYL, DL-ALPHA 400 UNITS 180 MG CAP PO SCH (07:53)
[2022-03-08] MEDS: ENOXAPARIN INJ 40 MG/0.4 ML SYR SQ SCH (07:54)
[2022-03-08] MEDS: POLYETHYLENE (MIRALAX) 17 GM PACK PO SCH ×2 (07:55→20:26)
[2022-03-08] MEDS: INSULIN ASPART PER UNIT SC SCH ×4 (08:03→20:35)
[2022-03-08] MEDS ORDERED: METOPROLOL SUCC 25MG EXT REL TAB PO STA (08:10)
--- NOTE | 2022-03-08 14:23 | Ultrasound Report ---
DOPPLER ULTRASOUND OF THE RENAL ARTERIES CLINICAL HISTORY: Malignant hypertension. COMPARISON STUDY: No priors TECHNIQUE: Doppler sonography of the renal arteries was performed to assess renal artery stenosis. Im ages are reviewed in the transverse and longitudinal planes. FINDINGS: The kidneys demonstrate mild cortical atrophy and are without hydronephrosis. The right kidney measur es 10.1 cm in length and the left kidney measures 9.0 cm in length. On the right, intrarenal arterial resistive indices range from 0.77 to 1.0. Intrarenal arterial wavef orms are normal with brisk upstrokes. There are elevated velocities within the proximal right renal a rtery which measure up to 412 cm/sec. There is blunted arterial upstroke in the distal right renal ar tao. The right renal vein is patent. On the left, intrarenal arterial resistive indices range from 0.52 to 1.0. Intrarenal arterial wavef orms are normal with brisk upstrokes. There are elevated velocities within the proximal to mid portio ns of the left renal artery measure up to 347 cm/s The left renal vein is patent. The abdominal aorta is patent. Velocities within the abdominal aorta measure up to 69 cm/s. IMPRESSION: There are elevated velocities identified in both renal arteries as above indicating renal artery stenosis. ACT 112: Negative or not required by law. Electronically signed by: Sebastian Aguilar M.D. 03/08/2022 2:22 PM
[2022-03-08] MEDS: OLANZapine 10 MG TAB PO SCH (20:23)
[2022-03-08] MEDS: ATORVASTATIN 40 MG TAB PO SCH (20:23)
[2022-03-08] MEDS: MIRTAZAPINE TAB 15 MG TAB PO SCH (20:23)
[2022-03-08] MEDS: OLANZAPINE 2.5 MG TAB PO SCH (20:24)
--- NOTE | 2022-03-08 20:29 | Hospitalist Progress Note ---
Date of Service March 08, 2022 Assessment & Plan (1) Acute on chronic heart failure with preserved ejection fraction: Plan: grade 2 diastolic dysfunction on echo 01/2022. acute component improved. suspect we are about at euvolemia. no JVD on exam today; creatinine starting to trend up. d/c IV lasix after tonight's dose. repeat BMP am. daily weights. limit fluid intake to 1500cc/day. uncontrolled HTN certainly will contribute to decompensated diastolic CHF. it appears she has renal artery stenosis. see below. (2) Status post placement of cardiac pacemaker: Plan: 02/26/22 - Dr Weinstein, 2nd to high-degree AV block. Repeat interrogation this admission wnl with good pacer function, no dysrhythmia, etc. She is pacing 100% of the time on telemetry. (3) Second degree Mobitz II AV block: Plan: as above (4) Acute respiratory failure with hypoxia: Plan: 2nd to #1 o2 sats on 2 L NC O2 are high 90s however, if the cannula is removed, apparently she desats to <88% 2nd to pleural effusions? but most recent cxr showed that these are improved consider pulmonary consultation to check size of the effusions and, if they remain larger enough, thoracentesis? (has had thoracentesis in the past) if effusions are small and if pulm edema is resolved - cause of ongoing O2 requirement?? no pulmonary HTN on most recent echo no PEs on CTA chest OHS? (5) Bilateral pleural effusion: Plan: 2nd decompensated CHF at least based on my exam the R sided effusion has gotten smaller as the airation at the R base is fairly good; mildly decreased BS on the left consider pulm consultation if O2 requirement continues (to check volume of those effusions) (6) Constipation: Plan: senna + miralax BID resolved (7) RAIN (acute kidney injury): Plan: 2nd to recent decompensated CHF, AV block, diuretics, etc. had resolved. now creatinine starting to trend back up again suggesting we are approaching euvolemia or even slightly intra-vascularly volume contracted. stop IV lasix after today's doses. BMP am. (8) Controlled type 2 diabetes mellitus: Plan: 02/22/22 - HbA1C 5.5%. Novolog SSI. BSGs ac/hs. (9) Chronic kidney disease, stage 3 (moderate): Plan: baseline Creatinine low 1's daily BMP (10) Depression: Plan: with h/o hospitalization for such cont all home meds (11) Renal artery stenosis: Plan: renal artery duplex studies with very high velocities in both arteries suggesting of YVONNE renal-aortic ratios also quite high at some point will need CTAs to look at the renals if high-grade stenosis is present will need vascular evaluation YVONNE could easily be contributing to refractory HTN -- is on complex regimen of meds for HTN including metoprolol xl, amlodipine, lisinopril, lasix (12) Essential hypertension: Plan: see #11 Plan: DVT proph - lovenox daily daughter Siobhan updated at bedside once again today PT and OT karli done - ok for home - HH advised anticipate d/c home this weekend Admission and Anticipated Discharge Date Admission Date: March 06, 2022 Subjective pt states she feels good denies dyspnea at rest or with exertion good energy eating well no cough no orthopnea or PND walking to the bathroom independently still requiring a little NC O2 (2 L) pacing on monitor 100% of the time daughter, Siobhan, at bedside Review of Systems Review of Systems: gen - eating well, no fevers, good energy cv - no cp, orthopnea, or dizziness; no edema pulm - no cough or dyspnea GI - no abd pain Physical Exam Physical Exam: gen - NAD, looks great once again today neck - no JVD heart - RRR, s1 s2 lungs - decreased BS left base only; otherwise CTA b/l; no rales, no wheezing, no increased work of breathing abd - soft NT ND BS+ ext - less than trace edema b/l, pulses 2+ b/l; mild varicose veins b/l legs psych - a/o x 3 skin - left upper chest - incision well-healed, scant resolving ecchymoses; no hematoma Results & Data Results & Data ([facility]) Vital Signs (Past 12 Hours) Vital Signs Temp Pulse Pulse Resp BP Pulse Ox 03/08/22 18:38 37.0 C 56 L 20 145/70 H 98 03/08/22 15:18 36.3 C L 60 18 136/74 96 03/08/22 15:06 65 03/08/22 11:20 36.9 C 63 18 147/69 H 93 Laboratory Results Laboratory Results - last 24 hr 03/08/22 03/08/22 03/08/22 06:18 07:33 11:30 Sodium 136 Potassium 4.1 Chloride 96 L Carbon Dioxide 38 H Anion Gap 2 L BUN 39 H Creatinine 1.30 H Est Cr Clr Drug Dosing 29.0 Est GFR ( Amer) 43.9 Est GFR (Non-Af Amer) 37.9 BUN/Creatinine Ratio 30.0 H Glucose 88 POC Glucose 105 H 126 H Calcium 9.1 03/08/22 03/08/22 16:56 20:17 Sodium Potassium Chloride Carbon Dioxide Anion Gap BUN Creatinine Est Cr Clr Drug Dosing Est GFR ( Amer) Est GFR (Non-Af Amer) BUN/Creatinine Ratio Glucose POC Glucose 140 H 179 H Calcium PG Care Time/CCT Total # of Minutes Spent Total Time Spent with Patient: Total time spent is greater than 50% in coordination of care (as documented) at patient's floor/unit and/or counseling patient: Coding Level of Care Code 85359 Subseq Hosp Care Lvl 2 Diagnoses Acute on chronic heart failure with preserved ejection fraction I50.33 Status post placement of cardiac pacemaker Z95.0 Second degree Mobitz II AV block I44.1 Acute respiratory failure with hypoxia J96.01 Bilateral pleural effusion J90 Constipation K59.00 RAIN (acute kidney injury) N17.9 Controlled type 2 diabetes mellitus E11.9 Chronic kidney disease, stage 3 (moderate) N18.30 Chronic kidney disease stage 3 subtype: unspecified whether 3a or 3b Depression F32.9 Active/Remission status: remission status unspecified Depression Type: major depressive disorder Major depression recurrence: unspecified whether recurrent Renal artery stenosis I70.1 Essential hypertension I10 (1) Chronic kidney disease, stage 3 (moderate) Chronic kidney disease stage 3 subtype: unspecified whether 3a or 3b Qualified Code(s): N18.30 - Chronic kidney disease, stage 3 unspecified (2) Depression Active/Remission status: remission status unspecified Depression Type: major depressive disorder Major depression recurrence: unspecified whether recurrent Qualified Code(s): F32.9 - Major depressive disorder, single episode, unspecified
[2022-03-09 07:18] LABS: BUN Creatinine Ratio 35.5 (10-20); Calcium 9.1 mg/dl (8.5-10.1); Creatinine Clr Calc Pharmacy 35.3 ml/min; Est GFR (African American) 55.6 ml/min; Potassium 3.8 mmol/L (3.5-5.1)
[2022-03-09] MEDS: CLOPIDOGREL BISULFATE 75 MG TAB PO SCH (07:31)
[2022-03-09] MEDS: lisinopril 20 MG TAB PO SCH ×2 (07:31→21:06)
[2022-03-09] MEDS: CHOLECALCIFEROL 1,000 UNITS 25 MCG TAB PO SCH (07:31)
[2022-03-09] MEDS: METOPROLOL SUCC 25MG EXT REL TAB PO SCH (07:32)
[2022-03-09] MEDS: VENLAFAXINE HCL XR 150 MG CAPXR PO SCH (07:32)
[2022-03-09] MEDS: SENNA 8.6 MG TAB PO SCH (07:32)
[2022-03-09] MEDS: TOCOPHERYL, DL-ALPHA 400 UNITS 180 MG CAP PO SCH (07:32)
[2022-03-09] MEDS: CYANOCOBALAMIN (B-12) 2,500 MCG TABLET SL SCH (07:32)
[2022-03-09] MEDS: amLODIPine BESYLATE 5 MG TAB PO SCH (07:33)
[2022-03-09] MEDS: INSULIN ASPART PER UNIT SC SCH ×4 (07:33→21:07)
[2022-03-09] MEDS: POLYETHYLENE (MIRALAX) 17 GM PACK PO SCH ×2 (07:33→21:06)
[2022-03-09] MEDS ORDERED: POTASSIUM CHLORIDE CRTAB 20 MEQ TABCR PO STA (07:47)
[2022-03-09] MEDS ORDERED: FUROSEMIDE 40 MG/4 ML VIAL IV ONE (07:47)
--- NOTE | 2022-03-09 08:24 | Pulmonary Consultation ---
Date of Consultation March 09, 2022 Assessment & Plan (1) Bilateral pleural effusion: (2) Acute respiratory failure with hypoxia: (3) Acute exacerbation of CHF (congestive heart failure): Heart failure type: unspecified Qualified Code(s): I50.9 - Heart failure, unspecified (4) Hypercapnic respiratory failure: Impression: 81-year-old female admitted with diastolic heart failure found to have pleural effusions. She been diuresed but continues to have an intermittent oxygen requirement although review of the EMR demonstrates that her oxygen saturations are fairly consistently above 96%. Recommend aggressively weaning oxygen and targeting an oxygen saturation around 90%. She does have effusions however is currently on Plavix and ideally for an elective thoracentesis would like her to be off Plavix for 5 days. Recommendations: 1. Pleural effusions: Suspect related to diastolic heart failure. Her intake and output is not accurate in the electronic medical record. Her BUN is slightly elevated as is her bicarb however serum creatinine remained stable. Would like the patient off of Plavix for an elective procedure for at least 5 days if possible. Review of her electronic medical record does not indicate a clear indication for the Plavix although I suspect it may be related to TIAs. If the medication can be discontinued, the patient can be reassessed in the outpatient setting to see whether or not thoracentesis might be indicated at that time. For now would recommend continue diuretics. 2. Chronic hypercapnic respiratory failure: Suspect this is likely contributing to the patient's hypoxemia. She is established with Dr. Bellamy in the outpatient setting and would defer additional management to him. Chest wall abnormalities, interstitial lung disease/parenchymal abnormalities, and neuromuscular disorders would all be in the differential. Her pH demonstrates that this is a longstanding issue and she is well compensated. 3. Diastolic heart failure: We will try and target blood pressure less than 125/75. Continue diuretics as tolerated. 4. Acute on chronic hypoxemic respiratory failure: Continue supplemental oxygen titrated for an oxygen saturation around 90%. There is no benefit from targeting oxygen saturations higher than this. The above recommendations and plan were extensively discussed with patient at bedside. She is in agreement to not pursue invasive procedures currently and wishes to continue medical management. Thanks for the opportunity participating in the care of this patient. Feel free to contact us with additional questions or concerns. Will sign off for now. History of Present Illness Attending Physician: Erik Bailey History of Present Illness Asked by hospitalist to evaluate this patient with hypoxemia and pleural effusions. History is obtained from reviewed electronic medical record as well as discussion with the patient. The patient is an 81-year-old female with a history of diastolic heart failure. She was admitted end of January for heart failure exacerbation and diuresed. She was readmitted to the facility March 05 and has undergone diuresis but has persistent oxygen requirement. X-rays showed blunting of the costophrenic angle and there was concern about potential pleural effusion contributing to the patient's symptoms. The patient reports that she is doing well clinically. She is currently sitting up in a chair having just eaten breakfast. She does not complain of any s ignificant shortness of breath. She does not use oxygen at baseline. She denies any history of trauma. No fevers chills night sweats. She denies chest pain palpitations or significant lower extremity edema. Patient did undergo thoracentesis back in 2018.. This appeared to be a borderline exudate. Cannot find cytology. Allergies Allergy/AdvReac Type Severity Reaction Status Date / Time bacitracin Allergy Unknown UNKNOWN Verified 03/05/22 12:31 neomycin Allergy Unknown Unknown Verified 03/05/22 12:31 [From Neosporin ([id number])] polymyxin B Allergy Unknown UNKNOWN Verified 03/05/22 12:31 adhesive AdvReac Mild RED AND Verified 03/05/22 12:31 ITCHY Bandaid Allergy Mild red and Uncoded 03/05/22 12:31 itchy Home Medications Medication Instructions Recorded Confirmed Type lancets 30 gauge (OneTouch Delpeter #25 ea 05/04/19 01/01/22 History Lancets) cholecalciferol (vitamin D3) 50 2,000 units PO QAM tab 06/21/19 03/05/22 History mcg (2,000 unit) tablet albuterol sulfate 90 mcg/actuation 2 puffs INH Q6H PRN 09/17/19 03/05/22 History aerosol inhaler (Ventolin HFA) mecobalamin (vitamin B12) 5,000 2,500 mcg PO QAM tab 03/27/21 03/05/22 History mcg disintegrating tablet vitamin E (dl, acetate) 180 mg 45 mg PO QAM 03/27/21 03/05/22 History (400 unit) capsule metformin 500 mg tablet 500 mg PO BID #180 tab 05/07/21 03/05/22 Rx mirtazapine 15 mg tablet 15 mg PO HS 07/03/21 03/05/22 History olanzapine 10 mg tablet (Zyprexa) 10 mg PO HS tab 07/03/21 03/05/22 History venlafaxine 150 mg 300 mg PO QAM cap 07/03/21 03/05/22 History capsule,extended release 24 hr methylphenidate HCl 10 mg tablet 10 mg PO TID tab 08/15/21 03/05/22 History (Ritalin) olanzapine 2.5 mg tablet 2.5 mg PO HS 01/01/22 03/05/22 History OneTouch Ultra Test (blood sugar #100 ea NS 01/03/22 Rx diagnostic) furosemide 40 mg tablet 40 mg PO DAILY PRN #30 tab 02/20/22 03/05/22 Rx atorvastatin 40 mg tablet 40 mg PO HS 02/21/22 03/05/22 History polyethylene glycol 3350 17 gram 17 g PO BID 30 Days #60 ea 02/27/22 03/05/22 Rx oral powder packet (Miralax) amlodipine 10 mg tablet 10 mg PO QAM 03/05/22 03/05/22 History clopidogrel 75 mg tablet 75 mg PO QAM 03/05/22 03/05/22 History lisinopril 10 mg tablet 10 mg PO QAM 03/05/22 03/05/22 History metoprolol succinate 50 mg 50 mg PO QAM 03/05/22 03/05/22 History tablet,extended release 24 hr Patient History Medical History (Updated 03/09/22 @ 08:51 by Lenin Perez MD) Anemia Arthritis Carotid artery stenosis Cerumen impaction Chronic kidney disease, stage 3 (moderate) Depression Diabetes mellitus, type II Diabetic retinopathy, nonproliferative Dyslipidemia ETD (eustachian tube dysfunction) History of skin cancer Melanoma Mixed conductive and sensorineural hearing loss of right ear with restricted hearing of left ear No family history of adverse response to anesthesia Obesity, morbid, BMI 40.0-49.9 Pleural effusion Sensorineural hearing loss of both 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) Trauma of upper extremity Vitamin D deficiency Surgical History History of cataract surgery History of dilatation and curettage History of ear surgery approx 1984 Hx of tonsillectomy 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 - Tapan Weinstein MD - 02/2022 Family History Family/Other Family history of coronary arteriosclerosis Depression Mother Cardiovascular disease Diabetes Other Family history of bleeding disorder No family history of adverse response to anesthesia Social History (Updated 03/05/22 @ 17:29 by Erik Bailey) Smoking Status: Former smoker Tobacco Type: Cigarettes packs per day: 1; Years Smoked: 50; Hx Alcohol Use: No Hx Substance Use: No Preferred Language: Turkmen Communication Ability: Effective Hearing Ability: Hard of Hearing Director Of Direct Marketing Required: No Beliefs That Will Affect Care: None marital status: / Current Living Situation: Family Current Living Situation Comment: house current occupational status: retired current occupation: worked in the [employer] How many Children do You have: 2 Other Information That Helps Us Care for You: No Feels Safe at Home: Yes Safety Concerns: Feels Safe At This Time caffeine: Yes during the past year weight has: decreased > 10 lbs Do you think of yourself as: straight/heterosexual Gender Identity: Female Assistive Devices: None Assistive Devices Comment: no glasses with her doesn't wear dentures Review of Systems Review of Systems: All systems reviewed & are unremarkable except as noted in Subjective Physical Exam Constitutional: WD/WN, vitals as above Neck: trachea midline, no thyromegaly Respiratory: normal respiratory effort, lungs clear to auscultation Cardiovascular: RRR, no murmur, no edema Gastrointestinal (Abdomen): normal bowel sounds, soft, nontender, no hepatosplenomegaly Musculoskeletal: Extremities: extremities normal to inspection Skin: no rashes, warm and dry Neurologic: Nonfocal exam Lymphatic: no cervical lymphadenopathy Results & Data Results & [facility] ([facility]) Vital Signs (Past 12 Hours) Vital Signs Temp Pulse Resp BP Pulse Ox 03/08/22 23:13 36.6 C 62 18 161/79 H 99 Critical Care Results & Data Vital Signs (Past 12 Hours) Vital Signs Temp Pulse Resp BP Pulse Ox 03/08/22 23:13 36.6 C 62 18 161/79 H 99 Lab & Micro Results (Past 24 Hours) No Data to Display Na 136 mmol/L (136-145) 03/09/22 K 3.8 mmol/L (3.5-5.1) 03/09/22 Cl 97 mmol/L (98-107) L 03/09/22 CO2 34 mmol/L (21-32) H 03/09/22 Anion Gap 5 (3-11) 03/09/22 BUN 38 mg/dl (6-23) H 03/09/22 Creatinine 1.07 mg/dl (0.6-1.2) 03/09/22 Estimated GFR ( Amer) 55.6 ml/min 03/09/22 Estimated GFR (Non-Af Amer) 48.0 ml/min 03/09/22 BUN/Creatinine Ratio 35.5 (10-20) H 03/09/22 Glu 82 mg/dl (70-99(Fasting)) 03/09/22 Ca 9.1 mg/dl (8.5-10.1) 03/09/22 Calcium Level 9.1 mg/dl (8.5-10.1) 03/09/22 06:21 03/09/22 Diagnostic Findings (Past 24 Hours) Renal Artery Duplex 03/08/22 11:19 DOPPLER ULTRASOUND OF THE RENAL ARTERIES CLINICAL HISTORY: Malignant hypertension. COMPARISON STUDY: No priors TECHNIQUE: Doppler sonography of the renal arteries was performed to assess renal artery stenosis. Images are reviewed in the transverse and longitudinal planes. FINDINGS: The kidneys demonstrate mild cortical atrophy and are without hydronephrosis. The right kidney measures 10.1 cm in length and the left kidney measures 9.0 cm in length. On the right, intrarenal arterial resistive indices range from 0.77 to 1.0. Intrarenal arterial waveforms are normal with brisk upstrokes. There are elevated velocities within the proximal right renal artery which measure up to 412 cm/sec. There is blunted arterial upstroke in the distal right renal artery. The right renal vein is patent. On the left, intrarenal arterial resistive indices range from 0.52 to 1.0. Intrarenal arterial waveforms are normal with brisk upstrokes. There are elevated velocities within the proximal to mid portions of the left renal artery measure up to 347 cm/s The left renal vein is patent. The abdominal aorta is patent. Velocities within the abdominal aorta measure up to 69 cm/s. IMPRESSION: There are elevated velocities identified in both renal arteries as above indicating renal artery stenosis. ACT 112: Negative or not required by law. Electronically signed by: Sebastian Aguilar M.D. 03/08/2022 2:22 PM Echocardiogram performed 02/22/2022 showed an EF of 60 to 65% with mild mitral regurgitation. Concentric LVH is noted. No wall motion abnormalities. Borderline atrial enlargement. Grade 2 diastolic dysfunction I & O Totals 24 Hours 03/08/22 03/09/22 03/10/22 06:59 06:59 06:59 Intake Total 1360 / 1360 1515 / 1515 Balance 1360 / 1360 1515 / 1515 Cumulative 03/05/22 10:31 thru 03/09/22 06:22 Intake Total 4130 Balance 4130 RT Ventilator Mngmt (Last Documented) Ventilator Ordered Settings Respiratory Rate 18 03/08/22 23:13 Ventilator - PT Measurements Respiratory Rate 18 PG Care Time/CCT Total # of Minutes Spent Total Time Spent with Patient: Total time spent is greater than 50% in coordination of care (as documented) at patient's floor/unit and/or counseling patient: Coding Level of Care Code 94269 Initial Inpt Care Lvl 3 Diagnoses Bilateral pleural effusion J90 Acute respiratory failure with hypoxia J96.01 Acute exacerbation of CHF (congestive heart failure) I50.9 Heart failure type: unspecified Hypercapnic respiratory failure J96.92
[2022-03-09] MEDS ORDERED: hydrALAZINE HCL 25 MG TAB PO STA (13:45)
--- NOTE | 2022-03-09 19:35 | Hospitalist Progress Note ---
Date of Service March 09, 2022 Assessment & Plan (1) Acute on chronic heart failure with preserved ejection fraction: Plan: grade 2 diastolic dysfunction on echo 01/2022. acute component resolved. looks euvolemic today. gave lasix 60mg IV x 1 today but no further doses. repeat BMP am. daily weights. limit fluid intake to 1500cc/day. uncontrolled HTN certainly will contribute to decompensated diastolic CHF. it appears she has renal artery stenosis. see below. (2) Status post placement of cardiac pacemaker: Plan: 02/26/22 - Dr Weinstein, 2nd to high-degree AV block. Repeat interrogation this admission wnl with good pacer function, no dysrhythmia, etc. She had been pacing 100% of the time on telemetry. Tele stopped. (3) Second degree Mobitz II AV block: Plan: as above (4) Acute respiratory failure with hypoxia: Plan: 2nd to #1 resolved O2 weaned off O2 sats with walking also appear to be normal consider formal 2-step to be complete before d/c (5) Bilateral pleural effusion: Plan: 2nd decompensated CHF Dr Perez from pulmonary saw in consult effusions are small, and patient is on plavix - thus, thoracentesis deferred follow clinically (6) Constipation: Plan: senna + miralax BID resolved (7) RAIN (acute kidney injury): Plan: 2nd to recent decompensated CHF, AV block, diuretics, etc. resolved Cr 1 today BMP am. (8) Controlled type 2 diabetes mellitus: Plan: 02/22/22 - HbA1C 5.5%. Novolog SSI. BSGs ac/hs. (9) Chronic kidney disease, stage 3 (moderate): Plan: stage 3b baseline Creatinine low 1's baseline CrCl 30s daily BMP (10) Depression: Plan: with h/o hospitalization for such cont all home meds (11) Renal artery stenosis: Plan: renal artery duplex studies with very high velocities in both arteries suggesting of YVONNE renal-aortic ratios also quite high at some point will need CTAs to look at the renals if high-grade stenosis is present will need vascular evaluation YVONNE could easily be contributing to refractory HTN -- is on complex regimen of meds for HTN including metoprolol xl, amlodipine, lisinopril, lasix and now hydralazine no changes to meds today follow (12) Essential hypertension: Plan: see #11 Plan: DVT proph - lovenox daily lane Mccann updated at bedside once again today PT and OT evals done - ok for home - HH advised anticipate d/c home tomorrow after am labs are checked Admission and Anticipated Discharge Date Admission Date: March 06, 2022 Subjective pt "feeling really good" no dyspnea at rest or with exertion during my visit O2 had been weaned off with sats mid-90s in RA pt took a walk - O2 sats remained greater than 90% with walking in room air no cough no dizziness no chest symptoms eating well wants to go home lane [facility]ccann at bedside Review of Systems Review of Systems: gen - no fevers, good energy, good appetite cv - no orthopnea, no edema pulm - no cough, congestion, dyspnea, wheeze abd - no nausea, emesis, pain Physical Exam Physical Exam: gen - NAD, looks great once again today neck - no JVD heart - RRR, s1 s2 lungs - decreased BS left base only (minimal); otherwise CTA b/l; no rales, no wheezing, no increased work of breathing abd - soft NT ND BS+ ext - NO edema b/l, pulses 2+ b/l; mild varicose veins b/l legs psych - a/o x 3 skin - left upper chest - incision well-healed, scant ecchymoses; no hematoma Results & Data Results & Data ([facility]) Vital Signs (Past 12 Hours) Vital Signs Temp Pulse Resp BP Pulse Ox 03/09/22 18:17 36.7 C 58 L 18 167/76 H 92 03/09/22 16:16 97 03/09/22 16:15 95 03/09/22 16:14 92 03/09/22 16:13 90 03/09/22 16:12 91 03/09/22 16:11 92 03/09/22 16:10 94 03/09/22 14:00 36.6 C 76 18 146/73 H 95 03/09/22 09:00 93 Laboratory Results Laboratory Results - last 24 hr 03/08/22 03/09/22 03/09/22 20:17 06:21 07:33 Sodium 136 Potassium 3.8 Chloride 97 L Carbon Dioxide 34 H Anion Gap 5 BUN 38 H Creatinine 1.07 Est Cr Clr Drug Dosing 35.3 Est GFR ( Amer) 55.6 Est GFR (Non-Af Amer) 48.0 BUN/Creatinine Ratio 35.5 H Glucose 82 POC Glucose 179 H 96 Calcium 9.1 03/09/22 03/09/22 11:31 16:35 Sodium Potassium Chloride Carbon Dioxide Anion Gap BUN Creatinine Est Cr Clr Drug Dosing Est GFR ( Amer) Est GFR (Non-Af Amer) BUN/Creatinine Ratio Glucose POC Glucose 97 113 H Calcium PG Care Time/CCT Total # of Minutes Spent Total Time Spent with Patient: Total time spent is greater than 50% in coordination of care (as documented) at patient's floor/unit and/or counseling patient: Coding Level of Care Code 54669 Subseq Hosp Care Lvl 2 Diagnoses Acute on chronic heart failure with preserved ejection fraction I50.33 Status post placement of cardiac pacemaker Z95.0 Second degree Mobitz II AV block I44.1 Acute respiratory failure with hypoxia J96.01 Bilateral pleural effusion J90 Constipation K59.00 RAIN (acute kidney injury) N17.9 Controlled type 2 diabetes mellitus E11.9 Chronic kidney disease, stage 3 (moderate) N18.30 Chronic kidney disease stage 3 subtype: unspecified whether 3a or 3b Depression F32.9 Active/Remission status: remission status unspecified Depression Type: major depressive disorder Major depression recurrence: unspecified whether recurrent Renal artery stenosis I70.1 Essential hypertension I10 (1) Chronic kidney disease, stage 3 (moderate) Chronic kidney disease stage 3 subtype: unspecified whether 3a or 3b Qualified Code(s): N18.30 - Chronic kidney disease, stage 3 unspecified (2) Depression Active/Remission status: remission status unspecified Depression Type: major depressive disorder Major depression recurrence: unspecified whether recurrent Qualified Code(s): F32.9 - Major depressive disorder, single episode, unspecified
[2022-03-09] MEDS: OLANZapine 10 MG TAB PO SCH (21:04)
[2022-03-09] MEDS: OLANZAPINE 2.5 MG TAB PO SCH (21:04)
[2022-03-09] MEDS: MIRTAZAPINE TAB 15 MG TAB PO SCH (21:04)
[2022-03-09] MEDS: ATORVASTATIN 40 MG TAB PO SCH (21:06)
[2022-03-09] MEDS: hydrALAZINE HCL 25 MG TAB PO SCH (21:07)
[2022-03-09] MEDS ORDERED: hydrALAZINE HCL 20 MG/ML VIAL IV STA (22:19)
[2022-03-10] MEDS: hydrALAZINE HCL 25 MG TAB PO SCH (07:12)
[2022-03-10] MEDS: METOPROLOL SUCC 25MG EXT REL TAB PO SCH (07:13)
[2022-03-10] MEDS: lisinopril 20 MG TAB PO SCH (07:13)
[2022-03-10] MEDS: CYANOCOBALAMIN (B-12) 2,500 MCG TABLET SL SCH (07:13)
[2022-03-10] MEDS: TOCOPHERYL, DL-ALPHA 400 UNITS 180 MG CAP PO SCH (07:13)
[2022-03-10] MEDS: VENLAFAXINE HCL XR 150 MG CAPXR PO SCH (07:13)
[2022-03-10] MEDS: CLOPIDOGREL BISULFATE 75 MG TAB PO SCH (07:13)
[2022-03-10] MEDS: CHOLECALCIFEROL 1,000 UNITS 25 MCG TAB PO SCH (07:13)
[2022-03-10] MEDS: POLYETHYLENE (MIRALAX) 17 GM PACK PO SCH (07:14)
[2022-03-10] MEDS: amLODIPine BESYLATE 5 MG TAB PO SCH (07:14)
[2022-03-10] MEDS: SENNA 8.6 MG TAB PO SCH (07:15)
[2022-03-10] MEDS: INSULIN ASPART PER UNIT SC SCH ×3 (08:11→16:36)
[2022-03-10 09:12] LABS: Hematocrit (blood only) 30.4 % (37-47); Mean Corpuscular Hemoglobin 27.4 pg (25-34); Mean Corpuscular Hgb Conc 32.9 g/dL (32-36); Mean Corpuscular Volume 83.3 fL (80-100); Mean Platelet Volume 9.8 fL (7.4-10.4); Platelet Count 308 K/uL (130-400); RDW Coefficient of Variation 16.7 % (11.5-14.5); RDW Standard Deviation 50.7 fL (36.4-46.3); Red Blood Count 3.65 M/uL (4.2-5.4); White Blood Count 13.45 K/uL (4.8-10.8)
[2022-03-10 09:29] LABS: Calcium 8.9 mg/dl (8.5-10.1); Creatinine Clr Calc Pharmacy 29.6 ml/min; Est GFR (African American) 45.6 ml/min; Est GFR (Non-African American) 39.4 ml/min; Potassium 4.1 mmol/L (3.5-5.1)
[2022-03-10 09:47] LABS: Ferritin 180.1 ng/ml (8-388)
[2022-03-10 13:06] LABS: Appearance Urine Clear (Clear); Bacteria Urine Automated Negative (Negative); Bilirubin Urine Negative (Negative); Blood Urine Negative (Negative); Cast Urine Automated 0 /lpf (0-5); Color Urine Yellow; Glucose Urine UA Negative (Negative); Ketones Urine Negative (Negative); Leukocyte Esterase Urine Trace (Negative); Nitrite Urine Negative (Negative); Protein Urine 2+ (Negative); RBC Urine Automated 0-4 /hpf (0-4); Urobilinogen Urine Negative (Negative); pH Urine 5.5 (4.5-7.5)
[2022-03-10] MEDS ORDERED: hydrALAZINE HCL 25 MG TAB PO SCH ×2 (14:00→21:00)
[2022-03-10 14:42] LABS: Basophils # (auto) 0.02 K/uL (0-0.2); Basophils % (auto) 0.2 %; Eosinophils # (auto) 0.15 K/uL (0-0.5); Eosinophils % (auto) 1.3 %; Hematocrit (blood only) 29.4 % (37-47); Hemoglobin 9.6 g/dL (12.0-16.0); Immature Granulocytes # (auto) 0.05 K/uL (0.00-0.02); Immature Granulocytes % (auto) 0.4 %; Lymphocytes # (auto) 0.46 K/uL (1.2-3.4); Mean Corpuscular Hemoglobin 27.7 pg (25-34); Mean Corpuscular Hgb Conc 32.7 g/dL (32-36); Mean Corpuscular Volume 84.7 fL (80-100); Monocytes # (auto) 0.68 K/uL (0.11-0.59); Monocytes % (auto) 5.9 %; Neutrophils # (auto) 10.11 K/uL (1.4-6.5); Neutrophils % (auto) 88.2 %; Platelet Count 278 K/uL (130-400); RDW Coefficient of Variation 16.7 % (11.5-14.5); RDW Standard Deviation 51.6 fL (36.4-46.3); Red Blood Count 3.47 M/uL (4.2-5.4); White Blood Count 11.47 K/uL (4.8-10.8)
[2022-03-10] MEDS ORDERED: hydrALAZINE HCL 25 MG TAB PO ONE (16:17)
--- NOTE | 2022-03-10 16:56 | Discharge Summary ---
Date of Service date of admission - March 05, 2022 date of discharge - March 10, 2022 Admission HPI Per Admitting Provider 81yo female with h/o chronic diastolic CHF and recent hospitalization for decompensated CHF 2nd to development of high-grade AV block (Mobitz 2) s/p permanent pacemaker placement presents with ongoing dyspnea on exertion beginning shortly after arrival home. Patient's daughter is at bedside during the encounter and states that upon return home her mother's o2 sats were low 90s in RA at rest. However, with activity, O2 sats would drop to the 80s. This trend continued over the last few days. Denies cough, fever, anorexia or dyspnea at rest. She has had orthopnea and has been sleeping in a chair at an angle in the living room since her hospital discharge. Overnight her daughter checked her O2 sats at rest and they registered 70s prompting the ER visit. She has been compliant with lasix 40mg daily. Weights have been 163 to 164 pounds. Principal Diagnosis 1. acute/chronic diastolic CHF 2. poor-controlled HTN - slowly improving 3. suspected renal artery stenosis 4. acute hypoxic respiratory failure 2nd to #1 - resolved, off O2 completely 5. recent permanent pacemaker placement for Mobitz 2 & 3rd degree AV block Discharge Exam gen - NAD, looks great neck - no JVD mouth - MM slightly dry heart - RRR, s1 s2, 1/6 ENRICO LSB lungs - scantly decreased BS left base only; otherwise CTA b/l; no rales, no wheezing, no increased work of breathing abd - soft NT ND BS+ ext - NO edema b/l, pulses 2+ b/l; mild varicose veins b/l legs psych - a/o x 3 skin - left upper chest - incision well-healed, ecchymoses resolved; no hematoma Discharge Data Allergies Allergy/AdvReac Type Severity Reaction Status Date / Time bacitracin Allergy Unknown UNKNOWN Verified 03/05/22 12:31 neomycin Allergy Unknown Unknown Verified 03/05/22 12:31 [From Neosporin ([id number])] polymyxin B Allergy Unknown UNKNOWN Verified 03/05/22 12:31 adhesive AdvReac Mild RED AND Verified 03/05/22 12:31 ITCHY Bandaid Allergy Mild red and Uncoded 03/05/22 12:31 itchy Consultations [facility] PT OT Procedures Performed Pacemaker interrogation - 100% paced, no arrhythmia events Ordered Studies Chest X-Ray 03/05/22 11:08 SINGLE VIEW CHEST CLINICAL HISTORY: Atypical chest pain FINDINGS: An AP, portable, upright chest radiograph is compared to study dated 02/27/2022 and correlated with chest CT dated 02/21/2022. A 2-lead cardiac pacemaker is unchanged in position and partially obscures the left mid chest. The heart is enlarged noting atherosclerotic calcification of the thoracic aorta. There is pulmonary vessel congestion. There are layering pleural effusions with dependent consolidation. No pneumothorax is seen. The skeletal structures are osteopenic. The bony thorax is grossly intact. IMPRESSION: 1. Cardiomegaly and cardiac pacemaker with evidence of congestive failure. 2. Layering pleural effusions with dependent consolidation. ACT 112: Negative or not required by law. Electronically signed by: Sebastian Aguilar M.D. 03/05/2022 11:35 AM Chest CTA 03/05/22 13:55 CT angio chest PE protocol CT DOSE: 553.08 mGycm HISTORY: 81 years-old Female with ro PE. Acute shortness of breath with recent pacemaker placement TECHNIQUE: Multiple CTA images of the chest were obtained after the intravenous administration of 120 ml Optiray. Coronal and sagittal MIPS were obtained from the axial data set and were submitted for review. All measurements were obtained according to NASCET criteria. A dose lowering technique was utilized adhering to the principles of ALARA. COMPARISON: Chest radiograph of same day, CTA chest 02/21/2022 and also 10/13/2017. FINDINGS: CTA: Moderate to marked cardiomegaly with cardiac pacer. Extensive [place] coronary artery calcifications. Atherosclerosis of the thoracic aorta without aneurysm or dissection. Dilated pulmonary artery suggestive of pulmonary artery hypertension. No filling defects identified to suggest thromboembolic disease. CT CHEST: Unremarkable thyroid. No pathologically enlarged lymph nodes. Moderate layering pleural effusions. No pneumothorax. Moderate pulmonary emphysema with bronchial wall thickening. Dependent bibasilar consolidation. There are a few scattered low suspicion solid pulmonary nodules measuring up to 4 mm which are unchanged. The central airways are patent mild intralobular septal thickening. Thickening of the adrenal glands suggests adrenal hyperplasia. There is moderate colonic fecal retention. Unremarkable soft tissues. There are a few subacute to chronic appearing anterior left-sided rib fractures. Degenerative changes of the shoulders and spine. IMPRESSION: 1. Cardiomegaly with mild interstitial pulmonary edema and moderate layering pleural effusions. 2. Dependent bibasilar consolidation suggests compressive atelectasis. 3. No pulmonary emboli. ACT 112: Negative or not required by law. The above report was generated using voice recognition software. It may contain grammatical, syntax or spelling errors. Electronically signed by: Pino Childress M.D. 03/05/2022 2:51 PM Chest X-Ray 03/06/22 12:46 XR chest 2V PA/lateral CLINICAL HISTORY: CHF/effusions; eval size of effusions. COMPARISON STUDY: 03/05/2022 TECHNIQUE: 2 views of the chest FINDINGS: Frontal and lateral radiographs of the chest demonstrate the cardiomediastinal silhouette to be within normal limits. Permanent cardiac pacer is in place. There has been almost complete resolution of previously identified vascular congestion. Small bilateral pleural effusions are present, left greater than right with persistent left basilar atelectasis. No confluent alveolar opacity are identified. There is no acute osseous pathology. IMPRESSION: 1. Almost complete resolution of vascular congestion. 2. Small bilateral pleural effusions, left greater than right with left basilar atelectasis. ACT 112: Negative or not required by law. Electronically signed by: Fermin Salinas M.D. 03/06/2022 2:44 PM Renal Artery Duplex 03/08/22 11:19 DOPPLER ULTRASOUND OF THE RENAL ARTERIES CLINICAL HISTORY: Malignant hypertension. COMPARISON STUDY: No priors TECHNIQUE: Doppler sonography of the renal arteries was performed to assess renal artery stenosis. Images are reviewed in the transverse and longitudinal planes. FINDINGS: The kidneys demonstrate mild cortical atrophy and are without hydronephrosis. The right kidney measures 10.1 cm in length and the left kidney measures 9.0 cm in length. On the right, intrarenal arterial resistive indices range from 0.77 to 1.0. Intrarenal arterial waveforms are normal with brisk upstrokes. There are elevated velocities within the proximal right renal artery which measure up to 412 cm/sec. There is blunted arterial upstroke in the distal right renal artery. The right renal vein is patent. On the left, intrarenal arterial resistive indices range from 0.52 to 1.0. Intrarenal arterial waveforms are normal with brisk upstrokes. There are elevated velocities within the proximal to mid portions of the left renal artery measure up to 347 cm/s The left renal vein is patent. The abdominal aorta is patent. Velocities within the abdominal aorta measure up to 69 cm/s. IMPRESSION: There are elevated velocities identified in both renal arteries as above indicating renal artery stenosis. ACT 112: Negative or not required by law. Electronically signed by: Sebastian Aguilar M.D. 03/08/2022 2:22 PM Hospital Course (1) Acute on chronic heart failure with preserved ejection fraction: Grade 2 diastolic dysfunction on echo 01/2022. Diuresed her entire stay with at least 10+ pounds of weight loss while here. Discharge weight was ~70 Kg (154 pounds). She appeared slightly volume contracted on day of discharge. O2 was weaned off, and O2 sats with walking were checked on multiple occasions and were >90% in room air. Recent AV block, uncontrolled HTN, and dietary indiscretion all likely to blame for her decompensated CHF over the last 2+ weeks. At discharge she is on a complex HTN regimen and likely will need 40mg of PO lasix daily. Daily weights, salt restriction, fluid restriction, checking BPs at home, etc all discussed. Written CHF instructions given. She will follow-up with [facility] - within 5 days of discharge. Post-discharge blood work will be checked at the 48-hour jack. (2) Dyspnea on exertion: Despite placement of recent pacemaker for high-degree AV block, aggressive diuresis for decompensated CHF, and CT chest showing no PEs or pneumonia the patient still had dyspnea on exertion late in her stay. O2 sats with walking on day of discharge were >90%. No supplemental O2 was needed. Although she is deconditioned (given her two ygti-gj-[id number] hospitalizations) and this will cause dyspnea I am concerned she could have another process that might explain this symptom. She has known, high-grade carotid stenosis - and now probable renal artery stenosis. This increases the likelihood she could have undiagnosed CAD. If latter is present perhaps her dyspnea is from such. I spoke with her about this concern and I asked her to discuss possible stress testing when she sees Ms Quintana in the CHF clinic. (3) Status post placement of cardiac pacemaker: 02/26/22 - Dr Tapan Weinstein, 2nd to high-degree AV block. Repeat interrogation this admission wnl with good pacer function, no dysrhythmia, etc. She was pacing 100% of the time on telemetry. Incision is well-healed at time of discharge. She was advised to continue left arm restrictions for 2 more weeks post- discharge. (4) Second degree Mobitz II AV block: as above s/p permanent pacemaker placement 02/26/22. (5) Acute respiratory failure with hypoxia: 2nd to #1 - resolved. O2 weaned off by discharge. O2 sats with walking normal on day of discharge. see #2 above re: dyspnea on exertion. (6) Bilateral pleural effusion: 2nd decompensated CHF. Dr Mohsen Perez from pulmonary saw in consult while here. By the time of his consultation the effusions were small, and patient is on plavix - thus, thoracentesis deferred. follow clinically as outpatient. (7) Constipation: senna + miralax BID resolved (8) RAIN (acute kidney injury): 2nd to recent decompensated CHF, AV block, diuretics, etc. Peak Cr 1.3 Discharge Cr 1 to 1.2 In light of fluctuating creatinine and fluctuating sodium levels and complex BP med regimen I advised repeat blood work 48 hours post discharge before resuming diuretic therapy. (9) Controlled type 2 diabetes mellitus: 02/22/22 - HbA1C 5.5%. Well controlled throughout the stay. Resume metformin at discharge. (10) Chronic kidney disease, stage 3 (moderate): stage 3b baseline Creatinine low 1's baseline CrCl 30s repeat BMP 48 hours post-discharge (11) Depression: with h/o hospitalization for such in the past follows with Dr Jayden Rivero - psychiatry cont all home meds as previous (12) Renal artery stenosis: renal artery duplex studies with very high velocities in both arteries suggestive of YVONNE renal-aortic ratios also quite high at some point will need CTAs to look at the renals but deferred during this stay due to fluctuating creatinine and CrCl levels if high-grade stenosis is confirmed on CTA or MRA will need vascular evaluation YVONNE could easily be contributing to refractory HTN -- is on complex regimen of meds for HTN including metoprolol xl, amlodipine, lisinopril, and now hydralazine (along with lasix) she has scheduled f/u with her primary gang punch operator, Dr Marek Lee, within 2 weeks of discharge (13) Essential hypertension: see #11 above (14) Hyponatremia: 03/10/22 - discharge Na level was 130; corrected for hyperglycemia was 133. Low sodium was 2nd to diuretic therapy. Will have repeat BMP 48 hours post-discharge to ensure stability of sodium level. Home Health Attestation I certify that this patient is under my care and that I, or a physicians zoning assistant working with me, had a face to-face encounter that meets the home health [id number] encounter requirements with this patient. The encounter with the patient was in whole, or in part, for the following medical condition, which is the primary reason for home health care (list medical condition): CHF I certify that, based on my findings, the following services are medically necessary home health services: My clinical findings support the need for the above services because: Skilled Nsg Assessment Skilled Nsg Assess Pt Illness, Disease and Sx Monitoring Further, I certify that my clinical findings support that this patient is homebound (i.e. absences from home require considerable and taxing effort and are for medical reasons or druze services or infrequently or of short duration when for other reasons) because: Poor Endurance; SOB Minimal Exertion Certification for Home Health Services: Based on the above findings, I certify that this patient is confined to the home and needs intermittent [facility] care, physical therapy and/or speech therapy or continues to need occupational therapy. The patient is under my care, and I have initiated the establishment of the plan of care. This patient will be followed by a physician who will periodically review the plan of care. Total Time Total Time Spent Total Time Spent (In Minutes): 60 Discharge Plan Discharge Items Patient Disposition: Home - Home Health Services Reason For Visit: ACUTE/CHRONIC CONGESTIVE HEART FAILURE Discharge Diagnosis: 1. Acute on chronic congestive heart failure with build-up of fluid in the lungs - MUCH improved. 2. Recent pacemaker placement. 3. High blood pressure. 4. Suspected renal artery stenosis. Activity: As commented below Activity Comment: Do not lift left arm above your head or behind your neck/back x 2 weeks Bathing Comment: ok to shower at this time Non-emergency contact: Primary Care Provider, Substation Manager and Acute Dialysis Registered Nurse Call non-emergency contact if: you have any medication questions and your symptoms worsen Follow-up/Referrals: Garrett Hill PA-C [Physician Forepart [place]] - 03/27/22 1:00 pm (Pacemaker check ) Marek Lee MD [Physician] - 03/21/22 1:00 pm (discuss high blood pressure, renal artery stenosis ) Tab Bellamy MD [Primary Care Provider] - 03/20/22 2:30 pm Kinza Quintana PA-C [Physician Forepart [place]] - 03/14/22 1:30 pm (CHF clinic) Diet: Carb Consistent or DM2 and Heart Healthy Fluids: 1800ml (7 cups) Diet Texture: Easy to Chew Ambulatory Orders: Basic Metabolic Panel (Routine) Timeframe: 20220312 Location: Determined by Patient Ordered By: Erik Bailey Complete Blood Count with Diff (Routine) Timeframe: 20220312 Location: Determined by Patient Ordered By: Erik Bailey Magnesium (Routine) Timeframe: 20220312 Location: Determined by Patient Ordered By: Erik Bailey Addtl Attending Provider Instructions: Mrs Alfaro, You were hospitalized for difficulty breathing. When you were admitted it appeared you were retaining water in your lungs from congestive heart failure. Throughout your stay we used intravenous diuretics to flush the water from the lungs. As this occurred your breathing improved and your need for oxygen ultimately went away. You lost at least 10 pounds of fluid/water weight - possibly more - and your weight at discharge is ~155 pounds. Also during the hospitalization we noted that your blood pressures were very hard to control. We made additional adjustments in your blood pressure medication. When individuals have to take large amounts of blood pressure medication we become concerned that other conditions could be contributing to the resistant high blood pressure. These conditions include - * renal artery stenosis (see handouts from [facility]) * sleep apnea (snoring during sleep which leads to apnea, or stoppage of breathing) * hyperaldosteronism (a hormonal condition) A renal artery doppler ultrasound showed that your kidney arteries may have plaque build-up in them (narrowing/blockages). This is called "renal artery stenosis." If you have this condition it could be contributing to your high blood pressure as well as your congestive heart failure. Recommendations - 1. high blood pressure medication regimen - * hydralazine 25mg THREE TIMES DAILY - new * metoprolol succinate 50mg ONCE DAILY * lisinopril 20mg TWICE DAILY * amlodipine 10mg ONCE DAILY Note that the hydralazine is NEW, and that the lisinopril is now 1/2 of the dose in the morning, and the other 1/2 is at bedtime. 2. for fluid / congestive heart failure - * please HOLD your furosemide TODAY as well as TOMORROW, 03/11/22 * have blood work drawn on 03/12/22 * likely that we will have you resume your furosemide water pill on Friday or Friday * again your discharge weight is about 155 pounds * check your weight on your own scale when you return home today * then check your weight EVERY morning thereafter * write these numbers down in a notebook * see congestive heart failure instructions below 3. Until you see Ms Quintana in the CHF clinic please check your blood pressure 3 times a day. Write these numbers down in a notebook. 4. Limit salt to no more than 2000mg in a 24 hour period. 5. Limit total fluid intake to about 1800cc in a 24 hour period. 6. blood work - please have this drawn sometime 03/12/22. 7. continue to restrict arm movements of the left arm due to recent pacemaker insertion. Do not raise the left arm above the level of the head, behind your neck, or behind your back. Do this for another 2 weeks. It is ok to shower at this time. 8. Home health services including physical therapy will be set up through [employer]. To be arranged this week. Follow-up - see separate section Return to [facility] if - * you have fevers over 100 degrees * you have worsening shortness of breath * you have chest pains * you have any concerns about your pacemaker site * any other concerns It was our pleasure to care for you at [facility]! Best wishes, - Dr Bailey Addtl Money Laundering Investigator Provider Instructions: Congestive Heart Failure Instructions: Call 911 and go to the Emergency Room if: * You have tightness or pain in your chest that does not go away with rest or Nitroglycerin * You are very short of breath even with rest Call your doctor if any of the following symptoms or problems start or get worse: * Shortness of breath or difficulty breathing * Wake up at night short of breath * Chest pain * Cough * Swelling of your hands, fee, or legs * More fatigued or tired with your normal activity * Palpitations - sudden fast heart beats WEIGHT * Weigh yourself every morning after using the bathroom. * Use the same scale. * Wear the same amount of clothing. * Write your weight down on your chart. * Call your doctor if you gain more than 2-3 pounds in 1-2 days. This is typically a sign of water weight gain from congestive heart failure. MEDICATIONS * Use this discharge instruction sheet for instructions. * Take your medications at the time your doctor ordered. * Do not skip a dose of your medicines. * If you miss a dose of medicine, take as soon as possible, but DO NOT DOUBLE A DOSE. * Read your medicine information when you get home. * Know all of the side effects of your medicine. * Call your doctor's office if you have any side effects. * Be sure all of your doctors know what medicine and herbs you take (including cold, flu, and herbal medicine). * Pain Medicine: If you do not get relief from your pain, please call your doctor for help. Take the following with you to your follow-up doctor appointments: * Weight Chart * Medication List * List of questions Do not drink excessive alcohol, beer or wine. Pending Studies at Discharge: Yes Studies:: 1. Renin and aldosterone levels (a hormone condition that, if present, can make blood pressure hard to control) 2. urine culture Stand-Alone Forms: My [facility] [place] [employer], Smoking Cessation Medications and DC Order Prescriptions: New hydralazine 25 mg Tablet 25 mg PO TID Qty: 90 RF: 2 Continued mirtazapine 15 mg tablet 15 mg PO HS RF: 0 olanzapine [Zyprexa] 10 mg tablet 10 mg PO HS RF: 0 methylphenidate HCl [Ritalin] 10 mg tablet 10 mg PO TID RF: 0 metformin 500 mg tablet 500 mg PO BID Qty: 180 RF: 3 (DME) OneTouch Ultra Test Strip See Rx Instructions .ROUTE .MEDSUPPLY Qty: 100 RF: 3 (DME) lancets [OneTouch Delica Lancets] 30 gauge misc See Dose Instructions .ROUTE .MEDSUPPLY Qty: 25 RF: 0 cholecalciferol (vitamin D3) 2,000 unit tablet 2,000 units PO QAM RF: 0 albuterol sulfate [Ventolin HFA] 90 mcg/actuation HFA aerosol inhaler 2 puffs INH Q6H PRN (Reason: SOB) RF: 0 olanzapine 2.5 mg tablet 2.5 mg PO HS RF: 0 venlafaxine 150 mg capsule,extended release 24hr 300 mg PO QAM RF: 0 mecobalamin (vitamin B12) 5,000 mcg tablet,disintegrating 2,500 mcg PO QAM RF: 0 vitamin E (dl, acetate) 400 unit capsule 45 mg PO QAM RF: 0 metoprolol succinate 50 mg tablet extended release 24 hr 50 mg PO QAM RF: 0 clopidogrel 75 mg tablet 75 mg PO QAM RF: 0 amlodipine 10 mg tablet 10 mg PO QAM RF: 0 furosemide 40 mg tablet 40 mg PO DAILY PRN (Reason: fluid/congestive heart/weight gain) Qty: 30 RF: 6 atorvastatin 40 mg tablet 40 mg PO HS RF: 0 polyethylene glycol 3350 [Miralax] 17 gram Powder In Packet 17 g PO BID 30 Days Qty: 60 RF: 0 Changed lisinopril 20 mg tablet 20 mg PO BID Qty: 60 RF: 2 Discharge Orders: Discharge Order (Routine); Ordered 03/10/22 Ordered By: Erik Bailey Admission Data Admit Date/Time: 03/06/22 19:05 Attending Provider: Erik Bailey Admit Provider: Erik Bailey Primary Care Provider: Tab Bellamy Other Providers: [facility] Fax ; Erik Bailey ; Lenin Perez Other Interventions: Discharge Summary Assessment (RN) Last Done: 03/10/22 17:06 Coding Level of Care Code D/C DAY MANAGEMENT >30 MINS Diagnoses Acute on chronic heart failure with preserved ejection fraction I50.33 Status post placement of cardiac pacemaker Z95.0 Second degree Mobitz II AV block I44.1 Acute respiratory failure with hypoxia J96.01 Bilateral pleural effusion J90 Constipation K59.00 RAIN (acute kidney injury) N17.9 Controlled type 2 diabetes mellitus E11.9 Chronic kidney disease, stage 3 (moderate) N18.30 Chronic kidney disease stage 3 subtype: unspecified whether 3a or 3b Depression F32.9 Active/Remission status: remission status unspecified Depression Type: major depressive disorder Major depression recurrence: unspecified whether recurrent Renal artery stenosis I70.1 Essential hypertension I10 Dyspnea on exertion R06.00 Hyponatremia E87.1
[2022-03-15 14:06] LABS: Renin Activity 6.08 ng/mL/h (0.25-5.82)
== END 2022-03-10 17:36 | disposition home health service (06) | DRG 291 ==
LOC: ED 10:31 → 2N 10:31

== ENCOUNTER 2022-06-09 07:37 | Inpatient (IN) ==
[2022-06-09] MEDS ORDERED: LIDOCAINE 1% LOCAL 20 ML VIAL INJ ONE (09:15)
[2022-06-09] MEDS ORDERED: ACETAMINOPHEN 500 MG TAB PO STA (09:15)
[2022-06-09] MEDS ORDERED: LIDOCAINE/EPINEPH/TETRACAINE 1 EA SYR EXT STA (09:15)
--- NOTE | 2022-06-09 09:51 | CT Scan Report ---
CT head/brain wo con CLINICAL HISTORY: 82 years-old Female with Fall w [facility]. Acute head trauma status post fall TECHNIQUE: Multiple axial CT images of the head were obtained without contrast. A dose lowering tech nique was utilized adhering to the principles of ALARA. CT DOSE: 537.48 mGy.cm COMPARISON: Head CT 02/21/2022, brain MRI 10/24/2021 FINDINGS: Small amount of acute subarachnoid hemorrhage is noted in the right sylvian fissure, image 12 series 2. There is no midline shift, intracranial mass, hydrocephalus, territorial ischemia or abnormal extr a-axial collection. Involutional changes. White matter hypodensities suggest chronic microvascular is chemic disease. Study is mildly motion degraded. Cerebral vascular calcifications. The calvarium is intact. Trace mastoid effusions. Hypoplastic frontal sinuses. Unremarkable soft tis sues. Prior bilateral lens repair. IMPRESSION: Small amount of acute subarachnoid hemorrhage within the right sylvian fissure. 24-hour follow-up head CT is recommended. ACT 112: Negative or not required by law. The above report was generated using voice recognition software. It may contain grammatical, syntax o r spelling errors. Electronically signed by: Pino Childress M.D. 06/09/2022 9:49 AM
[2022-06-09] MEDS ORDERED: amLODIPine BESYLATE 5 MG TAB PO ONE (10:14)
[2022-06-09] MEDS ORDERED: lisinopril 40 MG TAB PO STA (10:16)
[2022-06-09] MEDS ORDERED: hydrALAZINE HCL 25 MG TAB PO STA (10:17)
[2022-06-09] MEDS ORDERED: METOPROLOL SUCC 50MG EXT REL TAB PO STA (10:17)
[2022-06-09] MEDS ORDERED: AMPICILLIN/SULBACTAM SOD 3,000 MG in 0.9 % SODIUM CHLORIDE 100 ML IV STA (11:20)
[2022-06-09 11:28] LABS: Basophils # (auto) 0.05 K/uL (0-0.2); Eosinophils # (auto) 0.18 K/uL (0-0.50); Eosinophils % (auto) 3.7 %; Hematocrit (blood only) 33.7 % (34.1-44.9); Hemoglobin 10.9 g/dl (12.0-16.0); Immature Granulocytes # (auto) 0.02 K/uL (0.00-0.02); Immature Granulocytes % (auto) 0.4 %; Lymphocytes % (auto) 26.5 %; Mean Corpuscular Hgb Conc 32.3 g/dL (32.0-36.0); Mean Corpuscular Volume 80.2 fL (80.0-100.0); Mean Platelet Volume 12.2 fL (9.4-12.3); Monocytes # (auto) 0.48 K/uL (0.24-0.82); Monocytes % (auto) 9.8 %; Neutrophils # (auto) 2.87 K/uL (1.4-6.5); Neutrophils % (auto) 58.6 %; Platelet Count 259 K/uL (130-400); RDW Standard Deviation 52.4 fL (36.4-46.3)
[2022-06-09 11:37] LABS: iSTAT Creatinine 1.3 mg/dl (0.6-1.3); iSTAT Hemoglobin 12.6 g/dl (12.0-16.0); iSTAT Ionized Calcium 0.92 mmol/l (1.12-1.32); iSTAT Potassium 6.5 mmol/L (3.3-5.0)
[2022-06-09 11:39] LABS: Albumin Globulin Ratio 1.5 (0.9-2); BUN Creatinine Ratio 29.6 (10-20); Bilirubin,Total 0.3 mg/dl (0.2-1.0); Calcium 9.5 mg/dl (8.5-10.1); Creatinine Clr Calc Pharmacy 31.2 ml/min; Est GFR (African American) 45.7 ml/min; Est GFR (Non-African American) 39.5 ml/min; Globulin 2.7 gm/dl (2.5-4.0); Potassium 4.8 mmol/L (3.5-5.1); Total Protein 6.7 gm/dl (6.0-8.3)
[2022-06-09] MEDS ORDERED: OPTIRAY 300 100mL IV ONE (11:43)
--- NOTE | 2022-06-09 12:38 | CT Scan Report ---
CHEST CT WITH CONTRAST HISTORY: Acute chest and right-sided back pain status post trauma Trauma, R back pain TECHNIQUE: Multiaxial CT images of the chest were performed following the IV administration of 94 cc of Optiray. A dose lowering technique was utilized adhering to the principles of ALARA. COMPARISON: CT cervical spine of same day, CTA chest 06/05/2022, chest CT 10/07/2017, 07/22/2017. FINDINGS: Unremarkable thyroid. Nonspecific mildly enlarged subcarinal lymph nodes measure up to 10 mm, likely benign. Moderate to marked cardiomegaly with cardiac pacer. Extensive [place] coronary marlen ry calcifications. Trace pericardial effusion. Dilation of the pulmonary arteries suggestive of pulmo nary arterial hypertension. Atherosclerosis of the aorta without aneurysm. Mild left hemidiaphragmatic elevation. Mild pulmonary emphysema without pneumothorax. Mild subpleural reticulation of the upper lobes suggestive of scarring. There is a 4 mm solid nodule noted within th e superior segment of the left lower lobe, image 91 which in retrospect is unchanged. Evaluation of t he lungs is limited secondary to respiratory motion artifact. There are 2 subadjacent solid pulmonary nodules in the right lower lobe on image 134 measuring up to 4 mm. There is a suggested 6 cm solid n odule right lower lobe on image 200. These nodules overall are of low clinical suspicion as visualize d. Central airways are patent. Mild nonspecific wall thickening of the esophagus, most pronounced distally with mild diffuse gaseous distention. Moderate fecal retention of the colon. Mild nonspecific paravertebral edema of the upper thoracic spine. Degenerative changes of the spine and shoulders. Prominent bridging multilevel anter ior endplate predominant osteophytosis. Severe intervertebral disc space narrowing at T2-T3 and T3-T4 . Paravertebral edema is noted at these levels. No acute fracture or endplate erosion identified. Mil d mid thoracic dextroscoliosis. IMPRESSION: 1. Limited exam as above. No acute intrathoracic abnormality identified. 2. Mild paravertebral edema of the upper thoracic spine . No acute fracture or subluxation is identif ied. These findings are likely on a degenerative basis. An occult fracture is considered less likely. 3. Severe intervertebral disc space narrowing at T2-T3 and T3-T4. 4. Additional findings as above. ACT 112: Negative or not required by law. Electronically signed by: Pino Childress M.D. 06/09/2022 12:37 PM
--- NOTE | 2022-06-09 12:38 | CT Scan Report ---
CT cervical spine wo con CT DOSE: 1217.05 mGy.cm CLINICAL HISTORY: 82 years-old Female with Trauma. Acute posttraumatic neck pain COMPARISON: Chest CT of same day TECHNIQUE: Multiple axial CT images of the cervical spine were obtained without contrast. A dose low ering technique was utilized adhering to the principles of ALARA. FINDINGS: Multilevel degenerative changes include severe disc space narrowing at T2-T3 and T3-T4 with severe multilevel facet arthrosis. Demineralized appearance of the bones. Multilevel neural foramina l narrowing. Mild paravertebral edema. Upper thoracic spine. Partially imaged left subclavian pacer l swetha. Atherosclerosis of the carotid bulbs. No prevertebral edema. The visualized lung apices appear clear. IMPRESSION: 1. No acute cervical spine fracture or subluxation. 2. Mild nonspecific paravertebral edema of the upper thoracic spine without acute upper thoracic osse ous abnormality identified. Findings may be on a degenerative basis. Occult fracture is considered le ss likely. ACT 112: Negative or not required by law. The above report was generated using voice recognition software. It may contain grammatical, syntax o r spelling errors. Electronically signed by: Pino Childress M.D. 06/09/2022 12:37 PM
--- NOTE | 2022-06-09 13:19 | History & Physical Report ---
Date of Service June 09, 2022 Assessment & Plan (1) SAH (subarachnoid hemorrhage): Plan: - Head CT shows a small acute subarachnoid hemorrhage within the right sylvian fissure. - s/p mechanical fall. - Patient AAO x3 without any neuro deficits. - ED provider spoke with neurosurgery at [facility], who declined transfer. Given small size, they indicated surgical intervention would not presently be required and recommended keeping the patient here for observation with tight BP control and repeat head CT in 24 hours or sooner if patient develops neuro deficits or becomes unstable. - Patient to be admitted to the ICU with nicardipine gtt with goal SBP < 160. - CT tomorrow AM or sooner if neuro status worsens. - HOB 30 degrees at all times, neurochecks q1h, hold Plavix (last dose evening of 06/08). (2) Fall: Plan: - mechanical, at home this AM. - SAH as above. - Right elbow and right ear laceration repaired in ED, with 1 time dose of Unasyn given. - Tylenol, lidocaine for pain management. (3) Essential hypertension: Plan: - HTNsive on admisison SBP 200s in setting of missing all morning BP meds--lisin opril 20 gm BID, metoprolol 50 mg in AM, amlodipine 10 mg in AM, hydralazine 25 mg TID - Given all BP meds in ED-- repeat BP 180/60s. - Admit to ICU with nicardipine gtt with SBP goal < 160 in setting of SAH. (4) Renal artery stenosis: Plan: - Due for CTA to assess renal arteries this Friday. - Follows w/ Dr. Rowland for vascular. Dr. Lee for CKD, HTN. (5) Carotid artery stenosis: Plan: - Carotid U/S in April showed unchanged > 70% stenosis of R ICA, 50-69% stenosis of L ICA - Continue statin, holding Plavix for now given SAH. (6) Chronic kidney disease, stage 3 (moderate): Plan: - BUN, creatinine slightly elevated from baseline. - With renal artery stenosis, hypertension not well controlled despite being on 4 oral medications at home. - Continue to monitor renal function daily with aggressive hypertension management (7) Diabetes mellitus, type II: Plan: - On metformin, hold while admitted. - ICU hyperglycemic protol while in ICU. - Clear liquid diet now, advance will be on cc/DM2 diet. (8) Anemia: Plan: - Hgb 10.9, stable, of CKD. - Continue to monitor. (9) (HFpEF) heart failure with preserved ejection fraction: Plan: - Continue Lasix 20 mg daily, with additional 20 mg dose for total of 40 mg daily with s/s of hypervolemia. (10) Severe recurrent major depression with psychotic features: Plan: - Continue olanzapine, mirtazapeine, and venlafaxine. Plan - Admit to ICU for nicardipine gtt for tight BP control. - SCDs; no chemoppx in setting of acute SAH. - DNR/DNI. History of Present Illness Chief Complaint: fall at home this AM Primary Care Provider: Tab Bellamy MD Marge Alfaro is an 82-year-old female with past medical history significant for CAD, NIDA, HFpEF, HTN, DM, CKD, renal artery stenosis, TIA in 2017, and depression who presents today after falling at home this morning. She states she was getting out of bed, which is quite high off the ground and wearing a pair of socks when she got up too quickly and slipped, landing on her back and hitting the right side of her head. She does not specifically remember how she hit her head, but denies loss of consciousness. The fall is not precipitated by lightheadedness, dizziness, chest pain, palpitations, shortness of breath, or nausea/vomiting. She suffered a cut to her right elbow and right ear, therefore family called EMS to have her presented to ED for further evaluation. She is currently complaining of some right shoulder pain slight right-sided headache secondary to her fall, however without complaints, she is not having any visual disturbances, confusion, numbness, tingling, or weakness. Per EMS, she was reported to be hypertensive with a BP 240/120 in the field, upon presentation, she was hypertensive 201/59, otherwise vital signs within normal limits. Head CT shows a small acute subarachnoid hemorrhage within the right sylvian fissure. ED provider spoke with neurosurgery at [facility], who declined transfer. Given small size, indicate surgical intervention would not presently be required and recommended keeping the patient here for observation with tight BP control and repeat head CT in 24 hours or sooner if patient develops neuro deficits or becomes unstable. Patient did not take any of her morning BP meds, therefore she was given 10 mg amlodipine, 25 mg hydralazine, 40 mg lisinopril, and 50 mg metoprolol. BP rechecked, 182/50 1:30 PM. Labs otherwise significant for stable anemia with hemoglobin 10.9, POC potassium 6.5, suspect hemolyzation as it was 4.8 on presenting BMP. BUN 48, creatinine 1.25, both slightly elevated from baseline. Allergies Allergy/AdvReac Type Severity Reaction Status Date / Time bacitracin Allergy Unknown UNKNOWN Verified 06/09/22 14:39 neomycin Allergy Unknown Unknown Verified 06/09/22 14:39 [From Neosporin ([id number])] polymyxin B Allergy Unknown UNKNOWN Verified 06/09/22 14:39 adhesive AdvReac Mild RED AND Verified 06/09/22 14:39 ITCHY Bandaid Allergy Mild red and Uncoded 06/09/22 14:39 itchy Home Medications Medication Instructions Recorded Confirmed Type lancets 30 gauge (Aava MobileTouch Delpeter #25 ea 05/04/19 06/04/22 History Lancets) cholecalciferol (vitamin D3) 50 2,000 units PO QAM 06/21/19 06/09/22 History mcg (2,000 unit) tablet mecobalamin (vitamin B12) 5,000 2,500 mcg PO QAM 03/27/21 06/04/22 History mcg disintegrating tablet vitamin E (dl, acetate) 180 mg 45 mg PO QAM 03/27/21 06/04/22 History (400 unit) capsule mirtazapine 15 mg tablet 15 mg PO HS 07/03/21 06/04/22 History olanzapine 10 mg tablet (Zyprexa) 10 mg PO HS 07/03/21 06/04/22 History venlafaxine 150 mg 300 mg PO QAM 07/03/21 06/04/22 History capsule,extended release 24 hr methylphenidate HCl 10 mg tablet 10 mg PO TID 08/15/21 06/04/22 History (Ritalin) olanzapine 2.5 mg tablet 2.5 mg PO HS 01/01/22 06/04/22 History OneTouch Ultra Test (blood sugar #100 ea 01/03/22 06/04/22 Rx diagnostic) atorvastatin 40 mg tablet 40 mg PO HS 02/21/22 06/09/22 History amlodipine 10 mg tablet 10 mg PO QAM 03/05/22 06/09/22 History clopidogrel 75 mg tablet 75 mg PO QAM 03/05/22 06/09/22 History metoprolol succinate 50 mg 50 mg PO QAM 03/05/22 06/04/22 History tablet,extended release 24 hr lisinopril 20 mg tablet 20 mg PO BID #60 tabs 03/10/22 06/09/22 Rx albuterol sulfate 90 mcg/actuation 2 puff inhalation Q4H PRN SOB #8.5 03/26/22 06/09/22 Rx aerosol inhaler (Ventolin HFA) grams furosemide 40 mg tablet See Rx Instructions .Route 03/27/22 06/09/22 Rx .COMPLEX fluid/congestive heart/weight gain #30 tabs metformin 500 mg tablet 500 mg PO BID #180 tabs 04/15/22 06/04/22 Rx olanzapine 10 mg tablet 10 mg PO DAILY 04/22/22 06/04/22 History hydralazine 25 mg tablet 25 mg PO TID 06/09/22 06/09/22 History 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) Trauma of upper extremity Vitamin D deficiency Surgical History History of cataract surgery History of dilatation and curettage History of ear surgery approx 1984 Hx of tonsillectomy 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 - Tapan Weinstein MD - 02/2022 Family History Family/Other Family history of coronary arteriosclerosis Depression Mother Cardiovascular disease Diabetes Other Family history of bleeding disorder No family history of adverse response to anesthesia Social History Smoking Status: Never smoker Tobacco Type: Cigarettes Age Started Using Tobacco: 15; packs per day: 1; Years Smoked: 50; Number of Years Since Quit: 15; Hx Alcohol Use: No Hx Substance Use: No Preferred Language: Upper Sorbian Communication Ability: Effective Hearing Ability: Hard of Hearing Filament Shaper Required: No Beliefs That Will Affect Care: None marital status: / Current Living Situation: Family Current Living Situation Comment: house current occupational status: retired current occupation: worked in the [employer] How many Children do You have: 2 Feels Safe at Home: Yes caffeine: Yes during the past year weight has: decreased > 10 lbs Do you think of yourself as: straight/heterosexual Gender Identity: Female Assistive Devices: None Review of Systems Review of Systems: Constitutional: mild right sided headache s/p fall; No fever/chills, weakness, fatigue, myalgias, anorexia, night sweats Eyes: No diplopia, no worsening or blurred vision ENT: normal hearing, no trouble swallowing Respiratory: No cough, sputum, dyspnea at rest or on exertion Cardiovascular: No chest pain, tightness or palpitations Abdomen: No pain, nausea, vomiting, diarrhea or constipation : Denies dysuria, hematuria, increased urgency/frequency, urinary retention Musculoskeletal: right shoulder blade pain s/p fall; No joint pain, calf pain, swelling Neurologic: No weakness, numbness/tingling, or balance problems Psychiatric: No anxiety or depression Skin: No rash or itch Physical Exam Physical Exam: General: awake, alert, no apparent distress Head: Normocephalic, atraumatic ENT: PERRL, EOMI, no pharyngeal exudate, mucous membranes moist Chest: Clear to auscultation, on room air, no adventitious breath sounds Cardiac: Regular rate and rhythm, no murmur, no JVD, normal peripheral pulses, good capillary refill Abdominal: NABS x 4 quadrants, soft, nontender to palpation, no rebound, guarding or tenderness Extremities: Normal inspection, no peripheral edema or erythema, calfs nontender to palpation Psych: Normal mood and affect Neuro: AAO x 3, strength intact bilaterally and rated 5/5, no motor deficits, speech is clear, no peripheral sensory deficits Skin: no rash or erythema Results & Data Results & Data ([facility]) Vital Signs (Past 12 Hours) Vital Signs Temp Pulse Pulse Resp BP BP BP 06/09/22 07:58 36.5 C 72 17 198/100 H 182/65 H 06/09/22 07:59 36.5 C 72 16 182/65 H Pulse Ox O2 Del Method 06/09/22 07:58 100 Room Air 06/09/22 07:59 100 Room Air Laboratory Results Abnormal lab results 06/09/22 06/09/22 06/09/22 Range/Units 07:50 07:50 11:23 Hgb 10.9 L (12.0-16.0) g/dl Hct 33.7 L (34.1-44.9) % RDW Std Deviation 52.4 H (36.4-46.3) fL RDW Coeff of Juanita 18.0 H (11.5-14.5) % POC Sodium 132 L (135-144) mmol/L POC Potassium 6.5 H* (3.3-5.0) mmol/L POC Anion Gap 9.0 L (16-25) mmol/L POC BUN 48 H (7-18) mg/dl BUN 37 H (6-23) mg/dl Creatinine 1.25 H (0.6-1.2) mg/dl BUN/Creatinine Ratio 29.6 H (10-20) Glucose 117 H (70-99(Fasting)) mg/dl POC Glucose (other) 149 H (70-99) mg/dl POC Ioniz Calcium Anastasiia 0.92 L (1.12-1.32) mmol/l Diagnostic Findings Head CT 06/09/22 09:14 CT head/brain wo con CLINICAL HISTORY: 82 years-old Female with Fall w [facility]. Acute head trauma status post fall TECHNIQUE: Multiple axial CT images of the head were obtained without contrast. A dose lowering technique was utilized adhering to the principles of ALARA. CT DOSE: 537.48 mGy.cm COMPARISON: Head CT 02/21/2022, brain MRI 10/24/2021 FINDINGS: Small amount of acute subarachnoid hemorrhage is noted in the right sylvian fissure, image 12 series 2. There is no midline shift, intracranial mass, hydrocephalus, territorial ischemia or abnormal extra-axial collection. Involutional changes. White matter hypodensities suggest chronic microvascular ischemic disease. Study is mildly motion degraded. Cerebral vascular calcifications. The calvarium is intact. Trace mastoid effusions. Hypoplastic frontal sinuses. Unremarkable soft tissues. Prior bilateral lens repair. IMPRESSION: Small amount of acute subarachnoid hemorrhage within the right sylvian fissure. 24-hour follow-up head CT is recommended. ACT 112: Negative or not required by law. The above report was generated using voice recognition software. It may contain grammatical, syntax or spelling errors. Electronically signed by: Pino Childress M.D. 06/09/2022 9:[address] 06/09/22 10:50 CT cervical spine wo con CT DOSE: 1217.05 mGy.cm CLINICAL HISTORY: 82 years-old Female with Trauma. Acute posttraumatic neck pain COMPARISON: Chest CT of same day TECHNIQUE: Multiple axial CT images of the cervical spine were obtained without contrast. A dose lowering technique was utilized adhering to the principles of ALARA. FINDINGS: Multilevel degenerative changes include severe disc space narrowing at T2-T3 and T3-T4 with severe multilevel facet arthrosis. Demineralized appearance of the bones. Multilevel neural foraminal narrowing. Mild paravertebral edema. Upper thoracic spine. Partially imaged left subclavian pacer leads. Atherosclerosis of the carotid bulbs. No prevertebral edema. The visualized lung apices appear clear. IMPRESSION: 1. No acute cervical spine fracture or subluxation. 2. Mild nonspecific paravertebral edema of the upper thoracic spine without acute upper thoracic osseous abnormality identified. Findings may be on a degenerative basis. Occult fracture is considered less likely. ACT 112: Negative or not required by law. The above report was generated using voice recognition software. It may contain grammatical, syntax or spelling errors. Electronically signed by: Pino Childress M.D. 06/09/2022 12:[address] 06/09/22 10:[address] WITH CONTRAST HISTORY: Acute chest and right-sided back pain status post trauma Trauma, R back pain TECHNIQUE: Multiaxial CT images of the chest were performed following the IV administration of 94 cc of Optiray. A dose lowering technique was utilized adhering to the principles of ALARA. COMPARISON: CT cervical spine of same day, CTA chest 06/05/2022, chest CT 10/07/2017, 07/22/2017. FINDINGS: Unremarkable thyroid. Nonspecific mildly enlarged subcarinal lymph nodes measure up to 10 mm, likely benign. Moderate to marked cardiomegaly with cardiac pacer. Extensive [place] coronary artery calcifications. Trace pericardial effusion. Dilation of the pulmonary arteries suggestive of pulmonary arterial hypertension. Atherosclerosis of the aorta without aneurysm. Mild left hemidiaphragmatic elevation. Mild pulmonary emphysema without pneumothorax. Mild subpleural reticulation of the upper lobes suggestive of scarring. There is a 4 mm solid nodule noted within the superior segment of the left lower lobe, image 91 which in retrospect is unchanged. Evaluation of the lungs is limited secondary to respiratory motion artifact. There are 2 subadjacent solid pulmonary nodules in the right lower lobe on image 134 measuring up to 4 mm. There is a suggested 6 cm solid nodule right lower lobe on image 200. These nodules overall are of low clinical suspicion as visualized. Central airways are patent. Mild nonspecific wall thickening of the esophagus, most pronounced distally with mild diffuse gaseous distention. Moderate fecal retention of the colon. Mild nonspecific paravertebral edema of the upper thoracic spine. Degenerative changes of the spine and shoulders. Prominent bridging multilevel anterior endplate predominant osteophytosis. Severe intervertebral disc space narrowing at T2-T3 and T3-T4. Paravertebral edema is noted at these levels. No acute fracture or endplate erosion identified. Mild mid thoracic dextroscoliosis. IMPRESSION: 1. Limited exam as above. No acute intrathoracic abnormality identified. 2. Mild paravertebral edema of the upper thoracic spine . No acute fracture or subluxation is identified. These findings are likely on a degenerative basis. An occult fracture is considered less likely. 3. Severe intervertebral disc space narrowing at T2-T3 and T3-T4. 4. Additional findings as above. ACT 112: Negative or not required by law. Electronically signed by: Pino Childress M.D. 06/09/2022 12:37 PM ECG Additional Comments: Atrial-sensed ventricular-paced rhythm with prolonged AV conduction Abnormal ECG When compared with ECG of 05-MAR-2022 11:00, Vent. rate has increased BY 8 BPM. Code Status & VTE Plan Code Status DNR/DNI. Supervising Physician Co-Signing Physician Notes Patient seen and examined, chart reviewed, case discussed with Mariam Sahu PA-C and I agree with the assessment and plan as above except as otherwise noted Labs and images reviewed Marge is a 82-year-old female with a history of heart failure with diastolic dysfunction, hypertension, renal artery stenosis, type 2 diabetes mellitus, cardiac pacemaker for high-grade AV block, and CKD 3 who presented after a mechanical fall slipping on her socks causing her to fall and strike the right side of her head and she was found to have a small SAH with sylvian fissure right-sided bleed. Case discussed and reviewed with [facility] neurosurgery. Traumatic bleed, no aneurysm. Recommended for observation with repeat CT scan in 24 hours. Patient is seen at the bedside. Did not take any of her morning meds, received her oral antihypertensives approximately 2 hours prior to hospitalist assessment. Remains hypertensive to 200 systolic, recheck 185 systolic. Patient reports he does have a history of renal artery stenosis which is being followed as outpatient and was pending further work-up and potential intervention but she has not gotten there yet. She does not have any headache, chest pain, chest pressure, confusion, lightheadedness, dizziness. On physical exam lungs are clear, heart rate is regular. Patient has a right contusion and several sutures with right ear laceration repair. Right elbow contusion with repair. No active bleeding. No crepitus. Answers questions appropriately, oriented to name, date, and place Traumatic fall with SAH/right sylvian fissure bleed Discussed with [facility] neurosurgery while in ER. Recommended for obs ervation and serial imaging, transfer not recommended. Patient with resistant hypertension and a history of YVONNE. Audrey hypertensive after taking her home medications on arrival to ER. Will initiate nicardipine drip, goal blood pressure [id number]. Neurochecks hourly CThead in 24 hours, or sooner if neuro status changes Neuro cognitively intact at this place, will continue on clears Hold Plavix, last dose was 06/08/2022 for carotid stenosis. No history of cardiac stents per patient. CT C-spine with no fractures, patient with degenerative changes and severe disc space narrowing at T2-T4 S/p right ear LAC repair, right elbow repair with 1 dose of Unasyn given in ER Diastolic CHF: No acute exacerbation on admission. Hold antiplatelets, continue Lasix/metoprolol/atorvastatin YVONNE: Blood pressure management as above, creatinine daily renal function may not tolerate aggressive blood pressure control will target goal BP on nicardipine of less than 160. Renally dose medications for CKD. BMP daily DM: ICU hyperglycemia protocol, BSG [id number] on admit Potassium: POC 6.5, lab 4.8 suspect 6.5 hemolyzed sample Other management as above PG Care Time/CCT Total # of Minutes Spent Total Time Spent with Patient: Total time spent is greater than 50% in coordination of care (as documented) at patient's floor/unit and/or counseling patient: Coding Level of Care Code 80686 Initial Inpt Care Lvl 3 Diagnoses SAH (subarachnoid hemorrhage) I60.9 Fall W19.XXXA Essential hypertension I10 Renal artery stenosis I70.1 Carotid artery stenosis I65.23 Laterality: bilateral Chronic kidney disease, stage 3 (moderate) N18.30 Chronic kidney disease stage 3 subtype: unspecified whether 3a or 3b Diabetes mellitus, type II E11.9 Anemia D64.9 (HFpEF) heart failure with preserved ejection fraction I50.30 Severe recurrent major depression with psychotic features F33.3 (1) Carotid artery stenosis Laterality: bilateral Qualified Code(s): I65.23 - Occlusion and stenosis of bilateral carotid arteries (2) Chronic kidney disease, stage 3 (moderate) Chronic kidney disease stage 3 subtype: unspecified whether 3a or 3b Qualified Code(s): N18.30 - Chronic kidney disease, stage 3 unspecified
[2022-06-09] MEDS ORDERED: hydrALAZINE HCL 20 MG/ML VIAL IV STA (13:26)
[2022-06-09] MEDS ORDERED: STAT IV Infusion **Titration per Protocol STA (14:05)
[2022-06-09] MEDS: niCARdipine 25 MG in SODIUM CHLORIDE 0.9% 240 ML IV SCH ×2 (14:39→19:50)
--- NOTE | 2022-06-09 15:00 | Emergency Department Note ---
Impression & Plan SAH (subarachnoid hemorrhage), Fall, Laceration of ear, HTN (hypertension), Skin tear of right elbow without complication ED Provider Note CHIEF COMPLAINT: fall, R ear laceration and mid back pain HISTORY OF PRESENT ILLNESS: This 82 yo female patient presents to the emergency department today EMS. Patient was trying to get out of bed and wearing socks and her feet slipped out from underneath her. She hit her head against the dresser and does complain of mid back pain. Patient does have a right ear laceration and multiple skin tear. The patient denies loss of consciousness. Daughter states she was already trying to get up at the time she got into the room. Patient denies any injury to the chest, abdomen or hips. REVIEW OF SYSTEMS: A review of systems was performed with positives and pertinent negatives listed in the history of present illness. 10 systems were reviewed and are otherwise negative. ALLERGIES: see below MEDICATIONS: see below PMH: see below SOCIAL HISTORY: see below DDx: Fracture, dislocation, contusion, intra-abdominal, pneumothorax, intratho racic, intracranial, neurologic, compartment syndrome, rhabdomyolysis, as well as other pathologies. PHYSICAL EXAM: Vital signs reviewed. Noted to be hypertensive General: Chronically ill-appearing 82-year-old female, in no significant distress. HEENT: No scleral icterus, PERRLA, neck supple. R ear laceration through pinna with active bleeding Cardiovascular: Regular rate and rhythm, no extra sounds. Pulmonary: Clear to auscultation bilaterally, normal work of breathing. Abdomen: Soft, nontender, nondistended, positive bowel sounds. Musculoskeletal: Atraumatic, no peripheral edema. Neurologic: Patient awake alert and oriented x 3, speech is clear Skin: Warm, dry, no rash. Skin tear to R elbow EMERGENCY DEPARTMENT COURSE/MDM: This patient was evaluated and appeared to be in no significant distress. Patient was placed on the hvac lead and noted to be in a normal sinus rhythm with hypertension. CT imaging of the head was performed and reveals a small subarachnoid hemorrhage. The right ear laceration was repaired in addition to the right elbow. Patient continued to complain of right back pain and did not feel that she would be able to sit for x-rays. She was sent back for CT of the C-spine and chest. The studies are essentially negative for acute traumatic findings. There is chronic arthritic changes noted. Patient's laboratory work reveals mild renal insufficiency. IV Unasyn was administered for the ear laceration was cartilage exposure. Patient's case was discussed with neurosurgery at [facility] Dr. Neville, who agrees the patient can have a 24-hour repeat CT and we can avoid transfer at this time. The patient remained hypertensive despite her oral antihypertensives given earlier in the visit. IV hydralazine 10 mg was administered. Patient's case was discussed with Dr. Elena of the hospitalist service who has agreed to evaluate the patient for further management. Location: R ear Total length: 5 cm Complexity: complex Verbal consent was obtained after the risks and benefits were explained, including but not limited to bleeding, scarring, infection, pain, and bone/joint/nerve damage. At this time, the risks of the procedure are less than the risks of NOT performing the procedure. A time out was taken and the correct patient and site identified. The skin was prepped with betadine. The target area was anesthetized with [] ml of 1% lidocaine without epinephrine. Copious irrigation was performed using saline. The skin was re-prepped with betadine and a sterile field set. The wound was explored for foreign bodies and none found. Examination revealed exposed cartilage. Debridement was not performed. The wound edges were approximated using 4.0 Ethilon suture, 8-0 simple interrupted nylon sutures. Hemostasis and excellent approximation was achieved. Antibacterial ointment and a sterile dressing applied. No complications and the patient tolerated the procedure well. Location: Right elbow skin tear Total length: 5 cm Complexity: Simple Verbal consent was obtained after the risks and benefits were explained, inclu ding but not limited to bleeding, scarring, infection, pain, and bone/joint/nerve damage. At this time, the risks of the procedure are less than the risks of NOT performing the procedure. A time out was taken and the correct patient and site identified. The skin was prepped with betadine. The target area was anesthetized with LET gel. Copious irrigation was performed using saline. The skin was re-prepped with betadine and a sterile field set. The wound was explored for foreign bodies and none found. Examination revealed no injury to deep structures such as tendons, bone, or significant blood vessels. The wound edges were approximated using Dermabond and overlying Steri-Strips hemostasis and excellent approximation was achieved. No complications and the patient tolerated the procedure well. MONITORING: An order for cardiac monitoring was placed and the patient is noted to be in a paced rhythm at 69 beats per minute. RADIOLOGY: see below EKG: Atrially sensed and ventricularly paced with prolonged AV conduction at 71 bpm. QTc is 486. When compared to March 05, 2022, paced rhythm is new. DISPOSITION: Admission I have personally spent 60 minutes of critical care time in the direct management of this patient. This was a life/limb threatening event. This 60 minutes is in excess of all separately billable procedures. 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) Trauma of upper extremity Vitamin D deficiency Surgical History History of cataract surgery History of dilatation and curettage History of ear surgery approx 1984 Hx of tonsillectomy 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 - Tapan Weinstein MD - 02/2022 Family History Family/Other Family history of coronary arteriosclerosis Depression Mother Cardiovascular disease Diabetes Other Family history of bleeding disorder No family history of adverse response to anesthesia Social History Smoking Status: Former smoker Tobacco Type: Cigarettes Age Started Using Tobacco: 15; packs per day: 1; Years Smoked: 50; Number of Years Since Quit: 15; Hx Alcohol Use: No Hx Substance Use: No Preferred Language: Stateless Communication Ability: Effective Hearing Ability: Hard of Hearing Compensation And Benefits Analyst Required: No Beliefs That Will Affect Care: None marital status: / Current Living Situation: Family Current Living Situation Comment: house current occupational status: retired current occupation: worked in the [employer] How many Children do You have: 2 Other Information That Helps Us Care for You: No Feels Safe at Home: Yes Safety Concerns: Feels Safe At This Time caffeine: Yes during the past year weight has: decreased > 10 lbs Do you think of yourself as: straight/heterosexual Gender Identity: Female Assistive Devices: Denture - Upper, Denture - Lower, Glasses and Hearing Aid - Bilateral Allergies Allergies Allergy/AdvReac Type Severity Reaction Status Date / Time bacitracin Allergy Unknown UNKNOWN Verified 06/09/22 14:39 neomycin Allergy Unknown Unknown Verified 06/09/22 14:39 [From Neosporin ([id number])] polymyxin B Allergy Unknown UNKNOWN Verified 06/09/22 14:39 adhesive AdvReac Mild RED AND Verified 06/09/22 14:39 ITCHY Bandaid Allergy Mild red and Uncoded 06/09/22 14:39 itchy Home Meds Home Medications Medication Instructions Recorded Confirmed lancets 30 gauge (OneTouch Delica #25 ea 05/04/19 06/04/22 Lancets) cholecalciferol (vitamin D3) 50 2,000 units PO QAM 06/21/19 06/09/22 mcg (2,000 unit) tablet mecobalamin (vitamin B12) 5,000 2,500 mcg PO QAM 03/27/21 06/09/22 mcg disintegrating tablet vitamin E (dl, acetate) 180 mg 45 mg PO QAM 03/27/21 06/09/22 (400 unit) capsule mirtazapine 15 mg tablet 15 mg PO HS 07/03/21 06/09/22 olanzapine 10 mg tablet (Zyprexa) 10 mg PO HS 07/03/21 06/09/22 venlafaxine 150 mg 300 mg PO QAM 07/03/21 06/09/22 capsule,extended release 24 hr methylphenidate HCl 10 mg tablet 10 mg PO TID 08/15/21 06/09/22 (Ritalin) olanzapine 2.5 mg tablet 2.5 mg PO HS 01/01/22 06/09/22 atorvastatin 40 mg tablet 40 mg PO HS 02/21/22 06/09/22 amlodipine 10 mg tablet 10 mg PO QAM 03/05/22 06/09/22 clopidogrel 75 mg tablet 75 mg PO QAM 03/05/22 06/09/22 metoprolol succinate 50 mg 50 mg PO QAM 03/05/22 06/09/22 tablet,extended release 24 hr olanzapine 10 mg tablet 10 mg PO DAILY 04/22/22 06/09/22 hydralazine 25 mg tablet 25 mg PO TID 06/09/22 06/09/22 Previous Rx's Medication Instructions Recorded OneTouch Ultra Test (blood sugar #100 ea 01/03/22 diagnostic) lisinopril 20 mg tablet 20 mg PO BID #60 tabs 03/10/22 albuterol sulfate 90 mcg/actuation 2 puff inhalation Q4H PRN SOB #8.5 03/26/22 aerosol inhaler (Ventolin HFA) grams furosemide 40 mg tablet See Rx Instructions .Route 03/27/22 .COMPLEX fluid/congestive heart/weight gain #30 tabs metformin 500 mg tablet 500 mg PO BID #180 tabs 04/15/22 Results & Data (ED) Vital Signs Vital Signs - 24 hr 06/09/22 07:59 06/09/22 07:58 06/09/22 09:00 Temperature 36.5 C 36.5 C Temperature Source Oral Oral Pulse Rate 72 69 Pulse Rate [Finger] 72 Pulse Rate from SpO2 Sensor 65 Respiratory Rate 16 17 20 Blood Pressure 182/65 H Blood Pressure [Left Arm] 198/100 H Blood Pressure [Right Arm] 182/65 H Blood Pressure Mean 104 Blood Pressure Mean [Left Arm] 132 Blood Pressure Mean [Right Arm] 104 Blood Pressure Position Sitting Blood Pressure Position [Left Arm] Lying Blood Pressure Position [Right Arm] Lying Pulse Oximetry 100 100 99 Oxygen Delivery Method Room Air Room Air Sepsis Recent Fever Within 48 Hours No Sepsis New/Unexplained Change in Mental Status No Sepsis Action Taken by Nursing No Action Required 06/09/22 10:00 06/09/22 10:18 06/09/22 10:18 Temperature Temperature Source Pulse Rate 66 68 Pulse Rate [Finger] Pulse Rate from SpO2 Sensor 67 69 Respiratory Rate 18 18 Blood Pressure 201/59 H Blood Pressure [Left Arm] Blood Pressure [Right Arm] Blood Pressure Mean 106 Blood Pressure Mean [Left Arm] Blood Pressure Mean [Right Arm] Blood Pressure Position Blood Pressure Position [Left Arm] Blood Pressure Position [Right Arm] Pulse Oximetry 100 100 Oxygen Delivery Method Sepsis Recent Fever Within 48 Hours Sepsis New/Unexplained Change in Mental Status Sepsis Action Taken by Nursing 06/09/22 11:57 06/09/22 12:00 06/09/22 13:00 Temperature Temperature Source Pulse Rate 96 H 68 65 Pulse Rate [Finger] Pulse Rate from SpO2 Sensor 65 Respiratory Rate 18 22 Blood Pressure Blood Pressure [Left Arm] Blood Pressure [Right Arm] Blood Pressure Mean Blood Pressure Mean [Left Arm] Blood Pressure Mean [Right Arm] Blood Pressure Position Blood Pressure Position [Left Arm] Blood Pressure Position [Right Arm] Pulse Oximetry 96 Oxygen Delivery Method Sepsis Recent Fever Within 48 Hours Sepsis New/Unexplained Change in Mental Status Sepsis Action Taken by Nursing 06/09/22 13:18 06/09/22 13:18 06/09/22 13:24 Temperature Temperature Source Pulse Rate 69 Pulse Rate [Finger] Pulse Rate from SpO2 Sensor 68 Respiratory Rate 20 Blood Pressure 203/70 H 200/65 H Blood Pressure [Left Arm] Blood Pressure [Right Arm] Blood Pressure Mean 114 110 Blood Pressure Mean [Left Arm] Blood Pressure Mean [Right Arm] Blood Pressure Position Blood Pressure Position [Left Arm] Blood Pressure Position [Right Arm] Pulse Oximetry 98 Oxygen Delivery Method Sepsis Recent Fever Within 48 Hours Sepsis New/Unexplained Change in Mental Status Sepsis Action Taken by Nursing 06/09/22 13:24 06/09/22 13:27 06/09/22 13:27 Temperature Temperature Source Pulse Rate 65 65 Pulse Rate [Finger] Pulse Rate from SpO2 Sensor 64 65 Respiratory Rate 24 25 H Blood Pressure 200/66 H Blood Pressure [Left Arm] Blood Pressure [Right Arm] Blood Pressure Mean 110 Blood Pressure Mean [Left Arm] Blood Pressure Mean [Right Arm] Blood Pressure Position Blood Pressure Position [Left Arm] Blood Pressure Position [Right Arm] Pulse Oximetry 100 99 Oxygen Delivery Method Sepsis Recent Fever Within 48 Hours Sepsis New/Unexplained Change in Mental Status Sepsis Action Taken by Nursing 06/09/22 13:33 06/09/22 13:33 Temperature Temperature Source Pulse Rate 66 66 Pulse Rate [Finger] Pulse Rate from SpO2 Sensor 67 Respiratory Rate 25 H Blood Pressure 182/50 H Blood Pressure [Left Arm] Blood Pressure [Right Arm] Blood Pressure Mean 94 Blood Pressure Mean [Left Arm] Blood Pressure Mean [Right Arm] Blood Pressure Position Blood Pressure Position [Left Arm] Blood Pressure Position [Right Arm] Pulse Oximetry 100 Oxygen Delivery Method Sepsis Recent Fever Within 48 Hours Sepsis New/Unexplained Change in Mental Status Sepsis Action Taken by Half-Way Medications Current Medication List: was personally reviewed by me Laboratory Data Attestation: I reviewed the patient's lab results. Result diagrams: 06/09/22 07:50 06/09/22 07:50 Lab Results 06/09/22 06/09/22 06/09/22 Range/Units 07:50 07:50 11:23 WBC 4.90 (4.8-10.8) K/ul RBC 4.20 (3.93-5.22) M/uL Hgb 10.9 L (12.0-16.0) g/dl POC Hgb 12.6 (12.0-16.0) g/dl Hct 33.7 L (34.1-44.9) % POC Hct 37 (37-47) % MCV 80.2 (80.0-100.0) fL MCH 26.0 (25.0-34.0) pg MCHC 32.3 (32.0-36.0) g/dL RDW Std Deviation 52.4 H (36.4-46.3) fL RDW Coeff of Juanita 18.0 H (11.5-14.5) % Plt Count 259 (130-400) K/uL MPV 12.2 (9.4-12.3) fL Immature Gran % (Auto) 0.4 % Neut % (Auto) 58.6 % Lymph % (Auto) 26.5 % Wheeler % (Auto) 9.8 % Eos % (Auto) 3.7 % Baso % (Auto) 1.0 % Neut # (Auto) 2.87 (1.4-6.5) K/uL Lymph # (Auto) 1.30 (1.2-3.4) K/uL Wheeler # (Auto) 0.48 (0.24-0.82) K/uL Eos # (Auto) 0.18 (0-0.50) K/uL Baso # (Auto) 0.05 (0-0.2) K/uL Immature Gran # (Auto) 0.02 (0.00-0.02) K/uL POC Sodium 132 L (135-144) mmol/L Sodium 137 (136-145) mmol/L POC Potassium 6.5 H* (3.3-5.0) mmol/L Potassium 4.8 (3.5-5.1) mmol/L POC Chloride 101 (101-112) mmol/L Chloride 99 (98-107) mmol/L Carbon Dioxide 30 (21-32) mmol/L POC Total CO2 29 (24-31) mmol/L Anion Gap 8 (3-11) POC Anion Gap 9.0 L (16-25) mmol/L POC BUN 48 H (7-18) mg/dl BUN 37 H (6-23) mg/dl Creatinine 1.25 H (0.6-1.2) mg/dl POC Creatinine 1.3 (0.6-1.3) mg/dl Est Cr Clr Drug Dosing 31.2 ml/min Est GFR ( Amer) 45.7 ml/min Est GFR (Non-Af Amer) 39.5 ml/min BUN/Creatinine Ratio 29.6 H (10-20) Glucose 117 H (70-99(Fasting)) mg/dl POC Glucose (other) 149 H (70-99) mg/dl Calcium 9.5 (8.5-10.1) mg/dl POC Ioniz Calcium Anastasiia 0.92 L (1.12-1.32) mmol/l Total Bilirubin 0.3 (0.2-1.0) mg/dl AST 19 (13-39) U/L ALT 18 (7-52) U/L Alkaline Phosphatase 54 (34-104) U/L Total Protein 6.7 (6.0-8.3) gm/dl Albumin 4.0 (3.4-5.0) gm/dl Globulin 2.7 (2.5-4.0) gm/dl Albumin/Globulin Ratio 1.5 (0.9-2) Administered Medications Atorvastatin Calcium (Atorvastatin 40 Mg Tab) 40 mg PO HS SYMONE Stop: 07/09/22 20:59 Last Admin: 06/09/22 20:06 Dose: 40 mg Documented By: VK Cyclobenzaprine HCl (Cyclobenzaprine Hcl 5 Mg Tab) 5 mg PO DAILY PRN PRN Reason: back pain/spasm Stop: 07/09/22 17:29 Last Admin: 06/09/22 17:48 Dose: 5 mg Documented By: MYRNA Furosemide (Furosemide 40 Mg Tab) 20 mg PO DAILY SYMONE; Protocol Stop: 07/09/22 17:29 Last Admin: 06/09/22 17:45 Dose: 20 mg Documented By: MYRNA Hydralazine HCl (Hydralazine Hcl 25 Mg Tab) 25 mg PO TID SYMONE Stop: 07/09/22 20:59 Last Admin: 06/09/22 20:05 Dose: 25 mg Documented By: VK Nicardipine HCl 25 mg/ Sodium (Chloride) 250 mls @ 25 mls/hr IV .Q10H SYMONE; Protocol Stop: 07/09/22 14:14 Last Titration: 06/09/22 22:34 Dose: 0 mg/hr, 0 mls/hr Documented By: Titration: 06/09/22 21:33 Dose: 2.5 mg/hr, 25 mls/hr Documented By: Admin: 06/09/22 19:50 Dose: 5 mg/hr, 50 mls/hr Documented By: VALENTIN Co-signed By: JEANNIE Titration: 06/09/22 19:50 Dose: 5 mg/hr, 50 mls/hr Documented By: VALENTIN Co-signed By: JEANNIE Titration: 06/09/22 19:02 Dose: 5 mg/hr, 50 mls/hr Documented By: VALENTIN Co-signed By: MYRNA Admin: 06/09/22 14:39 Dose: 5 mg/hr, 50 mls/hr Documented By: SOPHIA Co-signed By: DORINDA Lidocaine (Lidocaine 5% 1 Patch) 1 patch TD QAM [facility] Stop: 07/09/22 17:24 Last Admin: 06/09/22 17:45 Dose: 1 patch Documented By: MYRNA Methylphenidate HCl (Methylphenidate Hcl 10 Mg Tablet) 10 mg PO TID [facility] Stop: 06/23/22 20:59 Last Admin: 06/09/22 20:09 Dose: Not Given Documented By: VALENTIN Mirtazapine (Mirtazapine Tab 15 Mg Tab) 15 mg PO [facility] Stop: 07/09/22 20:59 Last Admin: 06/09/22 20:05 Dose: 15 mg Documented By: VK Olanzapine (Olanzapine 10 Mg Tab) 10 mg PO [facility] Stop: 07/09/22 20:59 Last Admin: 06/09/22 20:04 Dose: 10 mg Documented By: VALENTIN Olanzapine (Olanzapine 2.5 Mg Tab) 2.5 mg PO [facility] Stop: 07/09/22 20:59 Last Admin: 06/09/22 20:05 Dose: 2.5 mg Documented By: VK Discontinued Medications Acetaminophen (Acetaminophen 500 Mg Tab) 1,000 mg PO NOW STA Stop: 06/09/22 09:16 Last Admin: 06/09/22 09:30 Dose: 1,000 mg Documented By: SOPHIA Amlodipine Besylate (Amlodipine Besylate 5 Mg Tab) 10 mg PO NOW ONE Stop: 06/09/22 10:15 Last Admin: 06/09/22 10:50 Dose: 10 mg Documented By: SOPHIA Hydralazine HCl (Hydralazine Hcl 25 Mg Tab) 25 mg PO NOW STA Stop: 06/09/22 10:18 Last Admin: 06/09/22 10:51 Dose: 25 mg Documented By: SOPHIA Hydralazine HCl (Hydralazine Hcl 20 Mg/Ml Vial) 10 mg IV NOW STA Stop: 06/09/22 13:27 Last Admin: 06/09/22 14:25 Dose: Not Given Documented By: SOPHIA Ampicillin Sodium/Sulbactam Sodium 3,000 mg/ Sodium Chloride 108 mls @ 200 mls/hr IV NOW STA; Protocol Stop: 06/09/22 11:52 Last Infusion: 06/09/22 14:25 Dose: 0 mls/hr Documented By: Admin: 06/09/22 12:32 Dose: 200 mls/hr Documented By: RACQUEL Ioversol (Optiray 300 100ml) 94 ml IV ONCE ONE Stop: 06/09/22 11:44 Last Admin: 06/09/22 11:44 Dose: 94 ml Documented By: JOHN Lidocaine (Lidocaine/Epineph/Tetracaine 1 Ea Syr) 1 each EXT NOW STA Stop: 06/09/22 09:16 Last Admin: 06/09/22 10:50 Dose: 1 each Documented By: SOPHIA Lidocaine HCl (Lidocaine 1% Local 20 Ml Vial) 20 ml INJ NOW ONE Stop: 06/09/22 09:16 Last Admin: 06/09/22 10:50 Dose: 20 ml Documented By: SOPHIA Lisinopril (Lisinopril 40 Mg Tab) 40 mg PO NOW STA Stop: 06/09/22 10:17 Last Admin: 06/09/22 10:50 Dose: 40 mg Documented By: SOPHIA Metoprolol Succinate (Metoprolol Succ 50mg Ext Rel Tab) 50 mg PO NOW STA Stop: 06/09/22 10:18 Last Admin: 06/09/22 10:51 Dose: 50 mg Documented By: [facility] Imaging Data Radiologist's Impression: Cervical Spine CT 06/09/22 10:50 CT cervical spine wo con CT DOSE: 1217.05 mGy.cm CLINICAL HISTORY: 82 years-old Female with Trauma. Acute posttraumatic neck pain COMPARISON: Chest CT of same day TECHNIQUE: Multiple axial CT images of the cervical spine were obtained without contrast. A dose lowering technique was utilized adhering to the principles of ALARA. FINDINGS: Multilevel degenerative changes include severe disc space narrowing at T2-T3 and T3-T4 with severe multilevel facet arthrosis. Demineralized appearance of the bones. Multilevel neural foraminal narrowing. Mild paravertebral edema. Upper thoracic spine. Partially imaged left subclavian pacer leads. Atherosclerosis of the carotid bulbs. No prevertebral edema. The visualized lung apices appear clear. IMPRESSION: 1. No acute cervical spine fracture or subluxation. 2. Mild nonspecific paravertebral edema of the upper thoracic spine without acute upper thoracic osseous abnormality identified. Findings may be on a degenerative basis. Occult fracture is considered less likely. ACT 112: Negative or not required by law. The above report was generated using voice recognition software. It may contain grammatical, syntax or spelling errors. Electronically signed by: Pino Childress M.D. 06/09/2022 12:[address] 06/09/22 10:[address] WITH CONTRAST HISTORY: Acute chest and right-sided back pain status post trauma Trauma, R back pain TECHNIQUE: Multiaxial CT images of the chest were performed following the IV administration of 94 cc of Optiray. A dose lowering technique was utilized adhering to the principles of ALARA. COMPARISON: CT cervical spine of same day, CTA chest 06/05/2022, chest CT 10/07/2017, 07/22/2017. FINDINGS: Unremarkable thyroid. Nonspecific mildly enlarged subcarinal lymph nodes measure up to 10 mm, likely benign. Moderate to marked cardiomegaly with cardiac pacer. Extensive [place] coronary artery calcifications. Trace pericardial effusion. Dilation of the pulmonary arteries suggestive of pulmonary arterial hypertension. Atherosclerosis of the aorta without aneurysm. Mild left hemidiaphragmatic elevation. Mild pulmonary emphysema without pneumothorax. Mild subpleural reticulation of the upper lobes suggestive of scarring. There is a 4 mm solid nodule noted within the superior segment of the left lower lobe, image 91 which in retrospect is unchanged. Evaluation of the lungs is limited secondary to respiratory motion artifact. There are 2 subadjacent solid pulmonary nodules in the right lower lobe on image 134 measuring up to 4 mm. There is a suggested 6 cm solid nodule right lower lobe on image 200. These nodules overall are of low clinical suspicion as visualized. Central airways are patent. Mild nonspecific wall thickening of the esophagus, most pronounced distally with mild diffuse gaseous distention. Moderate fecal retention of the colon. Mild nonspecific paravertebral edema of the upper thoracic spine. Degenerative changes of the spine and shoulders. Prominent bridging multilevel anterior endplate predominant osteophytosis. Severe intervertebral disc space narrowing at T2-T3 and T3-T4. Paravertebral edema is noted at these levels. No acute fracture or endplate erosion identified. Mild mid thoracic dextroscoliosis. IMPRESSION: 1. Limited exam as above. No acute intrathoracic abnormality identified. 2. Mild paravertebral edema of the upper thoracic spine . No acute fracture or subluxation is identified. These findings are likely on a degenerative basis. An occult fracture is considered less likely. 3. Severe intervertebral disc space narrowing at T2-T3 and T3-T4. 4. Additional findings as above. ACT 112: Negative or not required by law. Electronically signed by: Pino Childress M.D. 06/09/2022 12:37 PM Blood Pressure Blood Pressure Findings: Elevated blood pressure Blood Pressure Disposition: further management by hospitalist Head Trauma GCS Score: 15 Discharge Plan Visit Data Chief Complaint: Fall Stated Complaint: Fall ED Provider: Nidhi Marquez Discharge Problem: SAH (subarachnoid hemorrhage), Fall, Laceration of ear, HTN (hypertension), Skin tear of right elbow without complication Patient Disposition: Admitted As Inpatient Discharge Instructions Interventions: ED Discharge Assessment Last Done: 06/09/22 15:52
--- NOTE | 2022-06-09 15:16 | Electrocardiogram Report ---
Test Reason : Blood Pressure : / mmHG Vent. Rate : 071 BPM Atrial Rate : 071 BPM P-R Int : 212 ms QRS Dur : 162 ms QT Int : 448 ms P-R-T Axes : 076 102 -49 degrees QTc Int : 486 ms Normal sinus rhythm Atrial-sensed ventricular-paced rhythm with prolonged AV conduction Abnormal ECG When compared with ECG of 05-MAR-2022 11:00, Vent. rate has increased BY 8 BPM Sinus rhythm has replaced A Paced Confirmed by Jaun Randhawa ([id number]) on 06/09/2022 3:16:10 PM Referred By: REFERRED SELF Confirmed By:Jaun Randhawa
--- NOTE | 2022-06-09 16:15 | Critical Care Consultation ---
Date of Consultation June 09, 2022 Assessment & Plan (1) SAH (subarachnoid hemorrhage): Reason Critically Ill: 82-year-old female with traumatic subarachnoid and significant hypertension PLAN: Neuro: Mechanical fall -Reviewed CT chest and cervical spine: Mild paravertebral edema of the upper thoracic spine -Lidocaine patch as needed -Pain is more with movements, limit aggressive muscle relaxer and narcotics secondary to need for adequate neuro exam in the next 24 hours -Flexeril 5 mg Major depressive episode -Zyprexa 10 mg daily also written for 12.5 mg nightly -Psychiatry note from 09/27/2021 reports 10 mg of Zyprexa daily -Follows with psychiatry: Mat -Ritalin 10 mg 3 times daily per psychiatry Resp: Chronic hypercapnic respiratory failure -Following with pulmonary as an outpatient CV: Peripheral arterial disease: Renal artery stenosis, bilateral carotid stenoses -Plavix: Hold -Atorvastatin 40 mg nightly History heart failure with preserved ejection fraction -Lisinopril 20 mg twice daily: Chronic medication -Toprol-XL 50 mg daily -Hydralazine 25 mg by mouth 3 times daily -Lasix 20 mg daily Hypertension -IV nicardipine decrease systolic blood pressure to at least 160 ideally 140 -Patient was given morning meds continue chronic meds -Suspect some of the hypertension is related to acute pain response status post fall -10 mg amlodipine daily Fluids/Renal: Chronic kidney disease stage III -Close follow-up with primary care 1800 mL fluid restriction GI/Nutrition: AHA diet Heme: Anemia: NOS -Appears near baseline DVT prophylaxis: SCDs, chemical prophylaxis contraindicated Endocrine: ICU hyperglycemia protocol Diabetes type 2 -05/17/2022 A1c 5.6 Vascular access: Peripheral IVs Code Status: DNR in event of cardiac arrest DNI in event of respiratory insufficiency, would not want heroic measures undertaken in event of significant intracranial hemorrhage Disposition: ICU (2) Fall: (3) (HFpEF) heart failure with preserved ejection fraction: (4) Pacemaker: (5) Congestive heart failure: (6) Hyponatremia: (7) Essential hypertension: (8) Renal artery stenosis: (9) Status post placement of cardiac pacemaker: (10) H/O transient ischemic attack involving anterior circulation: (11) Traumatic wound: (12) Chronic kidney disease, stage 3 (moderate): (13) Diabetes mellitus, type II: (14) Obesity, morbid, BMI 40.0-49.9: History of Present Illness Reason for Consultation: Traumatic subarachnoid hemorrhage status post mechanical fall Requesting Physician: Sincere Newman MD Attending Physician: Sincere Newman MD History of Present Illness Patient is an 82-year-old female who reports she slipped in her socks and struck her head. She sustained a laceration to her right elbow and right ear which were repaired in the emergency department. In the emergency department she underwent a CT scan which was found to have a traumatic subarachnoid. This was reported to have been discussed with neurosurgery and karen Mercedes who recommended observation at this facility and not transfer for further evaluation and management. Was noted that the patient was rather hypertensive, when questioning the patient and her daughter she reports that the blood pressure normally ranges systolically between 140 and 180. Is also reported that she is being worked up for possible renal artery stenosis. Patient has known peripheral arterial disease, she has bilateral carotid stenosis she is currently taking atorvastatin and clopidogrel. Allergies Allergy/AdvReac Type Severity Reaction Status Date / Time bacitracin Allergy Unknown UNKNOWN Verified 06/09/22 14:39 neomycin Allergy Unknown Unknown Verified 06/09/22 14:39 [From Neosporin ([id number])] polymyxin B Allergy Unknown UNKNOWN Verified 06/09/22 14:39 adhesive AdvReac Mild RED AND Verified 06/09/22 14:39 ITCHY Bandaid Allergy Mild red and Uncoded 06/09/22 14:39 itchy Home Medications Medication Instructions Recorded Confirmed Type lancets 30 gauge (OneTouch Delica #25 ea 05/04/19 06/04/22 History Lancets) cholecalciferol (vitamin D3) 50 2,000 units PO QAM 06/21/19 06/09/22 History mcg (2,000 unit) tablet mecobalamin (vitamin B12) 5,000 2,500 mcg PO QAM 03/27/21 06/09/22 History mcg disintegrating tablet vitamin E (dl, acetate) 180 mg 45 mg PO QAM 03/27/21 06/09/22 History (400 unit) capsule mirtazapine 15 mg tablet 15 mg PO HS 07/03/21 06/09/22 History olanzapine 10 mg tablet (Zyprexa) 10 mg PO HS 07/03/21 06/09/22 History venlafaxine 150 mg 300 mg PO QAM 07/03/21 06/09/22 History capsule,extended release 24 hr methylphenidate HCl 10 mg tablet 10 mg PO TID 08/15/21 06/09/22 History (Ritalin) olanzapine 2.5 mg tablet 2.5 mg PO HS 01/01/22 06/09/22 History OneTouch Ultra Test (blood sugar #100 ea 01/03/22 06/04/22 Rx diagnostic) atorvastatin 40 mg tablet 40 mg PO HS 02/21/22 06/09/22 History amlodipine 10 mg tablet 10 mg PO QAM 03/05/22 06/09/22 History clopidogrel 75 mg tablet 75 mg PO QAM 03/05/22 06/09/22 History metoprolol succinate 50 mg 50 mg PO QAM 03/05/22 06/09/22 History tablet,extended release 24 hr lisinopril 20 mg tablet 20 mg PO BID #60 tabs 03/10/22 06/09/22 Rx albuterol sulfate 90 mcg/actuation 2 puff inhalation Q4H PRN SOB #8.5 03/26/22 06/09/22 Rx aerosol inhaler (Ventolin HFA) grams furosemide 40 mg tablet See Rx Instructions .Route 03/27/22 06/09/22 Rx .COMPLEX fluid/congestive heart/weight gain #30 tabs metformin 500 mg tablet 500 mg PO BID #180 tabs 04/15/22 06/09/22 Rx olanzapine 10 mg tablet 10 mg PO DAILY 04/22/22 06/09/22 History hydralazine 25 mg tablet 25 mg PO TID 06/09/22 06/09/22 History Patient History Medical History Anemia Arthritis Carotid artery stenosis Cerumen impaction Chronic kidney disease, stage 3 (moderate) Depression Diabetes mellitus, type II Diabetic retinopathy, nonproliferative Dyslipidemia ETD (eustachian tube dysfunction) History of skin cancer Melanoma Mixed conductive and sensorineural hearing loss of right ear with restricted hearing of left ear No family history of adverse response to anesthesia Obesity, morbid, BMI 40.0-49.9 Pleural effusion Sensorineural hearing loss of both 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) Trauma of upper extremity Vitamin D deficiency Surgical History History of cataract surgery History of dilatation and curettage History of ear surgery approx 1984 Hx of tonsillectomy 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 - Tapan Weinstein MD - 02/2022 Family History Family/Other Family history of coronary arteriosclerosis Depression Mother Cardiovascular disease Diabetes Other Family history of bleeding disorder No family history of adverse response to anesthesia Social History Smoking Status: Former smoker Tobacco Type: Cigarettes Age Started Using Tobacco: 15; packs per day: 1; Years Smoked: 50; Number of Years Since Quit: 15; Hx Alcohol Use: No Hx Substance Use: No Preferred Language: Hungarian Communication Ability: Effective Hearing Ability: Hard of Hearing Fitness Consultant Required: No Beliefs That Will Affect Care: None marital status: / Current Living Situation: Family Current Living Situation Comment: house current occupational status: retired current occupation: worked in the [employer] How many Children do You have: 2 Other Information That Helps Us Care for You: No Feels Safe at Home: Yes Safety Concerns: Feels Safe At This Time caffeine: Yes during the past year weight has: decreased > 10 lbs Do you think of yourself as: straight/heterosexual Gender Identity: Female Assistive Devices: Denture - Upper, Denture - Lower, Glasses and Hearing Aid - Bilateral Results & Data Results & Data ([facility]) Vital Signs (Past 12 Hours) Vital Signs Temp Pulse Pulse Pulse Resp BP BP 06/09/22 15:52 66 24 163/52 H 06/09/22 15:47 76 19 176/51 H 06/09/22 15:01 66 24 06/09/22 15:01 66 24 163/52 H 06/09/22 14:44 199/65 H 06/09/22 14:30 63 23 06/09/22 14:18 65 18 195/65 H 06/09/22 13:33 66 25 H 06/09/22 13:33 66 182/50 H 06/09/22 13:27 65 25 H 06/09/22 13:27 200/66 H 06/09/22 13:24 65 24 06/09/22 13:24 200/65 H 06/09/22 13:18 69 20 06/09/22 13:18 203/70 H 06/09/22 13:00 65 22 06/09/22 12:00 68 18 06/09/22 11:57 96 H 06/09/22 10:18 201/59 H 06/09/22 10:18 68 18 06/09/22 10:00 66 18 06/09/22 09:00 69 20 06/09/22 07:58 36.5 C 72 17 198/100 H 06/09/22 07:59 36.5 C 72 16 182/65 H BP Pulse Ox O2 Del Method 06/09/22 15:52 100 Room Air 06/09/22 15:47 99 Room Air 06/09/22 15:01 100 06/09/22 15:01 100 Room Air 06/09/22 14:44 06/09/22 14:30 100 06/09/22 14:18 06/09/22 13:33 100 06/09/22 13:33 06/09/22 13:27 99 06/09/22 13:27 06/09/22 13:24 100 06/09/22 13:24 06/09/22 13:18 98 06/09/22 13:18 06/09/22 13:00 96 06/09/22 12:00 06/09/22 11:57 06/09/22 10:18 06/09/22 10:18 100 06/09/22 10:00 100 06/09/22 09:00 99 06/09/22 07:58 182/65 H 100 Room Air 06/09/22 07:59 100 Room Air Critical Care Results & Data Vital Signs (Past 12 Hours) Vital Signs Temp Pulse Pulse Pulse Resp BP BP 06/09/22 16:45 63 24 146/61 H 06/09/22 16:30 67 28 H 149/77 H 06/09/22 16:15 68 20 157/76 H 06/09/22 16:11 68 06/09/22 15:52 66 24 163/52 H 06/09/22 15:47 76 19 176/51 H 06/09/22 15:01 66 24 06/09/22 15:01 66 24 163/52 H 06/09/22 14:44 199/65 H 06/09/22 14:30 63 23 06/09/22 14:18 65 18 195/65 H 06/09/22 13:33 66 25 H 06/09/22 13:33 66 182/50 H 06/09/22 13:27 65 25 H 06/09/22 13:27 200/66 H 06/09/22 13:24 65 24 06/09/22 13:24 200/65 H 06/09/22 13:18 69 20 06/09/22 13:18 203/70 H 06/09/22 13:00 65 22 06/09/22 12:00 68 18 06/09/22 11:57 96 H 06/09/22 10:18 201/59 H 06/09/22 10:18 68 18 06/09/22 10:00 66 18 06/09/22 09:00 69 20 06/09/22 07:58 36.5 C 72 17 198/100 H 06/09/22 07:59 36.5 C 72 16 182/65 H BP Pulse Ox O2 Del Method 06/09/22 16:45 100 Room Air 06/09/22 16:30 99 Room Air 06/09/22 16:15 99 Room Air 06/09/22 16:11 06/09/22 15:52 100 Room Air 06/09/22 15:47 99 Room Air 06/09/22 15:01 100 06/09/22 15:01 100 Room Air 06/09/22 14:44 06/09/22 14:30 100 06/09/22 14:18 06/09/22 13:33 100 06/09/22 13:33 06/09/22 13:27 99 06/09/22 13:27 06/09/22 13:24 100 06/09/22 13:24 06/09/22 13:18 98 06/09/22 13:18 06/09/22 13:00 96 06/09/22 12:00 06/09/22 11:57 06/09/22 10:18 06/09/22 10:18 100 06/09/22 10:00 100 06/09/22 09:00 99 06/09/22 07:58 182/65 H 100 Room Air 06/09/22 07:59 100 Room Air Lab & Micro Results (Past 24 Hours) RBC 4.20 M/uL (3.93-5.22) 06/09/22 WBC 4.90 K/ul (4.8-10.8) 06/09/22 Hgb 10.9 g/dl (12.0-16.0) L 06/09/22 Hct 33.7 % (34.1-44.9) L 06/09/22 MCV 80.2 fL (80.0-100.0) 06/09/22 MCH 26.0 pg (25.0-34.0) 06/09/22 MCHC 32.3 g/dL (32.0-36.0) 06/09/22 RDW Standard Deviation 52.4 fL (36.4-46.3) H 06/09/22 RDW Coefficient of Variation 18.0 % (11.5-14.5) H 06/09/22 Plt Count 259 K/uL (130-400) 06/09/22 MPV 12.2 fL (9.4-12.3) 06/09/22 Neutrophils (%) (Auto) 58.6 % 06/09/22 Lymphocytes (%) (Auto) 26.5 % 06/09/22 Monocytes # (Auto) 0.48 K/uL (0.24-0.82) 06/09/22 Eosinophils # (Auto) 0.18 K/uL (0-0.50) 06/09/22 Immature Granulocyte % (Auto) 0.4 % 06/09/22 Neutrophils # (Auto) 2.87 K/uL (1.4-6.5) 06/09/22 Lymphocytes # (Auto) 1.30 K/uL (1.2-3.4) 06/09/22 Monocytes # (Auto) 0.48 K/uL (0.24-0.82) 06/09/22 Eosinophils # (Auto) 0.18 K/uL (0-0.50) 06/09/22 Basophils # (Auto) 0.05 K/uL (0-0.2) 06/09/22 Immature Granulocyte # (Auto) 0.02 K/uL (0.00-0.02) 2 Na 137 mmol/L (136-145) 06/09/22 K 4.8 mmol/L (3.5-5.1) 06/09/22 Cl 99 mmol/L (98-107) 06/09/22 CO2 30 mmol/L (21-32) 06/09/22 Anion Gap 8 (3-11) 06/09/22 BUN 37 mg/dl (6-23) H 06/09/22 Creatinine 1.25 mg/dl (0.6-1.2) H 06/09/22 Estimated GFR ( Amer) 45.7 ml/min 06/09/22 Estimated GFR (Non-Af Amer) 39.5 ml/min 06/09/22 BUN/Creatinine Ratio 29.6 (10-20) H 06/09/22 Glu 117 mg/dl (70-99(Fasting)) H 06/09/22 Ca 9.5 mg/dl (8.5-10.1) 06/09/22 Total Bilirubin 0.3 mg/dl (0.2-1.0) 06/09/22 AST 19 U/L (13-39) 06/09/22 ALT 18 U/L (7-52) 06/09/22 Alkaline Phosphatase 54 U/L (34-104) 06/09/22 TP 6.7 gm/dl (6.0-8.3) 06/09/22 Albumin 4.0 gm/dl (3.4-5.0) 06/09/22 Globulin 2.7 gm/dl (2.5-4.0) 06/09/22 Albumin/Globulin Ratio 1.5 (0.9-2) 06/09/22 Calcium Level 9.5 mg/dl (8.5-10.1) 06/09/22 07:50 Diagnostic Findings (Past 24 Hours) Head CT 06/09/22 09:14 CT head/brain wo con CLINICAL HISTORY: 82 years-old Female with Fall w [facility]. Acute head trauma status post fall TECHNIQUE: Multiple axial CT images of the head were obtained without contrast. A dose lowering technique was utilized adhering to the principles of ALARA. CT DOSE: 537.48 mGy.cm COMPARISON: Head CT 02/21/2022, brain MRI 10/24/2021 FINDINGS: Small amount of acute subarachnoid hemorrhage is noted in the right sylvian fissure, image 12 series 2. There is no midline shift, intracranial mass, hydrocephalus, territorial ischemia or abnormal extra-axial collection. Involutional changes. White matter hypodensities suggest chronic microvascular ischemic disease. Study is mildly motion degraded. Cerebral vascular calcifications. The calvarium is intact. Trace mastoid effusions. Hypoplastic frontal sinuses. Unremarkable soft tissues. Prior bilateral lens repair. IMPRESSION: Small amount of acute subarachnoid hemorrhage within the right sylvian fissure. 24-hour follow-up head CT is recommended. ACT 112: Negative or not required by law. The above report was generated using voice recognition software. It may contain grammatical, syntax or spelling errors. Electronically signed by: Pino Childress M.D. 06/09/2022 9:[address] 06/09/22 10:50 CT cervical spine wo con CT DOSE: 1217.05 mGy.cm CLINICAL HISTORY: 82 years-old Female with Trauma. Acute posttraumatic neck pain COMPARISON: Chest CT of same day TECHNIQUE: Multiple axial CT images of the cervical spine were obtained without contrast. A dose lowering technique was utilized adhering to the principles of ALARA. FINDINGS: Multilevel degenerative changes include severe disc space narrowing at T2-T3 and T3-T4 with severe multilevel facet arthrosis. Demineralized appearance of the bones. Multilevel neural foraminal narrowing. Mild paravertebral edema. Upper thoracic spine. Partially imaged left subclavian pacer leads. Atherosclerosis of the carotid bulbs. No prevertebral edema. The visualized lung apices appear clear. IMPRESSION: 1. No acute cervical spine fracture or subluxation. 2. Mild nonspecific paravertebral edema of the upper thoracic spine without acute upper thoracic osseous abnormality identified. Findings may be on a degenerative basis. Occult fracture is considered less likely. ACT 112: Negative or not required by law. The above report was generated using voice recognition software. It may contain grammatical, syntax or spelling errors. Electronically signed by: Pino Childress M.D. 06/09/2022 12:[address] 06/09/22 10:[address] WITH CONTRAST HISTORY: Acute chest and right-sided back pain status post trauma Trauma, R back pain TECHNIQUE: Multiaxial CT images of the chest were performed following the IV administration of 94 cc of Optiray. A dose lowering technique was utilized adhering to the principles of ALARA. COMPARISON: CT cervical spine of same day, CTA chest 06/05/2022, chest CT 10/07/2017, 07/22/2017. FINDINGS: Unremarkable thyroid. Nonspecific mildly enlarged subcarinal lymph nodes measure up to 10 mm, likely benign. Moderate to marked cardiomegaly with cardiac pacer. Extensive [place] band coronary artery calcifications. Trace pericardial effusion. Dilation of the pulmonary arteries suggestive of pulmonary arterial hypertension. Atherosclerosis of the aorta without aneurysm. Mild left hemidiaphragmatic elevation. Mild pulmonary emphysema without pneumothorax. Mild subpleural reticulation of the upper lobes suggestive of scarring. There is a 4 mm solid nodule noted within the superior segment of the left lower lobe, image 91 which in retrospect is unchanged. Evaluation of the lungs is limited secondary to respiratory motion artifact. There are 2 subadjacent solid pulmonary nodules in the right lower lobe on image 134 measuring up to 4 mm. There is a suggested 6 cm solid nodule right lower lobe on image 200. These nodules overall are of low clinical suspicion as visualized. Central airways are patent. Mild nonspecific wall thickening of the esophagus, most pronounced distally with mild diffuse gaseous distention. Moderate fecal retention of the colon. Mild nonspecific paravertebral edema of the upper thoracic spine. Degenerative changes of the spine and shoulders. Prominent bridging multilevel anterior endplate predominant osteophytosis. Severe intervertebral disc space narrowing at T2-T3 and T3-T4. Paravertebral edema is noted at these levels. No acute fracture or endplate erosion identified. Mild mid thoracic dextroscoliosis. IMPRESSION: 1. Limited exam as above. No acute intrathoracic abnormality identified. 2. Mild paravertebral edema of the upper thoracic spine . No acute fracture or subluxation is identified. These findings are likely on a degenerative basis. An occult fracture is considered less likely. 3. Severe intervertebral disc space narrowing at T2-T3 and T3-T4. 4. Additional findings as above. ACT 112: Negative or not required by law. Electronically signed by: Pino Childress M.D. 06/09/2022 12:37 PM I & O Totals 24 Hours 06/08/22 06/09/22 06/10/22 06:59 06:59 06:59 Intake Total 108 / 108 Balance 108 / 108 Cumulative 06/09/22 07:30 thru 06/09/22 15:47 Intake Total 108 Balance 108 RT Ventilator Mngmt (Last Documented) Ventilator Ordered Settings Respiratory Rate 24 06/09/22 16:45 Ventilator - PT Measurements Respiratory Rate 24 Coding Level of Care Code Critical Care 1st 30-74 mins Diagnoses SAH (subarachnoid hemorrhage) I60.9 Fall W19.XXXA (HFpEF) heart failure with preserved ejection fraction I50.30 Pacemaker Z95.0 Congestive heart failure I50.9 Hyponatremia E87.1 Essential hypertension I10 Renal artery stenosis I70.1 Status post placement of cardiac pacemaker Z95.0 H/O transient ischemic attack involving anterior circulation Z86.73 Traumatic wound Chronic kidney disease, stage 3 (moderate) N18.30 Chronic kidney disease stage 3 subtype: unspecified whether 3a or 3b Diabetes mellitus, type II E11.9 Obesity, morbid, BMI 40.0-49.9 E66.01 Time Spent (min) 65 (1) Chronic kidney disease, stage 3 (moderate) Chronic kidney disease stage 3 subtype: unspecified whether 3a or 3b Qualified Code(s): N18.30 - Chronic kidney disease, stage 3 unspecified
[2022-06-09] MEDS ORDERED: ICU PROTOCOL FOR HYPERGLYCEMIA PRN (16:48)
[2022-06-09] MEDS ORDERED: ALBUTEROL HFA 8 GM INHALER INH PRN (17:00)
[2022-06-09] MEDS ORDERED: FUROSEMIDE 20 MG TAB PO PRN (17:21)
[2022-06-09] MEDS: FUROSEMIDE 40 MG TAB PO SCH (17:45)
[2022-06-09] MEDS: LIDOCAINE 5% 1 PATCH TD SCH (17:45)
[2022-06-09] MEDS: CYCLOBENZAPRINE HCL 5 MG TAB PO PRN (17:48)
[2022-06-09] MEDS: OLANZapine 10 MG TAB PO SCH (20:04)
[2022-06-09] MEDS: OLANZAPINE 2.5 MG TAB PO SCH (20:05)
[2022-06-09] MEDS: MIRTAZAPINE TAB 15 MG TAB PO SCH (20:05)
[2022-06-09] MEDS: hydrALAZINE HCL 25 MG TAB PO SCH (20:05)
[2022-06-09] MEDS: ATORVASTATIN 40 MG TAB PO SCH (20:06)
[2022-06-09] MEDS: METHYLPHENIDATE HCL 10 MG TABLET PO SCH (20:09)
[2022-06-10 05:10] LABS: Basophils # (auto) 0.03 K/uL (0-0.2); Basophils % (auto) 0.4 %; Eosinophils # (auto) 0.05 K/uL (0-0.50); Eosinophils % (auto) 0.7 %; Hematocrit (blood only) 31.6 % (34.1-44.9); Hemoglobin 10.5 g/dl (12.0-16.0); Immature Granulocytes # (auto) 0.03 K/uL (0.00-0.02); Immature Granulocytes % (auto) 0.4 %; Lymphocytes # (auto) 0.96 K/uL (1.2-3.4); Lymphocytes % (auto) 13.6 %; Mean Corpuscular Hemoglobin 26.3 pg (25.0-34.0); Mean Corpuscular Hgb Conc 33.2 g/dL (32.0-36.0); Mean Platelet Volume 10.5 fL (9.4-12.3); Monocytes % (auto) 8.5 %; Neutrophils # (auto) 5.39 K/uL (1.4-6.5); Neutrophils % (auto) 76.4 %; Platelet Count 248 K/uL (130-400); RDW Coefficient of Variation 18.3 % (11.5-14.5); RDW Standard Deviation 52.9 fL (36.4-46.3); White Blood Count 7.06 K/ul (4.8-10.8)
[2022-06-10 05:27] LABS: INR 1.1 (0.9-1.1); Prothrombin Time 11.5 Seconds (9.0-12.0)
[2022-06-10 05:33] LABS: BUN Creatinine Ratio 31.7 (10-20); Calcium 9.2 mg/dl (8.5-10.1); Creatinine Clr Calc Pharmacy 31.2 ml/min; Est GFR (African American) 48.1 ml/min; Est GFR (Non-African American) 41.5 ml/min; Magnesium 2.1 mg/dl (1.7-2.4); Phosphorus 4.1 mg/dl (2.5-4.9); Potassium 4.1 mmol/L (3.5-5.1)
[2022-06-10] MEDS: amLODIPine BESYLATE 5 MG TAB PO SCH (07:55)
[2022-06-10] MEDS: CHOLECALCIFEROL 1,000 UNITS 25 MCG TAB PO SCH (07:55)
[2022-06-10] MEDS: CYANOCOBALAMIN (B-12) 2,500 MCG TABLET SL SCH (07:55)
[2022-06-10] MEDS: FUROSEMIDE 40 MG TAB PO SCH (07:56)
[2022-06-10] MEDS: TOCOPHERYL, DL-ALPHA 400 UNITS 180 MG CAP PO SCH (07:56)
[2022-06-10] MEDS: LIDOCAINE 5% 1 PATCH TD SCH (07:57)
[2022-06-10] MEDS: hydrALAZINE HCL 25 MG TAB PO SCH (07:57)
[2022-06-10] MEDS: METOPROLOL SUCC 50MG EXT REL TAB PO SCH (07:58)
[2022-06-10] MEDS: lisinopril 20 MG TAB PO SCH ×2 (07:58→20:18)
[2022-06-10] MEDS: VENLAFAXINE HCL XR 150 MG CAPXR PO SCH (07:59)
[2022-06-10] MEDS: OLANZapine 10 MG TAB PO SCH ×2 (07:59→20:18)
[2022-06-10] MEDS: METHYLPHENIDATE HCL 10 MG TABLET PO SCH ×3 (08:02→20:54)
[2022-06-10] MEDS: niCARdipine 25 MG in SODIUM CHLORIDE 0.9% 240 ML IV SCH ×2 (08:20→15:52)
[2022-06-10] MEDS ORDERED: Nursing to Pharmacy Communication SCH (08:45)
--- NOTE | 2022-06-10 08:48 | Critical Care Progress Note ---
Date of Service June 10, 2022 Assessment & Plan (1) SAH (subarachnoid hemorrhage): Plan: Reason Critically Ill: 82-year-old female with traumatic subarachnoid and significant hypertension PLAN: Neuro: Mechanical fall -Reviewed CT chest and cervical spine: Mild paravertebral edema of the upper thoracic spine -Lidocaine patch as needed -Flexeril 5 mg Small acute subarachnoid hemorrhage noted in the right sylvian fissure. Repeat CT head ordered for today. Maintain systolic blood pressures under 160. Major depressive episode -Zyprexa 10 mg daily also written for 12.5 mg nightly -Psychiatry note from 09/27/2021 reports 10 mg of Zyprexa daily -Follows with psychiatry: Mat -Ritalin 10 mg 3 times daily per psychiatry Resp: No PFTs available for review. She has been seen in the pulmonary clinic in the past. No supplemental oxygen requirements at this time. CV: Peripheral arterial disease: Renal artery stenosis, bilateral carotid stenoses -Plavix: Hold -Atorvastatin 40 mg nightly History heart failure with preserved ejection fraction -Lisinopril 20 mg twice daily: Chronic medication -Toprol-XL 50 mg daily -Hydralazine 25 mg by mouth 3 times daily -Lasix 20 mg daily Hypertension -IV nicardipine decrease systolic blood pressure to at least 160 -Patient was given morning meds continue chronic meds -Suspect some of the hypertension is related to acute pain response status post fall -10 mg amlodipine daily Fluids/Renal: Chronic kidney disease stage III -Close follow-up with primary care 1800 mL fluid restriction GI/Nutrition: AHA diet Heme: Anemia: -Appears near baseline DVT prophylaxis: SCDs, chemical prophylaxis contraindicated Endocrine: ICU hyperglycemia protocol Diabetes type 2 -05/17/2022 A1c 5.6 Vascular access: Peripheral IVs Code Status: DNR in event of cardiac arrest DNI in event of respiratory insufficiency, would not want heroic measures undertaken in event of significant intracranial hemorrhage Disposition: Once she is off nicardipine, the patient can downgrade out of the ICU. (2) Fall: (3) (HFpEF) heart failure with preserved ejection fraction: (4) Pacemaker: (5) Congestive heart failure: (6) Hyponatremia: (7) Essential hypertension: (8) Renal artery stenosis: (9) Status post placement of cardiac pacemaker: (10) H/O transient ischemic attack involving anterior circulation: (11) Traumatic wound: (12) Chronic kidney disease, stage 3 (moderate): (13) Diabetes mellitus, type II: Admission and Anticipated Discharge Date Admission Date: June 09, 2022 Subjective Patient seen and examined. Denies headache, nausea or vomiting. Denies chest pain. Currently on a low-dose nicardipine drip. Tolerating this well. Systolic blood pressures in the low 160s. Tolerating p.o. intake. Review of Systems Review of Systems: All systems reviewed & are unremarkable except as noted in HPI & below Physical Exam Physical Exam: Constitutional: Elderly appearing female no apparent distress. Eyes: Pupils are equal round and reactive to light. Conjunctivae are normal. Anicteric sclera. Ears nose, mouth and throat: Deferred. Neck: Trachea is midline. Visual inspection is normal. Respiratory: Clear to auscultation bilaterally. No use of accessory muscles. No significant clubbing noted. Cardiovascular: Regular rate and rhythm. No murmurs. No edema. Gastrointestinal: Normal bowel sounds, soft, nontender and nondistended. No hepatosplenomegaly noted. Musculoskeletal: No cyanosis. Patient is able to move all extremities. Strength is 5 out of 5 in the upper and lower extremities. Skin: No rashes, warm dry and intact. Neurologic: No obvious focal neurological deficits seen. Psychiatric: Alert and oriented x3 with a euthymic affect. Results & Data Results & Data ([facility]) Vital Signs (Past 12 Hours) Vital Signs Temp Pulse Pulse Resp BP BP Pulse Ox 06/10/22 08:30 69 23 161/61 H 98 06/10/22 08:15 68 22 153/52 H 99 06/10/22 07:46 71 23 166/52 H 98 06/10/22 07:31 74 21 132/59 L 96 06/10/22 07:15 69 21 153/64 H 95 06/10/22 07:00 71 20 160/79 H 97 06/10/22 06:45 72 18 156/68 H 98 06/10/22 08:00 36.8 C 71 21 159/51 H 97 06/10/22 07:00 73 06/10/22 06:30 71 18 94 06/10/22 06:30 147/62 H 06/10/22 06:15 71 17 97 06/10/22 06:15 156/52 H 06/10/22 06:00 68 15 98 06/10/22 06:00 148/43 H 06/10/22 05:45 71 16 99 06/10/22 05:45 142/69 H 06/10/22 05:30 72 15 98 06/10/22 05:30 156/65 H 06/10/22 05:15 70 15 90 06/10/22 05:15 143/63 H 06/10/22 05:00 70 17 94 06/10/22 05:00 149/62 H 06/10/22 04:45 76 21 95 06/10/22 04:45 153/50 H 06/10/22 04:30 70 21 97 06/10/22 04:30 152/48 H 06/10/22 04:15 73 21 92 06/10/22 04:15 154/47 H 06/10/22 04:00 36.7 C 06/10/22 04:00 70 19 95 06/10/22 04:00 160/51 H 06/10/22 03:45 71 19 97 06/10/22 03:45 153/47 H 06/10/22 03:30 75 28 H 92 06/10/22 03:30 155/49 H 06/10/22 03:15 70 17 96 06/10/22 03:15 145/50 H 06/10/22 03:00 73 19 96 06/10/22 03:00 158/51 H 06/10/22 02:45 76 23 96 06/10/22 02:45 165/48 H 06/10/22 02:30 73 19 93 06/10/22 02:30 158/43 H 06/10/22 02:15 66 18 94 06/10/22 02:15 158/54 H 06/10/22 02:00 72 19 92 06/10/22 02:00 146/52 H 06/10/22 01:45 72 23 97 06/10/22 01:45 150/47 H 06/10/22 01:30 72 24 95 06/10/22 01:30 166/67 H 06/10/22 01:15 70 19 97 06/10/22 01:15 158/48 H 06/10/22 01:00 75 22 97 06/10/22 01:00 145/42 H 06/10/22 00:45 74 17 96 06/10/22 00:45 161/51 H 06/10/22 00:30 73 22 95 06/10/22 00:30 146/62 H 06/10/22 00:15 71 18 96 06/10/22 00:15 150/43 H 06/10/22 00:00 66 22 94 06/10/22 00:00 144/54 H 06/09/22 23:45 71 19 94 06/09/22 23:45 152/48 H 06/09/22 23:30 69 22 94 06/09/22 23:30 163/42 H 06/09/22 23:15 67 19 97 06/09/22 23:15 142/59 H 06/09/22 23:00 68 22 96 06/09/22 23:00 141/49 H 06/09/22 22:45 66 20 91 06/09/22 22:45 145/63 H 06/09/22 22:33 138/43 L 06/09/22 22:33 67 21 95 06/10/22 00:00 68 06/09/22 23:56 36.6 C 06/09/22 22:30 66 20 94 06/09/22 22:16 147/66 H 06/09/22 22:16 65 20 95 06/09/22 22:15 64 19 95 06/09/22 22:00 60 18 98 06/09/22 22:00 144/42 H 06/09/22 21:45 62 21 94 06/09/22 21:45 138/48 L 06/09/22 21:30 63 20 95 06/09/22 21:30 139/38 L 06/09/22 21:15 60 19 96 06/09/22 21:15 133/79 06/09/22 21:00 61 19 94 06/09/22 21:00 136/43 L 06/09/22 20:45 63 21 91 06/09/22 20:45 132/75 O2 Del Method 06/10/22 08:30 Room Air 06/10/22 08:15 Room Air 06/10/22 07:46 Room Air 06/10/22 07:31 Room Air 06/10/22 07:15 Room Air 06/10/22 07:00 Room Air 06/10/22 06:45 Room Air 06/10/22 08:00 Room Air 06/10/22 07:00 06/10/22 06:30 06/10/22 06:30 06/10/22 06:15 06/10/22 06:15 06/10/22 06:00 06/10/22 06:00 06/10/22 05:45 06/10/22 05:45 06/10/22 05:30 06/10/22 05:30 06/10/22 05:15 06/10/22 05:15 06/10/22 05:00 06/10/22 05:00 06/10/22 04:45 06/10/22 04:45 06/10/22 04:30 06/10/22 04:30 06/10/22 04:15 06/10/22 04:15 06/10/22 04:00 06/10/22 04:00 06/10/22 04:00 06/10/22 03:45 06/10/22 03:45 06/10/22 03:30 06/10/22 03:30 06/10/22 03:15 06/10/22 03:15 06/10/22 03:00 06/10/22 03:00 06/10/22 02:45 06/10/22 02:45 06/10/22 02:30 06/10/22 02:30 06/10/22 02:15 06/10/22 02:15 06/10/22 02:00 06/10/22 02:00 06/10/22 01:45 06/10/22 01:45 06/10/22 01:30 06/10/22 01:30 06/10/22 01:15 06/10/22 01:06/10/22 01:00 06/10/22 01:00 06/10/22 00:45 06/10/22 00:45 06/10/22 00:30 06/10/22 00:30 06/10/22 00:15 06/10/22 00:06/10/22 00:00 06/10/22 00:00 06/09/22 23:45 06/09/22 23:45 06/09/22 23:30 06/09/22 23:30 06/09/22 23:15 06/09/22 23:15 06/09/22 23:00 06/09/22 23:00 06/09/22 22:45 06/09/22 22:45 06/09/22 22:33 06/09/22 22:33 06/10/22 00:00 06/09/22 23:56 06/09/22 22:30 06/09/22 22:16 06/09/22 22:16 06/09/22 22:15 06/09/22 22:00 06/09/22 22:00 06/09/22 21:45 06/09/22 21:45 06/09/22 21:30 06/09/22 21:30 06/09/22 21:15 06/09/22 21:15 06/09/22 21:00 06/09/22 21:00 06/09/22 20:45 06/09/22 20:45 Coding Level of Care Code Critical Care 1st 30-74 mins Diagnoses SAH (subarachnoid hemorrhage) I60.9 Fall W19.XXXA Encounter type: initial encounter (HFpEF) heart failure with preserved ejection fraction I50.30 Pacemaker Z95.0 Congestive heart failure I50.9 Hyponatremia E87.1 Essential hypertension I10 Renal artery stenosis I70.1 Status post placement of cardiac pacemaker Z95.0 H/O transient ischemic attack involving anterior circulation Z86.73 Traumatic wound Chronic kidney disease, stage 3 (moderate) N18.30 Chronic kidney disease stage 3 subtype: unspecified whether 3a or 3b Diabetes mellitus, type II E11.9 Time Spent (min) 32 (1) Fall Encounter type: initial encounter Qualified Code(s): W19.XXXA - Unspecified fall, initial encounter (2) Chronic kidney disease, stage 3 (moderate) Chronic kidney disease stage 3 subtype: unspecified whether 3a or 3b Qualified Code(s): N18.30 - Chronic kidney disease, stage 3 unspecified
[2022-06-10] MEDS ORDERED: LIDOCAINE 5% 1 PATCH TD SCH (09:00)
--- NOTE | 2022-06-10 09:21 | CT Scan Report ---
HEAD CT NONCONTRAST CT DOSE: 788.63 mGycm HISTORY: Subarachnoid hemorrhage. Follow-up. TECHNIQUE: Multiaxial CT images of the head were performed without the use of intravenous contrast. A utomated exposure control was utilized for this study. A dose lowering technique was utilized adheri ng to the principles of ALARA. Comparison: Head CT 06/09/2022. Findings: The paranasal sinuses and mastoid air cells are clear. The calvarium and skull base are int act. Trace subarachnoid hemorrhage at the right sylvian fissure on image 14 has improved in the inter augustine. No additional areas of hemorrhage identified within the brain. Mild atrophy and microvascular is chemic changes are again noted. Impression: Interval improvement in the trace subarachnoid hemorrhage at the right sylvian fissure. Continued 24- [address] follow-up recommended to ensure complete resolution. ACT 112: Negative or not required by law. Electronically signed by: Willam Reyes M.D. 06/10/2022 9:20 AM
[2022-06-10] MEDS ORDERED: hydrALAZINE HCL 25 MG TAB PO STA (09:41)
[2022-06-10] MEDS ORDERED: cloNIDine HCL 0.1 MG TAB PO ONE (09:45)
[2022-06-10] MEDS ORDERED: DEXTROSE 50% 50 ML SYRINGE IV PRN (10:15)
[2022-06-10] MEDS ORDERED: GLUCAGON FOR INJ 1 MG VIAL IM PRN (10:15)
[2022-06-10] MEDS ORDERED: GLUCOSE 10 TAB/TUBE PO PRN (10:15)
[2022-06-10] MEDS ORDERED: GLUCOSE 40% GEL 15 GM TUBE PO PRN (10:15)
[2022-06-10] MEDS ORDERED: CARBOHYDRATES FOR HYPOGLYCEMIA PO PRN (10:15)
[2022-06-10] MEDS: INSULIN ASPART PER UNIT SC SCH ×3 (11:55→20:54)
[2022-06-10] MEDS: hydrALAZINE TAB 50 MG TAB PO SCH ×2 (13:54→20:19)
[2022-06-10] MEDS: OLANZAPINE 2.5 MG TAB PO SCH (20:18)
[2022-06-10] MEDS: MIRTAZAPINE TAB 15 MG TAB PO SCH (20:19)
[2022-06-10] MEDS: ATORVASTATIN 40 MG TAB PO SCH (20:19)
--- NOTE | 2022-06-10 22:02 | Hospitalist Progress Note ---
Date of Service June 10, 2022 Assessment & Plan (1) SAH (subarachnoid hemorrhage): Plan: - Head CT shows a small acute subarachnoid hemorrhage within the right sylvian fissure. - s/p mechanical fall. - Patient AAO x3 without any neuro deficits. - ED provider spoke with neurosurgery at [facility], who declined transfer. Given small size, they indicated surgical intervention would not presently be required and recommended keeping the patient here for observation with tight BP control and repeat head CT in 24 hours or sooner if patient develops neuro deficits or becomes unstable. - Patient to be admitted to the ICU with nicardipine gtt with goal SBP < 160. - Repeat CT scan of head showed improvement. - will transfer patient out of the ICU, hold Plavix (last dose evening of 06/08). (2) Fall: Plan: - mechanical, at home this AM. - SAH as above. - Right elbow and right ear laceration repaired in ED, with 1 time dose of Unasyn given. - Tylenol, lidocaine for pain management. (3) Essential hypertension: Plan: - HTNsive on admisison SBP 200s in setting of missing all morning BP meds--lisinopril 20 gm BID, metoprolol 50 mg in AM, amlodipine 10 mg in AM, hydralazine 25 mg TID - Given all BP meds in ED-- repeat BP 180/60s. - Admit to ICU with nicardipine gtt with SBP goal < 160 in setting of SAH. - Off nicardipine drip on 06/10 (4) Renal artery stenosis: Plan: - Due for CTA to assess renal arteries this Friday. - Follows w/ Dr. Rowland for vascular. Dr. Lee for CKD, HTN. (5) Carotid artery stenosis: Plan: - Carotid U/S in April showed unchanged > 70% stenosis of R ICA, 50-69% stenosis of L ICA - Continue statin, holding Plavix for now given SAH. (6) Chronic kidney disease, stage 3 (moderate): Plan: - BUN, creatinine slightly elevated from baseline. - With renal artery stenosis, hypertension not well controlled despite being on 4 oral medications at home. - Continue to monitor renal function daily with aggressive hypertension management (7) Diabetes mellitus, type II: Plan: - On metformin, hold while admitted. - ICU hyperglycemic protol while in ICU. - Clear liquid diet now, advance will be on cc/DM2 diet. (8) Anemia: Plan: - Hgb 10.9, stable, of CKD. - Continue to monitor. (9) (HFpEF) heart failure with preserved ejection fraction: Plan: - Continue Lasix 20 mg daily, with additional 20 mg dose for total of 40 mg daily with s/s of hypervolemia. (10) Severe recurrent major depression with psychotic features: Plan: - Continue olanzapine, mirtazapeine, and venlafaxine. Also on Ritalin 10 mg TID. Plan - Admit to ICU for nicardipine gtt for tight BP control. - SCDs; no chemoppx in setting of acute SAH. - DNR/DNI. Admission and Anticipated Discharge Date Admission Date: June 09, 2022 Subjective 82 yo female reports feeling well. She has no new complaints. Review of Systems Review of Systems: All systems reviewed & are unremarkable except as noted in HPI & below Physical Exam Physical Exam: Constitutional: Elderly appearing female no apparent distress. Eyes: Pupils are equal round and reactive to light. Conjunctivae are normal. Anicteric sclera. Ears nose, mouth and throat: Deferred. Neck: Trachea is midline. Visual inspection is normal. Respiratory: Clear to auscultation bilaterally. No use of accessory muscles. No significant clubbing noted. Cardiovascular: Regular rate and rhythm. No murmurs. No edema. Gastrointestinal: Normal bowel sounds, soft, nontender and nondistended. No hepatosplenomegaly noted. Musculoskeletal: No cyanosis. Patient is able to move all extremities. Strength is 5 out of 5 in the upper and lower extremities. Skin: No rashes, warm dry and intact. Neurologic: No obvious focal neurological deficits seen. Psychiatric: Alert and oriented x3 with a euthymic affect. Results & Data Results & Data ([facility]) Vital Signs (Past 12 Hours) Vital Signs Temp Pulse Resp BP Pulse Ox O2 Del Method 06/10/22 20:00 61 18 96 06/10/22 20:00 162/53 H 06/10/22 19:30 65 17 94 06/10/22 19:00 60 22 99 06/10/22 19:00 156/57 H 06/10/22 20:10 37 C 06/10/22 18:30 62 20 164/53 H 97 Room Air 06/10/22 18:00 60 20 155/54 H 97 Room Air 06/10/22 17:30 62 17 153/64 H 97 Room Air 06/10/22 17:00 62 22 147/48 H 97 Room Air 06/10/22 16:30 68 20 151/50 H 96 Room Air 06/10/22 16:00 60 19 144/48 H 98 Room Air 06/10/22 15:30 62 23 132/61 97 Room Air 06/10/22 15:01 61 15 128/47 L 98 Room Air 06/10/22 14:30 60 18 131/87 97 Room Air 06/10/22 14:20 61 22 134/43 L 97 Room Air 06/10/22 14:01 61 21 136/87 97 Room Air 06/10/22 13:55 61 24 139/44 L 98 Room Air 06/10/22 16:00 36.6 C 06/10/22 16:00 62 06/10/22 13:30 62 20 147/45 H 98 Room Air 06/10/22 13:00 61 20 147/52 H 98 Room Air 06/10/22 12:30 60 19 145/44 H 97 Room Air 06/10/22 12:00 62 22 142/46 H 99 Room Air 06/10/22 11:45 60 23 144/49 H 98 Room Air 06/10/22 12:00 36.8 C 06/10/22 11:32 66 17 121/43 L 98 Room Air 06/10/22 11:17 60 20 146/46 H 99 Room Air 06/10/22 11:01 60 17 132/63 100 Room Air 06/10/22 10:45 61 20 155/47 H 97 Room Air 06/10/22 10:30 61 18 158/45 H 97 Room Air 06/10/22 10:15 63 17 153/50 H 98 Room Air PG Care Time/CCT Total # of Minutes Spent Total Time Spent with Patient: Total time spent is greater than 50% in coordination of care (as documented) at patient's floor/unit and/or counseling patient: Coding Level of Care Code 41158 Subseq Hosp Care Lvl 3 Diagnoses SAH (subarachnoid hemorrhage) I60.9 Fall W19.XXXA Encounter type: initial encounter Essential hypertension I10 Renal artery stenosis I70.1 Carotid artery stenosis I65.23 Laterality: bilateral Chronic kidney disease, stage 3 (moderate) N18.30 Chronic kidney disease stage 3 subtype: unspecified whether 3a or 3b Diabetes mellitus, type II E11.9 Anemia D64.9 (HFpEF) heart failure with preserved ejection fraction I50.30 Severe recurrent major depression with psychotic features F33.3 (1) Carotid artery stenosis Laterality: bilateral Qualified Code(s): I65.23 - Occlusion and stenosis of bilateral carotid arteries (2) Chronic kidney disease, stage 3 (moderate) Chronic kidney disease stage 3 subtype: unspecified whether 3a or 3b Qualified Code(s): N18.30 - Chronic kidney disease, stage 3 unspecified (3) Fall Encounter type: initial encounter Qualified Code(s): W19.XXXA - Unspecified fall, initial encounter
[2022-06-11 05:50] LABS: Basophils # (auto) 0.04 K/uL (0-0.2); Basophils % (auto) 0.7 %; Eosinophils % (auto) 3.5 %; Hematocrit (blood only) 31.6 % (34.1-44.9); Hemoglobin 10.2 g/dl (12.0-16.0); Immature Granulocytes # (auto) 0.02 K/uL (0.00-0.02); Immature Granulocytes % (auto) 0.4 %; Lymphocytes # (auto) 1.21 K/uL (1.2-3.4); Lymphocytes % (auto) 21.4 %; Mean Corpuscular Hemoglobin 25.8 pg (25.0-34.0); Mean Corpuscular Hgb Conc 32.3 g/dL (32.0-36.0); Monocytes # (auto) 0.62 K/uL (0.24-0.82); Neutrophils # (auto) 3.56 K/uL (1.4-6.5); Platelet Count 215 K/uL (130-400); RDW Coefficient of Variation 18.2 % (11.5-14.5); RDW Standard Deviation 52.8 fL (36.4-46.3); Red Blood Count 3.95 M/uL (3.93-5.22); White Blood Count 5.65 K/ul (4.8-10.8)
[2022-06-11 06:08] LABS: BUN Creatinine Ratio 35.3 (10-20); Creatinine Clr Calc Pharmacy 27.1 ml/min; Est GFR (African American) 40.2 ml/min; Est GFR (Non-African American) 34.7 ml/min; Phosphorus 4.7 mg/dl (2.5-4.9); Potassium 4.2 mmol/L (3.5-5.1)
[2022-06-11 06:09] LABS: INR 1.1 (0.9-1.1); Prothrombin Time 11.7 Seconds (9.0-12.0)
[2022-06-11] MEDS: INSULIN ASPART PER UNIT SC SCH ×4 (07:43→20:41)
--- NOTE | 2022-06-11 09:32 | CT Scan Report ---
CT head/brain wo con CLINICAL HISTORY: 82 years-old Female with reassess SAH. Follow-up study in a patient with acute sub arachnoid hemorrhage TECHNIQUE: Multiple axial CT images of the head were obtained without contrast. A dose lowering tech nique was utilized adhering to the principles of ALARA. CT DOSE: 537.48 mGy.cm COMPARISON: Head CT 06/10/2022, 06/09/2022. FINDINGS: There is near complete resolution of the previously described trace acute subarachnoid hemo rrhage within the right sylvian fissure. There is no midline shift, intracranial mass, hydrocephalus, territorial ischemia or abnormal extra-axial collection. Age-related involutional changes. White mat ter hypodensities suggestive of chronic microvascular ischemic disease. The study is mildly motion de graded. The calvarium is intact. Prior bilateral lens repair. The paranasal sinuses, mastoid air cells, and m iddle ear cavities are clear. IMPRESSION: Near-complete resolution of the trace acute subarachnoid hemorrhage within the right bakari vian fissure. ACT 112: Negative or not required by law. The above report was generated using voice recognition software. It may contain grammatical, syntax o r spelling errors. Electronically signed by: Pino Childress M.D. 06/11/2022 9:31 AM
[2022-06-11] MEDS: CYANOCOBALAMIN (B-12) 2,500 MCG TABLET SL SCH (10:39)
[2022-06-11] MEDS: amLODIPine BESYLATE 5 MG TAB PO SCH (10:39)
[2022-06-11] MEDS: FUROSEMIDE 40 MG TAB PO SCH (10:39)
[2022-06-11] MEDS: CHOLECALCIFEROL 1,000 UNITS 25 MCG TAB PO SCH (10:39)
[2022-06-11] MEDS: TOCOPHERYL, DL-ALPHA 400 UNITS 180 MG CAP PO SCH (10:39)
[2022-06-11] MEDS: hydrALAZINE TAB 50 MG TAB PO SCH ×3 (10:40→20:50)
[2022-06-11] MEDS: LIDOCAINE 5% 1 PATCH TD SCH (10:40)
[2022-06-11] MEDS: METOPROLOL SUCC 50MG EXT REL TAB PO SCH (10:41)
[2022-06-11] MEDS: lisinopril 20 MG TAB PO SCH ×2 (10:41→20:51)
[2022-06-11] MEDS: OLANZapine 10 MG TAB PO SCH ×2 (10:42→20:52)
[2022-06-11] MEDS: VENLAFAXINE HCL XR 150 MG CAPXR PO SCH (10:42)
[2022-06-11] MEDS: METHYLPHENIDATE HCL 10 MG TABLET PO SCH ×2 (12:55→13:09)
--- NOTE | 2022-06-11 20:49 | Hospitalist Progress Note ---
Date of Service June 11, 2022 Assessment & Plan (1) SAH (subarachnoid hemorrhage): Plan: Small acute subarachnoid hemorrhage within the right sylvian fissure -- - s/p mechanical fall at home. Neurologically stable entire stay. Serial CT head exams show resolving SAH. ED provider spoke with neurosurgery at [facility], who declined transfer. Given small size, they indicated surgical intervention would not presently be required and recommended keeping the patient here for observation with tight BP control. S/p ICU stay with nicardipine gtt --> now d/c. Cont to hold Plavix (last dose evening of 06/08). Neuro exam today wnl. No headache. Cognition wnl. (2) Fall: Plan: At home. With resulting SAH and Right elbow and right ear laceration repaired in ED. PT, OT evals. d/c bedrest order. (3) Essential hypertension: Plan: Complex regimen consisting of - lisinopril 20 gm BID, metoprolol 50 mg in AM, amlodipine 10 mg in AM, hydralazine 50 mg TID Needs nicardipine drip in setting of #1. Drip stopped 06/10/22. Known h/o YVONNE - see below. No changes to meds today. (4) Renal artery stenosis: Plan: - Due for CTA to assess renal arteries this Friday. - Follows w/ Dr. Rowland for vascular. Dr. Lee for CKD, HTN. CrCl is borderline - wait until later this week; would hydrate and give mucomyst in prep. (5) Carotid artery stenosis: Plan: Carotid U/S in April showed unchanged > 70% stenosis of R ICA, 50-69% stenosis of L ICA Continue statin holding Plavix given SAH. (6) Chronic kidney disease, stage 3 (moderate): Plan: daily BMP Cr near baseline CrCl is about 30 at baseline (7) Diabetes mellitus, type II: Plan: On metformin, hold while admitted. Controlled BSGs on novolog SSI (8) Anemia: Plan: H/H acceptable/stable (9) (HFpEF) heart failure with preserved ejection fraction: Plan: Compensated on exam today Continue Lasix 20 mg daily (10) Severe recurrent major depression with psychotic features: Plan: Continue olanzapine, mirtazapine, and venlafaxine. Also on Ritalin 10 mg TID but on hold Plan DVT proph - SCDs; no chemical means in setting of acute SAH. daughter updated at bedside remove arianne in am Admission and Anticipated Discharge Date Admission Date: June 09, 2022 Subjective patient sitting in chair by window no complaints of headache, neurological symptoms, double vision, etc feels good no dyspnea daughter at bedside - she mentioned that Mrs Alfaro was to have a CTA renal arteries this Friday - ordered by Dr Rowland; she inquires if it can be done while here did finally sit in chair today no dizziness eating ok Review of Systems Review of Systems: gen - feels good cv - no cp pulm - no dyspnea GI - no pain Physical Exam Physical Exam: gen - NAD, sitting in chair comfortably ears - right - laceration well approximated, sutures intact mouth - MMM neck - no JVD heart - RRR, s1 s2 lungs - minimally decreased BS bases abd - soft NT ND BS+ ext - no edema, pulses 2+ b/l neuro - PERRL; strength 5/5 x 4 exts Results & Data Results & Data ([facility]) Vital Signs (Past 12 Hours) Vital Signs Temp Pulse Pulse Pulse Resp BP Pulse Ox 06/11/22 19:59 36.3 C L 60 18 147/66 H 98 06/11/22 10:30 61 06/11/22 16:14 36.8 C 60 18 126/49 L 97 06/11/22 10:45 37.1 C 61 19 185/76 H 94 O2 Del Method 06/11/22 19:59 Room Air 06/11/22 10:30 06/11/22 16:14 Room Air 06/11/22 10:45 Room Air PG Care Time/CCT Total # of Minutes Spent Total Time Spent with Patient: Total time spent is greater than 50% in coordination of care (as documented) at patient's floor/unit and/or counseling patient: Coding Level of Care Code 95486 Subseq Hosp Care Lvl 2 Diagnoses SAH (subarachnoid hemorrhage) I60.9 Fall W19.XXXA Encounter type: initial encounter Essential hypertension I10 Renal artery stenosis I70.1 Carotid artery stenosis I65.23 Laterality: bilateral Chronic kidney disease, stage 3 (moderate) N18.30 Chronic kidney disease stage 3 subtype: unspecified whether 3a or 3b Diabetes mellitus, type II E11.9 Anemia D64.9 (HFpEF) heart failure with preserved ejection fraction I50.30 Severe recurrent major depression with psychotic features F33.3 (1) Carotid artery stenosis Laterality: bilateral Qualified Code(s): I65.23 - Occlusion and stenosis of bilateral carotid arteries (2) Chronic kidney disease, stage 3 (moderate) Chronic kidney disease stage 3 subtype: unspecified whether 3a or 3b Qualified Code(s): N18.30 - Chronic kidney disease, stage 3 unspecified (3) Fall Encounter type: initial encounter Qualified Code(s): W19.XXXA - Unspecified fall, initial encounter
[2022-06-11] MEDS: ATORVASTATIN 40 MG TAB PO SCH (20:50)
[2022-06-11] MEDS: OLANZAPINE 2.5 MG TAB PO SCH (20:52)
[2022-06-11] MEDS: MIRTAZAPINE TAB 15 MG TAB PO SCH (20:52)
[2022-06-11] MEDS: POLYETHYLENE (MIRALAX) 17 GM PACK PO PRN (20:53)
[2022-06-12] MEDS: METHYLPHENIDATE HCL 10 MG TABLET PO SCH ×4 (00:55→19:36)
[2022-06-12 08:07] LABS: BUN Creatinine Ratio 39.7 (10-20); Est GFR (African American) 41.3 ml/min; Est GFR (Non-African American) 35.6 ml/min; Potassium 4.4 mmol/L (3.5-5.1)
[2022-06-12] MEDS: lisinopril 20 MG TAB PO SCH ×2 (09:30→19:24)
[2022-06-12] MEDS: FUROSEMIDE 40 MG TAB PO SCH (09:30)
[2022-06-12] MEDS: CYANOCOBALAMIN (B-12) 2,500 MCG TABLET SL SCH (09:30)
[2022-06-12] MEDS: hydrALAZINE TAB 50 MG TAB PO SCH ×3 (09:31→19:30)
[2022-06-12] MEDS: amLODIPine BESYLATE 5 MG TAB PO SCH (09:31)
[2022-06-12] MEDS: CHOLECALCIFEROL 1,000 UNITS 25 MCG TAB PO SCH (09:31)
[2022-06-12] MEDS: METOPROLOL SUCC 50MG EXT REL TAB PO SCH (09:31)
[2022-06-12] MEDS: OLANZapine 10 MG TAB PO SCH ×3 (09:31→19:28)
[2022-06-12] MEDS: TOCOPHERYL, DL-ALPHA 400 UNITS 180 MG CAP PO SCH (09:31)
[2022-06-12] MEDS: VENLAFAXINE HCL XR 150 MG CAPXR PO SCH (09:31)
[2022-06-12] MEDS: LIDOCAINE 5% 1 PATCH TD SCH (09:32)
[2022-06-12] MEDS: INSULIN ASPART PER UNIT SC SCH ×4 (09:36→20:16)
[2022-06-12] MEDS: OLANZAPINE 2.5 MG TAB PO SCH (19:29)
[2022-06-12] MEDS: ATORVASTATIN 40 MG TAB PO SCH (19:29)
[2022-06-12] MEDS: MIRTAZAPINE TAB 15 MG TAB PO SCH (19:29)
[2022-06-12] MEDS: POLYETHYLENE (MIRALAX) 17 GM PACK PO PRN (19:36)
[2022-06-12] MEDS: POLYETHYLENE (MIRALAX) 17 GM PACK PO SCH (20:16)
[2022-06-12] MEDS: CYCLOBENZAPRINE HCL 5 MG TAB PO PRN (20:17)
[2022-06-12] MEDS ORDERED: SENNA 8.6 MG TAB PO SCH (21:00)
--- NOTE | 2022-06-12 21:18 | Hospitalist Progress Note ---
Date of Service June 12, 2022 Assessment & Plan (1) SAH (subarachnoid hemorrhage): Plan: Small acute subarachnoid hemorrhage within the right sylvian fissure -- - s/p mechanical fall at home. Serial CT head exams show resolving SAH. ED provider spoke with neurosurgery at [facility], who declined transfer. Given small size, they indicated surgical intervention would not presently be required and recommended keeping the patient here for observation with tight BP control. S/p ICU stay with nicardipine gtt --> now d/c. Cont to hold Plavix (last dose evening of 06/08). Neuro exam remains wnl. No headache. Cognition wnl. Will need to check with neurosurgery about timing of plavix resumption. (2) Fall: Plan: At home. With resulting SAH and Right elbow and right ear laceration repaired in ED. PT, OT evals pending. (3) Essential hypertension: Plan: Complex regimen consisting of - lisinopril 20 gm BID, metoprolol 50 mg in AM, amlodipine 10 mg in AM, hydralazine 50 mg TID Needs nicardipine drip in setting of #1. Drip stopped 06/10/22. Known h/o YVONNE - see below. No changes to meds today. (4) Renal artery stenosis: Plan: Due for CTA to assess renal arteries this Friday. Follows w/ Dr. Rowland for vascular. Dr. Lee for CKD, HTN. Plan to hydrate with IV fluids starting tomorrow am followed by CTA abd w/ and w/o contrast. BMP in am. (5) Carotid artery stenosis: Plan: Carotid U/S in April showed unchanged > 70% stenosis of R ICA, 50-69% stenosis of L ICA Continue statin holding Plavix given SAH. (6) Chronic kidney disease, stage 3 (moderate): Plan: daily BMP Cr near baseline CrCl is about 30 at baseline (7) Diabetes mellitus, type II: Plan: On metformin, hold while admitted. Controlled BSGs on novolog SSI (8) Anemia: Plan: H/H acceptable/stable (9) (HFpEF) heart failure with preserved ejection fraction: Plan: Compensated on exam today Continue Lasix 20 mg daily (10) Severe recurrent major depression with psychotic features: Plan: Continue olanzapine, mirtazapine, and venlafaxine. Also on Ritalin 10 mg TID Plan DVT proph - SCDs; no chemical means in setting of acute SAH. daughter updated at bedside removed arianne today hopeful for d/c home tomorrow if PT/OT evals are passed Admission and Anticipated Discharge Date Admission Date: June 09, 2022 Subjective feeling good no headache no dizziness no ataxia or unsteadiness eating well no bowel movement since admission daughter at bedside Review of Systems Review of Systems: gen - good energy cv - no cp, no orthopnea pulm - no dyspnea GI - no abd pain or nausea Physical Exam Physical Exam: gen - NAD, sitting in chair comfortably ears - right - laceration well approximated, sutures intact mouth - MMM neck - no JVD heart - RRR, s1 s2 lungs - minimally decreased BS bases o/w CTA b/l abd - soft NT ND BS+ ext - no edema, pulses 2+ b/l neuro - PERRL; strength 5/5 x 4 exts skin - right elbow laceration well-approximated with steri strips intact Results & Data Results & Data ([facility]) Vital Signs (Past 12 Hours) Vital Signs Temp Pulse Resp BP BP Pulse Ox O2 Del Method 06/12/22 19:14 36.6 C 60 18 137/58 L 100 06/12/22 15:14 36.7 C 59 L 19 127/70 99 Room Air 06/12/22 11:11 36.4 C L 64 19 149/71 H 98 Room Air Laboratory Results Laboratory Results - last 24 hr 06/12/22 06/12/22 06/12/22 07:04 07:24 11:10 Sodium 136 Potassium 4.4 Chloride 103 Carbon Dioxide 28 Anion Gap 5 BUN 54 H Creatinine 1.36 H Est Cr Clr Drug Dosing 28.0 Est GFR ( Amer) 41.3 Est GFR (Non-Af Amer) 35.6 BUN/Creatinine Ratio 39.7 H Glucose 109 H POC Glucose 130 H 175 H Calcium 9.0 06/12/22 06/12/22 16:33 20:10 Sodium Potassium Chloride Carbon Dioxide Anion Gap BUN Creatinine Est Cr Clr Drug Dosing Est GFR ( Amer) Est GFR (Non-Af Amer) BUN/Creatinine Ratio Glucose POC Glucose 129 H 94 Calcium PG Care Time/CCT Total # of Minutes Spent Total Time Spent with Patient: Total time spent is greater than 50% in coordination of care (as documented) at patient's floor/unit and/or counseling patient: Coding Level of Care Code 17250 Subseq Hosp Care Lvl 2 Diagnoses SAH (subarachnoid hemorrhage) I60.9 Fall W19.XXXA Encounter type: initial encounter Essential hypertension I10 Renal artery stenosis I70.1 Carotid artery stenosis I65.23 Laterality: bilateral Chronic kidney disease, stage 3 (moderate) N18.30 Chronic kidney disease stage 3 subtype: unspecified whether 3a or 3b Diabetes mellitus, type II E11.9 Anemia D64.9 (HFpEF) heart failure with preserved ejection fraction I50.30 Severe recurrent major depression with psychotic features F33.3 (1) Carotid artery stenosis Laterality: bilateral Qualified Code(s): I65.23 - Occlusion and stenosis of bilateral carotid arteries (2) Chronic kidney disease, stage 3 (moderate) Chronic kidney disease stage 3 subtype: unspecified whether 3a or 3b Qualified Code(s): N18.30 - Chronic kidney disease, stage 3 unspecified (3) Fall Encounter type: initial encounter Qualified Code(s): W19.XXXA - Unspecified fall, initial encounter
[2022-06-13] MEDS ORDERED: SODIUM CHLORIDE 0.9% 500 ML IV SCH (05:00)
[2022-06-13] MEDS: amLODIPine BESYLATE 5 MG TAB PO SCH (08:54)
[2022-06-13] MEDS: INSULIN ASPART PER UNIT SC SCH ×2 (08:54→12:34)
[2022-06-13] MEDS: METOPROLOL SUCC 50MG EXT REL TAB PO SCH (08:55)
[2022-06-13] MEDS: hydrALAZINE TAB 50 MG TAB PO SCH ×2 (08:55→15:05)
[2022-06-13] MEDS: CYANOCOBALAMIN (B-12) 2,500 MCG TABLET SL SCH (08:56)
[2022-06-13] MEDS: TOCOPHERYL, DL-ALPHA 400 UNITS 180 MG CAP PO SCH (08:56)
[2022-06-13] MEDS: FUROSEMIDE 40 MG TAB PO SCH (08:56)
[2022-06-13] MEDS: lisinopril 20 MG TAB PO SCH (08:58)
[2022-06-13] MEDS: CHOLECALCIFEROL 1,000 UNITS 25 MCG TAB PO SCH (08:58)
[2022-06-13] MEDS: VENLAFAXINE HCL XR 150 MG CAPXR PO SCH (08:58)
[2022-06-13] MEDS: LIDOCAINE 5% 1 PATCH TD SCH (08:59)
[2022-06-13] MEDS: POLYETHYLENE (MIRALAX) 17 GM PACK PO SCH (09:02)
[2022-06-13] MEDS: METHYLPHENIDATE HCL 10 MG TABLET PO SCH ×2 (09:02→15:05)
[2022-06-13 09:04] LABS: Calcium 9.5 mg/dl (8.5-10.1); Creatinine Clr Calc Pharmacy 32.5 ml/min; Est GFR (African American) 49.6 ml/min; Est GFR (Non-African American) 42.8 ml/min; Potassium 4.5 mmol/L (3.5-5.1)
[2022-06-13] MEDS ORDERED: OPTIRAY 300 100mL IV ONE (09:14)
--- NOTE | 2022-06-13 14:06 | CT Scan Report ---
CT angio abdomen wo/w con HISTORY: 82 years-old Female suspected renal artery stenosis hypertension in a patient with known re nal arterial stenosis COMPARISON: Duplex renal artery study 03/08/2022 TECHNIQUE: CTA of the abdomen was obtained both with and without the use of 94 mL Optiray 300. 3-D co reji and sagittal MIPS were obtained from the axial data set and were submitted for review. All wilber urements were obtained according to NASCET criteria. FINDINGS: Study is degraded by respiratory motion artifact. CTA: Moderate cardiomegaly with extensive coronary artery calcifications and partially imaged pacer leads . Trace pericardial effusion. Extensive atherosclerosis of the descending thoracic and abdominal aort a as well as the branch vessels. No thoracic aortic aneurysm or dissection. No retroperitoneal hemato ma. The arteries of the celiac trunk appear patent. There is calcified plaque at the origin of the superi or mesenteric artery and also within the mid aspect of the artery resulting in high-grade (at least 7 0%) stenosis. Multifocal high-grade stenoses of the inferior mesenteric artery. There is a least 50% stenosis at the origin of the left renal artery. Duplicated right renal arteries. High-grade stenosis (at least 70%) at the origin of the dominant more superior right renal artery. There is a greater th an 50% stenosis at the origin of the smaller inferior right renal artery. CT ABDOMEN/PELVIS: Trace pleural effusions. No pneumatosis or pneumoperitoneum. Unremarkable spleen, pancreas and adrena l glands. The gallbladder is within normal limits. Unremarkable liver. No hydronephrosis. Nonspecific distal esophageal wall thickening. Mildly distended stomach. No bowel obstruction or bowel wall thic kening. Moderate to extensive fecal retention. Unremarkable soft tissues. Degenerative changes of the spine. No acute fracture identified. IMPRESSION: 1. Study is degraded by respiratory motion artifact. 2. Cardiomegaly with extensive atherosclerotic vascular disease. 3. 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 4. Additional high-grade stenosis within the superior and inferior mesenteric arteries. ACT 112: Negative or not required by law. The above report was generated using voice recognition software. It may contain grammatical, syntax o r spelling errors. Electronically signed by: Pino Childress M.D. 06/13/2022 2:05 PM
--- NOTE | 2022-06-13 16:58 | Discharge Summary ---
Date of Service June 13, 2022 Admission HPI Per Admitting Provider Marge Alfaro is an 82-year-old female with past medical history significant for CAD, NIDA, HFpEF, HTN, DM, CKD, renal artery stenosis, TIA in 2017, and depression who presents today after falling at home this morning. She states she was getting out of bed, which is quite high off the ground and wearing a pair of socks when she got up too quickly and slipped, landing on her back and hitting the right side of her head. She does not specifically remember how she hit her head, but denies loss of consciousness. The fall is not precipitated by lightheadedness, dizziness, chest pain, palpitations, shortness of breath, or nausea/vomiting. She suffered a cut to her right elbow and right ear, therefore family called EMS to have her presented to ED for further evaluation. She is currently complaining of some right shoulder pain slight right-sided headache secondary to her fall, however without complaints, she is not having any visual disturbances, confusion, numbness, tingling, or weakness. Per EMS, she was reported to be hypertensive with a BP 240/120 in the field, upon presentation, she was hypertensive 201/59, otherwise vital signs within normal limits. Head CT shows a small acute subarachnoid hemorrhage within the right sylvian fissure. ED provider spoke with neurosurgery at [facility], who declined transfer. Given small size, indicate surgical intervention would not presently be required and recommended keeping the patient here for observation with tight BP control and repeat head CT in 24 hours or sooner if patient develops neuro deficits or becomes unstable. Patient did not take any of her morning BP meds, therefore she was given 10 mg amlodipine, 25 mg hydralazine, 40 mg lisinopril, and 50 mg metoprolol. BP rechecked, 182/50 1:30 PM. Labs otherwise significant for stable anemia with hemoglobin 10.9, POC potassium 6.5, suspect hemolyzation as it was 4.8 on presenting BMP. BUN 48, creatinine 1.25, both slightly elevated from baseline. Discharge Exam gen - NAD, sitting in chair comfortably ears - right - laceration well approximated, sutures intact mouth - MMM neck - no JVD heart - RRR, s1 s2 lungs - minimally decreased BS bases o/w CTA b/l abd - soft NT ND BS+ ext - no edema, pulses 2+ b/l neuro - PERRL; strength 5/5 x 4 exts skin - right elbow laceration well-approximated with steri strips intact Discharge Data Allergies Allergy/AdvReac Type Severity Reaction Status Date / Time bacitracin Allergy Unknown UNKNOWN Verified 06/09/22 14:39 neomycin Allergy Unknown Unknown Verified 06/09/22 14:39 [From Neosporin ([id number])] polymyxin B Allergy Unknown UNKNOWN Verified 06/09/22 14:39 adhesive AdvReac Mild RED AND Verified 06/09/22 14:39 ITCHY Bandaid Allergy Mild red and Uncoded 06/09/22 14:39 itchy Consultations 06/09/22 13:11 ED Decision to Admit Stat 06/09/22 16:48 Consult Quality Tech Routine 06/13/22 13:38 Burn CD for patient Routine Ordered Studies 06/09/22 09:14 CT head/brain wo con Stat 06/09/22 10:50 CT cervical spine wo con Stat CT chest diagnostic w con Stat 06/10/22 09:[address] [CT head/brain wo con] DAILY 06/11/22 07:20 CT head/brain wo con Routine 06/13/22 07:00 CTA abdomen wo/w con [CT angio abdomen wo/w con] Routine Hospital Course (1) SAH (subarachnoid hemorrhage): Small acute subarachnoid hemorrhage within the right sylvian fissure -- - s/p mechanical fall at home. Serial CT head exams show resolving SAH. ED provider spoke with neurosurgery at [facility], who declined transfer. Given small size, they indicated surgical intervention would not presently be required and recommended keeping the patient here for observation with tight BP control. S/p ICU stay with nicardipine gtt --> now d/c. Cont to hold Plavix (last dose evening of 06/08). Neuro exam remains wnl. No headache. Cognition wnl. Will need to check with neurosurgery about timing of plavix resumption. (2) Fall: At home. With resulting SAH and Right elbow and right ear laceration repaired in ED. PT, OT evals pending. (3) Essential hypertension: Complex regimen consisting of - lisinopril 20 gm BID, metoprolol 50 mg in AM, amlodipine 10 mg in AM, hydralazine 50 mg TID Needs nicardipine drip in setting of #1. Drip stopped 06/10/22. Known h/o YVONNE - see below. No changes to meds today. (4) Renal artery stenosis: Due for CTA to assess renal arteries this Friday. Follows w/ Dr. Rowland for vascular. Dr. Lee for CKD, HTN. Plan to hydrate with IV fluids starting tomorrow am followed by CTA abd w/ and w/o contrast. BMP in am. (5) Carotid artery stenosis: Carotid U/S in April showed unchanged > 70% stenosis of R ICA, 50-69% stenosis of L ICA Continue statin holding Plavix given SAH. (6) Chronic kidney disease, stage 3 (moderate): daily BMP Cr near baseline CrCl is about 30 at baseline (7) Diabetes mellitus, type II: On metformin, hold while admitted. Controlled BSGs on novolog SSI (8) Anemia: H/H acceptable/stable (9) (HFpEF) heart failure with preserved ejection fraction: Compensated on exam today Continue Lasix 20 mg daily (10) Severe recurrent major depression with psychotic features: Continue olanzapine, mirtazapine, and venlafaxine. Also on Ritalin 10 mg TID Plan DVT proph - SCDs; no chemical means in setting of acute SAH. daughter updated at bedside removed acuña today hopeful for d/c home tomorrow if PT/OT evals are passed Discharge Plan Discharge Items Patient Disposition: Home - Home Health Services Reason For Visit: Fall with resulting subarachnoid hemorrhage Discharge Diagnosis: 1. very small subarachnoid hemorrhage - improved/resolving 2. fall with head injury and right ear laceration - repair of laceration on 06/09/22 in the ER 3. skin tear right elbow region - repaired and steristrips in place 4. renal artery stenosis - confirmed with CTA of the abdomen - Dr Rowland aware of results Activity: As commented below Activity Comment: gradually increase your activities over the next few days Non-emergency contact: Primary Care Provider, Surgeon and Specialist Call non-emergency contact if: you have any medication questions, your wound has increased redness, your wound has increased drainage and your wound pain has increased Follow-up/Referrals: Megan Gtz PA-C [Physician Header Set Up Operator] - 06/17/22 10:00 am Maribel Myers PA-C [Physician Header Set Up Operator] - 07/05/22 9:30 am (wound care clinic to check on right elbow skin tear) Carmelo Neville MD [Outside Practitioners] - 06/27/22 8:00 am (Please arrive at 8 AM for your 8:15 AM appointment. Go in thru the [facility], take elevator D to the second floor. If you have any quetions or need to reschedule your appointment please call Neuro Surgery @ [phone]) Diet: Carb Consistent or DM2 Fluids: 1500ml (6 cups) Ambulatory Orders: Basic Metabolic Panel (Routine) Timeframe: [id number] Location: Determined by Patient Ordered By: Erik Knapp Attending Provider Instructions: Mrs Alfaro, You were hospitalized after hitting your head at home and suffering a laceration to your right ear, a large skin tear to your right arm, and a subarachnoid hemorrhage ("SAH"). The latter is when blood collects underneath the skull bone and between 2 layers of protective tissue that surround the brain. The SAH got smaller and smaller on subsequent CT scans of the head with the most recent scan showing that the SAH was nearly resolved. You should make a nice, full recovery from this. You were seen by PT/OT and cleared for home with your daughter. We spoke with neurosurgery in [place] at [facility] regarding your subarachnoid hemorrhage. They recommend the following - 1. STOP YOUR PLAVIX (clopidogrel). 2. NO ASPIRIN, MOTRIN, IBUPROFEN, ALLEVE, NAPROSYN, OR ANTI-INFLAMMATORY DRUGS. 3. Tylenol IS ok for aches/pains. 4. Follow-up with neurosurgery in [facility] - as scheduled later this month (Dr Neville). 5. Be sure to bring the CD-ROM with your CT scans to that appointment. Additional recommendations - 1. You will need the sutures removed from your right ear. These can be removed on Friday AM, 06/17/22, at your appointment with Megan Gtz. 2. You can shower at this time. Pat the right ear dry; no forceful rubbing. Pat the right elbow region dry as well; again no forceful rubbing. 3. You can continue an Optifoam dressing on the right elbow region for protection/comfort as desired. You can buy these at [employer], etc. Leave the steri-strips in place. They will naturally fall off over time. We have set up a [facility] appointment for the right elbow just in case the skin tear doesn't heal well. 4. STOP your metformin for now. 5. You will need a repeat kidney blood test before resuming your metformin. I have placed an order in the computer for you. You can have this blood draw done on 06/16/22 or 06/17/22. It may be easier to have the blood drawn Friday morning since you have an office visit at that time already. 6. Dr Rowland is aware of your CT scan results of your abdomen that was done t . This confirmed that you have bilateral renal artery stenosis, worse on the right. He can follow this issue over time. No need to keep the appointment for tomorrow's CT scan since it is already done! 7. Please increase your hydralazine dose to 50mg three times daily. New prescription sent to pharmacy for you. Return to [facility] if - * you are concerned about the appearance of the right arm skin tear or right ear laceration (increased redness, drainage, etc) * you have significant headache, change in thinking/mentation, difficulty speaking/walking, or any other unusual neurological symptoms * you are short of breath or have chest pains * any other concerns It was our pleasure to take care of you at [facility]! Pending Studies at Discharge: No Stand-Alone Forms: My [facility], Smoking Cessation Medications and DC Order Prescriptions: New hydralazine 50 mg Tablet 50 mg PO TID Qty: 90 1RF Continued mirtazapine 15 mg tablet 15 mg PO HS olanzapine [Zyprexa] 10 mg tablet 10 mg PO HS methylphenidate HCl [Ritalin] 10 mg tablet 10 mg PO TID (DME) OneTouch Ultra Test Strip See Rx Instructions .ROUTE .MEDSUPPLY Qty: 100 3RF Rx Instructions: test 1 time daily albuterol sulfate [Ventolin HFA] 90 mcg/actuation HFA aerosol inhaler 2 puff INH Q4H PRN (Reason: SOB) Qty: 8.5 11RF (DME) lancets [OneTouch Delica Lancets] 30 gauge misc See Dose Instructions .ROUTE .MEDSUPPLY Qty: 25 Rx Instructions: As directed cholecalciferol (vitamin D3) 2,000 unit tablet 2,000 units PO QAM olanzapine 2.5 mg tablet 2.5 mg PO HS furosemide 40 mg tablet See Rx Instructions .ROUTE .COMPLEX Qty: 30 11RF Rx Instructions: Take 1/2 or 1 tablet by mouth based on body weight, shortness of breath venlafaxine 150 mg capsule,extended release 24hr 300 mg PO QAM Rx Instructions: 2 tablet dose mecobalamin (vitamin B12) 5,000 mcg tablet,disintegrating 2,500 mcg PO QAM vitamin E (dl, acetate) 400 unit capsule 45 mg PO QAM olanzapine 10 mg tablet 10 mg PO DAILY Rx Instructions: give with 2.5mg metoprolol succinate 50 mg tablet extended release 24 hr 50 mg PO QAM amlodipine 10 mg tablet 10 mg PO QAM lisinopril 20 mg tablet 20 mg PO BID Qty: 60 2RF atorvastatin 40 mg tablet 40 mg PO HS hydralazine 25 mg tablet 25 mg PO TID Discontinued metformin 500 mg tablet 500 mg PO BID Qty: 180 3RF clopidogrel 75 mg tablet 75 mg PO QAM Discharge Orders: Discharge Order (Routine); Ordered 06/13/22 Ordered By: Erik Bailey Admission Data Admit Date/Time: 06/09/22 14:11 Attending Provider: Erik Bailey Admit Provider: Sincere Newman Primary Care Provider: Tab Bellamy Other Providers: Mariam Sahu ; Sincere Newman ; Eric Lozano Other Interventions: Discharge Summary Assessment (RN) Last Done: 06/13/22 15:39 Coding Diagnoses SAH (subarachnoid hemorrhage) I60.9 Fall W19.XXXA Encounter type: initial encounter Essential hypertension I10 Renal artery stenosis I70.1 Carotid artery stenosis I65.23 Laterality: bilateral Chronic kidney disease, stage 3 (moderate) N18.30 Chronic kidney disease stage 3 subtype: unspecified whether 3a or 3b Diabetes mellitus, type II E11.9 Anemia D64.9 (HFpEF) heart failure with preserved ejection fraction I50.30 Severe recurrent major depression with psychotic features F33.3
== END 2022-06-13 17:56 | disposition home or self-care (01) | DRG 86 ==
LOC: ED 07:37 → 1E 14:11 → SUATTDRO 14:11 → 1E 15:52 → 4W 06-11 10:09

== ENCOUNTER 2022-11-30 11:49 | Inpatient (IN) ==
--- NOTE | 2022-11-30 12:20 | Emergency Department Note ---
Impression & Plan Pulmonary edema, [place] (dyspnea on exertion), Hypoxia, Pleural effusion ED Provider Note NAME: SAMANTHA REDDY AGE: 82 SEX: F : 1940 ARRIVES VIA: Walk-In INFORMANT: Patient, the patient's family member ED PROVIDER(S): Adolfo Briceno DO CHIEF COMPLAINT: Difficulty breathing HPI: The patient is an 82-year-old female who does have a history of CKD as well as CHF who presented to the emergency department for an evaluation of difficulty breathing. The patient's been noticing dyspnea on exertion. The patient does not notice as much orthopnea but the patient's family member notices that she has had some fluid retention in her abdomen. There is been no chest pain reported. There is been no nausea or vomiting. The patient reports no black or bloody bowel movements. The patient does notice swelling in the legs but no worse than usual. The patient was to the workers compensation adjuster recently. At 1 point she did have her medications changed because she was found to have an elevation in her creatinine because of her medications. For this reason her lisinopril was held. This was restarted recently as well. The patient is not seen by the primary care physician today. Given the weekend they came directly to the emergency department. The patient's had no fever or hemoptysis. ROS: See above HPI for pertinent positives & negatives. A total of 10 systems reviewed and were otherwise negative. PAST MEDICAL HISTORY: See Below PAST SURGICAL HISTORY: See Below FAMILY HISTORY: See Below SOCIAL HISTORY: See Below HOME MEDICATIONS: See Below ALLERGIES: See Below VITALS: See Below PHYSICAL EXAMINATION: GENERAL: Patient is awake alert in no acute distress patient is resting comfortably and showing no signs of anxiety EYES: The conjunctivae are clear. The pupils are round and reactive. EARS, NOSE, MOUTH AND THROAT: The nose is without any evidence of any deformity. Mucous membranes are moist. Tongue is midline. NECK: The neck is nontender and supple. RESPIRATORY: Diminished breath sounds are noted at both bases with rales. There is no significant conversational dyspnea. CARDIOVASCULAR: Regular rate and rhythm noted there no murmurs rubs or gallops normal S1 normal S2. GASTROINTESTINAL: The abdomen is soft. Abdomen is nontender. MUSCULOSKELETAL/EXTREMITIES: There is no evidence of gross deformity full range of motion is noted in the hips and shoulders. SKIN: Trace pedal edema was noted bilaterally. Skin was warm and dry. Pulses are symmetric in both feet. NEUROLOGIC: Patient is awake alert and oriented x3 MEDICAL DECISION MAKING: The patient is an 82-year-old female who has a history of underlying congestive heart failure as well as preserved ejection fraction who presented to the emergency department for an evaluation of difficulty breathing. Patient's history and physical exam appear to be consistent with volume overload. She was found to have an elevation in her BNP. She also has a pleural effusion. The pleural effusion is not new. The patient was treated with IV Lasix in the emergency department. She was reevaluated multiple times. She continues to have shortness of breath with exertion. She was found to have hypoxia in the emergency department. Her troponin was mildly elevated but at this time it could be secondary to her history of CKD. She had elevation in high-sensitivity troponin in the past. The patient does have dyspnea exertion as well. It is possible this is consistent with an anginal equivalent as well. EKG shows no changes but she does have a paced rhythm. I discussed the patient's condition with the on-call [facility] hospitalist. They have agreed to evaluate the patient in the emergency department for further management and disposition. Triage Nursing notes reviewed. Prior medical records reviewed Vital Signs: reviewed and remarkable for elevation in blood pressure and hypoxia. Differential diagnosis: Reactive airway disease, pneumonia, pneumothorax, COPD, CHF, infections, cardiac ischemia, pulmonary embolism, musculoskeletal, gastrointestinal, as well as other pathologies. ER treatment provided: See below Diagnostics interpreted by me: ECG: EKG was obtained in the emergency department. My interpretation is atrial sensed ventricular paced rhythm at 70 bpm. [place] beats were noted. Left bundle branch block pattern was noted. This was compared to a tracing from June 09, 2022. No changes were noted Cardiac Monitoring: An order was placed for continuous cardiac monitoring. The monitor shows a rate of 78 bpm with paced rhythm. Laboratory studies: As stated above and show below. Imaging studies: See below. Radiographic imaging was reviewed by myself Consultation(s): I discussed this case with Heaven who is on for the [facility] Hospitalist group. 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 right ear with restricted hearing of left ear No family history of adverse response to anesthesia Obesity, morbid, BMI 40.0-49.9 Pacemaker Pleural effusion Renal artery stenosis SAH (subarachnoid hemorrhage) SAH (subarachnoid hemorrhage) 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) Skin tear of right elbow without complication Trauma of upper extremity Traumatic wound Vitamin D deficiency Surgical History History of cataract surgery History of dilatation and curettage History of ear surgery approx 1984 Hx of tonsillectomy 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 - Tapan Weinstein MD - 02/2022 Family History Family/Other Family history of coronary arteriosclerosis Depression Mother Cardiovascular disease Diabetes Other Family history of bleeding disorder No family history of adverse response to anesthesia Social History Smoking Status: Former smoker Tobacco Type: Cigarettes Age Started Using Tobacco: 15; packs per day: 1; Hx Alcohol Use: No Hx Substance Use: No Preferred Language: Libyan Communication Ability: Effective Hearing Ability: Hard of Hearing [employer] Required: No Beliefs That Will Affect Care: None marital status: / Current Living Situation: Family Current Living Situation Comment: house current occupational status: retired current occupation: worked in the [employer] How many Children do You have: 2 Feels Safe at Home: Yes Diet Comment: 1500 ml fluids per day fluid intake caffeine: Yes during the past year weight has: decreased > 10 lbs Do you think of yourself as: straight/heterosexual Gender Identity: Female Assistive Devices: None, Glasses and Hearing Aid - Bilateral Allergies Allergies Allergy/AdvReac Type Severity Reaction Status Date / Time bacitracin Allergy Unknown UNKNOWN Verified 11/28/22 15:16 neomycin Allergy Unknown Unknown Verified 11/28/22 15:16 [From Neosporin ([id number])] polymyxin B Allergy Unknown UNKNOWN Verified 11/28/22 15:16 adhesive AdvReac Mild RED AND Verified 11/28/22 15:16 ITCHY Bandaid Allergy Mild red and Uncoded 11/28/22 15:16 itchy Home Meds Home Medications Medication Instructions Recorded Confirmed lancets 30 gauge (OneTouch Delica #25 ea 05/04/19 11/28/22 Lancets) cholecalciferol (vitamin D3) 50 2,000 units PO QAM 06/21/19 11/28/22 mcg (2,000 unit) tablet mecobalamin (vitamin B12) 5,000 2,500 mcg PO QAM 03/27/21 11/28/22 mcg disintegrating tablet vitamin E (dl, acetate) 180 mg 45 mg PO QAM 03/27/21 11/28/22 (400 unit) capsule mirtazapine 15 mg tablet 15 mg PO HS 07/03/21 11/28/22 olanzapine 10 mg tablet (Zyprexa) 10 mg PO HS 07/03/21 11/28/22 venlafaxine 150 mg 300 mg PO QAM 07/03/21 11/28/22 capsule,extended release 24 hr methylphenidate HCl 10 mg tablet 10 mg PO TID 08/15/21 11/28/22 (Ritalin) olanzapine 2.5 mg tablet 2.5 mg PO HS 01/01/22 11/28/22 amlodipine 10 mg tablet 10 mg PO QAM 03/05/22 11/28/22 metoprolol succinate 50 mg 50 mg PO QAM 03/05/22 11/28/22 tablet,extended release 24 hr olanzapine 10 mg tablet 10 mg PO DAILY 04/22/22 11/28/22 insulin aspart U-100 100 unit/mL 1 sliding scale dose subcut 06/18/22 11/28/22 (3 mL) subcutaneous pen (Novolog USEASDIRECTD FlexPen U-100 Insulin aspart) furosemide 40 mg tablet 40 mg PO DAILY PRN 11/04/22 11/28/22 fluid/congestive heart/weight gain Previous Rx's Medication Instructions Recorded OneTouch Ultra Test (blood sugar #100 ea 01/03/22 diagnostic) albuterol sulfate 90 mcg/actuation 2 puff inhalation Q4H PRN SOB #8.5 03/26/22 aerosol inhaler (Ventolin HFA) grams pen needle, diabetic 32 gauge x #100 ea 06/18/22 5/16" (Comfort EZ Pen [place]) clopidogrel 75 mg tablet 75 mg PO QAM #30 tabs 07/15/22 hydralazine 50 mg tablet 50 mg PO TID #90 tabs 09/24/22 atorvastatin 40 mg tablet See Rx Instructions .Route 10/03/22 .COMPLEX #90 tabs insulin glargine 100 unit/mL (3 20 unit (0.2 mL) subcut QPM #30 mL 10/29/22 mL) subcutaneous pen metformin 500 mg tablet 500 mg PO BID #180 tabs 10/29/22 lisinopril 20 mg tablet 20 mg PO DAILY #60 tabs 11/15/22 Results & Data (ED) Vital Signs Vital Signs - 24 hr 11/30/22 11:50 11/30/22 12:20 11/30/22 12:23 Temperature 36.7 C Temperature Source Temporal Artery Scan Pulse Rate 80 73 Pulse Rate [Right Apical] 74 Pulse Rate from SpO2 Sensor Respiratory Rate 16 18 Respiratory Effort / Characteristics Non-Labored Non-Labored Spontaneous Respiratory Depth Normal Normal Respiratory Pattern Regular Blood Pressure 156/51 H Blood Pressure [Left Arm] 178/62 H Blood Pressure Mean 86 Blood Pressure Mean [Left Arm] 100 Blood Pressure Position [Left Arm] Sitting Pulse Oximetry 90 94 Oxygen Delivery Method Room Air Room Air Sepsis Recent Fever Within 48 Hours No Sepsis New/Unexplained Change in Mental Status No Sepsis Action Taken by Nursing No Action Required Oxygen Flow Rate - Titration Pulse Oximetry Post Tiitration 11/30/22 12:23 11/30/22 12:29 11/30/22 12:29 Temperature Temperature Source Pulse Rate 74 Pulse Rate [Right Apical] Pulse Rate from SpO2 Sensor Respiratory Rate 18 Respiratory Effort / Characteristics Non-Labored Spontaneous Respiratory Depth Normal Respiratory Pattern Regular Blood Pressure Blood Pressure [Left Arm] Blood Pressure Mean Blood Pressure Mean [Left Arm] Blood Pressure Position [Left Arm] Pulse Oximetry 94 93 Oxygen Delivery Method Room Air Room Air Room Air Sepsis Recent Fever Within 48 Hours Sepsis New/Unexplained Change in Mental Status Sepsis Action Taken by Nursing Oxygen Flow Rate - Titration Pulse Oximetry Post Tiitration 11/30/22 12:25 11/30/22 12:31 11/30/22 13:00 Temperature Temperature Source Pulse Rate 69 75 78 Pulse Rate [Right Apical] Pulse Rate from SpO2 Sensor 69 78 79 Respiratory Rate 19 21 22 Respiratory Effort / Characteristics Respiratory Depth Respiratory Pattern Blood Pressure 178/62 H 170/65 H 187/63 H Blood Pressure [Left Arm] Blood Pressure Mean 100 100 104 Blood Pressure Mean [Left Arm] Blood Pressure Position [Left Arm] Pulse Oximetry 95 94 92 Oxygen Delivery Method Room Air Room Air Room Air Sepsis Recent Fever Within 48 Hours Sepsis New/Unexplained Change in Mental Status Sepsis Action Taken by Nursing Oxygen Flow Rate - Titration Pulse Oximetry Post Tiitration 11/30/22 13:43 Temperature Temperature Source Pulse Rate Pulse Rate [Right Apical] Pulse Rate from SpO2 Sensor Respiratory Rate Respiratory Effort / Characteristics Respiratory Depth Respiratory Pattern Blood Pressure Blood Pressure [Left Arm] Blood Pressure Mean Blood Pressure Mean [Left Arm] Blood Pressure Position [Left Arm] Pulse Oximetry 88 L Oxygen Delivery Method Room Air Sepsis Recent Fever Within 48 Hours Sepsis New/Unexplained Change in Mental Status Sepsis Action Taken by Nursing Oxygen Flow Rate - Titration 2 Pulse Oximetry Post Tiitration 95 Home Medications Current Medication List: was personally reviewed by me Laboratory Data Attestation: I reviewed the patient's lab results. 11/30/22 12:25 11/30/22 12:25 Lab Results 11/30/22 11/30/22 11/30/22 Range/Units 10:05 12:25 12:25 WBC 5.18 (4.8-10.8) K/ul RBC 3.89 L (4.20-5.40) M/uL Hgb 10.4 L (12.0-16.0) g/dl Hct 32.3 L (37.0-47.0) % MCV 83.0 (80.0-100.0) fL MCH 26.7 (25.0-34.0) pg MCHC 32.2 (32.0-36.0) g/dL RDW Std Deviation 53.1 H (36.4-46.3) fL RDW Coeff of Juanita 17.6 H (11.5-14.5) % Plt Count 240 (130-400) K/uL MPV 11.2 (9.4-12.4) fL Immature Gran % (Auto) 0.2 % Neut % (Auto) 76.0 % Lymph % (Auto) 13.5 % Page % (Auto) 9.5 % Eos % (Auto) 0.4 % Baso % (Auto) 0.4 % Neut # (Auto) 3.94 (1.40-6.50) K/uL Lymph # (Auto) 0.70 L (1.2-3.4) K/uL Page # (Auto) 0.49 (0.11-0.59) K/uL Eos # (Auto) 0.02 (0-0.50) K/uL Baso # (Auto) 0.02 (0-0.2) K/uL Immature Gran # (Auto) 0.01 (0.01-0.20) K/uL PT 12.2 H (9.0-12.0) Seconds INR 1.2 H (0.9-1.1) APTT 29.1 (21.0-31.0) Seconds PTT Ratio 1.1 VBG pH (7.36-7.41) VBG pCO2 (38-50) mmHg VBG pO2 mmHg VBG HCO3 mmol/L VBG O2 Saturation % VBG Base Excess mEq/L Sodium (136-145) mmol/L Potassium (3.5-5.1) mmol/L Chloride (98-107) mmol/L Carbon Dioxide (21-32) mmol/L Anion Gap (3-11) BUN (6-23) mg/dl Creatinine (0.6-1.2) mg/dl Est Cr Clr Drug Dosing Est GFR ( Amer) ml/min Est GFR (Non-Af Amer) ml/min BUN/Creatinine Ratio (10-20) Glucose (70-99(Fasting)) mg/dl Calcium (8.5-10.1) mg/dl Magnesium (1.7-2.4) mg/dl Total Bilirubin (0.2-1.0) mg/dl AST (13-39) U/L ALT (7-52) U/L Alkaline Phosphatase (34-104) U/L Troponin I High Sens (0-14) pg/ml B-Natriuretic Peptide (0-100) pg/ml Total Protein (6.0-8.3) gm/dl Albumin (3.4-5.0) gm/dl Globulin (2.5-4.0) gm/dl Albumin/Globulin Ratio (0.9-2) SARS-CoV-2 (PCR) NEGATIVE (Negative) Influenza Type A (PCR) Negative (Neg) Influenza Type B (PCR) Negative (Neg) RSV (RT-PCR) Negative (Neg) 11/30/22 11/30/22 11/30/22 Range/Units 12:25 12:25 12:25 WBC (4.8-10.8) K/ul RBC (4.20-5.40) M/uL Hgb (12.0-16.0) g/dl Hct (37.0-47.0) % MCV (80.0-100.0) fL MCH (25.0-34.0) pg MCHC (32.0-36.0) g/dL RDW Std Deviation (36.4-46.3) fL RDW Coeff of Juanita (11.5-14.5) % Plt Count (130-400) K/uL MPV (9.4-12.4) fL Immature Gran % (Auto) % Neut % (Auto) % Lymph % (Auto) % Page % (Auto) % Eos % (Auto) % Baso % (Auto) % Neut # (Auto) (1.40-6.50) K/uL Lymph # (Auto) (1.2-3.4) K/uL Page # (Auto) (0.11-0.59) K/uL Eos # (Auto) (0-0.50) K/uL Baso # (Auto) (0-0.2) K/uL Immature Gran # (Auto) (0.01-0.20) K/uL PT (9.0-12.0) Seconds INR (0.9-1.1) APTT (21.0-31.0) Seconds PTT Ratio VBG pH 7.36 (7.36-7.41) VBG pCO2 57 H (38-50) mmHg VBG pO2 40 mmHg VBG HCO3 32 mmol/L VBG O2 Saturation < 60.0 % VBG Base Excess 5.5 mEq/L Sodium 136 (136-145) mmol/L Potassium 5.1 (3.5-5.1) mmol/L Chloride 101 (98-107) mmol/L Carbon Dioxide 30 (21-32) mmol/L Anion Gap 5 (3-11) BUN 29 H (6-23) mg/dl Creatinine 1.24 H (0.6-1.2) mg/dl Est Cr Clr Drug Dosing Not Reportable Est GFR ( Amer) 46.2 ml/min Est GFR (Non-Af Amer) 39.9 ml/min BUN/Creatinine Ratio 23.4 H (10-20) Glucose 98 (70-99(Fasting)) mg/dl Calcium 9.7 (8.5-10.1) mg/dl Magnesium 1.8 (1.7-2.4) mg/dl Total Bilirubin 0.5 (0.2-1.0) mg/dl AST 36 (13-39) U/L ALT 28 (7-52) U/L Alkaline Phosphatase 61 (34-104) U/L Troponin I High Sens 22.5 H (0-14) pg/ml B-Natriuretic Peptide 493 H (0-100) pg/ml Total Protein 7.0 (6.0-8.3) gm/dl Albumin 4.3 (3.4-5.0) gm/dl Globulin 2.7 (2.5-4.0) gm/dl Albumin/Globulin Ratio 1.6 (0.9-2) SARS-CoV-2 (PCR) (Negative) Influenza Type A (PCR) (Neg) Influenza Type B (PCR) (Neg) RSV (RT-PCR) (Neg) Administered Medications Discontinued Medications Furosemide (Furosemide 40 Mg/4 Ml Vial) 40 mg IV ONE ONE Stop: 11/30/22 13:19 Last Admin: 11/30/22 13:37 Dose: 40 mg Documented By: Brett Imaging Data Attestation: I personally reviewed and interpreted this imaging study as follows: My Impression: 1 view chest x-ray was obtained in the emergency department. My interpretation is left-sided pleural effusion. Right-sided pleural effusion which was very small. Pacemaker is noted. This was compared to a tracing from February 2022. Final report pending. Radiologist's Impression: Chest X-Ray 11/30/22 11:55 XR chest 1V portable CLINICAL HISTORY: Dyspnea, acute TECHNIQUE: Single frontal radiograph of the chest was obtained. Comparison: Comparison is made to chest radiograph 03/27/2022 FINDINGS: Dual lead pacemaker is seen. Cardiomegaly is noted. The aortic arch is calcified. Faint bibasilar airspace opacities are seen. Small left pleural effusion noted. Right effusion cannot be entirely excluded. IMPRESSION: 1. Left greater than right pleural effusions. 2. Cardiomegaly. 3. Faint bilateral airspace opacities may represent atelectasis, pneumonia, and/or aspiration. ACT 112: Negative or not required by law. Electronically signed by: Waylon Robert M.D. 11/30/2022 12:45 PM Discharge Plan Visit Data Chief Complaint: Shortness of Breath/Dyspnea Stated Complaint: SOB ED Provider: Adolfo Briceno Discharge Problem: Pulmonary edema, [place] (dyspnea on exertion), Hypoxia, Pleural effusion Patient Disposition: Being Evaluated by Hospitalist Forms Stand Alone Forms: My [facility] Prescriptions Prescriptions: No Action mirtazapine 15 mg tablet 15 mg PO HS olanzapine [Zyprexa] 10 mg tablet 10 mg PO HS methylphenidate HCl [Ritalin] 10 mg tablet 10 mg PO TID (DME) OneTouch Ultra Test Strip See Rx Instructions .ROUTE .MEDSUPPLY Qty: 100 3RF Rx Instructions: test 1 time daily albuterol sulfate [Ventolin HFA] 90 mcg/actuation HFA aerosol inhaler 2 puff INH Q4H PRN (Reason: SOB) Qty: 8.5 11RF clopidogrel 75 mg tablet 75 mg PO QAM Qty: 30 5RF hydralazine 50 mg tablet 50 mg PO TID Qty: 90 6RF atorvastatin 40 mg tablet See Rx Instructions .ROUTE .COMPLEX Qty: 90 3RF Dose Instruction: take 1 tablet by mouth once daily Rx Instructions: take 1 tablet by mouth once daily furosemide 40 mg tablet 40 mg PO DAILY PRN (Reason: fluid/congestive heart/weight gain) Hold Instructions: RAIN lisinopril 20 mg tablet 20 mg PO DAILY Qty: 60 2RF Hold Instructions: RAIN (DME) lancets [OneTouch Delica Lancets] 30 gauge misc See Dose Instructions .ROUTE .MEDSUPPLY Qty: 25 Rx Instructions: As directed cholecalciferol (vitamin D3) 2,000 unit tablet 2,000 units PO QAM olanzapine 2.5 mg tablet 2.5 mg PO HS insulin aspart U-100 [Novolog FlexPen U-100 Insulin] 100 unit/mL (3 mL) insulin pen 1 sliding scale dose subcut USEASDIRECTD (DME) pen needle, diabetic [Comfort EZ Pen [place]] 32 gauge x 5/16" needle See Rx Instructions .Route Qty: 100 3RF Rx Instructions: As directed venlafaxine 150 mg capsule,extended release 24hr 300 mg PO QAM Rx Instructions: 2 tablet dose mecobalamin (vitamin B12) 5,000 mcg tablet,disintegrating 2,500 mcg PO QAM vitamin E (dl, acetate) 400 unit capsule 45 mg PO QAM olanzapine 10 mg tablet 10 mg PO DAILY Rx Instructions: give with 2.5mg insulin glargine 100 unit/mL (3 mL) insulin pen 20 unit subcut QPM Qty: 30 3RF metformin 500 mg tablet 500 mg PO BID Qty: 180 3RF Hold Instructions: RAIN metoprolol succinate 50 mg tablet extended release 24 hr 50 mg PO QAM amlodipine 10 mg tablet 10 mg PO QAM Referrals Referrals: Tab Bellamy MD [Primary Care Provider] -
--- NOTE | 2022-11-30 12:48 | XRay Report ---
XR chest 1V portable CLINICAL HISTORY: Dyspnea, acute TECHNIQUE: Single frontal radiograph of the chest was obtained. Comparison: Comparison is made to chest radiograph 03/27/2022 FINDINGS: Dual lead pacemaker is seen. Cardiomegaly is noted. The aortic arch is calcified. Faint bibasilar air space opacities are seen. Small left pleural effusion noted. Right effusion cannot be entirely exclud ed. IMPRESSION: 1. Left greater than right pleural effusions. 2. Cardiomegaly. 3. Faint bilateral airspace opacities may represent atelectasis, pneumonia, and/or aspiration. ACT 112: Negative or not required by law. Electronically signed by: Waylon Robert M.D. 11/30/2022 12:45 PM
[2022-11-30 12:54] LABS: Basophils # (auto) 0.02 K/uL (0-0.2); Basophils % (auto) 0.4 %; Eosinophils # (auto) 0.02 K/uL (0-0.50); Eosinophils % (auto) 0.4 %; Hematocrit (blood only) 32.3 % (37.0-47.0); Hemoglobin 10.4 g/dl (12.0-16.0); Immature Granulocytes # (auto) 0.01 K/uL (0.01-0.20); Immature Granulocytes % (auto) 0.2 %; Lymphocytes % (auto) 13.5 %; Mean Corpuscular Hemoglobin 26.7 pg (25.0-34.0); Mean Corpuscular Hgb Conc 32.2 g/dL (32.0-36.0); Mean Platelet Volume 11.2 fL (9.4-12.4); Monocytes # (auto) 0.49 K/uL (0.11-0.59); Monocytes % (auto) 9.5 %; Neutrophils # (auto) 3.94 K/uL (1.40-6.50); Platelet Count 240 K/uL (130-400); RDW Coefficient of Variation 17.6 % (11.5-14.5); RDW Standard Deviation 53.1 fL (36.4-46.3); Red Blood Count 3.89 M/uL (4.20-5.40); White Blood Count 5.18 K/ul (4.8-10.8)
[2022-11-30 13:06] LABS: Alanine Aminotransferase 28 U/L (7-52); Albumin Globulin Ratio 1.6 (0.9-2); Albumin Level 4.3 gm/dl (3.4-5.0); Alkaline Phosphatase 61 U/L (34-104); Anion Gap 5 (3-11); Aspartate Aminotransferase 36 U/L (13-39); BUN Creatinine Ratio 23.4 (10-20); Bilirubin,Total 0.5 mg/dl (0.2-1.0); Blood Urea Nitrogen 29 mg/dl (6-23); Calcium 9.7 mg/dl (8.5-10.1); Carbon Dioxide 30 mmol/L (21-32); Chloride 101 mmol/L (98-107); Est GFR (African American) 46.2 ml/min; Est GFR (Non-African American) 39.9 ml/min; Globulin 2.7 gm/dl (2.5-4.0); Glucose 98 mg/dl (70-99(Fasting)); Magnesium 1.8 mg/dl (1.7-2.4); Potassium 5.1 mmol/L (3.5-5.1); Sodium 136 mmol/L (136-145)
[2022-11-30 13:07] LABS: Base Excess VBG 5.5 mEq/L; HCO3 VBG 32 mmol/L; Oxygen Saturation VBG < 60.0 %; PCO2 VBG 57 mmHg (38-50); PO2 VBG 40 mmHg; pH VBG 7.36 (7.36-7.41)
[2022-11-30 13:11] LABS: Troponin I High Sensitivity 22.5 pg/ml (0-14)
[2022-11-30] MEDS ORDERED: FUROSEMIDE 40 MG/4 ML VIAL IV ONE (13:18)
[2022-11-30 13:22] LABS: INR 1.2 (0.9-1.1); Partial Thromboplastin Ratio 1.1; Partial Thromboplastin Time 29.1 Seconds (21.0-31.0); Prothrombin Time 12.2 Seconds (9.0-12.0)
[2022-11-30 13:36] LABS: Influenza A virus by PCR Negative (Neg); Influenza B virus by PCR Negative (Neg); RSV by PCR Negative (Neg); SARS CoV2 RNA(COVID-19) Ceph NEGATIVE (Negative)
[2022-11-30 14:04] LABS: Appearance Urine Clear (Clear); Bilirubin Urine Negative (Negative); Blood Urine Negative (Negative); Color Urine Yellow; Glucose Urine UA Negative (Negative); Ketones Urine Negative (Negative); Leukocyte Esterase Urine Negative (Negative); Nitrite Urine Negative (Negative); Protein Urine Negative (Negative); Specific Gravity Urine 1.006 (1.000-1.030); Urobilinogen Urine Negative (Negative)
--- NOTE | 2022-11-30 14:19 | History & Physical Report ---
Date of Service November 30, 2022 Assessment & Plan (1) Acute on chronic diastolic CHF (congestive heart failure): Plan: Acute on chronic biventricular CHF with acute exacerbation - Admit to med/tele - CC/Heart healthy diet with 1800 cc fluid restriction - Initiate diuresis with IV Lasix 40 BID - Monitor I/O q shift and daily weights - Follows closely with Edwin Quintana PA-C in HF clinic, last seen 11/28, was taking Lasix 40mg daily PRN weight gain - Current weight recorded today is 169 lbs and dry weight according to Sharyn's last note is ~160 lbs - Last echo completed 01/2022, will repeat during this stay - Continue Lisinopril and Metoprolol Succinate from home as prescribed (2) Hypoxia: Plan: - Acute hypoxic respiratory failure in setting of a/c CHF exacerbation - Supplemental O2 via nasal cannula to support a pulse ox >90% - Duonebs QID PRN dyspnea/wheezing (3) Hypertension: Plan: - Accelerated BP in ER today - 187/63 (pre-diuretic administration) - Has known renal artery stenosis - Likely secondary to volume overload - Current home regimen includes Amlodipine 10mg daily, Metoprolol Succinate 50mg daily, Hydralazine 50mg TID, and Lisinopril 20mg daily - Resume home meds, can consider PRN meds if BP remains persistently above 180 systolic (4) Chronic kidney disease, stage 3 (moderate): Plan: - Reviewed CMP, she's at her baseline creatinine of 1.0-1.2 - Follows with Dr. Lee - Follow chemistries closely while diuresing (5) Type 2 diabetes mellitus: Plan: - Home medications include Metformin 500mg BID, Lantus 20u at HS, and Novolog - Last recorded ha1c 5.6% in Apr 2022 - Could consider ordering a repeat A1c if pt still here Friday as lab cannot run over the weekend - For now, split Lantus 10u BID and add analog coverage with meals, CF 40 and CR 13 - Hold Metformin - Accuchecks AC and HS (6) Depression: Plan: - Takes an odd combination of medications including Ritalin, Zyprexa, Remeron * Confirmed strengths/doses from her last psychiatry note from 08/2022 * Home medications resumed as prescribed Plan DVT ppx will be provided with Lovenox 40mg daily. PT/OT eval. Remaining plan as outlined above. High medical decision making complexity. Have discussed with Dr. Nweman who will also see and evaluate this patient. Further orders will be implemented as warranted. History of Present Illness Chief Complaint: shortness of breath Primary Care Provider: Tab Bellamy MD Marge Alfaro is a pleasant 82 yo WF who presented to the ER today c/o shortness of breath with exertion x 2 days. Patient follows closely with HF clinic and last saw Sharyn Quintana TYRELL on 11/28. She recently was experiencing a/c kidney failure and subsequently underwent medication adjustments to her Lisinopril and Lasix. She has been doing fairly well since 11/28 until the last 48 hours when family reports that she has been increasingly short of breath with exertional activities. She denies orthopnea or LE edema. She does feel that her abdomen is "swollen" more than normal. She claims that she has been checking her weight evan ly and has not had any weight gain. Her work up in the ER demonstrates bilateral R>L pleural effusion and cardiomegaly, she is hypertensive and has a pulse ox of 88% on room air. She also reports that she took all of her home medications including blood pressure pills and a dose of her Lasix 40mg. She currently denies chest pain, n/v/d, f/c, headache, or gu symptoms. She was medicated with a dose of IV Lasix 40mg x1 and referred to hospitalist service for admission. Allergies Allergy/AdvReac Type Severity Reaction Status Date / Time bacitracin Allergy Unknown UNKNOWN Verified 11/28/22 15:16 neomycin Allergy Unknown Unknown Verified 11/28/22 15:16 [From Neosporin ([id number])] polymyxin B Allergy Unknown UNKNOWN Verified 11/28/22 15:16 adhesive AdvReac Mild RED AND Verified 11/28/22 15:16 ITCHY Bandaid Allergy Mild red and Uncoded 11/28/22 15:16 itchy Home Medications Medication Instructions Recorded Confirmed Type lancets 30 gauge (CircleJhonnyuch Kenny #25 ea 05/04/19 11/28/22 History Lancets) cholecalciferol (vitamin D3) 50 2,000 units PO QAM 06/21/19 11/28/22 History mcg (2,000 unit) tablet mecobalamin (vitamin B12) 5,000 2,500 mcg PO QAM 03/27/21 11/28/22 History mcg disintegrating tablet vitamin E (dl, acetate) 180 mg 45 mg PO QAM 03/27/21 11/28/22 History (400 unit) capsule mirtazapine 15 mg tablet 15 mg PO HS 07/03/21 11/28/22 History olanzapine 10 mg tablet (Zyprexa) 10 mg PO HS 07/03/21 11/28/22 History venlafaxine 150 mg 300 mg PO QAM 07/03/21 11/28/22 History capsule,extended release 24 hr methylphenidate HCl 10 mg tablet 10 mg PO TID 08/15/21 11/28/22 History (Ritalin) olanzapine 2.5 mg tablet 2.5 mg PO HS 01/01/22 11/28/22 History OneTouch Ultra Test (blood sugar #100 ea 01/03/22 11/28/22 Rx diagnostic) amlodipine 10 mg tablet 10 mg PO QAM 03/05/22 11/28/22 History metoprolol succinate 50 mg 50 mg PO QAM 03/05/22 11/28/22 History tablet,extended release 24 hr albuterol sulfate 90 mcg/actuation 2 puff inhalation Q4H PRN SOB #8.5 03/26/22 11/28/22 Rx aerosol inhaler (Ventolin HFA) grams olanzapine 10 mg tablet 10 mg PO DAILY 04/22/22 11/28/22 History insulin aspart U-100 100 unit/mL 1 sliding scale dose subcut 06/18/22 11/28/22 History (3 mL) subcutaneous pen (Novolog USEASDIRECTD FlexPen U-100 Insulin aspart) pen needle, diabetic 32 gauge x #100 ea 06/18/22 11/28/22 Rx 5/16" (Comfort EZ Pen Cornucopia) clopidogrel 75 mg tablet 75 mg PO QAM #30 tabs 07/15/22 11/28/22 Rx hydralazine 50 mg tablet 50 mg PO TID #90 tabs 09/24/22 11/28/22 Rx atorvastatin 40 mg tablet See Rx Instructions .Route 10/03/22 11/28/22 Rx .COMPLEX #90 tabs insulin glargine 100 unit/mL (3 20 unit (0.2 mL) subcut QPM #30 mL 10/29/22 11/28/22 Rx mL) subcutaneous pen metformin 500 mg tablet 500 mg PO BID #180 tabs 10/29/22 11/28/22 Rx furosemide 40 mg tablet 40 mg PO DAILY PRN 11/04/22 11/28/22 History fluid/congestive heart/weight gain lisinopril 20 mg tablet 20 mg PO DAILY #60 tabs 11/15/22 11/28/22 Rx 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 right ear with restricted hearing of left ear No family history of adverse response to anesthesia Obesity, morbid, BMI 40.0-49.9 Pacemaker Pleural effusion Renal artery stenosis SAH (subarachnoid hemorrhage) SAH (subarachnoid hemorrhage) 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) Skin tear of right elbow without complication Trauma of upper extremity Traumatic wound Vitamin D deficiency Surgical History History of cataract surgery History of dilatation and curettage History of ear surgery approx 1984 Hx of tonsillectomy 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 - Tapan Weinstein MD - 02/2022 Family History Family/Other Family history of coronary arteriosclerosis Depression Mother Cardiovascular disease Diabetes Other Family history of bleeding disorder No family history of adverse response to anesthesia Social History Smoking Status: Former smoker Tobacco Type: Cigarettes Age Started Using Tobacco: 15; packs per day: 1; Hx Alcohol Use: No Hx Substance Use: No Preferred Language: Maori Communication Ability: Effective Hearing Ability: Hard of Hearing Brass Cutter Required: No Beliefs That Will Affect Care: None marital status: / Current Living Situation: Family Current Living Situation Comment: house current occupational status: retired current occupation: worked in the [employer] How many Children do You have: 2 Feels Safe at Home: Yes Diet Comment: 1500 ml fluids per day fluid intake caffeine: Yes during the past year weight has: decreased > 10 lbs Do you think of yourself as: straight/heterosexual Gender Identity: Female Assistive Devices: None, Glasses and Hearing Aid - Bilateral Physical Exam Physical Exam: GENERAL: 82 yo Well-developed, well-nourished elderly WF. NAD. LUNGS: Nonlabored. +JVD. Bibasilar crackles appreciated. CARDIOVASCULAR: Regular rate and rhythm. ABDOMEN: Soft, non-tender, mildly distended. No palpable masses. BS normoactive x 4 quad. EXTREMITIES: No edema. Non-tender. Peripheral pulses +2/4. Results & Data Results & Data ([facility]) Vital Signs (Past 12 Hours) Vital Signs Temp Pulse Pulse Resp BP BP Pulse Ox 11/30/22 13:43 88 L 11/30/22 13:00 78 22 187/63 H 92 11/30/22 12:31 75 21 170/65 H 94 11/30/22 12:25 69 19 178/62 H 95 11/30/22 12:29 93 11/30/22 12:29 11/30/22 12:23 74 18 94 11/30/22 12:23 74 18 178/62 H 94 11/30/22 12:20 73 11/30/22 11:50 36.7 C 80 16 156/51 H 90 O2 Del Method 11/30/22 13:43 Room Air 11/30/22 13:00 Room Air 11/30/22 12:31 Room Air 11/30/22 12:25 Room Air 11/30/22 12:29 Room Air 11/30/22 12:29 Room Air 11/30/22 12:23 Room Air 11/30/22 12:23 Room Air 11/30/22 12:20 11/30/22 11:50 Room Air Laboratory Results 11/30/22 12:25 11/30/22 12:25 Diagnostic Findings Chest X-Ray 11/30/22 11:55 XR chest 1V portable CLINICAL HISTORY: Dyspnea, acute TECHNIQUE: Single frontal radiograph of the chest was obtained. Comparison: Comparison is made to chest radiograph 03/27/2022 FINDINGS: Dual lead pacemaker is seen. Cardiomegaly is noted. The aortic arch is calcified. Faint bibasilar airspace opacities are seen. Small left pleural effusion noted. Right effusion cannot be entirely excluded. IMPRESSION: 1. Left greater than right pleural effusions. 2. Cardiomegaly. 3. Faint bilateral airspace opacities may represent atelectasis, pneumonia, and/or aspiration. ACT 112: Negative or not required by law. Electronically signed by: Waylon Robert M.D. 11/30/2022 12:45 PM ECG Additional Comments: paced rhythm Supervising Physician Co-Signing Physician Notes Patient seen and examined, chart reviewed, case discussed with Mony Coe PA-C and I agree with the assessment and plan as above except as otherwise noted Labs and images reviewed Marge is an 82-year-old female with a past medical history of heart failure with preserved ejection fraction followed by CHF clinic, CKD 3, type II DM, pleural effusion, venous insufficiency, diabetic retinopathy who presents with exertional dyspnea and evidence of volume overload. Has recently had her lisinopril held 11/28 due to mild elevated creatinine. Dry weight reported 175, suspected on last cardiology visit that may be 10 pounds lower than this in actuality. Last echo EF was preserved at 60-65%. Does have a history of secondary heart block with pacemaker placement. Admitting weight 169.1 pounds. Does not have leukocytosis. Has a mild compensated acidosis. Creatinine baseline appears 1.451.62. Admitting creatinine 1.24. BNP is elevated at 493, troponin is mildly elevated at 22.5 suspicious for demand. CXR shows left greater than right pleural effusions, and for airspace opacity suspicious for atelectasis versus pneumonia versus aspiration. Procalcitonin is pending, patient is afebrile. Patient seen at bedside, reports that she feels "okay ". Thinks her legs are near where they have been in the last week, maybe a little bit more swollen than normal. She is laying flat without shortness of breath. Lungs are diminished on auscultation, heart rate is regular. Legs have mild pitting edema. Patient's family is at bedside, are very concerned that she receive methylphenidate for depression. Patient's blood pressure is high, is pending antihypertensives. Discussed that this is not a essential medication, and in context of getting better control over her blood pressure will temporarily defer this but will resume if otherwise doing well. Agree with management as noted above PG Care Time/CCT Total # of Minutes Spent Total Time Spent with Patient: Total time spent is greater than 50% in coordination of care (as documented) at patient's floor/unit and/or counseling patient: Coding Level of Care Code 35336 INT INP/OBS CARE 3/75MIN Diagnoses Acute on chronic diastolic CHF (congestive heart failure) I50.33 Hypoxia R09.02 Hypertension I10 Chronic kidney disease, stage 3 (moderate) N18.30 Chronic kidney disease stage 3 subtype: unspecified whether 3a or 3b Type 2 diabetes mellitus E11.9 Depression F32.9 Active/Remission status: remission status unspecified Depression Type: major depressive disorder Major depression recurrence: unspecified whether recurrent (4) Chronic kidney disease, stage 3 (moderate) Chronic kidney disease stage 3 subtype: unspecified whether 3a or 3b Qualified Code(s): N18.30 - Chronic kidney disease, stage 3 unspecified (6) Depression Active/Remission status: remission status unspecified Depression Type: major depressive disorder Major depression recurrence: unspecified whether recurrent Qualified Code(s): F32.9 - Major depressive disorder, single episode, unspecified
[2022-11-30] MEDS ORDERED: ALUMINUM/MAGNESIUM SUSP 30 ML UDC PO PRN (15:47)
[2022-11-30] MEDS ORDERED: GLUCOSE 40% GEL 15 GM TUBE PO PRN (15:47)
[2022-11-30] MEDS ORDERED: GLUCAGON FOR INJ 1 MG VIAL SQ PRN (15:47)
[2022-11-30] MEDS ORDERED: ACETAMINOPHEN 325 MG TAB PO PRN (15:47)
[2022-11-30] MEDS ORDERED: DEXTROSE 50% 50 ML SYRINGE IV PRN (15:47)
[2022-11-30] MEDS ORDERED: ONDANSETRON INJ 2 MG/ML 2 ML VIAL IV PRN (15:47)
[2022-11-30] MEDS ORDERED: GLUCOSE 10 TAB/TUBE PO PRN (15:47)
[2022-11-30] MEDS ORDERED: ALBUT/IPRATROP 3MG/0.5MG NEB 3 ML VIAL NEB PRN (15:47)
[2022-11-30] MEDS ORDERED: MAGNESIUM HYDROXIDE SUSP 30 ML UDC PO PRN (15:47)
[2022-11-30] MEDS ORDERED: POLYETHYLENE (MIRALAX) 17 GM PACK PO PRN (15:47)
[2022-11-30] MEDS ORDERED: Patient's HEIGHT &/or WEIGHT Needed SCH (16:00)
[2022-11-30] MEDS: hydrALAZINE TAB 50 MG TAB PO SCH (18:16)
[2022-11-30] MEDS: INSULIN ASPART PER UNIT SC SCH ×2 (18:18→21:00)
[2022-11-30] MEDS: LANTUS PER UNIT CHARGE SQ SCH (21:01)
[2022-11-30] MEDS: MIRTAZAPINE TAB 15 MG TAB PO SCH (21:09)
[2022-11-30] MEDS: OLANZAPINE 2.5 MG TAB PO SCH (21:09)
[2022-11-30] MEDS: OLANZapine 10 MG TAB PO SCH (21:09)
[2022-12-01] MEDS: hydrALAZINE TAB 50 MG TAB PO SCH ×4 (00:19→20:12)
[2022-12-01 06:13] LABS: Basophils # (auto) 0.02 K/uL (0-0.2); Basophils % (auto) 0.5 %; Eosinophils # (auto) 0.09 K/uL (0-0.50); Eosinophils % (auto) 2.1 %; Hematocrit (blood only) 31.6 % (37.0-47.0); Hemoglobin 10.2 g/dl (12.0-16.0); Immature Granulocytes # (auto) 0.01 K/uL (0.01-0.20); Immature Granulocytes % (auto) 0.2 %; Lymphocytes # (auto) 0.73 K/uL (1.2-3.4); Lymphocytes % (auto) 16.9 %; Mean Corpuscular Hemoglobin 26.5 pg (25.0-34.0); Mean Corpuscular Hgb Conc 32.3 g/dL (32.0-36.0); Mean Corpuscular Volume 82.1 fL (80.0-100.0); Mean Platelet Volume 11.3 fL (9.4-12.4); Monocytes # (auto) 0.46 K/uL (0.11-0.59); Monocytes % (auto) 10.6 %; Neutrophils # (auto) 3.01 K/uL (1.40-6.50); Neutrophils % (auto) 69.7 %; Platelet Count 238 K/uL (130-400); RDW Coefficient of Variation 17.3 % (11.5-14.5); RDW Standard Deviation 50.9 fL (36.4-46.3); Red Blood Count 3.85 M/uL (4.20-5.40); White Blood Count 4.32 K/ul (4.8-10.8)
[2022-12-01 06:36] LABS: BUN Creatinine Ratio 23.2 (10-20); Calcium 9.4 mg/dl (8.5-10.1); Creatinine Clr Calc Pharmacy 34.7 ml/min; Est GFR (African American) 45.7 ml/min; Est GFR (Non-African American) 39.5 ml/min; Magnesium 1.8 mg/dl (1.7-2.4); Potassium 3.8 mmol/L (3.5-5.1)
[2022-12-01] MEDS: METOPROLOL SUCC 50MG EXT REL TAB PO SCH (07:31)
[2022-12-01] MEDS: CLOPIDOGREL BISULFATE 75 MG TAB PO SCH (07:31)
[2022-12-01] MEDS: ATORVASTATIN 40 MG TAB PO SCH (07:31)
[2022-12-01] MEDS: amLODIPine BESYLATE 5 MG TAB PO SCH (07:31)
[2022-12-01] MEDS: VENLAFAXINE HCL XR 150 MG CAPXR PO SCH (07:31)
[2022-12-01] MEDS: lisinopril 20 MG TAB PO SCH (07:32)
[2022-12-01] MEDS: ENOXAPARIN INJ 40 MG/0.4 ML SYR SQ SCH (07:32)
--- NOTE | 2022-12-01 07:48 | Hospitalist Progress Note ---
Date of Service December 01, 2022 Assessment & Plan (1) Acute on chronic diastolic CHF (congestive heart failure): Plan: Acute on chronic biventricular CHF with acute exacerbation, HFpEF, serious risk - 1800 cc fluid restriction - active diuresis with IV Lasix 40 BID - Monitor I/O q shift and daily weights - Follows closely with Edwin Quintana PA-C in HF clinic, last seen 11/28, was taking Lasix 40mg daily PRN weight gain - Current weight recorded today is 169 lbs and dry weight according to HF clinic last note is ~160 lbs - Last echo completed 01/2022,repeat echo without significant changes except for trace pericardial effusion and mild pulmonary htn trace pericardial effusion not hemodynamically significant and pulm htn will be addressed with diuresis and follow up with her pcp who is a sharepoint solutions architect - Continue Lisinopril and Metoprolol Succinate (2) Hypoxia: Plan: - Acute hypoxic respiratory failure in setting of a/c CHF exacerbation - Supplemental O2 via nasal cannula to support a pulse ox >90% - Duonebs QID PRN dyspnea/wheezing (3) Hypertension: Plan: - Accelerated hyperetnsion in ER on presnetioant acute on chronic issue, uncontrolled, severe risk with previous SDH - Has known renal artery stenosis - - Current home regimen includes Amlodipine 10mg daily, Metoprolol Succinate 50mg daily, Hydralazine 50mg TID, and Lisinopril 20mg daily - (4) Chronic kidney disease, stage 3 (moderate): Plan: - Reviewed CMP, baseline creatinine of 1.0-1.2 - Follows with Dr. Lee - Follow chemistries closely while diuresing (5) Type 2 diabetes mellitus: Plan: - Home medications include Metformin 500mg BID, Lantus 20u at HS, and Novolog - Last recorded ha1c 5.6% in Apr 2022 - Could consider ordering a repeat A1c if pt still here Friday as lab cannot run over the weekend - For now, split Lantus 10u BID and add log coverage with meals, did have some hypoglycemia and adjusted scale to be more loosened - Hold Metformin - (6) Depression: Plan: - Takes an combination of medications including Ritalin, Zyprexa, Remeron * Confirmed strengths/doses from her last psychiatry note from 08/2022 * did have some psychotic features in the past Plan DVT ppx will be provided with Lovenox 40mg daily. PT/OT tay. Admission and Anticipated Discharge Date Admission Date: November 30, 2022 Subjective Patient awake alert appropriate. She denies medical indiscretion. She denies dietary indiscretion. She says she feels much better when she presented. Physical Exam Physical Exam: Patient awake alert appropriate. She is in no respiratory distress. Improved oxygenation JVD is 2 cm cardiac exam is regular distant without murmurs lungs are rales at the base which clear with inspiration, good air movement Extremities are without edema Results & Data Results & Data ([facility]) Vital Signs (Past 12 Hours) Vital Signs Temp Pulse Pulse Resp BP BP Pulse Ox 12/01/22 07:26 97.7 F 81 18 162/70 H 95 12/01/22 03:25 98.1 F 67 20 137/77 97 11/30/22 23:15 97.7 F 67 20 150/71 H 95 11/30/22 23:28 71 11/30/22 23:00 11/30/22 20:08 97.9 F 74 20 185/74 H 96 O2 Del Method O2 Flow Rate 12/01/22 07:26 Nasal Cannula 2 12/01/22 03:25 Nasal Cannula 2 11/30/22 23:15 Nasal Cannula 2 11/30/22 23:28 11/30/22 23:00 Nasal Cannula 2 11/30/22 20:08 Nasal Cannula 2 Laboratory Results REviewed CBC reviewed prp reviewed poc glucose checks PG Care Time/CCT Total # of Minutes Spent Total Time Spent with Patient: Total time spent is greater than 50% in coordination of care (as documented) at patient's floor/unit and/or counseling patient: Coding Level of Care Code 92351 SUB INP/OBS CARE 2/35MIN Diagnoses Acute on chronic diastolic CHF (congestive heart failure) I50.33 Hypoxia R09.02 Hypertension I10 Chronic kidney disease, stage 3 (moderate) N18.30 Chronic kidney disease stage 3 subtype: unspecified whether 3a or 3b Type 2 diabetes mellitus E11.9 Depression F32.9 Active/Remission status: remission status unspecified Depression Type: major depressive disorder Major depression recurrence: unspecified whether recurrent (4) Chronic kidney disease, stage 3 (moderate) Chronic kidney disease stage 3 subtype: unspecified whether 3a or 3b Qualified Code(s): N18.30 - Chronic kidney disease, stage 3 unspecified (6) Depression Active/Remission status: remission status unspecified Depression Type: major depressive disorder Major depression recurrence: unspecified whether recurrent Qualified Code(s): F32.9 - Major depressive disorder, single episode, unspecified
[2022-12-01] MEDS: INSULIN ASPART PER UNIT SC SCH ×4 (08:45→22:39)
[2022-12-01] MEDS: LANTUS PER UNIT CHARGE SQ SCH (08:46)
[2022-12-01] MEDS ORDERED: FUROSEMIDE 40 MG/4 ML VIAL IV ONE (09:00)
--- NOTE | 2022-12-01 10:15 | XCELERA ---
[id number]
[2022-12-01] MEDS: CARBOHYDRATES FOR HYPOGLYCEMIA PO PRN ×2 (11:42→16:47)
[2022-12-01] MEDS: METHYLPHENIDATE HCL 10 MG TABLET PO SCH ×2 (12:52→16:33)
--- NOTE | 2022-12-01 14:25 | Electrocardiogram Report ---
Test Reason : Blood Pressure : / mmHG Vent. Rate : 070 BPM Atrial Rate : 070 BPM P-R Int : 208 ms QRS Dur : 160 ms QT Int : 442 ms P-R-T Axes : 044 113 -44 degrees QTc Int : 477 ms Atrial-sensed ventricular-paced rhythm Abnormal ECG When compared with ECG of 09-JUN-2022 07:53, No significant change was found Confirmed by Chris Lopez ([id number]) on 12/01/2022 2:25:13 PM Referred By: REFERRED SELF Confirmed By:Chris Lopez
[2022-12-01] MEDS: MIRTAZAPINE TAB 15 MG TAB PO SCH (20:12)
[2022-12-01] MEDS: OLANZapine 10 MG TAB PO SCH (20:12)
[2022-12-01] MEDS: OLANZAPINE 2.5 MG TAB PO SCH (20:12)
[2022-12-02] MEDS: METHYLPHENIDATE HCL 10 MG TABLET PO SCH ×2 (05:46→12:30)
[2022-12-02] MEDS: hydrALAZINE TAB 50 MG TAB PO SCH (08:15)
[2022-12-02] MEDS: ATORVASTATIN 40 MG TAB PO SCH (08:16)
[2022-12-02] MEDS: METOPROLOL SUCC 50MG EXT REL TAB PO SCH (08:16)
[2022-12-02] MEDS: VENLAFAXINE HCL XR 150 MG CAPXR PO SCH (08:16)
[2022-12-02] MEDS: CLOPIDOGREL BISULFATE 75 MG TAB PO SCH (08:16)
[2022-12-02] MEDS: ENOXAPARIN INJ 40 MG/0.4 ML SYR SQ SCH (08:16)
[2022-12-02] MEDS: amLODIPine BESYLATE 5 MG TAB PO SCH (08:16)
[2022-12-02] MEDS: lisinopril 20 MG TAB PO SCH (08:16)
[2022-12-02] MEDS: INSULIN ASPART PER UNIT SC SCH ×2 (08:54→12:31)
--- NOTE | 2022-12-02 16:26 | Discharge Summary ---
Date of Service December 02, 2022 Admission HPI Per Admitting Provider Marge Alfaro is a pleasant 82 yo WF who presented to the ER today c/o shortness of breath with exertion x 2 days. Patient follows closely with HF clinic and last saw Sharyn Quintana PA-C on 11/28. She recently was experiencing a/c kidney failure and subsequently underwent medication adjustments to her Lisinopril and Lasix. She has been doing fairly well since 11/28 until the last 48 hours when family reports that she has been increasingly short of breath with exertional activities. She denies orthopnea or LE edema. She does feel that her abdomen is "swollen" more than normal. She claims that she has been checking her weight daily and has not had any weight gain. Her work up in the ER demonstrates bilateral R>L pleural effusion and cardiomegaly, she is hypertensive and has a pulse ox of 88% on room air. She also reports that she took all of her home medications including blood pressure pills and a dose of her Lasix 40mg. She currently denies chest pain, n/v/d, f/c, headache, or gu symptoms. She was medicated with a dose of IV Lasix 40mg x1 and referred to hospitalist service for admission. Principal Diagnosis ACUTE DIASTOLIC HEART FAILURE ACUTE ON CHRONIC RESPIRATORY FAILURE WITH HYPOXIA Discharge Exam Patient is awake and alert I personally tested on room air hypoxia was not present but with ambulation did she did require 1 L subsequently she was discharged on ambulatory oxygen Her daughter was well versed in heart failure education and patient will follow- up with her outpatient provider and the heart failure clinic Discharge Data Allergies Allergy/AdvReac Type Severity Reaction Status Date / Time bacitracin Allergy Unknown UNKNOWN Verified 11/28/22 15:16 neomycin Allergy Unknown Unknown Verified 11/28/22 15:16 [From Neosporin ([id number])] polymyxin B Allergy Unknown UNKNOWN Verified 11/28/22 15:16 adhesive AdvReac Mild RED AND Verified 11/28/22 15:16 ITCHY Bandaid Allergy Mild red and Uncoded 11/28/22 15:16 itchy Consultations 11/30/22 13:52 ED Decision to Admit Stat Hospital Course (1) Acute on chronic diastolic CHF (congestive heart failure): Acute on chronic biventricular CHF with acute exacerbation, HFpEF, serious risk -Patient be discharged on Lasix 40 daily - - Follows closely with Edwin Quintana PA-C in HF clinic, will have outpatient labs in 2 days on current daily diuretic therapy - Current weight recorded today is 165 lbs and dry weight according to HF clinic last note is ~160 lbs although these are different scales - echo completed 12/01/2022,repeat echo without significant changes except for trace pericardial effusion and mild pulmonary htn trace pericardial effusion not hemodynamically significant and pulm htn will be addressed with diuresis and follow up with her pcp who is a private equity associate - Continue Lisinopril and Metoprolol Succinate (2) Hypoxia: - Acute hypoxic respiratory failure in setting of a/c CHF exacerbation - Supplemental O2 via nasal cannula to support a pulse ox >90% when ambulating requiring 1 L - (3) Hypertension: - Accelerated hyperetnsion in ER on presnetioant acute on chronic issue, uncontrolled, severe risk with previous SDH - Has known renal artery stenosis - - Current home regimen includes Amlodipine 10mg daily, Metoprolol Succinate 50mg daily, Hydralazine 50mg TID, and Lisinopril 20mg daily - (4) Chronic kidney disease, stage 3 (moderate): - Reviewed CMP, baseline creatinine of 1.0-1.2 - Follows with Dr. Lee -Repeat outpatient PRP on 12/04/2022 (5) Type 2 diabetes mellitus: - Home medications include Metformin 500mg BID, Lantus 20u at HS, and Novolog - Last recorded ha1c 5.6% in Apr 2022 - - (6) Depression: - Takes an combination of medications including Ritalin, Zyprexa, Remeron * Confirmed strengths/doses from her last psychiatry note from 08/2022 * did have some psychotic features in the past Total Time Total Time Spent Total Time Spent (In Minutes): It required greater than 30 minutes to prepare this patient for discharge Discharge Plan Discharge Items Patient Disposition: Home - Self-Care Reason For Visit: CHF Discharge Diagnosis: acute diastolic heart failure Activity: Resume your previous activity Non-emergency contact: Primary Care Provider Call non-emergency contact if: your symptoms worsen Follow-up/Referrals: Tab Bellamy MD [Primary Care Provider] - (PLEASE CALL YOUR PRIMARY CARE PROVIDER TO SCHEDULE A DISCHARGE FOLLOW-UP APPOINTMENT WITHIN 7-10 DAYS.) Diet: Low Sodium (2gm) Ambulatory Orders: Basic Metabolic Panel (Routine) Timeframe: 2 Days Location: Determined by Patient Ordered By: Scot Knapp Attending Provider Instructions: Call 911 and go to the Emergency Room if: * You have tightness or pain in your chest that does not go away with rest or Nitroglycerin * You are very short of breath even with rest Call your doctor if any of the following symptoms or problems start or get worse: * Shortness of breath or difficulty breathing * Wake up at night short of breath * Chest pain * Cough * Swelling of your hands, fee, or legs * More fatigued or tired with your normal activity * Palpitations - sudden fast heart beats WEIGHT * Weigh yourself every morning after using the bathroom. * Use the same scale. * Wear the same amount of clothing. * Write your weight down on your chart. * Call your doctor if you gain more than 2-3 pounds in 1-2 days. MEDICATIONS * Use this discharge instruction sheet for instructions. * Take your medications at the time your doctor ordered. * Do not skip a dose of your medicines. * If you miss a dose of medicine, take as soon as possible, but DO NOT DOUBLE A DOSE. * Read your medicine information when you get home. * Know all of the side effects of your medicine. * Call your doctor's office if you have any side effects. * Be sure all of your doctors know what medicine and herbs you take (including cold, flu, and herbal medicine). * Pain Medicine: If you do not get relief from your pain, please call your doctor for help. Take the following with you to your follow-up doctor appointments: * Weight Chart * Medication List * List of questions Do not drink excessive alcohol, beer or wine. Pending Studies at Discharge: No Stand-Alone Forms: [employer], Smoking Cessation Medications and DC Order Prescriptions: Continued mirtazapine 15 mg tablet 15 mg PO HS olanzapine [Zyprexa] 10 mg tablet 10 mg PO HS methylphenidate HCl [Ritalin] 10 mg tablet 10 mg PO TID (DME) OneTouch Ultra Test Strip See Rx Instructions .ROUTE .MEDSUPPLY Qty: 100 3RF Rx Instructions: test 1 time daily albuterol sulfate [Ventolin HFA] 90 mcg/actuation HFA aerosol inhaler 2 puff INH Q4H PRN (Reason: SOB) Qty: 8.5 11RF clopidogrel 75 mg tablet 75 mg PO QAM Qty: 30 5RF hydralazine 50 mg tablet 50 mg PO TID Qty: 90 6RF atorvastatin 40 mg tablet See Rx Instructions .ROUTE .COMPLEX Qty: 90 3RF Dose Instruction: take 1 tablet by mouth once daily Rx Instructions: take 1 tablet by mouth once daily lisinopril 20 mg tablet 20 mg PO DAILY Qty: 60 2RF Hold Instructions: RAIN (DME) lancets [OneTouch Delica Lancets] 30 gauge misc See Dose Instructions .ROUTE .MEDSUPPLY Qty: 25 Rx Instructions: As directed cholecalciferol (vitamin D3) 2,000 unit tablet 2,000 units PO QAM olanzapine 2.5 mg tablet 2.5 mg PO HS insulin aspart U-100 [Novolog FlexPen U-100 Insulin] 100 unit/mL (3 mL) insulin pen 1 sliding scale dose subcut USEASDIRECTD (DME) pen needle, diabetic [Comfort EZ Pen [place]] 32 gauge x 5/16" needle See Rx Instructions .Route Qty: 100 3RF Rx Instructions: As directed venlafaxine 150 mg capsule,extended release 24hr 300 mg PO QAM Rx Instructions: 2 tablet dose mecobalamin (vitamin B12) 5,000 mcg tablet,disintegrating 2,500 mcg PO QAM vitamin E (dl, acetate) 400 unit capsule 45 mg PO QAM olanzapine 10 mg tablet 10 mg PO DAILY Rx Instructions: give with 2.5mg insulin glargine 100 unit/mL (3 mL) insulin pen 20 unit subcut QPM Qty: 30 3RF metformin 500 mg tablet 500 mg PO BID Qty: 180 3RF Hold Instructions: RAIN metoprolol succinate 50 mg tablet extended release 24 hr 50 mg PO QAM amlodipine 10 mg tablet 10 mg PO QAM Changed furosemide 40 mg tablet 40 mg PO DAILY Qty: 30 4RF Discharge Orders: Discharge Order- CHF (Routine); Ordered 12/02/22 Ordered By: Scot Castillo/Other Patient Handouts: What Is Heart Failure, Low-Salt Choices, Eating Heart-Healthy Foods, Heart Failure: Breathe More Easily Admission Data Admit Date/Time: 11/30/22 13:56 Attending Provider: Scot Lindo Admit Provider: Sincere Newman Primary Care Provider: Solic,René. Other Providers: Sincere Newman Other Interventions: Discharge Summary Assessment (RN) Last Done: 12/02/22 12:41 Coding Level of Care Code 22483 INP/OBS DISCH >30 MIN Diagnoses Acute on chronic diastolic CHF (congestive heart failure) I50.33 Hypoxia R09.02 Hypertension I10 Chronic kidney disease, stage 3 (moderate) N18.30 Chronic kidney disease stage 3 subtype: unspecified whether 3a or 3b Type 2 diabetes mellitus E11.9 Depression F32.9 Depression Type: major depressive disorder Major depression recurrence: unspecified whether recurrent Active/Remission status: remission status unspecified
== END 2022-12-02 14:10 | disposition home or self-care (01) | DRG 291 ==
LOC: ED 11:49 → 2N 13:56 → SUATTDRO 13:56 → 2N 15:09

== ENCOUNTER 2024-05-21 14:51 | Inpatient (IN) ==
--- NOTE | 2024-05-21 16:49 | Emergency Department Note ---
Impression & Plan Dizziness, Multiple falls, Closed head injury, Rib pain on right side, Right lateral abdominal pain, Laceration of left hand ED Provider Note CHIEF COMPLAINT: Fall, dizziness, left hand laceration HISTORY OF PRESENT ILLNESS: This 84-year-old female patient presents to the emergency department via private vehicle for evaluation of injuries after multiple falls. The patient states that she recently had her mirtazapine dose tripled about 2 days ago. She was feeling dizzy and lightheaded earlier in the day and fell. Her initial fall was at approximately 9 this morning when she hit the right side of her ribs and her head. She was able to lower herself to the ground. The patient then laid down for a nap and when she got back up, developed dizziness and lightheadedness again. Patient states that this time, she caught her left hand on a metal pole for the drawer on her dresser and caused a laceration on the medial aspect of the palm. The patient states that she did not lose consciousness earlier this morning when she struck her head. After the hand laceration, her family member bandaged the wound and brought her to the emergency department for evaluation. Tetanus vaccination is up-to-date. Patient does take Plavix. REVIEW OF SYSTEMS: A 10 system review of systems was performed with positives and pertinent negatives listed in the history of present illness. All other systems were reviewed and are negative. ALLERGIES: Bacitracin, neomycin, adhesive PHYSICAL EXAM: VITALS: Vitals are noted on the nurse's note and reviewed by myself. Vital signs stable. GENERAL: This is an 84-year-old female, in no acute distress, nondiaphoretic, well-developed well-nourished. SKIN: 3 cm laceration on the medial aspect of the palm of the left hand. There is active bleeding at this time. The wound edges do gape apart with traction. There are no obvious deep structures such as bone, significant blood vessels, or nerves noted at the base of the wound. The skin was without rashes, erythema, edema, or bruising. There is no tenting of the skin. Capillary refill less than 2 seconds. HEAD: Normocephalic atraumatic. EARS: External auditory canals clear, tympanic membranes pearly fagan without erythema or effusion bilaterally. No hemotympanum. Negative moe sign EYES: Pupils equal round and reactive to light and accommodation. Conjunctivae without injection, sclerae without icterus. Extraocular movements intact. NOSE: Patent, turbinates without inflammation or discharge. No sinus tenderness. MOUTH: Mucous membranes moist. Tonsils are not enlarged. Pharynx without erythema or exudate. Uvula midline. Airway patent. Tongue does not deviate. NECK: Supple without nuchal rigidity. No lymphadenopathy. Cervical spine is nontender. No JVD. HEART: Regular rate and rhythm without murmurs gallops or rubs. LUNGS: Clear to auscultation bilaterally without wheezes, rales or rhonchi. No retractions or accessory muscle use. ABDOMEN: Positive bowel sounds x 4. Soft, nontender, without masses or organomegaly. Marin sign negative. No guarding or rebound tenderness. MUSCULOSKELETAL: No muscle atrophy, erythema, or edema noted. Full range of motion without joint tenderness in all extremities. No tenderness to palpation. Normal gait. Strength 5/5 throughout. NEURO: Patient was alert and oriented to person place and time. Normal sensation to light and sharp touch. Deep tendon reflexes 2+ throughout. No focal neurological deficits. An order was placed for continuous cardiac cath lab radiology technologist. The monitor showed a normal sinus rhythm at a ventricular rate of 74 bpm, per my interpretation. EKG was reviewed by myself and found to be atrial sensed ventricular paced rhythm with prolonged AV conduction at a rate of 76 beats per minute and per my interpretation reveals no ST elevation or depression. No T wave inversion. When compared to EKG completed on 01/10/2023, no significant change was noted. CT and x-ray imaging as interpreted by myself and the radiologist revealed no acute traumatic findings, with radiologist interpretation as above. I agree with the radiologist's findings as based upon my independent interpretation. EMERGENCY DEPARTMENT COURSE: The patient was seen and evaluated as above. The patient presented for dizziness and subsequent multiple falls throughout the day today. She does also have a left hand laceration. The patient did strike her head. There is uncertain whether or not there was loss of consciousness. She is complaining of a generalized head pain, right rib and side pain. She has had persistent dizziness and lightheadedness since the falls. Of note, the patient did recently have a dose adjustment to her mirtazapine from 15 mg to 45 mg 2 days ago. This is suspected to be the underlying etiology of her dizziness. IV access was obtained, labs were drawn. EKG was completed as above. Labs reviewed. Per my interpretation, there no concerning leukocytosis. There is a mild anemia with hemoglobin 11.3. No thrombocytopenia. Creatinine elevated at 1.81. This is slightly higher than the patient's baseline. Hepatic function and electrolytes without acute abnormality. Troponin is mildly elevated at 23. Repeat troponin testing was elevated at 24. Urinalysis was negative for blood or evidence of infection. Laceration of the left hand was repaired by Dr. Layne. Please see his dictation regarding this procedure. Given the elevated troponin patient's persistent dizziness as well as her elevated blood pressure noted here in the emergency department, I did recommend inpatient care. The patient was agreeable. She will be admitted [facility] the [facility]. I did discuss the case with Dr. Squires. Please see his dictation regarding ongoing management and care of this patient. Case was discussed with the attending physician. This visit is during a period of high volume and high acuity in the emergency department. I attest that I have personally reviewed the patient medication list. I attest that I have reviewed the patient's blood pressure and it was found to be elevated. Further management by hospitalist. GCS: 15 In the evaluation and treatment of this patient the following differential diagnoses were entertained: Fracture, dislocation, contusion, intra-abdominal, pneumothorax, intrathoracic, intracranial, neurologic, compartment syndrome, rhabdomyolysis, as well as other pathologies. The chart was completed utilizing [employer] Speech voice recognition software. Grammatical errors, random word insertions, pronoun errors, and incomplete sentences are an occasional consequence of this system due to software limitations, ambient noise, and hardware issues. Any formal questions or concerns about the content, text, or information contained within the body of this dictation should be directly addressed to the provider for clarification. Past Med/Surg History Problem List (Updated 05/21/24 @ 22:38 by Natividad Roblero PA-C) Laceration of left hand (Acute) Right lateral abdominal pain (Acute) Rib pain on right side (Acute) Closed head injury (Acute) Multiple falls (Acute) Dizziness (Acute) H/O therapeutic radiation to right lung nodule Lung cancer Squamous cell carcinoma of lung, stage I (Chronic 02/03/24) Parotid nodule Parathyroid abnormality Abnormal PET scan of head Encounter for pre-operative examination Pulmonary nodule Bilateral carotid artery stenosis Acute on chronic diastolic CHF (congestive heart failure) Pleural effusion (Acute) Hypoxia (Acute) [place] (dyspnea on exertion) (Acute) Pulmonary edema (Acute) Type 2 diabetes mellitus Vitamin D deficiency Hypertension Cardiac pacemaker 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 Lee Depression (Chronic) Arthritis (Acute) Diabetic retinopathy, nonproliferative (Acute) Dyslipidemia Medical History Chronic anemia Pacemaker Implanted 02/2022 (high-grade AV block), [employer] Follows with [facility] cardio History of TIA (transient ischemic attack) 2016 (per [facility] neurology records) SAH (subarachnoid hemorrhage) 2021 Congestive heart failure Essential hypertension Renal artery stenosis Following with [facility] vascular surgery History of skin cancer Melanoma Diabetes mellitus, type II Carotid artery stenosis Following with [facility] vascular surgery Pleural effusion Hx Surgical History History of thoracentesis Status post placement of cardiac pacemaker History of cataract surgery History of ear surgery History of dilatation and curettage Hx of tonsillectomy Family History Family/Other Family history of coronary arteriosclerosis Depression Mother Cardiovascular disease Diabetes Other Family history of bleeding disorder No family history of adverse response to anesthesia Social History Smoking Status: Former smoker Tobacco Type: Cigarettes Age Started Using Tobacco: 15; Age Quit Using Tobacco: 63; packs per day: 1; Second Hand Exposure: Yes (in the past); Do You Dip or Chew Tobacco: No; Hx Alcohol Use: No Preferred Language: Urdu Communication Ability: Effective Visual Impairment: No Limitations Hearing Ability: Hard of Hearing Security Shift Supervisor Required: No Beliefs That Will Affect Care: None marital status: / Current Living Situation: Family Current Living Situation Comment: daughter current occupational status: retired current occupation: worked in the [employer] How many Children do You have: 2 Feels Safe at Home: Yes Diet: diabetic and low salt Diet Comment: 1500 ml fluids per day fluid intake caffeine: Yes during the past year weight has: remained stable Do you think of yourself as: straight/heterosexual Gender Identity: Female Assistive Devices: Glasses and Hearing Aid - Bilateral Allergies Allergies Allergy/AdvReac Type Severity Reaction Status Date / Time bacitracin Allergy Mild red/itching Verified 05/21/24 20:39 neomycin Allergy Mild red/itching Verified 05/21/24 20:39 [From Neosporin ([id number])] polymyxin B Allergy Mild red/itching Verified 05/21/24 20:39 adhesive AdvReac Mild (Bandaid) Verified 05/21/24 21:20 Redness, itchy Home Meds Home Medications Medication Instructions Recorded Confirmed lancets 30 gauge (OneTouch Delica #25 ea 05/04/19 04/30/24 Lancets) vitamin E (dl, acetate) 180 mg 180 mg PO QAM 03/27/21 05/21/24 (400 unit) capsule venlafaxine 150 mg 300 mg PO QAM 07/03/21 05/21/24 capsule,extended release 24 hr methylphenidate HCl 10 mg tablet 10 mg PO BID 08/15/21 05/21/24 (Ritalin) ascorbic acid (vitamin C) 1,000 mg 1,000 mg PO QAM 10/28/23 05/21/24 tablet (Vitamin C) clopidogrel 75 mg tablet 75 mg PO QAM 10/28/23 05/21/24 olanzapine 15 mg tablet 15 mg PO HS 10/28/23 05/21/24 cholecalciferol (vitamin D3) 25 25 mcg PO QAM 01/22/24 05/21/24 mcg (1,000 unit) tablet (Vitamin D3) lorazepam 0.125 mg PO 4XD 04/21/24 05/21/24 mirtazapine 45 mg tablet 45 mg PO HS 05/21/24 05/21/24 Previous Rx's Medication Instructions Recorded OneTouch Ultra Test (blood sugar #400 ea 07/09/23 diagnostic) pen needle, diabetic 32 gauge x #400 ea 09/30/2302/11" (Comfort EZ Pen [place]) insulin aspart U-100 100 unit/mL See Rx Instructions subcut DAILY 01/02/24 (3 mL) subcutaneous pen (Novolog PRN hyperglycemia #15 mL FlexPen U-100 Insulin aspart) amlodipine 5 mg tablet 5 mg PO QAM #90 tabs 02/09/24 Lanrodrigous Kacieostar U-100 Insulin 100 3 unit (0.03 mL) subcut QPM #15 mL 03/02/24 unit/mL (3 mL) subcutaneous pen (insulin glargine) atorvastatin 40 mg tablet 40 mg PO QPM #90 tabs 03/22/24 furosemide 20 mg tablet 20 mg PO Q OTHER DAY #45 tabs 03/22/24 furosemide 40 mg tablet 40 mg PO Q OTHER DAY #45 tabs 03/22/24 hydralazine 50 mg tablet 50 mg PO BID #180 tabs 04/15/24 lisinopril 40 mg tablet 40 mg PO QAM #90 tabs 04/22/24 Results & Data (ED) Vital Signs Vital Signs - 24 hr 05/21/24 15:04 05/21/24 17:59 05/21/24 19:30 Temperature 36.5 C Temperature Source Temporal Artery Scan Pulse Rate 74 72 Pulse Rate [Apical] Pulse Rhythm [Apical] Pulse Strength [Apical] Respiratory Rate 18 Respiratory Effort / Characteristics Non-Labored Spontaneous Respiratory Depth Normal Respiratory Pattern Blood Pressure 138/57 L Blood Pressure [Left Arm] Blood Pressure Mean 84 Blood Pressure Mean [Left Arm] Blood Pressure Position [Left Arm] Pulse Oximetry 96 99 Oxygen Delivery Method Room Air Room Air Sepsis Recent Fever Within 48 Hours No Sepsis New/Unexplained Change in Mental Status N/A Sepsis Action Taken by Nursing No Action Required 05/21/24 19:37 05/21/24 20:03 05/21/24 21:30 Temperature Temperature Source Pulse Rate Pulse Rate [Apical] 67 67 67 Pulse Rhythm [Apical] Regular Regular Regular Pulse Strength [Apical] Normal Respiratory Rate 20 16 18 Respiratory Effort / Characteristics Non-Labored Spontaneous Non-Labored Spontaneous Non-Labored Spontaneous Respiratory Depth Normal Normal Normal Respiratory Pattern Regular Regular Regular Blood Pressure Blood Pressure [Left Arm] 165/69 H 186/109 H 183/95 H Blood Pressure Mean Blood Pressure Mean [Left Arm] 101 134 124 Blood Pressure Position [Left Arm] Semi-fowlers Pulse Oximetry 99 98 98 Oxygen Delivery Method Room Air Room Air Room Air Sepsis Recent Fever Within 48 Hours Sepsis New/Unexplained Change in Mental Status Sepsis Action Taken by Nursing 05/21/24 22:03 Temperature Temperature Source Pulse Rate 66 Pulse Rate [Apical] Pulse Rhythm [Apical] Pulse Strength [Apical] Respiratory Rate Respiratory Effort / Characteristics Respiratory Depth Respiratory Pattern Blood Pressure Blood Pressure [Left Arm] Blood Pressure Mean Blood Pressure Mean [Left Arm] Blood Pressure Position [Left Arm] Pulse Oximetry Oxygen Delivery Method Sepsis Recent Fever Within 48 Hours Sepsis New/Unexplained Change in Mental Status Sepsis Action Taken by Nursing Laboratory Data 05/21/24 16:48 05/21/24 16:48 Lab Results 05/21/24 05/21/24 05/21/24 Range/Units 16:48 16:54 18:33 WBC 5.40 (4.8-10.8) K/ul RBC 4.01 L (4.20-5.40) M/uL Hgb 11.3 L (12.0-16.0) g/dl POC Hgb 11.9 L (12.0-16.0) g/dl Hct 33.4 L (37.0-47.0) % POC Hct 35 L (37-47) % MCV 83.3 (80.0-100.0) fL MCH 28.2 (25.0-34.0) pg MCHC 33.8 (32.0-36.0) g/dL RDW Std Deviation 49.3 H (36.4-46.3) fL RDW Coeff of Juanita 16.2 H (11.5-14.5) % Plt Count 184 (130-400) K/uL MPV 11.3 (9.4-12.4) fL Immature Gran % (Auto) 0.2 % Neut % (Auto) 73.2 % Lymph % (Auto) 13.7 % Petroleum % (Auto) 11.9 % Eos % (Auto) 0.4 % Baso % (Auto) 0.6 % Neut # (Auto) 3.96 (1.40-6.50) K/uL Lymph # (Auto) 0.74 L (1.20-3.40) K/uL Petroleum # (Auto) 0.64 H (0.11-0.59) K/uL Eos # (Auto) 0.02 (0.00-0.50) K/uL Baso # (Auto) 0.03 (0.00-0.20) K/uL Immature Gran # (Auto) 0.01 (0.01-0.20) K/uL PT 11.8 (9.0-12.0) Seconds INR 1.1 (0.9-1.1) APTT 28 (21-31) Seconds PTT Ratio 1.0 POC Sodium 135 (135-144) mmol/L Sodium 136 (136-145) mmol/L POC Potassium 3.9 (3.3-5.0) mmol/L Potassium 3.9 (3.5-5.1) mmol/L POC Chloride 98 L (101-112) mmol/L Chloride 98 (98-107) mmol/L Carbon Dioxide 29 (21-32) mmol/L POC Total CO2 27 (24-31) mmol/L Anion Gap 9 (3-11) POC Anion Gap 15.0 L (16-25) mmol/L POC BUN 47 H (7-18) mg/dl BUN 59 H (6-23) mg/dl Creatinine 1.81 H (0.6-1.2) mg/dl POC Creatinine 2.0 H (0.6-1.3) mg/dl Est Cr Clr Drug Dosing Not Reportable Est GFR ( Amer) 28.8 ml/min Est GFR (Non-Af Amer) 24.9 ml/min BUN/Creatinine Ratio 32.6 H (10-20) Glucose 81 (70-99(Fasting)) mg/dl POC Glucose (other) 81 (70-99) mg/dl Calcium 9.5 (8.6-10.3) mg/dl POC Ioniz Calcium Anastasiia 1.09 L (1.12-1.32) mmol/l Total Bilirubin 0.5 (0.2-1.0) mg/dl AST 24 (13-39) U/L ALT 22 (7-52) U/L Alkaline Phosphatase 59 (34-104) U/L Troponin I High Sens 23.2 H (0-14) pg/ml Total Protein 7.1 (6.0-8.3) gm/dl Albumin 4.4 (3.4-5.0) gm/dl Globulin 2.7 (2.5-4.0) gm/dl Albumin/Globulin Ratio 1.6 (0.9-2) Urine Color Yellow Urine Appearance Clear (Clear) Urine pH 8.0 H (4.5-7.5) Ur Specific [place] 1.007 (1.000-1.030) Urine Protein Negative (Negative) Urine Glucose (UA) Negative (Negative) Urine Ketones Negative (Negative) Urine Blood Negative (Negative) Urine Nitrite Negative (Negative) Urine Bilirubin Negative (Negative) Urine Urobilinogen Negative (Negative) Ur Leukocyte Esterase Negative (Negative) 05/21/24 Range/Units 19:23 WBC (4.8-10.8) K/ul RBC (4.20-5.40) M/uL Hgb (12.0-16.0) g/dl POC Hgb (12.0-16.0) g/dl Hct (37.0-47.0) % POC Hct (37-47) % MCV (80.0-100.0) fL MCH (25.0-34.0) pg MCHC (32.0-36.0) g/dL RDW Std Deviation (36.4-46.3) fL RDW Coeff of Juanita (11.5-14.5) % Plt Count (130-400) K/uL MPV (9.4-12.4) fL Immature Gran % (Auto) % Neut % (Auto) % Lymph % (Auto) % Petroleum % (Auto) % Eos % (Auto) % Baso % (Auto) % Neut # (Auto) (1.40-6.50) K/uL Lymph # (Auto) (1.20-3.40) K/uL Petroleum # (Auto) (0.11-0.59) K/uL Eos # (Auto) (0.00-0.50) K/uL Baso # (Auto) (0.00-0.20) K/uL Immature Gran # (Auto) (0.01-0.20) K/uL PT (9.0-12.0) Seconds INR (0.9-1.1) APTT (21-31) Seconds PTT Ratio POC Sodium (135-144) mmol/L Sodium (136-145) mmol/L POC Potassium (3.3-5.0) mmol/L Potassium (3.5-5.1) mmol/L POC Chloride (101-112) mmol/L Chloride (98-107) mmol/L Carbon Dioxide (21-32) mmol/L POC Total CO2 (24-31) mmol/L Anion Gap (3-11) POC Anion Gap (16-25) mmol/L POC BUN (7-18) mg/dl BUN (6-23) mg/dl Creatinine (0.6-1.2) mg/dl POC Creatinine (0.6-1.3) mg/dl Est Cr Clr Drug Dosing Est GFR ( Amer) ml/min Est GFR (Non-Af Amer) ml/min BUN/Creatinine Ratio (10-20) Glucose (70-99(Fasting)) mg/dl POC Glucose (other) (70-99) mg/dl Calcium (8.6-10.3) mg/dl POC Ioniz Calcium Anastasiia (1.12-1.32) mmol/l Total Bilirubin (0.2-1.0) mg/dl AST (13-39) U/L ALT (7-52) U/L Alkaline Phosphatase (34-104) U/L Troponin I High Sens 24.8 H (0-14) pg/ml Total Protein (6.0-8.3) gm/dl Albumin (3.4-5.0) gm/dl Globulin (2.5-4.0) gm/dl Albumin/Globulin Ratio (0.9-2) Urine Color Urine Appearance (Clear) Urine pH (4.5-7.5) Ur Specific [place] (1.000-1.030) Urine Protein (Negative) Urine Glucose (UA) (Negative) Urine Ketones (Negative) Urine Blood (Negative) Urine Nitrite (Negative) Urine Bilirubin (Negative) Urine Urobilinogen (Negative) Ur Leukocyte Esterase (Negative) Administered Medications Discontinued Medications Lidocaine/Epinephrine (Lidocaine 1%/Epinephrine 1:100,000 50 Ml Vial) 20 ml INFIL NOW ONE Stop: 05/21/24 16:24 Last Admin: 05/21/24 18:42 Dose: 20 ml Documented By: ADL Lidocaine/Epinephrine (Lidocaine 1%/Epinephrine 1:100,000 50 Ml Vial) Confirm Administered Dose 1 ml .ROUTE .STK-MED ONE Stop: 05/21/24 18:41 Last Admin: 05/21/24 18:42 Dose: Not Given Documented By: [facility] Imaging Data Radiologist's Impression: Cervical Spine CT 05/21/24 16:23 CT cervical spine wo con CLINICAL HISTORY: fall, head injury TECHNIQUE: Multidetector row helical CT of the cervical spine was performed without administration of intravenous contrast. Coronal and sagittal reformations were obtained. Automated dose lowering techniques and/or adjustment according to patient size were utilized for this exam. Comparison: Comparison is made to CT cervical spine 10/28/2023 FINDINGS: No acute fractures or subluxations are identified. Degenerative changes are seen in the visualized spine. 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 Soft tissues are unremarkable. IMPRESSION: Degenerative changes without evidence of acute bony injury. ACT 112: Negative or not required by law. Electronically signed by: Waylon Robert M.D. 05/21/2024 5:35 PM Hand X-Ray 05/21/24 16:23 XR hand LT min 3V routine CLINICAL HISTORY: pain, laceration, fall TECHNIQUE: 3 views of the left hand were obtained. Comparison: None available at the time of this dictation. FINDINGS: There is no evidence of an acute fracture. Mild degenerative changes are seen in the interphalangeal joints. No soft tissue abnormality is seen. IMPRESSION: Degenerative changes are seen without evidence of acute abnormality. ACT 112: Negative or not required by law. Electronically signed by: Wayoln Robert M.D. 05/21/2024 5:[address] 05/21/24 16:23 CT head/brain wo con CLINICAL HISTORY: fall, head injury, on plavix Technique: Contiguous axial CT images of the head were acquired from the base of the skull to the vertex without intravenous contrast administration. Images were viewed in brain, subdural and bone windows. Automated dose lowering techniques and/or adjustment according to patient size were utilized for this exam. Comparison: None available at the time of this dictation. Findings: The ventricles, basal cisterns, and cerebral sulci are normal. There is no acute intracranial hemorrhage or evidence of acute territorial infarction. Neither mass effect, shift of the midline structures, nor abnormal extra-axial fluid collections are shown. Imaged portions of the paranasal sinuses and mastoid air cells are clear. The orbits appear normal. There are no acute fractures of the calvaria or scalp swelling. Impression: No acute intracranial hemorrhage, no evidence of acute territorial infarction or other acute intracranial disease process. ACT 112: Negative or not required by law. Electronically signed by: Waylon Robert M.D. 05/21/2024 5:33 PM Abdomen/Pelvis CT 05/21/24 16:58 CT abd pelvis wo con CLINICAL HISTORY: right side pain, fall TECHNIQUE: Helical axial images of the abdomen and pelvis were obtained. Automated dose lowering techniques and/or adjustment according to patient size were utilized for this exam. This exam was performed without intravenous contrast. CT DOSE: 2329.33 mGy.cm COMPARISON: Comparison is made to CT abdomen pelvis 10/28/2023 FINDINGS: Lower chest: For findings above the diaphragm, please see CT chest performed same day. Liver: Unremarkable. No focal lesions are seen. Gallbladder and biliary tree: Cholelithiasis is seen without evidence of cholecystitis. No intra- or extrahepatic biliary ductal dilation. Pancreas: Unremarkable, no focal lesions. Spleen: Unremarkable. Adrenals: Bilateral adrenal thickening is seen. Kidneys and ureters: Unremarkable. Bladder: Unremarkable. Reproductive organs: Unremarkable. Bowel: The appendix is normal. Lymph nodes Retroperitoneal: Enlarged retroperitoneal lymph nodes measure up to 15 mm. Pelvic: Unremarkable. Mesenteric: Unremarkable. Peritoneum: Normal. Vessels: Atherosclerotic calcifications are seen. Abdominal wall: Unremarkable. Bones: Degenerative changes in the visualized spine. IMPRESSION: 1. No acute abnormality. No evidence of right-sided fractures. 2. Cholelithiasis without cholecystitis. ACT 112: Negative or not required by law. Electronically signed by: Waylon Robert M.D. 05/21/2024 6:[address] 05/21/24 16:58 CT chest diagnostic wo con CLINICAL HISTORY: right rib pain, fall TECHNIQUE: Multidetector row helical CT of the chest was performed. Coronal and sagittal reformations were obtained. Automated dose lowering techniques and/or adjustment according to patient size were utilized for this exam. Comparison: Comparison is made to CT radiation therapy 02/20/[address] chest 01/02/2024 FINDINGS: Lungs and pleura: Post radiation appearance of the right lower lobe nodule measuring 14 mm compared to 21 mm in the prior exam. 8 mm right lower lobe nodule is stable. There is residual thickening is seen. Heart and pericardium: Cardiomegaly is seen with biatrial enlargement. Vessels: Severe atherosclerotic changes in the aorta and coronary arteries. Mediastinum and elvis: Subcentimeter lymph nodes are seen. Chest wall and lower neck: Unremarkable. Abdomen: For findings below the diaphragm, please refer to CT of the abdomen dated the same. Bones: Degenerative changes in the thoracic spine. IMPRESSION: 1. No acute abnormalities and in particular no evidence of right rib fracture. 2. Response to treatment status post radiation therapy with decrease in size of right lower lobe pulmonary nodule. 8 mm indeterminate nodule in the right lower lobe is stable. ACT 112: Negative or not required by law. Electronically signed by: Waylon Robert M.D. 05/21/2024 5:40 PM Discharge Plan Visit Data Chief Complaint: Laceration/Cut (Suture/Dermabond) Stated Complaint: FALL, CUT ON HAND ED Provider: Romaine Layne ED Midlevel Provider: Natividad Roblero Discharge Problem: Dizziness, Multiple falls, Closed head injury, Rib pain on right side, Right lateral abdominal pain, Laceration of left hand Patient Disposition: Admitted As Inpatient Forms Stand Alone Forms: [facility], Important Visit Information Prescriptions Prescriptions: No Action methylphenidate HCl [Ritalin] 10 mg tablet 10 mg PO BID insulin aspart U-100 [Novolog FlexPen U-100 Insulin] 100 unit/mL (3 mL) insulin pen See Rx Instructions subcut DAILY MDD 15 units PRN (Reason: hyperglycemia) Qty: 15 1RF Rx Instructions: per sliding scale subcutaneously; carb to insulin ration amlodipine 5 mg tablet 5 mg PO QAM Qty: 90 3RF insulin glargine [Lantus Solostar U-100 Insulin] 100 unit/mL (3 mL) insulin pen 3 unit subcut QPM Qty: 15 3RF hydralazine 50 mg tablet 50 mg PO BID Qty: 180 3RF lisinopril 40 mg tablet 40 mg PO QAM Qty: 90 3RF (DME) lancets [OneTouch Delica Lancets] 30 gauge misc See Dose Instructions .ROUTE .MEDSUPPLY Qty: 25 Rx Instructions: As directed lorazepam liquid 0.125 mg PO 4XD (DME) pen needle, diabetic [Comfort EZ Pen [place]] 32 gauge x 5/16" needle See Rx Instructions .Route Qty: 400 3RF Rx Instructions: use for daily injections, change needle with each of 4 injections daily venlafaxine 150 mg capsule,extended release 24hr 300 mg PO QAM Rx Instructions: 2 tablet dose vitamin E (dl, acetate) 400 unit capsule 180 mg PO QAM (DME) OneTouch Ultra Test Strip See Rx Instructions .ROUTE .MEDSUPPLY Qty: 400 3RF Rx Instructions: test 4 times a day atorvastatin 40 mg tablet 40 mg PO QPM Qty: 90 3RF Rx Instructions: take 1 tablet by mouth once daily furosemide 20 mg tablet 20 mg PO Q OTHER DAY Qty: 45 3RF Rx Instructions: Alternate Furosemide 20 mg with 40 mg every other day furosemide 40 mg tablet 40 mg PO Q OTHER DAY Qty: 45 3RF Rx Instructions: Alternate Furosemide 20 mg with 40 mg every other day ascorbic acid (vitamin C) [Vitamin C] 1,000 mg Tablet 1,000 mg PO QAM olanzapine 15 mg tablet 15 mg PO HS clopidogrel 75 mg tablet 75 mg PO QAM Rx Instructions: take 1 tablet by mouth every morning cholecalciferol (vitamin D3) [Vitamin D3] 25 mcg (1,000 unit) Tablet 25 mcg PO QAM mirtazapine 45 mg tablet 45 mg PO HS Referrals Referrals: Aretha Shore DO [Primary Care Provider] -
[2024-05-21 17:00] LABS: Basophils # (auto) 0.03 K/uL (0.00-0.20); Basophils % (auto) 0.6 %; Eosinophils # (auto) 0.02 K/uL (0.00-0.50); Eosinophils % (auto) 0.4 %; Hematocrit (blood only) 33.4 % (37.0-47.0); Hemoglobin 11.3 g/dl (12.0-16.0); Immature Granulocytes # (auto) 0.01 K/uL (0.01-0.20); Immature Granulocytes % (auto) 0.2 %; Lymphocytes # (auto) 0.74 K/uL (1.20-3.40); Lymphocytes % (auto) 13.7 %; Mean Corpuscular Hemoglobin 28.2 pg (25.0-34.0); Mean Corpuscular Hgb Conc 33.8 g/dL (32.0-36.0); Mean Corpuscular Volume 83.3 fL (80.0-100.0); Mean Platelet Volume 11.3 fL (9.4-12.4); Monocytes # (auto) 0.64 K/uL (0.11-0.59); Monocytes % (auto) 11.9 %; Neutrophils # (auto) 3.96 K/uL (1.40-6.50); Neutrophils % (auto) 73.2 %; Platelet Count 184 K/uL (130-400); RDW Coefficient of Variation 16.2 % (11.5-14.5); RDW Standard Deviation 49.3 fL (36.4-46.3); Red Blood Count 4.01 M/uL (4.20-5.40)
[2024-05-21 17:08] LABS: iSTAT Hemoglobin 11.9 g/dl (12.0-16.0); iSTAT Ionized Calcium 1.09 mmol/l (1.12-1.32); iSTAT Potassium 3.9 mmol/L (3.3-5.0)
[2024-05-21 17:08] LABS: INR 1.1 (0.9-1.1); Partial Thromboplastin Time 28 Seconds (21-31); Prothrombin Time 11.8 Seconds (9.0-12.0)
--- NOTE | 2024-05-21 17:08 | Emergency Department Note ---
ED Visit Note I was consulted by the Advanced Practice Provider. I personally made/approved the management plan and take responsibility for the patient management. I performed a substantive portion of the visit. This includes the aspects of: -History/Physical/Personally seeing the patient -MDM -I independently interpreted the following studies: Blood work showing elevated troponin, creatinine elevation, anemia - >50% time spent by physician Laceration pair was performed by myself on patient's left hand Location: Left palmar aspect Total length: 3 cm Complexity: V-shaped, simple Verbal consent was obtained after the risks and benefits were explained, including but not limited to bleeding, scarring, infection, pain, and bone/joint/nerve damage. At this time, the risks of the procedure are less than the risks of NOT performing the procedure. A time out was taken and the correct patient and site identified. The skin was prepped with betadine. The target area was anesthetized with 5 ml of 1% lidocaine with epinephrine. Copious irrigation was performed using saline. The skin was re-prepped with betadine and a sterile field set. The wound was explored for foreign bodies and none found. Examination revealed no injury to deep structures such as tendons, bone, or significant blood vessels. Debridement was not performed. The wound edges were approximated using 5, 4-0 simple interrupted nylon sutures. Hemostasis and excellent approximation was achieved. Antibacterial ointment and a sterile dressing applied. Detailed wound care instructions and signs and symptoms of infection reviewed with the daughter. No complications and the patient tolerated the procedure well. .
[2024-05-21 17:23] LABS: Alanine Aminotransferase 22 U/L (7-52); Albumin Globulin Ratio 1.6 (0.9-2); Albumin Level 4.4 gm/dl (3.4-5.0); Alkaline Phosphatase 59 U/L (34-104); Anion Gap 9 (3-11); Aspartate Aminotransferase 24 U/L (13-39); BUN Creatinine Ratio 32.6 (10-20); Bilirubin,Total 0.5 mg/dl (0.2-1.0); Blood Urea Nitrogen 59 mg/dl (6-23); Calcium 9.5 mg/dl (8.6-10.3); Carbon Dioxide 29 mmol/L (21-32); Chloride 98 mmol/L (98-107); Est GFR (African American) 28.8 ml/min; Est GFR (Non-African American) 24.9 ml/min; Globulin 2.7 gm/dl (2.5-4.0); Glucose 81 mg/dl (70-99(Fasting)); Potassium 3.9 mmol/L (3.5-5.1); Sodium 136 mmol/L (136-145); Total Protein 7.1 gm/dl (6.0-8.3)
[2024-05-21 17:29] LABS: Troponin I High Sensitivity 23.2 pg/ml (0-14)
--- NOTE | 2024-05-21 17:35 | XRay Report ---
XR hand LT min 3V routine CLINICAL HISTORY: pain, laceration, fall TECHNIQUE: 3 views of the left hand were obtained. Comparison: None available at the time of this dictation. FINDINGS: There is no evidence of an acute fracture. Mild degenerative changes are seen in the interphalangeal joints. No soft tissue abnormality is seen. IMPRESSION: Degenerative changes are seen without evidence of acute abnormality. ACT 112: Negative or not required by law. Electronically signed by: Waylon Robert M.D. 05/21/2024 5:33 PM
--- NOTE | 2024-05-21 17:35 | CT Scan Report ---
CT head/brain wo con CLINICAL HISTORY: fall, head injury, on plavix Technique: Contiguous axial CT images of the head were acquired from the base of the skull to the minnie karen without intravenous contrast administration. Images were viewed in brain, subdural and bone windo ws. Automated dose lowering techniques and/or adjustment according to patient size were utilized for this exam. Comparison: None available at the time of this dictation. Findings: The ventricles, basal cisterns, and cerebral sulci are normal. There is no acute intracranial hemorrh age or evidence of acute territorial infarction. Neither mass effect, shift of the midline structures , nor abnormal extra-axial fluid collections are shown. Imaged portions of the paranasal sinuses and mastoid air cells are clear. The orbits appear normal. There are no acute fractures of the calvaria or scalp swelling. Impression: No acute intracranial hemorrhage, no evidence of acute territorial infarction or other acute intracra nial disease process. ACT 112: Negative or not required by law. Electronically signed by: Waylon Robert M.D. 05/21/2024 5:33 PM
--- NOTE | 2024-05-21 17:37 | CT Scan Report ---
CT cervical spine wo con CLINICAL HISTORY: fall, head injury TECHNIQUE: Multidetector row helical CT of the cervical spine was performed without administration of intravenous contrast. Coronal and sagittal reformations were obtained. Automated dose lowering techn iques and/or adjustment according to patient size were utilized for this exam. Comparison: Comparison is made to CT cervical spine 10/28/2023 FINDINGS: No acute fractures or subluxations are identified. Degenerative changes are seen in the visualized sp ine. 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 Soft tissues are unremarkable. IMPRESSION: Degenerative changes without evidence of acute bony injury. ACT 112: Negative or not required by law. Electronically signed by: Waylon Robert M.D. 05/21/2024 5:35 PM
--- NOTE | 2024-05-21 17:42 | CT Scan Report ---
CT chest diagnostic wo con CLINICAL HISTORY: right rib pain, fall TECHNIQUE: Multidetector row helical CT of the chest was performed. Coronal and sagittal reformations were obtained. Automated dose lowering techniques and/or adjustment according to patient size were u tilized for this exam. Comparison: Comparison is made to CT radiation therapy 02/20/[address] chest 01/02/2024 FINDINGS: Lungs and pleura: Post radiation appearance of the right lower lobe nodule measuring 14 mm compared t o 21 mm in the prior exam. 8 mm right lower lobe nodule is stable. There is residual thickening is se en. Heart and pericardium: Cardiomegaly is seen with biatrial enlargement. Vessels: Severe atherosclerotic changes in the aorta and coronary arteries. Mediastinum and elvis: Subcentimeter lymph nodes are seen. Chest wall and lower neck: Unremarkable. Abdomen: For findings below the diaphragm, please refer to CT of the abdomen dated the same. Bones: Degenerative changes in the thoracic spine. IMPRESSION: 1. No acute abnormalities and in particular no evidence of right rib fracture. 2. Response to treatment status post radiation therapy with decrease in size of right lower lobe pul monary nodule. 8 mm indeterminate nodule in the right lower lobe is stable. ACT 112: Negative or not required by law. Electronically signed by: Waylon Robert M.D. 05/21/2024 5:40 PM
--- NOTE | 2024-05-21 18:09 | CT Scan Report ---
CT abd pelvis wo con CLINICAL HISTORY: right side pain, fall TECHNIQUE: Helical axial images of the abdomen and pelvis were obtained. Automated dose lowering tech niques and/or adjustment according to patient size were utilized for this exam. This exam was perfor med without intravenous contrast. CT DOSE: 2329.33 mGy.cm COMPARISON: Comparison is made to CT abdomen pelvis 10/28/2023 FINDINGS: Lower chest: For findings above the diaphragm, please see CT chest performed same day. Liver: Unremarkable. No focal lesions are seen. Gallbladder and biliary tree: Cholelithiasis is seen without evidence of cholecystitis. No intra- or extrahepatic biliary ductal dilation. Pancreas: Unremarkable, no focal lesions. Spleen: Unremarkable. Adrenals: Bilateral adrenal thickening is seen. Kidneys and ureters: Unremarkable. Bladder: Unremarkable. Reproductive organs: Unremarkable. Bowel: The appendix is normal. Lymph nodes Retroperitoneal: Enlarged retroperitoneal lymph nodes measure up to 15 mm. Pelvic: Unremarkable. Mesenteric: Unremarkable. Peritoneum: Normal. Vessels: Atherosclerotic calcifications are seen. Abdominal wall: Unremarkable. Bones: Degenerative changes in the visualized spine. IMPRESSION: 1. No acute abnormality. No evidence of right-sided fractures. 2. Cholelithiasis without cholecystitis. ACT 112: Negative or not required by law. Electronically signed by: Waylon Robert M.D. 05/21/2024 6:07 PM
[2024-05-21] MEDS: LIDOCAINE 1%/EPINEPHRINE 1:100,000 50 ML VIAL ONE (18:42)
[2024-05-21] MEDS: LIDOCAINE 1%/EPINEPHRINE 1:100,000 50 ML VIAL INFIL ONE (18:42)
[2024-05-21 18:50] LABS: Appearance Urine Clear (Clear); Bilirubin Urine Negative (Negative); Blood Urine Negative (Negative); Color Urine Yellow; Glucose Urine UA Negative (Negative); Ketones Urine Negative (Negative); Leukocyte Esterase Urine Negative (Negative); Nitrite Urine Negative (Negative); Protein Urine Negative (Negative); Specific Gravity Urine 1.007 (1.000-1.030); Urobilinogen Urine Negative (Negative)
--- NOTE | 2024-05-21 21:18 | History & Physical Report ---
Date of Service May 21, 2024 Assessment & Plan (1) Multiple falls: (2) Medication side effect: (3) Laceration of left hand: (4) H/O therapeutic radiation: (5) Squamous cell carcinoma of lung, stage I: (6) Type 2 diabetes mellitus: (7) Hypertension: (8) (HFpEF) heart failure with preserved ejection fraction: (9) High-grade atrioventricular block: (10) Chronic kidney disease, stage 3 (moderate): (11) Dyslipidemia: Plan Multiple falls/medication side effect/rumination disorder/depression- Patient had multiple falls over the past few days after having mirtazapine increased from 15 to 45 mg at bedtime Continue methylphenidate, olanzapine, venlafaxine and lorazepam Resume mirtazapine at 15 mg per family request Diabetes mellitus- Hold glargine placed on Accu-Cheks with NovoLog SSI Increased troponin/hypertension/HFpEF- The patient will be admitted to telemetry for serial cardiac enzymes, serial EKG's, cardiac rhythm monitoring Initial troponin 23.2, with follow-up 24.8, without acute EKG changes. Likely type II Continue amlodipine, hydralazine and clopidogrel Hold furosemide Acute kidney injury superimposed on CKD- Creatinine 1.81, with base 1.54 Hold lisinopril and furosemide Placed on NSS at 80 mL/h x 1 L Recheck laboratories in a.m. Lung cancer- CT chest with decreasing right lower lobe pulmonary nodule suggesting response to radiation therapy History of Present Illness Chief Complaint: The patient presents to the emergency department, with her daughter, with complaint of multiple falls over the past few days, sustaining a laceration to her left hand with her most recent fall Primary Care Provider: Aretha Shore DO The patient is an 84-year-old female with a past medical history including rumination disorder, lung cancer, right lower lobe pulmonary nodule, bilateral carotid artery stenosis, diabetes mellitus type 2, hypertension, cardiac pacemaker, hearing loss, HFpEF, CKD stage IIIb, nonproliferative diabetic retinopathy, dyslipidemia and history of therapeutic radiation. The patient was brought to the emergency department due to multiple falls over the past few days, sustaining a laceration to her left hand today. Her daughter reports that the patient has been more lethargic and falling since her mirtazapine was increased from 15 to 45 mg daily few days ago. The daughter provides most of the HPI and review of systems, although patient does contribute Allergies Allergy/AdvReac Type Severity Reaction Status Date / Time bacitracin Allergy Mild red/itching Verified 05/21/24 20:39 neomycin Allergy Mild red/itching Verified 05/21/24 20:39 [From Neosporin ([id number])] polymyxin B Allergy Mild red/itching Verified 05/21/24 20:39 adhesive AdvReac Mild (Bandaid) Verified 05/21/24 21:20 Redness, itchy Home Medications Medication Instructions Recorded Confirmed Type lancets 30 gauge (OneTouch Delica #25 ea 05/04/19 04/30/24 History Lancets) vitamin E (dl, acetate) 180 mg 180 mg PO QAM 03/27/21 05/21/24 History (400 unit) capsule venlafaxine 150 mg 300 mg PO QAM 07/03/21 05/21/24 History capsule,extended release 24 hr methylphenidate HCl 10 mg tablet 10 mg PO BID 08/15/21 05/21/24 History (Ritalin) OneTouch Ultra Test (blood sugar #400 ea 07/09/23 05/21/24 Rx diagnostic) pen needle, diabetic 32 gauge x #400 ea 09/30/23 05/21/24 Rx 5/16" (Comfort EZ Pen [place]) ascorbic acid (vitamin C) 1,000 mg 1,000 mg PO QAM 10/28/23 05/21/24 History tablet (Vitamin C) clopidogrel 75 mg tablet 75 mg PO QAM 10/28/23 05/21/24 History olanzapine 15 mg tablet 15 mg PO HS 10/28/23 05/21/24 History insulin aspart U-100 100 unit/mL See Rx Instructions subcut DAILY 01/02/24 05/21/24 Rx (3 mL) subcutaneous pen (Novolog PRN hyperglycemia #15 mL FlexPen U-100 Insulin aspart) cholecalciferol (vitamin D3) 25 25 mcg PO QAM 01/22/24 05/21/24 History mcg (1,000 unit) tablet (Vitamin D3) amlodipine 5 mg tablet 5 mg PO QAM #90 tabs 02/09/24 05/21/24 Rx Lantus Solostar U-100 Insulin 100 3 unit (0.03 mL) subcut QPM #15 mL 03/02/24 05/21/24 Rx unit/mL (3 mL) subcutaneous pen (insulin glargine) atorvastatin 40 mg tablet 40 mg PO QPM #90 tabs 03/22/24 05/21/24 Rx furosemide 20 mg tablet 20 mg PO Q OTHER DAY #45 tabs 03/22/24 05/21/24 Rx furosemide 40 mg tablet 40 mg PO Q OTHER DAY #45 tabs 03/22/24 05/21/24 Rx hydralazine 50 mg tablet 50 mg PO BID #180 tabs 04/15/24 05/21/24 Rx lorazepam 0.125 mg PO 4XD 04/21/24 05/21/24 History lisinopril 40 mg tablet 40 mg PO QAM #90 tabs 04/22/24 05/21/24 Rx mirtazapine 45 mg tablet 45 mg PO HS 05/21/24 05/21/24 History Past Med/Surg History Problem List (Updated 05/22/24 @ 03:19 by Cyrus Squires MD) Diabetes mellitus, type II Medication side effect Laceration of left hand (Acute) Right lateral abdominal pain (Acute) Rib pain on right side (Acute) Closed head injury (Acute) Multiple falls (Acute) Dizziness (Acute) H/O therapeutic radiation to right lung nodule Lung cancer Squamous cell carcinoma of lung, stage I (Chronic 02/03/24) Parotid nodule Parathyroid abnormality Abnormal PET scan of head Encounter for pre-operative examination Pulmonary nodule Bilateral carotid artery stenosis Acute on chronic diastolic CHF (congestive heart failure) Pleural effusion (Acute) Hypoxia (Acute) [place] (dyspnea on exertion) (Acute) Pulmonary edema (Acute) Type 2 diabetes mellitus Vitamin D deficiency Hypertension Cardiac pacemaker 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 Lee Depression (Chronic) Arthritis (Acute) Diabetic retinopathy, nonproliferative (Acute) Dyslipidemia Medical History Chronic anemia Pacemaker Implanted 02/2022 (high-grade AV block), [employer] Follows with [facility] cardio History of TIA (transient ischemic attack) 2016 (per [facility] neurology records) SAH (subarachnoid hemorrhage) 2022 Congestive heart failure Essential hypertension Renal artery stenosis Following with [facility] vascular surgery History of skin cancer Melanoma Diabetes mellitus, type II Carotid artery stenosis Following with [facility] vascular surgery Pleural effusion Hx Surgical History History of thoracentesis Status post placement of cardiac pacemaker History of cataract surgery History of ear surgery History of dilatation and curettage Hx of tonsillectomy Family History Family/Other Family history of coronary arteriosclerosis Depression Mother Cardiovascular disease Diabetes Other Family history of bleeding disorder No family history of adverse response to anesthesia Social History Smoking Status: Former smoker Tobacco Type: Cigarettes Age Started Using Tobacco: 15; Age Quit Using Tobacco: 63; packs per day: 1; Second Hand Exposure: Yes (in the past); Do You Dip or Chew Tobacco: No; Hx Alcohol Use: No Hx Substance Use: No Preferred Language: Mexican Communication Ability: Effective Visual Impairment: No Limitations Hearing Ability: Hard of Hearing White [place] Hacker Required: No Beliefs That Will Affect Care: None marital status: / Current Living Situation: Family Current Living Situation Comment: lives with daughter Siobhan current occupational status: retired current occupation: worked in the [employer] How many Children do You have: 2 Feels Safe at Home: Yes Diet: diabetic and low salt Diet Comment: 1500 ml fluids per day fluid intake caffeine: Yes during the past year weight has: remained stable Do you think of yourself as: straight/heterosexual Gender Identity: Female Assistive Devices: Glasses and Hearing Aid - Bilateral Review of Systems Review of Systems: The patient denies chest pain, palpitations, shortness of breath, dyspnea on exertion, cough, lower extremity swelling, sore throat, fevers, chills, sweats, nausea, vomiting, diarrhea , constipation, abdominal pain, pelvic pain, blood in urine or stool, dysuria, urinary frequency or urgency, rash, abnormal bruising or bleeding, generalized arthralgias or myalgias, back or neck pain, or night sweats. The review of systems is otherwise negative other than for that already noted above, and at least 10 systems have been reviewed. Physical Exam Physical Exam: The patient is awake, mildly confused, normocephalic and atraumatic, lying in bed and in no acute distress. HEENT--PERRL, EOMI, mucous membranes and oropharynx dry. Neck--supple. No JVD. No bruits. Thyroid normal, trachea midline, no adenopathy. Heart--normal S1 and S2. No murmurs, rubs or gallops. Lungs--clear bilaterally, no respiratory distress, no accessory muscle use. Abdomen--normal bowel sounds and soft. Nontender. Nondistended, no hernias or masses, no organomegaly. Extremities--left hand laceration wrapped Dermatologic--normal skin turgor, normal color, no abnormal lymph nodes, no rash. Neurologic--cranial nerves II through XII grossly intact. Rheumatologic--normal range of motion. Psychiatric--normal affect.9 Results & Data Results & Data Vital Signs (Past 12 Hours) Vital Signs Temp Pulse Pulse Resp BP BP Pulse Ox 05/21/24 20:03 67 16 186/109 H 98 05/21/24 19:37 67 20 165/69 H 99 05/21/24 19:30 99 05/21/24 17:59 72 05/21/24 15:04 36.5 C 74 18 138/57 L 96 O2 Del Method 05/21/24 20:03 Room Air 05/21/24 19:37 Room Air 05/21/24 19:30 Room Air 05/21/24 17:59 05/21/24 15:04 Room Air Laboratory Results Laboratory Results WBC 5.40 K/ul (4.8-10.8) 05/21/24 16:48 RBC 4.01 M/uL (4.20-5.40) L 05/21/24 16:48 Hgb 11.3 g/dl (12.0-16.0) L 05/21/24 16:48 POC Hgb 11.9 g/dl (12.0-16.0) L 05/21/24 16:54 Hct 33.4 % (37.0-47.0) L 05/21/24 16:48 POC Hct 35 % (37-47) L 05/21/24 16:54 MCV 83.3 fL (80.0-100.0) 05/21/24 16:48 MCH 28.2 pg (25.0-34.0) 05/21/24 16:48 MCHC 33.8 g/dL (32.0-36.0) 05/21/24 16:48 RDW Std Deviation 49.3 fL (36.4-46.3) H 05/21/24 16:48 RDW Coeff of Juanita 16.2 % (11.5-14.5) H 05/21/24 16:48 Plt Count 184 K/uL (130-400) 05/21/24 16:48 MPV 11.3 fL (9.4-12.4) 05/21/24 16:48 Immature Gran % (Auto) 0.2 % 05/21/24 16:48 Neut % (Auto) 73.2 % 05/21/24 16:48 Lymph % (Auto) 13.7 % 05/21/24 16:48 [place] % (Auto) 11.9 % 05/21/24 16:48 Eos % (Auto) 0.4 % 05/21/24 16:48 Baso % (Auto) 0.6 % 05/21/24 16:48 Neut # (Auto) 3.96 K/uL (1.40-6.50) 05/21/24 16:48 Lymph # (Auto) 0.74 K/uL (1.20-3.40) L 05/21/24 16:48 [place] # (Auto) 0.64 K/uL (0.11-0.59) H 05/21/24 16:48 Eos # (Auto) 0.02 K/uL (0.00-0.50) 05/21/24 16:48 Baso # (Auto) 0.03 K/uL (0.00-0.20) 05/21/24 16:48 Immature Gran # (Auto) 0.01 K/uL (0.01-0.20) 05/21/24 16:48 PT 11.8 Seconds (9.0-12.0) 05/21/24 16:48 INR 1.1 (0.9-1.1) 05/21/24 16:48 APTT 28 Seconds (21-31) 05/21/24 16:48 PTT Ratio 1.0 05/21/24 16:48 POC Sodium 135 mmol/L (135-144) 05/21/24 16:54 Sodium 136 mmol/L (136-145) 05/21/24 16:48 POC Potassium 3.9 mmol/L (3.3-5.0) 05/21/24 16:54 Potassium 3.9 mmol/L (3.5-5.1) 05/21/24 16:48 POC Chloride 98 mmol/L (101-112) L 05/21/24 16:54 Chloride 98 mmol/L (98-107) 05/21/24 16:48 Carbon Dioxide 29 mmol/L (21-32) 05/21/24 16:48 POC Total CO2 27 mmol/L (24-31) 05/21/24 16:54 Anion Gap 9 (3-11) 05/21/24 16:48 POC Anion Gap 15.0 mmol/L (16-25) L 05/21/24 16:54 POC BUN 47 mg/dl (7-18) H 05/21/24 16:54 BUN 59 mg/dl (6-23) H 05/21/24 16:48 Creatinine 1.81 mg/dl (0.6-1.2) H 05/21/24 16:48 POC Creatinine 2.0 mg/dl (0.6-1.3) H 05/21/24 16:54 Est Cr Clr Drug Dosing Not Reportable 05/21/24 16:48 Est GFR ( Amer) 28.8 ml/min 05/21/24 16:48 Est GFR (Non-Af Amer) 24.9 ml/min 05/21/24 16:48 BUN/Creatinine Ratio 32.6 (10-20) H 05/21/24 16:48 Glucose 81 mg/dl (70-99(Fasting)) 05/21/24 16:48 POC Glucose 189 mg/dl (70-99) H 05/22/24 00:04 POC Glucose (other) 81 mg/dl (70-99) 05/21/24 16:54 Calcium 9.5 mg/dl (8.6-10.3) 05/21/24 16:48 POC Ioniz Calcium Anastasiia 1.09 mmol/l (1.12-1.32) L 05/21/24 16:54 Total Bilirubin 0.5 mg/dl (0.2-1.0) 05/21/24 16:48 AST 24 U/L (13-39) 05/21/24 16:48 ALT 22 U/L (7-52) 05/21/24 16:48 Alkaline Phosphatase 59 U/L (34-104) 05/21/24 16:48 Troponin I High Sens 24.8 pg/ml (0-14) H 05/21/24 19:23 Total Protein 7.1 gm/dl (6.0-8.3) 05/21/24 16:48 Albumin 4.4 gm/dl (3.4-5.0) 05/21/24 16:48 Globulin 2.7 gm/dl (2.5-4.0) 05/21/24 16:48 Albumin/Globulin Ratio 1.6 (0.9-2) 05/21/24 16:48 Urine Color Yellow 05/21/24 18:33 Urine Appearance Clear (Clear) 05/21/24 18:33 Urine pH 8.0 (4.5-7.5) H 05/21/24 18:33 Ur Specific [place] 1.007 (1.000-1.030) 05/21/24 18:33 Urine Protein Negative (Negative) 05/21/24 18:33 Urine Glucose (UA) Negative (Negative) 05/21/24 18:33 Urine Ketones Negative (Negative) 05/21/24 18:33 Urine Blood Negative (Negative) 05/21/24 18:33 Urine Nitrite Negative (Negative) 05/21/24 18:33 Urine Bilirubin Negative (Negative) 05/21/24 18:33 Urine Urobilinogen Negative (Negative) 05/21/24 18:33 Ur Leukocyte Esterase Negative (Negative) 05/21/24 18:[address] 05/21/24 16:23 CT cervical spine wo con CLINICAL HISTORY: fall, head injury TECHNIQUE: Multidetector row helical CT of the cervical spine was performed without administration of intravenous contrast. Coronal and sagittal reformations were obtained. Automated dose lowering techniques and/or adjustment according to patient size were utilized for this exam. Comparison: Comparison is made to CT cervical spine 10/28/2023 FINDINGS: No acute fractures or subluxations are identified. Degenerative changes are seen in the visualized spine. 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 Soft tissues are unremarkable. IMPRESSION: Degenerative changes without evidence of acute bony injury. ACT 112: Negative or not required by law. Electronically signed by: Waylon Robert M.D. 05/21/2024 5:35 PM Hand X-Ray 05/21/24 16:23 XR hand LT min 3V routine CLINICAL HISTORY: pain, laceration, fall TECHNIQUE: 3 views of the left hand were obtained. Comparison: None available at the time of this dictation. FINDINGS: There is no evidence of an acute fracture. Mild degenerative changes are seen in the interphalangeal joints. No soft tissue abnormality is seen. IMPRESSION: Degenerative changes are seen without evidence of acute abnormality. ACT 112: Negative or not required by law. Electronically signed by: Waylon Robert M.D. 05/21/2024 5:[address] 05/21/24 16:23 CT head/brain wo con CLINICAL HISTORY: fall, head injury, on plavix Technique: Contiguous axial CT images of the head were acquired from the base of the skull to the vertex without intravenous contrast administration. Images were viewed in brain, subdural and bone windows. Automated dose lowering techniques and/or adjustment according to patient size were utilized for this exam. Comparison: None available at the time of this dictation. Findings: The ventricles, basal cisterns, and cerebral sulci are normal. There is no acute intracranial hemorrhage or evidence of acute territorial infarction. Neither mass effect, shift of the midline structures, nor abnormal extra-axial fluid collections are shown. Imaged portions of the paranasal sinuses and mastoid air cells are clear. The orbits appear normal. There are no acute fractures of the calvaria or scalp swelling. Impression: No acute intracranial hemorrhage, no evidence of acute territorial infarction or other acute intracranial disease process. ACT 112: Negative or not required by law. Electronically signed by: Waylon Robert M.D. 05/21/2024 5:33 PM Abdomen/Pelvis CT 05/21/24 16:58 CT abd pelvis wo con CLINICAL HISTORY: right side pain, fall TECHNIQUE: Helical axial images of the abdomen and pelvis were obtained. Automated dose lowering techniques and/or adjustment according to patient size were utilized for this exam. This exam was performed without intravenous contrast. CT DOSE: 2329.33 mGy.cm COMPARISON: Comparison is made to CT abdomen pelvis 10/28/2023 FINDINGS: Lower chest: For findings above the diaphragm, please see CT chest performed same day. Liver: Unremarkable. No focal lesions are seen. Gallbladder and biliary tree: Cholelithiasis is seen without evidence of cholecystitis. No intra- or extrahepatic biliary ductal dilation. Pancreas: Unremarkable, no focal lesions. Spleen: Unremarkable. Adrenals: Bilateral adrenal thickening is seen. Kidneys and ureters: Unremarkable. Bladder: Unremarkable. Reproductive organs: Unremarkable. Bowel: The appendix is normal. Lymph nodes Retroperitoneal: Enlarged retroperitoneal lymph nodes measure up to 15 mm. Pelvic: Unremarkable. Mesenteric: Unremarkable. Peritoneum: Normal. Vessels: Atherosclerotic calcifications are seen. Abdominal wall: Unremarkable. Bones: Degenerative changes in the visualized spine. IMPRESSION: 1. No acute abnormality. No evidence of right-sided fractures. 2. Cholelithiasis without cholecystitis. ACT 112: Negative or not required by law. Electronically signed by: Waylon Robert M.D. 05/21/2024 6:[address] 05/21/24 16:58 CT chest diagnostic wo con CLINICAL HISTORY: right rib pain, fall TECHNIQUE: Multidetector row helical CT of the chest was performed. Coronal and sagittal reformations were obtained. Automated dose lowering techniques and/or adjustment according to patient size were utilized for this exam. Comparison: Comparison is made to CT radiation therapy 02/20/[address] chest 01/02/2024 FINDINGS: Lungs and pleura: Post radiation appearance of the right lower lobe nodule measuring 14 mm compared to 21 mm in the prior exam. 8 mm right lower lobe nodule is stable. There is residual thickening is seen. Heart and pericardium: Cardiomegaly is seen with biatrial enlargement. Vessels: Severe atherosclerotic changes in the aorta and coronary arteries. Mediastinum and elvis: Subcentimeter lymph nodes are seen. Chest wall and lower neck: Unremarkable. Abdomen: For findings below the diaphragm, please refer to CT of the abdomen dated the same. Bones: Degenerative changes in the thoracic spine. IMPRESSION: 1. No acute abnormalities and in particular no evidence of right rib fracture. 2. Response to treatment status post radiation therapy with decrease in size of right lower lobe pulmonary nodule. 8 mm indeterminate nodule in the right lower lobe is stable. ACT 112: Negative or not required by law. Electronically signed by: Waylon Robert M.D. 05/21/2024 5:40 PM Code Status & VTE Plan Code Status Full code VTE Prophylaxis Plan VTE Prophylaxis will be ordered: Yes PG Care Time/CCT Total # of Minutes Spent Total Time Spent with Patient: Total time spent is greater than 50% in coordination of care (as documented) at patient's floor/unit and/or counseling patient: Coding Level of Care Code 45167 INT INP/OBS CARE 3/75MIN Diagnoses Multiple falls R29.6 Medication side effect T88.7XXA Laceration of left hand S61.412A H/O therapeutic radiation Z92.3 Stage I squamous cell carcinoma of right lung C34.91 Laterality: right Type 2 diabetes mellitus E11.9 Hypertension I10 (HFpEF) heart failure with preserved ejection fraction I50.30 High-grade atrioventricular block I44.39 Stage 3 chronic kidney disease, unspecified whether stage 3a or 3b CKD N18.30 Chronic kidney disease stage 3 subtype: unspecified whether 3a or 3b Dyslipidemia E78.5 (5) Squamous cell carcinoma of lung, stage I Laterality: right Qualified Code(s): C34.91 - Malignant neoplasm of unspeci fied part of right bronchus or lung (10) Chronic kidney disease, stage 3 (moderate) Chronic kidney disease stage 3 subtype: unspecified whether 3a or 3b Qualified Code(s): N18.30 - Chronic kidney disease, stage 3 unspecified
[2024-05-22] MEDS ORDERED: ACETAMINOPHEN 325 MG TAB PO PRN (00:01)
[2024-05-22] MEDS: SODIUM CHLORIDE 0.9% 1,000 ML IV STA (00:20)
[2024-05-22] MEDS: OLANZapine 5 MG TABLET PO SCH (01:36)
[2024-05-22] MEDS: MIRTAZAPINE SOLTAB 15 MG PO SCH (01:36)
[2024-05-22 06:19] LABS: Basophils # (auto) 0.03 K/uL (0.00-0.20); Basophils % (auto) 0.8 %; Eosinophils # (auto) 0.05 K/uL (0.00-0.50); Eosinophils % (auto) 1.3 %; Hematocrit (blood only) 30.9 % (37.0-47.0); Hemoglobin 10.4 g/dl (12.0-16.0); Immature Granulocytes # (auto) 0.01 K/uL (0.01-0.20); Immature Granulocytes % (auto) 0.3 %; Lymphocytes # (auto) 0.39 K/uL (1.20-3.40); Lymphocytes % (auto) 10.2 %; Mean Corpuscular Hemoglobin 28.3 pg (25.0-34.0); Mean Corpuscular Hgb Conc 33.7 g/dL (32.0-36.0); Mean Corpuscular Volume 84.2 fL (80.0-100.0); Mean Platelet Volume 11.2 fL (9.4-12.4); Monocytes # (auto) 0.47 K/uL (0.11-0.59); Monocytes % (auto) 12.2 %; Neutrophils # (auto) 2.89 K/uL (1.40-6.50); Neutrophils % (auto) 75.2 %; Platelet Count 175 K/uL (130-400); RDW Coefficient of Variation 16.5 % (11.5-14.5); RDW Standard Deviation 50.7 fL (36.4-46.3); Red Blood Count 3.67 M/uL (4.20-5.40); White Blood Count 3.84 K/ul (4.8-10.8)
[2024-05-22] MEDS: METHYLPHENIDATE HCL 10 MG TABLET PO SCH (06:19)
[2024-05-22 06:36] LABS: Albumin Level 3.7 gm/dl (3.4-5.0); BUN Creatinine Ratio 32.9 (10-20); Calcium 8.8 mg/dl (8.6-10.3); Creatinine Clr Calc Pharmacy 23.4 ml/min; Est GFR (African American) 34.8 ml/min; Magnesium 2.3 mg/dl (1.7-2.4); Phosphorus 3.9 mg/dl (2.5-4.9); Potassium 3.9 mmol/L (3.5-5.1)
[2024-05-22 06:42] LABS: Troponin I High Sensitivity 29.3 pg/ml (0-14)
[2024-05-22] MEDS: hydrALAZINE TAB 50 MG TAB PO SCH (10:44)
[2024-05-22] MEDS: ASCORBIC ACID 500 MG TAB PO SCH (10:45)
[2024-05-22] MEDS: VENLAFAXINE HCL XR 150 MG CAPXR PO SCH (10:45)
[2024-05-22] MEDS: CHOLECALCIFEROL 25 MCG (1000 UNITS) TAB PO SCH (10:46)
[2024-05-22] MEDS: CLOPIDOGREL BISULFATE 75 MG TAB PO SCH (10:46)
[2024-05-22] MEDS: TOCOPHERYL, DL-ALPHA 400 UNITS 180 MG CAP PO SCH (10:46)
[2024-05-22] MEDS: amLODIPine BESYLATE 5 MG TAB PO SCH (10:46)
[2024-05-22] MEDS: LORazepam 0.5 MG TAB PO SCH (10:50)
--- NOTE | 2024-05-22 16:19 | Hospitalist Progress Note ---
Date of Service May 22, 2024 Assessment & Plan (1) Multiple falls: (2) Medication side effect: (3) Laceration of left hand: (4) H/O therapeutic radiation: (5) Squamous cell carcinoma of lung, stage I: (6) Type 2 diabetes mellitus: (7) Hypertension: (8) (HFpEF) heart failure with preserved ejection fraction: (9) High-grade atrioventricular block: (10) Chronic kidney disease, stage 3 (moderate): (11) Dyslipidemia: Plan Multiple falls/medication side effect/rumination disorder/depression- Patient had multiple falls over the past few days after having mirtazapine increased from 15 to 45 mg at bedtime Continue methylphenidate, olanzapine, venlafaxine and lorazepam Resume mirtazapine at 15 mg per family request Orthostatic hypotension - pt's SBP dropped into the 60s - LE compression stockings - given resting hypertension, concerned about starting midodrine - will request cardiology evaluation Diabetes mellitus- Hold glargine placed on Accu-Cheks with NovoLog SSI Increased troponin/hypertension/HFpEF- The patient will be admitted to telemetry for serial cardiac enzymes, serial EKG's, cardiac rhythm monitoring Initial troponin 23.2, with follow-up 24.8, without acute EKG changes. Likely type II Continue amlodipine, hydralazine and clopidogrel Hold furosemide Acute kidney injury superimposed on CKD- Creatinine 1.81, with base 1.54 Hold lisinopril and furosemide Placed on NSS at 80 mL/h x 1 L Recheck laboratories in a.m. Lung cancer- CT chest with decreasing right lower lobe pulmonary nodule suggesting response to radiation therapy Admission and Anticipated Discharge Date Admission Date: May 21, 2024 Subjective No acute events overnight Currently no new complaints Physical Exam Physical Exam: Gen: no acute distress HEENT: NC/AT, MMM CVS: s1s2 nl, RRR Lungs: CTAB Abd: soft, nontender Ext: left hand dressing with edematous fingers Results & Data Results & Data Vital Signs (Past 12 Hours) Vital Signs Temp Pulse Resp BP Pulse Ox O2 Del Method 05/22/24 15:29 36.8 C 88 20 147/71 H 93 Room Air 05/22/24 11:17 Room Air 05/22/24 11:10 36.4 C L 74 18 148/58 H 94 Room Air 05/22/24 08:11 36.6 C 75 18 154/76 H 95 Room Air PG Care Time/CCT Total # of Minutes Spent Total Time Spent with Patient: Total time spent is greater than 50% in coordination of care (as documented) at patient's floor/unit and/or counseling patient: Coding Level of Care Code 93014 SUB INP/OBS CARE 2/35MIN Diagnoses Multiple falls R29.6 Medication side effect T88.7XXA Laceration of left hand S61.412A H/O therapeutic radiation Z92.3 Stage I squamous cell carcinoma of right lung C34.91 Laterality: right Type 2 diabetes mellitus E11.9 Hypertension I10 (HFpEF) heart failure with preserved ejection fraction I50.30 High-grade atrioventricular block I44.39 Stage 3 chronic kidney disease, unspecified whether stage 3a or 3b CKD N18.30 Chronic kidney disease stage 3 subtype: unspecified whether 3a or 3b Dyslipidemia E78.5 (5) Squamous cell carcinoma of lung, stage I Laterality: right Qualified Code(s): C34.91 - Malignant neoplasm of unspecified part of right bronchus or lung (10) Chronic kidney disease, stage 3 (moderate) Chronic kidney disease stage 3 subtype: unspecified whether 3a or 3b Qualified Code(s): N18.30 - Chronic kidney disease, stage 3 unspecified
[2024-05-22] MEDS ORDERED: OLANZapine 5 MG TABLET PO SCH (21:00)
[2024-05-22] MEDS ORDERED: MIRTAZAPINE SOLTAB 15 MG PO SCH (21:00)
[2024-05-22] MEDS: ATORVASTATIN 40 MG TAB PO SCH (21:33)
[2024-05-23 06:11] LABS: Basophils # (auto) 0.03 K/uL (0.00-0.20); Basophils % (auto) 0.7 %; Eosinophils % (auto) 2.4 %; Hematocrit (blood only) 29.5 % (37.0-47.0); Hemoglobin 9.8 g/dl (12.0-16.0); Immature Granulocytes # (auto) 0.01 K/uL (0.01-0.20); Immature Granulocytes % (auto) 0.2 %; Lymphocytes # (auto) 0.61 K/uL (1.20-3.40); Lymphocytes % (auto) 14.5 %; Mean Corpuscular Hgb Conc 33.2 g/dL (32.0-36.0); Mean Corpuscular Volume 84.3 fL (80.0-100.0); Mean Platelet Volume 11.1 fL (9.4-12.4); Monocytes # (auto) 0.55 K/uL (0.11-0.59); Monocytes % (auto) 13.1 %; Neutrophils # (auto) 2.91 K/uL (1.40-6.50); Neutrophils % (auto) 69.1 %; Platelet Count 168 K/uL (130-400); RDW Coefficient of Variation 16.4 % (11.5-14.5); RDW Standard Deviation 50.9 fL (36.4-46.3); White Blood Count 4.21 K/ul (4.8-10.8)
[2024-05-23 06:28] LABS: Albumin Level 3.7 gm/dl (3.4-5.0); BUN Creatinine Ratio 29.5 (10-20); Calcium 8.7 mg/dl (8.6-10.3); Creatinine Clr Calc Pharmacy 24.8 ml/min; Est GFR (African American) 37.4 ml/min; Est GFR (Non-African American) 32.3 ml/min; Magnesium 2.2 mg/dl (1.7-2.4); Phosphorus 3.3 mg/dl (2.5-4.9); Potassium 3.8 mmol/L (3.5-5.1)
--- NOTE | 2024-05-23 08:09 | XRay Report ---
KUB HISTORY: abdominal distension COMPARISON: Abdomen and pelvis CT 05/21/2024. FINDINGS: Mildly distended gas and stool-filled colon. There is a moderate to large amount of well-fo rmed stool seen throughout the colon. No dilated loops of small bowel to suggest a small bowel obstru ction. Moderate right and mild left hip osteoarthritis is noted. No renal calculi. No ureteral calcu li. No pneumoperitoneum or pneumatosis. IMPRESSION: 1. Nonobstructive bowel gas pattern. 2. Moderate to large amount of well-formed stool within the colon. ACT 112: Negative or not required by law. Electronically signed by: Willam Reyes M.D. 05/23/2024 8:08 AM
--- NOTE | 2024-05-23 08:23 | Hospitalist Progress Note ---
Date of Service May 23, 2024 Assessment & Plan (1) Multiple falls: (2) Medication side effect: (3) Laceration of left hand: (4) H/O therapeutic radiation: (5) Squamous cell carcinoma of lung, stage I: (6) Type 2 diabetes mellitus: (7) Hypertension: (8) (HFpEF) heart failure with preserved ejection fraction: (9) High-grade atrioventricular block: (10) Chronic kidney disease, stage 3 (moderate): (11) Dyslipidemia: Plan #Multiple falls/medication side effect/rumination disorder/depression- Patient had multiple falls over the past few days after having mirtazapine increased from 15 to 45 mg at bedtime Continue methylphenidate, olanzapine, venlafaxine and lorazepam Resume mirtazapine at 15 mg per family request - OT recs rehab, CM consulted #Orthostatic hypotension - pt's SBP dropped into the 60s on 05/22/24, today, this has not been an issue - LE compression stockings #Anemia - chronic - Hgb stable #Diabetes mellitus- Hold glargine placed on Accu-Cheks with NovoLog SSI #Hand laceration - s/p stitches in the ED, remove in about 7 days #Increased troponin/hypertension/HFpEF- The patient will be admitted to telemetry for serial cardiac enzymes, serial EKG's, cardiac rhythm monitoring Initial troponin 23.2, with follow-up 24.8, without acute EKG changes. Likely type II Continue amlodipine, hydralazine and clopidogrel Hold furosemide #Acute kidney injury superimposed on CKD- Creatinine 1.81, with base 1.54 Hold lisinopril and furosemide Placed on NSS at 80 mL/h x 1 L Recheck laboratories in a.m. #Lung cancer- CT chest with decreasing right lower lobe pulmonary nodule suggesting response to radiation therapy Admission and Anticipated Discharge Date Admission Date: May 21, 2024 Subjective No acute events overnight Currently no new complaints Physical Exam Physical Exam: Gen: no acute distress HEENT: NC/AT, MMM CVS: s1s2 nl, RRR Lungs: CTAB Abd: soft, nontender Ext: left hand dressing with edematous fingers Results & Data Results & Data Vital Signs (Past 12 Hours) Vital Signs Temp Pulse Pulse Resp BP Pulse Ox O2 Del Method 05/23/24 07:37 36.8 C 84 16 123/69 94 Room Air 05/23/24 03:18 36.5 C 72 18 151/75 H 94 Room Air 05/22/24 23:30 36.4 C L 79 16 173/61 H 93 Room Air 05/22/24 22:04 75 05/22/24 21:30 Room Air PG Care Time/CCT Total # of Minutes Spent Total Time Spent with Patient: Total time spent is greater than 50% in coordination of care (as documented) at patient's floor/unit and/or counseling patient: Coding Level of Care Code 49468 SUB INP/OBS CARE 2/35MIN Diagnoses Multiple falls R29.6 Medication side effect T88.7XXA Laceration of left hand S61.412A H/O therapeutic radiation Z92.3 Stage I squamous cell carcinoma of right lung C34.91 Laterality: right Type 2 diabetes mellitus E11.9 Hypertension I10 (HFpEF) heart failure with preserved ejection fraction I50.30 High-grade atrioventricular block I44.39 Stage 3 chronic kidney disease, unspecified whether stage 3a or 3b CKD N18.30 Chronic kidney disease stage 3 subtype: unspecified whether 3a or 3b Dyslipidemia E78.5 (5) Squamous cell carcinoma of lung, stage I Laterality: right Qualified Code(s): C34.91 - Malignant neoplasm of unspecified part of right bronchus or lung (10) Chronic kidney disease, stage 3 (moderate) Chronic kidney disease stage 3 subtype: unspecified whether 3a or 3b Qualified Code(s): N18.30 - Chronic kidney disease, stage 3 unspecified
[2024-05-23] MEDS ORDERED: POLYETHYLENE (MIRALAX) 17 GM PACK PO PRN (10:54)
[2024-05-23] MEDS: DOCUSATE SODIUM/SENNA 50/8.6MG TAB PO SCH (15:12)
[2024-05-23] MEDS: POLYETHYLENE (MIRALAX) 17 GM PACK PO ONE (15:12)
[2024-05-23] MEDS ORDERED: CARBOHYDRATES FOR HYPOGLYCEMIA PO PRN (19:45)
[2024-05-23] MEDS ORDERED: GLUCOSE 40% GEL 15 GM TUBE PO PRN (19:45)
[2024-05-23] MEDS ORDERED: DEXTROSE 50% 50 ML SYRINGE IV PRN (19:45)
[2024-05-23] MEDS ORDERED: GLUCAGON FOR INJ 1 MG VIAL SQ PRN (19:45)
[2024-05-23] MEDS ORDERED: GLUCOSE 10 TAB/TUBE PO PRN (19:45)
[2024-05-23] MEDS: INSULIN ASPART PER UNIT CHARGE SC SCH (20:09)
--- NOTE | 2024-05-23 22:50 | Cardiology Consultation ---
Date of Consultation May 23, 2024 Assessment & Plan (1) Orthostatic hypotension: (2) Multiple falls: (3) Medication side effect: (4) Bilateral carotid artery stenosis: (5) Hypertension: (6) Diastolic congestive heart failure: (7) Cardiac pacemaker: Plan Cont observation for now. Presumable related to increase in the psych med. Rec support stockings-she has at home. Follow BPs for now. May have to allow mild HTN to prevent drops upon standing. Will have [facility] cardiology follow up on Friday. History of Present Illness Reason for Consultation: orthostatic hypotension patient known to [facility] cardiology Attending Physician: Jayne Pringle MD History of Present Illness The patient presents to the emergency department, with her daughter, with complaint of multiple falls over the past few days, sustaining a laceration to her left hand with her most recent fall The patient is an 84-year-old female with a past medical history including rumination disorder, lung cancer, right lower lobe pulmonary nodule, bilateral carotid artery stenosis, diabetes mellitus type 2, hypertension, cardiac pacemaker, hearing loss, HFpEF, CKD stage IIIb, nonproliferative diabetic retinopathy, dyslipidemia and history of therapeutic radiation. The patient was brought to the emergency department due to multiple falls over the past few days, sustaining a laceration to her left hand today. Her daughter reports that the patient has been more lethargic and falling since her mirtazapine was increased from 15 to 45 mg daily few days ago. The daughter provides most of the HPI and review of systems, although patient does contribute Since admission, her BPs have been trending higher and she has not had drops in BP like on admission. She is to have OT tomorrow to assess ambulation and orthostatics. Allergies Allergy/AdvReac Type Severity Reaction Status Date / Time bacitracin Allergy Mild red/itching Verified 05/21/24 20:39 neomycin Allergy Mild red/itching Verified 05/21/24 20:39 [From Neosporin ([id number])] polymyxin B Allergy Mild red/itching Verified 05/21/24 20:39 adhesive AdvReac Mild (Bandaid) Verified 05/21/24 21:20 Redness, itchy Home Medications Medication Instructions Recorded Confirmed Type [facility]ancets 30 [facility] 05/04/19 04/30/24 History Lancets) vitamin E (dl, acetate) 180 mg 180 mg PO QAM 03/27/21 05/21/24 History (400 unit) capsule venlafaxine 150 mg 300 mg PO QAM 07/03/21 05/21/24 History capsule,extended release 24 hr methylphenidate HCl 10 mg tablet 10 mg PO BID 08/15/21 05/21/24 History (Ritalin) OneTouch Ultra Test (blood sugar #400 ea 07/09/23 05/21/24 Rx diagnostic) pen needle, diabetic 32 gauge x #400 ea 09/30/23 05/21/24 Rx 5/16" (Comfort EZ Pen [place]) ascorbic acid (vitamin C) 1,000 mg 1,000 mg PO QAM 10/28/23 05/21/24 History tablet (Vitamin C) clopidogrel 75 mg tablet 75 mg PO QAM 10/28/23 05/21/24 History olanzapine 15 mg tablet 15 mg PO HS 10/28/23 05/21/24 History insulin aspart U-100 100 unit/mL See Rx Instructions subcut DAILY 01/02/24 05/21/24 Rx (3 mL) subcutaneous pen (Novolog PRN hyperglycemia #15 mL FlexPen U-100 Insulin aspart) cholecalciferol (vitamin D3) 25 25 mcg PO QAM 01/22/24 05/21/24 History mcg (1,000 unit) tablet (Vitamin D3) amlodipine 5 mg tablet 5 mg PO QAM #90 tabs 02/09/24 05/21/24 Rx Lantus Solostar U-100 Insulin 100 3 unit (0.03 mL) subcut QPM #15 mL 03/02/24 05/21/24 Rx unit/mL (3 mL) subcutaneous pen (insulin glargine) atorvastatin 40 mg tablet 40 mg PO QPM #90 tabs 03/22/24 05/21/24 Rx furosemide 20 mg tablet 20 mg PO Q OTHER DAY #45 tabs 03/22/24 05/21/24 Rx furosemide 40 mg tablet 40 mg PO Q OTHER DAY #45 tabs 03/22/24 05/21/24 Rx hydralazine 50 mg tablet 50 mg PO BID #180 tabs 04/15/24 05/21/24 Rx lorazepam 0.125 mg PO 4XD 04/21/24 05/21/24 History lisinopril 40 mg tablet 40 mg PO QAM #90 tabs 04/22/24 05/21/24 Rx mirtazapine 45 mg tablet 45 mg PO HS 05/21/24 05/21/24 History Patient History Medical History Chronic anemia Pacemaker Implanted 02/2022 (high-grade AV block), [employer] Follows with [facility] cardio History of TIA (transient ischemic attack) 2016 (per [facility] neurology records) SAH (subarachnoid hemorrhage) 2021 Congestive heart failure Essential hypertension Renal artery stenosis Following with [facility] vascular surgery History of skin cancer Melanoma Carotid artery stenosis Following with [facility] vascular surgery Pleural effusion Hx Surgical History History of thoracentesis Status post placement of cardiac pacemaker Implanted 02/2022 History of cataract surgery rt/left History of ear surgery Approximately 1984 History of dilatation and curettage Hx of tonsillectomy Family History Family/Other Family history of coronary arteriosclerosis Depression Mother Cardiovascular disease Diabetes Other Family history of bleeding disorder No family history of adverse response to anesthesia Social History Smoking Status: Former smoker Tobacco Type: Cigarettes Age Started Using Tobacco: 15; Age Quit Using Tobacco: 63; packs per day: 1; Smoking End Date: approximately 15 years ago; Second Hand Exposure: Yes (in the past); Do You Dip or Chew Tobacco: No; Hx Alcohol Use: No Hx Substance Use: No Preferred Language: Sami Communication Ability: Effective Visual Impairment: No Limitations Hearing Ability: Hard of Hearing Human Resources Admin Required: No Beliefs That Will Affect Care: None marital status: / Current Living Situation: Family Current Living Situation Comment: lives with daughter Siobhan current occupational status: retired current occupation: worked in the [employer] How many Children do You have: 2 Other Information That Helps Us Care for You: No Feels Safe at Home: Yes Safety Concerns: Feels Safe At This Time Diet: diabetic and low salt Diet Comment: 1500 ml fluids per day fluid intake caffeine: Yes during the past year weight has: remained stable Do you think of yourself as: straight/heterosexual Gender Identity: Female Assistive Devices: Walker, Wheelchair and Other Review of Systems Review of Systems: All systems reviewed & are unremarkable except as noted in HPI & below Physical Exam Physical Exam: aao x 3 in NAD; daughter present during eval Constitutional: overweight Respiratory: normal respiratory effort, lungs clear to auscultation Cardiovascular: RRR, no murmur, no edema + LE edema; varicose veins chronic skin changes Results & Data Vital Signs (Past 12 Hours) Vital Signs Temp Pulse Resp BP BP Pulse Ox O2 Del Method 05/23/24 19:40 36.4 C L 69 16 184/64 H 97 Room Air 05/23/24 15:28 36.4 C L 74 18 177/59 H 98 Room Air 05/23/24 11:47 36.4 C L 74 16 126/71 97 Room Air Laboratory Results Abnormal lab results 05/23/24 05/23/24 05/23/24 Range/Units 05:44 12:20 17:11 WBC 4.21 L (4.8-10.8) K/ul RBC 3.50 L (4.20-5.40) M/uL Hgb 9.8 L (12.0-16.0) g/dl Hct 29.5 L (37.0-47.0) % RDW Std Deviation 50.9 H (36.4-46.3) fL RDW Coeff of Juanita 16.4 H (11.5-14.5) % Lymph # (Auto) 0.61 L (1.20-3.40) K/uL BUN 43 H (6-23) mg/dl Creatinine 1.46 H (0.6-1.2) mg/dl BUN/Creatinine Ratio 29.5 H (10-20) POC Glucose 146 H 139 H (70-99) mg/dl 05/23/24 Range/Units 20:08 WBC (4.8-10.8) K/ul RBC (4.20-5.40) M/uL Hgb (12.0-16.0) g/dl Hct (37.0-47.0) % RDW Std Deviation (36.4-46.3) fL RDW Coeff of Juanita (11.5-14.5) % Lymph # (Auto) (1.20-3.40) K/uL BUN (6-23) mg/dl Creatinine (0.6-1.2) mg/dl BUN/Creatinine Ratio (10-20) POC Glucose 125 H (70-99) mg/dl Diagnostic Findings ECHO 2022 shows LVH preserved LVEF no wall motion abnormalities Medications Administered Amlodipine Besylate (Amlodipine Besylate 5 Mg Tab) 5 mg PO QAM [facility] Stop: 06/21/24 08:59 Last Admin: 05/23/24 08:27 Dose: 5 mg Documented By: Admin: 05/22/24 10:46 Dose: 5 mg Documented By: MARU Ascorbic Acid (Ascorbic Acid 500 Mg Tab) [facility]: 06/21/24 08:59 Last Admin: 05/23/24 08:26 Dose: 1,000 mg Documented By: Admin: 05/22/24 10:45 Dose: 1,000 mg Documented By: MARU Atorvastatin Calcium (Atorvastatin 40 Mg Tab) 40 mg PO QPM [facility] Stop: 06/21/24 20:59 Last Admin: 05/23/24 20:02 Dose: 40 mg Documented By: Admin: 05/22/24 21:33 Dose: 40 mg Documented By: PEDRO Clopidogrel Bisulfate (Clopidogrel Bisulfate 75 Mg Tab) [facility] Stop: 06/21/24 08:59 Last Admin: 05/23/24 08:26 Dose: 75 mg Documented By: Admin: 05/22/24 10:46 Dose: 75 mg Documented By: MARU Hydralazine HCl (Hydralazine Tab 50 Mg Tab) 50 mg PO BID [facility] Stop: 06/21/24 08:59 Last Admin: 05/23/24 20:03 Dose: 50 mg Documented By: Admin: 05/23/24 08:26 Dose: 50 mg Documented By: Admin: 05/22/24 21:33 Dose: 50 mg Documented By: Admin: 05/22/24 10:44 Dose: 50 mg Documented By: MARU Insulin Aspart (Insulin Aspart Per Unit Charge) 0 units SC ACHS [facility] Stop: 06/22/24 20:59 Last Admin: 05/23/24 20:09 Dose: Not Given Documented By: PEDRO Lorazepam (Lorazepam 0.5 Mg Tab) 0.125 mg PO QID [facility] Stop: 06/21/24 08:59 Last Admin: 05/23/24 20:02 Dose: 0.125 mg Documented By: Admin: 05/23/24 17:30 Dose: Not Given Documented By: Admin: 05/23/24 15:11 Dose: 0.125 mg Documented By: Admin: 05/23/24 08:30 Dose: 0.125 mg Documented By: Admin: 05/22/24 21:32 Dose: 0.125 mg Documented By: Admin: 05/22/24 18:20 Dose: 0.125 mg Documented By: Admin: 05/22/24 15:02 Dose: 0.125 mg Documented By: Admin: 05/22/24 10:50 Dose: 0.125 mg Documented By: MARU Methylphenidate HCl (Methylphenidate Hcl 10 Mg Tablet) 10 mg PO BID@0700,1400 [facility] Stop: 06/05/24 06:59 Last Admin: 05/23/24 15:12 Dose: 10 mg Documented By: Admin: 05/23/24 06:12 Dose: 10 mg Documented By: Admin: 05/22/24 15:06 Dose: 10 mg Documented By: Admin: 05/22/24 06:19 Dose: 10 mg Documented By: PEDRO Mirtazapine (Mirtazapine Soltab 15 Mg) 15 mg PO [facility] Stop: 06/21/24 00:34 Last Admin: 05/23/24 20:03 Dose: 15 mg Documented By: Admin: 05/22/24 21:33 Dose: 15 mg Documented By: Admin: 05/22/24 01:36 Dose: 15 mg Documented By: PEDRO Olanzapine (Olanzapine 5 Mg Tablet) 15 mg PO HS [facility] Stop: 06/21/24 00:34 Last Admin: 05/23/24 20:03 Dose: 15 mg Documented By: Admin: 05/22/24 21:33 Dose: 15 mg Documented By: Admin: 05/22/24 01:36 Dose: 15 mg Documented By: PEDRO Senna/Docusate Sodium (Docusate Sodium/Senna 50/8.6mg Tab) 1 tab PO BID [facility] Stop: 06/22/24 10:59 Last Admin: 05/23/24 20:02 Dose: 1 tab Documented By: Admin: 05/23/24 15:12 Dose: 1 tab Documented By: MARU Venlafaxine HCl (Venlafaxine Hcl Xr 150 Mg Capxr) 300 mg PO [facility] Stop: 06/21/24 08:59 Last Admin: 05/23/24 08:27 Dose: 300 mg Documented By: Admin: 05/22/24 10:45 Dose: 300 mg Documented By: MARU Vitamin D (Cholecalciferol 25 Mcg (1000 Units) Tab) 25 mcg PO [facility] Stop: 06/21/24 08:59 Last Admin: 05/23/24 08:27 Dose: 25 mcg Documented By: Admin: 05/22/24 10:46 Dose: 25 mcg Documented By: MARU Vitamin E (Tocopheryl, Dl-Alpha 400 Units 180 Mg Cap) 180 mg PO [facility] Stop: 06/21/24 08:59 Last Admin: 05/23/24 08:26 Dose: 180 mg Documented By: Admin: 05/22/24 10:46 Dose: 180 mg Documented By: MARU ECG Additional Comments: Apaced V sensed baseline ST changes (6) Diastolic congestive heart failure Heart failure chronicity: acute Qualified Code(s): I50.31 - Acute diastolic (congestive) heart failure
[2024-05-24 07:12] VITALS: RESP 18
[2024-05-24 08:01] LABS: Basophils # (auto) 0.03 K/uL (0.00-0.20); Basophils % (auto) 0.7 %; Eosinophils # (auto) 0.14 K/uL (0.00-0.50); Eosinophils % (auto) 3.3 %; Hematocrit (blood only) 33.2 % (37.0-47.0); Immature Granulocytes # (auto) 0.02 K/uL (0.01-0.20); Immature Granulocytes % (auto) 0.5 %; Lymphocytes % (auto) 11.9 %; Mean Corpuscular Hemoglobin 28.1 pg (25.0-34.0); Mean Corpuscular Hgb Conc 33.1 g/dL (32.0-36.0); Mean Corpuscular Volume 84.7 fL (80.0-100.0); Mean Platelet Volume 11.3 fL (9.4-12.4); Monocytes % (auto) 11.9 %; Neutrophils # (auto) 3.01 K/uL (1.40-6.50); Neutrophils % (auto) 71.7 %; Platelet Count 178 K/uL (130-400); RDW Coefficient of Variation 16.1 % (11.5-14.5); RDW Standard Deviation 50.1 fL (36.4-46.3); Red Blood Count 3.92 M/uL (4.20-5.40)
[2024-05-24 08:31] LABS: Albumin Level 3.9 gm/dl (3.4-5.0); BUN Creatinine Ratio 27.4 (10-20); Creatinine Clr Calc Pharmacy 31.2 ml/min; Est GFR (African American) 48.9 ml/min; Est GFR (Non-African American) 42.2 ml/min; Magnesium 2.1 mg/dl (1.7-2.4); Phosphorus 3.4 mg/dl (2.5-4.9); Potassium 4.3 mmol/L (3.5-5.1)
--- NOTE | 2024-05-24 08:34 | Hospitalist Progress Note ---
Date of Service May 24, 2024 Assessment & Plan (1) Multiple falls: (2) Medication side effect: (3) Laceration of left hand: (4) H/O therapeutic radiation: (5) Squamous cell carcinoma of lung, stage I: (6) Type 2 diabetes mellitus: (7) Hypertension: (8) (HFpEF) heart failure with preserved ejection fraction: (9) High-grade atrioventricular block: (10) Chronic kidney disease, stage 3 (moderate): (11) Dyslipidemia: Plan #Multiple falls/medication side effect/rumination disorder/depression- Patient had multiple falls over the past few days after having mirtazapine increased from 15 to 45 mg at bedtime Continue methylphenidate, olanzapine, venlafaxine and lorazepam Resume mirtazapine at 15 mg per family request - OT recs rehab, CM consulted #Orthostatic hypotension - pt's SBP dropped into the 60s on 05/22/24, today, this has not been an issue - LE compression stockings #Resting HTN - cont amlodipine, hydralazine resumed lisinopril (renal fn at baseline), cont to hold lasix at this time #Anemia - chronic - Hgb stable #Diabetes mellitus- - Hold glargine placed on Accu-Cheks with NovoLog SSI - blood glucose stable #Hand laceration - s/p stitches in the ED, remove in about 7 days #Increased troponin/HFpEF- The patient will be admitted to telemetry for serial cardiac enzymes, serial EKG's, cardiac rhythm monitoring Initial troponin 23.2, with follow-up 24.8, without acute EKG changes. Likely type II Continue amlodipine, hydralazine and clopidogrel Hold furosemide #Acute kidney injury superimposed on CKD- Creatinine 1.81, with base 1.54, currently 1.17 - resumed lisinopril, cont to hold furosemide - monitor Cr closely #Lung cancer- CT chest with decreasing right lower lobe pulmonary nodule suggesting response to radiation therapy Admission and Anticipated Discharge Date Admission Date: May 23, 2024 Subjective No acute events overnight Currently no new complaints Review of Systems Review of Systems: Comprehensive ROS completed Physical Exam Physical Exam: Gen: no acute distress HEENT: NC/AT, MMM CVS: s1s2 nl, RRR Lungs: CTAB Abd: soft, nontender Ext: left hand dressing, edema resolved Psych: pleasant, cooperative Results & Data Results & Data Vital Signs (Past 12 Hours) Vital Signs Temp Pulse Pulse Resp BP Pulse Ox O2 Del Method 05/24/24 07:15 75 05/24/24 07:09 36.9 C 85 18 173/70 H 95 Room Air 05/24/24 03:18 36.8 C 100 H 16 125/65 94 Room Air 05/24/24 00:12 36.3 C L 75 16 157/66 H 95 Room Air 05/23/24 21:34 80 PG Care Time/CCT Total # of Minutes Spent Total Time Spent with Patient: Total time spent is greater than 50% in coordination of care (as documented) at patient's floor/unit and/or counseling patient: Coding Diagnoses Multiple falls R29.6 Medication side effect T88.7XXA Laceration of left hand S61.412A H/O therapeutic radiation Z92.3 Stage I squamous cell carcinoma of right lung C34.91 Laterality: right Type 2 diabetes mellitus E11.9 Hypertension I10 (HFpEF) heart failure with preserved ejection fraction I50.30 High-grade atrioventricular block I44.39 Stage 3 chronic kidney disease, unspecified whether stage 3a or 3b CKD N18.30 Chronic kidney disease stage 3 subtype: unspecified whether 3a or 3b Dyslipidemia E78.5 (5) Squamous cell carcinoma of lung, stage I Laterality: right Qualified Code(s): C34.91 - Malignant neoplasm of unspecified part of right bronchus or lung (10) Chronic kidney disease, stage 3 (moderate) Chronic kidney disease stage 3 subtype: unspecified whether 3a or 3b Qualified Code(s): N18.30 - Chronic kidney disease, stage 3 unspecified
[2024-05-24] MEDS ORDERED: amLODIPine BESYLATE 5 MG TAB PO SCH (09:00)
[2024-05-24] MEDS: lisinopril 40 MG TAB PO SCH (09:26)
[2024-05-24 11:06] VITALS: TEMP 97.5; O2SAT 96
--- NOTE | 2024-05-24 16:03 | Discharge Summary ---
Discharge Summary Date of Service May 24, 2024 Principal Dx & Hospital Course #1 = Principal Diagnosis (1) Multiple falls: (2) Medication side effect: (3) Laceration of left hand: (4) H/O therapeutic radiation: (5) Squamous cell carcinoma of lung, stage I: (6) Type 2 diabetes mellitus: (7) Hypertension: (8) (HFpEF) heart failure with preserved ejection fraction: (9) High-grade atrioventricular block: (10) Chronic kidney disease, stage 3 (moderate): (11) Dyslipidemia: Plan #Multiple falls/medication side effect/rumination disorder/depression- Patient had multiple falls over the past few days after having mirtazapine increased from 15 to 45 mg at bedtime Continue methylphenidate, olanzapine, venlafaxine and lorazepam Resume mirtazapine at 15 mg per family request - OT recs home with 24h care and pt is able to provide this care at home. CM on board #Orthostatic hypotension - pt's SBP dropped into the 60s on 05/22/24, today, this has not been an issue - LE compression stockings #Resting HTN - cont amlodipine, hydralazine resumed lisinopril (renal fn at baseline), resume lasix on discharge #Anemia - chronic - Hgb stable #Diabetes mellitus- - Hold glargine placed on Accu-Cheks with NovoLog SSI - blood glucose stable #Hand laceration - s/p stitches in the ED, remove in about 7 days #Increased troponin/HFpEF- The patient will be admitted to telemetry for serial cardiac enzymes, serial EKG's, cardiac rhythm monitoring Initial troponin 23.2, with follow-up 24.8, without acute EKG changes. Likely type II Continue amlodipine, hydralazine and clopidogrel Hold furosemide #Acute kidney injury superimposed on CKD- Creatinine 1.81, with base 1.54, currently 1.17 - resumed lisinopril, resume lasix on discharge - monitor Cr closely #Lung cancer- CT chest with decreasing right lower lobe pulmonary nodule suggesting response to radiation therapy Admission HPI Per Admitting Provider The patient is an 84-year-old female with a past medical history including rumination disorder, lung cancer, right lower lobe pulmonary nodule, bilateral carotid artery stenosis, diabetes mellitus type 2, hypertension, cardiac pacemaker, hearing loss, HFpEF, CKD stage IIIb, nonproliferative diabetic retinopathy, dyslipidemia and history of therapeutic radiation. The patient was brought to the emergency department due to multiple falls over the past few days, sustaining a laceration to her left hand today. Her daughter reports that the patient has been more lethargic and falling since her mirtazapine was increased from 15 to 45 mg daily few days ago. The daughter provides most of the HPI and review of systems, although patient does contribute Discharge Exam Gen: no acute distress HEENT: NC/AT, MMM CVS: s1s2 nl, RRR Lungs: CTAB Abd: soft, nontender Ext: left hand dressing, edema resolved Psych: pleasant, cooperative Discharge Plan Discharge Items Patient Disposition: Home - Self-Care Reason For Visit: S/P FALL, MEDICATION SIDE EFFECT Discharge Diagnosis: Fall due to medicaton side effect Condition on Discharge: Good Activity: Resume your previous activity Activity Comment: 24 hr supervision with activity is necessary Non-emergency contact: Primary Care Provider Call non-emergency contact if: you have any medication questions and your symptoms worsen Follow-up/Referrals: Aretha Shore DO [Primary Care Provider] - Diet: Carb Consistent or DM2 and Low Sodium (2gm) Addtl Attending Provider Instructions: Pls follow up with your PCP and your material control supervisor Monitor your blood pressure at home Move slowly to avoid sudden changes in position Pending Studies at Discharge: No Stand-Alone Forms: My [facility] [employer], Smoking Cessation Medications and DC Order Prescriptions: New mirtazapine 15 mg Tablet,Disintegrating 15 mg PO HS Qty: 30 0RF Continued methylphenidate HCl [Ritalin] 10 mg tablet 10 mg PO BID insulin aspart U-100 [Novolog FlexPen U-100 Insulin] 100 unit/mL (3 mL) insulin pen See Rx Instructions subcut DAILY MDD 15 units PRN (Reason: hyperglycemia) Qty: 15 1RF Rx Instructions: per sliding scale subcutaneously; carb to insulin ration amlodipine 5 mg tablet 5 mg PO QAM Qty: 90 3RF insulin glargine [Lantus Solostar U-100 Insulin] 100 unit/mL (3 mL) insulin pen 3 unit subcut QPM Qty: 15 3RF hydralazine 50 mg tablet 50 mg PO BID Qty: 180 3RF lisinopril 40 mg tablet 40 mg PO QAM Qty: 90 3RF (DME) lancets [OneTouch Delica Lancets] 30 gauge misc See Dose Instructions .ROUTE .MEDSUPPLY Qty: 25 Rx Instructions: As directed lorazepam liquid 0.125 mg PO 4XD (DME) pen needle, diabetic [Comfort EZ Pen [place]] 32 gauge x 5/16" needle See Rx Instructions .Route Qty: 400 3RF Rx Instructions: use for daily injections, change needle with each of 4 injections daily venlafaxine 150 mg capsule,extended release 24hr 300 mg PO QAM Rx Instructions: 2 tablet dose vitamin E (dl, acetate) 400 unit capsule 180 mg PO QAM (DME) OneTouch Ultra Test Strip See Rx Instructions .ROUTE .MEDSUPPLY Qty: 400 3RF Rx Instructions: test 4 times a day atorvastatin 40 mg tablet 40 mg PO QPM Qty: 90 3RF Rx Instructions: take 1 tablet by mouth once daily furosemide 20 mg tablet 20 mg PO Q OTHER DAY Qty: 45 3RF Rx Instructions: Alternate Furosemide 20 mg with 40 mg every other day furosemide 40 mg tablet 40 mg PO Q OTHER DAY Qty: 45 3RF Rx Instructions: Alternate Furosemide 20 mg with 40 mg every other day ascorbic acid (vitamin C) [Vitamin C] 1,000 mg Tablet 1,000 mg PO QAM olanzapine 15 mg tablet 15 mg PO HS clopidogrel 75 mg tablet 75 mg PO QAM Rx Instructions: take 1 tablet by mouth every morning cholecalciferol (vitamin D3) [Vitamin D3] 25 mcg (1,000 unit) Tablet 25 mcg PO QAM Discontinued mirtazapine 45 mg tablet 45 mg PO HS Discharge Orders: Discharge Order (Routine); Ordered 05/24/24 Ordered By: Jayne Pringle Admission Data Admit Date/Time: 05/23/24 14:50 Attending Provider: Jayne Pringle Admit Provider: Jayne Pringle Primary Care Provider: Aretha Shore Other Providers: Cyrus Squires Hospital Stay Data Consultations 05/21/24 20:24 ED Decision to Admit Stat Diagnostic Imagining Performed 05/21/24 16:23 CT cervical spine wo con Stat CT head/brain wo con Stat 05/21/24 16:58 CT abd pelvis wo con Stat CT chest diagnostic wo con Stat Pending Results Patient Have Any Pending Studies at Discharge: No Discharge Instructions Given to Patient (Per Discharging Provider) Pls follow up with your PCP and your material control supervisor Monitor your blood pressure at home Move slowly to avoid sudden changes in position Total Time Total Time Spent Total Time Spent (In Minutes): 60 Coding Level of Care Code 02684 INP/OBS DISCH >30 MIN Diagnoses Multiple falls R29.6 Medication side effect T88.7XXA Laceration of left hand S61.412A H/O therapeutic radiation Z92.3 Stage I squamous cell carcinoma of right lung C34.91 Laterality: right Type 2 diabetes mellitus E11.9 Hypertension I10 (HFpEF) heart failure with preserved ejection fraction I50.30 High-grade atrioventricular block I44.39 Stage 3 chronic kidney disease, unspecified whether stage 3a or 3b CKD N18.30 Chronic kidney disease stage 3 subtype: unspecified whether 3a or 3b Dyslipidemia E78.5
[2024-05-24 16:36] VITALS: BP 184/64; PULSE 72
[2024-05-25] MEDS ORDERED: amLODIPine BESYLATE 5 MG TAB PO SCH (09:00)
--- NOTE | 2024-05-26 15:41 | Electrocardiogram Report ---
Test Reason : Blood Pressure : */* mmHG Vent. Rate : 76 BPM Atrial Rate : 76 BPM P-R Int : 214 ms QRS Dur : 164 ms QT Int : 458 ms P-R-T Axes : -9 154 -11 degrees QTcB Int : 515 ms Atrial-sensed ventricular-paced rhythm with prolonged AV conduction Abnormal ECG When compared with ECG of 10-Jan-2023 21:23, No significant change was found Confirmed by Abigail Oliveira ([id number]) on 05/22/2024 1:33:24 PM Referred By: REFERRED SELF Confirmed By: Abigail Oliveira
== END 2024-05-24 18:34 | disposition home or self-care (01) | DRG 91 ==
LOC: 2N 14:51 → ED 14:51 → SUATTDRO 21:17 → 2N 23:40